=== PATIENT | male | born 1950 | race Caucasian/White ===

== ENCOUNTER 2017-03-01 07:56 | Inpatient (IN) | payer MEDICARE ==
[2017-03-01] VITALS (12 sets, daily range): BP systolic 128–194; BP diastolic 75–102; PULSE 96–116; RESP 16–20; TEMP 98.1–100.4; O2SAT 94–98
[~2017-03-01] VITALS: Ht 170.2 cm; Wt 80.1 kg
[~2017-03-01 07:56] MED LIST: CLON1TAB PO; FENT25DI TOP; MIRT30TA PO; PROP1TAB66 PO
[2017-03-01] MEDS ORDERED: CLON0.5T PO (08:22)
[2017-03-01] MEDS ORDERED: AMLO10TA2 PO (08:22)
[2017-03-01] MEDS ORDERED: MIRT30TA PO (08:22)
[2017-03-01] MEDS ORDERED: FENT25DI T-DERMAL (08:22)
[2017-03-01] MEDS ORDERED: VANCOMYCIN INJ 1,000 MG in SODIUM CHLOR 0.9% 250 ML INJ 250 ML IV STA (08:23)
[2017-03-01] MEDS ORDERED: PIPERACIL-TAZO 4.5 GM PREMIX 100 ML IV STA (08:23)
[2017-03-01] MEDS ORDERED: SODIUM CHLORID 0.9% 500 ML INJ 500 ML IV ONE (08:30)
--- NOTE | 2017-03-01 08:37 | PD ---
HPI Chief Complaint: Facial Pain or Swelling Time Seen by Provider: 08:06 Travel History International Travel<30 days: No Contact w/Intl Traveler<30days: No Traveled to known affect area: No History of Present Illness HPI This 66-year-old male is complaining of pain in his neck and redness of his neck and face. 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 He had initial surgery by Dr. Gonzalez. He was then in [place] and had several recurrences in 2003 and 2006. Recurrences involved the tongue and he had surgery as well as radiation. He also had radiation to his left maxillary sinus. There is apparently not been any sign of cancer since 2006. He has chronic pain on both sides of his neck. He is on fentanyl patches for this He has had extensive surgery as well as radiation to the neck. He was told that he could not have further radiation. He says that Tuesday night the pain in his neck started getting worse. He has had bilateral neck dissection He had trouble moving his neck. He felt like he had a fever Tuesday night. He noted the right side of his face was red this morning. The right side of his neck has been red. He is fed via feeding tube. He does not take anything by mouth. He stopped smoking in 1993. He drinks occasionally PFSH Past Medical History Cancer: Yes Diabetes: No Diminished Hearing: No Hypertension: Yes Tetanus Vaccination: Unknown Past Surgical History Appendectomy: Yes Social History Alcohol Use: Yes ([facility]) Tobacco Use: No Substance Use: No Allergies-Medications (Allergen,Severity, Reaction): Coded Allergies: morphine (Unverified Allergy, Intermediate, Hallucinations, Insomnia, ) Reported Meds & Prescriptions Reported Meds & Active Scripts Active Reported Fentanyl Patch 72 HR (Fentanyl) 25 Mcg/Hr Patch 25 Mcg T-DERMAL Q72H Clonazepam 0.5 Mg Tab 0.5 Mg PO TID Mirtazapine 30 Mg Tab 30 Mg PO HS Amlodipine (Amlodipine Besylate) 10 Mg Tab 10 Mg PO DAILY Review of Systems General / Constitutional: Positive: Fever, No: Chills Eyes: No: Diploplia HENT: Positive: Sore Throat, Neck Pain, No: Headaches, Vertigo Cardiovascular: No: Chest Pain or Discomfort, Palpitations Respiratory: No: Cough Genitourinary: No: Urgency, Frequency Musculoskeletal: No: Myalgias Skin: Positive Rash Neurologic: No: Focal Abnormalities Endocrine: No: Heat Intolerance, Cold Intolerance Hematologic/Lymphatic: No: Easy Bruising Physical Exam Narrative GENERAL: Well-developed male SKIN: Focused skin assessment warm/dry. There is erythema of the right cheek and the right side of the neck extending from the cheek to the supraclavicular area. There are a few erythematous blotches on the upper chest HEAD: Atraumatic. Normocephalic. EYES: Pupils equal and round. No scleral icterus. No injection or drainage. ENT: No nasal bleeding or discharge. Mucous membranes pink and moist. NECK: Trachea midline. No JVD. He has had bilateral neck dissection. There is erythema of the neck on the right side CARDIOVASCULAR: Regular rate and rhythm. No murmur appreciated. RESPIRATORY: No accessory muscle use. Clear to auscultation. Breath sounds equal bilaterally. GASTROINTESTINAL: Abdomen soft, non-tender, nondistended. Hepatic and splenic margins not palpable. Gastrostomy site is present MUSCULOSKELETAL: No obvious deformities. No clubbing. No cyanosis. No edema. NEUROLOGICAL: Awake and alert. No obvious cranial nerve deficits. Motor grossly within normal limits. Speech is somewhat difficult to understand because of the patient's extensive surgery but the content is appropriate PSYCHIATRIC: Appropriate mood and affect; insight and judgment normal. Data Data Last Documented VS Vital Signs Date Time Temp Pulse Resp B/P (MAP) Pulse Ox O2 Delivery O2 Flow Rate FiO2 03/01/17 08:53 104 16 154/82 (106) 97 Room Air 03/01/17 07:58 98.1 Orders Orders Complete Blood Count With Diff (03/01/17 08:23) Comprehensive Metabolic Panel (03/01/17 08:23) Lactic Acid Sepsis Protocol (03/01/17 08:23) Urinalysis - C+S If Indicated (03/01/17 08:23) Blood Culture (03/01/17 08:23) Chest, Single Ap (03/01/17 08:23) Blood Glucose (03/01/17 08:23) Ecg Monitoring (03/01/17 08:23) Iv Access Insert/Monitor (03/01/17 08:23) Oximetry (03/01/17 08:23) Piperacil-Tazo 4.5 Gm Premix (Zosyn 4.5 (03/01/17 08:23) Vancomycin Inj (Vancomycin Inj) (03/01/17 08:23) Sodium Chlorid 0.9% 500 Ml Inj (Ns 500 M (03/01/17 08:30) Ondansetron Inj (Zofran Inj) (03/01/17 08:45) Hydromorphone Pf Inj (Dilaudid Pf Inj) (03/01/17 08:45) Ct Soft Tiss Neck W Iv Cont (03/01/17 08:57) Potassium Chloride Eff (K-Lyte Cl Eff) (03/01/17 09:00) Iohexol 350 Inj (Omnipaque 350 Inj) (03/01/17 09:35) Hydromorphone Pf Inj (Dilaudid Pf Inj) (03/01/17 10:15) Admit Order (Ed Use Only) (03/01/17 10:05) Labs Laboratory Tests Test 03/01/17 08:30 White Blood Count 14.4 TH/MM3 Red Blood Count 4.41 MIL/MM3 Hemoglobin 14.2 GM/DL Hematocrit 42.1 % Mean Corpuscular Volume 95.4 FL Mean Corpuscular Hemoglobin 32.1 PG Mean Corpuscular Hemoglobin Concent 33.6 % Red Cell Distribution Width 13.3 % Platelet Count 179 TH/MM3 Mean Platelet Volume 9.4 FL Neutrophils (%) (Auto) 85.5 % Lymphocytes (%) (Auto) 8.5 % Monocytes (%) (Auto) 5.6 % Eosinophils (%) (Auto) 0.1 % Basophils (%) (Auto) 0.3 % Neutrophils # (Auto) 12.4 TH/MM3 Lymphocytes # (Auto) 1.2 TH/MM3 Monocytes # (Auto) 0.8 TH/MM3 Eosinophils # (Auto) 0.0 TH/MM3 Basophils # (Auto) 0.0 TH/MM3 CBC Comment DIFF FINAL Differential Comment Blood Urea Nitrogen 15 MG/DL Creatinine 0.80 MG/DL Random Glucose 124 MG/DL Total Protein 7.9 GM/DL Albumin 3.2 GM/DL Calcium Level 8.5 MG/DL Alkaline Phosphatase 94 U/L Aspartate Amino Transf (AST/SGOT) 19 U/L Alanine Aminotransferase (ALT/SGPT) 33 U/L Total Bilirubin 0.5 MG/DL Sodium Level 135 MEQ/L Potassium Level 3.1 MEQ/L Chloride Level 99 MEQ/L Carbon Dioxide Level 29.7 MEQ/L Anion Gap 6 MEQ/L Estimat Glomerular Filtration Rate 97 ML/MIN Lactic Acid Level 2.0 mmol/L MDM Medical Decision Making Medical Screen Exam Complete: Yes Emergency Medical Condition: Yes Medical Record Reviewed: Yes Differential Diagnosis Differential includes cellulitis of the face and neck, edema, recurrent tumor Narrative Course Patient's white count is elevated at 14,000. CT scan of the soft tissues of the neck shows postsurgical changes and no definite mass or adenopathy is noted. There are no prior studies to compare this to. Chest x-ray is negative Sepsis Criteria SIRS Criteria (2 or more): Heart rate over 90, WBC > 05927, < 4000 or > 10% bands Sepsis Criteria (SIRS+source): Infect source susp/known Diagnosis Primary Impression: Cellulitis of face Additional Impression: Cellulitis of neck Admitting Information Admitting Physician Requests: Admit Pascual Sosa MD Mar 01, 2017 08:37
[2017-03-01] MEDS ORDERED: ONDANSETRON HCL 4 MG/2 ML VIAL IV PUSH ONE (08:45)
[2017-03-01] MEDS ORDERED: HYDROmorphone HCL PF 2 MG/ML VIAL IV PUSH ONE ×2 (08:45→10:15)
[2017-03-01] MEDS ORDERED: HYDROmorphone HCL PF 1 MG/ML VIAL IV PUSH ONE ×2 (08:45→10:15)
[2017-03-01 08:47] LABS: AUTOMATED NEUTROPHIL # 12.4 TH/MM3 (1.8-7.7); BASOPHIL % 0.3 % (0.0-2.0); EOSINOPHIL % 0.1 % (0.0-4.0); HEMATOCRIT 42.1 % (39.0-51.0); LYMPH % 8.5 % (9.0-44.0); LYMPHOCYTE # 1.2 TH/MM3 (1.0-4.8); MEAN CELL VOLUME 95.4 FL (80.0-100.0); MEAN CORPUSCULAR HEMOGLOBIN 32.1 PG (27.0-34.0); MEAN CORPUSCULAR HGB CONC 33.6 % (32.0-36.0); MONO % 5.6 % (0.0-8.0); NEUT % 85.5 % (16.0-70.0); PLATELET COUNT 179 TH/MM3 (150-450); RED BLOOD COUNT 4.41 MIL/MM3 (4.50-5.90); RED CELL DISTRIBUTION WIDTH 13.3 % (11.6-17.2); WHITE BLOOD COUNT 14.4 TH/MM3 (4.0-11.0)
[2017-03-01 08:48] LABS: HEMO FLAGS DIFF FINAL
[2017-03-01 08:56] LABS: CHLORIDE 99 MEQ/L (98-107); POTASSIUM 3.1 MEQ/L (3.5-5.1); SODIUM (NA) 135 MEQ/L (136-145)
[2017-03-01 08:59] LABS: ANION GAP 6 MEQ/L (5-15); BICARBONATE 29.7 MEQ/L (21.0-32.0); BLOOD UREA NITROGEN 15 MG/DL (7-18)
[2017-03-01] MEDS ORDERED: POTASSIUM CHLORIDE 25 MEQ EFFERVESCENT TAB PO ONE (09:00)
[2017-03-01 09:02] LABS: ALT (GPT) 33 U/L (12-78); AST (GOT) 19 U/L (15-37); GLOMERULAR FILTRATION RATE 97 ML/MIN (>89)
[2017-03-01 09:04] LABS: TOTAL BILIRUBIN ADULT 0.5 MG/DL (0.2-1.0)
[2017-03-01 09:05] LABS: ALKALINE PHOSPHATASE 94 U/L (45-117)
--- NOTE | 2017-03-01 09:10 | RADRPT ---
EXAM DATE/TIME: 03/01/2017 08:42 [facility] COMPARISON: No previous studies available for comparison. INDICATIONS : Short of breath, facial swelling, neck pain. MEDICAL HISTORY : Head and neck cancer, radiation SURGICAL HISTORY : None. ENCOUNTER: Initial ACUITY: 2 days PAIN SCORE: 0/10 LOCATION: Bilateral chest FINDINGS: A single view of the chest demonstrates the lungs to be symmetrically aerated without evidence of mas s, infiltrate or effusion. The cardiomediastinal contours are unremarkable. Osseous structures are intact with a healed left clavicular fracture. CONCLUSION: Normal examination. Clips overlie the supraclavicular region. Denny Gumzan MD on March 01, 2017 at 9:07 Board Certified Radiologist. This report was verified electronically.
[2017-03-01] MEDS ORDERED: IOHEXOL 350 MG/ML 10 ML VIAL (for RAD DIAG) IVCONTRAST ONE (09:35)
--- NOTE | 2017-03-01 09:48 | RADRPT ---
EXAM DATE/TIME: 03/01/2017 09:22 [facility] COMPARISON: No previous studies available for comparison. INDICATIONS : Bilateral head and neck pain. Right facial redness and swelling. IV CONTRAST: 65 cc Omnipaque 350 (iohexol) IV RADIATION DOSE: 13.77 CTDIvol (mGy) MEDICAL HISTORY : Hypertension. Cancer of head and neck. Tongue cancer. SURGICAL HISTORY : Appendectomy. Bilateral neck dissection. ENCOUNTER: Initial ACUITY: 2 days PAIN SCALE: 10/10 LOCATION: Bilateral neck TECHNIQUE: Volumetric scanning of the neck was performed. Using automated exposure control and adjustment of th e mA and/or kV according to patient size, radiation dose was kept as low as reasonably achievable to obtain optimal diagnostic quality images. DICOM format image data is available electronically for r eview and comparison. FINDINGS: There are postsurgical changes involving the base of tongue to the right of midline. There is excisio n of the hyoid bone to the right of midline. Surgical clips and soft tissue fullness is seen involvin g the base of the tongue towards the left. No stranding of the adjacent fat. There is a heterogeneous appearance to the thyroid cartilage likely post therapy related. No appreciable mass or adenopathy. Bilateral carotid stents observed. Note is made of a replaced right subclavian artery. A degenerative cervical spine. CONCLUSION: 1. Post therapy changes involving the neck as detailed above. No recurrent mass or adenopathy appreci ated. In the setting of evaluating for subtle changes relating to recurrence prior examinations are e ssential. 2. Bilateral carotid stents. Tr Galan Jr., MD on March 01, 2017 at 9:39 Board Certified Radiologist. This report was verified electronically.
[2017-03-01 10:52] LABS: BLOOD, URINE NEG (NEG); GLUCOSE,URINE NEG (NEG); KETONE, URINE NEG (NEG); NITRITE,URINE NEG (NEG); PH, URINE 7.5 (5.0-8.5)
[2017-03-01 11:04] LABS: METHOD OF COLLECTION CATH; URINE COLOR YELLOW (YELLW/STRAW)
[2017-03-01 11:05] LABS: COMMENT (UR) CATH-CULT NOT IND; CULTURE IF INDICATED CATH CULTURE NOT IND; RBC, URINE 0-3 /hpf (0-3); RENAL EPITHELIAL CELLS 0-5 /hpf; SQUAMOUS EPITHELIAL CELL URINE 0-5 /hpf (0-5)
[2017-03-01] MEDS ORDERED: Vancomycin Consult Pharmacy 1 EA OTHER SCH (11:15)
[2017-03-01] MEDS ORDERED: fentaNYL 25 MCG/HR PATCH T-DERMAL SCH (12:45)
[2017-03-01] MEDS ORDERED: NALOXONE HCL 0.4 MG/ML AMP IV PUSH PRN (12:45)
[2017-03-01] MEDS ORDERED: clonazePAM 0.5 MG TAB PO SCH (13:00)
--- NOTE | 2017-03-01 13:24 | MH ---
cc: KERWIN LUA M.D. DATE OF ADMISSION: 03/01/2017 ADMISSION DIAGNOSES 1. Possible cellulitis in the right face and neck region. 2. 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 3. Hypertension. 4. Chronic major depression. 5. Anxiety. 6. History of carotid artery disease with bilateral stent placements. 7. Chronic gastrostomy tube feedings secondary to poor swallowing ability and prior aspiration. PERTINENT HISTORY This is a 66-year-old white male who came to the emergency room today because of pain in the right side of his face and right neck region primarily with increased swelling of the right cheek area over the last couple days. He has felt warm and hot at times. He has not checked his temperature but thought he may have had a fever. He was seen in the ED and had a mildly elevated white blood cell count. He was admitted for possible cellulitis. He was given a dose of vancomycin and Zosyn in the ED. He has a long history of previous treatment for her head and neck cancer. Originally he had a squamous cell carcinoma of the neck, had surgery and radiation therapy back in the for regional recurrence of cancer in the neck and had another neck dissection and 2004 and radiation therapy. He had also involvement of the base of tongue at that time and had part of his tongue removed on the right side. He has had part of his tonsillar soft palate region resected, part of his right epiglottis resected in the past with split thickness graft reconstitution. He has had radiation on three separate occasions and his last recurrence was and 2006. He had recurrence in the possible nasal sinus area and radiation and chemotherapy then and apparently had chemistry before that. Apparently he has been cancer-free for awhile now. He is on disability, has gastrostomy tube feedings because he has had severe aspiration in the past with pneumonia and sepsis. He is under treatment for hypertension as mentioned. He denies any heart disease, diabetes, thyroid disease, liver or kidney disease, colon disease or stroke other than he had a TIA. PAST SURGICAL HISTORY 1. He had an appendectomy in 2000. He had head and neck surgeries as mentioned with initial neck dissection in 1993. 1. He had a left neck dissection in 2003. 2. He had a right posterior hemiglossectomy in 2003. 3. He had part of his tonsillar region and lateral soft palate removed with right epiglottic resection and split thickness graft reconstruction. 4. He has had carotid artery stents on the left side in 2001 and on the right side in 2005. It sounds like this may have been more related to fibromuscular dysplasia from prior radiation therapy. 5. He had a gastrostomy tube placed in 2003. ALLERGIES He says that MORPHINE sometimes will cause him to hallucinate. MEDICATIONS 1. Clonazepam. He takes a 1 mg tablet, generally is just taking about half a tablet no more than three times a day. 2. Mirtazapine 30 mg at night for depression. 3. Fentanyl patch 25 mcg patch per hour every 72 hours. 4. Amlodipine 10 mg a day for blood pressure. FAMILY HISTORY His mother is living at 82. She has had possible thyroid cancer. She has had leukemia. Father in his mid-seventies of a stroke, had diabetes. SOCIAL HISTORY He is . He is on disability since 2003. 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 He smoked two packs per day for 25 years prior to quitting in 1993. He drinks liquor but only a couple times a month. REVIEW OF SYSTEMS GENERAL: He has felt warm and thinks maybe he had a low-grade fever even though none was recorded in the ED. HEENT: With the right facial pain. He does not swallow food because of aspiration problems in the past. CARDIOVASCULAR: No chest pain, orthopnea, PND. PULMONARY: No cough, hemoptysis, wheezing. GI: He has a gastrostomy tube. He has no vomiting, diarrhea, constipation, melena, rectal bleeding. : Without complaints. No hematuria. EXTREMITIES: Without swelling. MUSCULOSKELETAL: He does have chronic neck pain from his radiation. He has been on chronic pain treatment. He states his neck pain is worse in the last 2-3 days and it hurts for him to turn his neck. It hurts mainly in the anterior portion of his neck. NEURO: No confusion, focal weakness of the arms or legs. No sensory loss. PHYSICAL EXAMINATION GENERAL: Pleasant male in no distress. He is hard to understand because of part of his tongue being removed which affects his articulation. VITAL SIGNS: His pulse is around 102, BP 120/82, respirations 18, temperature 99.3, O2 sat 95%. HEENT: TMs clear. Pupils equal. Sclerae nonicteric. His right cheek area is puffy, a little tender and red. He has a orozco which makes it difficult to see the skin well underneath there but he has some slight redness extending down to the underside of his mandible. He has a lot of rigidity of his neck from prior radiation and surgeries and just scarring from that. In his mouth he has absence of part of the right side of the tongue. No teeth present. HEART: Regular rate and rhythm. No murmur. LUNGS: Clear. ABDOMEN: Soft, nontender, no masses. EXTREMITIES: Pulses 2+. NEURO: Oriented x3. Cranial nerves intact. Motor strength symmetrical. Sensation intact. LABORATORY His white count was 14.4, hemoglobin 14.2, platelets are good. Sodium 135, potassium was 3.1. He was given potassium in the ED; his BUN and creatinine were good. His AST, ALT, alkaline phosphatase, total protein were good. Albumin 3.2, lactic acid 2.0. Urinalysis was unremarkable. IMAGING STUDIES Chest x-ray showed no acute process. Neck CT scan showed no evidence of any recurrent disease. There were post-therapy changes involving the neck from prior radiation with postsurgical changes involving the base of tongue to the right of midline with prior excision of the hyoid bone to the right of midline. He had some surgical clips present and soft tissue fullness at the base of the tongue towards the left. There were bilateral carotid stents observed. There was some degeneration of the cervical spine as well. ASSESSMENT As noted. PLAN 1. He has been put on Zosyn and vancomycin. 2. I will obtain ID consult just to see if they agree with our diagnosis and treatment at this point. 3. He has been given potassium in the ED for his slight hypokalemia. 4. His BMP and CBC will be checked tomorrow. 5. We will give him Dilaudid for pain and maintain his home meds. 6. DVT prophylaxis will be with SCDs and BRIGIDA guzmane. We will allow him to ambulate as tolerated. 7. He will continue on his gastrostomy tube feedings with Jevity 1.5. He uses 4 cans a day. MD JODY Santiago/AMY /12:46 PM /1:10 PM
[2017-03-01] MEDS ORDERED: HYDROmorphone HCL PF 0.5 MG/0.5 ML SYRINGE IV PUSH PRN (13:30)
[2017-03-01] MEDS: fentaNYL 25 MCG/HR PATCH T-DERMAL SCH ×2 (13:46→16:01)
[2017-03-01] MEDS: HYDROmorphone HCL PF 2 MG/ML VIAL IV PUSH PRN ×2 (14:01→21:30)
--- NOTE | 2017-03-01 16:05 | ED.CB ---
ED Call Back Communication I was called to the floor at around 3:00. The patient was declared a code. He had apparently become cyanotic and unresponsive. On my arrival the patient was somewhat lethargic and short of breath. He was on supplemental oxygen. He was maintaining an airway. Over the course of a few minutes he became more alert and appeared to be breathing well. He was initially confused and did not completely resolve. It is difficult to assess his mental status due to his speech impediment. His color improved and his vital signs were stable. No interventions were performed as he appeared to be improving. Etiology of the episode is not clear, it may have been a seizure or medication reaction Pascual Sosa MD Mar 01, 2017 16:05
[2017-03-01] MEDS: VANCOMYCIN INJ 1,500 MG in SODIUM CHLORID 0.9% 500 ML INJ 500 ML IV SCH (16:17)
[2017-03-01] MEDS: PIPERACIL-TAZO 4.5 GM PREMIX 100 ML IV SCH ×2 (18:17→23:30)
--- NOTE | 2017-03-01 19:49 | PD.CONS ---
History of Present Illness Service Infectious disease Consult Requested By Dr Gokul Abarca Reason for Consult Possible rt facial cellulitis Primary Care Physician Ondina Boyer MD Diagnoses: (1) Cellulitis of face (2) Cellulitis of neck History of Present Illness This is a 66-year-old white male who came to the hospital for increased pain and swelling of the right side of his face and neck that started 3 days before admission. He is now in the ICU as earlier today a code was called when he was cyanotic and unresponsive. At this time patient is alert , oriented. He has been running low grade fevers today. He has a complicated history with squamous cell cancer involving head and neck- first diagnosed in the - treated with surgery and radiation. Recurred in 2003 - - had surgery and radiation again and then again in 2006. Part of tongue and palate had to be removed and patient does have a peg tube now. Past Family Social History Allergies: Coded Allergies: morphine (Unverified Allergy, Intermediate, Hallucinations, Insomnia, ) Past Medical History PAST MEDICAL HISTORY 1. Squamous cell cancer of head and neck - with multiple recurrences requiring extensive surgery and radiation 2. Hypertension PAST SURGICAL HISTORY 1. He had an appendectomy in 2000. He had head and neck surgeries as mentioned with initial neck dissection in 1993. 1. He had a left neck dissection in 2003. 2. He had a right posterior hemiglossectomy in 2003. 3. He had part of his tonsillar region and lateral soft palate removed with right epiglottic resection and split thickness graft reconstruction. 4. He has had carotid artery stents on the left side in 2001 and on the right side in 2005. It sounds like this may have been more related to fibromuscular dysplasia from prior radiation therapy. 5. He had a gastrostomy tube placed in 2003. Active Ordered Medications IV Vancomycin and Zosyn Family History Father - Stroke, DM Mother with ? Thyroid cancer and h/o leukemia Social History . Lives at home On Disability Past h/o smoking Physical Exam Vital Signs Vital Signs Date Time Temp Pulse Resp B/P (MAP) Pulse Ox O2 Delivery O2 Flow Rate FiO2 03/01/17 16:00 100.4 97 16 153/76 (101) 97 03/01/17 16:00 100.4 97 16 153/76 (101) 97 03/01/17 15:04 116 20 166/84 (111) 98 03/01/17 14:59 99.9 97 20 194/102 (132) 98 03/01/17 14:00 96 Nasal Cannula 2.00 03/01/17 11:12 99.3 102 18 128/82 (97) 95 03/01/17 10:55 03/01/17 10:20 103 16 135/78 (97) 98 Nasal Cannula 2.00 03/01/17 08:53 104 16 154/82 (106) 97 Room Air 03/01/17 08:41 16 94 Room Air 03/01/17 08:18 16 03/01/17 07:58 98.1 110 16 148/75 (99) 97 Physical Exam GENERAL: This is a chronically ill patient with swelling and erythema of right side of face/ cheek and neck SKIN: Facial cellulitis on right cheek/ face HEAD: Reconstruction on right side. EYES: Pupils equal round and reactive. Extraocular motions intact. No scleral icterus. No injection or drainage. ENT: Mucosa dry. Partial amputation of tongue NECK: Trachea midline. No JVD or lymphadenopathy. Supple, nontender, no meningeal signs. CARDIOVASCULAR: Regular rate and rhythm without murmurs, gallops, or rubs. RESPIRATORY: Clear to auscultation. Breath sounds equal bilaterally. Some rhonchi GASTROINTESTINAL: Abdomen soft, non-tender, nondistended. No hepato-splenomegaly , or palpable masses. No guarding.Peg tube MUSCULOSKELETAL: Extremities without clubbing, cyanosis, or edema. No joint tenderness, effusion, or edema noted. No calf tenderness. Negative Homans sign bilaterally. NEUROLOGICAL: Awake and alert. Cranial nerves II through XII intact. Motor and sensory grossly within normal limits. Five out of 5 muscle strength in all muscle groups. Normal speech. Laboratory Laboratory Tests Test 03/01/17 08:30 03/01/17 10:40 White Blood Count 14.4 Red Blood Count 4.41 Hemoglobin 14.2 Hematocrit 42.1 Mean Corpuscular Volume 95.4 Mean Corpuscular Hemoglobin 32.1 Mean Corpuscular Hemoglobin Concent 33.6 Red Cell Distribution Width 13.3 Platelet Count 179 Mean Platelet Volume 9.4 Neutrophils (%) (Auto) 85.5 Lymphocytes (%) (Auto) 8.5 Monocytes (%) (Auto) 5.6 Eosinophils (%) (Auto) 0.1 Basophils (%) (Auto) 0.3 Neutrophils # (Auto) 12.4 Lymphocytes # (Auto) 1.2 Monocytes # (Auto) 0.8 Eosinophils # (Auto) 0.0 Basophils # (Auto) 0.0 CBC Comment DIFF FINAL Differential Comment Blood Urea Nitrogen 15 Creatinine 0.80 Random Glucose 124 Total Protein 7.9 Albumin 3.2 Calcium Level 8.5 Alkaline Phosphatase 94 Aspartate Amino Transf (AST/SGOT) 19 Alanine Aminotransferase (ALT/SGPT) 33 Total Bilirubin 0.5 Sodium Level 135 Potassium Level 3.1 Chloride Level 99 Carbon Dioxide Level 29.7 Anion Gap 6 Estimat Glomerular Filtration Rate 97 Lactic Acid Level 2.0 Urine Collection Type CATH Urine Color YELLOW Urine Turbidity CLEAR Urine pH 7.5 Urine Specific [place] 1.033 Urine Protein 100 Urine Glucose (UA) NEG Urine Ketones NEG Urine Occult Blood NEG Urine Nitrite NEG Urine Bilirubin NEG Urine Leukocyte Esterase NEG Urine RBC 0-3 Urine Squamous Epithelial Cells 0-5 Urine Renal Epithelial Cells 0-5 Microscopic Urinalysis Comment CATH-CULT NOT IND Urine Collection Time 10:40 Date/Time Source Procedure Growth Status 03/01/17 08:35 Blood Peripheral Aerobic Blood Culture Pending Received 03/01/17 08:35 Blood Peripheral Anaerobic Blood Culture Pending Received Result Diagram: 03/01/17 0830 03/01/17 0830 Assessment and Plan Problem List: (1) Cellulitis of face ICD Codes: L03.211 - Cellulitis of face Status: Acute Plan: Follow Blood cultures Continue IV Vancomycin- pharmacy to dose Continue IV Zosyn- maximize dose Add Fluconazole 200 mg IV daily (2) Cellulitis of neck ICD Codes: L03.221 - Cellulitis of neck Status: Acute Veronica Stahl MD Mar 01, 2017 19:49
[2017-03-01] MEDS: FLUCONAZOLE 200 MG PREMIX BAG 100 ML IV SCH (21:29)
[2017-03-01] MEDS: MIRTAZAPINE 15 MG TAB PO SCH (21:30)
[2017-03-01] MEDS: clonazePAM 0.5 MG TAB PO SCH (21:32)
[2017-03-01] MEDS ORDERED: LISINOPRIL 10 MG TAB PO ONE (23:20)
[2017-03-02] VITALS (8 sets, daily range): BP systolic 108–156; BP diastolic 69–83; PULSE 92–108; RESP 14–21; TEMP 98.4–100.3; O2SAT 95–98
[2017-03-02] MEDS: VANCOMYCIN INJ 1,500 MG in SODIUM CHLORID 0.9% 500 ML INJ 500 ML IV SCH ×2 (02:30→17:06)
[2017-03-02] MEDS: HYDROmorphone HCL PF 2 MG/ML VIAL IV PUSH PRN ×5 (04:31→19:32)
[2017-03-02 05:16] LABS: BICARBONATE 29.1 MEQ/L (21.0-32.0)
[2017-03-02 05:17] LABS: AUTOMATED NEUTROPHIL # 10.4 TH/MM3 (1.8-7.7); BASOPHIL # 0.1 TH/MM3 (0-0.2); BASOPHIL % 0.6 % (0.0-2.0); EOSINOPHIL % 0.1 % (0.0-4.0); LYMPH % 13.1 % (9.0-44.0); LYMPHOCYTE # 1.7 TH/MM3 (1.0-4.8); MEAN CELL VOLUME 96.1 FL (80.0-100.0); MEAN CORPUSCULAR HEMOGLOBIN 32.4 PG (27.0-34.0); MEAN CORPUSCULAR HGB CONC 33.7 % (32.0-36.0); MONO % 4.8 % (0.0-8.0); NEUT % 81.4 % (16.0-70.0); PLATELET COUNT 184 TH/MM3 (150-450); RED BLOOD COUNT 4.16 MIL/MM3 (4.50-5.90); RED CELL DISTRIBUTION WIDTH 12.8 % (11.6-17.2); WHITE BLOOD COUNT 12.8 TH/MM3 (4.0-11.0)
[2017-03-02 05:20] LABS: HEMO FLAGS DIFF FINAL
[2017-03-02] MEDS: PIPERACIL-TAZO 4.5 GM PREMIX 100 ML IV SCH ×5 (05:21→23:34)
[2017-03-02] MEDS: POTASSIUM CHLORIDE 25 MEQ EFFERVESCENT TAB PO SCH ×2 (08:00→19:33)
[2017-03-02] MEDS: LISINOPRIL 10 MG TAB PO SCH (08:00)
--- NOTE | 2017-03-02 09:08 | HHI.PR ---
Subjective Remarks He still complains of pain with motion of his neck and head. He has slightly less facial pain. I also should note that he had an episode yesterday afternoon on the 3rd floor where he was briefly unresponsive. He was reported to me by the nurse as have some clenching of his hands and slight rigidity with unconsciousness. She call a code but by the time people arrived he has awakened and appeared to be alert. There was no abnormality of his vital signs or oxygen saturation noted. The episode lasted very briefly and he was not noted to have any postictal like lethargy or confusion. On questioning him today he states he has never had any epilepsy or seizures and he had not warning signs for the episode. He was transferred to the Intermediate care unit and has been stable overnight with no acute symptoms. Objective Vitals Vital Signs Date Time Temp Pulse Resp B/P (MAP) Pulse Ox O2 Delivery O2 Flow Rate FiO2 03/02/17 04:00 92 03/02/17 04:00 100.3 92 18 134/83 (100) 97 03/02/17 00:01 100 16 153/79 (103) 97 03/02/17 00:00 106 03/01/17 20:01 98 18 149/90 (109) 97 03/01/17 20:00 96 03/01/17 19:55 96 Nasal Cannula 3.00 03/01/17 16:00 100.4 97 16 153/76 (101) 97 03/01/17 16:00 100.4 97 16 153/76 (101) 97 03/01/17 15:04 116 20 166/84 (111) 98 03/01/17 14:59 99.9 97 20 194/102 (132) 98 03/01/17 14:00 96 Nasal Cannula 2.00 03/01/17 11:12 99.3 102 18 128/82 (97) 95 03/01/17 10:55 03/01/17 10:20 103 16 135/78 (97) 98 Nasal Cannula 2.00 03/01/17 08:53 104 16 154/82 (106) 97 Room Air Result Diagram: 03/02/17 0450 03/02/17 0450 Other Results Laboratory Tests Test 03/01/17 08:30 03/01/17 10:40 03/02/17 04:50 White Blood Count 14.4 TH/MM3 12.8 TH/MM3 Red Blood Count 4.41 MIL/MM3 4.16 MIL/MM3 Hemoglobin 14.2 GM/DL 13.5 GM/DL Hematocrit 42.1 % 40.0 % Mean Corpuscular Volume 95.4 FL 96.1 FL Mean Corpuscular Hemoglobin 32.1 PG 32.4 PG Mean Corpuscular Hemoglobin Concent 33.6 % 33.7 % Red Cell Distribution Width 13.3 % 12.8 % Platelet Count 179 TH/MM3 184 TH/MM3 Mean Platelet Volume 9.4 FL 9.0 FL Neutrophils (%) (Auto) 85.5 % 81.4 % Lymphocytes (%) (Auto) 8.5 % 13.1 % Monocytes (%) (Auto) 5.6 % 4.8 % Eosinophils (%) (Auto) 0.1 % 0.1 % Basophils (%) (Auto) 0.3 % 0.6 % Neutrophils # (Auto) 12.4 TH/MM3 10.4 TH/MM3 Lymphocytes # (Auto) 1.2 TH/MM3 1.7 TH/MM3 Monocytes # (Auto) 0.8 TH/MM3 0.6 TH/MM3 Eosinophils # (Auto) 0.0 TH/MM3 0.0 TH/MM3 Basophils # (Auto) 0.0 TH/MM3 0.1 TH/MM3 CBC Comment DIFF FINAL DIFF FINAL Differential Comment Blood Urea Nitrogen 15 MG/DL 9 MG/DL Creatinine 0.80 MG/DL 0.55 MG/DL Random Glucose 124 MG/DL 106 MG/DL Total Protein 7.9 GM/DL Albumin 3.2 GM/DL Calcium Level 8.5 MG/DL 8.2 MG/DL Alkaline Phosphatase 94 U/L Aspartate Amino Transf (AST/SGOT) 19 U/L Alanine Aminotransferase (ALT/SGPT) 33 U/L Total Bilirubin 0.5 MG/DL Sodium Level 135 MEQ/L 136 MEQ/L Potassium Level 3.1 MEQ/L 3.0 MEQ/L Chloride Level 99 MEQ/L 101 MEQ/L Carbon Dioxide Level 29.7 MEQ/L 29.1 MEQ/L Anion Gap 6 MEQ/L 6 MEQ/L Estimat Glomerular Filtration Rate 97 ML/MIN 149 ML/MIN Lactic Acid Level 2.0 mmol/L Urine Collection Type CATH Urine Color YELLOW Urine Turbidity CLEAR Urine pH 7.5 Urine Specific [place] 1.033 Urine Protein 100 mg/dL Urine Glucose (UA) NEG mg/dL Urine Ketones NEG mg/dL Urine Occult Blood NEG Urine Nitrite NEG Urine Bilirubin NEG Urine Leukocyte Esterase NEG Urine RBC 0-3 /hpf Urine Squamous Epithelial Cells 0-5 /hpf Urine Renal Epithelial Cells 0-5 /hpf Microscopic Urinalysis Comment CATH-CULT NOT IND Urine Collection Time 10:40 Imaging Last Impressions Neck CT 03/01/17 0857 Signed Impressions: Service Date/Time: Wednesday, March 01, 2017 09:22 - CONCLUSION: 1. Post therapy changes involving the neck as detailed above. No recurrent mass or adenopathy appreciated. In the setting of evaluating for subtle changes relating to recurrence prior examinations are essential. 2. Bilateral carotid stents. Tr Galan Jr., MD Chest X-Ray 03/01/17822 Signed Impressions: Service Date/Time: Wednesday, March 01, 2017 08:42 - CONCLUSION: Normal examination. Clips overlie the supraclavicular region. Denny Guzman MD Objective Remarks Exam: He is alert. Patient is difficult for me to understand because of his difficulty articulating due to part of his tongue having been excised. HEENT: Pupils equal, no scleral icterus, Mouth with part of the right side of the tongue missing; he still has some slight swelling and slight redness of the right cheek area Neck: prior neck surgery and radiation changes; he has discomfort of his neck when he tries to turn his head Heart: RRR without murmur Lungs: Clear Abdomen: Soft, nontender, gastrostomy tube present Extremities: No edema, pulses present Neuro: alert, no motor or sensory deficits A/P Assessment and Plan Assessment: --Right facial cellulitis --Hx of squamous cell carcinoma of the head and neck with several operative procedures in the past along with radiation therapy on three prior occasions and prior chemotherapy --Neck pain--may be musculoskeletal --Hypertension --Chronic major depression --Hx of bilateral carotid artery stents --Anxiety --Chronic gastrostomy tube feedings secondary to poor swallowing ability and prior aspiration episodes --Hypokalemia Plan: He was seen by Dr Stahl ([place]) who recommended continuing his Zosyn and Vancomycin. She also added Fluconazole. I ordered some additional potassium. I will order an EEG but it is not clear what caused his brief lapse of unconsciousness yesterday. I will order a CT cervical spine to look for significant cervical disc disease. He is receiving pain medication which helps. Gokul Abarca MD Mar 02, 2017 09:08
--- NOTE | 2017-03-02 10:10 | RADRPT ---
EXAM DATE/TIME: 03/02/2017 09:22 [place] COMPARISON: No previous studies available for comparison. INDICATIONS : Neck pain. RADIATION DOSE: ; Reconstructed from previous dataset, no dose MEDICAL HISTORY : Hypertension. Cardiovascular disease Neck and tongue cancer. SURGICAL HISTORY : Appendectomy. Carotid stent. ENCOUNTER: Initial ACUITY: 1 week PAIN SCALE: 7/10 LOCATION: Bilateral neck TECHNIQUE: Volumetric scanning of the cervical spine was performed. Multiplanar reconstructions in the sagittal, coronal and oblique axial planes were performed. Using automated exposure control and adjustment o f the mA and/or kV according to patient size, radiation dose was kept as low as reasonably achievable to obtain optimal diagnostic quality images. DICOM format image data is available electronically f or review and comparison. FINDINGS: VERTEBRAE: Normal vertebral body height. ALIGNMENT: No evidence of subluxation. C2-C3: The bony spinal canal is normal in size. No evidence of disc bulge or herniation. The neural forami na are bilaterally patent. C3-C4: The bony spinal canal is normal in size. No evidence of disc bulge or herniation. The neural forami na are bilaterally patent. C4-C5: The bony spinal canal is normal in size. No evidence of disc bulge or herniation. The neural forami na are bilaterally patent. C5-C6: The bony spinal canal is normal in size. No evidence of disc bulge or herniation. The neural forami na are bilaterally patent. C6-C7: The bony spinal canal is normal in size. No evidence of disc bulge or herniation. The neural forami na are bilaterally patent. C7-T1: The bony spinal canal is normal in size. No evidence of disc bulge or herniation. The neural forami na are bilaterally patent. CONCLUSION: Normal examination. Denny Guzman MD on March 02, 2017 at 10:08 Board Certified Radiologist. This report was verified electronically.
[2017-03-02] MEDS ORDERED: PHARMACY ORDERED LAB ONE (15:45)
[2017-03-02] MEDS ORDERED: POTASSIUM CHLORIDE 25 MEQ EFFERVESCENT TAB PO ONE (16:15)
[2017-03-02] MEDS: FLUCONAZOLE 200 MG PREMIX BAG 100 ML IV SCH (19:31)
[2017-03-02] MEDS: clonazePAM 0.5 MG TAB PO SCH (19:32)
[2017-03-02] MEDS: MIRTAZAPINE 15 MG TAB PO SCH (19:32)
[2017-03-03] VITALS (9 sets, daily range): BP systolic 119–145; BP diastolic 68–82; PULSE 96–114; RESP 13–22; TEMP 98.9–100.3; O2SAT 95–97
[2017-03-03] MEDS: VANCOMYCIN INJ 1,500 MG in SODIUM CHLORID 0.9% 500 ML INJ 500 ML IV SCH ×3 (00:44→16:45)
[2017-03-03] MEDS: HYDROmorphone HCL PF 2 MG/ML VIAL IV PUSH PRN ×5 (03:14→20:37)
[2017-03-03] MEDS: PIPERACIL-TAZO 4.5 GM PREMIX 100 ML IV SCH ×3 (05:48→18:34)
[2017-03-03 06:14] LABS: AUTOMATED NEUTROPHIL # 7.1 TH/MM3 (1.8-7.7); BASOPHIL # 0.1 TH/MM3 (0-0.2); EOSINOPHIL # 0.1 TH/MM3 (0-0.4); EOSINOPHIL % 0.5 % (0.0-4.0); HEMATOCRIT 37.1 % (39.0-51.0); LYMPH % 16.6 % (9.0-44.0); LYMPHOCYTE # 1.7 TH/MM3 (1.0-4.8); MEAN CORPUSCULAR HEMOGLOBIN 33.3 PG (27.0-34.0); MEAN CORPUSCULAR HGB CONC 34.7 % (32.0-36.0); MONO % 10.6 % (0.0-8.0); NEUT % 71.3 % (16.0-70.0); PLATELET COUNT 164 TH/MM3 (150-450); RED BLOOD COUNT 3.86 MIL/MM3 (4.50-5.90); RED CELL DISTRIBUTION WIDTH 13.1 % (11.6-17.2); WHITE BLOOD COUNT 10.1 TH/MM3 (4.0-11.0)
[2017-03-03 06:17] LABS: HEMO FLAGS DIFF FINAL
[2017-03-03 06:22] LABS: POTASSIUM 3.5 MEQ/L (3.5-5.1)
[2017-03-03 06:25] LABS: BICARBONATE 27.7 MEQ/L (21.0-32.0)
--- NOTE | 2017-03-03 07:02 | HHI.PR ---
Subjective Remarks Patient states his facial and neck pain is getting better. He is able to move his head better without as much pain. Objective Vitals Vital Signs Date Time Temp Pulse Resp B/P (MAP) Pulse Ox O2 Delivery O2 Flow Rate FiO2 03/03/17 00:00 100.3 100 20 138/68 (91) 95 03/03/17 00:00 98 03/02/17 20:00 100.3 104 21 109/71 (84) 95 03/02/17 20:00 104 03/02/17 16:00 99.6 108 14 123/70 (87) 98 03/02/17 16:00 108 03/02/17 12:00 98.4 96 15 156/80 (105) 97 03/02/17 12:00 96 03/02/17 11:36 98 Nasal Cannula 3.00 03/02/17 08:00 99.1 96 14 108/69 (82) 98 03/02/17 08:00 96 Result Diagram: 03/03/17 0558 03/03/17 0558 Other Results Laboratory Tests Test 03/01/17 08:30 03/01/17 10:40 03/02/17 04:50 03/02/17 13:50 White Blood Count 14.4 TH/MM3 12.8 TH/MM3 Red Blood Count 4.41 MIL/MM3 4.16 MIL/MM3 Hemoglobin 14.2 GM/DL 13.5 GM/DL Hematocrit 42.1 % 40.0 % Mean Corpuscular Volume 95.4 FL 96.1 FL Mean Corpuscular Hemoglobin 32.1 PG 32.4 PG Mean Corpuscular Hemoglobin Concent 33.6 % 33.7 % Red Cell Distribution Width 13.3 % 12.8 % Platelet Count 179 TH/MM3 184 TH/MM3 Mean Platelet Volume 9.4 FL 9.0 FL Neutrophils (%) (Auto) 85.5 % 81.4 % Lymphocytes (%) (Auto) 8.5 % 13.1 % Monocytes (%) (Auto) 5.6 % 4.8 % Eosinophils (%) (Auto) 0.1 % 0.1 % Basophils (%) (Auto) 0.3 % 0.6 % Neutrophils # (Auto) 12.4 TH/MM3 10.4 TH/MM3 Lymphocytes # (Auto) 1.2 TH/MM3 1.7 TH/MM3 Monocytes # (Auto) 0.8 TH/MM3 0.6 TH/MM3 Eosinophils # (Auto) 0.0 TH/MM3 0.0 TH/MM3 Basophils # (Auto) 0.0 TH/MM3 0.1 TH/MM3 CBC Comment DIFF FINAL DIFF FINAL Differential Comment Blood Urea Nitrogen 15 MG/DL 9 MG/DL Creatinine 0.80 MG/DL 0.55 MG/DL Random Glucose 124 MG/DL 106 MG/DL Total Protein 7.9 GM/DL Albumin 3.2 GM/DL Calcium Level 8.5 MG/DL 8.2 MG/DL Alkaline Phosphatase 94 U/L Aspartate Amino Transf (AST/SGOT) 19 U/L Alanine Aminotransferase (ALT/SGPT) 33 U/L Total Bilirubin 0.5 MG/DL Sodium Level 135 MEQ/L 136 MEQ/L Potassium Level 3.1 MEQ/L 3.0 MEQ/L 3.1 MEQ/L Chloride Level 99 MEQ/L 101 MEQ/L Carbon Dioxide Level 29.7 MEQ/L 29.1 MEQ/L Anion Gap 6 MEQ/L 6 MEQ/L Estimat Glomerular Filtration Rate 97 ML/MIN 149 ML/MIN Lactic Acid Level 2.0 mmol/L Urine Collection Type CATH Urine Color YELLOW Urine Turbidity CLEAR Urine pH 7.5 Urine Specific [place] 1.033 Urine Protein 100 mg/dL Urine Glucose (UA) NEG mg/dL Urine Ketones NEG mg/dL Urine Occult Blood NEG Urine Nitrite NEG Urine Bilirubin NEG Urine Leukocyte Esterase NEG Urine RBC 0-3 /hpf Urine Squamous Epithelial Cells 0-5 /hpf Urine Renal Epithelial Cells 0-5 /hpf Microscopic Urinalysis Comment CATH-CULT NOT IND Urine Collection Time 10:40 Test 03/02/17 16:50 03/03/17 05:58 Vancomycin Level Trough 9.5 MCG/ML White Blood Count 10.1 TH/MM3 Red Blood Count 3.86 MIL/MM3 Hemoglobin 12.9 GM/DL Hematocrit 37.1 % Mean Corpuscular Volume 96.0 FL Mean Corpuscular Hemoglobin 33.3 PG Mean Corpuscular Hemoglobin Concent 34.7 % Red Cell Distribution Width 13.1 % Platelet Count 164 TH/MM3 Mean Platelet Volume 8.5 FL Neutrophils (%) (Auto) 71.3 % Lymphocytes (%) (Auto) 16.6 % Monocytes (%) (Auto) 10.6 % Eosinophils (%) (Auto) 0.5 % Basophils (%) (Auto) 1.0 % Neutrophils # (Auto) 7.1 TH/MM3 Lymphocytes # (Auto) 1.7 TH/MM3 Monocytes # (Auto) 1.1 TH/MM3 Eosinophils # (Auto) 0.1 TH/MM3 Basophils # (Auto) 0.1 TH/MM3 CBC Comment DIFF FINAL Differential Comment Blood Urea Nitrogen 14 MG/DL Creatinine 0.79 MG/DL Random Glucose 132 MG/DL Calcium Level 7.8 MG/DL Sodium Level 137 MEQ/L Potassium Level 3.5 MEQ/L Chloride Level 102 MEQ/L Carbon Dioxide Level 27.7 MEQ/L Anion Gap 7 MEQ/L Estimat Glomerular Filtration Rate 98 ML/MIN Imaging Last Impressions Cervical Spine CT 03/02/17 0000 Signed Impressions: Service Date/Time: Thursday, March 02, 2017 09:22 - CONCLUSION: Normal examination. Denny Guzman MD Neck CT 03/01/17 0857 Signed Impressions: Service Date/Time: Wednesday, March 01, 2017 09:22 - CONCLUSION: 1. Post therapy changes involving the neck as detailed above. No recurrent mass or adenopathy appreciated. In the setting of evaluating for subtle changes relating to recurrence prior examinations are essential. 2. Bilateral carotid stents. Tr Galan Jr., MD Chest X-Ray 03/01/17822 Signed Impressions: Service Date/Time: Wednesday, March 01, 2017 08:42 - CONCLUSION: Normal examination. Clips overlie the supraclavicular region. Denny Guzman MD Last Impressions Neck CT 03/01/1757 Signed Impressions: Service Date/Time: Wednesday, March 01, 2017 09:22 - CONCLUSION: 1. Post therapy changes involving the neck as detailed above. No recurrent mass or adenopathy appreciated. In the setting of evaluating for subtle changes relating to recurrence prior examinations are essential. 2. Bilateral carotid stents. Tr Galan Jr., MD Chest X-Ray 03/01/17822 Signed Impressions: Service Date/Time: Wednesday, March 01, 2017 08:42 - CONCLUSION: Normal examination. Clips overlie the supraclavicular region. Denny Guzman MD Objective Remarks Exam: He is alert. Patient is difficult for me to understand because of his difficulty articulating due to part of his tongue having been excised. HEENT: Pupils equal, no scleral icterus, Mouth with part of the right side of the tongue missing; he still has some slight swelling and slight redness of the right cheek area but is improving Neck: prior neck surgery and radiation changes; he has less discomfort of his neck when he tries to turn his head today Heart: RRR without murmur Lungs: Clear Abdomen: Soft, nontender, gastrostomy tube present Extremities: No edema, pulses present Neuro: alert, no motor or sensory deficits A/P Assessment and Plan Assessment: --Right facial cellulitis --Hx of squamous cell carcinoma of the head and neck with several operative procedures in the past along with radiation therapy on three prior occasions and prior chemotherapy --Neck pain--may be musculoskeletal --Hypertension --Chronic major depression --Hx of bilateral carotid artery stents --Anxiety --Chronic gastrostomy tube feedings secondary to poor swallowing ability and prior aspiration episodes --Hypokalemia--improved Plan: He was seen by Dr Stahl ([place]) who recommended continuing his Zosyn and Vancomycin. She also added Fluconazole. Continue these medications. I ordered some additional potassium. Transfer to 3rd floor. Gokul Abarca MD Mar 03, 2017 07:02
[2017-03-03] MEDS ORDERED: POTASSIUM CHLORIDE 25 MEQ EFFERVESCENT TAB PO ONE (08:00)
[2017-03-03] MEDS: LISINOPRIL 10 MG TAB PO SCH (08:41)
[2017-03-03] MEDS: POTASSIUM CHLORIDE 25 MEQ EFFERVESCENT TAB PO SCH ×2 (08:42→20:37)
--- NOTE | 2017-03-03 11:34 | HHI.IDPN ---
Subjective Subjective Remarks Occasional low grade fever Pain is better No shortness of breath Antibiotics IV Vancomycin Zosyn and Fluconazole Lines Peripheral IV Past Medical History PAST MEDICAL HISTORY 1. Squamous cell cancer of head and neck - with multiple recurrences requiring extensive surgery and radiation 2. Hypertension PAST SURGICAL HISTORY 1. He had an appendectomy in 2000. He had head and neck surgeries as mentioned with initial neck dissection in 1993. 1. He had a left neck dissection in 2003. 2. He had a right posterior hemiglossectomy in 2003. 3. He had part of his tonsillar region and lateral soft palate removed with right epiglottic resection and split thickness graft reconstruction. 4. He has had carotid artery stents on the left side in 2001 and on the right side in 2005. It sounds like this may have been more related to fibromuscular dysplasia from prior radiation therapy. 5. He had a gastrostomy tube placed in 2003. Allergies: Coded Allergies: morphine (Unverified Allergy, Intermediate, Hallucinations, Insomnia, ) Review of Systems Constitutional Constitutional: Fever Objective . Vital Signs Date Time Temp Pulse Resp B/P (MAP) Pulse Ox O2 Delivery O2 Flow Rate FiO2 03/03/17 09:00 96 14 03/03/17 08:11 98.9 98 21 125/72 (89) 96 03/03/17 08:00 103 03/03/17 04:14 102 22 145/82 (103) 03/03/17 04:00 100 03/03/17 00:00 100.3 100 20 138/68 (91) 95 03/03/17 00:00 98 03/02/17 20:00 100.3 104 21 109/71 (84) 95 03/02/17 20:00 104 03/02/17 16:00 99.6 108 14 123/70 (87) 98 03/02/17 16:00 108 03/02/17 12:00 98.4 96 15 156/80 (105) 97 03/02/17 12:00 96 03/02/17 11:36 98 Nasal Cannula 3.00 . Laboratory Tests Test 03/02/17 04:50 03/03/17 05:58 White Blood Count 12.8 TH/MM3 10.1 TH/MM3 Red Blood Count 4.16 MIL/MM3 3.86 MIL/MM3 Hemoglobin 13.5 GM/DL 12.9 GM/DL Hematocrit 40.0 % 37.1 % Mean Corpuscular Volume 96.1 FL 96.0 FL Mean Corpuscular Hemoglobin 32.4 PG 33.3 PG Mean Corpuscular Hemoglobin Concent 33.7 % 34.7 % Red Cell Distribution Width 12.8 % 13.1 % Platelet Count 184 TH/MM3 164 TH/MM3 Mean Platelet Volume 9.0 FL 8.5 FL Neutrophils (%) (Auto) 81.4 % 71.3 % Lymphocytes (%) (Auto) 13.1 % 16.6 % Monocytes (%) (Auto) 4.8 % 10.6 % Eosinophils (%) (Auto) 0.1 % 0.5 % Basophils (%) (Auto) 0.6 % 1.0 % Neutrophils # (Auto) 10.4 TH/MM3 7.1 TH/MM3 Lymphocytes # (Auto) 1.7 TH/MM3 1.7 TH/MM3 Monocytes # (Auto) 0.6 TH/MM3 1.1 TH/MM3 Eosinophils # (Auto) 0.0 TH/MM3 0.1 TH/MM3 Basophils # (Auto) 0.1 TH/MM3 0.1 TH/MM3 CBC Comment DIFF FINAL DIFF FINAL Differential Comment Laboratory Tests Test 03/02/17 04:50 03/02/17 13:50 03/03/17 05:58 Blood Urea Nitrogen 9 MG/DL 14 MG/DL Creatinine 0.55 MG/DL 0.79 MG/DL Random Glucose 106 MG/DL 132 MG/DL Calcium Level 8.2 MG/DL 7.8 MG/DL Sodium Level 136 MEQ/L 137 MEQ/L Potassium Level 3.0 MEQ/L 3.1 MEQ/L 3.5 MEQ/L Chloride Level 101 MEQ/L 102 MEQ/L Carbon Dioxide Level 29.1 MEQ/L 27.7 MEQ/L Anion Gap 6 MEQ/L 7 MEQ/L Estimat Glomerular Filtration Rate 149 ML/MIN 98 ML/MIN Microbiology Date/Time Source Procedure Growth Status 03/01/17 08:35 Blood Peripheral Aerobic Blood Culture - Preliminary NO GROWTH IN 2 DAYS Resulted 03/01/17 08:35 Blood Peripheral Anaerobic Blood Culture - Preliminary NO GROWTH IN 2 DAYS Resulted 03/01/17 08:30 Blood Peripheral Aerobic Blood Culture - Preliminary NO GROWTH IN 2 DAYS Resulted 03/01/17 08:30 Blood Peripheral Anaerobic Blood Culture - Preliminary NO GROWTH IN 2 DAYS Resulted Physical Exam GENERAL: This is a chronically ill patient with swelling and erythema of right side of face/ cheek and neck which is improved SKIN: Facial cellulitis on right cheek/ face- improved HEAD: Reconstruction on right side. EYES: Pupils equal round and reactive. Extraocular motions intact. No scleral icterus. No injection or drainage. ENT: Mucosa dry. Partial amputation of tongue NECK: Trachea midline. No JVD or lymphadenopathy. Supple, nontender, no meningeal signs. CARDIOVASCULAR: Regular rate and rhythm without murmurs, gallops, or rubs. RESPIRATORY: Clear to auscultation. Breath sounds equal bilaterally. Some rhonchi GASTROINTESTINAL: Abdomen soft, non-tender, nondistended. No hepato-splenomegaly , or palpable masses. No guarding.Peg tube MUSCULOSKELETAL: Extremities without clubbing, cyanosis, or edema. No joint tenderness, effusion, or edema noted. No calf tenderness. Negative Homans sign bilaterally. NEUROLOGICAL: Awake and alert. Cranial nerves II through XII intact. Motor and sensory grossly within normal limits. Five out of 5 muscle strength in all muscle groups. Slurred speech Assessment & Plan Diagnosis: (1) Cellulitis of face ICD Codes: L03.211 - Cellulitis of face Status: Acute Plan: Blood cultures- negative so far Continue IV Vancomycin- pharmacy to dose Continue IV Zosyn- maximize dose Continue Fluconazole 200 mg IV daily Leucocytosis resolved and clinically improved. If remains afebrile for 24 hrs should be able to change to Augmentin (2) Cellulitis of neck ICD Codes: L03.221 - Cellulitis of neck Status: Acute Veronica Stahl MD Mar 03, 2017 11:34
[2017-03-03] MEDS ORDERED: PHARMACY ORDERED LAB ONE (17:00)
[2017-03-03] MEDS: clonazePAM 0.5 MG TAB PO SCH (20:38)
[2017-03-03] MEDS: MIRTAZAPINE 15 MG TAB PO SCH (20:39)
[2017-03-03] MEDS: FLUCONAZOLE 200 MG PREMIX BAG 100 ML IV SCH (20:40)
[2017-03-04] VITALS: BP 131/80; PULSE 112; PULSE 96; RESP 14; TEMP 99.6; O2SAT 95
[2017-03-04] MEDS: PIPERACIL-TAZO 4.5 GM PREMIX 100 ML IV SCH ×2 (00:15→06:20)
[2017-03-04] MEDS: HYDROmorphone HCL PF 2 MG/ML VIAL IV PUSH PRN ×2 (00:16→06:21)
[2017-03-04] MEDS: VANCOMYCIN INJ 1,500 MG in SODIUM CHLORID 0.9% 500 ML INJ 500 ML IV SCH (01:14)
[2017-03-04 04:00] VITALS: BP 141/76; PULSE 102; PULSE 106; RESP 20; TEMP 98.7; O2SAT 93
[2017-03-04 06:06] LABS: AUTOMATED NEUTROPHIL # 6.1 TH/MM3 (1.8-7.7); BASOPHIL # 0.1 TH/MM3 (0-0.2); BASOPHIL % 1.3 % (0.0-2.0); EOSINOPHIL # 0.1 TH/MM3 (0-0.4); HEMATOCRIT 37.5 % (39.0-51.0); HEMO FLAGS DIFF FINAL; LYMPH % 16.3 % (9.0-44.0); LYMPHOCYTE # 1.5 TH/MM3 (1.0-4.8); MEAN CELL VOLUME 95.7 FL (80.0-100.0); MEAN CORPUSCULAR HGB CONC 33.4 % (32.0-36.0); MONO % 13.4 % (0.0-8.0); PLATELET COUNT 181 TH/MM3 (150-450); RED BLOOD COUNT 3.91 MIL/MM3 (4.50-5.90)
[2017-03-04 06:12] LABS: POTASSIUM 3.3 MEQ/L (3.5-5.1)
[2017-03-04 06:15] LABS: BICARBONATE 28.8 MEQ/L (21.0-32.0)
[2017-03-04] MEDS ORDERED: POTASSIUM CHLORIDE 20 MEQ CONTROLLED RELEASE TAB PO ONE (07:30)
--- NOTE | 2017-03-04 07:43 | HHI.PR ---
Subjective Remarks He is doing better. Less pain. No fever. Objective Vitals Vital Signs Date Time Temp Pulse Resp B/P (MAP) Pulse Ox O2 Delivery O2 Flow Rate FiO2 03/04/17 04:00 98.7 102 20 141/76 (97) 93 03/04/17 04:00 106 03/04/17 00:00 99.6 96 14 131/80 (97) 95 03/04/17 00:00 112 03/03/17 20:00 114 03/03/17 20:00 99.6 100 17 143/80 (101) 96 03/03/17 16:00 100 03/03/17 16:00 99.0 102 13 119/71 (87) 97 03/03/17 12:00 96 03/03/17 12:00 99.2 96 13 136/73 (94) 95 03/03/17 09:00 96 14 03/03/17 08:11 98.9 98 21 125/72 (89) 96 03/03/17 08:00 103 Result Diagram: 03/04/17 0549 03/04/17 0549 Other Results Laboratory Tests Test 03/02/17 13:50 03/02/17 16:50 03/03/17 05:58 03/03/17 16:35 Potassium Level 3.1 MEQ/L 3.5 MEQ/L Vancomycin Level Trough 9.5 MCG/ML 20.5 MCG/ML White Blood Count 10.1 TH/MM3 Red Blood Count 3.86 MIL/MM3 Hemoglobin 12.9 GM/DL Hematocrit 37.1 % Mean Corpuscular Volume 96.0 FL Mean Corpuscular Hemoglobin 33.3 PG Mean Corpuscular Hemoglobin Concent 34.7 % Red Cell Distribution Width 13.1 % Platelet Count 164 TH/MM3 Mean Platelet Volume 8.5 FL Neutrophils (%) (Auto) 71.3 % Lymphocytes (%) (Auto) 16.6 % Monocytes (%) (Auto) 10.6 % Eosinophils (%) (Auto) 0.5 % Basophils (%) (Auto) 1.0 % Neutrophils # (Auto) 7.1 TH/MM3 Lymphocytes # (Auto) 1.7 TH/MM3 Monocytes # (Auto) 1.1 TH/MM3 Eosinophils # (Auto) 0.1 TH/MM3 Basophils # (Auto) 0.1 TH/MM3 CBC Comment DIFF FINAL Differential Comment Blood Urea Nitrogen 14 MG/DL Creatinine 0.79 MG/DL Random Glucose 132 MG/DL Calcium Level 7.8 MG/DL Sodium Level 137 MEQ/L Chloride Level 102 MEQ/L Carbon Dioxide Level 27.7 MEQ/L Anion Gap 7 MEQ/L Estimat Glomerular Filtration Rate 98 ML/MIN Test 03/04/17 05:49 White Blood Count 9.0 TH/MM3 Red Blood Count 3.91 MIL/MM3 Hemoglobin 12.5 GM/DL Hematocrit 37.5 % Mean Corpuscular Volume 95.7 FL Mean Corpuscular Hemoglobin 32.0 PG Mean Corpuscular Hemoglobin Concent 33.4 % Red Cell Distribution Width 13.0 % Platelet Count 181 TH/MM3 Mean Platelet Volume 8.6 FL Neutrophils (%) (Auto) 68.0 % Lymphocytes (%) (Auto) 16.3 % Monocytes (%) (Auto) 13.4 % Eosinophils (%) (Auto) 1.0 % Basophils (%) (Auto) 1.3 % Neutrophils # (Auto) 6.1 TH/MM3 Lymphocytes # (Auto) 1.5 TH/MM3 Monocytes # (Auto) 1.2 TH/MM3 Eosinophils # (Auto) 0.1 TH/MM3 Basophils # (Auto) 0.1 TH/MM3 CBC Comment DIFF FINAL Differential Comment Blood Urea Nitrogen 10 MG/DL Creatinine 0.65 MG/DL Random Glucose 103 MG/DL Calcium Level 8.4 MG/DL Sodium Level 139 MEQ/L Potassium Level 3.3 MEQ/L Chloride Level 103 MEQ/L Carbon Dioxide Level 28.8 MEQ/L Anion Gap 7 MEQ/L Estimat Glomerular Filtration Rate 123 ML/MIN Imaging Last Impressions Cervical Spine CT 03/02/17 0000 Signed Impressions: Service Date/Time: Thursday, March 02, 2017 09:22 - CONCLUSION: Normal examination. Denny Guzman MD Neck CT 03/01/17 0857 Signed Impressions: Service Date/Time: Wednesday, March 01, 2017 09:22 - CONCLUSION: 1. Post therapy changes involving the neck as detailed above. No recurrent mass or adenopathy appreciated. In the setting of evaluating for subtle changes relating to recurrence prior examinations are essential. 2. Bilateral carotid stents. Tr Galan Jr., MD Chest X-Ray 03/01/17 0823 Signed Impressions: Service Date/Time: Wednesday, March 01, 2017 08:42 - CONCLUSION: Normal examination. Clips overlie the supraclavicular region. Denny Guzman MD Last Impressions Neck CT 03/01/1757 Signed Impressions: Service Date/Time: Wednesday, March 01, 2017 09:22 - CONCLUSION: 1. Post therapy changes involving the neck as detailed above. No recurrent mass or adenopathy appreciated. In the setting of evaluating for subtle changes relating to recurrence prior examinations are essential. 2. Bilateral carotid stents. Tr Galan Jr., MD Chest X-Ray 03/01/17822 Signed Impressions: Service Date/Time: Wednesday, March 01, 2017 08:42 - CONCLUSION: Normal examination. Clips overlie the supraclavicular region. Denny Guzman MD Objective Remarks Exam: He is alert. Patient is difficult for me to understand because of his difficulty articulating due to part of his tongue having been excised. HEENT: Pupils equal, no scleral icterus, Mouth with part of the right side of the tongue missing; he still has some slight swelling and slight redness of the right cheek area but it is continuing to improve with minimal swelling now Neck: prior neck surgery and radiation changes; he has much less discomfort of his neck when he tries to turn his head today Heart: RRR without murmur Lungs: Clear Abdomen: Soft, nontender, gastrostomy tube present Extremities: No edema, pulses present Neuro: alert, no motor or sensory deficits A/P Assessment and Plan Assessment: --Right facial cellulitis--much improved and afebrile --Hx of squamous cell carcinoma of the head and neck with several operative procedures in the past along with radiation therapy on three prior occasions and prior chemotherapy --Neck pain--may be musculoskeletal --Hypertension --Chronic major depression --Hx of bilateral carotid artery stents --Anxiety --Chronic gastrostomy tube feedings secondary to poor swallowing secondary to prior head and neck surgery and radiation therapy --Minimal hypokalemia Plan: I talked with Dr Stahl this morning and she states his IV Zosyn and Vancomycin can be changed to Augmentin 875mg twice a day for 14 days and the IV Fluconazole can be changed to 200mg orally once a day for 7 days. I will give him some additional potassium today. I will have the nurses ambulate him also. Gokul Abarca MD Mar 04, 2017 07:43
[2017-03-04 08:00] VITALS: BP 159/71; PULSE 102; RESP 18; TEMP 98.1; O2SAT 97
[2017-03-04] MEDS: AMOXICILLIN/CLAVULANATE K 875 MG TAB PO SCH ×2 (09:39→20:14)
[2017-03-04] MEDS: FLUCONAZOLE 200 MG TAB PO SCH (09:39)
[2017-03-04] MEDS: LISINOPRIL 10 MG TAB PO SCH (09:40)
[2017-03-04] MEDS: POTASSIUM CHLORIDE 25 MEQ EFFERVESCENT TAB PO SCH ×2 (09:40→20:15)
[2017-03-04 12:00] VITALS: BP 149/99; PULSE 98; RESP 18; TEMP 98.3; O2SAT 97
[2017-03-04] MEDS ORDERED: REMOVE OLD DURAGESIC (FENTANYL) PATCH T-DERMAL SCH (14:00)
[2017-03-04] MEDS: fentaNYL 25 MCG/HR PATCH T-DERMAL SCH (14:06)
[2017-03-04] MEDS: ACETAMINOPHEN/HYDROcodone 325 MG/5 MG TAB PO PRN ×2 (15:34→20:15)
[2017-03-04 16:00] VITALS: BP 144/74; PULSE 104; RESP 22; TEMP 98.1; O2SAT 97
[2017-03-04 20:00] VITALS: BP 140/80; PULSE 97; PULSE 99; RESP 16; TEMP 98.6; O2SAT 98
[2017-03-04] MEDS: MIRTAZAPINE 15 MG TAB PO SCH (20:15)
[2017-03-04] MEDS: clonazePAM 0.5 MG TAB PO SCH (20:15)
[2017-03-05] VITALS: BP 162/82; PULSE 102; RESP 24; TEMP 99; O2SAT 95
[2017-03-05] MEDS: ACETAMINOPHEN/HYDROcodone 325 MG/5 MG TAB PO PRN ×2 (02:29→09:35)
[2017-03-05 04:00] VITALS: BP 137/76; PULSE 103; RESP 22; TEMP 97.6; O2SAT 94
[2017-03-05 07:02] LABS: BASOPHIL # 0.1 TH/MM3 (0-0.2); BASOPHIL % 1.1 % (0.0-2.0); EOSINOPHIL # 0.1 TH/MM3 (0-0.4); EOSINOPHIL % 1.4 % (0.0-4.0); HEMATOCRIT 43.5 % (39.0-51.0); HEMO FLAGS DIFF FINAL; LYMPH % 24.8 % (9.0-44.0); LYMPHOCYTE # 2.3 TH/MM3 (1.0-4.8); MEAN CELL VOLUME 96.7 FL (80.0-100.0); MEAN CORPUSCULAR HEMOGLOBIN 31.6 PG (27.0-34.0); MEAN CORPUSCULAR HGB CONC 32.7 % (32.0-36.0); MONO % 9.5 % (0.0-8.0); NEUT % 63.2 % (16.0-70.0); RED CELL DISTRIBUTION WIDTH 13.4 % (11.6-17.2); WHITE BLOOD COUNT 9.4 TH/MM3 (4.0-11.0)
[2017-03-05 07:10] LABS: POTASSIUM 3.3 MEQ/L (3.5-5.1)
[2017-03-05 07:15] LABS: BICARBONATE 29.6 MEQ/L (21.0-32.0)
[2017-03-05 07:19] LABS: PLATELET COUNT 248 TH/MM3 (150-450)
[2017-03-05] MEDS ORDERED: AMOX875T2 PO (07:52)
[2017-03-05] MEDS ORDERED: HYDR-3516 PO (07:52)
[2017-03-05] MEDS ORDERED: DIFL200T PO (07:52)
[2017-03-05] MEDS ORDERED: POTA-163 PO (07:52)
[2017-03-05] MEDS ORDERED: LISI10TA3 PO (07:52)
[2017-03-05] MEDS ORDERED: POTASSIUM CHLORIDE 10 MEQ CONTROLLED RELEASE TAB PO ONE (08:00)
--- NOTE | 2017-03-05 08:15 | HHI.DS ---
Discharge Summary Admission Date Mar 02, 2017 at 09:11 Discharge Date: Mar 05, 2017 Admitting Diagnosis CELLULITIS OF FACE AND NECK (1) Cellulitis of face Diagnosis: Principal ICD Codes: L03.211 - Cellulitis of face Status: Acute (2) Cellulitis of neck Diagnosis: Principal ICD Codes: L03.221 - Cellulitis of neck Status: Acute (3) History of head and neck cancer Diagnosis: Secondary ICD Codes: Z85.89 - Personal history of malignant neoplasm of other organs and systems (4) Hx of head and neck radiation Diagnosis: Secondary ICD Codes: Z92.3 - Personal history of irradiation (5) HTN (hypertension) Diagnosis: Secondary ICD Codes: I10 - HTN (hypertension) Status: Acute (6) Depression Diagnosis: Secondary ICD Codes: F32.9 - Depression Status: Acute (7) Hypokalemia Diagnosis: Secondary ICD Codes: E87.6 - Hypokalemia (8) PEG tube Diagnosis: Secondary Status: Acute (9) Chronic pain disorder Diagnosis: Secondary ICD Codes: G89.4 - Chronic pain syndrome Consultants Infectious disease (Dr Veronica Stahl) Brief History 66 year old white male with history of prior head and neck cancer (squamous cell carcinoma) treated in the past with surgery, chemotherapy, and radiation therapy (RT x 3) with recurrences who came to the ER on 03-01-17 with pain, redness and swelling of the right side of his face and neck. He has had chronic pain in his neck due to prior surgeries and radiation therapy but his pain was much greater. He had had possible fever at home but had not checked his temperature. His symptoms began about 2 days prior and had gotten worse. In the ER he was diagnosed with a cellulitis of the right face and neck and was admitted for IV antibiotic therapy. CBC/BMP: 03/05/17 0645 03/05/17 0645 Significant Findings Laboratory Tests Test 03/02/17 13:50 03/02/17 16:50 03/03/17 05:58 03/03/17 16:35 Potassium Level 3.1 MEQ/L (3.5-5.1) Red Blood Count 3.86 MIL/MM3 (4.50-5.90) Hemoglobin 12.9 GM/DL (13.0-17.0) Hematocrit 37.1 % (39.0-51.0) Neutrophils (%) (Auto) 71.3 % (16.0-70.0) Monocytes (%) (Auto) 10.6 % (0.0-8.0) Monocytes # (Auto) 1.1 TH/MM3 (0-0.9) Random Glucose 132 MG/DL (74-106) Calcium Level 7.8 MG/DL (8.5-10.1) Vancomycin Level Trough 20.5 MCG/ML (5.0-10.0) Test 03/04/17 05:49 03/05/17 06:45 Red Blood Count 3.91 MIL/MM3 (4.50-5.90) Hemoglobin 12.5 GM/DL (13.0-17.0) Hematocrit 37.5 % (39.0-51.0) Monocytes (%) (Auto) 13.4 % (0.0-8.0) 9.5 % (0.0-8.0) Monocytes # (Auto) 1.2 TH/MM3 (0-0.9) Calcium Level 8.4 MG/DL (8.5-10.1) Potassium Level 3.3 MEQ/L (3.5-5.1) 3.3 MEQ/L (3.5-5.1) Imaging Last Impressions Cervical Spine CT 03/02/17 0000 Signed Impressions: Service Date/Time: Thursday, March 02, 2017 09:22 - CONCLUSION: Normal examination. Denny Guzman MD Neck CT 03/01/17 0857 Signed Impressions: Service Date/Time: Wednesday, March 01, 2017 09:22 - CONCLUSION: 1. Post therapy changes involving the neck as detailed above. No recurrent mass or adenopathy appreciated. In the setting of evaluating for subtle changes relating to recurrence prior examinations are essential. 2. Bilateral carotid stents. Tr Galan Jr., MD Chest X-Ray 03/01/17 0823 Signed Impressions: Service Date/Time: Wednesday, March 01, 2017 08:42 - CONCLUSION: Normal examination. Clips overlie the supraclavicular region. Denny Guzman MD PE at Discharge Exam: He is alert. Patient is difficult for me to understand because of his difficulty articulating due to part of his tongue having been excised. HEENT: Pupils equal, no scleral icterus, Mouth with part of the right side of the tongue missing; he still has some slight swelling and slight redness of the right cheek area but it is continuing to improve with minimal swelling now Neck: prior neck surgery and radiation changes; he has much less discomfort of his neck when he tries to turn his head today Heart: RRR without murmur Lungs: Clear Abdomen: Soft, nontender, gastrostomy tube present Extremities: No edema, pulses present Neuro: alert, no motor or sensory deficits Hospital Course Patient was admitted and begun on IV Zosyn and Vancomycin. A consult was obtained with infectious disease (Dr Stahl). She saw him and continued the Zosyn and Vancomycin and added Fluconazole IV. He was maintained on his Fentanyl patch that he used at home for pain. He did have an episode wile in the hospital early on where he briefly went unconscious for a few seconds. He did not lose his pulse or quit breathing. He did get slightly rigid for a very brief period but was alert when he woke up. It was not certain whether this was a response to pain he was in and maybe had a vagal like episode. He was transferred to the intensive care unit and monitored and had no further episodes. He has improved with his white cell count improved to normal and he became afebrile within 24 hours. He was eventually changed to oral Augmentin and oral Fluconazole and he has been improving still. I did put him on Lisinopril because his BP was up. He was already on Amlodipine. He has some slight hypokalemia and will be continued on potassium at home. He will be discharged and I ordered labs (CBC, BMP) to be done on 03-07-17. He is instructed to followup with his PCP (Dr Abrams) in about 5 days. Pt Condition on Discharge: Stable Discharge Disposition: Discharge Home Discharge Instructions DIET: Follow Instructions for: On Tube Feeding Additional Diet Instructions: Continue his gastrostomy tube feedings with his Jevity 1.5 as usual Activities you can perform: Weight Bearing as James Follow up Referrals: PCP Follow-up - 3-[address] Abrams New Orders: BASIC METABOLIC PROF - 2-3 Days CBC WITH DIFF - 2-3 Days New Medications: Potassium Chloride ER (Potassium Chloride ER) 20 Meq Tab 20 MEQ PO TID for Electrolyte Replacement, #21 TAB 0 Refills Amoxicillin-Clavulanate (Amoxicillin-Clavulanate) 875-125 mg Tab 875 MG PO Q12HR for facial cellulitis for 14 Days, #28 TAB not for use in CrCl <30 mL/minute Fluconazole (Diflucan) 200 Mg Tab 200 MG PO DAILY for oral candidiasis for 7 Days, #7 TAB Hydrocodone/Acetaminophen (Hydrocodone-Acetamin 5-325 mg) 5 Mg-325 Mg Tablet 1 TAB PO Q6H PRN for PAIN SCALE 1 TO 10 for 7 Days, #28 TAB Lisinopril (Lisinopril) 10 Mg Tab 10 MG PO DAILY for hypertension for 30 Days, #30 TAB 1 Refill Continued Medications: Amlodipine (Amlodipine) 10 Mg Tab 10 MG PO DAILY for Blood Pressure Management, #30 TAB 0 Refills Clonazepam (Clonazepam) 0.5 Mg Tab 0.5 MG PO TID, #90 TAB 0 Refills Fentanyl Patch 72 HR (Fentanyl Patch 72 HR) 25 Mcg/Hr Patch 25 MCG T-DERMAL Q72H for Pain Management, #10 PATCH 0 Refills Mirtazapine (Mirtazapine) 30 Mg Tab 30 MG PO HS for Depression Control, #30 TAB 0 Refills Gokul Abarca MD Mar 05, 2017 08:15
[2017-03-05] MEDS: AMOXICILLIN/CLAVULANATE K 875 MG TAB PO SCH (09:34)
[2017-03-05] MEDS: FLUCONAZOLE 200 MG TAB PO SCH (09:35)
[2017-03-05] MEDS: LISINOPRIL 10 MG TAB PO SCH (09:35)
--- NOTE | 2017-03-07 14:30 | MG ---
cc: MANNY SONI MD Lab No: [id number] Date: 03/02/17 Age: Sex: M Race: DATE OF : 1950 HISTORY A 66-year-old female with history of and unresponsiveness. DESCRIPTION: Posterior rhythm demonstrates activity followed by generalized slowing, transition into drowsy state and stage I sleep and vertex waves appearing. Movement artifact, slightly reduced driving with photic stimulation. Single lead EKG showing sinus rhythm. INTERPRETATION Normal awake sleep EEG. Clinical correlation. Manny Soni MD MG/ALFREDO /9:49 PM /2:23 PM
== END 2017-03-05 09:58 | disposition home or self-care (01) | DRG 602 ==
LOC: PHED 07:56 → INTOOBSV 10:06 → PHEDA 10:06 → PH3A 11:08 → PHICU 15:26 → OBSVTOIN 03-02 09:11 → PH3B 03-05 02:40
PROVIDERS: ADMIT Family Medicine; ATTEND Family Medicine
DX: L03.211 Cellulitis of face (principal); R40.20 Unspecified coma; L03.221 Cellulitis of neck; I10 Essential (primary) hypertension; Z93.1 Gastrostomy status; F32.9 Major depressive disorder, single episode, unspecified; F41.9 Anxiety disorder, unspecified; E87.6 Hypokalemia; M54.2 Cervicalgia; G89.4 Chronic pain syndrome; R23.0 Cyanosis; Z85.89 Personal history of malignant neoplasm of other organs and systems; Z86.73 Personal history of transient ischemic attack (TIA), and cerebral infarction without residual deficits; Z87.891 Personal history of nicotine dependence; Z88.5 Allergy status to narcotic agent; Z85.810 Personal history of malignant neoplasm of tongue; Z92.21 Personal history of antineoplastic chemotherapy; Z92.3 Personal history of irradiation
CPT/HCPCS: 70491; 71010; 72125; 80048; 80053; 80202; 81001; 83605; 84132; 85025; 87040; 95819; 96365; 96366; 96375; 96376; G0378; J1170; J1450; J2310; J2405; J2543; J3370; J7040; J7050; Q9967

== ENCOUNTER 2017-12-11 22:15 | Inpatient (IN) ==
[2017-12-11] MEDS ORDERED: Piperacil/Tazo 4.5 GM Premix 4.5 GM/100 ML BAG IV.SIG ONE (22:21)
[2017-12-11] MEDS ORDERED: Vancomycin Inj 1,000 MG in Sodium Chlor 0.9% Inj 250 ML IV.SIG ONE (22:21)
[2017-12-11] MEDS ORDERED: Sod Chloride 0.9% Inj 1,000 ML IV.SIG SCH (22:45)
--- NOTE | 2017-12-11 22:48 | ED ---
HPI General Chief complaint: Respiratory Symptoms Stated complaint: Unresponsive Time Seen by Provider: 12/11/17 22:21 Source: EMS Mode of arrival: EMS Limitations: no limitations History of Present Illness HPI narrative: 67-year-old male presents to the emergency department by EMS transport from home after being found unresponsive. Patient was found by EMS to have spontaneous respirations palpable pulse and blood pressure but marked decreased level of consciousness hypotensive with large amount of tube feeding contents in the oral cavity. Patient has history of head neck cancer and takes no oral medications takes all medications and feedings through PEG tube. Patient was last seen normal approximately breakfast time on Tuesday and then family members found him unresponsive. Unknown downtime. Upon EMS arrival patient was assessed and suctioned and initial O2 saturations were 60% patient was placed on supplemental oxygen with improved ventilations and then subsequently intubated with a 7.5 endotracheal tube. Per EMS copious amounts of suctioning was performed and large amounts of tube feeding were suctioned. Patient presents now with endotracheal tube in place bilateral breath sounds to auscultation with bag valve ventilation and normotensive upon EMS presentation however initial blood pressure here mildly hypotensive with systolic pressure of 90 mmHg. Patient remains unresponsive. Family members not available. Patient with known allergies to narcotics. No other medical history is available. Related Data Home Medications Medication Instructions Recorded Confirmed amlodipine 10 mg PO DAILY 12/11/17 12/11/17 clonazepam 1 mg PO TID 12/11/17 12/11/17 fentanyl 50 mcg INTRADERMAL 2XWEEK 12/11/17 12/11/17 mirtazapine 30 mg PO DAILY 12/11/17 12/11/17 Allergies Allergy/AdvReac Type Severity Reaction Status Date / Time morphine Allergy Intermediate Confusion Verified 03/04/17 21:32 HALLICINATES hydromorphone AdvReac Intermediate Confusion Verified 12/11/17 22:23 Review of Systems ROS Unobtainable ROS Unobtainable: unobtainable due to endotracheal tube PMFSH History History Provided By: Medical Record Medical History Medical History Hypertension (Acute) Throat cancer (Acute) Tongue cancer (Acute) Family History Family History Other Diabetes Stroke Thyroid cancer Social History Social History Substance History: No History of Abuse Second Hand Smoke Exposure: Yes Smoking Status: Current every day smoker Tobacco Type: Cigarettes How Often Do You Have a Drink Containing Alcohol: Monthly or less Recent Travel in [facility] within the Last 8 Weeks: No Recent Out of Country Travel within the Last 8 Weeks: No Exam Narrative Exam Narrative: GENERAL: Well-nourished, well-developed patient. GCS 3. Airway protected with 7.5 endotracheal tube receiving and assisted ventilation and ventilatory ventilator assisted ventilation with good bilateral breath sounds to auscultation and no borborygmi SKIN: Focused skin assessment warm/dry. HEAD: Normocephalic. EYES: No scleral icterus. No injection or drainage. Pupils midline equal round minimally reactive to light NECK: Supple, trachea midline. No JVD or lymphadenopathy. CARDIOVASCULAR: Regular rate and rhythm without murmurs, gallops, or rubs. RESPIRATORY: Breath sounds equal bilaterally. No accessory muscle use. Bilateral breath sounds auscultated with ventilator assisted ventilations rhonchi noted GASTROINTESTINAL: Abdomen soft, non-tender, nondistended. MUSCULOSKELETAL: No cyanosis, or edema. BACK: Nontender without obvious deformity. No CVA tenderness. Course Consultations Consultation #1: Discussed with associate creative director, Dr. Ni will except patient to his service Initial Documented Vital Signs Respiratory Rate 17 12/11/17 22:15 Pulse Oximetry 100 12/11/17 22:15 Last Documented Vital Signs Temperature 97.8 F 12/11/17 22:23 Pulse Rate 78 12/12/17 00:26 Respiratory Rate 20 12/12/17 00:26 Blood Pressure 92/51 L 12/12/17 00:26 Pulse Oximetry 100 12/11/17 22:34 Critical Care Time Critical Care Time: Yes Total Critical Care Time: 30 Attestation: Aggregate critical care time was 30 minutes. Time to perform other separately billable procedures was not included in the critical care time. My time did not include minutes spent treating any other patients simultaneously or on activities that did not directly contribute to the patient's treatment. The services I provided to this patient were to treat and/or prevent clinically significant deterioration that could result in: Respiratory arrest, sepsis, cardiogenic shock, I provided critical care services requiring my management, as noted below: Chart data review, documentation time, medication orders and management, vital sign assessments/reviewing monitor data, ordering and reviewing lab tests, ordering and interpreting/reviewing x-rays and diagnostic studies, care of the patient and discussion of the patient with the admitting physicians. Medical Decision Making MDM Narrative Medical decision making narrative: 67-year-old male found by family with large amount of feeding tube contents in the mouth and oral airway and unresponsive; presents to the emergency department by EMS transport with EMS intervention including intubation and fluid resuscitation. Patient with known history of head and neck cancer. Family members present report patient diagnosed several years ago with head and neck cancer has been cancer free and not followed by oncology for approximately 5 years due to chronic scarring and changes associated with management of his head and neck cancer patient now has a PEG tube in uses Jevity tube feedings. Patient is independent was well all day saw him last normal around 1 and then awakened from a nap and found him unresponsive with a large amount of tube feeding in his mouth. reports patient has been treated in the past for aspiration pneumonia. /family reports patient has been well. informed the patient will be admitted to the ICU. Medical Screen Exam Complete: Yes Emergency Medical Condition: Yes Differential Diagnosis Differential Diagnosis: Aspiration pneumonia, respiratory failure, respiratory arrest, sepsis, PE, ACS, ID, arrhythmia Medical Records Medical records reviewed: Yes I reviewed the patient's medical records. Lab Data Lab results reviewed: Yes I reviewed the patient's lab results. Lab results narrative: CBC with automated differential within normal limits however lactic is quite elevated at 11; ABG pH 7.25 PCO2 45 PO2 99 bicarb 19 base excess -7 sats 95% on assist control with tidal volume of 558 of PEEP 80% FiO2 and rate 14 patient's tidal volume was increased to 600. Result diagrams: 12/11/17 23:00 12/11/17 23:00 Lab Results 12/11/17 12/11/17 12/11/17 Range/Units 23:00 23:00 23:00 WBC 9.8 (4.0-11.0) th/mm3 RBC 3.87 L (4.50-5.90) mil/mm3 Hgb 13.4 (13.0-17.0) gm/dL Hct 38.7 L (39.0-51.0) % MCV 100.1 H (80.0-100.0) fL MCH 34.7 H (27.0-34.0) pg MCHC 34.7 (32.0-36.0) % RDW 13.4 (11.6-17.2) % Plt Count 194 (150-450) th/mm3 MPV 9.3 (7.0-11.0) fL Neut % (Auto) 81.6 H (16.0-70.0) % Lymph % (Auto) 7.9 L (9.0-44.0) % [place] % (Auto) 10.2 H (0.0-8.0) % Eos % (Auto) 0.1 (0.0-4.0) % Baso % (Auto) 0.2 (0.0-2.0) % Neut # (Auto) 8.0 H (1.8-7.7) th/mm3 Lymph # (Auto) 0.8 L (1.0-4.8) th/mm3 [place] # (Auto) 1.0 H (0.0-0.9) th/mm3 Eos # (Auto) 0.0 (0.0-0.4) th/mm3 Baso # (Auto) 0.0 (0.0-0.2) th/mm3 WBC Differential . Differential Comment Auto diff final PT 10.7 (9.8-11.6) sec INR 1.1 Ratio APTT 26.8 (24.3-30.1) sec Puncture Site Patient Temperature O2 Saturation (90-100) % ABG pH (7.380-7.420) ABG pCO2 (38-42) mmHg ABG pO2 (61-120) mmHg ABG HCO3 (22-26) mmol/L ABG O2 Content (12.0-20.0) Vol % ABG Base Excess (-2-2) mmol/L ABG Methemoglobin (0-2) % Basilio Test Hemoglobin (12.0-16.0) G/DL Carboxyhemoglobin (0-4) % O2 Delivery Device Vent Setting Inspired O2 % Critical Value Sodium 141 (136-145) meq/L Potassium 3.2 L (3.5-5.1) meq/L Chloride 100 (98-107) meq/L Carbon Dioxide 22.8 (21.0-32.0) meq/L Anion Gap 18 H (5-15) meq/L BUN 23 H (7-18) mg/dL Creatinine 1.37 H (0.60-1.30) mg/dL Estimated GFR 52 L (>89) mL/min Random Glucose 92 (74-106) mg/dL Lactic Acid (0.4-2.0) mmol/L Calcium 7.4 L* (8.5-10.1) mg/dL Prot Corrected Calcium 7.6 L (8.5-10.1) mg/dL Magnesium 2.2 (1.5-2.5) mg/dL Total Bilirubin 0.2 (0.2-1.0) mg/dL AST 152 H (15-37) U/L ALT 136 H (12-78) U/L Alkaline Phosphatase 85 (45-117) U/L Total Creatine Kinase 99 (39-308) U/L Troponin I 0.04 (0.02-0.05) ng/mL Total Protein 6.8 (6.4-8.2) g/dL Albumin 3.2 L (3.4-5.0) g/dL Urine Color (Yellw/Straw) Urine Clarity (Clear) Urine pH (5.0-8.5) Ur Specific [place] (1.002-1.035) Urine Protein (Neg-Trace) mg/dL Urine Glucose (UA) (Negative) mg/dL Urine Ketones (Negative) mg/dL Urine Occult Blood (Negative) Urine Nitrate (Negative) Urine Bilirubin (Negative) Urine Urobilinogen (Less than 2) mg/dL Ur Leukocyte Esterase (Negative) Urine RBC (0-3) /hpf Urine WBC (0-5) /hpf Ur Squamous Epith Cells (0-5) /hpf Amorphous Sediment (None) /hpf Urine Bacteria (None) /hpf Hyaline Casts (0-3) /lpf Granular Casts (None) /lpf Urine Mucus (Occasional) /lpf Micro UA Comment Ur Microscopic Review Urine Culture Comments 12/11/17 12/11/17 12/11/17 Range/Units 23:00 23:00 23:25 WBC (4.0-11.0) th/mm3 RBC (4.50-5.90) mil/mm3 Hgb (13.0-17.0) gm/dL Hct (39.0-51.0) % MCV (80.0-100.0) fL MCH (27.0-34.0) pg MCHC (32.0-36.0) % RDW (11.6-17.2) % Plt Count (150-450) th/mm3 MPV (7.0-11.0) fL Neut % (Auto) (16.0-70.0) % Lymph % (Auto) (9.0-44.0) % [place] % (Auto) (0.0-8.0) % Eos % (Auto) (0.0-4.0) % Baso % (Auto) (0.0-2.0) % Neut # (Auto) (1.8-7.7) th/mm3 Lymph # (Auto) (1.0-4.8) th/mm3 [place] # (Auto) (0.0-0.9) th/mm3 Eos # (Auto) (0.0-0.4) th/mm3 Baso # (Auto) (0.0-0.2) th/mm3 WBC Differential Differential Comment PT (9.8-11.6) sec INR Ratio APTT (24.3-30.1) sec Puncture Site Right radial Patient Temperature 98.6 O2 Saturation 95 (90-100) % ABG pH 7.25 L* (7.380-7.420) ABG pCO2 46 H (38-42) mmHg ABG pO2 100 (61-120) mmHg ABG HCO3 19 L (22-26) mmol/L ABG O2 Content 17.8 (12.0-20.0) Vol % ABG Base Excess -6.8 L (-2-2) mmol/L ABG Methemoglobin 0.6 (0-2) % Basilio Test Present Hemoglobin 13.2 (12.0-16.0) G/DL Carboxyhemoglobin 1.2 (0-4) % O2 Delivery Device Ventilator Vent Setting Inspired O2 80 % Critical Value Yes Sodium (136-145) meq/L Potassium (3.5-5.1) meq/L Chloride (98-107) meq/L Carbon Dioxide (21.0-32.0) meq/L Anion Gap (5-15) meq/L BUN (7-18) mg/dL Creatinine (0.60-1.30) mg/dL Estimated GFR (>89) mL/min Random Glucose (74-106) mg/dL Lactic Acid 12.4 H* (0.4-2.0) mmol/L Calcium (8.5-10.1) mg/dL Prot Corrected Calcium (8.5-10.1) mg/dL Magnesium (1.5-2.5) mg/dL Total Bilirubin (0.2-1.0) mg/dL AST (15-37) U/L ALT (12-78) U/L Alkaline Phosphatase (45-117) U/L Total Creatine Kinase (39-308) U/L Troponin I (0.02-0.05) ng/mL Total Protein (6.4-8.2) g/dL Albumin (3.4-5.0) g/dL Urine Color Yellow (Yellw/Straw) Urine Clarity Hazy H (Clear) Urine pH 5.0 (5.0-8.5) Ur Specific [place] 1.014 (1.002-1.035) Urine Protein 100 H (Neg-Trace) mg/dL Urine Glucose (UA) Negative (Negative) mg/dL Urine Ketones Trace H (Negative) mg/dL Urine Occult Blood Negative (Negative) Urine Nitrate Negative (Negative) Urine Bilirubin Negative (Negative) Urine Urobilinogen Less than 2 (Less than 2) mg/dL Ur Leukocyte Esterase Negative (Negative) Urine RBC 2 (0-3) /hpf Urine WBC 4 (0-5) /hpf Ur Squamous Epith Cells 1 (0-5) /hpf Amorphous Sediment Rare H (None) /hpf Urine Bacteria Occasional H (None) /hpf Hyaline Casts 95 (0-3) /lpf Granular Casts 8 (None) /lpf Urine Mucus Few H (Occasional) /lpf Micro UA Comment Cath-culture ind Ur Microscopic Review Not Reportable Urine Culture Comments Cath-cult indicated Imaging Data Radiologist's impression: Chest X-Ray 12/11/17 22:21 CONCLUSION: 1. Underinflation with perihilar interstitial prominence which could be related to the underinflation or could represent pulmonary edema. No airspace consolidation is identified. 2. Endotracheal tube tip measures 2.7 cm from the rosette. ECG Data EKG Prior to Arrival: No Prior ECG tracings: not available for review Interpretation: EKG: Normal sinus rhythm rate [address] elevation injury pattern or ectopy noted Discharge Plan Discharge Disposition Patient Disposition: 30 Still Patient Discharge Condition Condition: Fair Discharge Details Diagnosis: Aspiration into airway, Aspiration pneumonia, Respiratory failure Physicians Team ED Provider: Eileen Scott Primary Care Provider: Ondina Boyer Attending Provider: Ming Ni Other Providers: Daniel Lopez Discharge Interventions Interventions: Vital Signs Last Done: 12/11/17 23:34 Status ED Status: Admitted Patient
--- NOTE | 2017-12-11 23:03 | XR ---
EXAM DATE: 12/11/2017 10:58 PM EDT AGE/SEX: 67 years / Male INDICATIONS: Infiltrate. CLINICAL DATA: This is the patient's initial encounter. Patient reports that signs and symptoms have been present for 1 day and indicates a pain score of Nonresponsive. MEDICAL/SURGICAL HISTORY: . Hypertension. Cardiovascular disease Neck and tongue cancer. . Ap pendectomy. Carotid stent. COMPARISON: No prior exams available for comparison. FINDINGS: Underinflated portable AP view of the chest demonstrates a normal-sized cardiac silhouette. Endotrach eal tube distal tip measures 2.7 cm from the rosette. Lungs are underinflated and there is perihilar i nterstitial prominence. No pleural effusion, airspace consolidation, or pneumothorax is identified. B ones and soft tissues demonstrate no acute finding. CONCLUSION: 1. Underinflation with perihilar interstitial prominence which could be related to the underinflatio n or could represent pulmonary edema. No airspace consolidation is identified. 2. Endotracheal tube tip measures 2.7 cm from the rosette. Electronically signed by: Fahad Cole MD 12/11/2017 11:02 PM EDT
[2017-12-11 23:11] LABS: Baso % (Auto) 0.2 % (0.0-2.0); Eos % (Auto) 0.1 % (0.0-4.0); Hematocrit 38.7 % (39.0-51.0); Hemoglobin 13.4 gm/dL (13.0-17.0); Lymph # (Auto) 0.8 th/mm3 (1.0-4.8); Lymph % (Auto) 7.9 % (9.0-44.0); Mean Corpuscular HGB Conc 34.7 % (32.0-36.0); Mean Corpuscular Hemoglobin 34.7 pg (27.0-34.0); Mean Corpuscular Volume 100.1 fL (80.0-100.0); Mean Platelet Volume 9.3 fL (7.0-11.0); Mono % (Auto) 10.2 % (0.0-8.0); Neut % (Auto) 81.6 % (16.0-70.0); Platelet Count 194 th/mm3 (150-450); Red Blood Count 3.87 mil/mm3 (4.50-5.90); Red Cell Distribution Width 13.4 % (11.6-17.2); White Blood Count 9.8 th/mm3 (4.0-11.0)
[2017-12-11 23:16] LABS: Amorphous Sediment,Urine Rare /hpf; Bacteria,Urine Occasional /hpf; Bilirubin,Urine Negative (Negative); Clarity,Urine Hazy (Clear); Color,Urine Yellow (Yellw/Straw); Glucose,Urine (UA) Negative (Negative); Hyaline Casts,Urine 95 /lpf (0-3); Leukocyte Esterase,Urine Negative (Negative); Mucus,Urine Few /lpf (Occasional); Nitrite,Urine Negative (Negative); Specific Gravity,Urine 1.014 (1.002-1.035); Squamous Epithelial Cell,Urine 1 /hpf (0-5)
[2017-12-11 23:22] LABS: Activated Partial Thrombo Time 26.8 sec (24.3-30.1); INR 1.1 Ratio; Prothrombin Time 10.7 sec (9.8-11.6)
[2017-12-11] MEDS ORDERED: Bisacodyl 10 MG Supp RECTAL PRN (23:31)
[2017-12-11] MEDS ORDERED: Acetaminophen 325 MG Tablet PO PRN (23:31)
[2017-12-11 23:38] LABS: ABG Base Excess -6.8 mmol/L (-2-2); ABG PCO2 46 mmHg (38-42); ABG PO2 100 mmHg (61-120)
--- NOTE | 2017-12-11 23:42 | P.HPCC ---
History of Present Illness Primary Care Physician: Ondina Boyer MD History of Present Illness: 67-year-old male with past medical history of head and neck cancer presents from home after being found unresponsive. Patient was found by EMS to have spontaneous respirations palpable pulse and blood pressure but markedly decreased level of consciousness, hypotensive with large amount of tube feeding contents in the oral cavity. Patient has history of head neck cancer and takes no oral medications takes all medications and feedings through PEG tube. Patient was last seen normal approximately at breakfast time on Tuesday and then family members found him unresponsive. Unknown downtime. Upon EMS arrival patient was assessed and suctioned and initial O2 saturations were 60% patient was placed on supplemental oxygen with improved ventilations and then subsequently intubated with a 7.5 endotracheal tube. Per EMS copious amounts of suctioning was performed and large amounts of tube feeding were suctioned. Patient presents now with endotracheal tube in place bilateral breath sounds to auscultation with bag valve ventilation and normotensive upon EMS presentation however initial blood pressure here mildly hypotensive with systolic pressure of 90 mmHg. Patient remains unresponsive. Family members not available. Patient with known allergies to narcotics. No other medical history is available. Inpatient Certification: I certify that the inpatient services were ordered in accordance with Medicare regulations governing the order. This includes certification that hospital inpatient services are reasonable and necessary and in the case of services not specified as inpatient-only under 42 CFR 419.22(n), that they are appropriately provided as inpatient services in accordance to with the 2-midnight benchmark under 43 CFR 412.3(e) Estimated Total Length of Stay (Days): 5 Plans for Post Hospital Care: Not yet determined Review of Systems unobtainable due to endotracheal tube PMFSH - History History Provided By: Medical Record - Medical History Medical History: Medical History (Last Reviewed 12/11/17 @ 22:50 by Eileen Scott MD) CAD (coronary artery disease) Depression Hypertension Throat cancer Tongue cancer - Surgical History Surgical History: Surgical History (Last Reviewed 12/11/17 @ 22:50 by Eileen Scott MD) H/O neck surgery History of appendectomy - Family History Family History: Family History (Last Reviewed 12/11/17 @ 22:50 by Eileen Scott MD) Other Diabetes Stroke Thyroid cancer - Tobacco History Second Hand Smoke Exposure: Yes Tobacco Use In Past 30 Days: Yes Smoking Status: Current every day smoker Tobacco Type: Cigarettes - Alcohol History How Often Do You Have a Drink Containing Alcohol: Monthly or less - Substance Use History Substance History: No History of Abuse - Travel History Recent Travel in the [place] Within the Last 8 Weeks: No Recent Travel Out of the Country Within the Last 8 Weeks: No - Immunization History Tetanus Immunization: >5 Years Hx Influenza Vaccine This Season: Yes Medications and Allergies Active Medications: Active Medications Acetaminophen (Tylenol) 650 mg PO Q6H PRN PRN Reason: PAIN 1-10 AND/OR FEVER >101F Al Hydroxide/Mg Hydroxide (Milk Of Magnesia Liq) 30 ml PO Q12H PRN PRN Reason: Mild Constipation Albuterol (Duoneb Neb (Prn)) 1 ampul NEB Q2HR NEB PRN PRN Reason: WHEEZING Amlodipine Besylate (Norvasc) 10 mg PO DAILY HEATHER Bisacodyl (Dulcolax Supp) 10 mg RECTAL DAILY PRN PRN Reason: SEVERE CONSITIPATION Chlorhexidine Gluconate (Peridex 0.12% Oral Kit) 15 ml OROPHARYNG BID@0800, 2000 HEATHER Chlorhexidine Gluconate (Chlorhexidine 2% Cloth) 3 pack TOPICAL DAILY@0400 HEATHER Stop: 12/17/17 03:59 Chlorhexidine Gluconate (Chlorhexidine 2% Cloth) 3 pack TOPICAL DAILY@0400 PRN PRN Reason: Extra cloth needed Stop: 12/17/17 03:59 Clonazepam (Klonopin) 1 mg PO TID HEATHER Enoxaparin Sodium (Lovenox Inj) 40 mg SQ Q24H HEATHER Famotidine (Pepcid Pf Inj) 20 mg IV.PUSH Q12HR HEATHER Sodium Chloride (Ns Inj) 1,000 mls @ 0 mls/hr IV.SIG BOLUS HEATHER Propofol (Diprivan 1000 Mg/100 Ml Inj) 1,000 mg in 100 mls @ 2.722 mls/hr IV.CONT TITRATE PRN; Protocol PRN Reason: Per Protocol Sodium Chloride (Ns Inj) 1,000 mls @ 84 mls/hr IV.CONT .[id number] HEATHER Lactulose (Lactulose Liq) 30 ml PO DAILY PRN PRN Reason: SEVERE CONSITIPATION Metoclopramide HCl (Reglan Inj) 5 mg IV.PUSH Q6HR HEATHER; Protocol Mirtazapine (Remeron) 30 mg PO DAILY [facility] Ondansetron HCl (Zofran Inj) 4 mg IV.PUSH Q6H PRN PRN Reason: NAUSEA OR VOMITING Senna/Docusate Sodium (Ami-Colace) 1 tab PO BID HEATHER Sennosides (Senokot) 17.2 mg PO Q12H PRN PRN Reason: Moderate Constipation Sodium Chloride (Ns Flush) 2 ml IV.FLUSH BID HEATHER Sodium Chloride (Ns Flush) 2 ml IV.FLUSH PRN PRN PRN Reason: FLUSH AFTER USING IV ACCESS Allergies Allergy/AdvReac Type Severity Reaction Status Date / Time morphine Allergy Intermediate Confusion Verified 03/04/17 21:32 HALLICINATES hydromorphone AdvReac Intermediate Confusion Verified 12/11/17 22:23 Home Medications Medication Instructions Recorded Confirmed Type amlodipine 10 mg PO DAILY 12/11/17 12/11/17 History clonazepam 1 mg PO TID 12/11/17 12/11/17 History fentanyl 50 mcg INTRADERMAL 2XWEEK 12/11/17 12/11/17 History mirtazapine 30 mg PO DAILY 12/11/17 12/11/17 History Results - Labs CBC & Chem 7: 12/11/17 23:00 12/11/17 23:00 Labs: Short CBC 12/11/17 Range/Units 23:00 WBC 9.8 (4.0-11.0) th/mm3 Hgb 13.4 (13.0-17.0) gm/dL Hct 38.7 L (39.0-51.0) % Plt Count 194 (150-450) th/mm3 Urine 12/11/17 Range/Units 23:00 Urine Color Yellow (Yellw/Straw) Urine Clarity Hazy H (Clear) Urine pH 5.0 (5.0-8.5) Ur Specific [place] 1.014 (1.002-1.035) Urine Protein 100 H (Neg-Trace) mg/dL Urine Glucose (UA) Negative (Negative) mg/dL - Imaging Impressions Chest X-Ray 12/11/17 22:21 CONCLUSION: 1. Underinflation with perihilar interstitial prominence which could be related to the underinflation or could represent pulmonary edema. No airspace consolidation is identified. 2. Endotracheal tube tip measures 2.7 cm from the rosette. Exam Vital signs: Vital Signs 12/11/17 22:15 12/11/17 22:23 12/11/17 22:34 Temperature 97.8 F Pulse Rate 85 79 Respiratory Rate 17 16 16 Blood Pressure 90/40 L 107/62 Pulse Oximetry 100 100 100 Intake & Output 12/11/17 12/11/17 12/12/17 06:59 18:59 06:59 Weight 90.718 kg - Constitutional moderate distress - Routine HEENT Exam Head: Present: atraumatic Eye: Present: PERRL ENT: Present: mucous membranes moist - Routine Neck Exam Absent: JVD, carotid bruit - Routine Respiratory Exam Present: patient mechanically ventilated, rhonchi. Absent: stridor, wheezes - Routine Cardiovascular Exam Present: RRR, S1, S2 - Routine Abdominal Exam Present: soft, normoactive bowel sounds Comments: PEG tube in place without signs of infection or inflammation - Routine Extremities Exam Present: normal capillary refill. Absent: cyanosis, clubbing, edema - Routine Skin Exam Present: intact. Absent: cyanosis, erythema - Routine Neurological Exam Present: moving all extremities Septic Shock Reassessment Septic shock perfusion: reassessment completed Caprini VTE Risk Assessment Caprini VTE Risk Assessment: Moderate/High Risk (score >= 2) Caprini Risk Assessment Model: Point Value = 1 Point Value = 2 Point Value = 3 Point Value = 5 Age 41-60 Minor surgery BMI > 25 kg/m2 Swollen legs Varicose veins or History of unexplained or recurrent spontaneous Oral contraceptives or hormone replacement Sepsis (< 1 month) Serious lung disease, including pneumonia (< 1 month) Abnormal pulmonary function Acute myocardial infarction Congestive heart failure (< 1 month) History of inflammatory bowel disease Medical patient at bed rest Age 61-74 Arthroscopic surgery Major open surgery (> 45 min) Laparoscopic surgery (> 45 min) Malignancy Confined to bed (> 72 hours) Immobilizing plaster cast Central venous access Age >= 75 History of VTE Family history of VTE Factor V Leiden Prothrombin [id number] Lupus anticoagulant Anticardiolipin antibodies Elevated serum homocysteine Heparin-induced thrombocytopenia Other congenital or acquired thrombophilia Stroke (< 1 month) Elective arthroplasty Hip, pelvis, or leg fracture Acute spinal cord injury (< 1 month) Prophylaxis Regimen: Total Risk Factor Score Risk Level Prophylaxis Regimen 0-1 Low Early ambulation 2 Moderate Order ONE of the following: *Sequential Compression Device (SCD) *Heparin 5000 units SQ BID 3-4 Higher Order ONE of the following medications: *Heparin 5000 units SQ TID *Enoxaparin/Lovenox 40 mg SQ daily (WT < 150 kg, CrCl > 30 mL/min) *Enoxaparin/Lovenox 30 mg SQ daily (WT < 150 kg, CrCl > 10-29 mL/min) *Enoxaparin/Lovenox 30 mg SQ BID (WT < 150 kg, CrCl > 30 mL/min) AND/OR *Sequential Compression Device (SCD) 5 or more Highest Order ONE of the following medications: *Heparin 5000 units SQ TID (Preferred with Epidurals) *Enoxaparin/Lovenox 40 mg SQ daily (WT < 150 kg, CrCl > 30 mL/min) *Enoxaparin/Lovenox 30 mg SQ daily (WT < 150 kg, CrCl > 10-29 mL/min) *Enoxaparin/Lovenox 30 mg SQ BID (WT < 150 kg, CrCl > 30 mL/min) AND *Sequential Compression Device (SCD) Assessment and Plan - Assessment and Plan Plan: Respiratory failure -Intubated for airway protection -Aspiration pneumonitis -Vent bundle -DuoNeb scheduled and as needed -No weaning until neurologically improve Altered mental status -CT head pending -Aspiration? -Neuro checks per unit protocol Hypertension -Amlodipine Anion gap metabolic acidosis -Renal failure -IV fluid hydration -Monitor urine output -Monitor electrolytes and creatinine DVT GI prophylaxis -Teds SCDs -Lovenox -Pepcid 35 minutes of critical care
[2017-12-11 23:48] LABS: Albumin 3.2 g/dL (3.4-5.0); Calcium 7.4 mg/dL (8.5-10.1); Carbon Dioxide 22.8 meq/L (21.0-32.0); Magnesium 2.2 mg/dL (1.5-2.5); Potassium 3.2 meq/L (3.5-5.1); Total Protein 6.8 g/dL (6.4-8.2); Troponin I 0.04 ng/mL (0.02-0.05)
[2017-12-12] MEDS: Sod Chloride 0.9% Inj 1,000 ML IV.CONT SCH ×2 (00:19→13:35)
[2017-12-12] MEDS: Enoxaparin Inj 40 MG/0.4 ML Syringe SQ SCH ×2 (00:19→23:05)
[2017-12-12] MEDS ORDERED: Midazolam 50 MG/50 ML Inj 50 MG/50 ML BAG IV.CONT PRN (01:18)
--- NOTE | 2017-12-12 01:50 | CT ---
EXAM DATE: 12/12/2017 1:45 AM EDT AGE/SEX: 67 years / Male INDICATIONS: Found unresponsive. CLINICAL DATA: This is the patient's initial encounter. Patient reports that signs and symptoms have been present for 1 day and indicates a pain score of Nonresponsive. MEDICAL/SURGICAL HISTORY: Cardiovascular disease. Hypertension. Carcinoma, tongue. Appendectomy. RADIATION DOSE: 43.89 CTDI (mGy) COMPARISON: No prior exams available for comparison. TECHNIQUE: CT of the head without contrast. Using automated exposure control and adjustment of the mA and/or kV according to patient size, radiation dose was kept as low as reasonably achievable to ob tain optimal diagnostic quality images. DICOM format image data is available electronically for revi ew and comparison. FINDINGS: Cerebrum: The ventricles are normal. No midline shift, mass lesion, hemorrhage or acute infarction. No extraaxial fluid collections are seen. Posterior Fossa: The cerebellum and brainstem demonstrate no acute abnormality. The 4th ventricle is midline. The cerebellopontine angle is within normal limits. Extracranial: There are secretions within the nasopharynx, likely related to the intubation. Skull: The calvaria is intact. No skull fracture. CONCLUSION: No acute intracranial abnormality is identified. . Electronically signed by: Fahad Cole MD 12/12/2017 1:49 AM EDT
--- NOTE | 2017-12-12 02:02 | CT ---
EXAM DATE: 12/12/2017 1:48 AM EDT AGE/SEX: 67 years / Male INDICATIONS: Found unresponsive. CLINICAL DATA: This is the patient's initial encounter. Patient reports that signs and symptoms have been present for 1 day and indicates a pain score of Nonresponsive. MEDICAL/SURGICAL HISTORY: Cardiovascular disease. Hypertension. Carcinoma, tongue. Appendecto my. RADIATION DOSE: 23.96 CTDI (mGy) COMPARISON: [facility], CT CERVICAL SPINE W/O CONTRAST, 03/02/2017. . TECHNIQUE: Contiguous axial images were obtained using helical multirow detector technique. The vol umetric data was post-processed with multiplanar reconstruction in oblique axial, sagittal, and coron al planes. Using automated exposure control and adjustment of the mA and/or kV according to patient s ize, radiation dose was kept as low as reasonably achievable to obtain optimal diagnostic quality drew ges. DICOM format image data is available electronically for review and comparison. FINDINGS: There is normal sagittal spinal alignment without fracture or dislocation. No anterolisthesis or retr olisthesis is present. The atlantoaxial relationship is within normal limits and no prevertebral soft tissue swelling is appreciated. No large disc herniation is visualized in the upper cervical spine. There are emphysematous changes at the lung apices with likely biapical scar. Patient is intubated an d fluid is present within the airway. CONCLUSION: No acute cervical spine abnormality is identified. Electronically signed by: Fahad oCle MD 12/12/2017 2:01 AM EDT
[2017-12-12] MEDS ORDERED: Magnesium Sulfate Inj 4 GM in Sodium Chlor 0.9% Inj 92 ML IV.SIG PRN (02:51)
[2017-12-12] MEDS ORDERED: Potassium Chlor 40 mEq Premix 40 MEQ/100 ML PIGGYBACK IV.SIG PRN ×2 (02:51)
[2017-12-12] MEDS ORDERED: Sodium Phosphate Inj 30 MMOL in Sodium Chlor 0.9% Inj 250 ML IV.SIG PRN (02:51)
[2017-12-12] MEDS ORDERED: Magnesium Oxide 400 MG Tablet PO PRN (02:51)
[2017-12-12] MEDS ORDERED: Potassium Phosphate Inj 30 MMOL in Sodium Chlor 0.9% Inj 250 ML IV.SIG PRN (02:51)
[2017-12-12] MEDS ORDERED: Potassium Phosphate 500 MG Soluble Tablet PO PRN ×2 (02:51)
[2017-12-12] MEDS ORDERED: Calcium Gluconate Inj 2 GM in Sodium Chlor 0.9% Inj 100 ML IV.SIG ONE (03:30)
[2017-12-12] MEDS: fentaNYL 10 mcg/mL Premix Drip 2,500 MCG/250 ML BAG IV.SIG PRN ×3 (03:38→23:07)
[2017-12-12] MEDS: Potassium Chlor 20 mEq Premix 20 MEQ/100 ML PIGGYBACK IV.SIG PRN ×4 (03:39→10:00)
[2017-12-12] MEDS: Sod Chloride 0.9% Inj 1,000 ML IV.SIG SCH ×3 (03:40→05:51)
[2017-12-12] MEDS ORDERED: CALCIUM CHLORIDE IV.SIG ONE (04:00)
[2017-12-12] MEDS ORDERED: SODIUM CHLOR 0.9% IV.SIG ONE (04:00)
[2017-12-12] MEDS ORDERED: Chlorhexidine Gluconate 2% 1 Pack (2 Cloths) TOPICAL PRN (04:00)
[2017-12-12] MEDS: Oral Hygiene Kit OROPHARYNG SCH ×5 (04:12→23:05)
[2017-12-12 04:46] LABS: Baso % (Auto) 0.5 % (0.0-2.0); Hemoglobin 12.8 gm/dL (13.0-17.0); Lymph # (Auto) 1.2 th/mm3 (1.0-4.8); Lymph % (Auto) 11.8 % (9.0-44.0); Mean Corpuscular HGB Conc 34.6 % (32.0-36.0); Mean Corpuscular Hemoglobin 33.8 pg (27.0-34.0); Mean Corpuscular Volume 97.9 fL (80.0-100.0); Mean Platelet Volume 10.1 fL (7.0-11.0); Mono # (Auto) 1.1 th/mm3 (0.0-0.9); Mono % (Auto) 10.6 % (0.0-8.0); Neut # (Auto) 8.1 th/mm3 (1.8-7.7); Neut % (Auto) 77.1 % (16.0-70.0); Platelet Count 208 th/mm3 (150-450); Red Blood Count 3.78 mil/mm3 (4.50-5.90); Red Cell Distribution Width 13.4 % (11.6-17.2); White Blood Count 10.5 th/mm3 (4.0-11.0)
[2017-12-12 04:55] LABS: Activated Partial Thrombo Time 25.1 sec (24.3-30.1); INR 1.1 Ratio; Prothrombin Time 10.7 sec (9.8-11.6)
[2017-12-12] MEDS: Chlorhexidine Gluconate 2% 1 Pack (2 Cloths) TOPICAL SCH (05:46)
[2017-12-12 06:55] LABS: Albumin 2.5 g/dL (3.4-5.0); Anion Gap 12 meq/L (5-15); Aspartate Aminotransferase 366 U/L (15-37); Blood Urea Nitrogen 19 mg/dL (7-18); Carbon Dioxide 22.3 meq/L (21.0-32.0); Chloride 108 meq/L (98-107); Glomerular Filtration Rate Greater Than 89 mL/min (>89); Glucose,Random 73 mg/dL (74-106); Magnesium 1.5 mg/dL (1.5-2.5); Sodium 142 meq/L (136-145)
[2017-12-12 06:57] LABS: Alanine Aminotransferase 291 U/L (12-78); Alkaline Phosphatase 62 U/L (45-117); Phosphorus 1.8 mg/dL (2.5-4.9); Total Protein 5.3 g/dL (6.4-8.2); Troponin I 0.29 ng/mL (0.02-0.05)
[2017-12-12 06:58] LABS: Potassium 4.5 meq/L (3.5-5.1)
[2017-12-12] MEDS: Mirtazapine 15 MG Tablet PO SCH (08:01)
[2017-12-12] MEDS: clonazePAM 1 MG Tablet PO SCH ×3 (08:02→17:30)
[2017-12-12] MEDS: Propofol 1000 mg/100 ml Inj 1,000 MG/100 ML BOTTLE IV.CONT PRN ×4 (08:02→23:06)
[2017-12-12] MEDS: Magnesium Sulfate Inj 2 GM in Sodium Chlor 0.9% Inj 96 ML IV.SIG PRN ×2 (08:03→16:30)
[2017-12-12] MEDS: Senna/Docusate Sodium 8.6/50 MG Tablet PO SCH ×2 (08:04→20:48)
[2017-12-12] MEDS: Chlorhexidine 0.12% Oral Kit 15 ML UDC OROPHARYNG SCH ×2 (08:04→20:49)
[2017-12-12] MEDS: Famotidine PF Inj 20 MG/2 ML Vial IV.PUSH SCH ×2 (08:04→20:48)
[2017-12-12] MEDS: amLODIPine 10 MG Tablet PO SCH (09:01)
--- NOTE | 2017-12-12 09:23 | P.CONPAL ---
Consult Service: Palliative Care Reason for Consult: a. To assist with evaluation and management of symptoms including:shortness of breath, altered mental status b. To assist medical decision maker(s) with: better understanding of current medical conditions; weighing benefits/burdens of medical treatment options; making medical treatment decisions. Primary Care Provider: Ondina Boyer MD History of Present Illness History of Present Illness: Mr. 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 Patient was brought to the emergency room by EMS on 12/11/17 after he was found unresponsive at home with copious oral secretions identified as tube feeding. When EMS arrived patient had spontaneous respirations, palpable pulse and was hypotensive with SBP in the 90s , and decreased level of consciousness. O2 saturation was 60% at scene, and he was intubated and copius secretions were suctioned. Patient is dysphagic, he only takes his medications and feedings through a PEG tube. Per ER report patient was last seen normal in the morning on 12/11 and it is not known how long he had been unresponsive. Patient was found with x3 25mcg Fentanyl patches on him. According to his he is supposed to be on Fentanyl 25mcg for 72 hrs. 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 He does not follow with an oncologist but he follows with ENT Dr. Gonzalez. ER Course: * Vital signs: Temperature 97.8F, pulse 78, respirations 20, BP 92/51, O2 saturation 100% * Chest x-ray revealed underinflation with perihilar interstitial prominence which could be related to the underinflation could represent pulmonary edema. No airspace consolidation is identified. * ABG results pH 7.25, PCO2 45, PO2 100, bicarb 19, base excess -7, O2 sats 95% on vent settings PRVC/AC14/550/IT 1.0/8/100% * Laboratory workup revealed WBC 9.8, hemoglobin 13.4, hematocrit 38.7, platelet count 194, sodium 141, potassium 3.2, BUN/creatinine 23/1.37, lactic acid 12.4, calcium 7.4, AST 152, ALT 136, alkaline phosphatase 85, total protein 6.8, albumin 3.2, troponin 0 0.04, T10 0.7, INR 1.1, APTT 26.8. * Urinalysis negative for leukocyte esterase, urine bacteria-culture pending * Blood cultures collected, results pending * Sputum culture pending * Critical care management Dr. Ni consulted. Patient admitted for further evaluation on intensive care unit. CT cervical spine on 12/12/17 revealed no acute cervical spine abnormality. Head CT on 12/12/17 revealed no acute intracranial abnormality. Laboratory workup today revealing WBC 10.5, hemoglobin 12.8, hematocrit 37.0, platelet count 208, sodium 142, potassium 4.5, BUN/creatinine 19/0.83, magnesium 1.5, AST 366, ALT of 291, troponin 0 0.29, total protein 5.3, albumin 2.5. Dietitian consulted, recommended adding Bentyl protein 1 packet 3 times daily and starting tube feeds Jevity 1.5 with goal rate of 55 mls per hour. Palliative care consulted to assist with symptom management and establishing goals of medical treatment. Patient seen and examined in his room on [facility]. Patient is intubated, sedated on mechanical ventilation. Patient currently spontaneously moving right side and left lower extremity, slightly withdraws to stimuli with LUE. Patient is currently on fentanyl infusion at 250 mcg/hr and propofol infusion at 40 mcg/kg/ min. FiO2 currently 40% with O2 saturation in the high 90s. Met with patients` spouse Reji Rivas who is patient`s Health Care Surrogate (HCS) and patient`s daughter Howard Leonardo who is patient`s alternate HCS. Patient`s mother later joined in. Patient has a living will with standard verbiage. Obtained psychosocial, past medical history and events leading to this hospitalization. Patient's states that patient went through a lot when he had squamous cell cancer of the head and neck which was initially diagnosed in 1993. She mentions that the patient is also stated that if he has a terminal illness, or ends up with a chronic illness that requires him to be on life support for an indefinite time, he would not want to live like that. She also mentioned that at this time she is hopeful that patient gets medically extubated otherwise she knows he would never want to have a tracheostomy. Patient has been independent despite having a history of squamous cell cancer of the head and neck and undergoing extensive surgery, chemotherapy and radiation. Addressed CODE STATUS, discussed CPR complications, limitations and benefits. Patient's at this point is undecided of what she would want. She states that they have never discussed this with patient. Explained to her that patient is currently a full code and explained in detail what it entails. Patient's verbalized understanding. Palliative care contact information provided. Case discussed with bedside RN Federica and Dr. Keyes. 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 He has been cancer free since 2005. Initial surgery was done in [place] but most of the surgeries and treatment were done in [place] where patient resided. Patient has not followed with oncology for the approximately 5 years. Due to chronic scarring secondary to head and neck cancer, patient had a gastrostomy tube placed in 2003 now has a PEG tube for his feedings. Patient is independent of all his ADLs. Patient's last hospitalization was in February, for cellulitis of neck and face. Patient is able to verbalize his needs. Review of Systems Constitutional: Denies excessive sweating, Denies lack of energy, Denies weakness Eyes: Denies double vision Ears, Nose, Mouth, and Throat: Reports difficulty swallowing, Reports other ( history on head and neck cancer. ), Denies abnormal hearing, Denies hearing loss , Denies sore throat Cardiovascular: Denies chest pain, Denies rapid, pounding, or irregular heartbeat, Denies shortness of breath, Denies shortness of breath with activity Respiratory: Reports other, Denies cough, Denies shortness of breath (copious thick oral secretions) Gastrointestinal: Reports difficulty swallowing, Denies abdominal pain, Denies constipation, Denies loose stools, Denies nausea Genitourinary: Denies painful urination, Denies urinary incontinence Musculoskeletal: Reports neck pain (hx of sx to neck), Denies back pain Skin/Breast: Denies unusual bruising Neurologic: Denies abnormal movements, Denies abnormal speech, Denies confusion , Denies frequent falls Psychiatric: Denies anxiety, Denies confusion, Denies memory loss Endocrine: Denies rapid, pounding, or irregular heartbeat Hematologic/Lymphatic: Reports easy bruising PMFSH - History History Provided By: Medical Record - Medical History Medical History: Medical History (Last Updated 12/12/17 @ 09:57 by Virgil Moreno) CAD (coronary artery disease) Depression History of common carotid artery stent placement History of gastrostomy tube placement Hypertension Throat cancer Tongue cancer - Surgical History Surgical History: Surgical History (Last Updated 12/12/17 @ 09:57 by Virgil Moreno) History of appendectomy History of radical neck dissection Hx of tonsillectomy S/P partial glossectomy Status post dissection of neck - Family History Family History: Family History (Last Updated 12/12/17 @ 10:01 by Virgil Moreno) Father Diabetes Stroke Mother Thyroid cancer Leukemia - Tobacco History Second Hand Smoke Exposure: Yes Tobacco Use In Past 30 Days: Yes Smoking Status: Current every day smoker Tobacco Type: Cigarettes - Alcohol History How Often Do You Have a Drink Containing Alcohol: Monthly or less - Substance Use History Substance History: No History of Abuse - Travel History Recent Travel in the [facility] Within the Last 8 Weeks: No Recent Travel Out of the Country Within the Last 8 Weeks: No - Immunization History Tetanus Immunization: >5 Years Hx Influenza Vaccine This Season: Yes Medications and Allergies Active Medications: Active Medications Acetaminophen (Tylenol) 650 mg PO Q6H PRN PRN Reason: PAIN 1-10 AND/OR FEVER >101F Al Hydroxide/Mg Hydroxide (Milk Of Magncas Liq) 30 ml PO Q12H PRN PRN Reason: Mild Constipation Albuterol (Duoneb Neb (Prn)) 1 ampul NEB Q2HR NEB PRN PRN Reason: WHEEZING Amlodipine Besylate (Norvasc) 10 mg PO DAILY [facility] Last Admin: 12/12/17 09:01 Dose: Not Given Bisacodyl (Dulcolax Supp) 10 mg RECTAL DAILY PRN PRN Reason: SEVERE CONSITIPATION Chlorhexidine Gluconate (Peridex 0.12% Oral Kit) 15 ml OROPHARYNG BID@0800, 2000 [facility] Last Admin: 12/12/17 08:04 Dose: 15 ml Chlorhexidine Gluconate (Chlorhexidine 2% Cloth) 3 pack TOPICAL DAILY@0400 [facility] Stop: 12/17/17 03:59 Last Admin: 12/12/17 05:46 Dose: 3 pack Chlorhexidine Gluconate (Chlorhexidine 2% Cloth) 3 pack TOPICAL DAILY@0400 PRN PRN Reason: Extra cloth needed Stop: 12/17/17 03:59 Clonazepam (Klonopin) 1 mg PO TID [facility] Last Admin: 12/12/17 08:02 Dose: 1 mg Enoxaparin Sodium (Lovenox Inj) 40 mg SQ Q24H [facility] Last Admin: 12/12/17 00:19 Dose: 40 mg Famotidine (Pepcid Pf Inj) 20 mg IV.PUSH Q12HR [facility] Last Admin: 12/12/17 08:04 Dose: 20 mg Sodium Chloride (Ns Inj) 1,000 mls @ 0 mls/hr IV.SIG BOLUS [facility] Propofol (Diprivan 1000 Mg/100 Ml Inj) 1,000 mg in 100 mls @ 2.722 mls/hr IV.CONT TITRATE PRN; Protocol PRN Reason: Per Protocol Last Admin: 12/12/17 08:02 Dose: 50 mcg/kg/min, 27.22 mls/hr Sodium Chloride (Ns Inj) 1,000 mls @ 84 mls/hr IV.CONT .[id number] [facility] Last Admin: 12/12/17 00:19 Dose: 84 mls/hr Fentanyl (Fentanyl 10 Mcg/Ml Premix Drip) 2,500 mcg in 250 mls @ 5 mls/hr IV.SIG TITRATE PRN; Protocol PRN Reason: Per Protocol Last Admin: 12/12/17 03:38 Dose: 150 mcg/hr, 15 mls/hr Midazolam HCl (Versed Inj) 50 mg in 50 mls @ 2 mls/hr IV.CONT TITRATE PRN; Protocol PRN Reason: Per Protocol Last Admin: 12/12/17 03:39 Dose: 5 mg/hr, 5 mls/hr Sodium Chloride (Ns Inj) 1,000 mls @ 0 mls/hr IV.SIG BOLUS [facility] Stop: 12/14/17 02:51 Last Infusion: 12/12/17 06:51 Dose: Infused Magnesium Sulfate Inj 4 gm/ (Sodium Chloride) 100 mls @ 50 mls/hr IV.SIG UNSCH PRN PRN Reason: For Magnesium 0.9 - 1.1 mg/dL Magnesium Sulfate Inj 2 gm/ (Sodium Chloride) 100 mls @ 50 mls/hr IV.SIG UNSCH PRN PRN Reason: For Magnesium 1.2 - 1.6 mg/dL Last Admin: 12/12/17 08:03 Dose: 50 mls/hr Potassium Chloride (Kcl 40 Meq Premix Inj) 40 meq in 100 mls @ 25 mls/hr IV.SIG Q2H PRN PRN Reason: For Potassium 2.8 - 3.2 mEq/L Potassium Chloride (Kcl 20 Meq Premix Inj) 20 meq in 100 mls @ 50 mls/hr IV.SIG Q2H PRN PRN Reason: For Potassium 3.3 - 3.5 mEq/L Potassium Chloride (Kcl 20 Meq Premix Inj) 20 meq in 100 mls @ 50 mls/hr IV.SIG Q2H PRN PRN Reason: For Potassium 2.8 - 3.2 mEq/L Last Admin: 12/12/17 08:00 Dose: 50 mls/hr Potassium Phosphate 30 mmol/ (Sodium Chloride) 260 mls @ 42 mls/hr IV.SIG UNSCH PRN PRN Reason: SEE LABEL COMMENTS Sodium Phosphate 30 mmol/ (Sodium Chloride) 260 mls @ 42 mls/hr IV.SIG UNSCH PRN PRN Reason: For Phosphorus < 2.5 mg/dL Last Admin: 12/12/17 08:03 Dose: 42 mls/hr Potassium Chloride (Kcl 40 Meq Premix Inj) 40 meq in 100 mls @ 25 mls/hr IV.SIG UNSCH PRN PRN Reason: For Potassium 3.3 - 3.5 mEq/L Lactulose (Lactulose Liq) 30 ml PO DAILY PRN PRN Reason: SEVERE CONSITIPATION Magnesium Oxide (Mag-Ox) 800 mg PO UNSCH PRN PRN Reason: For Magnesium 1.2 - 1.6 mg/dL Metoclopramide HCl (Reglan Inj) 5 mg IV.PUSH Q6HR [facility]; Protocol Last Admin: 12/12/17 05:45 Dose: 5 mg Mirtazapine (Remeron) 30 mg PO DAILY [facility] Last Admin: 12/12/17 08:01 Dose: 30 mg Ondansetron HCl (Zofran Inj) 4 mg IV.PUSH Q6H PRN PRN Reason: NAUSEA OR VOMITING Potassium Bicarb/Potassium Chloride (K-Lyte Cl Eff) 50 meq PO UNSCH PRN PRN Reason: For Potassium 3.3 - 3.5 mEq/L Potassium Phosphate (K-Phos Original) 2,000 mg PO Q4H PRN PRN Reason: Phosphorus Less Than 2.5 mg/dL Potassium Phosphate (K-Phos Original) 2,000 mg PO UNSCH PRN PRN Reason: SEE LABEL COMMENTS Senna/Docusate Sodium (Ami-Colace) 1 tab PO BID [facility] Last Admin: 12/12/17 08:04 Dose: Not Given Sennosides (Senokot) 17.2 mg PO Q12H PRN PRN Reason: Moderate Constipation Sodium Chloride (Ns Flush) 2 ml IV.FLUSH BID [facility] Last Admin: 12/12/17 09:02 Dose: 2 ml Sodium Chloride (Ns Flush) 2 ml IV.FLUSH PRN PRN PRN Reason: FLUSH AFTER USING IV ACCESS Allergies Allergy/AdvReac Type Severity Reaction Status Date / Time morphine Allergy Intermediate Confusion Verified 03/04/17 21:32 HALLICINATES hydromorphone AdvReac Intermediate Confusion Verified 12/11/17 22:23 Home Medications Medication Instructions Recorded Confirmed Type amlodipine 10 mg PO DAILY 12/11/17 12/11/17 History clonazepam 1 mg PO TID 12/11/17 12/11/17 History fentanyl 50 mcg INTRADERMAL 2XWEEK 12/11/17 12/11/17 History mirtazapine 30 mg PO DAILY 12/11/17 12/11/17 History Advance Directives Advance Directives Date on File: 06/18/13 Living Will: Yes Healthcare Surrogate: Yes (Reji Rivas (spouse)) Health Care Surrogate Name and Number: Reji Rivas [phone] Alt: Howard Leonardo [phone] Power of Kennel Helper: No Today's verbally stated goals: Patient in intubated and sedated Family/friends goals: Hopeful that patient gets better and gets medically extubated. Ethical and Legal Issues: None identified at this time Physical Exam Vital Signs: Vital Signs - 24 hr 12/11/17 22:15 12/11/17 22:23 12/11/17 22:34 Temperature 97.8 F Pulse Rate 85 79 Respiratory Rate 17 16 16 Blood Pressure 90/40 L 107/62 Pulse Oximetry 100 100 100 12/11/17 23:34 12/12/17 00:26 12/12/17 01:41 Temperature Pulse Rate 76 78 Respiratory Rate 20 20 18 Blood Pressure 96/55 L 92/51 L Pulse Oximetry 100 12/12/17 02:00 12/12/17 04:00 12/12/17 04:34 Temperature 98.8 F 98.9 F Pulse Rate 97 H 92 H Respiratory Rate 14 24 19 Blood Pressure 96/53 L 99/56 L Pulse Oximetry 100 100 100 12/12/17 07:45 12/12/17 08:00 Temperature 98 F Pulse Rate 104 H Respiratory Rate 18 18 Blood Pressure 137/70 Pulse Oximetry 100 100 I&O: Intake & Output 12/10/17 12/11/17 12/12/17 12/13/17 06:59 06:59 06:59 06:59 Intake Total 3206.82 / 3206.82 100 / 100 Output Total 1650 / 1650 Balance 1556.82 / 1556.82 100 / 100 Weight 82.9 kg Physical Exam: CONSTITUTIONAL/GENERAL: This is an adequately nourished patient, intubated and sedated TUBES/LINES/DRAINS:PIV, ETT, PEG tube, PIV. Salas catheter, SCDs, BUE soft restraints SKIN: No jaundice, rashes, or lesions. Ecchymoses on upper extremities. No wounds seen anteriorly. Skin temperature appropriate. Not diaphoretic. HEAD: Atraumatic. Normocephalic. EYES: Pupils equal and round and reactive. Extraocular motions intact. No scleral icterus. No injection or drainage. Fundi not examined. ENT: Hearing grossly normal. Nose without bleeding or purulent drainage. Moist oral mucosa NECK: Trachea midline. Supple, nontender. CARDIOVASCULAR: Regular rate and rhythm without murmurs, gallops, or rubs. No JVD. Peripheral pulses symmetric. RESPIRATORY/CHEST: Symmetric, unlabored respirations. Clear to auscultation. Breath sounds equal bilaterally. No wheezes, rales, or rhonchi. GASTROINTESTINAL: Abdomen soft, non-tender, nondistended. No guarding. Bowel sounds present. GENITOURINARY: Without palpable bladder distension. Salas catheter in place. MUSCULOSKELETAL: Extremities without clubbing, cyanosis, or edema. No joint tenderness or effusion noted. No calf tenderness. No mottling or clubbing. NEUROLOGICAL: Intubated, sedated on mechanical ventilation.Spontaneously moving RUE, RLE and LLE, Slight withdrawal with LUE PSYCHIATRIC: Unable to assess. Currently calm. Diagnostic Tests Laboratory: Laboratory Results - last 72 hr 12/11/17 12/11/17 12/11/17 23:00 23:00 23:00 WBC 9.8 RBC 3.87 L Hgb 13.4 Hct 38.7 L MCV 100.1 H MCH 34.7 H MCHC 34.7 RDW 13.4 Plt Count 194 MPV 9.3 Neut % (Auto) 81.6 H Lymph % (Auto) 7.9 L [place] % (Auto) 10.2 H Eos % (Auto) 0.1 Baso % (Auto) 0.2 Neut # (Auto) 8.0 H Lymph # (Auto) 0.8 L [place] # (Auto) 1.0 H Eos # (Auto) 0.0 Baso # (Auto) 0.0 WBC Differential . Differential Comment Auto diff final PT 10.7 INR 1.1 APTT 26.8 Puncture Site Patient Temperature O2 Saturation ABG pH ABG pCO2 ABG pO2 ABG HCO3 ABG O2 Content ABG Base Excess ABG Methemoglobin Basilio Test Hemoglobin Carboxyhemoglobin O2 Delivery Device Vent Setting Inspired O2 Critical Value Sodium 141 Potassium 3.2 L Chloride 100 Carbon Dioxide 22.8 Anion Gap 18 H BUN 23 H Creatinine 1.37 H Estimated GFR 52 L Random Glucose 92 Lactic Acid Calcium 7.4 L* Prot Corrected Calcium 7.6 L Phosphorus Magnesium 2.2 Total Bilirubin 0.2 AST 152 H ALT 136 H Alkaline Phosphatase 85 Total Creatine Kinase 99 Troponin I 0.04 Total Protein 6.8 Albumin 3.2 L Urine Color Urine Clarity Urine pH Ur Specific [place] Urine Protein Urine Glucose (UA) Urine Ketones Urine Occult Blood Urine Nitrate Urine Bilirubin Urine Urobilinogen Ur Leukocyte Esterase Urine RBC Urine WBC Ur Squamous Epith Cells Amorphous Sediment Urine Bacteria Hyaline Casts Granular Casts Urine Mucus Micro UA Comment Ur Microscopic Review Urine Culture Comments Nasal Screen MRSA (PCR) 12/11/17 12/11/17 12/11/17 23:00 23:00 23:25 WBC RBC Hgb Hct MCV MCH MCHC RDW Plt Count MPV Neut % (Auto) Lymph % (Auto) [place] % (Auto) Eos % (Auto) Baso % (Auto) Neut # (Auto) Lymph # (Auto) [place] # (Auto) Eos # (Auto) Baso # (Auto) WBC Differential Differential Comment PT INR APTT Puncture Site Right radial Patient Temperature 98.6 O2 Saturation 95 ABG pH 7.25 L* ABG pCO2 46 H ABG pO2 100 ABG HCO3 19 L ABG O2 Content 17.8 ABG Base Excess -6.8 L ABG Methemoglobin 0.6 Basilio Test Present Hemoglobin 13.2 Carboxyhemoglobin 1.2 O2 Delivery Device Ventilator Vent Setting Inspired O2 80 Critical Value Yes Sodium Potassium Chloride Carbon Dioxide Anion Gap BUN Creatinine Estimated GFR Random Glucose Lactic Acid 12.4 H* Calcium Prot Corrected Calcium Phosphorus Magnesium Total Bilirubin AST ALT Alkaline Phosphatase Total Creatine Kinase Troponin I Total Protein Albumin Urine Color Yellow Urine Clarity Hazy H Urine pH 5.0 Ur Specific [place] 1.014 Urine Protein 100 H Urine Glucose (UA) Negative Urine Ketones Trace H Urine Occult Blood Negative Urine Nitrate Negative Urine Bilirubin Negative Urine Urobilinogen Less than 2 Ur Leukocyte Esterase Negative Urine RBC 2 Urine WBC 4 Ur Squamous Epith Cells 1 Amorphous Sediment Rare H Urine Bacteria Occasional H Hyaline Casts 95 Granular Casts 8 Urine Mucus Few H Micro UA Comment Cath-culture ind Ur Microscopic Review Not Reportable Urine Culture Comments Cath-cult indicated Nasal Screen MRSA (PCR) 12/12/17 12/12/17 12/12/17 02:00 04:22 04:22 WBC 10.5 RBC 3.78 L Hgb 12.8 L Hct 37.0 L MCV 97.9 MCH 33.8 MCHC 34.6 RDW 13.4 Plt Count 208 MPV 10.1 Neut % (Auto) 77.1 H Lymph % (Auto) 11.8 [place] % (Auto) 10.6 H Eos % (Auto) 0.0 Baso % (Auto) 0.5 Neut # (Auto) 8.1 H Lymph # (Auto) 1.2 [place] # (Auto) 1.1 H Eos # (Auto) 0.0 Baso # (Auto) 0.0 WBC Differential . Differential Comment Auto diff final PT 10.7 INR 1.1 APTT 25.1 Puncture Site Patient Temperature O2 Saturation ABG pH ABG pCO2 ABG pO2 ABG HCO3 ABG O2 Content ABG Base Excess ABG Methemoglobin Basilio Test Hemoglobin Carboxyhemoglobin O2 Delivery Device Vent Setting Inspired O2 Critical Value Sodium Potassium Chloride Carbon Dioxide Anion Gap BUN Creatinine Estimated GFR Random Glucose Lactic Acid Calcium Prot Corrected Calcium Phosphorus Magnesium Total Bilirubin AST ALT Alkaline Phosphatase Total Creatine Kinase Troponin I Total Protein Albumin Urine Color Urine Clarity Urine pH Ur Specific [place] Urine Protein Urine Glucose (UA) Urine Ketones Urine Occult Blood Urine Nitrate Urine Bilirubin Urine Urobilinogen Ur Leukocyte Esterase Urine RBC Urine WBC Ur Squamous Epith Cells Amorphous Sediment Urine Bacteria Hyaline Casts Granular Casts Urine Mucus Micro UA Comment Ur Microscopic Review Urine Culture Comments Nasal Screen MRSA (PCR) Mrsa detected 12/12/17 12/12/17 04:22 06:00 WBC RBC Hgb Hct MCV MCH MCHC RDW Plt Count MPV Neut % (Auto) Lymph % (Auto) [place] % (Auto) Eos % (Auto) Baso % (Auto) Neut # (Auto) Lymph # (Auto) [place] # (Auto) Eos # (Auto) Baso # (Auto) WBC Differential Differential Comment PT INR APTT Puncture Site Patient Temperature O2 Saturation ABG pH ABG pCO2 ABG pO2 ABG HCO3 ABG O2 Content ABG Base Excess ABG Methemoglobin Basilio Test Hemoglobin Carboxyhemoglobin O2 Delivery Device Vent Setting Inspired O2 Critical Value Sodium 142 Potassium 4.5 D Chloride 108 H D Carbon Dioxide 22.3 Anion Gap 12 BUN 19 H Creatinine 0.83 Estimated GFR Greater than 89 Random Glucose 73 L Lactic Acid 6.5 H* Calcium 7.0 L* Prot Corrected Calcium 7.9 L Phosphorus 1.8 L Magnesium 1.5 D Total Bilirubin 0.4 AST 366 H ALT 291 H Alkaline Phosphatase 62 Total Creatine Kinase Troponin I 0.29 H Total Protein 5.3 L D Albumin 2.5 L D Urine Color Urine Clarity Urine pH Ur Specific [place] Urine Protein Urine Glucose (UA) Urine Ketones Urine Occult Blood Urine Nitrate Urine Bilirubin Urine Urobilinogen Ur Leukocyte Esterase Urine RBC Urine WBC Ur Squamous Epith Cells Amorphous Sediment Urine Bacteria Hyaline Casts Granular Casts Urine Mucus Micro UA Comment Ur Microscopic Review Urine Culture Comments Nasal Screen MRSA (PCR) Result Diagrams: 12/12/17 04:22 12/12/17 06:00 Microbiology: Microbiology 12/11/17 00:00 Gram Stain - Final Sputum - Endotracheal Imaging: Chest X-Ray 12/11/17 22:21 CONCLUSION: 1. Underinflation with perihilar interstitial prominence which could be related to the underinflation or could represent pulmonary edema. No airspace consolidation is identified. 2. Endotracheal tube tip measures 2.7 cm from the rosette. Cervical Spine CT 12/12/17 00:00 CONCLUSION: No acute cervical spine abnormality is identified. Head CT 12/12/17 00:00 CONCLUSION: No acute intracranial abnormality is identified. . Procedures: 12/11/2017-Intubation- in the field Patient/Family Conference Family Conference Location: Bedside (on [facility]) Issues Discussed: * Palliative care role, purpose, approach * Additional medical, psychosocial, and spiritual history * Patients general health, functional status, and cognitive changes in the months leading up to the current hospitalization * Patient/family understanding of the current medical problems * Patient/family understanding of prognosis * Patients goals of care as best understood from advance directives and/or conversations and/or values * Current medical treatment options and benefits/burdens of those options * Likely scenarios comparing ongoing aggressive care with a transition to comfort measures only * Questions answered to the best of my ability * Palliative care contact information provided Assessment and Plan - Disease Oriented Problem List (1) Acute respiratory failure (2) Hypertension (3) Depression (4) Coronary artery disease (5) History of head and neck cancer - Symptom Scale (1) Altered mental status 0-10 Scale: Unable to quantify (2) Shortness of breath 0-10 Scale: Unable to quantify (3) Pain 0-10 Scale: Unable to quantify (History of neck surgery from neck cancer.) Pertinent Non-Medical Issues: Psychosocial: Patient was born in [place], [place]. He moved to [place] where he lived for approximately 20 years and then moved to [place] with [facility] for another approximate 20 years. Patient recently moved to [place] 5 years ago. Patient is been to his current for 48 years. They have 2 adult daughters, 8 grandchildren and great-grandchildren. 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 Spiritual: No tenriism affiliation. Legal: Patient has completed healthcare surrogate and living will. (Spouse and daughter provided with copies from last hospital hospitalization) Ethical issues impacting care: None identified at this time. Important Contacts: Spouse- Evelyn Mendoza S- [phone] Daughter- Malissa Lockhart- [phone] Prognosis: Mr. 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 Patient was brought to the emergency room by EMS on was found unresponsive at home with copious oral secretions identified as tube feeding. When EMS arrived patient was found to have spontaneous respirations, palpable pulse and was hypotensive with SBP in the 90s, and decreased level of consciousness. Patient`s O2 saturation was 60% at scene, was intubated and suctioned. Clinical course complicated with acute respiratory failure. 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 Code Status: Full Code Plan: PLAN: Legal decision maker: Patient is currently intubated, sedated on mechanical ventilation. It is unknown at this time with the patient will be able to regain capacity. Patient's healthcare surrogate is his Reji Rivas and his alternate healthcare surrogate is his daughter Howard Leonardo. Goals: Aggressive. Family is hopeful at this time that patient will recover and be able to be medically extubated. Code status was addressed and family at this point wants patient to be a full code though patient`s stated that if patient would require tracheostomy placement, she most likely will not proceed with that. CODE STATUS: Full Code SYMPTOMS: * Shortness of breath: Patient most likely aspirated from tube feedings and required intubation. FIO2 currently 40% with O2 saturation in the high 90s. Patient is currently on antibiotics and duo nebs. * Pain: Patient has history of head and neck cancer and extensive surgery to his neck. Patient c/o neck and left shoulder pain at home and is on a fentanyl patch 25 mcg every 72 hours at home. Patient currently is on fentanyl infusion 250 mcg/h. no signs of pain. Continue monitoring for symptoms of pain. * Altered mental status: Patient was found with altered mentation at home and unresponsive. Head CT negative for any acute process. Currently spontaneously moving right side and LLE. Did not follow simple commands but is sedated at time of examination. Palliative care will continue to follow the patient during hospital course as condition evolves, to assist patient/decision-maker with understanding of their medical conditions, weighing benefits/burdens of treatment options, for clarification of goals of treatment. Additionally will assist with any symptoms of palliative concern Appreciation Thank you for the opportunity to participate in the care of Simeon Robert Mendoza JR. Attestation Attestation: To help prompt me to consider important information that might be impacting today's encounter and assessment, information from prior notes written by myself or my colleagues may have been "brought forward" into today's note. My signature on this note, however, is an attestation that I personally performed the exam, history, and/or decision-making noted today, and, unless otherwise indicated, the interactions with patient, family, and staff as well as the review of records all occurred today. I also attest that the listed assessment and stated plan reflect my best clinical judgment today based on the combination of historical information, prior notes, and today's exam/ interactions. When time spent is documented, it refers only to time spent today by the signer, or if indicated, combined time spent today by collaborating physician/nurse practitioner.
--- NOTE | 2017-12-12 09:31 | P.DIET ---
Nutritional Evaluation Type of nutrition evaluation: initial Nutrition consult regarding: Tube Feeding Objective - Diagnosis Respiratory Failure, Aspiration - Objective [place] body weight: 76 kg % IBW: 110 Body Weight Used for Calculations: Actual (82.9) Energy Needs - Lower Range (kCal/kg): 25 Energy Needs - Upper Range (kCal/kg): 30 Lower Limit kCal/kg (kCals): 2,073 Upper Limit kCal/kg (kCals): 2,487 Lower Limit Protein Factor (Grams per Kg): 1.2 Upper Limit Protein Factor (Grams per Kg): 1.5 Lower Protein Needs (Protein): 99 Upper Protein Needs (Protein): 124 Dietitian Reviewed in Medical Record: Curent medications, Intake & Output, Labs , Medical history, Tube feeding Diet Order: TF Objective Comments: PMH: CAD, HTN, Throat/Tongue Cancer, Depression, PEG Tube Meds include: Fentanyl, Versed, Propofol, Lactulose, Reglan Remeron Labs include: Lactic Acid 6.5, Ca 7.0, Cor Ca 7.9, Phosphorus 1.8, elevated LFT' s Assessment Assessment: Pt at nutritional risk r/t need for a TF for nutrition support. Pt intubated/ sedated. Currently, propofol is running at 27.22ml/hr which provides an additional 719kcals/24 hrs. Pt with PEG tube, hx throat/tongue cancer. Jevity 1.5 with goal rate 55 ml/hr per MD. To best meet pt's nutritional needs, recommend adding Beneprotein 1 pkt TID. Together this will provide 2055kcals, 102gms protein and 1003mls free water. Will monitor TF tolerance, clinical course. Recommendations: TF Jevity 1.5 with goal rate 55 ml/hr Beneprotein 1 pkt TID Dietitian to Monitor: Lab values, Intake & Output, Tube feeding tolerance, Weight change, Medical course
[2017-12-12] MEDS ORDERED: Magnesium Sulfate Inj 4 GM in Dextrose 5% in Water Inj 100 ML IV.SIG ONE ×2 (11:22)
[2017-12-12] MEDS ORDERED: Vancomycin Consult Pharmacy OTHER PRN (11:47)
[2017-12-12] MEDS ORDERED: Dextrose 50% in Water 50 ML Vial IV.PUSH PRN (11:48)
--- NOTE | 2017-12-12 11:49 | P.PNCC ---
Subjective Subjective Remarks/Hospital Course: 67-year-old male with past medical history of head and neck cancer presents from home after being found unresponsive. Patient was found by EMS to have spontaneous respirations palpable pulse and blood pressure but markedly decreased level of consciousness, hypotensive with large amount of tube feeding contents in the oral cavity. Patient has history of head neck cancer and takes no oral medications takes all medications and feedings through PEG tube. Patient was last seen normal approximately at breakfast time on Tuesday and then family members found him unresponsive. Unknown downtime. Upon EMS arrival patient was assessed and suctioned and initial O2 saturations were 60% patient was placed on supplemental oxygen with improved ventilations and then subsequently intubated with a 7.5 endotracheal tube. Per EMS copious amounts of suctioning was performed and large amounts of tube feeding were suctioned. Patient presents now with endotracheal tube in place bilateral breath sounds to auscultation with bag valve ventilation and normotensive upon EMS presentation however initial blood pressure here mildly hypotensive with systolic pressure of 90 mmHg. Patient remains unresponsive. Family members not available. Patient with known allergies to narcotics. No other medical history is available. Subjective 12/12: Afebrile. Currently on propofol and fentanyl drips. Not really moving his left upper lower extremity. CT brain with CT angiogram brain ordered. Cannot do MRI due to retained metal metal in eye according to . Objective Vital Signs / I&O: Vital Signs 12/11/17 22:15 12/11/17 22:23 12/11/17 22:34 Temperature 97.8 F Pulse Rate 85 79 Respiratory Rate 17 16 16 Blood Pressure 90/40 L 107/62 Pulse Oximetry 100 100 100 12/11/17 23:34 12/12/17 00:26 12/12/17 01:41 Temperature Pulse Rate 76 78 Respiratory Rate 20 20 18 Blood Pressure 96/55 L 92/51 L Pulse Oximetry 100 12/12/17 02:00 12/12/17 04:00 12/12/17 04:34 Temperature 98.8 F 98.9 F Pulse Rate 97 H 92 H Respiratory Rate 14 24 19 Blood Pressure 96/53 L 99/56 L Pulse Oximetry 100 100 100 12/12/17 07:45 12/12/17 08:00 12/12/17 10:00 Temperature 98 F Pulse Rate 104 H 82 Respiratory Rate 18 18 Blood Pressure 137/70 Pulse Oximetry 100 100 12/12/17 11:44 Temperature Pulse Rate Respiratory Rate 16 Blood Pressure Pulse Oximetry 98 Intake & Output 12/11/17 12/12/17 12/12/17 18:59 06:59 18:59 Intake Total 3206.82 / 3206.82 300 / 300 Output Total 1650 / 1650 Balance 1556.82 / 1556.82 300 / 300 Weight 82.9 kg Intake: IV 3206.82 / 3206.82 300 / 300 Calcium Chloride Inj 0.682 GM 106.82 / 106.82 In NS Inj 100 ML @ 120 mls/hr IV.SIG ONCE ONE Rx#:[id number] Magnesium Sulfate Inj 2 GM In 100 / 100 NS Inj 96 ML @ 50 mls/hr IV.SIG UNSCH PRN Rx#:[id number] KCl 20 mEq Premix Inj 20 meq In 100 / 100 200 / 200 100 ml @ 50 mls/hr IV.SIG Q2H PRN Rx#:[id number] NS Inj 1,000 ML @ Wide Open IV. 3000 / 3000 SIG BOLUS HEATHER Rx#:[id number] Output: Urine Amount (Catheter) 1350 / 1350 Indwelling Urethral Catheter 1350 / 1350 Gastric Drainage 300 / 300 Gastrostomy Tube (PEG) 300 / 300 Other: Weight On Admission 82.9 kg Result Diagrams: 12/12/17 04:22 12/12/17 06:00 Other Results: Microbiology 12/11/17 22:55 Blood - Peripheral Aerobic Blood Culture - Preliminary No growth in 1 day 12/11/17 22:55 Blood - Peripheral Anaerobic Blood Culture - Preliminary No growth in 1 day 12/11/17 23:00 Blood - Peripheral Aerobic Blood Culture - Preliminary No growth in 1 day 12/11/17 23:00 Blood - Peripheral Anaerobic Blood Culture - Preliminary No growth in 1 day 12/11/17 00:00 Sputum - Endotracheal Gram Stain - Final Imaging: Chest X-Ray 12/11/17 22:21 CONCLUSION: 1. Underinflation with perihilar interstitial prominence which could be related to the underinflation or could represent pulmonary edema. No airspace consolidation is identified. 2. Endotracheal tube tip measures 2.7 cm from the rosette. Cervical Spine CT 12/12/17 00:00 CONCLUSION: No acute cervical spine abnormality is identified. Head CT 12/12/17 00:00 CONCLUSION: No acute intracranial abnormality is identified. . Objective Remarks: GENERAL: 67-year-old male currently orotracheally intubated SKIN: Warm and dry. HEAD: Atraumatic. Normocephalic about 3 mm bilaterally and reactive. EYES: Pupils equal and round. No scleral icterus. No injection or drainage. ENT: No nasal bleeding or discharge. Mucous membranes pink and moist. NECK: Trachea midline. No JVD. Scarring from prior neck dissection noted CARDIOVASCULAR: Regular rate and rhythm. S1, S2 no S4. Without murmur RESPIRATORY: No accessory muscle use. Clear to auscultation. Breath sounds equal bilaterally. GASTROINTESTINAL: Abdomen soft, non-tender, nondistended. Hypoactive bowel sounds appreciated.. G-tube in the left upper quadrant is clean dry and intact MUSCULOSKELETAL: Extremities without significant peripheral edema. No obvious deformities. NEUROLOGICAL: Cranial nerves II through XII appear to be grossly intact. Positive gag and cough. Because of corneal reflex. Strength 5 out of 5 right upper and lower extremity. 1 out of 5 left upper extremity. 3-5 left lower extremity. Assessment and Plan - Assessment and Plan Plan: Neuro/Psych: Acute encephalopathy Chronic benzodiazepine use with clonazepam 1 mg 3 times daily Chronic opioid use with fentanyl patches 25 mcg every 72 hours/found with 3 fentanyl patches on him Depression disorder NOS Currently a propofol drip at 40 mcg/kg/min/fentanyl drip at 250 mcg an hour for sedation/analgesia while intubated Goal of RA SS -[address] brain on admission revealed no acute intracranial findings Unable to do MRI brain secondary to retained metal and I according to . Urgent CT brain with and without contrast/CT angiogram of the head and neck with history of carotid stenosis and left upper extremity weakness on examination CV: Elevated troponin Essential hypertension Coronary artery disease Bilateral carotid artery stents Troponin peaked at 0.39. EKG revealed no acute ST changes or bundle-branch blocks Continue amlodipine 10 mg daily/home medication for hypertension Limited 2D echocardiogram. Recheck troponin in a.m. Resp: Acute respiratory failure secondary to aspiration PRVC ventilation Albuterol/ipratropium aerosols every 6 hours with albuterol aerosols every 2 hours as needed for dyspnea Ventilator bundle CPAP trial/spontaneous breathing trials when clinically indicated A.m. chest x-ray ordered GI: Resume tube feedings with Jevity 1.5 goal 55 cc an hour with Indu protein 1 packet 3 times daily Famotidine for GI prophylaxis Docusate sodium/senna 1 tablet twice daily for bowel regimen : Maintain Salas catheter Endo: SSI with Accu-Cheks every 6 hours to maintain euglycemia Renal: Monitor urine output Accurate I's and O's Creatinine currently within normal limits Heme: ID: Received 1 dose of Pipracil/tazobactam and vancomycin ED. Continue Blood cultures 2, sputum and urine on admission no growth to date MSK: PT evaluate and treat FEN: Hypomagnesia Hypophosphatemia Hypocalcemia Replace electrolytes as clinically indicated per ICU electrolyte protocol Access -Utilize peripheral IV. Central and if indicated Prophylaxis -GI -famotidine -DVT -SCD/enoxaparin 35 minutes critical care time follow-up Code Status: Full code Discussed Condition With: With and mother at bedside. Care plan discussed and all questions answered.
--- NOTE | 2017-12-12 12:28 | ECG ---
Date Performed: 12/11/2017 Time Performed: 22:25:21 PTAGE: 67 years EKG: Sinus rhythm NORMAL ECG PREVIOUS TRACING : 08/04/1993 17.37 Since the previous tracing, no significant change noted DOCTOR: Sheri Eckert Interpretating Date/Time 12/12/2017 12:28:16
[2017-12-12] MEDS ORDERED: Sodium Phosphate Inj 15 MMOL in Sodium Chlor 0.9% Inj 150 ML IV.SIG ONE (13:00)
[2017-12-12] MEDS: Piperacil/Tazo 4.5 GM Premix 4.5 GM/100 ML BAG IV.SIG SCH ×3 (13:02→23:05)
[2017-12-12] MEDS: Insulin NovoLOG Aspart Correctional Sugar Inj SQ SCH ×2 (13:35→18:16)
--- NOTE | 2017-12-12 14:43 | CT ---
EXAM DATE: 12/12/2017 2:34 PM EDT AGE/SEX: 67 years / Male INDICATIONS: Left upper extremity weakness. CLINICAL DATA: This is the patient's initial encounter. Patient reports that signs and symptoms have been present for 1 day and indicates a pain score of Nonresponsive. MEDICAL/SURGICAL HISTORY: Cardiovascular disease. Hypertension. Cerebrovascular disease. throat cancer, tongue cancer Appendectomy. glossectomy, G-tube RADIATION DOSE: 28.22 CTDI (mGy) [place] [facility] [place]. . TECHNIQUE: CT of the head without contrast. Using automated exposure control and adjustment of the mA and/or kV according to patient size, radiation dose was kept as low as reasonably achievable to ob tain optimal diagnostic quality images. DICOM format image data is available electronically for revi ew and comparison. FINDINGS: There are no signs of intracranial hemorrhage. There is a new area of low attenuation in the right oc cipital region of concern for an area of evolving infarction. There is also a small focus of decrease d attenuation in the right frontal cortex on axial image 28. No masses are seen. There are no fractur es. Patchy ethmoid air cell mucosal disease. CONCLUSION: 1. Subtle areas of low attenuation are now seen in the right frontal and occipital regions of concer n for areas of evolving infarction. There is no hemorrhage or mass effect. . Electronically signed by: Delfin Melendez MD 12/12/2017 2:41 PM EDT
--- NOTE | 2017-12-12 16:17 | CT ---
EXAM DATE: 12/12/2017 4:03 PM EDT AGE/SEX: 67 years / Male INDICATIONS: Left upper extremity weakness. CLINICAL DATA: This is the patient's initial encounter. Patient reports that signs and symptoms have been present for 1 day and indicates a pain score of Nonresponsive. MEDICAL/SURGICAL HISTORY: Cardiovascular disease. Cerebrovascular disease. Hypertension. throat cancer, tongue cancer Appendectomy. glossectomy, G-tube, neck dissection. RADIATION DOSE: 28.52 CTDI (mGy) ; Combined studies COMPARISON: No prior exams available for comparison. TECHNIQUE: Volumetric scanning was performed using a multirow detector CT scanner during bolus infus ion of 75 ml Omnipaque 350 (iohexol) nonionic water-soluble contrast as a cumulative dose for multip le exams. The data was postprocessed with a variety of visualization algorithms including full-volu me maximum intensity projection, multiplanar sliding thin-slab reformation, curved-planar reformation , and surface-rendering techniques. Using automated exposure control and adjustment of the mA and/or kV according to patient size, radiation dose was kept as low as reasonably achievable to obtain opti mal diagnostic quality images. DICOM format image data is available electronically for review and co mparison. Percent stenosis is calculated using the diameter of the stenotic region over the diameter of the nor mal distal internal carotid artery. 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 There is mild mucoperiosteal thickening within multiple et hmoid air cells bilaterally. There is a stent within bilateral internal carotid arteries appear intac t. The takeoff of the major vessels from the arch appear intact and both common carotid arteries have separate origins from the arch. There is mild to moderate atherosclerotic disease at the origin of l eft internal carotid artery without any significant stenosis. There are areas of atherosclerotic plaq uing with ulceration at the origin of the right internal carotid artery with approximate 7-80% stenos is right at the takeoff of the right ICA prior to the origin of the patient's internal coronary stent . CONCLUSION: 1. Atelectatic calcifications and areas of ulceration involving the origin of the right internal car otid artery with approximate 70-80% stenosis right at the takeoff of the right ICA prior to the start of the patient's internal coronary stent. Electronically signed by: Panfilo Melendez MD 12/12/2017 4:16 PM EDT
--- NOTE | 2017-12-12 16:19 | CT ---
EXAM DATE: 12/12/2017 4:02 PM EDT AGE/SEX: 67 years / Male INDICATIONS: Left upper extremity weakness. CLINICAL DATA: This is the patient's initial encounter. Patient reports that signs and symptoms have been present for 1 day and indicates a pain score of Nonresponsive. MEDICAL/SURGICAL HISTORY: Cardiovascular disease. Cerebrovascular disease. Hypertension. throat cancer, tongue cancer Appendectomy. glossectomy, G-tube, neck dissection RADIATION DOSE: 28.52 CTDI (mGy) ; Combined studies COMPARISON: No prior exams available for comparison. TECHNIQUE: Volumetric scanning was performed using a multi-row detector CT scanner during bolus infu kristie of 75 ml Omnipaque 350 (iohexol) nonionic water-soluble contrast as a cumulative dose for multi ple exams. The data was post processed with a variety of visualization algorithms including full vo lume maximum intensity projection, multi-planar sliding thin slab reformation, curved planar reformat ion, and surface rendering techniques. Using automated exposure control and adjustment of the mA and /or kV according to patient size, radiation dose was kept as low as reasonably achievable to obtain o ptimal diagnostic quality images. DICOM format image data is available electronically for review and comparison. FINDINGS: There is excellent visualization of the major intracranial arteries out to the second-order branch ve ssels. There is no evidence for aneurysm, vessel truncation or stenosis, and no evidence for vascula r malformation. CONCLUSION: 1. Negative CTA Head. Electronically signed by: Panfilo Melendez MD 12/12/2017 4:17 PM EDT
[2017-12-12 16:32] LABS: Chol/HDL Ratio 1.99 Ratio; HDL Cholesterol 58.7 mg/dL (40.0-60.0)
--- NOTE | 2017-12-12 17:23 | MB ---
cc: Aris Link MD, PhD DATE: 12/12/2017 REASON FOR CONSULTATION: Stroke. HISTORY OF PRESENT ILLNESS: Mr. Mendoza is a 67-year-old man who has history of recurrent head and neck cancer treated surgically with radiation therapy. Also has bilateral carotid stents. He was found down unresponsive by his family for a period of time. Also, he had a PEG tube placed and seemed to be aspirating, currently intubated and nonresponsive. He was also hypotensive with a systolic pressure in the 90s. PAST MEDICAL HISTORY: History of recurrent head and neck cancer treated surgically with radiation therapy, coronary artery disease, depression, hypertension, appendectomy. CURRENT MEDICATIONS: Tylenol, albuterol, DuoNeb, Norvasc, chlorhexidine, Dulcolax, Peridex, Klonopin, Lovenox 40 mg subcutaneously daily, Pepcid, Fentanyl insulin p.r.n., lactulose, magnesium oxide, Reglan, Versed p.r.n., Remeron p.r.n. NEUROLOGIC EXAMINATION: VITAL SIGNS: Blood pressure is 140/68, pulse is 60, respiratory rate is 24, temperature 98 degrees. HIGHER CORTICAL FUNCTION: He is sedated and nonresponsive. Pupils are miotic, minimally reactive. Extraocular movements intact to doll's maneuver. MOTOR EXAM: No focal deficit. CT had surgery for low attenuation in the right frontal and occipital regions, consistent with stroke. He cannot have an MRI because of metal fragments in the eyes. Cervical spine CT: No acute injury. LABORATORY DATA: White count is 9800, hemoglobin 13.4, hematocrit 30%, platelet count 194,000. PT 10.7, INR 1.1, aPTT 26.8. Sodium is 142, potassium 4.5, chloride 108, CO2 22.3, BUN is 19, creatinine 0.83, GFR is 99, AST 366, ALT 291. 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 History of carotid artery stent. RECOMMENDATION: Aspirin 300 mg daily suppository. We will check a CT angiogram of the carotids with official carotid stent. Also, echocardiogram. Monitor cardiac telemetry. We will also check a lipid panel. Aris Link MD, PhD DELORIS/reyna , 04:00 PM , 04:07 PM
[2017-12-12] MEDS: Vancomycin Inj 1,250 MG in Sodium Chlor 0.9% Inj 250 ML IV.SIG SCH (17:30)
[2017-12-12] MEDS: Hypromellose 0.3% Opth Gel 10 GM Bottle EACH EYE SCH (20:49)
[2017-12-13] MEDS: Insulin NovoLOG Aspart Correctional Sugar Inj SQ SCH ×4 (00:25→19:42)
[2017-12-13] MEDS: Sod Chloride 0.9% Inj 1,000 ML IV.CONT SCH ×2 (02:29→12:39)
[2017-12-13 03:52] LABS: Baso # (Auto) 0.1 th/mm3 (0.0-0.2); Baso % (Auto) 0.7 % (0.0-2.0); Eos % (Auto) 0.4 % (0.0-4.0); Hematocrit 32.6 % (39.0-51.0); Hemoglobin 11.4 gm/dL (13.0-17.0); Lymph # (Auto) 1.6 th/mm3 (1.0-4.8); Lymph % (Auto) 20.2 % (9.0-44.0); Mean Corpuscular HGB Conc 34.9 % (32.0-36.0); Mean Corpuscular Hemoglobin 34.1 pg (27.0-34.0); Mean Corpuscular Volume 97.5 fL (80.0-100.0); Mean Platelet Volume 9.3 fL (7.0-11.0); Mono # (Auto) 0.4 th/mm3 (0.0-0.9); Mono % (Auto) 5.2 % (0.0-8.0); Neut # (Auto) 5.7 th/mm3 (1.8-7.7); Neut % (Auto) 73.5 % (16.0-70.0); Platelet Count 128 th/mm3 (150-450); Red Blood Count 3.35 mil/mm3 (4.50-5.90); Red Cell Distribution Width 13.3 % (11.6-17.2); White Blood Count 7.7 th/mm3 (4.0-11.0)
[2017-12-13] MEDS: Propofol 1000 mg/100 ml Inj 1,000 MG/100 ML BOTTLE IV.CONT PRN ×3 (04:04→22:23)
[2017-12-13] MEDS: Chlorhexidine Gluconate 2% 1 Pack (2 Cloths) TOPICAL SCH (04:04)
[2017-12-13] MEDS: Oral Hygiene Kit OROPHARYNG SCH ×3 (04:04→18:37)
[2017-12-13 04:21] LABS: Alanine Aminotransferase 246 U/L (12-78); Albumin 2.5 g/dL (3.4-5.0); Alkaline Phosphatase 79 U/L (45-117); Anion Gap 10 meq/L (5-15); Aspartate Aminotransferase 213 U/L (15-37); Blood Urea Nitrogen 15 mg/dL (7-18); Calcium 7.3 mg/dL (8.5-10.1); Carbon Dioxide 24.1 meq/L (21.0-32.0); Chloride 110 meq/L (98-107); Glomerular Filtration Rate Greater Than 89 mL/min (>89); Glucose,Random 80 mg/dL (74-106); Magnesium 2.3 mg/dL (1.5-2.5); Phosphorus 1.4 mg/dL (2.5-4.9); Sodium 144 meq/L (136-145); Total Protein 5.6 g/dL (6.4-8.2); Troponin I 0.24 ng/mL (0.02-0.05)
[2017-12-13 04:43] LABS: Platelet Morphology Normal (Normal)
[2017-12-13] MEDS: Piperacil/Tazo 4.5 GM Premix 4.5 GM/100 ML BAG IV.SIG SCH ×3 (05:29→18:38)
[2017-12-13] MEDS: Vancomycin Inj 1,250 MG in Sodium Chlor 0.9% Inj 250 ML IV.SIG SCH ×2 (05:29→18:38)
--- NOTE | 2017-12-13 05:30 | XR ---
EXAM DATE: 12/13/2017 5:10 AM EDT AGE/SEX: 67 years / Male INDICATIONS: Respiratory failure. CLINICAL DATA: This is the patient's subsequent encounter. Patient reports that signs and symptoms h ave been present for 2 days and indicates a pain score of Nonresponsive. MEDICAL/SURGICAL HISTORY: . Hypertension. Cardiovascular disease Neck and tongue cancer. . Renae endectomy. Carotid stent. COMPARISON: [facility] – [place], CHEST 1V SINGLE AP, 12/11/2017. . FINDINGS: Portable AP view of the chest demonstrates a normal-sized cardiac silhouette. Endotracheal tube remai ns present with tip at the aortic knob level. There is perihilar interstitial and airspace opacity mi ldly increased from yesterday's examination. No pleural effusion or pneumothorax is identified. The b ones and soft tissues demonstrate no acute finding. CONCLUSION: Mildly increased perihilar interstitial and airspace opacities. Although nonspecific the appearance c ould be related to pulmonary edema in the appropriate clinical setting. Electronically signed by: Fahad Cole MD 12/13/2017 5:28 AM EDT
[2017-12-13] MEDS: Potassium Chlor 20 mEq Premix 20 MEQ/100 ML PIGGYBACK IV.SIG PRN ×3 (07:50→22:25)
[2017-12-13] MEDS: fentaNYL 10 mcg/mL Premix Drip 2,500 MCG/250 ML BAG IV.SIG PRN (09:08)
[2017-12-13] MEDS: Famotidine PF Inj 20 MG/2 ML Vial IV.PUSH SCH ×2 (09:43→21:04)
[2017-12-13] MEDS: Senna/Docusate Sodium 8.6/50 MG Tablet PO SCH ×2 (09:43→21:04)
[2017-12-13] MEDS: amLODIPine 10 MG Tablet PO SCH (09:43)
[2017-12-13] MEDS: Aspirin 300 MG Supp RECTAL SCH ×2 (09:43→13:41)
[2017-12-13] MEDS: Mirtazapine 15 MG Tablet PO SCH (09:43)
[2017-12-13] MEDS: clonazePAM 1 MG Tablet PO SCH ×3 (09:43→18:37)
[2017-12-13] MEDS: Chlorhexidine 0.12% Oral Kit 15 ML UDC OROPHARYNG SCH ×2 (09:44→21:05)
[2017-12-13] MEDS: Hypromellose 0.3% Opth Gel 10 GM Bottle EACH EYE SCH ×2 (09:44→21:06)
--- NOTE | 2017-12-13 10:55 | P.PNCC ---
Subjective Subjective Remarks/Hospital Course: 67-year-old male with past medical history of head and neck cancer presents from home after being found unresponsive. Patient was found by EMS to have spontaneous respirations palpable pulse and blood pressure but markedly decreased level of consciousness, hypotensive with large amount of tube feeding contents in the oral cavity. Patient has history of head neck cancer and takes no oral medications takes all medications and feedings through PEG tube. Patient was last seen normal approximately at breakfast time on Tuesday and then family members found him unresponsive. Unknown downtime. Upon EMS arrival patient was assessed and suctioned and initial O2 saturations were 60% patient was placed on supplemental oxygen with improved ventilations and then subsequently intubated with a 7.5 endotracheal tube. Per EMS copious amounts of suctioning was performed and large amounts of tube feeding were suctioned. Patient presents now with endotracheal tube in place bilateral breath sounds to auscultation with bag valve ventilation and normotensive upon EMS presentation however initial blood pressure here mildly hypotensive with systolic pressure of 90 mmHg. Patient remains unresponsive. Family members not available. Patient with known allergies to narcotics. No other medical history is available. Subjective 12/12: Afebrile. Currently on propofol and fentanyl drips. Not really moving his left upper lower extremity. CT brain with CT angiogram brain ordered. Cannot do MRI due to retained metal metal in eye according to . 12/13: Sedated, arousable, orally intubated on mechanical ventilation Objective Vital Signs / I&O: Vital Signs 12/12/17 11:44 12/12/17 12:00 12/12/17 14:00 Temperature 99.5 F Pulse Rate 94 H 72 Respiratory Rate 16 16 Blood Pressure 112/64 Pulse Oximetry 98 98 12/12/17 14:52 12/12/17 15:45 12/12/17 16:00 Temperature 98.7 F Pulse Rate 68 69 Respiratory Rate 17 16 Blood Pressure 119/58 L Pulse Oximetry 100 100 98 12/12/17 18:00 12/12/17 19:31 12/12/17 20:00 Temperature Pulse Rate 65 64 66 Respiratory Rate 16 Blood Pressure Pulse Oximetry 100 12/12/17 21:00 12/12/17 22:00 12/13/17 00:00 Temperature 98.5 F 98.7 F Pulse Rate 78 64 64 Respiratory Rate 21 16 Blood Pressure 166/77 H 134/66 Pulse Oximetry 100 100 12/13/17 00:24 12/13/17 02:00 12/13/17 03:46 Temperature Pulse Rate 62 61 Respiratory Rate 16 16 Blood Pressure Pulse Oximetry 100 12/13/17 04:00 12/13/17 06:00 12/13/17 07:51 Temperature 98.1 F Pulse Rate 60 62 Respiratory Rate 16 22 Blood Pressure 147/66 H Pulse Oximetry 98 99 12/13/17 08:00 12/13/17 09:25 12/13/17 10:36 Temperature 98.1 F Pulse Rate 72 66 Respiratory Rate 14 16 17 Blood Pressure 149/73 H Pulse Oximetry 100 Intake & Output 12/12/17 12/13/17 12/13/17 18:59 06:59 18:59 Intake Total 1250 / 1250 350 / 350 Output Total 625 / 625 1800 / 1800 Balance 1367.5 / 1367.5 -550 / -550 350 / 350 Weight 88 kg Intake: IV 1250 / 1250 350 / 350 Versed Inj 50 mg In 50 ml @ 2 20 / 20 MG/HR 2 mls/hr IV.CONT TITRATE PRN Rx#:[id number] Diprivan 1000 mg/100 ml Inj 1, 200 / 200 200 / 200 000 mg In 100 ml @ 5 MCG/KG/MIN 2.722 mls/hr IV.CONT TITRATE PRN Rx#:[id number] NS Inj 1,000 ML @ 84 mls/hr IV. 300 / 300 700 / 700 CONT .[id number] [facility] Rx#:[id number] Magnesium Sulfate Inj 2 GM In 200 / 200 NS Inj 96 ML @ 50 mls/hr IV.SIG UNSCH PRN Rx#:[id number] Zosyn 4.5 GM Premix 4.5 gm In 200 / 200 100 / 100 100 ml @ 200 mls/hr IV.SIG Q6H [facility] Rx#:[id number] KCl 20 mEq Premix Inj 20 meq In 300 / 300 100 / 100 100 ml @ 50 mls/hr IV.SIG Q2H PRN Rx#:[id number] Sodium Phosphate Inj 30 MMOL In 260 / 260 NS Inj 250 ML @ 42 mls/hr IV. SIG UNSCH PRN Rx#:[id number] Vancomycin Inj 1,250 MG In NS 262.5 / 262.5 Inj 250 ML @ 250 mls/hr IV.SIG Q12H [facility] Rx#:[id number] fentaNYL 10 mcg/mL Premix Drip 250 / 250 250 / 250 250 / 250 2,500 mcg In 250 ml @ 50 MCG/HR 5 mls/hr IV.SIG TITRATE PRN Rx #:[id number] Output: Urine Amount (Catheter) 600 / 600 1750 / 1750 Indwelling Urethral Catheter 600 / 600 1750 / 1750 Gastric Drainage 25 / 25 50 / 50 Gastrostomy Tube (PEG) 25 / 25 50 / 50 Other: # Bowel Movements 0 Result Diagrams: 12/13/17 03:36 12/13/17 03:36 Imaging: Chest X-Ray 12/11/17 22:21 CONCLUSION: 1. Underinflation with perihilar interstitial prominence which could be related to the underinflation or could represent pulmonary edema. No airspace consolidation is identified. 2. Endotracheal tube tip measures 2.7 cm from the rosette. Cervical Spine CT 12/12/17 00:00 CONCLUSION: No acute cervical spine abnormality is identified. Head CT 12/12/17 00:00 CONCLUSION: No acute intracranial abnormality is identified. . Head CTA 12/12/17 00:00 CONCLUSION: 1. Negative CTA Head. Neck CTA 12/12/17 00:00 CONCLUSION: 1. Atelectatic calcifications and areas of ulceration involving the origin of the right internal carotid artery with approximate 70-80% stenosis right at the takeoff of the right ICA prior to the start of the patient's internal coronary stent. Head CT 12/12/17 12:29 CONCLUSION: 1. Subtle areas of low attenuation are now seen in the right frontal and occipital regions of concern for areas of evolving infarction. There is no hemorrhage or mass effect. . Chest X-Ray 12/13/17 06:00 CONCLUSION: Mildly increased perihilar interstitial and airspace opacities. Although nonspecific the appearance could be related to pulmonary edema in the appropriate clinical setting. Objective Remarks: GENERAL: 67-year-old male currently orotracheally intubated SKIN: Warm and dry. HEAD: Atraumatic. Normocephalic about 3 mm bilaterally and reactive. EYES: Pupils equal and round. No scleral icterus. No injection or drainage. ENT: No nasal bleeding or discharge. Mucous membranes pink and moist. NECK: Trachea midline. No JVD. Scarring from prior neck dissection noted CARDIOVASCULAR: Regular rate and rhythm. S1, S2 no S4. Without murmur RESPIRATORY: No accessory muscle use. Clear to auscultation. Breath sounds equal bilaterally. GASTROINTESTINAL: Abdomen soft, non-tender, nondistended. Hypoactive bowel sounds appreciated.. G-tube in the left upper quadrant is clean dry and intact MUSCULOSKELETAL: Extremities without significant peripheral edema. No obvious deformities. NEUROLOGICAL: Cranial nerves II through XII appear to be grossly intact. Positive gag and cough. Because of corneal reflex. Strength 5 out of 5 right upper and lower extremity. 1 out of 5 left upper extremity. 3-5 left lower extremity. Assessment and Plan - Assessment and Plan Plan: Neuro/Psych: Acute encephalopathy Chronic benzodiazepine use with clonazepam 1 mg 3 times daily Chronic opioid use with fentanyl patches 25 mcg every 72 hours/found with 3 fentanyl patches on him Depression disorder NOS Currently a propofol drip at 40 mcg/kg/min/fentanyl drip at 250 mcg an hour for sedation/analgesia while intubated Goal of RASS -[address] brain on admission revealed no acute intracranial findings Unable to do MRI brain secondary to retained metal and I according to . Urgent CT brain with and without contrast/CT angiogram of the head and neck with history of carotid stenosis and left upper extremity weakness on examination CV: Elevated troponin Essential hypertension Coronary artery disease Bilateral carotid artery stents Troponin peaked at 0.39. EKG revealed no acute ST changes or bundle-branch blocks Continue amlodipine 10 mg daily/home medication for hypertension Limited 2D echocardiogram. Recheck troponin in a.m. Resp: Acute respiratory failure secondary to aspiration PRVC ventilation Albuterol/ipratropium aerosols every 6 hours with albuterol aerosols every 2 hours as needed for dyspnea Ventilator bundle CPAP trial/spontaneous breathing trials to decide extubation GI: Continue tube feedings with Jevity 1.5 goal 55 cc an hour with Hamilton protein 1 packet 3 times daily Famotidine for GI prophylaxis Docusate sodium/senna 1 tablet twice daily for bowel regimen : Maintain Salas catheter Endo: SSI with Accu-Cheks every 6 hours to maintain euglycemia Renal: Monitor urine output Accurate I's and O's Creatinine currently within normal limits Heme: ID: Received 1 dose of Pipracil/tazobactam and vancomycin ED. Continue Blood cultures 2, sputum and urine on admission no growth to date MSK: PT evaluate and treat FEN: Hypomagnesia Hypophosphatemia Hypocalcemia Replace electrolytes as clinically indicated per ICU electrolyte protocol Access -Utilize peripheral IV. Central and if indicated Prophylaxis -GI -famotidine -DVT -SCD/enoxaparin 35 minutes critical care time follow-up
--- NOTE | 2017-12-13 11:33 | P.PNPAL ---
Reason for Visit Reason for visit: a. To assist with evaluation and management of symptoms including:shortness of breath, pain, altered mental status b. To assist medical decision maker(s) with: better understanding of current medical conditions; weighing benefits/burdens of medical treatment options; making medical treatment decisions. Subjective Subjective/Interval History: Follow up medically necessary for symptom management. Patient remains intubated , sedated on mechanical ventilation. FiO2 remains at 40% with O2 saturation in the high 90s. Patient being slowly weaned off sedation with plan for spontaneous breathing trials per bedside nurse report. Patient is currently on propofol infusion 35 mcg/kg/min and fentanyl infusion at 25 mcg/hr. Patient spontaneously moving bilateral lower extremities and right upper extremity. Left upper extremity remains flaccid. Follow-up head CT on 12/12/17 revealed right hemispheric stroke in the frontal occipital area. Neurology Dr. Link consulted on 12/12/17 for evaluation and stroke, recommended aspirin 300 mg daily suppository, CT angiogram of the carotids and echocardiogram. Chest x-ray today revealed mildly increased perihilar interstitial and airspace opacities. Laboratory workup today revealing potassium 3.0, BUN/creatinine 15/0.66, random glucose 80, phosphorus 1.4, magnesium 2.3, AST 213, ALT 246, troponin 0 0.24, total protein 5.6, albumin 2.5. peg tube remains connected to LIWS. Patient's spouse and daughter visiting at bedside. Updated on patient's medical condition. Goals remain aggressive. Case discussed with bedside RN. Family/Friend Interactions: See interval note. Advance Directives Living Will: Copy in medical record Health Care Surrogate: Copy in medical record Durable Power of Chip Loft Worker: Never completed Advance Directives Date on File: 06/18/13 Health Care Surrogate Name and Number: Reji Rivas [phone] Alt: Howard Leonardo [phone] Objective Vital Signs: Vital Signs 12/12/17 11:44 12/12/17 12:00 12/12/17 14:00 Temperature 99.5 F Pulse Rate 94 H 72 Respiratory Rate 16 16 Blood Pressure 112/64 Pulse Oximetry 98 98 12/12/17 14:52 12/12/17 15:45 12/12/17 16:00 Temperature 98.7 F Pulse Rate 68 69 Respiratory Rate 17 16 Blood Pressure 119/58 L Pulse Oximetry 100 100 98 12/12/17 18:00 12/12/17 19:31 12/12/17 20:00 Temperature Pulse Rate 65 64 66 Respiratory Rate 16 Blood Pressure Pulse Oximetry 100 12/12/17 21:00 12/12/17 22:00 12/13/17 00:00 Temperature 98.5 F 98.7 F Pulse Rate 78 64 64 Respiratory Rate 21 16 Blood Pressure 166/77 H 134/66 Pulse Oximetry 100 100 12/13/17 00:24 12/13/17 02:00 12/13/17 03:46 Temperature Pulse Rate 62 61 Respiratory Rate 16 16 Blood Pressure Pulse Oximetry 100 12/13/17 04:00 12/13/17 06:00 12/13/17 07:51 Temperature 98.1 F Pulse Rate 60 62 Respiratory Rate 16 22 Blood Pressure 147/66 H Pulse Oximetry 98 99 12/13/17 08:00 12/13/17 09:25 12/13/17 10:36 Temperature 98.1 F Pulse Rate 72 66 Respiratory Rate 14 16 17 Blood Pressure 149/73 H Pulse Oximetry 100 Intake & Output 12/12/17 12/13/17 12/13/17 18:59 06:59 18:59 Intake Total 1250 / 1250 350 / 350 Output Total 625 / 625 1800 / 1800 Balance 1367.5 / 1367.5 -550 / -550 350 / 350 Weight 88 kg Intake: IV 1250 / 1250 350 / 350 Versed Inj 50 mg In 50 ml @ 2 20 / 20 MG/HR 2 mls/hr IV.CONT TITRATE PRN Rx#:[id number] Diprivan 1000 mg/100 ml Inj 1, 200 / 200 200 / 200 000 mg In 100 ml @ 5 MCG/KG/MIN 2.722 mls/hr IV.CONT TITRATE PRN Rx#:[id number] NS Inj 1,000 ML @ 84 mls/hr IV. 300 / 300 700 / 700 CONT .[id number] [facility] Rx#:[id number] Magnesium Sulfate Inj 2 GM In 200 / 200 NS Inj 96 ML @ 50 mls/hr IV.SIG UNSCH PRN Rx#:[id number] Zosyn 4.5 GM Premix 4.5 gm In 200 / 200 100 / 100 100 ml @ 200 mls/hr IV.SIG Q6H [facility] Rx#:[id number] KCl 20 mEq Premix Inj 20 meq In 300 / 300 100 / 100 100 ml @ 50 mls/hr IV.SIG Q2H PRN Rx#:[id number] Sodium Phosphate Inj 30 MMOL In 260 / 260 NS Inj 250 ML @ 42 mls/hr IV. SIG UNSCH PRN Rx#:[id number] Vancomycin Inj 1,250 MG In NS 262.5 / 262.5 Inj 250 ML @ 250 mls/hr IV.SIG Q12H [facility] Rx#:[id number] fentaNYL 10 mcg/mL Premix Drip 250 / 250 250 / 250 250 / 250 2,500 mcg In 250 ml @ 50 MCG/HR 5 mls/hr IV.SIG TITRATE PRN Rx #:[id number] Output: Urine Amount (Catheter) 600 / 600 1750 / 1750 Indwelling Urethral Catheter 600 / 600 1750 / 1750 Gastric Drainage 25 / 25 50 / 50 Gastrostomy Tube (PEG) 25 / 25 50 / 50 Other: # Bowel Movements 0 Physical Exam: CONSTITUTIONAL/GENERAL: This is an adequately nourished patient, intubated and sedated TUBES/LINES/DRAINS:PIV, ETT, PEG tube, PIV. Salas catheter, SCDs, BUE soft restraints SKIN: No jaundice, rashes, or lesions. Ecchymoses on upper extremities. No wounds seen anteriorly. Skin temperature appropriate. Not diaphoretic. HEAD: Atraumatic. Normocephalic. EYES: Pupils equal and round and reactive. Extraocular motions intact. No scleral icterus. No injection or drainage. Fundi not examined. ENT: Hearing grossly normal. Nose without bleeding or purulent drainage. Moist oral mucosa NECK: Trachea midline. Supple, nontender. CARDIOVASCULAR: S1, S2 normal,no murmurs, gallops, or rubs. No JVD. Peripheral pulses symmetric. RESPIRATORY/CHEST: Symmetric, unlabored respirations. Clear to auscultation. Breath sounds equal bilaterally. No wheezes, rales, or rhonchi. GASTROINTESTINAL: Abdomen soft, non-tender, nondistended. No guarding.Hypoactive sounds present.PEG tube to LIWS GENITOURINARY: Without palpable bladder distension. Salas catheter in place. MUSCULOSKELETAL: Extremities without clubbing, cyanosis, or edema. No joint tenderness or effusion noted. No calf tenderness. No mottling or clubbing. NEUROLOGICAL: Intubated, sedated on mechanical ventilation.Spontaneously moving RUE, RLE and LLE. Slight withdrawal to noxious stimulation to LUE. PSYCHIATRIC: Unable to assess. Currently calm. Diagnostic Tests Laboratory: Laboratory Results - last 72 hr 12/11/17 12/11/17 12/11/17 23:00 23:00 23:00 WBC 9.8 RBC 3.87 L Hgb 13.4 Hct 38.7 L MCV 100.1 H MCH 34.7 H MCHC 34.7 RDW 13.4 Plt Count 194 MPV 9.3 Prelim Diff (Auto) Neut % (Auto) 81.6 H Lymph % (Auto) 7.9 L [place] % (Auto) 10.2 H Eos % (Auto) 0.1 Baso % (Auto) 0.2 Neut # (Auto) 8.0 H Lymph # (Auto) 0.8 L [place] # (Auto) 1.0 H Eos # (Auto) 0.0 Baso # (Auto) 0.0 WBC Differential . Diff Scan Differential Comment Auto diff final Platelet Estimate Platelet Morphology PT 10.7 INR 1.1 APTT 26.8 Puncture Site Patient Temperature O2 Saturation ABG pH ABG pCO2 ABG pO2 ABG HCO3 ABG O2 Content ABG Base Excess ABG Methemoglobin Basilio Test Hemoglobin Carboxyhemoglobin O2 Delivery Device Vent Setting Inspired O2 Critical Value Sodium 141 Potassium 3.2 L Chloride 100 Carbon Dioxide 22.8 Anion Gap 18 H BUN 23 H Creatinine 1.37 H Estimated GFR 52 L POC Glucose Random Glucose 92 Lactic Acid Calcium 7.4 L* Prot Corrected Calcium 7.6 L Phosphorus Magnesium 2.2 Total Bilirubin 0.2 AST 152 H ALT 136 H Alkaline Phosphatase 85 Total Creatine Kinase 99 Troponin I 0.04 Total Protein 6.8 Albumin 3.2 L Triglycerides Cholesterol LDL Cholesterol, Calc HDL Cholesterol Cholesterol/HDL Ratio Urine Color Urine Clarity Urine pH Ur Specific [place] Urine Protein Urine Glucose (UA) Urine Ketones Urine Occult Blood Urine Nitrate Urine Bilirubin Urine Urobilinogen Ur Leukocyte Esterase Urine RBC Urine WBC Ur Squamous Epith Cells Amorphous Sediment Urine Bacteria Hyaline Casts Granular Casts Urine Mucus Micro UA Comment Ur Microscopic Review Urine Culture Comments Nasal Screen MRSA (PCR) 12/11/17 12/11/17 12/11/17 23:00 23:00 23:25 WBC RBC Hgb Hct MCV MCH MCHC RDW Plt Count MPV Prelim Diff (Auto) Neut % (Auto) Lymph % (Auto) [place] % (Auto) Eos % (Auto) Baso % (Auto) Neut # (Auto) Lymph # (Auto) [place] # (Auto) Eos # (Auto) Baso # (Auto) WBC Differential Diff Scan Differential Comment Platelet Estimate Platelet Morphology PT INR APTT Puncture Site Right radial Patient Temperature 98.6 O2 Saturation 95 ABG pH 7.25 L* ABG pCO2 46 H ABG pO2 100 ABG HCO3 19 L ABG O2 Content 17.8 ABG Base Excess -6.8 L ABG Methemoglobin 0.6 Basilio Test Present Hemoglobin 13.2 Carboxyhemoglobin 1.2 O2 Delivery Device Ventilator Vent Setting Inspired O2 80 Critical Value Yes Sodium Potassium Chloride Carbon Dioxide Anion Gap BUN Creatinine Estimated GFR POC Glucose Random Glucose Lactic Acid 12.4 H* Calcium Prot Corrected Calcium Phosphorus Magnesium Total Bilirubin AST ALT Alkaline Phosphatase Total Creatine Kinase Troponin I Total Protein Albumin Triglycerides Cholesterol LDL Cholesterol, Calc HDL Cholesterol Cholesterol/HDL Ratio Urine Color Yellow Urine Clarity Hazy H Urine pH 5.0 Ur Specific [place] 1.014 Urine Protein 100 H Urine Glucose (UA) Negative Urine Ketones Trace H Urine Occult Blood Negative Urine Nitrate Negative Urine Bilirubin Negative Urine Urobilinogen Less than 2 Ur Leukocyte Esterase Negative Urine RBC 2 Urine WBC 4 Ur Squamous Epith Cells 1 Amorphous Sediment Rare H Urine Bacteria Occasional H Hyaline Casts 95 Granular Casts 8 Urine Mucus Few H Micro UA Comment Cath-culture ind Ur Microscopic Review Not Reportable Urine Culture Comments Cath-cult indicated Nasal Screen MRSA (PCR) 12/12/17 12/12/17 12/12/17 02:00 04:22 04:22 WBC 10.5 RBC 3.78 L Hgb 12.8 L Hct 37.0 L MCV 97.9 MCH 33.8 MCHC 34.6 RDW 13.4 Plt Count 208 MPV 10.1 Prelim Diff (Auto) Neut % (Auto) 77.1 H Lymph % (Auto) 11.8 [place] % (Auto) 10.6 H Eos % (Auto) 0.0 Baso % (Auto) 0.5 Neut # (Auto) 8.1 H Lymph # (Auto) 1.2 [place] # (Auto) 1.1 H Eos # (Auto) 0.0 Baso # (Auto) 0.0 WBC Differential . Diff Scan Differential Comment Auto diff final Platelet Estimate Platelet Morphology PT 10.7 INR 1.1 APTT 25.1 Puncture Site Patient Temperature O2 Saturation ABG pH ABG pCO2 ABG pO2 ABG HCO3 ABG O2 Content ABG Base Excess ABG Methemoglobin Basilio Test Hemoglobin Carboxyhemoglobin O2 Delivery Device Vent Setting Inspired O2 Critical Value Sodium Potassium Chloride Carbon Dioxide Anion Gap BUN Creatinine Estimated GFR POC Glucose Random Glucose Lactic Acid Calcium Prot Corrected Calcium Phosphorus Magnesium Total Bilirubin AST ALT Alkaline Phosphatase Total Creatine Kinase Troponin I Total Protein Albumin Triglycerides Cholesterol LDL Cholesterol, Calc HDL Cholesterol Cholesterol/HDL Ratio Urine Color Urine Clarity Urine pH Ur Specific [place] Urine Protein Urine Glucose (UA) Urine Ketones Urine Occult Blood Urine Nitrate Urine Bilirubin Urine Urobilinogen Ur Leukocyte Esterase Urine RBC Urine WBC Ur Squamous Epith Cells Amorphous Sediment Urine Bacteria Hyaline Casts Granular Casts Urine Mucus Micro UA Comment Ur Microscopic Review Urine Culture Comments Nasal Screen MRSA (PCR) Mrsa detected 12/12/17 12/12/17 12/12/17 04:22 06:00 09:16 WBC RBC Hgb Hct MCV MCH MCHC RDW Plt Count MPV Prelim Diff (Auto) Neut % (Auto) Lymph % (Auto) [place] % (Auto) Eos % (Auto) Baso % (Auto) Neut # (Auto) Lymph # (Auto) [place] # (Auto) Eos # (Auto) Baso # (Auto) WBC Differential Diff Scan Differential Comment Platelet Estimate Platelet Morphology PT INR APTT Puncture Site Patient Temperature O2 Saturation ABG pH ABG pCO2 ABG pO2 ABG HCO3 ABG O2 Content ABG Base Excess ABG Methemoglobin Basilio Test Hemoglobin Carboxyhemoglobin O2 Delivery Device Vent Setting Inspired O2 Critical Value Sodium 142 Potassium 4.5 D Chloride 108 H D Carbon Dioxide 22.3 Anion Gap 12 BUN 19 H Creatinine 0.83 Estimated GFR Greater than 89 POC Glucose Random Glucose 73 L Lactic Acid 6.5 H* Calcium 7.0 L* Prot Corrected Calcium 7.9 L Phosphorus 1.8 L Magnesium 1.5 D Total Bilirubin 0.4 AST 366 H ALT 291 H Alkaline Phosphatase 62 Total Creatine Kinase Troponin I 0.29 H 0.39 H Total Protein 5.3 L D Albumin 2.5 L D Triglycerides Cholesterol LDL Cholesterol, Calc HDL Cholesterol Cholesterol/HDL Ratio Urine Color Urine Clarity Urine pH Ur Specific [place] Urine Protein Urine Glucose (UA) Urine Ketones Urine Occult Blood Urine Nitrate Urine Bilirubin Urine Urobilinogen Ur Leukocyte Esterase Urine RBC Urine WBC Ur Squamous Epith Cells Amorphous Sediment Urine Bacteria Hyaline Casts Granular Casts Urine Mucus Micro UA Comment Ur Microscopic Review Urine Culture Comments Nasal Screen MRSA (PCR) 12/12/17 12/12/17 12/12/17 09:16 09:16 12:55 WBC RBC Hgb Hct MCV MCH MCHC RDW Plt Count MPV Prelim Diff (Auto) Neut % (Auto) Lymph % (Auto) [place] % (Auto) Eos % (Auto) Baso % (Auto) Neut # (Auto) Lymph # (Auto) [place] # (Auto) Eos # (Auto) Baso # (Auto) WBC Differential Diff Scan Differential Comment Platelet Estimate Platelet Morphology PT INR APTT Puncture Site Patient Temperature O2 Saturation ABG pH ABG pCO2 ABG pO2 ABG HCO3 ABG O2 Content ABG Base Excess ABG Methemoglobin Basilio Test Hemoglobin Carboxyhemoglobin O2 Delivery Device Vent Setting Inspired O2 Critical Value Sodium Potassium Chloride Carbon Dioxide Anion Gap BUN Creatinine Estimated GFR POC Glucose 90 107 Random Glucose Lactic Acid Calcium Prot Corrected Calcium Phosphorus Magnesium Total Bilirubin AST ALT Alkaline Phosphatase Total Creatine Kinase Troponin I Total Protein Albumin Triglycerides 116 Cholesterol 117 L LDL Cholesterol, Calc 35 HDL Cholesterol 58.7 Cholesterol/HDL Ratio 1.99 Urine Color Urine Clarity Urine pH Ur Specific [place] Urine Protein Urine Glucose (UA) Urine Ketones Urine Occult Blood Urine Nitrate Urine Bilirubin Urine Urobilinogen Ur Leukocyte Esterase Urine RBC Urine WBC Ur Squamous Epith Cells Amorphous Sediment Urine Bacteria Hyaline Casts Granular Casts Urine Mucus Micro UA Comment Ur Microscopic Review Urine Culture Comments Nasal Screen MRSA (PCR) 12/12/17 12/13/17 12/13/17 17:48 00:04 03:36 WBC 7.7 RBC 3.35 L Hgb 11.4 L Hct 32.6 L MCV 97.5 MCH 34.1 H MCHC 34.9 RDW 13.3 Plt Count 128 L D MPV 9.3 Prelim Diff (Auto) Slide review pending Neut % (Auto) 73.5 H Lymph % (Auto) 20.2 [place] % (Auto) 5.2 Eos % (Auto) 0.4 Baso % (Auto) 0.7 Neut # (Auto) 5.7 Lymph # (Auto) 1.6 [place] # (Auto) 0.4 Eos # (Auto) 0.0 Baso # (Auto) 0.1 WBC Differential . Diff Scan Auto diff confirmed Differential Comment . Platelet Estimate Low L Platelet Morphology Normal PT INR APTT Puncture Site Patient Temperature O2 Saturation ABG pH ABG pCO2 ABG pO2 ABG HCO3 ABG O2 Content ABG Base Excess ABG Methemoglobin Basilio Test Hemoglobin Carboxyhemoglobin O2 Delivery Device Vent Setting Inspired O2 Critical Value Sodium Potassium Chloride Carbon Dioxide Anion Gap BUN Creatinine Estimated GFR POC Glucose 116 H 99 Random Glucose Lactic Acid Calcium Prot Corrected Calcium Phosphorus Magnesium Total Bilirubin AST ALT Alkaline Phosphatase Total Creatine Kinase Troponin I Total Protein Albumin Triglycerides Cholesterol LDL Cholesterol, Calc HDL Cholesterol Cholesterol/HDL Ratio Urine Color Urine Clarity Urine pH Ur Specific [place] Urine Protein Urine Glucose (UA) Urine Ketones Urine Occult Blood Urine Nitrate Urine Bilirubin Urine Urobilinogen Ur Leukocyte Esterase Urine RBC Urine WBC Ur Squamous Epith Cells Amorphous Sediment Urine Bacteria Hyaline Casts Granular Casts Urine Mucus Micro UA Comment Ur Microscopic Review Urine Culture Comments Nasal Screen MRSA (PCR) 12/13/17 12/13/17 03:36 05:41 WBC RBC Hgb Hct MCV MCH MCHC RDW Plt Count MPV Prelim Diff (Auto) Neut % (Auto) Lymph % (Auto) [place] % (Auto) Eos % (Auto) Baso % (Auto) Neut # (Auto) Lymph # (Auto) [place] # (Auto) Eos # (Auto) Baso # (Auto) WBC Differential Diff Scan Differential Comment Platelet Estimate Platelet Morphology PT INR APTT Puncture Site Patient Temperature O2 Saturation ABG pH ABG pCO2 ABG pO2 ABG HCO3 ABG O2 Content ABG Base Excess ABG Methemoglobin Basilio Test Hemoglobin Carboxyhemoglobin O2 Delivery Device Vent Setting Inspired O2 Critical Value Sodium 144 Potassium 3.0 L D Chloride 110 H Carbon Dioxide 24.1 Anion Gap 10 BUN 15 Creatinine 0.66 Estimated GFR Greater than 89 POC Glucose 98 Random Glucose 80 Lactic Acid Calcium 7.3 L* Prot Corrected Calcium 8.1 L Phosphorus 1.4 L Magnesium 2.3 D Total Bilirubin 0.8 AST 213 H ALT 246 H Alkaline Phosphatase 79 Total Creatine Kinase Troponin I 0.24 H Total Protein 5.6 L Albumin 2.5 L Triglycerides Cholesterol LDL Cholesterol, Calc HDL Cholesterol Cholesterol/HDL Ratio Urine Color Urine Clarity Urine pH Ur Specific [place] Urine Protein Urine Glucose (UA) Urine Ketones Urine Occult Blood Urine Nitrate Urine Bilirubin Urine Urobilinogen Ur Leukocyte Esterase Urine RBC Urine WBC Ur Squamous Epith Cells Amorphous Sediment Urine Bacteria Hyaline Casts Granular Casts Urine Mucus Micro UA Comment Ur Microscopic Review Urine Culture Comments Nasal Screen MRSA (PCR) Result Diagrams: 12/13/17 03:36 12/13/17 03:36 Microbiology: Microbiology 12/11/17 22:55 Aerobic Blood Culture - Preliminary Blood - Peripheral No growth in 2 days Anaerobic Blood Culture - Preliminary No growth in 2 days 12/11/17 23:00 Aerobic Blood Culture - Preliminary Blood - Peripheral No growth in 2 days Anaerobic Blood Culture - Preliminary No growth in 2 days 12/11/17 00:00 Gram Stain - Final Sputum - Endotracheal Imaging: Cervical Spine CT 12/12/17 00:00 CONCLUSION: No acute cervical spine abnormality is identified. Head CTA 12/12/17 00:00 CONCLUSION: 1. Negative CTA Head. Neck CTA 12/12/17 00:00 CONCLUSION: 1. Atelectatic calcifications and areas of ulceration involving the origin of the right internal carotid artery with approximate 70-80% stenosis right at the takeoff of the right ICA prior to the start of the patient's internal coronary stent. Head CT 12/12/17 12:29 CONCLUSION: 1. Subtle areas of low attenuation are now seen in the right frontal and occipital regions of concern for areas of evolving infarction. There is no hemorrhage or mass effect. . Chest X-Ray 12/13/17 06:00 CONCLUSION: Mildly increased perihilar interstitial and airspace opacities. Although nonspecific the appearance could be related to pulmonary edema in the appropriate clinical setting. Procedures: 12/11/2017-Intubation- in the field Assessment and Plan - Disease Oriented Problem List (1) Acute respiratory failure (2) Hypertension (3) Depression (4) Coronary artery disease (5) History of head and neck cancer - Symptom Scale (1) Altered mental status 0-10 Scale: Unable to quantify (2) Shortness of breath 0-10 Scale: Unable to quantify (3) Pain 0-10 Scale: Unable to quantify Pertinent Non-Medical Issues: Psychosocial: Patient was born in [place], [place]. He moved to [place] where he lived for approximately 20 years and then moved to [place] with [facility] for another approximate 20 years. Patient recently moved to [place] 5 years ago. Patient is been to his current for 48 years. They have 2 adult daughters, 8 grandchildren and great-grandchildren. 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 Spiritual: No jainism affiliation. Legal: Patient has completed healthcare surrogate and living will. (Spouse and daughter provided with copies from last hospital hospitalization) Ethical issues impacting care: None identified at this time. Important Contacts: Spouse- Evelyn Mendoza S- [phone] Daughter- Malissa Lockhart- [phone] Prognosis: Mr. 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 Patient was brought to the emergency room by EMS on was found unresponsive at home with copious oral secretions identified as tube feeding. When EMS arrived patient was found to have spontaneous respirations, palpable pulse and was hypotensive with SBP in the 90s, and decreased level of consciousness. Patient`s O2 saturation was 60% at scene, was intubated and suctioned. Clinical course complicated with acute respiratory failure. 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 Code Status: Full Code Plan: PLAN: Legal decision maker: Patient is currently intubated, sedated on mechanical ventilation. It is unknown at this time with the patient will be able to regain capacity. Patient's healthcare surrogate is his Reji Rivas and his alternate healthcare surrogate is his daughter Howard Leonardo. Goals: Aggressive. Family is hopeful at this time that patient will recover and be able to be medically extubated. Code status was addressed and family at this point wants patient to be a full code though patient`s stated that if patient would require tracheostomy placement, she most likely will not proceed with that. CODE STATUS: Full Code SYMPTOMS: * Shortness of breath: Patient most likely aspirated from tube feedings and required intubation. FIO2 currently 40% with O2 saturation in the high 90s. Patient is currently on antibiotics and duo nebs. Plan for spontaneous breathing trials. No recommendations. * Pain: Patient has history of head and neck cancer and extensive surgery to his neck. Patient c/o neck and left shoulder pain at home and is on a fentanyl patch 25 mcg every 72 hours at home. Fentanyl infusion now at 25mcg/hr. No signs of pain. Continue monitoring for symptoms of pain. * Altered mental status: Patient was found with altered mentation at home and unresponsive. Repeat Head CT on 12/12 showed right hemispheric stroke in the frontal occipital area. Currently spontaneously moving right side and LLE, RUE flaccid. Patient is sedated at time of examination. Continue with neuro checks. Palliative care will continue to follow the patient during hospital course as condition evolves, to assist patient/decision-maker with understanding of their medical conditions, weighing benefits/burdens of treatment options, for clarification of goals of treatment. Additionally will assist with any symptoms of palliative concern Attestation Attestation: To help prompt me to consider important information that might be impacting today's encounter and assessment, information from prior notes written by myself or my colleagues may have been "brought forward" into today's note. My signature on this note, however, is an attestation that I personally performed the exam, history, and/or decision-making noted today, and, unless otherwise indicated, the interactions with patient, family, and staff as well as the review of records all occurred today. I also attest that the listed assessment and stated plan reflect my best clinical judgment today based on the combination of historical information, prior notes, and today's exam/ interactions. When time spent is documented, it refers only to time spent today by the signer, or if indicated, combined time spent today by collaborating physician/nurse practitioner.
[2017-12-13] MEDS ORDERED: Aspirin 325 MG Tablet PO ONE (14:15)
--- NOTE | 2017-12-13 17:07 | MG ---
cc: Cheryl Ro MD EEG NUMBER: [id number] REFERRING: . CLINICAL HISTORY: In room 1332; with photic only 250 mcg a fentanyl, 35 mcg of Diprivan. Awake, drowsy asleep study. No other history. DESCRIPTION OF RECORD: The patient has overall slowing of background predominantly of 2-3 Hz; variable. EKG looks sinus. Some muscle movement; artifact. Hyperventilation could not be done. Overall, there is some theta frequency at times as well. Photic stimulation without any significant driving response. IMPRESSION: Moderate to severely slow background may be due to medicine effect and to some part, encephalopathic process but no epileptiform features. Clinical correlation. MD JAVI Everett/dontrell/shannon , 03:54 PM , 03:59 PM
--- NOTE | 2017-12-13 18:00 | ECHRPT ---
Indication: CVA/TIA CONCLUSIONS Normal left ventricular size. Wall thickness is normal. No regional wall motion abnormalities are present. Trace mitral valve regurgitation. The left ventricular systolic function is normal with an estimated ejection fraction in the range of 60-65%. Aortic valve sclerosis is present. [id number] aortic valve regurgitation. There is trace tricuspid valve regurgitation. The estimated pulmonary arterial pressure is 32 mmHg. Trivial pulmonary valve regurgitation. BP: / HR: Rhythm: Sinus Technical Quality:Fair FINDINGS LEFT VENTRICLE Normal left ventricular size. Wall thickness is normal. The left ventricular systolic function is normal with an estimated ejection fraction in the range of 60-65%. No regional wall motion abnormalities are present. RIGHT VENTRICLE Normal right ventricular size and systolic function. LEFT ATRIUM The left atrial size is normal. RIGHT ATRIUM The right atrial size is normal. ATRIAL SEPTUM Normal atrial septal thickness without atrial level shunting by limited color doppler interrogation. AORTA The aortic root and proximal ascending aorta are normal in size on limited imaging. MITRAL VALVE Structurally normal mitral valve. Trace mitral valve regurgitation. AORTIC VALVE Trileaflet aortic valve. Aortic valve sclerosis is present. [id number] aortic valve regurgitation. TRICUSPID VALVE Structurally normal tricuspid valve. There is trace tricuspid valve regurgitation. The estimated pulmonary arterial pressure is 32 mmHg. PULMONARY VALVE Trivial pulmonary valve regurgitation. VESSELS The inferior vena cava is normal in size. PERICARDIUM No pericardial effusion. Denny Serra MD, FACC (Electronically Signed) Final Date:13 December 2017 17:59
--- NOTE | 2017-12-13 18:43 | P.PNNEU ---
Subjective Subjective Comments: no new neurologic sx Active Medications: Active Medications Acetaminophen (Tylenol) 650 mg PO Q6H PRN PRN Reason: PAIN 1-10 AND/OR FEVER >101F Al Hydroxide/Mg Hydroxide (Milk Of Magncas Liq) 30 ml PO Q12H PRN PRN Reason: Mild Constipation Albuterol (Duoneb Neb ([facility])) 1 ampul NEB Q6HR NEB [facility] Last Admin: 12/13/17 15:05 Dose: 1 ampul Albuterol (Albuterol Neb (Prn)) 2.5 mg NEB Q2HR NEB PRN PRN Reason: DYSPNEA Amlodipine Besylate (Norvasc) 10 mg PO DAILY [facility] Last Admin: 12/13/17 09:43 Dose: 10 mg Artificial Tears (Genteal Severe Dry Eye Relief 0.3% Opth Gel) 1 drops EACH EYE BID [facility] Last Admin: 12/13/17 09:44 Dose: 1 drops Aspirin (Aspirin) 325 mg PO DAILY [facility] Bisacodyl (Dulcolax Supp) 10 mg RECTAL DAILY PRN PRN Reason: SEVERE CONSITIPATION Chlorhexidine Gluconate (Peridex 0.12% Oral Kit) 15 ml OROPHARYNG BID@0800, 2000 [facility] Last Admin: 12/13/17 09:44 Dose: 15 ml Chlorhexidine Gluconate (Chlorhexidine 2% Cloth) 3 pack TOPICAL DAILY@0400 [facility] Stop: 12/17/17 03:59 Last Admin: 12/13/17 04:04 Dose: 3 pack Chlorhexidine Gluconate (Chlorhexidine 2% Cloth) 3 pack TOPICAL DAILY@0400 PRN PRN Reason: Extra cloth needed Stop: 12/17/17 03:59 Clonazepam (Klonopin) 1 mg PO TID [facility] Last Admin: 12/13/17 18:37 Dose: 1 mg Dextrose (D50w Vial) 50 ml IV.PUSH UNSCH PRN PRN Reason: PER HYPOGLYCEMIA PROTOCOL Enoxaparin Sodium (Lovenox Inj) 40 mg SQ Q24H [facility] Last Admin: 12/12/17 23:05 Dose: 40 mg Famotidine (Pepcid Pf Inj) 20 mg IV.PUSH Q12HR [facility] Last Admin: 12/13/17 09:43 Dose: 20 mg Glucagon (Glucagon Inj) 1 mg OTHER PRN PRN PRN Reason: for Hypoglycemia Protocol Sodium Chloride (Ns Inj) 1,000 mls @ 0 mls/hr IV.SIG BOLUS HEATHER Propofol (Diprivan 1000 Mg/100 Ml Inj) 1,000 mg in 100 mls @ 2.722 mls/hr IV.CONT TITRATE PRN; Protocol PRN Reason: Per Protocol Last Admin: 12/13/17 18:37 Dose: 40 mcg/kg/min, 21.77 mls/hr Sodium Chloride (Ns Inj) 1,000 mls @ 84 mls/hr IV.CONT .[id number] [facility]ATHER Last Admin: 12/13/17 12:39 Dose: Not Given Fentanyl (Fentanyl 10 Mcg/Ml Premix Drip) 2,500 mcg in 250 mls @ 5 mls/hr IV.SIG TITRATE PRN; Protocol PRN Reason: Per Protocol Last Titration: 12/13/17 10:25 Dose: 25 mcg/hr, 2.5 mls/hr Midazolam HCl (Versed Inj) 50 mg in 50 mls @ 2 mls/hr IV.CONT TITRATE PRN; Protocol PRN Reason: Per Protocol Last Titration: 12/12/17 13:45 Dose: 0 mg/hr, 0 mls/hr Sodium Chloride (Ns Inj) 1,000 mls @ 0 mls/hr IV.SIG BOLUS HEATHER Stop: 12/14/17 02:51 Last Infusion: 12/12/17 06:51 Dose: Infused Magnesium Sulfate Inj 4 gm/ (Sodium Chloride) 100 mls @ 50 mls/hr IV.SIG UNSCH PRN PRN Reason: For Magnesium 0.9 - 1.1 mg/dL Magnesium Sulfate Inj 2 gm/ (Sodium Chloride) 100 mls @ 50 mls/hr IV.SIG UNSCH PRN PRN Reason: For Magnesium 1.2 - 1.6 mg/dL Last Infusion: 12/12/17 18:30 Dose: Infused Potassium Chloride (Kcl 40 Meq Premix Inj) 40 meq in 100 mls @ 25 mls/hr IV.SIG Q2H PRN PRN Reason: For Potassium 2.8 - 3.2 mEq/L Potassium Chloride (Kcl 20 Meq Premix Inj) 20 meq in 100 mls @ 50 mls/hr IV.SIG Q2H PRN PRN Reason: For Potassium 3.3 - 3.5 mEq/L Last Admin: 12/13/17 09:56 Dose: 50 mls/hr Potassium Chloride (Kcl 20 Meq Premix Inj) 20 meq in 100 mls @ 50 mls/hr IV.SIG Q2H PRN PRN Reason: For Potassium 2.8 - 3.2 mEq/L Last Infusion: 12/12/17 12:00 Dose: Infused Potassium Phosphate 30 mmol/ (Sodium Chloride) 260 mls @ 42 mls/hr IV.SIG UNSCH PRN PRN Reason: SEE LABEL COMMENTS Sodium Phosphate 30 mmol/ (Sodium Chloride) 260 mls @ 42 mls/hr IV.SIG UNSCH PRN PRN Reason: For Phosphorus < 2.5 mg/dL Last Infusion: 12/12/17 14:15 Dose: Infused Potassium Chloride (Kcl 40 Meq Premix Inj) 40 meq in 100 mls @ 25 mls/hr IV.SIG UNSCH PRN PRN Reason: For Potassium 3.3 - 3.5 mEq/L Piperacillin/Tazobactam/Dextrose (Zosyn 4.5 Gm Premix) 4.5 gm in 100 mls @ 200 mls/hr IV.SIG Q6H [facility] Last Admin: 12/13/17 18:38 Dose: 200 mls/hr Vancomycin HCl 1,250 mg/ (Sodium Chloride) 262.5 mls @ 250 mls/hr IV.SIG Q12H [facility] Last Admin: 12/13/17 18:38 Dose: 250 mls/hr Insulin Aspart (Novolog Insulin Correctional Sugar Inj) 0 unit SQ Q6HR HEATHER; Protocol Last Admin: 12/13/17 13:38 Dose: Not Given Lactulose (Lactulose Liq) 30 ml PO DAILY PRN PRN Reason: SEVERE CONSITIPATION Magnesium Oxide (Mag-Ox) 800 mg PO UNSCH PRN PRN Reason: For Magnesium 1.2 - 1.6 mg/dL Metoclopramide HCl (Reglan Inj) 5 mg IV.PUSH Q6HR HEATHER; Protocol Last Admin: 12/13/17 18:38 Dose: 5 mg Mirtazapine (Remeron) 30 mg PO DAILY [facility] Last Admin: 12/13/17 09:43 Dose: 30 mg Miscellaneous Information ([facility] Ordered Lab Info) 0 each OTHER ONCE ONE Stop: 12/14/17 04:46 Ondansetron HCl (Zofran Inj) 4 mg IV.PUSH Q6H PRN PRN Reason: NAUSEA OR VOMITING Pharmacy Profile Note (Vancomycin Consult Pharmacy) 1 each OTHER UNSCH PRN PRN Reason: Pharmacy to dose Potassium Bicarb/Potassium Chloride (K-Lyte Cl Eff) 50 meq PO UNSCH PRN PRN Reason: For Potassium 3.3 - 3.5 mEq/L Potassium Phosphate (K-Phos Original) 2,000 mg PO Q4H PRN PRN Reason: Phosphorus Less Than 2.5 mg/dL Potassium Phosphate (K-Phos Original) 2,000 mg PO UNSCH PRN PRN Reason: SEE LABEL COMMENTS Senna/Docusate Sodium (Ami-Colace) 1 tab PO BID [facility] Last Admin: 12/13/17 09:43 Dose: 1 tab Sennosides (Senokot) 17.2 mg PO Q12H PRN PRN Reason: Moderate Constipation Sodium Chloride (Ns Flush) 2 ml IV.FLUSH BID [facility] Last Admin: 12/13/17 09:44 Dose: 2 ml Sodium Chloride (Ns Flush) 2 ml IV.FLUSH PRN PRN PRN Reason: FLUSH AFTER USING IV ACCESS Allergies/Adverse Reactions: Allergies Allergy/AdvReac Type Severity Reaction Status Date / Time morphine Allergy Intermediate Confusion Verified 03/04/17 21:32 HALLICINATES hydromorphone AdvReac Intermediate Confusion Verified 12/11/17 22:23 Physical Exam Vital signs: Vital Signs 12/12/17 19:31 12/12/17 20:00 12/12/17 21:00 Temperature 98.5 F Pulse Rate 64 66 78 Respiratory Rate 16 21 Blood Pressure 166/77 H Pulse Oximetry 100 100 12/12/17 22:00 12/13/17 00:00 12/13/17 00:24 Temperature 98.7 F Pulse Rate 64 64 Respiratory Rate 16 16 Blood Pressure 134/66 Pulse Oximetry 100 12/13/17 02:00 12/13/17 03:46 12/13/17 04:00 Temperature 98.1 F Pulse Rate 62 61 60 Respiratory Rate 16 16 Blood Pressure 147/66 H Pulse Oximetry 100 98 12/13/17 06:00 12/13/17 07:51 12/13/17 08:00 Temperature 98.1 F Pulse Rate 62 72 Respiratory Rate 22 14 Blood Pressure 149/73 H Pulse Oximetry 99 100 12/13/17 09:25 12/13/17 10:00 12/13/17 10:36 Temperature Pulse Rate 66 70 Respiratory Rate 16 17 Blood Pressure Pulse Oximetry 12/13/17 11:14 12/13/17 12:00 12/13/17 15:06 Temperature Pulse Rate 87 82 Respiratory Rate 18 17 Blood Pressure Pulse Oximetry 100 100 Intake & Output 12/12/17 12/13/17 12/13/17 18:59 06:59 18:59 Intake Total 1612.5 / 1612.5 550 / 550 Output Total 625 / 625 1800 / 1800 Balance 1367.5 / 1367.5 -187.5 / -187.5 550 / 550 Weight 88 kg Intake: IV 161.5 / 161.5 550 / 550 Versed Inj 50 mg In 50 ml @ 2 20 / 20 MG/HR 2 mls/hr IV.CONT TITRATE PRN Rx#:[id number] Diprivan 1000 mg/100 ml Inj 1, 200 / 200 200 / 200 100 / 100 000 mg In 100 ml @ 5 MCG/KG/MIN 2.722 mls/hr IV.CONT TITRATE PRN Rx#:[id number] NS Inj 1,000 ML @ 84 mls/hr IV. 300 / 300 700 / 700 CONT .[id number] HEATHER Rx#:[id number] Magnesium Sulfate Inj 2 GM In 200 / 200 NS Inj 96 ML @ 50 mls/hr IV.SIG UNSCH PRN Rx#:[id number] Zosyn 4.5 GM Premix 4.5 gm In 200 / 200 200 / 200 100 / 100 100 ml @ 200 mls/hr IV.SIG Q6H HEATHER Rx#:[id number] KCl 20 mEq Premix Inj 20 meq In 300 / 300 100 / 100 100 ml @ 50 mls/hr IV.SIG Q2H PRN Rx#:[id number] Sodium Phosphate Inj 30 MMOL In 260 / 260 NS Inj 250 ML @ 42 mls/hr IV. SIG UNSCH PRN Rx#:[id number] Vancomycin Inj 1,250 MG In NS 262.5 / 262.5 262.5 / 262.5 Inj 250 ML @ 250 mls/hr IV.SIG Q12H [facility]ATHER Rx#:[id number] fentaNYL 10 mcg/mL Premix Drip 250 / 250 250 / 250 250 / 250 2,500 mcg In 250 ml @ 50 MCG/HR 5 mls/hr IV.SIG TITRATE PRN Rx #:[id number] Output: Urine Amount (Catheter) 600 / 600 1750 / 1750 Indwelling Urethral Catheter 600 / 600 1750 / 1750 Gastric Drainage 25 / 25 50 / 50 Gastrostomy Tube (PEG) 25 / 25 50 / 50 Other: # Bowel Movements 0 - Routine Neurological Exam opens eyes and follow commands CN intact MOTOR 0/5 LUE and LLE. Moves RUE and RLE well - Urinary Catheter Management Indwelling Urethral Catheter Cath placed during this visit: yes Reason for continuing: Hourly intake/output Insertion date: 12/11/17 Insertion time: 00:20 Objective Radiology Results: CTA brain normal CTA neck 70-80 % stenosis with ulceration right carotid just before stent Laboratory Results - last 24 hr 12/13/17 12/13/17 12/13/17 00:04 03:36 03:36 WBC 7.7 RBC 3.35 L Hgb 11.4 L Hct 32.6 L MCV 97.5 MCH 34.1 H MCHC 34.9 RDW 13.3 Plt Count 128 L D MPV 9.3 Prelim Diff (Auto) Slide review pending Neut % (Auto) 73.5 H Lymph % (Auto) 20.2 Greer % (Auto) 5.2 Eos % (Auto) 0.4 Baso % (Auto) 0.7 Neut # (Auto) 5.7 Lymph # (Auto) 1.6 Greer # (Auto) 0.4 Eos # (Auto) 0.0 Baso # (Auto) 0.1 WBC Differential . Diff Scan Auto diff confirmed Differential Comment . Platelet Estimate Low L Platelet Morphology Normal Sodium 144 Potassium 3.0 L D Chloride 110 H Carbon Dioxide 24.1 Anion Gap 10 BUN 15 Creatinine 0.66 Estimated GFR Greater than 89 POC Glucose 99 Random Glucose 80 Calcium 7.3 L* Prot Corrected Calcium 8.1 L Phosphorus 1.4 L Magnesium 2.3 D Total Bilirubin 0.8 AST 213 H ALT 246 H Alkaline Phosphatase 79 Troponin I 0.24 H Total Protein 5.6 L Albumin 2.5 L 12/13/17 12/13/17 05:41 13:24 WBC RBC Hgb Hct MCV MCH MCHC RDW Plt Count MPV Prelim Diff (Auto) Neut % (Auto) Lymph % (Auto) Greer % (Auto) Eos % (Auto) Baso % (Auto) Neut # (Auto) Lymph # (Auto) Greer # (Auto) Eos # (Auto) Baso # (Auto) WBC Differential Diff Scan Differential Comment Platelet Estimate Platelet Morphology Sodium Potassium Chloride Carbon Dioxide Anion Gap BUN Creatinine Estimated GFR POC Glucose 98 90 Random Glucose Calcium Prot Corrected Calcium Phosphorus Magnesium Total Bilirubin AST ALT Alkaline Phosphatase Troponin I Total Protein Albumin Microbiology 12/11/17 Unknown Gram Stain - Final Sputum - Endotracheal Sputum Culture - Preliminary gram negative rods 12/11/17 23:00 Urine Culture - Preliminary Catheterized Urine No growth in 24 hours 12/11/17 22:55 Aerobic Blood Culture - Preliminary Blood - Peripheral No growth in 2 days Anaerobic Blood Culture - Preliminary No growth in 2 days 12/11/17 23:00 Aerobic Blood Culture - Preliminary Blood - Peripheral No growth in 2 days Anaerobic Blood Culture - Preliminary No growth in 2 days Review/Management - Diagnosis (1) CVA (cerebral vascular accident) Code(s): I63.9 - Cerebral infarction, unspecified Status: Acute Current Visit: Yes - Review/Management Plan: add plavix to asa vascular surgery consult regarding right carotid stenosis
--- NOTE | 2017-12-13 21:20 | MB ---
cc: Garth Reese MD DATE: 12/13/2017 CONSULTING PHYSICIAN: Garth Reese MD, Vascular Surgery. REASON FOR CONSULTATION: Right hemispheric stroke and bilateral carotid stents. HISTORY OF PRESENT ILLNESS: This 67-year-old male presents to the hospital unresponsive. Apparently, the patient lost consciousness at some level at home. He was found hypotensive with large amount of tube feedings around him. The patient has had a history of neck cancer and somewhere in the past received bilateral carotid stents. Now, he is found to have right hemispheric frontoparietal stroke with recurrent carotid stenosis. The question arises what to do with this as far as vascular implications are concerned. PAST MEDICAL HISTORY: Head and neck cancer for which the patient received radiation, bilateral carotid stenosis, hypertension, laryngeal and lung cancer. PAST SURGICAL HISTORY: Appendectomy, bilateral endovascular carotid stent placements and PEG tubes. SOCIAL HISTORY: The patient smokes every day, about 2 packs. Drinks rarely. PHYSICAL EXAMINATION: GENERAL: Reveals a 67-year-old male appearing much older than his actual age, on the ventilator, not answering any questions. Sedated, so all the information is gathered from the chart HEENT: Normocephalic. No trauma to the head. Pupils are equal and reactive. Extraocular muscles appear to be intact. The patient does not have a facial droop, but at this time, he is intubated and ventilated, it is hard to tell. NECK: Bilateral carotid pulses, bilateral carotid bruits. Patient with very thin neck, and carotid artery is actually palpable. CHEST: Bilateral breath sounds, decreased in both lung scott. The patient has severe chronic obstructive pulmonary disease. HEART: Regular rhythm. ABDOMEN: Soft. PEG tube in place. EXTREMITIES: Thin, atrophic, but within normal limits with good proximal and distal pulses. No vascular deficit. NEUROLOGIC: Cannot be performed at this time, but I am told that the patient has weakness in his left upper extremity. IMPRESSION AND RECOMMENDATIONS: I reviewed the laboratory and diagnostic procedures. This gentleman indeed has a right hemispheric stroke by the clinical findings. The initial head CT on 12/11/2017 does not show a stroke; however, repeat CT scan on 12/12/2017 reveals a right frontal occipital ischemic infarction, which is consistent with the patient's findings. The CTA of the neck, on the other hand, reveals bilateral carotid stents which were passed at some point in the past, and about 80% stenosis on the right. This is quite the problem at this time. There is an ulcerated plaque present in the area. Removing the stents is almost impossible, and doing the surgery on top of the stents with the radiated neck would be unwise. Once the patient has recovered sufficiently, we will do a carotid angiogram and see where we can put the next stent underneath this one to push the plaque to the side and thereby also treat the ulceration. This may or may not work, but certainly should be attempted. At this point, I will leave the patient alone until probably next week or so, and then attempt a stent on the right. I will continue to follow patient. Thank you very much for the referral. MD MICHELLE Harrington/mary , 08:31 PM , 08:42 PM
[2017-12-14] MEDS: Sod Chloride 0.9% Inj 1,000 ML IV.CONT SCH ×3 (00:08→19:31)
[2017-12-14] MEDS: Oral Hygiene Kit OROPHARYNG SCH ×5 (00:08→23:56)
[2017-12-14] MEDS: Insulin NovoLOG Aspart Correctional Sugar Inj SQ SCH ×5 (00:27→23:56)
[2017-12-14] MEDS: Enoxaparin Inj 40 MG/0.4 ML Syringe SQ SCH ×2 (00:35→23:55)
[2017-12-14] MEDS: Piperacil/Tazo 4.5 GM Premix 4.5 GM/100 ML BAG IV.SIG SCH ×5 (00:39→23:55)
[2017-12-14] MEDS: Potassium Chlor 20 mEq Premix 20 MEQ/100 ML PIGGYBACK IV.SIG PRN (01:34)
[2017-12-14] MEDS: Propofol 1000 mg/100 ml Inj 1,000 MG/100 ML BOTTLE IV.CONT PRN ×2 (03:07→06:43)
[2017-12-14] MEDS: Chlorhexidine Gluconate 2% 1 Pack (2 Cloths) TOPICAL SCH (04:10)
[2017-12-14] MEDS ORDERED: Pharmacy Ordered Lab Info OTHER ONE (04:45)
[2017-12-14] MEDS: Vancomycin Inj 1,250 MG in Sodium Chlor 0.9% Inj 250 ML IV.SIG SCH (06:51)
[2017-12-14] MEDS: Mirtazapine 15 MG Tablet PO SCH (08:47)
[2017-12-14] MEDS: Aspirin 325 MG Tablet PO SCH (08:47)
[2017-12-14] MEDS: Famotidine PF Inj 20 MG/2 ML Vial IV.PUSH SCH ×2 (08:48→20:03)
[2017-12-14] MEDS: clonazePAM 1 MG Tablet PO SCH ×3 (08:48→17:40)
[2017-12-14] MEDS: Senna/Docusate Sodium 8.6/50 MG Tablet PO SCH ×2 (08:48→20:03)
[2017-12-14] MEDS: amLODIPine 10 MG Tablet PO SCH (08:48)
[2017-12-14] MEDS: Chlorhexidine 0.12% Oral Kit 15 ML UDC OROPHARYNG SCH ×2 (08:48→20:02)
[2017-12-14] MEDS: Hypromellose 0.3% Opth Gel 10 GM Bottle EACH EYE SCH ×2 (09:00→20:03)
[2017-12-14] MEDS: Potassium Chloride 25 MEQ Effervescent Tablet PO PRN (10:01)
--- NOTE | 2017-12-14 10:07 | P.PNCC ---
Subjective Subjective Remarks/Hospital Course: 67-year-old male with past medical history of head and neck cancer presents from home after being found unresponsive. Patient was found by EMS to have spontaneous respirations palpable pulse and blood pressure but markedly decreased level of consciousness, hypotensive with large amount of tube feeding contents in the oral cavity. Patient has history of head neck cancer and takes no oral medications takes all medications and feedings through PEG tube. Patient was last seen normal approximately at breakfast time on Tuesday and then family members found him unresponsive. Unknown downtime. Upon EMS arrival patient was assessed and suctioned and initial O2 saturations were 60% patient was placed on supplemental oxygen with improved ventilations and then subsequently intubated with a 7.5 endotracheal tube. Per EMS copious amounts of suctioning was performed and large amounts of tube feeding were suctioned. Patient presents now with endotracheal tube in place bilateral breath sounds to auscultation with bag valve ventilation and normotensive upon EMS presentation however initial blood pressure here mildly hypotensive with systolic pressure of 90 mmHg. Patient remains unresponsive. Family members not available. Patient with known allergies to narcotics. No other medical history is available. Subjective 12/12: Afebrile. Currently on propofol and fentanyl drips. Not really moving his left upper lower extremity. CT brain with CT angiogram brain ordered. Cannot do MRI due to retained metal metal in eye according to . 12/13: Sedated, arousable, orally intubated on mechanical ventilation 12/14: Sedated, arousable, orally intubated on mechanical ventilation. Objective Vital Signs / I&O: Vital Signs 12/13/17 10:36 12/13/17 11:14 12/13/17 12:00 Temperature 99.0 F Pulse Rate 68 Respiratory Rate 17 18 16 Blood Pressure 140/69 Pulse Oximetry 100 100 12/13/17 14:00 12/13/17 15:06 12/13/17 16:00 Temperature 98.7 F Pulse Rate 87 82 82 Respiratory Rate 17 14 Blood Pressure 148/70 H Pulse Oximetry 100 100 12/13/17 18:00 12/13/17 20:00 12/13/17 22:00 Temperature 97.8 F Pulse Rate 72 62 65 Respiratory Rate 16 Blood Pressure 101/55 L Pulse Oximetry 98 12/14/17 00:00 12/14/17 01:18 12/14/17 02:00 Temperature 97.8 F Pulse Rate 58 L 55 L Respiratory Rate 16 16 Blood Pressure 129/63 Pulse Oximetry 100 98 12/14/17 03:41 12/14/17 04:00 12/14/17 04:12 Temperature 97.7 F Pulse Rate 50 L 56 L Respiratory Rate 16 16 16 Blood Pressure 122/65 Pulse Oximetry 100 98 12/14/17 06:00 18 08:00 12/14/17 08:21 Temperature 97.8 F Pulse Rate 66 67 58 L Respiratory Rate 19 16 Blood Pressure 150/75 H Pulse Oximetry 100 98 Intake & Output 12/13/17 12/14/17 12/14/17 18:59 06:59 18:59 Intake Total 1650 / 1650 1087.5 / 1087.5 762.5 / 762.5 Output Total 5100 / 5100 2250 / 2250 Balance -3450 / -3450 -1162.5 / -1162.5 762.5 / 762.5 Weight 82 kg Intake: IV 1650 / 1650 1062.5 / 1062.5 762.5 / 762.5 Diprivan 1000 mg/100 ml Inj 1, 100 / 100 300 / 300 000 mg In 100 ml @ 5 MCG/KG/MIN 2.722 mls/hr IV.CONT TITRATE PRN Rx#:[id number] NS Inj 1,000 ML @ 84 mls/hr IV. 1000 / 1000 500 / 500 CONT .[id number] HEATHER Rx#:[id number] Zosyn 4.5 GM Premix 4.5 gm In 100 / 100 300 / 300 100 ml @ 200 mls/hr IV.SIG Q6H HEATHER Rx#:[id number] KCl 20 mEq Premix Inj 20 meq In 200 / 200 200 / 200 100 ml @ 50 mls/hr IV.SIG Q2H PRN Rx#:[id number] Vancomycin Inj 1,250 MG In NS 262.5 / 262.5 262.5 / 262.5 Inj 250 ML @ 250 mls/hr IV.SIG Q12H [facility]ATHER Rx#:[id number] fentaNYL 10 mcg/mL Premix Drip 250 / 250 2,500 mcg In 250 ml @ 50 MCG/HR 5 mls/hr IV.SIG TITRATE PRN Rx #:[id number] Tube Feeding 25 / 25 Output: Urine Amount (Catheter) 5100 / 5100 2250 / 2250 Indwelling Urethral Catheter 5100 / 5100 2250 / 2250 Gastric Drainage 0 / 0 Gastrostomy Tube (PEG) 0 / 0 Other: # Bowel Movements 0 Result Diagrams: 12/13/17 03:36 12/14/17 08:02 Objective Remarks: GENERAL: 67-year-old male currently orotracheally intubated SKIN: Warm and dry. HEAD: Atraumatic. Normocephalic about 3 mm bilaterally and reactive. EYES: Pupils equal and round. No scleral icterus. No injection or drainage. ENT: No nasal bleeding or discharge. Mucous membranes pink and moist. NECK: Trachea midline. No JVD. Scarring from prior neck dissection noted CARDIOVASCULAR: Regular rate and rhythm. S1, S2 no S4. Without murmur RESPIRATORY: No accessory muscle use. Clear to auscultation. Breath sounds equal bilaterally. GASTROINTESTINAL: Abdomen soft, non-tender, nondistended. Hypoactive bowel sounds appreciated.. G-tube in the left upper quadrant is clean dry and intact MUSCULOSKELETAL: Extremities without significant peripheral edema. No obvious deformities. NEUROLOGICAL: Cranial nerves II through XII appear to be grossly intact. Positive gag and cough. Because of corneal reflex. Strength 5 out of 5 right upper and lower extremity. 1 out of 5 left upper extremity. 3-5 left lower extremity. Assessment and Plan - Assessment and Plan Plan: Neuro/Psych: Acute encephalopathy Chronic benzodiazepine use with clonazepam 1 mg 3 times daily Chronic opioid use with fentanyl patches 25 mcg every 72 hours/found with 3 fentanyl patches on him Depression disorder NOS Currently a propofol drip at 40 mcg/kg/min/fentanyl drip at 250 mcg an hour for sedation/analgesia while intubated Goal of RASS -[address] brain on admission revealed no acute intracranial findings Unable to do MRI brain secondary to retained metal and I according to . Urgent CT brain with and without contrast/CT angiogram of the head and neck with history of carotid stenosis and left upper extremity weakness on examination CTA revealed right carotid artery stenosis proximal to internal carotid artery stent. Vascular surgery consult requested by neurology. On aspirin, Plavix added per neurology. CV: Elevated troponin Essential hypertension Coronary artery disease Bilateral carotid artery stents Troponin peaked at 0.39. EKG revealed no acute ST changes or bundle-branch blocks Continue amlodipine 10 mg daily/home medication for hypertension Limited 2D echocardiogram. Resp: Acute respiratory failure secondary to aspiration PRVC ventilation Albuterol/ipratropium aerosols every 6 hours with albuterol aerosols every 2 hours as needed for dyspnea Ventilator bundle CPAP trial/spontaneous breathing trials to decide extubation GI: Continue tube feedings with Jevity 1.5 goal 55 cc an hour with [employer] protein 1 packet 3 times daily Famotidine for GI prophylaxis Docusate sodium/senna 1 tablet twice daily for bowel regimen : Maintain Salas catheter Endo: SSI with Accu-Cheks every 6 hours to maintain euglycemia Renal: Monitor urine output Accurate I's and O's Creatinine currently within normal limits Heme: ID: Received 1 dose of Pipracil/tazobactam and vancomycin ED. Continue Blood cultures 2, sputum and urine on admission no growth to date MSK: PT evaluate and treat FEN: Hypomagnesia Hypophosphatemia Hypocalcemia Replace electrolytes as clinically indicated per ICU electrolyte protocol Access -Utilize peripheral IV. Central and if indicated Prophylaxis -GI -famotidine -DVT -SCD/enoxaparin 35 minutes critical care time follow-up
[2017-12-14] MEDS: Dexmedetomidine Inj 200 MCG in Sodium Chlor 0.9% Inj 48 ML IV.CONT PRN ×3 (15:31→22:51)
[2017-12-14] MEDS ORDERED: QUEtiapine 100 MG Tablet G-TUBE ONE (16:32)
[2017-12-14] MEDS: Vancomycin Inj 1,500 MG in Sodium Chlor 0.9% Inj 500 ML IV.SIG SCH (18:17)
[2017-12-15] MEDS: Sod Chloride 0.9% Inj 1,000 ML IV.CONT SCH (00:21)
[2017-12-15] MEDS: Insulin NovoLOG Aspart Correctional Sugar Inj SQ SCH ×4 (01:37→17:57)
[2017-12-15] MEDS: Oral Hygiene Kit OROPHARYNG SCH ×3 (03:16→17:56)
[2017-12-15] MEDS: Chlorhexidine Gluconate 2% 1 Pack (2 Cloths) TOPICAL SCH (03:16)
[2017-12-15 05:28] LABS: Blood Urea Nitrogen 6 mg/dL (7-18); Glomerular Filtration Rate Greater Than 89 mL/min (>89)
[2017-12-15] MEDS: Piperacil/Tazo 4.5 GM Premix 4.5 GM/100 ML BAG IV.SIG SCH ×4 (05:43→23:57)
[2017-12-15] MEDS: Vancomycin Inj 1,500 MG in Sodium Chlor 0.9% Inj 500 ML IV.SIG SCH (05:44)
[2017-12-15] MEDS: Dexmedetomidine Inj 200 MCG in Sodium Chlor 0.9% Inj 48 ML IV.CONT PRN (05:48)
[2017-12-15] MEDS: clonazePAM 1 MG Tablet PO SCH ×3 (09:15→17:56)
[2017-12-15] MEDS: Mirtazapine 15 MG Tablet PO SCH (09:15)
[2017-12-15] MEDS: Famotidine PF Inj 20 MG/2 ML Vial IV.PUSH SCH ×2 (09:15→20:08)
[2017-12-15] MEDS: amLODIPine 10 MG Tablet PO SCH (09:16)
[2017-12-15] MEDS: Aspirin 325 MG Tablet PO SCH (09:16)
[2017-12-15] MEDS: Senna/Docusate Sodium 8.6/50 MG Tablet PO SCH ×2 (09:16→20:10)
[2017-12-15] MEDS: Hypromellose 0.3% Opth Gel 10 GM Bottle EACH EYE SCH ×2 (09:43→20:09)
[2017-12-15] MEDS: Chlorhexidine 0.12% Oral Kit 15 ML UDC OROPHARYNG SCH ×2 (10:34→20:09)
--- NOTE | 2017-12-15 10:58 | P.PNCC ---
Subjective Subjective Remarks/Hospital Course: 67-year-old male with past medical history of head and neck cancer presents from home after being found unresponsive. Patient was found by EMS to have spontaneous respirations palpable pulse and blood pressure but markedly decreased level of consciousness, hypotensive with large amount of tube feeding contents in the oral cavity. Patient has history of head neck cancer and takes no oral medications takes all medications and feedings through PEG tube. Patient was last seen normal approximately at breakfast time on Tuesday and then family members found him unresponsive. Unknown downtime. Upon EMS arrival patient was assessed and suctioned and initial O2 saturations were 60% patient was placed on supplemental oxygen with improved ventilations and then subsequently intubated with a 7.5 endotracheal tube. Per EMS copious amounts of suctioning was performed and large amounts of tube feeding were suctioned. Patient presents now with endotracheal tube in place bilateral breath sounds to auscultation with bag valve ventilation and normotensive upon EMS presentation however initial blood pressure here mildly hypotensive with systolic pressure of 90 mmHg. Patient remains unresponsive. Family members not available. Patient with known allergies to narcotics. No other medical history is available. Subjective 12/12: Afebrile. Currently on propofol and fentanyl drips. Not really moving his left upper lower extremity. CT brain with CT angiogram brain ordered. Cannot do MRI due to retained metal metal in eye according to . 12/13: Sedated, arousable, orally intubated on mechanical ventilation 12/14: Sedated, arousable, orally intubated on mechanical ventilation. 12/15: Extubated yesterday, on nasal cannula tolerating well. Precedex to be titrated off this morning. Fentanyl patch resumed yesterday. Patient is awake and alert, knows he is in the hospital. He recognizes his family members. Minimal weakness on the left side. Moving right side well. Tolerating PEG feeds. Objective Vital Signs / I&O: Vital Signs 12/14/17 11:41 12/14/17 12:00 12/14/17 16:00 Temperature 98.3 F 98.3 F Pulse Rate 79 104 H Respiratory Rate 10 L 15 15 Blood Pressure 147/75 H 157/71 H Pulse Oximetry 100 94 L 12/14/17 19:28 12/14/17 20:00 12/14/17 20:53 Temperature 98.7 F Pulse Rate 69 66 68 Respiratory Rate 17 21 Blood Pressure 125/65 Pulse Oximetry 95 12/14/17 22:00 12/15/17 00:00 12/15/17 02:00 Temperature 98.0 F Pulse Rate 80 75 65 Respiratory Rate 16 Blood Pressure 121/65 Pulse Oximetry 94 L 12/15/17 04:00 12/15/17 04:11 12/15/17 05:59 Temperature 98.4 F Pulse Rate 76 79 68 Respiratory Rate 17 19 Blood Pressure 142/74 H Pulse Oximetry 92 L 12/15/17 08:00 12/15/17 08:39 Temperature 97.8 F Pulse Rate 78 71 Respiratory Rate 23 19 Blood Pressure 141/73 H Pulse Oximetry Intake & Output 12/14/17 12/15/17 12/15/17 18:59 06:59 18:59 Intake Total 2016. / 2500 / 2500 1115 / 1115 Output Total 2350 / 2350 3000 / 3000 Balance -332.5 / -332.5 -500 / -500 111 / 1115 Weight 77.2 kg Intake: IV 1012.5 / 1012.5 1965 / 1965 1115 / 1115 Precedex Inj 200 MCG In NS Inj 50 / 50 100 / 100 48 ML @ 0.2 MCG/KG/HR 4.1 mls/ hr IV.CONT TITRATE PRN Rx#: [id number] NS Inj 1,000 ML @ 84 mls/hr IV. 500 / 500 1000 / 1000 600 / 600 CONT .[id number] [facility] Rx#:[id number] Zosyn 4.5 GM Premix 4.5 gm In 200 / 200 100 / 100 100 ml @ 200 mls/hr IV.SIG Q6H [facility] Rx#:[id number] Vancomycin Inj 1,250 MG In NS 262.5 / 262.5 Inj 250 ML @ 250 mls/hr IV.SIG Q12H [facility] Rx#:[id number] Vancomycin Inj 1,500 MG In NS 515 / 515 515 / 515 Inj 500 ML @ 250 mls/hr IV.SIG Q12H [facility] Rx#:[id number] fentaNYL 10 mcg/mL Premix Drip 250 / 250 2,500 mcg In 250 ml @ 25 MCG/HR 2.5 mls/hr IV.SIG TITRATE PRN Rx#:[id number] Tube Feeding 705 / 705 335 / 335 Tube Irrigant 200 / 200 Water Bolus Amount 300 / 300 Output: Urine Amount (Catheter) 2350 / 2350 3000 / 3000 Indwelling Urethral Catheter 2350 / 2350 3000 / 3000 Gastric Drainage 0 / 0 Gastrostomy Tube (PEG) 0 / 0 Other: Date of Last Bowel Movement 12/14/17 12/14/17 12/14/17 # Bowel Movements 1 Result Diagrams: 12/13/17 03:36 12/15/17 04:57 Objective Remarks: GENERAL: 67-year-old male currently laying in bed not in any acute distress on nasal cannula SKIN: Warm and dry. HEAD: Atraumatic. Normocephalic about 3 mm bilaterally and reactive. EYES: Pupils equal and round. No scleral icterus. No injection or drainage. ENT: No nasal bleeding or discharge. Mucous membranes pink and moist. NECK: Trachea midline. No JVD. Scarring from prior neck dissection noted CARDIOVASCULAR: Regular rate and rhythm. S1, S2 no S4. Without murmur RESPIRATORY: No accessory muscle use. Clear to auscultation. Breath sounds equal bilaterally. GASTROINTESTINAL: Abdomen soft, non-tender, nondistended. Hypoactive bowel sounds appreciated.. G-tube in the left upper quadrant is clean dry and intact MUSCULOSKELETAL: Extremities without significant peripheral edema. No obvious deformities. NEUROLOGICAL: Cranial nerves II through XII appear to be grossly intact. Strength 5 out of 5 right upper and lower extremity. 3 out of 5 left upper extremity. 4-5 left lower extremity. Assessment and Plan - Assessment and Plan Plan: Neuro/Psych: Acute encephalopathy Chronic benzodiazepine use with clonazepam 1 mg 3 times daily Chronic opioid use with fentanyl patches 25 mcg every 72 hours/found with 3 fentanyl patches on him Depression disorder NOS Precedex titrated off. Fentanyl patch 25 mcg/h home dose. Seroquel 50 mg every 12 hourly as needed for agitation. CT brain on admission revealed no acute intracranial findings Unable to do MRI brain secondary to retained metal and I according to . Has bilateral internal carotid artery stents. CTA revealed right carotid artery stenosis proximal to internal carotid artery stent. Vascular surgery consult requested by neurology. On aspirin, Plavix per neurology. CV: Elevated troponin Essential hypertension Coronary artery disease Bilateral carotid artery stents Troponin peaked at 0.39. EKG revealed no acute ST changes or bundle-branch blocks Continue amlodipine 10 mg daily/home medication for hypertension Limited 2D echocardiogram. Resp: Acute respiratory failure secondary to aspiration Extubated on 12/14, on nasal cannula. Albuterol/ipratropium aerosols every 6 hours with albuterol aerosols every 2 hours as needed for dyspnea Ventilator bundle GI: Continue tube feedings with Jevity 1.5 goal 55 cc an hour with [place] protein 1 packet 3 times daily Famotidine for GI prophylaxis Docusate sodium/senna 1 tablet twice daily for bowel regimen : Maintain Salas catheter Endo: SSI with Accu-Cheks every 6 hours to maintain euglycemia Renal: Monitor urine output Accurate I's and O's Creatinine currently within normal limits Heme: ID: Received 1 dose of Pipracil/tazobactam and vancomycin ED. Continue Zosyn, stop vancomycin on 12/15. Blood cultures 2 with gram-positive rods possibly contaminant Sputum cultures growing Pseudomonas/E. coli sensitive to Zosyn/Levaquin MSK: PT evaluate and treat FEN: Hypomagnesia Hypophosphatemia Hypocalcemia Replace electrolytes as clinically indicated per ICU electrolyte protocol Access -Utilize peripheral IV. Prophylaxis -GI -famotidine -DVT -SCD/enoxaparin Updated patient as well as his and daughter at bedside regarding current clinical status and plan of care and they voiced understanding and were agreeable. Patient will be transferred to hospitalist service for further medical management, critical care signing off at this time, please reconsult if needed. Further recommendations per neurology.
[2017-12-15 11:16] LABS: Albumin 2.7 g/dL (3.4-5.0); Anion Gap 11 meq/L (5-15); Calcium 8.5 mg/dL (8.5-10.1); Carbon Dioxide 22.7 meq/L (21.0-32.0); Chloride 111 meq/L (98-107); Glucose,Random 104 mg/dL (74-106); Potassium 3.1 meq/L (3.5-5.1); Sodium 145 meq/L (136-145)
[2017-12-15 11:19] LABS: Alanine Aminotransferase 184 U/L (12-78); Aspartate Aminotransferase 91 U/L (15-37)
[2017-12-15 11:25] LABS: Alkaline Phosphatase 178 U/L (45-117); Total Protein 6.5 g/dL (6.4-8.2)
[2017-12-15] MEDS: Potassium Chloride 25 MEQ Effervescent Tablet PO PRN (12:43)
[2017-12-15] MEDS: QUEtiapine 100 MG Tablet PO PRN (15:35)
[2017-12-15] MEDS: Enoxaparin Inj 40 MG/0.4 ML Syringe SQ SCH (23:57)
[2017-12-16] MEDS: Insulin NovoLOG Aspart Correctional Sugar Inj SQ SCH ×4 (03:10→18:21)
[2017-12-16] MEDS: QUEtiapine 100 MG Tablet PO PRN (03:17)
[2017-12-16] MEDS: Oral Hygiene Kit OROPHARYNG SCH ×3 (05:11→18:20)
[2017-12-16] MEDS: Chlorhexidine Gluconate 2% 1 Pack (2 Cloths) TOPICAL SCH (05:11)
[2017-12-16] MEDS: Piperacil/Tazo 4.5 GM Premix 4.5 GM/100 ML BAG IV.SIG SCH ×3 (05:13→18:20)
[2017-12-16 05:27] LABS: Baso % (Auto) 0.5 % (0.0-2.0); Eos # (Auto) 0.1 th/mm3 (0.0-0.4); Eos % (Auto) 1.1 % (0.0-4.0); Hematocrit 41.7 % (39.0-51.0); Hemoglobin 14.4 gm/dL (13.0-17.0); Lymph # (Auto) 1.1 th/mm3 (1.0-4.8); Lymph % (Auto) 13.7 % (9.0-44.0); Mean Corpuscular HGB Conc 34.6 % (32.0-36.0); Mean Corpuscular Hemoglobin 33.9 pg (27.0-34.0); Mean Corpuscular Volume 98.2 fL (80.0-100.0); Mean Platelet Volume 8.8 fL (7.0-11.0); Mono # (Auto) 0.8 th/mm3 (0.0-0.9); Mono % (Auto) 9.3 % (0.0-8.0); Neut # (Auto) 6.1 th/mm3 (1.8-7.7); Neut % (Auto) 75.4 % (16.0-70.0); Platelet Count 166 th/mm3 (150-450); Red Blood Count 4.25 mil/mm3 (4.50-5.90); Red Cell Distribution Width 13.7 % (11.6-17.2); White Blood Count 8.1 th/mm3 (4.0-11.0)
[2017-12-16] MEDS ORDERED: Pharmacy Ordered Lab Info OTHER SCH (05:45)
[2017-12-16 05:55] LABS: Albumin 3.1 g/dL (3.4-5.0); Anion Gap 10 meq/L (5-15); Aspartate Aminotransferase 146 U/L (15-37); Blood Urea Nitrogen 8 mg/dL (7-18); Calcium 9.3 mg/dL (8.5-10.1); Carbon Dioxide 24.9 meq/L (21.0-32.0); Chloride 109 meq/L (98-107); Glomerular Filtration Rate Greater Than 89 mL/min (>89); Glucose,Random 123 mg/dL (74-106); Potassium 3.2 meq/L (3.5-5.1); Sodium 144 meq/L (136-145)
[2017-12-16 06:01] LABS: Alanine Aminotransferase 230 U/L (12-78); Alkaline Phosphatase 214 U/L (45-117); Total Protein 7.7 g/dL (6.4-8.2)
[2017-12-16] MEDS: Chlorhexidine 0.12% Oral Kit 15 ML UDC OROPHARYNG SCH ×2 (07:27→21:05)
[2017-12-16] MEDS: Senna/Docusate Sodium 8.6/50 MG Tablet PO SCH ×2 (08:47→21:06)
[2017-12-16] MEDS: clonazePAM 1 MG Tablet PO SCH ×3 (08:47→18:19)
[2017-12-16] MEDS: amLODIPine 10 MG Tablet PO SCH (08:47)
[2017-12-16] MEDS: Potassium Chloride 25 MEQ Effervescent Tablet PO PRN (08:47)
[2017-12-16] MEDS: Mirtazapine 15 MG Tablet PO SCH (08:47)
[2017-12-16] MEDS: Famotidine PF Inj 20 MG/2 ML Vial IV.PUSH SCH ×2 (08:47→21:05)
[2017-12-16] MEDS: Aspirin 325 MG Tablet PO SCH (08:47)
[2017-12-16] MEDS: Potassium Chlor 20 mEq Premix 20 MEQ/100 ML PIGGYBACK IV.SIG PRN (08:48)
[2017-12-16] MEDS: Hypromellose 0.3% Opth Gel 10 GM Bottle EACH EYE SCH (08:48)
--- NOTE | 2017-12-16 09:20 | P.PNIM ---
Subjective Interval history: pt awake and alert. discussed with RN. pt was up to bedside commode yesterday. Physical Exam Vital signs: Vital Signs 12/15/17 12:00 12/15/17 16:00 12/15/17 16:57 Temperature 97.6 F 98.2 F Pulse Rate 81 95 H 95 H Respiratory Rate 18 Blood Pressure 158/75 H 144/75 H Pulse Oximetry 92 L 12/15/17 20:00 12/15/17 20:58 12/15/17 22:00 Temperature 98.6 F Pulse Rate 101 H 103 H 102 H Respiratory Rate 22 19 Blood Pressure 150/81 H Pulse Oximetry 98 99 12/16/17 00:00 12/16/17 02:00 12/16/17 04:00 Temperature 98.8 F 98.4 F Pulse Rate 97 H 102 H 102 H Respiratory Rate 22 22 Blood Pressure 168/77 H 162/80 H Pulse Oximetry 96 95 12/16/17 06:00 12/16/17 08:00 12/16/17 08:09 Temperature 97.8 F Pulse Rate 102 H 99 H 98 H Respiratory Rate 22 17 Blood Pressure 154/76 H Pulse Oximetry 97 92 L Intake & Output 12/15/17 12/16/17 12/16/17 18:59 06:59 18:59 Intake Total 1365 / 1365 1245 / 1245 400 / 400 Output Total 2675 / 2675 1400 / 1400 Balance -1310 / -1310 -155 / -155 400 / 400 Weight 75.2 kg Intake: IV 1365 / 1365 300 / 300 400 / 400 Precedex Inj 200 MCG In NS Inj 50 / 50 48 ML @ 0.2 MCG/KG/HR 4.1 mls/ hr IV.CONT TITRATE PRN Rx#: [id number] NS Inj 1,000 ML @ 84 mls/hr IV. 600 / 600 CONT .[id number] [facility] Rx#:[id number] Zosyn 4.5 GM Premix 4.5 gm In 100 / 100 300 / 300 100 ml @ 200 mls/hr IV.SIG Q6H [facility] Rx#:[id number] KCl 40 mEq Premix Inj 40 meq In 100 / 100 100 ml @ 25 mls/hr IV.SIG Q2H PRN Rx#:[id number] Vancomycin Inj 1,500 MG In NS 515 / 515 Inj 500 ML @ 250 mls/hr IV.SIG Q12H [facility] Rx#:[id number] Oral 0 / 0 0 / 0 Tube Feeding 625 / 625 Tube Irrigant 100 / 100 Other 220 / 220 Output: Urine 0 / 0 Urine Amount (Catheter) 2674 1400 / 1400 Indwelling Urethral Catheter 2674 267 1400 / 1400 Gastric Drainage 0 / 0 Gastrostomy Tube (PEG) 0 / 0 Other: Date of Last Bowel Movement 12/14/17 12/14/17 12/14/17 lying in bed following commands currently oriented lung course rhonci gary abd s/nt/peg ext no edema. lower ext restraints mccray. dark urine. - Urinary Catheter Management Indwelling Urethral Catheter Cath placed during this visit: yes Reason for continuing: Hourly intake/output Insertion date: 12/11/17 Insertion time: 00:20 Results - Labs CBC & Chem 7: 12/17/17 08:10 12/16/17 05:14 Laboratory Results - last 24 hr 12/15/17 12/15/17 12/15/17 04:57 04:57 11:45 WBC RBC Hgb Hct MCV MCH MCHC RDW Plt Count MPV Neut % (Auto) Lymph % (Auto) [place] % (Auto) Eos % (Auto) Baso % (Auto) Neut # (Auto) Lymph # (Auto) [place] # (Auto) Eos # (Auto) Baso # (Auto) WBC Differential Differential Comment Sodium 145 Cancelled Potassium 3.1 L Cancelled Chloride 111 H Cancelled Carbon Dioxide 22.7 Cancelled Anion Gap 11 Cancelled BUN 6 L Cancelled Creatinine 0.61 Cancelled Estimated GFR Greater than 89 Cancelled POC Glucose 122 H Random Glucose 104 Cancelled Calcium 8.5 Cancelled Prot Corrected Calcium Cancelled Total Bilirubin 1.3 H Cancelled AST 91 H Cancelled ALT 184 H Cancelled Alkaline Phosphatase 178 H Cancelled Total Protein 6.5 D Cancelled Albumin 2.7 L Cancelled 12/15/17 12/16/17 12/16/17 17:44 00:28 05:14 WBC RBC Hgb Hct MCV MCH MCHC RDW Plt Count MPV Neut % (Auto) Lymph % (Auto) [place] % (Auto) Eos % (Auto) Baso % (Auto) Neut # (Auto) Lymph # (Auto) [place] # (Auto) Eos # (Auto) Baso # (Auto) WBC Differential Differential Comment Sodium 144 Potassium 3.2 L Chloride 109 H Carbon Dioxide 24.9 Anion Gap 10 BUN 8 Creatinine 0.64 Estimated GFR Greater than 89 POC Glucose 117 H 107 Random Glucose 123 H Calcium 9.3 D Prot Corrected Calcium Total Bilirubin 1.4 H AST 146 H ALT 230 H Alkaline Phosphatase 214 H Total Protein 7.7 D Albumin 3.1 L 12/16/17 05:14 WBC 8.1 RBC 4.25 L Hgb 14.4 Hct 41.7 MCV 98.2 MCH 33.9 MCHC 34.6 RDW 13.7 Plt Count 166 MPV 8.8 Neut % (Auto) 75.4 H Lymph % (Auto) 13.7 [place] % (Auto) 9.3 H Eos % (Auto) 1.1 Baso % (Auto) 0.5 Neut # (Auto) 6.1 Lymph # (Auto) 1.1 [place] # (Auto) 0.8 Eos # (Auto) 0.1 Baso # (Auto) 0.0 WBC Differential . Differential Comment Auto diff final Sodium Potassium Chloride Carbon Dioxide Anion Gap BUN Creatinine Estimated GFR POC Glucose Random Glucose Calcium Prot Corrected Calcium Total Bilirubin AST ALT Alkaline Phosphatase Total Protein Albumin Microbiology 12/11/17 23:00 Blood - Peripheral Aerobic Blood Culture - Final Corynebacterium not JK 12/11/17 23:00 Blood - Peripheral Anaerobic Blood Culture - Preliminary No growth in 4 days 12/11/17 22:55 Blood - Peripheral Aerobic Blood Culture - Preliminary No growth in 4 days 12/11/17 22:55 Blood - Peripheral Anaerobic Blood Culture - Preliminary pleomorphic gram positive rods gram positive cocci Assessment and Plan - Assessment (1) Aspiration pneumonia Code(s): J69.0 - Pneumonitis due to inhalation of food and vomit Status: Acute Plan: 67-year-old male with past medical history of head and neck cancer presents from home after being found unresponsive. Patient was found by EMS to have spontaneous respirations palpable pulse and blood pressure but markedly decreased level of consciousness, hypotensive with large amount of tube feeding contents in the oral cavity. Patient has history of head neck cancer and takes no oral medications takes all medications and feedings through PEG tube. Patient was last seen normal approximately at breakfast time on Tuesday and then family members found him unresponsive. Unknown downtime. Upon EMS arrival patient was assessed and suctioned and initial O2 saturations were 60% patient was placed on supplemental oxygen with improved ventilations and then subsequently intubated with a 7.5 endotracheal tube. Per EMS copious amounts of suctioning was performed and large amounts of tube feeding were suctioned. Aspiration pneumonia Acute encephalopathy Chronic benzodiazepine use, Chronic opioid use Depression disorder Precedex titrated off. on klononpin scheduled Fentanyl patch 25 mcg/h home dose. Seroquel 50 mg every 12 hourly as needed for agitation. ct head no acute cva initially repeat CT brain shows concern for evolving cva in occipital/frontal areas. cta showed 80percent obstruction and areas of ulceration proximal to right carotid stent Unable to do MRI brain secondary to retained metal and I according to . Has bilateral internal carotid artery stents. CTA revealed right carotid artery stenosis proximal to internal carotid artery stent. Vascular surgery consult requested by neurology. On aspirin, Plavix per neurology. Vascular planning to reevaluate next week for intervention. Extubated on 12/14 cont nebs. cont zosyn for pneumonia.. continue tube feeding. jevity 1.5 55ml/hr. pt currently on reglan. ppi. mahendra PT consultation prn oral suction. dvt prophylaxis. Elevated troponin Essential hypertension Coronary artery disease Bilateral carotid artery stents Troponin peaked at 0.39. EKG revealed no acute ST changes or bundle-branch blocks Continue amlodipine 10 mg daily/home medication for hypertension Limited 2D echocardiogram. : (2) Respiratory failure Code(s): J96.90 - Respiratory failure, unspecified, unspecified whether with hypoxia or hypercapnia Status: Acute (3) Altered mental status Code(s): R41.82 - Altered mental status, unspecified Status: Acute
--- NOTE | 2017-12-16 14:38 | P.PNPAL ---
Reason for Visit Reason for visit: a. To assist with evaluation and management of symptoms including:shortness of breath, pain, altered mental status b. To assist medical decision maker(s) with: better understanding of current medical conditions; weighing benefits/burdens of medical treatment options; making medical treatment decisions. Subjective Subjective/Interval History: Follow up medically necessary for symptom management of pain, dyspnea, altered mental status. Patient has been extubated and transferred out of intensive care. He has difficulty making his needs known. Speech is slurred, mumbling and unclear. He is able to nod/shake his head if asked a yes/no question. Mental status appears to be improving per prior records. He is following commands and appears to be oriented. Previous EEG done 12/13 showed moderate to severely slow background possibly due to medicine effect without epileptiform features. He was noted to have a cerebrovascular accident on 12/12 in the right frontal occipital area. He remains with shortness of breath, but improved on 2 L nasal cannula, saturating 93%. He becomes dyspneic when getting up for use of bedside commode. Physical therapy has been requested to evaluate and treat. He remains with significant rhonchi throughout all lung scott after aspirating tube feeding prior to admission. He is unable to qualify or quantify his dyspnea. He does have a long smoking history and was a chronic smoker on admission. He also has a history of head and neck cancer status post multiple procedures with chronic dysphasia. Patient has chronic neck and left shoulder pain at home secondary to his extensive surgical history and head and neck cancer. He is chronically on a Duragesic patch at 25 mcg. Status post extubation this has been resumed and the patient at this time denies any significant discomfort. Case discussed with bedside RN. Family/Friend Interactions: No family is at bedside at this time. . Advance Directives Living Will: Copy in medical record Health Care Surrogate: Copy in medical record Durable Power of Television News Video Editor: Never completed Advance Directives Date on File: 06/18/13 Health Care Surrogate Name and Number: Reji Rivas [phone] Alt: Howard Leonardo [phone] Objective Vital Signs: Vital Signs 12/15/17 16:00 12/15/17 16:57 12/15/17 20:00 Temperature 98.2 F 98.6 F Pulse Rate 95 H 95 H 101 H Respiratory Rate 18 22 Blood Pressure 144/75 H 150/81 H Pulse Oximetry 92 L 98 12/15/17 20:58 12/15/17 22:00 12/16/17 00:00 Temperature 98.8 F Pulse Rate 103 H 102 H 97 H Respiratory Rate 19 22 Blood Pressure 168/77 H Pulse Oximetry 99 96 12/16/17 02:00 12/16/17 04:00 12/16/17 06:00 Temperature 98.4 F Pulse Rate 102 H 102 H 102 H Respiratory Rate 22 Blood Pressure 162/80 H Pulse Oximetry 95 12/16/17 08:00 12/16/17 08:09 12/16/17 11:15 Temperature 97.8 F 97.4 F L Pulse Rate 99 H 98 H 92 H Respiratory Rate 22 17 18 Blood Pressure 154/76 H 134/74 Pulse Oximetry 97 92 L 93 L Intake & Output 12/15/17 12/16/17 12/16/17 18:59 06:59 18:59 Intake Total 1365 / 1365 1245 / 1245 400 / 400 Output Total 2675 / 2675 1400 / 1400 Balance -1310 / -1310 -155 / -155 400 / 400 Weight 165 lb 12.602 oz Intake: IV 1365 / 1365 300 / 300 400 / 400 Precedex Inj 200 MCG In NS Inj 50 / 50 48 ML @ 0.2 MCG/KG/HR 4.1 mls/ hr IV.CONT TITRATE PRN Rx#: [id number] NS Inj 1,000 ML @ 84 mls/hr IV. 600 / 600 CONT .[id number] [facility] Rx#:[id number] Zosyn 4.5 GM Premix 4.5 gm In 100 / 100 300 / 300 100 ml @ 200 mls/hr IV.SIG Q6H [facility] Rx#:[id number] KCl 40 mEq Premix Inj 40 meq In 100 / 100 100 ml @ 25 mls/hr IV.SIG Q2H [facility] Rx#:[id number] Vancomycin Inj 1,500 MG In NS 515 / 515 Inj 500 ML @ 250 mls/hr IV.SIG Q12H [facility] Rx#:[id number] Oral 0 / 0 0 / 0 Tube Feeding 625 / 625 Tube Irrigant 100 / 100 Other 220 / 220 Output: Urine 0 / 0 Urine Amount (Catheter) 2675 / 2675 1400 / 1400 Indwelling Urethral Catheter 2675 / 2675 1400 / 1400 Gastric Drainage 0 / 0 Gastrostomy Tube (PEG) 0 / 0 Other: Date of Last Bowel Movement 12/14/17 12/14/17 12/14/17 Physical Exam: CONSTITUTIONAL/GENERAL: This is an adequately nourished patient, intubated and sedated TUBES/LINES/DRAINS:PIV, ETT, PEG tube, PIV. Salas catheter, SCDs, BUE soft restraints SKIN: No jaundice, rashes, or lesions. Ecchymoses on upper extremities. No wounds seen anteriorly. Skin temperature appropriate. Not diaphoretic. HEAD: Atraumatic. Normocephalic. EYES: Pupils equal and round and reactive. Extraocular motions intact. No scleral icterus. No injection or drainage. Fundi not examined. ENT: Hearing grossly normal. Nose without bleeding or purulent drainage. Moist oral mucosa NECK: Trachea midline. Supple, nontender. CARDIOVASCULAR: S1, S2 normal,no murmurs, gallops, or rubs. No JVD. Peripheral pulses symmetric. RESPIRATORY/CHEST: Symmetric, unlabored respirations. Breath sounds equal bilaterally. Scattered rhonchi across all anterior lung scott. Frequent wet cough. GASTROINTESTINAL: Abdomen soft, non-tender, nondistended. No guarding.Hypoactive sounds present.PEG tube to LIWS GENITOURINARY: Without palpable bladder distension. Salas catheter in place. MUSCULOSKELETAL: Extremities without clubbing or cyanosis, 1+ generalized edema. No joint tenderness or effusion noted. No calf tenderness. No mottling or clubbing. NEUROLOGICAL: Awake, non-/shakes head appropriately to yes/no questions. Speech mumbled, soft, difficult to hear. Follows commands. PSYCHIATRIC: Currently calm. . Diagnostic Tests Laboratory: Laboratory Results - last 72 hr 12/13/17 12/14/17 12/14/17 18:50 00:04 06:10 WBC RBC Hgb Hct MCV MCH MCHC RDW Plt Count MPV Neut % (Auto) Lymph % (Auto) [place] % (Auto) Eos % (Auto) Baso % (Auto) Neut # (Auto) Lymph # (Auto) [place] # (Auto) Eos # (Auto) Baso # (Auto) WBC Differential Differential Comment Sodium Potassium Cancelled Chloride Carbon Dioxide Anion Gap BUN Creatinine Estimated GFR POC Glucose 103 104 Random Glucose Calcium Prot Corrected Calcium Total Bilirubin AST ALT Alkaline Phosphatase Total Protein Albumin Vancomycin Trough 10.8 H 12/14/17 12/14/17 12/14/17 06:13 08:02 12:24 WBC RBC Hgb Hct MCV MCH MCHC RDW Plt Count MPV Neut % (Auto) Lymph % (Auto) [place] % (Auto) Eos % (Auto) Baso % (Auto) Neut # (Auto) Lymph # (Auto) [place] # (Auto) Eos # (Auto) Baso # (Auto) WBC Differential Differential Comment Sodium Potassium 3.3 L Chloride Carbon Dioxide Anion Gap BUN Creatinine Estimated GFR POC Glucose 112 H 107 Random Glucose Calcium Prot Corrected Calcium Total Bilirubin AST ALT Alkaline Phosphatase Total Protein Albumin Vancomycin Trough 12/14/17 12/15/17 12/15/17 18:44 04:57 04:57 WBC RBC Hgb Hct MCV MCH MCHC RDW Plt Count MPV Neut % (Auto) Lymph % (Auto) [place] % (Auto) Eos % (Auto) Baso % (Auto) Neut # (Auto) Lymph # (Auto) [place] # (Auto) Eos # (Auto) Baso # (Auto) WBC Differential Differential Comment Sodium 145 Cancelled Potassium 3.1 L Cancelled Chloride 111 H Cancelled Carbon Dioxide 22.7 Cancelled Anion Gap 11 Cancelled BUN 6 L Cancelled Creatinine 0.61 Cancelled Estimated GFR Greater than 89 Cancelled POC Glucose 116 H Random Glucose 104 Cancelled Calcium 8.5 Cancelled Prot Corrected Calcium Cancelled Total Bilirubin 1.3 H Cancelled AST 91 H Cancelled ALT 184 H Cancelled Alkaline Phosphatase 178 H Cancelled Total Protein 6.5 D Cancelled Albumin 2.7 L Cancelled Vancomycin Trough 12/15/17 12/15/17 12/16/17 11:45 17:44 00:28 WBC RBC Hgb Hct MCV MCH MCHC RDW Plt Count MPV Neut % (Auto) Lymph % (Auto) [place] % (Auto) Eos % (Auto) Baso % (Auto) Neut # (Auto) Lymph # (Auto) [place] # (Auto) Eos # (Auto) Baso # (Auto) WBC Differential Differential Comment Sodium Potassium Chloride Carbon Dioxide Anion Gap BUN Creatinine Estimated GFR POC Glucose 122 H 117 H 107 Random Glucose Calcium Prot Corrected Calcium Total Bilirubin AST ALT Alkaline Phosphatase Total Protein Albumin Vancomycin Trough 12/16/17 12/16/17 12/16/17 05:14 05:14 12:50 WBC 8.1 RBC 4.25 L Hgb 14.4 Hct 41.7 MCV 98.2 MCH 33.9 MCHC 34.6 RDW 13.7 Plt Count 166 MPV 8.8 Neut % (Auto) 75.4 H Lymph % (Auto) 13.7 [place] % (Auto) 9.3 H Eos % (Auto) 1.1 Baso % (Auto) 0.5 Neut # (Auto) 6.1 Lymph # (Auto) 1.1 [place] # (Auto) 0.8 Eos # (Auto) 0.1 Baso # (Auto) 0.0 WBC Differential . Differential Comment Auto diff final Sodium 144 Potassium 3.2 L Chloride 109 H Carbon Dioxide 24.9 Anion Gap 10 BUN 8 Creatinine 0.64 Estimated GFR Greater than 89 POC Glucose 123 H Random Glucose 123 H Calcium 9.3 D Prot Corrected Calcium Total Bilirubin 1.4 H AST 146 H ALT 230 H Alkaline Phosphatase 214 H Total Protein 7.7 D Albumin 3.1 L Vancomycin Trough Result Diagrams: 12/16/17 05:14 12/16/17 05:14 Microbiology: Microbiology 12/11/17 22:55 Aerobic Blood Culture - Final Blood - Peripheral No growth in 5 days Anaerobic Blood Culture - Final Corynebacterium not JK 12/11/17 23:00 Aerobic Blood Culture - Final Blood - Peripheral Corynebacterium not JK Anaerobic Blood Culture - Final No growth in 5 days 12/11/17 Unknown Gram Stain - Final Sputum - Endotracheal Sputum Culture - Final Pseudomonas aeruginosa Escherichia coli Beta Strep not group A 12/11/17 23:00 Urine Culture - Final Catheterized Urine No growth in 48 hours Imaging: Chest X-Ray 12/11/17 22:21 CONCLUSION: 1. Underinflation with perihilar interstitial prominence which could be related to the underinflation or could represent pulmonary edema. No airspace consolidation is identified. 2. Endotracheal tube tip measures 2.7 cm from the rosette. Cervical Spine CT 12/12/17 00:00 CONCLUSION: No acute cervical spine abnormality is identified. Head CT 12/12/17 00:00 CONCLUSION: No acute intracranial abnormality is identified. . Head CTA 12/12/17 00:00 CONCLUSION: 1. Negative CTA Head. Neck CTA 12/12/17 00:00 CONCLUSION: 1. Atelectatic calcifications and areas of ulceration involving the origin of the right internal carotid artery with approximate 70-80% stenosis right at the takeoff of the right ICA prior to the start of the patient's internal coronary stent. Head CT 12/12/17 12:29 CONCLUSION: 1. Subtle areas of low attenuation are now seen in the right frontal and occipital regions of concern for areas of evolving infarction. There is no hemorrhage or mass effect. . Chest X-Ray 12/13/17 06:00 CONCLUSION: Mildly increased perihilar interstitial and airspace opacities. Although nonspecific the appearance could be related to pulmonary edema in the appropriate clinical setting. Procedures: 12/11/2017-Intubation- in the field Assessment and Plan - Disease Oriented Problem List (1) Acute respiratory failure (2) Hypertension (3) Depression (4) Coronary artery disease (5) History of head and neck cancer Pertinent Non-Medical Issues: Psychosocial: Patient was born in [place], [place]. He moved to [place] where he lived for approximately 20 years and then moved to [place] with [facility] for another approximate 20 years. Patient recently moved to [place] 5 years ago. Patient is been to his current for 48 years. They have 2 adult daughters, 8 grandchildren and great-grandchildren. 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 Spiritual: No taoist affiliation. Legal: Patient has completed healthcare surrogate and living will. (Spouse and daughter provided with copies from last hospital hospitalization) Ethical issues impacting care: None identified at this time. Important Contacts: Spouse- Evelyn Mendoza S- [phone] Daughter- Malissa Lockhart- [phone] Prognosis: Mr. 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 Patient was brought to the emergency room by EMS on was found unresponsive at home with copious oral secretions identified as tube feeding. When EMS arrived patient was found to have spontaneous respirations, palpable pulse and was hypotensive with SBP in the 90s, and decreased level of consciousness. Patient`s O2 saturation was 60% at scene, was intubated and suctioned. Clinical course complicated with acute respiratory failure. 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 Code Status: Full Code Plan: PLAN: Legal decision maker: Patient is currently intubated, sedated on mechanical ventilation. It is unknown at this time with the patient will be able to regain capacity. Patient's healthcare surrogate is his Reji Rivas and his alternate healthcare surrogate is his daughter Howard Leonardo. Goals: Aggressive. Family is hopeful at this time that patient will recover and be able to be medically extubated. Code status was addressed and family at this point wants patient to be a full code though patient`s stated that if patient would require tracheostomy placement, she most likely will not proceed with that. CODE STATUS: Full Code SYMPTOMS: * Shortness of breath: Patient aspirated from tube feedings and required intubation. Now extubated to 2 L nasal cannula with frequent wet cough. Dyspnea worsened with activity. Remains on Zosyn for treatment of aspiration pneumonia. Aggressive pulmonary toilet. * Pain: Patient has history of head and neck cancer and extensive surgery to his neck. Patient c/o neck and left shoulder pain at home and is on a fentanyl patch 25 mcg every 72 hours at home. Fentanyl patch resumed status post extubation. Patient indicates pain is now controlled. No further recommendations. * Altered mental status: Patient was found with altered mentation at home and unresponsive. Repeat Head CT on 12/12 showed right hemispheric stroke in the frontal occipital area. Currently spontaneously moving right side and LLE, RUE weak. Mentation slowly improving. No further recommendations. Palliative care will continue to follow the patient during hospital course as condition evolves, to assist patient/decision-maker with understanding of their medical conditions, weighing benefits/burdens of treatment options, for clarification of goals of treatment. Additionally will assist with any symptoms of palliative concern Attestation Attestation: To help prompt me to consider important information that might be impacting today's encounter and assessment, information from prior notes written by myself or my colleagues may have been "brought forward" into today's note. My signature on this note, however, is an attestation that I personally performed the exam, history, and/or decision-making noted today, and, unless otherwise indicated, the interactions with patient, family, and staff as well as the review of records all occurred today. I also attest that the listed assessment and stated plan reflect my best clinical judgment today based on the combination of historical information, prior notes, and today's exam/ interactions. When time spent is documented, it refers only to time spent today by the signer, or if indicated, combined time spent today by collaborating physician/nurse practitioner. .
[2017-12-17] MEDS: Hypromellose 0.3% Opth Gel 10 GM Bottle EACH EYE SCH ×2 (00:23→08:18)
[2017-12-17] MEDS: Enoxaparin Inj 40 MG/0.4 ML Syringe SQ SCH ×2 (00:24→23:35)
[2017-12-17] MEDS: Oral Hygiene Kit OROPHARYNG SCH ×5 (00:24→23:35)
[2017-12-17] MEDS: Piperacil/Tazo 4.5 GM Premix 4.5 GM/100 ML BAG IV.SIG SCH ×5 (00:24→23:35)
[2017-12-17] MEDS: Insulin NovoLOG Aspart Correctional Sugar Inj SQ SCH ×5 (02:42→23:40)
[2017-12-17 03:54] LABS: ABG Base Excess 1.1 mmol/L (-2-2); ABG PCO2 37 mmHg (38-42); ABG PO2 71 mmHg (61-120)
[2017-12-17] MEDS: Chlorhexidine 0.12% Oral Kit 15 ML UDC OROPHARYNG SCH ×2 (08:17→20:12)
[2017-12-17] MEDS: Mirtazapine 15 MG Tablet PO SCH (08:17)
[2017-12-17] MEDS: clonazePAM 1 MG Tablet PO SCH ×3 (08:17→18:22)
[2017-12-17] MEDS: Aspirin 325 MG Tablet PO SCH (08:17)
[2017-12-17] MEDS: amLODIPine 10 MG Tablet PO SCH (08:18)
[2017-12-17] MEDS: Famotidine PF Inj 20 MG/2 ML Vial IV.PUSH SCH ×2 (08:18→20:11)
[2017-12-17] MEDS: Senna/Docusate Sodium 8.6/50 MG Tablet PO SCH ×2 (08:18→20:12)
[2017-12-17 09:03] LABS: Baso # (Auto) 0.1 th/mm3 (0.0-0.2); Baso % (Auto) 0.5 % (0.0-2.0); Eos # (Auto) 0.2 th/mm3 (0.0-0.4); Eos % (Auto) 1.3 % (0.0-4.0); Hematocrit 41.8 % (39.0-51.0); Hemoglobin 14.2 gm/dL (13.0-17.0); Lymph # (Auto) 1.5 th/mm3 (1.0-4.8); Lymph % (Auto) 12.8 % (9.0-44.0); Mean Corpuscular HGB Conc 33.9 % (32.0-36.0); Mean Corpuscular Hemoglobin 33.6 pg (27.0-34.0); Mean Corpuscular Volume 98.9 fL (80.0-100.0); Mean Platelet Volume 9.2 fL (7.0-11.0); Mono # (Auto) 1.1 th/mm3 (0.0-0.9); Mono % (Auto) 9.6 % (0.0-8.0); Neut # (Auto) 8.6 th/mm3 (1.8-7.7); Neut % (Auto) 75.8 % (16.0-70.0); Platelet Count 225 th/mm3 (150-450); Red Blood Count 4.22 mil/mm3 (4.50-5.90); Red Cell Distribution Width 13.9 % (11.6-17.2); White Blood Count 11.4 th/mm3 (4.0-11.0)
[2017-12-17 09:34] LABS: Anion Gap 11 meq/L (5-15); Blood Urea Nitrogen 19 mg/dL (7-18); Calcium 9.4 mg/dL (8.5-10.1); Carbon Dioxide 24.8 meq/L (21.0-32.0); Chloride 109 meq/L (98-107); Glomerular Filtration Rate Greater Than 89 mL/min (>89); Glucose,Random 145 mg/dL (74-106); Potassium 3.3 meq/L (3.5-5.1); Sodium 145 meq/L (136-145)
--- NOTE | 2017-12-17 10:37 | P.PNIM ---
Subjective Interval history: pt aspirating. sound congested. Physical Exam Vital signs: Vital Signs 12/16/17 11:15 12/16/17 16:00 12/16/17 17:59 Temperature 97.4 F L 98.4 F Pulse Rate 92 H 90 Respiratory Rate 18 20 Blood Pressure 134/74 153/74 H Pulse Oximetry 93 L 93 L 93 L 12/16/17 20:00 12/16/17 23:40 12/17/17 03:00 Temperature 98.3 F 97.7 F Pulse Rate 105 H 81 101 H Respiratory Rate 22 20 26 H Blood Pressure 160/86 H 144/81 H Pulse Oximetry 92 L 93 L 12/17/17 04:00 12/17/17 08:00 12/17/17 08:04 Temperature 99 F 98.5 F Pulse Rate 99 H 98 H Respiratory Rate 20 20 Blood Pressure 164/79 H 154/78 H Pulse Oximetry 93 L 96 Intake & Output 12/16/17 12/17/17 12/17/17 18:59 06:59 18:59 Intake Total 500 / 500 200 / 200 100 / 100 Output Total 600 / 600 600 / 600 Balance -100 / -100 -400 / -400 100 / 100 Weight 75.7 kg Intake: IV 500 / 500 200 / 200 100 / 100 Zosyn 4.5 GM Premix 4.5 gm In 100 / 100 200 / 200 100 / 100 100 ml @ 200 mls/hr IV.SIG Q6H [facility] Rx#:[id number] Output: Urine 600 / 600 300 / 300 Urine Amount (Catheter) 300 / 300 Indwelling Urethral Catheter 300 / 300 Other: Date of Last Bowel Movement 12/14/17 12/17/17 # Bowel Movements 1 3 lethargic heart reg lung course rhonci gary abd s/nt/peg ext no edema mccray. dark urine. - Urinary Catheter Management Indwelling Urethral Catheter Cath placed during this visit: yes Reason for continuing: Hourly intake/output Insertion date: 12/11/17 Insertion time: 00:20 Results - Labs CBC & Chem 7: 12/17/17 08:10 12/17/17 08:10 Laboratory Results - last 24 hr 12/16/17 12/16/17 12/16/17 12:50 17:15 21:04 WBC RBC Hgb Hct MCV MCH MCHC RDW Plt Count MPV Neut % (Auto) Lymph % (Auto) [place] % (Auto) Eos % (Auto) Baso % (Auto) Neut # (Auto) Lymph # (Auto) [place] # (Auto) Eos # (Auto) Baso # (Auto) WBC Differential Differential Comment Puncture Site Patient Temperature O2 Saturation ABG pH ABG pCO2 ABG pO2 ABG HCO3 ABG O2 Content ABG Base Excess ABG Methemoglobin Basilio Test Hemoglobin Carboxyhemoglobin O2 Delivery Device Liter Flow Inspired O2 Critical Value Sodium Potassium Chloride Carbon Dioxide Anion Gap BUN Creatinine Estimated GFR POC Glucose 123 H 122 H 102 Random Glucose Calcium 12/17/17 12/17/17 12/17/17 02:03 03:43 05:11 WBC RBC Hgb Hct MCV MCH MCHC RDW Plt Count MPV Neut % (Auto) Lymph % (Auto) [place] % (Auto) Eos % (Auto) Baso % (Auto) Neut # (Auto) Lymph # (Auto) [place] # (Auto) Eos # (Auto) Baso # (Auto) WBC Differential Differential Comment Puncture Site Left brachial Patient Temperature 98.6 O2 Saturation 92 ABG pH 7.45 H ABG pCO2 37 L ABG pO2 71 ABG HCO3 25 ABG O2 Content 19.8 ABG Base Excess 1.1 ABG Methemoglobin 1.0 Basilio Test Present Hemoglobin 15.3 Carboxyhemoglobin 1.3 O2 Delivery Device Mask Liter Flow 8.00 Inspired O2 50 Critical Value No Sodium Potassium Chloride Carbon Dioxide Anion Gap BUN Creatinine Estimated GFR POC Glucose 122 H 110 Random Glucose Calcium 12/17/17 12/17/17 08:10 08:10 WBC 11.4 H RBC 4.22 L Hgb 14.2 Hct 41.8 MCV 98.9 MCH 33.6 MCHC 33.9 RDW 13.9 Plt Count 225 D MPV 9.2 Neut % (Auto) 75.8 H Lymph % (Auto) 12.8 [place] % (Auto) 9.6 H Eos % (Auto) 1.3 Baso % (Auto) 0.5 Neut # (Auto) 8.6 H Lymph # (Auto) 1.5 [place] # (Auto) 1.1 H Eos # (Auto) 0.2 Baso # (Auto) 0.1 WBC Differential . Differential Comment Auto diff final Puncture Site Patient Temperature O2 Saturation ABG pH ABG pCO2 ABG pO2 ABG HCO3 ABG O2 Content ABG Base Excess ABG Methemoglobin Basilio Test Hemoglobin Carboxyhemoglobin O2 Delivery Device Liter Flow Inspired O2 Critical Value Sodium 145 Potassium 3.3 L Chloride 109 H Carbon Dioxide 24.8 Anion Gap 11 BUN 19 H Creatinine 0.76 Estimated GFR Greater than 89 POC Glucose Random Glucose 145 H Calcium 9.4 Microbiology 12/11/17 22:55 Blood - Peripheral Aerobic Blood Culture - Final No growth in 5 days 12/11/17 22:55 Blood - Peripheral Anaerobic Blood Culture - Final Corynebacterium not JK 12/11/17 23:00 Blood - Peripheral Aerobic Blood Culture - Final Corynebacterium not JK 12/11/17 23:00 Blood - Peripheral Anaerobic Blood Culture - Final No growth in 5 days Assessment and Plan - Assessment (1) Aspiration pneumonia Code(s): J69.0 - Pneumonitis due to inhalation of food and vomit Status: Acute Plan: 67-year-old male with past medical history of head and neck cancer presents from home after being found unresponsive. Patient was found by EMS to have spontaneous respirations palpable pulse and blood pressure but markedly decreased level of consciousness, hypotensive with large amount of tube feeding contents in the oral cavity. Patient has history of head neck cancer and takes no oral medications takes all medications and feedings through PEG tube. Patient was last seen normal approximately at breakfast time on Tuesday and then family members found him unresponsive. Unknown downtime. Upon EMS arrival patient was assessed and suctioned and initial O2 saturations were 60% patient was placed on supplemental oxygen with improved ventilations and then subsequently intubated with a 7.5 endotracheal tube. Per EMS copious amounts of suctioning was performed and large amounts of tube feeding were suctioned. Aspiration pneumonia Acute encephalopathy acute cva right frontal/occipital. 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 Chronic benzodiazepine use, Chronic opioid use Depression disorder Precedex titrated off. on klononpin scheduled Fentanyl patch 25 mcg/h home dose. Seroquel 50 mg every 12 hourly as needed for agitation. ct head no acute cva initially....repeat CT brain shows concern for evolving cva in occipital/frontal areas. cta showed 80percent obstruction and areas of ulceration proximal to right carotid stent Unable to do MRI brain secondary to retained metal and I according to . Has bilateral internal carotid artery stents. CTA revealed right carotid artery stenosis proximal to internal carotid artery stent. Vascular surgery consult requested by neurology. On aspirin, Plavix per neurology. Vascular planning to reevaluate next week for intervention. Extubated on 12/14 mccray PT consultation prn oral suction. dvt prophylaxis. cont nebs. cont zosyn for pneumonia.. pt moved to med/surg last night. he is doing poorly. lung very congested..high tube feed residual and concern for ongoing aspiration/hypoxia duonebs/suction/elevate head/stop jevity tube feeding for now/cont reglan. gentle ivf. I thinke we need to move him back to ICU setting for respiratory treatments and monitoring..high risk of reintubation. family at bedside now. Elevated troponin Essential hypertension Coronary artery disease Bilateral carotid artery stents Troponin peaked at 0.39. EKG revealed no acute ST changes or bundle-branch blocks Continue amlodipine 10 mg daily/home medication for hypertension Limited 2D echocardiogram. : (2) Respiratory failure Code(s): J96.90 - Respiratory failure, unspecified, unspecified whether with hypoxia or hypercapnia Status: Acute (3) Altered mental status Code(s): R41.82 - Altered mental status, unspecified Status: Acute
--- NOTE | 2017-12-17 12:10 | P.PNCC ---
Subjective Subjective Remarks/Hospital Course: 67-year-old male with past medical history of head and neck cancer presents from home after being found unresponsive. Patient was found by EMS to have spontaneous respirations palpable pulse and blood pressure but markedly decreased level of consciousness, hypotensive with large amount of tube feeding contents in the oral cavity. Patient has history of head neck cancer and takes no oral medications takes all medications and feedings through PEG tube. Patient was last seen normal approximately at breakfast time on Tuesday and then family members found him unresponsive. Unknown downtime. Upon EMS arrival patient was assessed and suctioned and initial O2 saturations were 60% patient was placed on supplemental oxygen with improved ventilations and then subsequently intubated with a 7.5 endotracheal tube. Per EMS copious amounts of suctioning was performed and large amounts of tube feeding were suctioned. Patient presents now with endotracheal tube in place bilateral breath sounds to auscultation with bag valve ventilation and normotensive upon EMS presentation however initial blood pressure here mildly hypotensive with systolic pressure of 90 mmHg. Patient remains unresponsive. Family members not available. Patient with known allergies to narcotics. No other medical history is available. Subjective 12/12: Afebrile. Currently on propofol and fentanyl drips. Not really moving his left upper lower extremity. CT brain with CT angiogram brain ordered. Cannot do MRI due to retained metal metal in eye according to . 12/13: Sedated, arousable, orally intubated on mechanical ventilation 12/14: Sedated, arousable, orally intubated on mechanical ventilation. 12/15: Extubated yesterday, on nasal cannula tolerating well. Precedex to be titrated off this morning. Fentanyl patch resumed yesterday. Patient is awake and alert, knows he is in the hospital. He recognizes his family members. Minimal weakness on the left side. Moving right side well. Tolerating PEG feeds. ___ 12/17: Patient transferred to hospitalist service yesterday, but this morning was again found to be in respiratory distress. Concern for recurrent aspiration as he had high tube feed residuals via PEG. Transferred to [facility] [place]. Objective Vital Signs / I&O: Vital Signs 12/16/17 16:00 12/16/17 17:59 12/16/17 20:00 Temperature 98.4 F 98.3 F Pulse Rate 90 105 H Respiratory Rate 20 22 Blood Pressure 153/74 H 160/86 H Pulse Oximetry 93 L 93 L 92 L 12/16/17 23:40 12/17/17 03:00 12/17/17 04:00 Temperature 97.7 F 99 F Pulse Rate 81 101 H 99 H Respiratory Rate 20 26 H Blood Pressure 144/81 H 164/79 H Pulse Oximetry 93 L 93 L 12/17/17 08:00 12/17/17 08:04 12/17/17 11:28 Temperature 98.5 F Pulse Rate 98 H 92 H Respiratory Rate 20 20 26 H Blood Pressure 154/78 H Pulse Oximetry 96 Intake & Output 12/16/17 12/17/17 12/17/17 18:59 06:59 18:59 Intake Total 500 / 500 200 / 200 100 / 100 Output Total 600 / 600 600 / 600 Balance -100 / -100 -400 / -400 100 / 100 Weight 75.7 kg Intake: IV 500 / 500 200 / 200 100 / 100 Zosyn 4.5 GM Premix 4.5 gm In 100 / 100 200 / 200 100 / 100 100 ml @ 200 mls/hr IV.SIG Q6H [facility] Rx#:[id number] Output: Urine 600 / 600 300 / 300 Urine Amount (Catheter) 300 / 300 Indwelling Urethral Catheter 300 / 300 Other: Date of Last Bowel Movement 12/14/17 12/17/17 # Bowel Movements 1 3 Result Diagrams: 12/17/17 08:10 12/17/17 08:10 Objective Remarks: GENERAL: Elderly male sitting in bed, moderate respiratory distress SKIN: Warm and dry. HEENT: NCAT, PERRL NECK: Trachea midline. Scarring from prior neck dissection noted CARDIOVASCULAR: Borderline tachy, regular RESPIRATORY: Increased work of breathing, weak cough, coarse breath sounds bilaterally GASTROINTESTINAL: Soft, non-tender in all quadrants, non-distended. PEG tube present. MUSCULOSKELETAL: No peripheral edema NEUROLOGICAL: Awake and alert, answers questions appropriately, moving all extremities Assessment and Plan - Assessment and Plan Plan: Neuro/Psych: Acute encephalopathy- resolved Cerebrovascular accident Chronic benzodiazepine use with clonazepam 1 mg 3 times daily Chronic opioid use with fentanyl patches 25 mcg every 72 hours/found with 3 fentanyl patches on him Depression disorder NOS Fentanyl patch 25 mcg/h home dose. Seroquel 50 mg every 12 hourly as needed for agitation. s/p right frontal and occipital CVA, unable to do MRI brain secondary to retained metal in eye according to . * Has bilateral internal carotid artery stents, right carotid stent has ulcerated plaque with 80% stenosis. Per vascular consult, may need additional stent inside of original one in order to cover the ulceration and relieve the stenosis. Will need a carotid angio first for pre-op planning. * ASA, plavix CV: Elevated troponin-- resolved Essential hypertension- chronic Coronary artery disease- chronic Bilateral carotid artery stents- chronic Troponin peaked at 0.39, no longer trending Continue amlodipine 10 mg daily/home medication for hypertension 2D echo showed EF 60-65%, moderate pulmonary HTN (PA pressure 32 mmHg), moderate AR, trace TR Resp: Acute respiratory failure-- recurrent Extubated on 12/14, now with worsening respiratory status requiring transfer back to [facility] [place] and bipap for respiratory support * ABG in 30 minutes; if hypercarbic, will intubate * Would like to avoid reintubation if at all possible * Stat CXR Albuterol/ipratropium aerosols every 6 hours with albuterol aerosols every 2 hours as needed for dyspnea Chest PT GI: Chronic dysphagia requring PEG tube nutrition Hold tube feeds for now, open PEG to gravity until respiratory status improves Famotidine for GI prophylaxis Docusate sodium/senna 1 tablet twice daily for bowel regimen : Maintain Salas catheter Endo: SSI with Accu-Cheks every 6 hours to maintain euglycemia Renal: Monitor urine output Accurate I's and O's Creatinine currently within normal limits ID: Day 6 of zosyn for pseudomonal/ E coli pneumonia, will continue for now as patient's respiratory status is now worse MSK: PT evaluate and treat FEN: Hypokalemia Replace electrolytes as clinically indicated per ICU electrolyte protocol Access -Peripheral IV. Prophylaxis -GI -famotidine -DVT -SCD/enoxaparin Counseling/ Coordination of Care: Total critical care time: 52 minutes. This includes examining the patient, gathering history from someone other than the patient (i.e., chart review), discussing the patient's care with other providers, managing the patient's respiratory status with non-invasive ventilation, ordering and interpreting radiology studies, ordering and interpreting laboratory studies, re-evaluation at frequent intervals, and documentation. All critical care time is separate and exclusive of procedures, teaching, and patient/ family updates. Code Status: Full
[2017-12-17] MEDS ORDERED: Magnesium Sulfate Inj 2 GM in Sodium Chlor 0.9% Inj 96 ML IV.SIG PRN (12:20)
[2017-12-17] MEDS ORDERED: Potassium Chloride 25 MEQ Effervescent Tablet PO PRN (12:20)
[2017-12-17] MEDS ORDERED: Sodium Phosphate Inj 30 MMOL in Sodium Chlor 0.9% Inj 250 ML IV.SIG PRN (12:20)
[2017-12-17] MEDS ORDERED: Magnesium Oxide 400 MG Tablet PO PRN (12:20)
[2017-12-17] MEDS ORDERED: Potassium Phosphate 500 MG Soluble Tablet PO PRN ×2 (12:20)
[2017-12-17] MEDS ORDERED: Magnesium Sulfate Inj 4 GM in Sodium Chlor 0.9% Inj 92 ML IV.SIG PRN (12:20)
[2017-12-17] MEDS ORDERED: Potassium Chlor 20 mEq Premix 20 MEQ/100 ML PIGGYBACK IV.SIG PRN (12:20)
[2017-12-17] MEDS ORDERED: Potassium Chlor 40 mEq Premix 40 MEQ/100 ML PIGGYBACK IV.SIG PRN ×2 (12:20)
[2017-12-17 12:28] LABS: ABG Base Excess 1.9 mmol/L (-2-2); ABG PCO2 36 mmHg (38-42); ABG PO2 73 mmHG (61-120)
--- NOTE | 2017-12-17 12:41 | XR ---
EXAM DATE: 12/17/2017 12:34 PM EDT AGE/SEX: 67 years / Male INDICATIONS: Respiratory status. Infiltrate. CLINICAL DATA: This is the patient's subsequent encounter. Patient reports that signs and symptoms h ave been present for 3 days and indicates a pain score of Nonresponsive. MEDICAL/SURGICAL HISTORY: Non-responsive. Non-responsive. COMPARISON: [facility], CHEST 1V SINGLE AP, 12/13/2017. [facility], CHEST 1V SINGLE AP, 12/11/2017. . FINDINGS: Single AP view of the chest demonstrate interval extubation with improved aeration of the lungs and s light resolution of the airspace opacities within the right and to a lesser extent left hemithorax. T here is persistent prominence within the region of the right hilum. Heart size is normal. Pulmonary v asculature is normal. CONCLUSION: Interval extubation with improved lung exam. Electronically signed by: Brittany Arce MD 12/17/2017 12:39 PM EDT
[2017-12-17] MEDS: QUEtiapine 100 MG Tablet PO PRN (22:35)
[2017-12-18] MEDS: Oral Hygiene Kit OROPHARYNG SCH ×4 (03:45→23:36)
[2017-12-18 04:31] LABS: Baso # (Auto) 0.1 th/mm3 (0.0-0.2); Baso % (Auto) 0.9 % (0.0-2.0); Eos # (Auto) 0.1 th/mm3 (0.0-0.4); Hematocrit 39.9 % (39.0-51.0); Hemoglobin 13.7 gm/dL (13.0-17.0); Lymph # (Auto) 1.5 th/mm3 (1.0-4.8); Lymph % (Auto) 11.7 % (9.0-44.0); Mean Corpuscular HGB Conc 34.3 % (32.0-36.0); Mean Corpuscular Hemoglobin 33.5 pg (27.0-34.0); Mean Corpuscular Volume 97.4 fL (80.0-100.0); Mean Platelet Volume 9.2 fL (7.0-11.0); Mono # (Auto) 1.7 th/mm3 (0.0-0.9); Mono % (Auto) 13.5 % (0.0-8.0); Neut # (Auto) 9.4 th/mm3 (1.8-7.7); Neut % (Auto) 72.9 % (16.0-70.0); Platelet Count 220 th/mm3 (150-450); Red Blood Count 4.09 mil/mm3 (4.50-5.90); Red Cell Distribution Width 13.9 % (11.6-17.2); White Blood Count 12.9 th/mm3 (4.0-11.0)
[2017-12-18 04:56] LABS: Anion Gap 10 meq/L (5-15); Blood Urea Nitrogen 21 mg/dL (7-18); Calcium 8.7 mg/dL (8.5-10.1); Carbon Dioxide 25.8 meq/L (21.0-32.0); Chloride 109 meq/L (98-107); Glomerular Filtration Rate Greater Than 89 mL/min (>89); Glucose,Random 91 mg/dL (74-106); Potassium 3.4 meq/L (3.5-5.1); Sodium 145 meq/L (136-145)
[2017-12-18] MEDS: Insulin NovoLOG Aspart Correctional Sugar Inj SQ SCH ×4 (05:46→23:36)
[2017-12-18] MEDS: Piperacil/Tazo 4.5 GM Premix 4.5 GM/100 ML BAG IV.SIG SCH ×4 (05:49→23:35)
[2017-12-18] MEDS: Chlorhexidine 0.12% Oral Kit 15 ML UDC OROPHARYNG SCH ×2 (07:14→20:19)
[2017-12-18] MEDS: Mirtazapine 15 MG Tablet PO SCH (09:37)
[2017-12-18] MEDS: Aspirin 325 MG Tablet PO SCH (09:37)
[2017-12-18] MEDS: amLODIPine 10 MG Tablet PO SCH (09:37)
[2017-12-18] MEDS: clonazePAM 1 MG Tablet PO SCH ×3 (09:41→17:05)
[2017-12-18] MEDS: Famotidine PF Inj 20 MG/2 ML Vial IV.PUSH SCH ×2 (09:42→20:19)
--- NOTE | 2017-12-18 11:12 | P.PNVS ---
Subjective Subjective/Hospital Course: 12/18/2017 Patient with multiple medical problems now in respiratory distress in the ICU. I reviewed the laboratory and diagnostic procedures. This gentleman indeed has a right hemispheric stroke by the clinical findings. The initial head CT on 12/11/2017 does not show a stroke; however, repeat CT scan on 12/12/2017 reveals a right frontal occipital ischemic infarction, which is consistent with the patient's findings. The CTA of the neck, on the other hand, reveals bilateral carotid stents which were passed at some point in the past, and about 80% stenosis on the right. This is quite the problem at this time. There is an ulcerated plaque present in the area. Removing the stents is almost impossible,and doing the surgery on top of the stents with the radiated neck would be unwise. Therefore at some point if patient improves we can always place another right carotid stent below the first one, which clearly did not encompass the area of stenosis in the first place. At this point however patient has multiple other medical issues and if and when he improves we will readdress the right carotid stenosis but at this time patient is not a candidate for any semielective procedure. Objective Vital Signs / I&O: Vital Signs 12/17/17 11:28 12/17/17 12:00 12/17/17 14:00 Temperature 98.1 F Pulse Rate 92 H 93 H 97 H Respiratory Rate 26 H 24 Blood Pressure 147/78 H Pulse Oximetry 95 12/17/17 15:16 12/17/17 15:35 12/17/17 16:00 Temperature 98.8 F Pulse Rate 100 H 98 H Respiratory Rate 16 24 Blood Pressure 147/78 H Pulse Oximetry 92 L 94 L 12/17/17 18:00 12/17/17 20:00 12/17/17 20:40 Temperature 98.8 F Pulse Rate 100 H 100 H 94 H Respiratory Rate 12 30 H Blood Pressure 152/114 H Pulse Oximetry 97 12/17/17 20:43 12/17/17 22:00 12/17/17 23:30 Temperature Pulse Rate 105 H 101 H Respiratory Rate 23 Blood Pressure Pulse Oximetry 100 12/17/17 23:56 12/18/17 00:00 12/18/17 02:00 Temperature 99.6 F Pulse Rate 102 H 102 H Respiratory Rate 35 H Blood Pressure 145/75 H Pulse Oximetry 96 100 12/18/17 03:51 12/18/17 04:00 12/18/17 04:17 Temperature 100 F H Pulse Rate 107 H 106 H Respiratory Rate 30 H 35 H Blood Pressure 164/91 H Pulse Oximetry 99 98 12/18/17 06:00 12/18/17 08:16 Temperature Pulse Rate 101 H 91 H Respiratory Rate 31 H Blood Pressure Pulse Oximetry 100 Intake & Output 12/17/17 12/18/17 12/18/17 18:59 06:59 18:59 Intake Total 400 / 400 1200 / 1200 Output Total 550 / 550 575 / 575 Balance -150 / -150 625 / 625 Weight 73.6 kg Intake: IV 200 / 200 1200 / 1200 NS + KCl 20 mEq Inj 1,000 ML @ 1000 / 1000 80 mls/hr IV.CONT .[id number] [facility] Rx#:[id number] Zosyn 4.5 GM Premix 4.5 gm In 200 / 200 200 / 200 100 ml @ 200 mls/hr IV.SIG Q6H [facility] Rx#:[id number] Oral 0 / 0 Water Bolus Amount 200 / 200 Output: Urine Amount (Catheter) 550 / 550 575 / 575 Indwelling Urethral Catheter 550 / 550 575 / 575 Other: Date of Last Bowel Movement 12/17/17 12/18/17 # Incontinent Bowel Movements 2 Laboratory Results - last 24 hr 12/17/17 12/17/17 12/17/17 12:10 12:45 18:39 WBC RBC Hgb Hct MCV MCH MCHC RDW Plt Count MPV Neut % (Auto) Lymph % (Auto) Hale % (Auto) Eos % (Auto) Baso % (Auto) Neut # (Auto) Lymph # (Auto) Hale # (Auto) Eos # (Auto) Baso # (Auto) WBC Differential Differential Comment Puncture Site Left brachial Patient Temperature 98.6 O2 Saturation 93 ABG pH 7.47 H ABG pCO2 36 L ABG pO2 73 ABG HCO3 25 ABG O2 Content 19.4 ABG Base Excess 1.9 ABG Methemoglobin 1.4 Basilio Test Y Hemoglobin 14.9 Carboxyhemoglobin 0.8 O2 Delivery Device Bipap Vent Setting Ipap 12 epap 6 Inspired O2 60 Critical Value No Sodium Potassium Chloride Carbon Dioxide Anion Gap BUN Creatinine Estimated GFR POC Glucose 113 H 98 Random Glucose Calcium 12/17/17 12/18/1718 23:40 03:35 03:55 WBC 12.9 H RBC 4.09 L Hgb 13.7 Hct 39.9 MCV 97.4 MCH 33.5 MCHC 34.3 RDW 13.9 Plt Count 220 MPV 9.2 Neut % (Auto) 72.9 H Lymph % (Auto) 11.7 Hale % (Auto) 13.5 H Eos % (Auto) 1.0 Baso % (Auto) 0.9 Neut # (Auto) 9.4 H Lymph # (Auto) 1.5 Hale # (Auto) 1.7 H Eos # (Auto) 0.1 Baso # (Auto) 0.1 WBC Differential . Differential Comment Auto diff final Puncture Site Patient Temperature O2 Saturation ABG pH ABG pCO2 ABG pO2 ABG HCO3 ABG O2 Content ABG Base Excess ABG Methemoglobin Basilio Test Hemoglobin Carboxyhemoglobin O2 Delivery Device Vent Setting Inspired O2 Critical Value Sodium 145 Potassium 3.4 L Chloride 109 H Carbon Dioxide 25.8 Anion Gap 10 BUN 21 H Creatinine 0.70 Estimated GFR Greater than 89 POC Glucose 101 Random Glucose 91 Calcium 8.7 12/18/17 05:33 WBC RBC Hgb Hct MCV MCH MCHC RDW Plt Count MPV Neut % (Auto) Lymph % (Auto) Hale % (Auto) Eos % (Auto) Baso % (Auto) Neut # (Auto) Lymph # (Auto) Hale # (Auto) Eos # (Auto) Baso # (Auto) WBC Differential Differential Comment Puncture Site Patient Temperature O2 Saturation ABG pH ABG pCO2 ABG pO2 ABG HCO3 ABG O2 Content ABG Base Excess ABG Methemoglobin Basilio Test Hemoglobin Carboxyhemoglobin O2 Delivery Device Vent Setting Inspired O2 Critical Value Sodium Potassium Chloride Carbon Dioxide Anion Gap BUN Creatinine Estimated GFR POC Glucose 92 Random Glucose Calcium Impressions Chest X-Ray 12/17/17 11:50 CONCLUSION: Interval extubation with improved lung exam.
[2017-12-18] MEDS: Senna/Docusate Sodium 8.6/50 MG Tablet PO SCH ×2 (13:46→20:19)
--- NOTE | 2017-12-18 14:31 | P.PNCC ---
Subjective Subjective Remarks/Hospital Course: 67-year-old male with past medical history of head and neck cancer presents from home after being found unresponsive. Patient was found by EMS to have spontaneous respirations palpable pulse and blood pressure but markedly decreased level of consciousness, hypotensive with large amount of tube feeding contents in the oral cavity. Patient has history of head neck cancer and takes no oral medications takes all medications and feedings through PEG tube. Patient was last seen normal approximately at breakfast time on Tuesday and then family members found him unresponsive. Unknown downtime. Upon EMS arrival patient was assessed and suctioned and initial O2 saturations were 60% patient was placed on supplemental oxygen with improved ventilations and then subsequently intubated with a 7.5 endotracheal tube. Per EMS copious amounts of suctioning was performed and large amounts of tube feeding were suctioned. Patient presents now with endotracheal tube in place bilateral breath sounds to auscultation with bag valve ventilation and normotensive upon EMS presentation however initial blood pressure here mildly hypotensive with systolic pressure of 90 mmHg. Patient remains unresponsive. Family members not available. Patient with known allergies to narcotics. No other medical history is available. Subjective 12/12: Afebrile. Currently on propofol and fentanyl drips. Not really moving his left upper lower extremity. CT brain with CT angiogram brain ordered. Cannot do MRI due to retained metal metal in eye according to . 12/13: Sedated, arousable, orally intubated on mechanical ventilation 12/14: Sedated, arousable, orally intubated on mechanical ventilation. 12/15: Extubated yesterday, on nasal cannula tolerating well. Precedex to be titrated off this morning. Fentanyl patch resumed yesterday. Patient is awake and alert, knows he is in the hospital. He recognizes his family members. Minimal weakness on the left side. Moving right side well. Tolerating PEG feeds. ___ 12/17: Patient transferred to hospitalist service yesterday, but this morning was again found to be in respiratory distress. Concern for recurrent aspiration as he had high tube feed residuals via PEG. Transferred to [facility] [place]. 12/18: Patient tolerated bipap well yesterday, had some agitation overnight which improved with seroquel. Objective Vital Signs / I&O: Vital Signs 12/17/17 15:16 12/17/17 15:35 12/17/17 16:00 Temperature 98.8 F Pulse Rate 100 H 98 H Respiratory Rate 16 24 Blood Pressure 147/78 H Pulse Oximetry 92 L 94 L 12/17/17 18:00 12/17/17 20:00 12/17/17 20:40 Temperature 98.8 F Pulse Rate 100 H 100 H 94 H Respiratory Rate 12 30 H Blood Pressure 152/114 H Pulse Oximetry 97 12/17/17 20:43 12/17/17 22:00 12/17/17 23:30 Temperature Pulse Rate 105 H 101 H Respiratory Rate 23 Blood Pressure Pulse Oximetry 100 12/17/17 23:56 12/18/17 00:00 12/18/17 02:00 Temperature 99.6 F Pulse Rate 102 H 102 H Respiratory Rate 35 H Blood Pressure 145/75 H Pulse Oximetry 96 100 12/18/17 03:51 12/18/17 04:00 12/18/17 04:17 Temperature 100 F H Pulse Rate 107 H 106 H Respiratory Rate 30 H 35 H Blood Pressure 164/91 H Pulse Oximetry 99 98 12/18/17 06:00 12/18/17 08:00 12/18/17 08:16 Temperature 97.6 F Pulse Rate 101 H 91 H 91 H Respiratory Rate 28 H 31 H Blood Pressure 158/72 H Pulse Oximetry 100 100 12/18/17 10:00 12/18/17 11:09 12/18/17 11:10 Temperature Pulse Rate 91 H 90 Respiratory Rate 21 Blood Pressure Pulse Oximetry 100 Intake & Output 12/17/17 12/18/17 12/18/17 18:59 06:59 18:59 Intake Total 400 / 400 1300 / 1300 Output Total 550 / 550 575 / 575 Balance -150 / -150 725 / 725 Weight 73.6 kg Intake: IV 200 / 200 1300 / 1300 NS + KCl 20 mEq Inj 1,000 ML @ 1000 / 1000 80 mls/hr IV.CONT .[id number] [facility] Rx#:[id number] Zosyn 4.5 GM Premix 4.5 gm In 200 / 200 300 / 300 100 ml @ 200 mls/hr IV.SIG Q6H [facility] Rx#:[id number] Oral 0 / 0 Water Bolus Amount 200 / 200 Output: Urine Amount (Catheter) 550 / 550 575 / 575 Indwelling Urethral Catheter 550 / 550 575 / 575 Other: Date of Last Bowel Movement 12/17/17 12/18/17 12/17/17 # Incontinent Bowel Movements 2 Result Diagrams: 12/18/17 03:55 12/18/17 03:35 Objective Remarks: GENERAL: Elderly male lying in bed, on bipap, appears comfortable, no acute distress SKIN: Warm and dry HEENT: NCAT, PERRL NECK: Trachea midline. Scarring from prior neck dissection CARDIOVASCULAR: Regular rate and rhythm RESPIRATORY: Comfortably breathing on bipap, diminished breath sounds bilaterally GASTROINTESTINAL: Soft, non-tender in all quadrants, non-distended. PEG tube present. MUSCULOSKELETAL: No peripheral edema NEUROLOGICAL: Awake and alert, answers questions appropriately, moving all extremities Assessment and Plan - Assessment and Plan Plan: Neuro/Psych: Acute encephalopathy- resolved Cerebrovascular accident Chronic benzodiazepine use with clonazepam 1 mg 3 times daily Chronic opioid use with fentanyl patches 25 mcg every 72 hours/found with 3 fentanyl patches on him Depression disorder NOS Fentanyl patch 25 mcg/h home dose. Seroquel 50 mg every 12 hourly as needed for agitation. s/p right frontal and occipital CVA, unable to do MRI brain secondary to retained metal in eye according to . * Has bilateral internal carotid artery stents, right carotid stent has ulcerated plaque with 80% stenosis. Per vascular consult, may need additional stent inside of original one in order to cover the ulceration and relieve the stenosis. Will need a carotid angio first for pre-op planning. * ASA, plavix CV: Elevated troponin-- resolved Essential hypertension- chronic Coronary artery disease- chronic Bilateral carotid artery stents- chronic Troponin peaked at 0.39, no longer trending Continue daily full-dose aspirin, plavix Continue amlodipine 10 mg daily/home medication for hypertension 2D echo showed EF 60-65%, moderate pulmonary HTN (PA pressure 32 mmHg), moderate AR, trace TR Resp: Acute respiratory failure-- recurrent Extubated on 12/14, transferred back to [facility] [place] yesterday for bipap * ABG in 30 minutes; if hypercarbic, will intubate * CXR yesterday stable to slightly improved as compared to previous * Continue bipap with short breaks on ventimask as tolerated, qhs bipap * Albuterol/ipratropium aerosols every 6 hours with albuterol aerosols every 2 hours as needed for dyspnea * Patient has a significant smoking history but is not on COPD meds at home, will give short course of steroids to see if this helps w his respiratory status * If still no improvement by tomorrow, consider pulmonology consult * Chest PT, aggressive pulmonary toilet GI: Chronic dysphagia requring PEG tube nutrition Start trickle tube feeds today, check residuals, hold for residual >300 cc Famotidine for GI prophylaxis Docusate sodium/senna 1 tablet twice daily for bowel regimen : Maintain Salas catheter Endo: SSI with Accu-Cheks every 6 hours to maintain euglycemia Renal: Monitor urine output ID: Day 7 of zosyn for pseudomonal/ E coli pneumonia, will continue for now as patient's respiratory status acutely worsened yesterday, likely for 10 day course MSK: PT evaluate and treat FEN: Hypokalemia Replace electrolytes as clinically indicated per ICU electrolyte protocol Access -Peripheral IV Prophylaxis -GI -famotidine -DVT -SCD/enoxaparin Counseling/ Coordination of Care: Total critical care time: 48 minutes. This includes examining the patient, gathering history from someone other than the patient (i.e., chart review), managing the patient's respiratory status with non-invasive ventilation, ordering and interpreting radiology studies, ordering and interpreting laboratory studies, re-evaluation at frequent intervals, and documentation. All critical care time is separate and exclusive of procedures, teaching, and patient/ family updates. Code Status: Full
[2017-12-18] MEDS: MethylPREDNISolone Sod Succinate Inj 125 MG/2 ML Vial IV.PUSH SCH (18:33)
[2017-12-18] MEDS: Enoxaparin Inj 40 MG/0.4 ML Syringe SQ SCH (23:35)
[2017-12-19] MEDS: Oral Hygiene Kit OROPHARYNG SCH ×4 (04:14→23:22)
[2017-12-19 04:55] LABS: Baso % (Auto) 0.2 % (0.0-2.0); Hematocrit 37.2 % (39.0-51.0); Hemoglobin 12.6 gm/dL (13.0-17.0); Lymph # (Auto) 0.8 th/mm3 (1.0-4.8); Lymph % (Auto) 5.7 % (9.0-44.0); Mean Corpuscular HGB Conc 33.8 % (32.0-36.0); Mean Corpuscular Hemoglobin 33.2 pg (27.0-34.0); Mean Corpuscular Volume 98.4 fL (80.0-100.0); Mean Platelet Volume 9.6 fL (7.0-11.0); Mono # (Auto) 0.6 th/mm3 (0.0-0.9); Mono % (Auto) 4.5 % (0.0-8.0); Neut # (Auto) 12.2 th/mm3 (1.8-7.7); Neut % (Auto) 89.6 % (16.0-70.0); Platelet Count 272 th/mm3 (150-450); Red Blood Count 3.78 mil/mm3 (4.50-5.90); Red Cell Distribution Width 14.1 % (11.6-17.2); White Blood Count 13.6 th/mm3 (4.0-11.0)
[2017-12-19] MEDS: Piperacil/Tazo 4.5 GM Premix 4.5 GM/100 ML BAG IV.SIG SCH ×4 (05:04→23:23)
[2017-12-19] MEDS: Insulin NovoLOG Aspart Correctional Sugar Inj SQ SCH ×4 (05:06→23:22)
[2017-12-19 05:41] LABS: Alanine Aminotransferase 484 U/L (12-78); Albumin 2.5 g/dL (3.4-5.0); Alkaline Phosphatase 135 U/L (45-117); Anion Gap 12 meq/L (5-15); Aspartate Aminotransferase 202 U/L (15-37); Blood Urea Nitrogen 22 mg/dL (7-18); Calcium 8.2 mg/dL (8.5-10.1); Carbon Dioxide 23.1 meq/L (21.0-32.0); Chloride 108 meq/L (98-107); Glomerular Filtration Rate Greater Than 89 mL/min (>89); Glucose,Random 135 mg/dL (74-106); Potassium 3.5 meq/L (3.5-5.1); Sodium 143 meq/L (136-145); Total Protein 7.3 g/dL (6.4-8.2)
--- NOTE | 2017-12-19 08:25 | P.PNCC ---
Subjective Subjective Remarks/Hospital Course: 67-year-old male with past medical history of head and neck cancer presents from home after being found unresponsive. Patient was found by EMS to have spontaneous respirations palpable pulse and blood pressure but markedly decreased level of consciousness, hypotensive with large amount of tube feeding contents in the oral cavity. Patient has history of head neck cancer and takes no oral medications takes all medications and feedings through PEG tube. Patient was last seen normal approximately at breakfast time on Tuesday and then family members found him unresponsive. Unknown downtime. Upon EMS arrival patient was assessed and suctioned and initial O2 saturations were 60% patient was placed on supplemental oxygen with improved ventilations and then subsequently intubated with a 7.5 endotracheal tube. Per EMS copious amounts of suctioning was performed and large amounts of tube feeding were suctioned. Patient presents now with endotracheal tube in place bilateral breath sounds to auscultation with bag valve ventilation and normotensive upon EMS presentation however initial blood pressure here mildly hypotensive with systolic pressure of 90 mmHg. Patient remains unresponsive. Family members not available. Patient with known allergies to narcotics. No other medical history is available. Subjective 12/12: Afebrile. Currently on propofol and fentanyl drips. Not really moving his left upper lower extremity. CT brain with CT angiogram brain ordered. Cannot do MRI due to retained metal metal in eye according to . 12/13: Sedated, arousable, orally intubated on mechanical ventilation 12/14: Sedated, arousable, orally intubated on mechanical ventilation. 12/15: Extubated yesterday, on nasal cannula tolerating well. Precedex to be titrated off this morning. Fentanyl patch resumed yesterday. Patient is awake and alert, knows he is in the hospital. He recognizes his family members. Minimal weakness on the left side. Moving right side well. Tolerating PEG feeds. ___ 12/17: Patient transferred to hospitalist service yesterday, but this morning was again found to be in respiratory distress. Concern for recurrent aspiration as he had high tube feed residuals via PEG. Transferred to [facility]. 12/18: Patient tolerated bipap well yesterday, had some agitation overnight which improved with seroquel. 12/19: back on [place] o2. clinically improving. denies complaints. SOB improving. Objective Vital Signs / I&O: Vital Signs 12/18/17 10:00 12/18/17 11:09 12/18/17 11:10 Temperature Pulse Rate 91 H 90 Respiratory Rate 21 Blood Pressure Pulse Oximetry 100 12/18/17 12:00 12/18/17 14:00 12/18/17 15:29 Temperature 37.3 C Pulse Rate 91 H 91 H 90 Respiratory Rate 29 H 27 H Blood Pressure 104/54 L Pulse Oximetry 97 12/18/17 16:00 12/18/17 18:00 12/18/17 19:45 Temperature 37.2 C Pulse Rate 93 H 89 86 Respiratory Rate 28 H 25 H Blood Pressure 159/73 H Pulse Oximetry 97 100 12/18/17 20:00 12/18/17 22:00 12/19/17 00:00 Temperature 37.7 C H 37.3 C Pulse Rate 91 H 101 H 92 H Respiratory Rate 33 H 29 H Blood Pressure 163/79 H 140/76 Pulse Oximetry 100 100 12/19/17 00:29 12/19/17 02:00 12/19/17 04:00 Temperature 37.3 C Pulse Rate 103 H 104 H 103 H Respiratory Rate 31 H 25 H Blood Pressure 136/80 Pulse Oximetry 99 12/19/17 04:08 12/19/17 06:00 12/19/17 07:40 Temperature Pulse Rate 100 H 104 H 104 H Respiratory Rate 27 H 20 Blood Pressure Pulse Oximetry 12/19/17 07:53 Temperature Pulse Rate Respiratory Rate Blood Pressure Pulse Oximetry 95 Intake & Output 12/18/17 12/19/17 12/19/17 18:59 06:59 18:59 Intake Total 400 / 400 1302 / 1302 Output Total 700 / 700 1250 / 1250 Balance -300 / -300 52 / 52 Weight 74 kg Intake: IV 100 / 100 1200 / 1200 NS + KCl 20 mEq Inj 1,000 ML @ 0 / 0 1000 / 1000 80 mls/hr IV.CONT .[id number] [facility] Rx#:[id number] Zosyn 4.5 GM Premix 4.5 gm In 100 / 100 200 / 200 100 ml @ 200 mls/hr IV.SIG Q6H [facility] Rx#:[id number] Tube Feeding 102 / 102 Water Bolus Amount 300 / 300 Output: Urine 700 / 700 Urine Amount (Catheter) 1250 / 1250 Indwelling Urethral Catheter 1250 / 1250 Other: Date of Last Bowel Movement 12/17/17 # Incontinent Bowel Movements 2 1 Result Diagrams: 12/19/17 03:47 12/19/17 03:47 Objective Remarks: GENERAL: Elderly male lying in bed, on nc o2, appears comfortable, no acute distress SKIN: Warm and dry HEENT: NCAT, PERRL NECK: Trachea midline. Scarring from prior neck dissection CARDIOVASCULAR: Regular rate and rhythm RESPIRATORY: Comfortably breathing on nc o2, equal chest rise. unlabored. speaks in full sentences. GASTROINTESTINAL: Soft, non-tender, non-distended. PEG tube present. MUSCULOSKELETAL: No peripheral edema NEUROLOGICAL: Awake and alert, answers questions appropriately, moving all extremities Assessment and Plan - Assessment and Plan Plan: Neuro/Psych: Acute encephalopathy- resolved Cerebrovascular accident Chronic benzodiazepine use with clonazepam 1 mg 3 times daily Chronic opioid use with fentanyl patches 25 mcg every 72 hours/found with 3 fentanyl patches on him Depression disorder NOS Fentanyl patch 25 mcg/h home dose. Seroquel 50 mg every 12 hourly as needed for agitation. s/p right frontal and occipital CVA, unable to do MRI brain secondary to retained metal in eye according to . * Has bilateral internal carotid artery stents, right carotid stent has ulcerated plaque with 80% stenosis. Per vascular consult, may need additional stent inside of original one in order to cover the ulceration and relieve the stenosis. Will need a carotid angio first for pre-op planning. * ASA, plavix CV: Elevated troponin-- resolved Essential hypertension- chronic Coronary artery disease- chronic Bilateral carotid artery stents- chronic Troponin peaked at 0.39, no longer trending Continue daily full-dose aspirin, plavix Continue amlodipine 10 mg daily/home medication for hypertension 2D echo showed EF 60-65%, moderate pulmonary HTN (PA pressure 32 mmHg), moderate AR, trace TR Resp: Acute respiratory failure-- recurrent- resolving. Acute COPD exacerbation Healthcare associated Aspiration pneumonia Extubated on 12/14, transferred back to [facility] 12/17 for bipap now back to [place] o2. continue 5 day course of steroids for presumed COPD exacerbation continue full 10 day course of zosyn for HCAP aspiration pneumonia. continue serial nebs PT consult OOB aggressive pulmonary toilet. GI: Chronic dysphagia requring PEG tube nutrition increase tube feeds back to goal. hold for residual >300 cc Famotidine for GI prophylaxis, change to PO Docusate sodium/senna 1 tablet twice daily for bowel regimen : d/c mccray catheter. Endo: SSI with Accu-Cheks every 6 hours to maintain euglycemia Renal: Monitor urine output ID: Day 8 of zosyn for pseudomonal/ E coli pneumonia, will continue for now as patient's respiratory status acutely worsened yesterday, likely for 10 day course MSK: PT evaluate and treat FEN: Hypokalemia Replace electrolytes as clinically indicated per ICU electrolyte protocol Access -Peripheral IV Prophylaxis -GI -famotidine -DVT -SCD/enoxaparin dispo: likely can transfer out of ICU later today. consult hospitalist service to assume care.
[2017-12-19] MEDS: Chlorhexidine 0.12% Oral Kit 15 ML UDC OROPHARYNG SCH ×2 (08:38→20:32)
[2017-12-19] MEDS: amLODIPine 10 MG Tablet PO SCH (08:39)
[2017-12-19] MEDS: clonazePAM 1 MG Tablet PO SCH ×2 (08:39→12:00)
[2017-12-19] MEDS: Aspirin 325 MG Tablet PO SCH (08:39)
[2017-12-19] MEDS: MethylPREDNISolone Sod Succinate Inj 125 MG/2 ML Vial IV.PUSH SCH (08:40)
[2017-12-19] MEDS: Senna/Docusate Sodium 8.6/50 MG Tablet PO SCH ×2 (08:40→20:41)
[2017-12-19] MEDS: Mirtazapine 15 MG Tablet PO SCH (08:40)
[2017-12-19] MEDS: Famotidine 20 MG Tablet PO SCH ×2 (08:40→20:41)
[2017-12-19 15:07] LABS: ABG Base Excess 0.7 mmol/L (-2-2); ABG PCO2 31 mmHg (38-42); ABG PO2 84 mmHG (61-120)
--- NOTE | 2017-12-19 16:39 | P.DIET ---
Nutritional Evaluation Type of nutrition evaluation: follow-up Nutrition consult regarding: Tube Feeding Screening comments: Transferred back to [facility] [place] on (12/17) Objective - Diagnosis Respiratory Failure, Aspiration - Objective % IBW: 110 (IBW - 166#) Body Weight Used for Calculations: Actual (82.9) Energy Needs - Lower Range (kCal/kg): 25 Energy Needs - Upper Range (kCal/kg): 30 Lower Limit kCal/kg (kCals): 2,073 Upper Limit kCal/kg (kCals): 2,487 Lower Limit Protein Factor (Grams per Kg): 1.2 Upper Limit Protein Factor (Grams per Kg): 1.5 Lower Protein Needs (Protein): 99 Upper Protein Needs (Protein): 124 Dietitian Reviewed in Medical Record: Curent medications, Intake & Output, Labs , Medical history, Tube feeding Diet Order: NPO Objective Comments: PMH: CAD, HTN, Throat/Tongue Cancer, Depression, PEG Tube Assessment Assessment: Pt remains at high nutrition risk with a TFing order for Jevity 1.5 @ 60 mls/hr goal. This will meet needs by providing 2160 kcals, 92 gms protein and 1094 mls of free water. TF is currently on hold and was running at only 30 mls/hr earlier today. Significant weight loss noted since admission. CBW = 74 kg. If pt is unable to tolerate goal TF, consider alternate nutrition support. Recommendations: Jevity 1.5 @ 60 mls/hr goal Dietitian to Monitor: Lab values, Intake & Output, Tube feeding tolerance, Weight change, Medical course
--- NOTE | 2017-12-19 17:08 | P.PNPAL ---
Reason for Visit Reason for visit: a. To assist with evaluation and management of symptoms including:shortness of breath, pain, altered mental status b. To assist medical decision maker(s) with: better understanding of current medical conditions; weighing benefits/burdens of medical treatment options; making medical treatment decisions. Subjective Subjective/Interval History: Follow up medically necessary for symptom management of dyspnea, altered mental status. Patient had been transferred out of ICU to the hospitalist service on 12/16, however on 12/17 he was found to be in respiratory distress again with concern for recurrent aspiration due to high tube feeding residuals. He was placed on BiPAP and tolerated it well however had some agitation overnight requiring administration of Seroquel. He was weaned from BiPAP down to nasal cannula O2 and was clinically improving in the morning. Plan was to transfer him back to the hospitalist service when this afternoon, he became acutely hypoxemic, somnolent and was placed back on BiPAP. Dr. Glaan discussed possibility of potentially requiring mechanical ventilation with the who stated that he would accept reintubation, however would not "want to be on a ventilator forever." The patient remains somewhat altered, unable to speak but able to write and was stating events that happened many years in the past as though they were current events. His states that he is confused intermittently and becoming more confused. The patient appears to be trying to express some of his medical history, however his says that much of it never happened. Sputum culture is positive for Pseudomonas aeruginosa, E. coli, beta strep, not group A. Blood culture was positive for Corynebacterium, not JK. Lab values today show WBC 13.6, hemoglobin 12.6, hematocrit 37.2, platelets 272, ABG pH 7.49, PCO2 31 , PaO2 84, saturation 95 on 50% BiPAP 18 IPAP/6 EPAP. Chemistry shows sodium 143, potassium 3.5, chloride 108, BUN 22, creatinine 0.73, calcium 8.2, AST 202 , ALT 484, alk phos 135, albumin 2.5, total protein 7.3. Case discussed with bedside RN. Family/Friend Interactions: I had a long conversation with the at bedside. Patient appeared to understand some of the conversation and became intermittently agitated, writing down his thoughts on paper, much of which were nonsensical. The states that he had had a tracheostomy before when he had the head and neck surgery but had been able to have that removed. She stated that he would not want to be on a vent however, but she would want to give him a chance. She expressed concern about how long to wait prior to making that decision I discussed the average intubation time 10-14 days prior to the insertion of the tracheostomy also noted that given the patient's prior history of surgery, chemotherapy, radiation and disturbances to oral mucosa and tracheal alterations, that the physician may want to proceed to tracheostomy sooner in his case. I recommended that she discuss this with her in his more lucid moments to try to gain a sense of his wishes would be. She states she does have a living will outlines his wishes, however but in light of that particular question, his wishes are not entirely clear. She is concerned that he will not be able to come back home due to his confusion. She is disabled due to chronic back pain and injury and would be unable to provide much physical support. Previously the patient had been independent ADLs occluding his tube feeding. His is concerned that with his confusion he will be unable to manage his own medications. In discussion with them both, they both agreed that he has become progressively weaker and in order to maximize his ability to remain home would likely need rehabilitation. This concern was addressed with counseling case manager, Elsa Lang who will address his discharge needs. Palliative care information was provided to the or any further concerns or questions. . Advance Directives Living Will: Copy in medical record Health Care Surrogate: Copy in medical record Durable Power of Cylinder Head Assembler: Never completed Advance Directives Date on File: 06/18/13 Health Care Surrogate Name and Number: Reji Rivas [phone] Alt: Howard Leonardo [phone] Objective Vital Signs: Vital Signs 12/18/17 18:00 12/18/17 19:45 12/18/17 20:00 Temperature 99.8 F H Pulse Rate 89 86 91 H Respiratory Rate 25 H 33 H Blood Pressure 163/79 H Pulse Oximetry 100 100 12/18/17 21:30 12/18/17 22:00 12/18/17 22:30 Temperature Pulse Rate 97 H 100 H 99 H Respiratory Rate 32 H 30 H 31 H Blood Pressure 155/79 H 169/84 H 163/83 H Pulse Oximetry 93 L 99 100 12/18/17 23:00 12/18/17 23:30 12/19/17 00:00 Temperature 99.2 F Pulse Rate 97 H 92 H 92 H Respiratory Rate 30 H 30 H 29 H Blood Pressure 155/78 H 136/72 140/76 Pulse Oximetry 98 99 100 12/19/17 00:29 12/19/17 00:30 12/19/17 01:00 Temperature Pulse Rate 103 H 99 H 105 H Respiratory Rate 31 H 29 H 30 H Blood Pressure 155/83 H 151/79 H Pulse Oximetry 100 99 12/19/17 01:30 12/19/17 02:00 12/19/17 02:30 Temperature Pulse Rate 104 H 106 H 108 H Respiratory Rate 27 H 31 H 16 Blood Pressure 134/67 143/77 H 157/80 H Pulse Oximetry 94 L 95 97 12/19/17 03:00 12/19/17 03:30 12/19/17 04:00 Temperature 99.2 F Pulse Rate 111 H 109 H 103 H Respiratory Rate 28 H 27 H 26 H Blood Pressure 156/80 H 134/70 136/80 Pulse Oximetry 99 99 98 12/19/17 04:08 12/19/17 04:30 12/19/17 05:00 Temperature Pulse Rate 100 H 92 H 89 Respiratory Rate 27 H 26 H 29 H Blood Pressure 113/59 L 112/61 Pulse Oximetry 96 97 12/19/17 05:30 12/19/17 06:00 12/19/17 06:30 Temperature Pulse Rate 95 H 99 H 96 H Respiratory Rate 23 23 22 Blood Pressure 133/75 174/80 H 132/72 Pulse Oximetry 98 92 L 100 12/19/17 07:00 12/19/17 07:30 12/19/17 07:40 Temperature Pulse Rate 90 97 H 104 H Respiratory Rate 25 H 24 20 Blood Pressure 134/69 147/83 H Pulse Oximetry 99 100 12/19/17 07:53 12/19/17 08:00 12/19/17 08:30 Temperature 97.0 F L Pulse Rate 101 H 99 H Respiratory Rate 23 27 H Blood Pressure 155/72 H 144/67 H Pulse Oximetry 95 97 95 12/19/17 09:00 12/19/17 09:30 12/19/17 10:00 Temperature Pulse Rate 102 H 94 H 97 H Respiratory Rate 31 H 26 H 18 Blood Pressure 137/67 146/67 H 148/78 H Pulse Oximetry 92 L 95 97 12/19/17 10:30 12/19/17 11:00 12/19/17 11:30 Temperature Pulse Rate 94 H 97 H 94 H Respiratory Rate 27 H 27 H 19 Blood Pressure 150/76 H 148/72 H 146/78 H Pulse Oximetry 95 87 L 93 L 12/19/17 12:00 12/19/17 12:30 12/19/17 13:00 Temperature 97.4 F L Pulse Rate 94 H 98 H 98 H Respiratory Rate 31 H 29 H 28 H Blood Pressure 148/76 H 138/82 135/71 Pulse Oximetry 93 L 92 L 79 L 12/19/17 13:30 12/19/17 14:00 12/19/17 14:30 Temperature Pulse Rate 101 H 87 97 H Respiratory Rate 33 H 25 H 28 H Blood Pressure 145/77 H 130/68 126/67 Pulse Oximetry 88 L 91 L 96 12/19/17 15:00 12/19/17 15:03 12/19/17 15:30 Temperature Pulse Rate 92 H 92 H 92 H Respiratory Rate 29 H 18 20 Blood Pressure 126/74 155/74 H Pulse Oximetry 96 98 12/19/17 16:00 Temperature 97.4 F L Pulse Rate 98 H Respiratory Rate 24 Blood Pressure 159/84 H Pulse Oximetry 96 Intake & Output 12/18/17 12/19/17 12/19/17 18:59 06:59 18:59 Intake Total 400 / 400 1302 / 1302 450 / 450 Output Total 700 / 700 1250 / 1250 Balance -300 / -300 52 / 52 450 / 450 Weight 163 lb 2.273 oz Intake: IV 100 / 100 1200 / 1200 450 / 450 NS + KCl 20 mEq Inj 1,000 ML @ 0 / 0 1000 / 1000 250 / 250 80 mls/hr IV.CONT .[id number] [facility] Rx#:[id number] Zosyn 4.5 GM Premix 4.5 gm In 100 / 100 200 / 200 200 / 200 100 ml @ 200 mls/hr IV.SIG Q6H HEATHER Rx#:[id number] Tube Feeding 102 / 102 Water Bolus Amount 300 / 300 Output: Urine 700 / 700 Urine Amount (Catheter) 1250 / 1250 Indwelling Urethral Catheter 1250 / 1250 Other: Date of Last Bowel Movement 12/17/17 # Incontinent Bowel Movements 2 1 Physical Exam: CONSTITUTIONAL/GENERAL: This is an adequately nourished patient, on BiPAP, mildly agitated TUBES/LINES/DRAINS:PIV, PEG tube, PIV. Salas catheter, SCDs NECK: Trachea midline. Supple, nontender. CARDIOVASCULAR: S1, S2 normal,no murmurs, gallops, or rubs. No JVD. Peripheral pulses symmetric. RESPIRATORY/CHEST: Symmetric, unlabored respirations. Breath sounds equal bilaterally. Coarse rhonchi throughout all anterior lung scott, diminished in the bases. On BiPAP. GASTROINTESTINAL: Abdomen soft, non-tender, nondistended. No guarding.Hypoactive sounds present. PEG tube intact GENITOURINARY: Without palpable bladder distension. Salas catheter in place. MUSCULOSKELETAL: Extremities without clubbing or cyanosis, trace generalized edema. No joint tenderness or effusion noted. No calf tenderness. No mottling or clubbing. LUE weakness. Able to or assistant fingers, push/pull, raise arm against gravity. NEUROLOGICAL: Awake, follows commands, intermittent regression of thoughts to the past. PSYCHIATRIC: Mildly agitated. . Diagnostic Tests Laboratory: Laboratory Results - last 72 hr 12/16/17 12/16/17 12/17/17 17:15 21:04 02:03 WBC RBC Hgb Hct MCV MCH MCHC RDW Plt Count MPV Neut % (Auto) Lymph % (Auto) Brown % (Auto) Eos % (Auto) Baso % (Auto) Neut # (Auto) Lymph # (Auto) Brown # (Auto) Eos # (Auto) Baso # (Auto) WBC Differential Differential Comment Puncture Site Patient Temperature O2 Saturation ABG pH ABG pCO2 ABG pO2 ABG HCO3 ABG O2 Content ABG Base Excess ABG Methemoglobin Basilio Test Hemoglobin Carboxyhemoglobin O2 Delivery Device Liter Flow Vent Setting Inspired O2 Critical Value Sodium Potassium Chloride Carbon Dioxide Anion Gap BUN Creatinine Estimated GFR POC Glucose 122 H 102 122 H Random Glucose Calcium Total Bilirubin AST ALT Alkaline Phosphatase Total Protein Albumin 12/17/17 12/17/17 12/17/17 03:43 05:11 08:10 WBC RBC Hgb Hct MCV MCH MCHC RDW Plt Count MPV Neut % (Auto) Lymph % (Auto) Brown % (Auto) Eos % (Auto) Baso % (Auto) Neut # (Auto) Lymph # (Auto) Brown # (Auto) Eos # (Auto) Baso # (Auto) WBC Differential Differential Comment Puncture Site Left brachial Patient Temperature 98.6 O2 Saturation 92 ABG pH 7.45 H ABG pCO2 37 L ABG pO2 71 ABG HCO3 25 ABG O2 Content 19.8 ABG Base Excess 1.1 ABG Methemoglobin 1.0 Basilio Test Present Hemoglobin 15.3 Carboxyhemoglobin 1.3 O2 Delivery Device Mask Liter Flow 8.00 Vent Setting Inspired O2 50 Critical Value No Sodium 145 Potassium 3.3 L Chloride 109 H Carbon Dioxide 24.8 Anion Gap 11 BUN 19 H Creatinine 0.76 Estimated GFR Greater than 89 POC Glucose 110 Random Glucose 145 H Calcium 9.4 Total Bilirubin AST ALT Alkaline Phosphatase Total Protein Albumin 12/17/17 12/17/17 12/17/17 08:10 12:10 12:45 WBC 11.4 H RBC 4.22 L Hgb 14.2 Hct 41.8 MCV 98.9 MCH 33.6 MCHC 33.9 RDW 13.9 Plt Count 225 D MPV 9.2 Neut % (Auto) 75.8 H Lymph % (Auto) 12.8 Brown % (Auto) 9.6 H Eos % (Auto) 1.3 Baso % (Auto) 0.5 Neut # (Auto) 8.6 H Lymph # (Auto) 1.5 Brown # (Auto) 1.1 H Eos # (Auto) 0.2 Baso # (Auto) 0.1 WBC Differential . Differential Comment Auto diff final Puncture Site Left brachial Patient Temperature 98.6 O2 Saturation 93 ABG pH 7.47 H ABG pCO2 36 L ABG pO2 73 ABG HCO3 25 ABG O2 Content 19.4 ABG Base Excess 1.9 ABG Methemoglobin 1.4 Basilio Test Y Hemoglobin 14.9 Carboxyhemoglobin 0.8 O2 Delivery Device Bipap Liter Flow Vent Setting Ipap 12 epap 6 Inspired O2 60 Critical Value No Sodium Potassium Chloride Carbon Dioxide Anion Gap BUN Creatinine Estimated GFR POC Glucose 113 H Random Glucose Calcium Total Bilirubin AST ALT Alkaline Phosphatase Total Protein Albumin 12/17/17 12/17/17 12/18/17 18:39 23:40 03:35 WBC RBC Hgb Hct MCV MCH MCHC RDW Plt Count MPV Neut % (Auto) Lymph % (Auto) Brown % (Auto) Eos % (Auto) Baso % (Auto) Neut # (Auto) Lymph # (Auto) Brown # (Auto) Eos # (Auto) Baso # (Auto) WBC Differential Differential Comment Puncture Site Patient Temperature O2 Saturation ABG pH ABG pCO2 ABG pO2 ABG HCO3 ABG O2 Content ABG Base Excess ABG Methemoglobin Basilio Test Hemoglobin Carboxyhemoglobin O2 Delivery Device Liter Flow Vent Setting Inspired O2 Critical Value Sodium 145 Potassium 3.4 L Chloride 109 H Carbon Dioxide 25.8 Anion Gap 10 BUN 21 H Creatinine 0.70 Estimated GFR Greater than 89 POC Glucose 98 101 Random Glucose 91 Calcium 8.7 Total Bilirubin AST ALT Alkaline Phosphatase Total Protein Albumin 12/18/17 12/18/17 12/18/17 03:55 05:33 13:55 WBC 12.9 H RBC 4.09 L Hgb 13.7 Hct 39.9 MCV 97.4 MCH 33.5 MCHC 34.3 RDW 13.9 Plt Count 220 MPV 9.2 Neut % (Auto) 72.9 H Lymph % (Auto) 11.7 Brown % (Auto) 13.5 H Eos % (Auto) 1.0 Baso % (Auto) 0.9 Neut # (Auto) 9.4 H Lymph # (Auto) 1.5 Brown # (Auto) 1.7 H Eos # (Auto) 0.1 Baso # (Auto) 0.1 WBC Differential . Differential Comment Auto diff final Puncture Site Patient Temperature O2 Saturation ABG pH ABG pCO2 ABG pO2 ABG HCO3 ABG O2 Content ABG Base Excess ABG Methemoglobin Basilio Test Hemoglobin Carboxyhemoglobin O2 Delivery Device Liter Flow Vent Setting Inspired O2 Critical Value Sodium Potassium Chloride Carbon Dioxide Anion Gap BUN Creatinine Estimated GFR POC Glucose 92 108 Random Glucose Calcium Total Bilirubin AST ALT Alkaline Phosphatase Total Protein Albumin 12/18/17 12/18/17 12/19/17 17:13 23:34 03:47 WBC 13.6 H RBC 3.78 L Hgb 12.6 L Hct 37.2 L MCV 98.4 MCH 33.2 MCHC 33.8 RDW 14.1 Plt Count 272 MPV 9.6 Neut % (Auto) 89.6 H Lymph % (Auto) 5.7 L Brown % (Auto) 4.5 Eos % (Auto) 0.0 Baso % (Auto) 0.2 Neut # (Auto) 12.2 H Lymph # (Auto) 0.8 L Brown # (Auto) 0.6 Eos # (Auto) 0.0 Baso # (Auto) 0.0 WBC Differential . Differential Comment Auto diff final Puncture Site Patient Temperature O2 Saturation ABG pH ABG pCO2 ABG pO2 ABG HCO3 ABG O2 Content ABG Base Excess ABG Methemoglobin Basilio Test Hemoglobin Carboxyhemoglobin O2 Delivery Device Liter Flow Vent Setting Inspired O2 Critical Value Sodium Potassium Chloride Carbon Dioxide Anion Gap BUN Creatinine Estimated GFR POC Glucose 104 137 H Random Glucose Calcium Total Bilirubin AST ALT Alkaline Phosphatase Total Protein Albumin 12/19/17 12/19/17 12/19/17 03:47 05:03 11:32 WBC RBC Hgb Hct MCV MCH MCHC RDW Plt Count MPV Neut % (Auto) Lymph % (Auto) Brown % (Auto) Eos % (Auto) Baso % (Auto) Neut # (Auto) Lymph # (Auto) Brown # (Auto) Eos # (Auto) Baso # (Auto) WBC Differential Differential Comment Puncture Site Patient Temperature O2 Saturation ABG pH ABG pCO2 ABG pO2 ABG HCO3 ABG O2 Content ABG Base Excess ABG Methemoglobin Basilio Test Hemoglobin Carboxyhemoglobin O2 Delivery Device Liter Flow Vent Setting Inspired O2 Critical Value Sodium 143 Potassium 3.5 Chloride 108 H Carbon Dioxide 23.1 Anion Gap 12 BUN 22 H Creatinine 0.73 Estimated GFR Greater than 89 POC Glucose 138 H 121 H Random Glucose 135 H Calcium 8.2 L Total Bilirubin 0.8 AST 202 H ALT 484 H Alkaline Phosphatase 135 H Total Protein 7.3 Albumin 2.5 L 12/19/17 15:00 WBC RBC Hgb Hct MCV MCH MCHC RDW Plt Count MPV Neut % (Auto) Lymph % (Auto) Brown % (Auto) Eos % (Auto) Baso % (Auto) Neut # (Auto) Lymph # (Auto) Brown # (Auto) Eos # (Auto) Baso # (Auto) WBC Differential Differential Comment Puncture Site Right radial Patient Temperature 98.6 O2 Saturation 95 ABG pH 7.49 H ABG pCO2 31 L ABG pO2 84 ABG HCO3 24 ABG O2 Content 17.9 ABG Base Excess 0.7 ABG Methemoglobin 1.4 Basilio Test Present Hemoglobin 13.4 Carboxyhemoglobin 0.7 O2 Delivery Device Bipap 18ipap/6epap Liter Flow Vent Setting Inspired O2 50 Critical Value No Sodium Potassium Chloride Carbon Dioxide Anion Gap BUN Creatinine Estimated GFR POC Glucose Random Glucose Calcium Total Bilirubin AST ALT Alkaline Phosphatase Total Protein Albumin Result Diagrams: 12/19/17 03:47 12/19/17 03:47 Microbiology: Microbiology 12/18/17 05:14 Aerobic Blood Culture - Preliminary Blood - Peripheral No growth in 1 day Anaerobic Blood Culture - Final QNS - See aerobic report. 12/18/17 05:05 Aerobic Blood Culture - Preliminary Blood - Peripheral No growth in 1 day Anaerobic Blood Culture - Preliminary No growth in 1 day Imaging: Chest X-Ray 12/11/17 22:21 CONCLUSION: 1. Underinflation with perihilar interstitial prominence which could be related to the underinflation or could represent pulmonary edema. No airspace consolidation is identified. 2. Endotracheal tube tip measures 2.7 cm from the rosette. Cervical Spine CT 12/12/17 00:00 CONCLUSION: No acute cervical spine abnormality is identified. Head CT 12/12/17 00:00 CONCLUSION: No acute intracranial abnormality is identified. . Head CTA 12/12/17 00:00 CONCLUSION: 1. Negative CTA Head. Neck CTA 12/12/17 00:00 CONCLUSION: 1. Atelectatic calcifications and areas of ulceration involving the origin of the right internal carotid artery with approximate 70-80% stenosis right at the takeoff of the right ICA prior to the start of the patient's internal coronary stent. Head CT 12/12/17 12:29 CONCLUSION: 1. Subtle areas of low attenuation are now seen in the right frontal and occipital regions of concern for areas of evolving infarction. There is no hemorrhage or mass effect. . Chest X-Ray 12/13/17 06:00 CONCLUSION: Mildly increased perihilar interstitial and airspace opacities. Although nonspecific the appearance could be related to pulmonary edema in the appropriate clinical setting. Chest X-Ray 12/17/17 11:50 CONCLUSION: Interval extubation with improved lung exam. Procedures: 12/11/2017-Intubation- in the field Assessment and Plan - Disease Oriented Problem List (1) Acute respiratory failure (2) Hypertension (3) Depression (4) Coronary artery disease (5) History of head and neck cancer Pertinent Non-Medical Issues: Psychosocial: Patient was born in [place], [place]. He moved to [place] where he lived for approximately 20 years and then moved to [place] with for another approximate 20 years. Patient recently moved to [place] 5 years ago. Patient is been to his current for 48 years. They have 2 adult daughters, 8 grandchildren and great-grandchildren. 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 Spiritual: No spiritism affiliation. Legal: Patient has completed healthcare surrogate and living will. (Spouse and daughter provided with copies from last hospital hospitalization) Ethical issues impacting care: None identified at this time. Important Contacts: Spouse- Evelyn Mendoza S- [phone] Daughter- Malissa Lockhart- [phone] Prognosis: Mr. 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 Patient was brought to the emergency room by EMS on was found unresponsive at home with copious oral secretions identified as tube feeding. When EMS arrived patient was found to have spontaneous respirations, palpable pulse and was hypotensive with SBP in the 90s, and decreased level of consciousness. Patient`s O2 saturation was 60% at scene, was intubated and suctioned. Clinical course complicated with acute respiratory failure. 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 . Code Status: Full Code Plan: PLAN: Legal decision maker: Patient is currently intubated, sedated on mechanical ventilation. It is unknown at this time with the patient will be able to regain capacity. Patient's healthcare surrogate is his Evelyn Mendoza and his alternate healthcare surrogate is his daughter Malissa Lawrence. Goals: Aggressive. Family is hopeful at this time that patient will recover and be able to be medically extubated. Code status was addressed and family at this point wants patient to be a full code though patient`s stated that if patient would require tracheostomy placement, she most likely will not proceed with that. CODE STATUS: Full Code SYMPTOMS: * Shortness of breath: Patient aspirated from tube feedings and required intubation. Extubated to 2 L nasal cannula, suffered respiratory decline and compromise, transferred to ICU, now on BiPAP with frequent wet cough. Dyspnea worsened with activity. Remains on Zosyn for treatment of aspiration pneumonia. Aggressive pulmonary toilet. * Altered mental status: Patient was found with altered mentation at home and unresponsive. Repeat Head CT on 12/12 showed right hemispheric stroke in the frontal occipital area. Currently spontaneously moving right side and LLE, LUE weak. Mentation confused today, not at his baseline per his . Transgressing back to earlier events as though they are current. Requires Seroquel 100 mg twice daily, PRN intermittently for agitation. He has received 3 doses in the last 4 days. Palliative care will continue to follow the patient during hospital course as condition evolves, to assist patient/decision-maker with understanding of their medical conditions, weighing benefits/burdens of treatment options, for clarification of goals of treatment. Additionally will assist with any symptoms of palliative concern Attestation Attestation: To help prompt me to consider important information that might be impacting today's encounter and assessment, information from prior notes written by myself or my colleagues may have been "brought forward" into today's note. My signature on this note, however, is an attestation that I personally performed the exam, history, and/or decision-making noted today, and, unless otherwise indicated, the interactions with patient, family, and staff as well as the review of records all occurred today. I also attest that the listed assessment and stated plan reflect my best clinical judgment today based on the combination of historical information, prior notes, and today's exam/ interactions. When time spent is documented, it refers only to time spent today by the signer, or if indicated, combined time spent today by collaborating physician/nurse practitioner. .
[2017-12-19] MEDS: clonazePAM 0.5 MG Tablet PO SCH (17:13)
[2017-12-19] MEDS: QUEtiapine 100 MG Tablet PO PRN (18:49)
[2017-12-19] MEDS: Enoxaparin Inj 40 MG/0.4 ML Syringe SQ SCH (23:22)
[2017-12-20] MEDS ORDERED: Labetalol HCl Inj 100 MG/20 ML Vial IV.PUSH PRN (04:00)
[2017-12-20] MEDS: Oral Hygiene Kit OROPHARYNG SCH ×3 (05:09→16:02)
[2017-12-20] MEDS: Piperacil/Tazo 4.5 GM Premix 4.5 GM/100 ML BAG IV.SIG SCH ×3 (05:20→17:34)
[2017-12-20] MEDS: Insulin NovoLOG Aspart Correctional Sugar Inj SQ SCH ×3 (06:05→17:34)
[2017-12-20] MEDS: Chlorhexidine 0.12% Oral Kit 15 ML UDC OROPHARYNG SCH ×2 (08:28→20:05)
[2017-12-20] MEDS: Aspirin 325 MG Tablet PO SCH (08:28)
[2017-12-20] MEDS: amLODIPine 10 MG Tablet PO SCH (08:29)
[2017-12-20] MEDS: clonazePAM 0.5 MG Tablet PO SCH ×3 (08:29→17:34)
[2017-12-20] MEDS: Famotidine 20 MG Tablet PO SCH ×2 (08:29→20:04)
[2017-12-20] MEDS: Senna/Docusate Sodium 8.6/50 MG Tablet PO SCH ×2 (08:29→20:04)
[2017-12-20] MEDS: Mirtazapine 15 MG Tablet PO SCH (08:30)
[2017-12-20] MEDS: MethylPREDNISolone Sod Succinate Inj 125 MG/2 ML Vial IV.PUSH SCH (08:30)
--- NOTE | 2017-12-20 08:31 | XR ---
EXAM DATE: 12/20/2017 8:26 AM EDT AGE/SEX: 67 years / Male INDICATIONS: Respiratory distress. CLINICAL DATA: This is the patient's subsequent encounter. Patient reports that signs and symptoms h ave been present for 4 - 6 days and indicates a pain score of Nonresponsive. MEDICAL/SURGICAL HISTORY: Non-responsive. Non-responsive. [place] [facility] [place]. . FINDINGS: Single AP view of the thorax demonstrates prominence of the right hilum with mild diffuse interstitia l prominence. These changes appear similar to the previous examination dated 12/17/2017. There is no si gnificant pleural effusion. The osseous structures demonstrate degenerative changes but are otherwise intact. CONCLUSION: Continued prominence of the right bethel with continued infiltrate predominantly within the right lung. Changes are stable compared to previous. At some point, CT imaging would be of benefit to exclude ri ght hilar mass if this has not already been performed. Electronically signed by: Iglesia Pat MD 12/20/2017 8:29 AM EDT
--- NOTE | 2017-12-20 10:27 | P.PNPAL ---
Reason for Visit Reason for visit: a. To assist with evaluation and management of symptoms including:shortness of breath, cough, altered mental status b. To assist medical decision maker(s) with: better understanding of current medical conditions; weighing benefits/burdens of medical treatment options; making medical treatment decisions. Subjective Subjective/Interval History: Follow up medically necessary for symptom management of dyspnea, cough, altered mental status and goals of medical treatment. He wa improving and had been weaned off of BiPAP today to 6 L nasal cannula, however abruptly desaturated to 56% requiring return to BiPAP. He was dyspneic overnight, tachypneic with respiratory rates up to 32, associated with some mild agitation and confusion. Due to his agitation, Klonopin 0.25 mg 3 times daily was initiated. He received his first 2 doses overnight. He required 1 dose of PRN Seroquel 100 mg overnight. He is now lethargic, arousable, weakly following commands. RN reports that he has been confused this morning, but less agitated. He is oriented to self and place but retreats in time, confusing past events with current events. He is oriented to and recognizes family, but does not have any understanding of why he is in the hospital or the extent of his disease. Symptoms are moderate, waxing and waning, improving with family interaction, worsening overnight. He continues to have a wet, rhonchorous cough. He has difficulty expectorating and moving the sputum. His states this is a chronic problem at home as well. He is currently receiving acetylcysteine 2 mL with DuoNeb 1 ampule every 4 hours and has albuterol/DuoNeb as needed. He describes the cough as intermittent, frequent, moderate to severe intensity, with no known exacerbating or relieving factors. Chest x-ray today shows continued prominence of the right bethel with continued infiltrate predominantly within the right lung. Changes are stable compared to previous. Radiology recommends at some point, CT imaging would be of benefit to exclude right hilar mass if this has not already been performed. Case discussed with bedside RN. . Family/Friend Interactions: Met with at bedside who states that her daughters and the patient's mother like a family meeting to get their questions answered. Family meeting has been arranged for 1 p.m. 12/21. Discussed patient's current progress with who again has multiple questions regarding his prognosis. Is concerned about his confusion and agitation, as that is quite different from his prior baseline and she is questioning whether this is related to his stroke or was it part of the anoxic injury suspected to have occurred at home. She provided the history that she had laid down in the afternoon as she was feeling poorly, and awoke at 4 PM to find her sleeping on the couch. She stated that was unusual because he usually sat in his recliner after his bolus feedings to maintain head elevation during digestion. She thought he was just tired and so let him rest undisturbed until about 8:00 when she attempted to wake him up so he could go to bed and get restful sleep. At that time she realized that he was unresponsive rather than sleeping and she was unable to arouse him verbal and tactile stimuli. 911 was summoned and reported oxygen saturations in the low 60s which improved with bag valve mask ventilations at 20 L/min to the mid to high 80s and then to the low 90s with intubation. It is unknown how long he was severely hypoxic. He had no intact gag reflex on initial intubation in the field, however did recover gag reflex by the second respiratory evaluation. Upon extubation days after admission, he was alert, knew he was in the hospital , recognized his family members and followed commands which is consistent with his current mental state, however he is now regressing back in time more frequently forgetting that he is in the hospital and needs reminding frequently. His is concerned that she will not be able to bring him home with the confusion and inability to follow directions. He had previously been completely independent with his care, and had spent the day of admission painting a door and doing mechanical work on a car. . Advance Directives Living Will: Copy in medical record Health Care Surrogate: Copy in medical record Durable Power of Clinical Informatics Specialist: Never completed Advance Directives Date on File: 06/18/13 Health Care Surrogate Name and Number: Reji Rivas [phone] Alt: Howard Leonardo [phone] Objective Vital Signs: Vital Signs 12/19/17 10:30 12/19/17 11:00 12/19/17 11:30 Temperature Pulse Rate 94 H 97 H 94 H Respiratory Rate 27 H 27 H 19 Blood Pressure 150/76 H 148/72 H 146/78 H Pulse Oximetry 95 87 L 93 L 12/19/17 12:00 12/19/17 12:30 12/19/17 13:00 Temperature 97.4 F L Pulse Rate 94 H 98 H 98 H Respiratory Rate 31 H 29 H 28 H Blood Pressure 148/76 H 138/82 135/71 Pulse Oximetry 93 L 92 L 79 L 12/19/17 13:30 12/19/17 14:00 12/19/17 14:30 Temperature Pulse Rate 101 H 87 97 H Respiratory Rate 33 H 25 H 28 H Blood Pressure 145/77 H 130/68 126/67 Pulse Oximetry 88 L 91 L 96 12/19/17 15:00 12/19/17 15:03 12/19/17 15:30 Temperature Pulse Rate 92 H 92 H 92 H Respiratory Rate 29 H 18 20 Blood Pressure 126/74 155/74 H Pulse Oximetry 96 98 12/19/17 16:00 12/19/17 18:00 12/19/17 19:36 Temperature 97.4 F L Pulse Rate 98 H 104 H 104 H Respiratory Rate 24 16 Blood Pressure 159/84 H Pulse Oximetry 96 99 12/19/17 20:00 12/19/17 22:00 12/19/17 22:30 Temperature 98.1 F Pulse Rate 109 H 122 H 125 H Respiratory Rate 20 27 H Blood Pressure 164/76 H 157/77 H Pulse Oximetry 99 92 L 12/19/17 23:00 12/19/17 23:30 12/19/17 23:37 Temperature Pulse Rate 119 H 114 H 110 H Respiratory Rate 21 15 20 Blood Pressure 136/63 147/84 H Pulse Oximetry 91 L 96 12/20/17 00:00 12/20/17 00:30 12/20/17 01:00 Temperature Pulse Rate 119 H 119 H 116 H Respiratory Rate 26 H 35 H 26 H Blood Pressure 139/75 137/82 159/87 H Pulse Oximetry 92 L 91 L 94 L 12/20/17 01:30 12/20/17 02:00 12/20/17 02:30 Temperature Pulse Rate 115 H 114 H 117 H Respiratory Rate 30 H 29 H 26 H Blood Pressure 172/84 H 182/82 H 183/86 H Pulse Oximetry 95 96 95 12/20/17 02:33 12/20/17 02:48 12/20/17 03:00 Temperature Pulse Rate 115 H 125 H 111 H Respiratory Rate 32 H 29 H 17 Blood Pressure 182/87 H 188/87 H 171/86 H Pulse Oximetry 95 96 94 L 12/20/17 03:12 12/20/17 03:30 12/20/17 03:35 Temperature Pulse Rate 113 H 114 H 110 H Respiratory Rate 26 H 23 20 Blood Pressure 170/85 H 193/92 H Pulse Oximetry 96 91 L 12/20/17 03:57 12/20/17 04:00 12/20/17 04:30 Temperature Pulse Rate 120 H 119 H 87 Respiratory Rate 28 H 29 H 25 H Blood Pressure 195/83 H 188/86 H 167/78 H Pulse Oximetry 95 93 L 91 L 12/20/17 05:00 12/20/17 05:30 12/20/17 06:00 Temperature Pulse Rate 96 H 88 93 H Respiratory Rate 35 H 25 H 26 H Blood Pressure 176/84 H 174/82 H 168/79 H Pulse Oximetry 93 L 94 L 92 L 12/20/17 06:30 12/20/17 07:00 12/20/17 07:30 Temperature Pulse Rate 98 H 105 H 102 H Respiratory Rate 26 H 26 H 23 Blood Pressure 164/89 H 163/90 H 161/75 H Pulse Oximetry 92 L 92 L 93 L 12/20/17 08:00 12/20/17 08:07 12/20/17 08:30 Temperature 100.5 F H Pulse Rate 100 H 96 H 101 H Respiratory Rate 32 H 20 29 H Blood Pressure 166/88 H 178/81 H Pulse Oximetry 92 L 93 L 96 Intake & Output 12/19/17 12/20/17 12/20/17 18:59 06:59 18:59 Intake Total 1052 / 1052 825 / 825 Output Total 1000 / 1000 700 / 700 Balance 52 / 52 125 / 125 Weight 163 lb 2.273 oz Intake: IV 550 / 550 200 / 200 NS + KCl 20 mEq Inj 1,000 ML @ 250 / 250 80 mls/hr IV.CONT .[id number] HEATHER Rx#:[id number] Zosyn 4.5 GM Premix 4.5 gm In 300 / 300 200 / 200 100 ml @ 200 mls/hr IV.SIG Q6H HEATHER Rx#:[id number] Tube Feeding 202 / 202 325 / 325 Water Bolus Amount 300 / 300 300 / 300 Output: Urine 700 / 700 Urine Amount (Catheter) 1000 / 1000 Indwelling Urethral Catheter 1000 / 1000 Other: # Voids 1 Date of Last Bowel Movement 12/19/17 # Incontinent Bowel Movements 1 Physical Exam: CONSTITUTIONAL/GENERAL: This is an adequately nourished patient, lethargic, arousable, in no acute distress. TUBES/LINES/DRAINS:PIV, PEG tube, PIV. Salas catheter, SCDs NECK: Trachea midline. Supple, nontender. CARDIOVASCULAR: S1, S2 normal,no murmurs, gallops, or rubs. No JVD. Peripheral pulses symmetric. RESPIRATORY/CHEST: Symmetric, unlabored respirations. Breath sounds equal bilaterally. Coarse rhonchi throughout all anterior lung scott, diminished in the bases. On nasal cannula O2. GASTROINTESTINAL: Abdomen soft, non-tender, nondistended. No guarding.Hypoactive sounds present. PEG tube intact GENITOURINARY: Without palpable bladder distension. Salas reinserted after removal yesterday, secondary to urinary retention. MUSCULOSKELETAL: Extremities without clubbing or cyanosis, trace generalized edema. No joint tenderness or effusion noted. No calf tenderness. No mottling or clubbing. LUE weakness. NEUROLOGICAL: Sleepy, lethargic, oriented to self and intermittently to place, with poor insight into purpose, not oriented to time. Recognizes family. PSYCHIATRIC: Lethargic. . Diagnostic Tests Laboratory: Laboratory Results - last 72 hr 12/17/17 12/17/17 12/17/17 12:10 12:45 18:39 WBC RBC Hgb Hct MCV MCH MCHC RDW Plt Count MPV Neut % (Auto) Lymph % (Auto) Dolores % (Auto) Eos % (Auto) Baso % (Auto) Neut # (Auto) Lymph # (Auto) Dolores # (Auto) Eos # (Auto) Baso # (Auto) WBC Differential Differential Comment Puncture Site Left brachial Patient Temperature 98.6 O2 Saturation 93 ABG pH 7.47 H ABG pCO2 36 L ABG pO2 73 ABG HCO3 25 ABG O2 Content 19.4 ABG Base Excess 1.9 ABG Methemoglobin 1.4 Basilio Test Y Hemoglobin 14.9 Carboxyhemoglobin 0.8 O2 Delivery Device Bipap Vent Setting Ipap 12 epap 6 Inspired O2 60 Critical Value No Sodium Potassium Chloride Carbon Dioxide Anion Gap BUN Creatinine Estimated GFR POC Glucose 113 H 98 Random Glucose Calcium Total Bilirubin AST ALT Alkaline Phosphatase Total Protein Albumin 12/17/17 12/18/17 12/18/17 23:40 03:35 03:55 WBC 12.9 H RBC 4.09 L Hgb 13.7 Hct 39.9 MCV 97.4 MCH 33.5 MCHC 34.3 RDW 13.9 Plt Count 220 MPV 9.2 Neut % (Auto) 72.9 H Lymph % (Auto) 11.7 Dolores % (Auto) 13.5 H Eos % (Auto) 1.0 Baso % (Auto) 0.9 Neut # (Auto) 9.4 H Lymph # (Auto) 1.5 Dolores # (Auto) 1.7 H Eos # (Auto) 0.1 Baso # (Auto) 0.1 WBC Differential . Differential Comment Auto diff final Puncture Site Patient Temperature O2 Saturation ABG pH ABG pCO2 ABG pO2 ABG HCO3 ABG O2 Content ABG Base Excess ABG Methemoglobin Basilio Test Hemoglobin Carboxyhemoglobin O2 Delivery Device Vent Setting Inspired O2 Critical Value Sodium 145 Potassium 3.4 L Chloride 109 H Carbon Dioxide 25.8 Anion Gap 10 BUN 21 H Creatinine 0.70 Estimated GFR Greater than 89 POC Glucose 101 Random Glucose 91 Calcium 8.7 Total Bilirubin AST ALT Alkaline Phosphatase Total Protein Albumin 12/18/17 12/18/17 12/18/17 05:33 13:55 17:13 WBC RBC Hgb Hct MCV MCH MCHC RDW Plt Count MPV Neut % (Auto) Lymph % (Auto) Dolores % (Auto) Eos % (Auto) Baso % (Auto) Neut # (Auto) Lymph # (Auto) Dolores # (Auto) Eos # (Auto) Baso # (Auto) WBC Differential Differential Comment Puncture Site Patient Temperature O2 Saturation ABG pH ABG pCO2 ABG pO2 ABG HCO3 ABG O2 Content ABG Base Excess ABG Methemoglobin Basilio Test Hemoglobin Carboxyhemoglobin O2 Delivery Device Vent Setting Inspired O2 Critical Value Sodium Potassium Chloride Carbon Dioxide Anion Gap BUN Creatinine Estimated GFR POC Glucose 92 108 104 Random Glucose Calcium Total Bilirubin AST ALT Alkaline Phosphatase Total Protein Albumin 12/18/17 12/19/17 12/19/17 23:34 03:47 03:47 WBC 13.6 H RBC 3.78 L Hgb 12.6 L Hct 37.2 L MCV 98.4 MCH 33.2 MCHC 33.8 RDW 14.1 Plt Count 272 MPV 9.6 Neut % (Auto) 89.6 H Lymph % (Auto) 5.7 L Dolores % (Auto) 4.5 Eos % (Auto) 0.0 Baso % (Auto) 0.2 Neut # (Auto) 12.2 H Lymph # (Auto) 0.8 L Dolores # (Auto) 0.6 Eos # (Auto) 0.0 Baso # (Auto) 0.0 WBC Differential . Differential Comment Auto diff final Puncture Site Patient Temperature O2 Saturation ABG pH ABG pCO2 ABG pO2 ABG HCO3 ABG O2 Content ABG Base Excess ABG Methemoglobin Basilio Test Hemoglobin Carboxyhemoglobin O2 Delivery Device Vent Setting Inspired O2 Critical Value Sodium 143 Potassium 3.5 Chloride 108 H Carbon Dioxide 23.1 Anion Gap 12 BUN 22 H Creatinine 0.73 Estimated GFR Greater than 89 POC Glucose 137 H Random Glucose 135 H Calcium 8.2 L Total Bilirubin 0.8 AST 202 H ALT 484 H Alkaline Phosphatase 135 H Total Protein 7.3 Albumin 2.5 L 12/19/17 12/19/17 12/19/17 05:03 11:32 15:00 WBC RBC Hgb Hct MCV MCH MCHC RDW Plt Count MPV Neut % (Auto) Lymph % (Auto) Dolores % (Auto) Eos % (Auto) Baso % (Auto) Neut # (Auto) Lymph # (Auto) Dolores # (Auto) Eos # (Auto) Baso # (Auto) WBC Differential Differential Comment Puncture Site Right radial Patient Temperature 98.6 O2 Saturation 95 ABG pH 7.49 H ABG pCO2 31 L ABG pO2 84 ABG HCO3 24 ABG O2 Content 17.9 ABG Base Excess 0.7 ABG Methemoglobin 1.4 Basilio Test Present Hemoglobin 13.4 Carboxyhemoglobin 0.7 O2 Delivery Device Bipap 18ipap/6epap Vent Setting Inspired O2 50 Critical Value No Sodium Potassium Chloride Carbon Dioxide Anion Gap BUN Creatinine Estimated GFR POC Glucose 138 H 121 H Random Glucose Calcium Total Bilirubin AST ALT Alkaline Phosphatase Total Protein Albumin 12/19/17 12/19/17 12/20/17 17:16 23:18 05:08 WBC RBC Hgb Hct MCV MCH MCHC RDW Plt Count MPV Neut % (Auto) Lymph % (Auto) Dolores % (Auto) Eos % (Auto) Baso % (Auto) Neut # (Auto) Lymph # (Auto) Dolores # (Auto) Eos # (Auto) Baso # (Auto) WBC Differential Differential Comment Puncture Site Patient Temperature O2 Saturation ABG pH ABG pCO2 ABG pO2 ABG HCO3 ABG O2 Content ABG Base Excess ABG Methemoglobin Basilio Test Hemoglobin Carboxyhemoglobin O2 Delivery Device Vent Setting Inspired O2 Critical Value Sodium Potassium Chloride Carbon Dioxide Anion Gap BUN Creatinine Estimated GFR POC Glucose 138 H 124 H 98 Random Glucose Calcium Total Bilirubin AST ALT Alkaline Phosphatase Total Protein Albumin Result Diagrams: 12/20/17 11:35 12/20/17 11:35 Microbiology: Microbiology 12/18/17 05:14 Aerobic Blood Culture - Preliminary Blood - Peripheral No growth in 1 day Anaerobic Blood Culture - Final QNS - See aerobic report. 12/18/17 05:05 Aerobic Blood Culture - Preliminary Blood - Peripheral No growth in 1 day Anaerobic Blood Culture - Preliminary No growth in 1 day Imaging: Chest X-Ray 12/11/17 22:21 CONCLUSION: 1. Underinflation with perihilar interstitial prominence which could be related to the underinflation or could represent pulmonary edema. No airspace consolidation is identified. 2. Endotracheal tube tip measures 2.7 cm from the rosette. Cervical Spine CT 12/12/17 00:00 CONCLUSION: No acute cervical spine abnormality is identified. Head CT 12/12/17 00:00 CONCLUSION: No acute intracranial abnormality is identified. . Head CTA 12/12/17 00:00 CONCLUSION: 1. Negative CTA Head. Neck CTA 12/12/17 00:00 CONCLUSION: 1. Atelectatic calcifications and areas of ulceration involving the origin of the right internal carotid artery with approximate 70-80% stenosis right at the takeoff of the right ICA prior to the start of the patient's internal coronary stent. Head CT 12/12/17 12:29 CONCLUSION: 1. Subtle areas of low attenuation are now seen in the right frontal and occipital regions of concern for areas of evolving infarction. There is no hemorrhage or mass effect. . Chest X-Ray 12/13/17 06:00 CONCLUSION: Mildly increased perihilar interstitial and airspace opacities. Although nonspecific the appearance could be related to pulmonary edema in the appropriate clinical setting. Chest X-Ray 12/17/17 11:50 CONCLUSION: Interval extubation with improved lung exam. Chest X-Ray 12/20/17 00:00 CONCLUSION: Continued prominence of the right bethel with continued infiltrate predominantly within the right lung. Changes are stable compared to previous. At some point, CT imaging would be of benefit to exclude right hilar mass if this has not already been performed. Procedures: 12/11/2017-Intubation- in the field Assessment and Plan - Disease Oriented Problem List (1) Acute respiratory failure (2) Hypertension (3) Depression (4) Coronary artery disease (5) History of head and neck cancer Pertinent Non-Medical Issues: Psychosocial: Patient was born in [place], [place]. He moved to [place] where he lived for approximately 20 years and then moved to [place] with for another approximate 20 years. Patient recently moved to [place] 5 years ago. Patient is been to his current for 48 years. They have 2 adult daughters, 8 grandchildren and great-grandchildren. 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 Spiritual: No mormon affiliation. Legal: Patient has completed healthcare surrogate and living will. (Spouse and daughter provided with copies from last hospital hospitalization) Ethical issues impacting care: None identified at this time. Important Contacts: Spouse- Evelyn Mendoza S- [phone] Daughter- Malissa Lockhart- [phone] Prognosis: Mr. 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 Patient was brought to the emergency room by EMS on was found unresponsive at home with copious oral secretions identified as tube feeding. When EMS arrived patient was found to have spontaneous respirations, palpable pulse and was hypotensive with SBP in the 90s, and decreased level of consciousness. Patient`s O2 saturation was 60% at scene, was intubated and suctioned. Clinical course complicated with acute respiratory failure. 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 . Code Status: Full Code Plan: PLAN: Legal decision maker: Patient is confused and lethargic. It is unknown at this time with the patient will be able to regain previous capacity. Patient's healthcare surrogate is his Evelyn Mendoza and his alternate healthcare surrogate is his daughter Malissa Lawrence. Goals: Aggressive. Family is hopeful at this time that patient will recover. Family at this point wants patient to be a full code though patient`s stated that if patient would require tracheostomy placement, she is unsure if she will proceed with that. CODE STATUS: Full Code SYMPTOMS: * Shortness of breath: Patient initially aspirated from tube feedings and required intubation. After extubation, he has required BiPAP intermittently to maintain saturations, although tolerates brief periods of nasal cannula oxygen before acute desaturations. Dyspnea worsens with activity. Remains on Zosyn for treatment of aspiration pneumonia. Recommend aggressive pulmonary toilet. Chest x-ray today shows continued prominence of the right bethel with continued infiltrate predominantly within the right lung, stable compared to previous, however CT chest recommended to rule out hilar mass by radiology. * Altered mental status: Patient was found sleeping on the couch at 4 PM by his and when he had not aroused by 8 PM, she tried to awaken him and found him unresponsive with O2 saturations in the 60s per EMS. Unknown how long he had severe hypoxia secondary to aspiration of large quantities of tube feeding. Repeat Head CT on 12/12 showed right hemispheric stroke in the frontal occipital area. Has been spontaneously moving right side and LLE, however LUE weak. Mentation confused today, agitated overnight. Transgressing back to earlier events as though they are current. Required Seroquel 100 mg and Klonopin 0.25 mg 2 doses overnight for agitation and confusion. Plan to readdress CODE STATUS and family meeting 12/21 at 1 PM. Palliative care will continue to follow the patient during hospital course as condition evolves, to assist patient/decision-maker with understanding of their medical conditions, weighing benefits/burdens of treatment options, for clarification of goals of treatment. Additionally will assist with any symptoms of palliative concern Attestation Attestation: To help prompt me to consider important information that might be impacting today's encounter and assessment, information from prior notes written by myself or my colleagues may have been "brought forward" into today's note. My signature on this note, however, is an attestation that I personally performed the exam, history, and/or decision-making noted today, and, unless otherwise indicated, the interactions with patient, family, and staff as well as the review of records all occurred today. I also attest that the listed assessment and stated plan reflect my best clinical judgment today based on the combination of historical information, prior notes, and today's exam/ interactions. When time spent is documented, it refers only to time spent today by the signer, or if indicated, combined time spent today by collaborating physician/nurse practitioner. .
[2017-12-20 12:28] LABS: Baso % (Auto) 0.2 % (0.0-2.0); Eos % (Auto) 0.1 % (0.0-4.0); Hematocrit 36.3 % (39.0-51.0); Hemoglobin 12.2 gm/dL (13.0-17.0); Lymph % (Auto) 5.9 % (9.0-44.0); Mean Corpuscular HGB Conc 33.6 % (32.0-36.0); Mean Corpuscular Hemoglobin 33.4 pg (27.0-34.0); Mean Corpuscular Volume 99.6 fL (80.0-100.0); Mean Platelet Volume 9.7 fL (7.0-11.0); Mono # (Auto) 0.5 th/mm3 (0.0-0.9); Mono % (Auto) 2.9 % (0.0-8.0); Neut # (Auto) 14.6 th/mm3 (1.8-7.7); Neut % (Auto) 90.9 % (16.0-70.0); Platelet Count 352 th/mm3 (150-450); Red Blood Count 3.64 mil/mm3 (4.50-5.90); Red Cell Distribution Width 13.8 % (11.6-17.2); White Blood Count 16.1 th/mm3 (4.0-11.0)
[2017-12-20 12:58] LABS: Albumin 2.5 g/dL (3.4-5.0); Anion Gap 10 meq/L (5-15); Calcium 8.8 mg/dL (8.5-10.1); Carbon Dioxide 24.5 meq/L (21.0-32.0); Chloride 111 meq/L (98-107); Glomerular Filtration Rate Greater Than 89 mL/min (>89); Glucose,Random 119 mg/dL (74-106); Magnesium 2.4 mg/dL (1.5-2.5); Potassium 3.4 meq/L (3.5-5.1); Sodium 145 meq/L (136-145)
[2017-12-20 13:19] LABS: Alanine Aminotransferase 367 U/L (12-78); Alkaline Phosphatase 165 U/L (45-117); Aspartate Aminotransferase 141 U/L (15-37); Blood Urea Nitrogen 29 mg/dL (7-18); Phosphorus 1.9 mg/dL (2.5-4.9); Total Protein 7.6 g/dL (6.4-8.2)
[2017-12-20] MEDS: Potassium Phosphate Inj 30 MMOL in Sodium Chlor 0.9% Inj 250 ML IV.SIG PRN (13:37)
--- NOTE | 2017-12-20 17:24 | P.PNCC ---
Subjective Subjective Remarks/Hospital Course: 67-year-old male with past medical history of head and neck cancer presents from home after being found unresponsive. Patient was found by EMS to have spontaneous respirations palpable pulse and blood pressure but markedly decreased level of consciousness, hypotensive with large amount of tube feeding contents in the oral cavity. Patient has history of head neck cancer and takes no oral medications takes all medications and feedings through PEG tube. Patient was last seen normal approximately at breakfast time on Tuesday and then family members found him unresponsive. Unknown downtime. Upon EMS arrival patient was assessed and suctioned and initial O2 saturations were 60% patient was placed on supplemental oxygen with improved ventilations and then subsequently intubated with a 7.5 endotracheal tube. Per EMS copious amounts of suctioning was performed and large amounts of tube feeding were suctioned. Patient presents now with endotracheal tube in place bilateral breath sounds to auscultation with bag valve ventilation and normotensive upon EMS presentation however initial blood pressure here mildly hypotensive with systolic pressure of 90 mmHg. Patient remains unresponsive. Family members not available. Patient with known allergies to narcotics. No other medical history is available. Subjective 12/12: Afebrile. Currently on propofol and fentanyl drips. Not really moving his left upper lower extremity. CT brain with CT angiogram brain ordered. Cannot do MRI due to retained metal metal in eye according to . 12/13: Sedated, arousable, orally intubated on mechanical ventilation 12/14: Sedated, arousable, orally intubated on mechanical ventilation. 12/15: Extubated yesterday, on nasal cannula tolerating well. Precedex to be titrated off this morning. Fentanyl patch resumed yesterday. Patient is awake and alert, knows he is in the hospital. He recognizes his family members. Minimal weakness on the left side. Moving right side well. Tolerating PEG feeds. ___ 12/17: Patient transferred to hospitalist service yesterday, but this morning was again found to be in respiratory distress. Concern for recurrent aspiration as he had high tube feed residuals via PEG. Transfer[place] [facility] 12/18: Patient tolerated bipap well yesterday, had some agitation overnight which improved with seroquel. 12/19: back on [place] o2. clinically improving. denies complaints. SOB improving. 12/20: Fluctuating mental status. Fentanyl patch discontinued today. Patient placed on BiPAP intermittently. Started Precedex for agitation. Objective Vital Signs / I&O: Vital Signs 12/19/17 18:00 12/19/17 19:36 12/19/17 20:00 Temperature 98.1 F Pulse Rate 104 H 104 H 109 H Respiratory Rate 16 20 Blood Pressure 164/76 H Pulse Oximetry 99 99 12/19/17 22:00 12/19/17 22:30 12/19/17 23:00 Temperature Pulse Rate 122 H 125 H 119 H Respiratory Rate 27 H 21 Blood Pressure 157/77 H 136/63 Pulse Oximetry 92 L 91 L 12/19/17 23:30 12/19/17 23:37 12/20/17 00:00 Temperature Pulse Rate 114 H 110 H 119 H Respiratory Rate 15 20 26 H Blood Pressure 147/84 H 139/75 Pulse Oximetry 96 92 L 12/20/17 00:30 12/20/17 01:00 12/20/17 01:30 Temperature Pulse Rate 119 H 116 H 115 H Respiratory Rate 35 H 26 H 30 H Blood Pressure 137/82 159/87 H 172/84 H Pulse Oximetry 91 L 94 L 95 12/20/17 02:00 12/20/17 02:30 12/20/17 02:33 Temperature Pulse Rate 114 H 117 H 115 H Respiratory Rate 29 H 26 H 32 H Blood Pressure 182/82 H 183/86 H 182/87 H Pulse Oximetry 96 95 95 12/20/17 02:48 12/20/17 03:00 12/20/17 03:12 Temperature Pulse Rate 125 H 111 H 113 H Respiratory Rate 29 H 17 26 H Blood Pressure 188/87 H 171/86 H 170/85 H Pulse Oximetry 96 94 L 96 12/20/17 03:30 12/20/17 03:35 12/20/17 03:57 Temperature Pulse Rate 114 H 110 H 120 H Respiratory Rate 23 20 28 H Blood Pressure 193/92 H 195/83 H Pulse Oximetry 91 L 95 12/20/17 04:00 12/20/17 04:30 12/20/17 05:00 Temperature Pulse Rate 119 H 87 96 H Respiratory Rate 29 H 25 H 35 H Blood Pressure 188/86 H 167/78 H 176/84 H Pulse Oximetry 93 L 91 L 93 L 12/20/17 05:30 12/20/17 06:00 12/20/17 06:30 Temperature Pulse Rate 88 93 H 98 H Respiratory Rate 25 H 26 H 26 H Blood Pressure 174/82 H 168/79 H 164/89 H Pulse Oximetry 94 L 92 L 92 L 12/20/17 07:00 12/20/17 07:30 12/20/17 08:00 Temperature 100.5 F H Pulse Rate 105 H 102 H 100 H Respiratory Rate 26 H 23 32 H Blood Pressure 163/90 H 161/75 H 166/88 H Pulse Oximetry 92 L 93 L 92 L 12/20/17 08:07 12/20/17 08:30 12/20/17 09:00 Temperature Pulse Rate 96 H 101 H 100 H Respiratory Rate 20 29 H 39 H Blood Pressure 178/81 H 157/86 H Pulse Oximetry 93 L 96 95 12/20/17 09:30 12/20/17 10:00 12/20/17 10:30 Temperature Pulse Rate 88 92 H 94 H Respiratory Rate 24 25 H 23 Blood Pressure 150/72 H 160/79 H 168/80 H Pulse Oximetry 90 L 90 L 90 L 12/20/17 11:00 12/20/17 11:30 12/20/17 12:00 Temperature 98.2 F Pulse Rate 92 H 100 H 91 H Respiratory Rate 23 24 24 Blood Pressure 155/75 H 154/74 H 132/70 Pulse Oximetry 90 L 92 L 92 L 12/20/17 12:30 12/20/17 12:52 12/20/17 13:00 Temperature Pulse Rate 96 H 81 102 H Respiratory Rate 24 18 25 H Blood Pressure 136/65 132/64 Pulse Oximetry 91 L 97 12/20/17 13:30 12/20/17 14:00 12/20/17 14:30 Temperature Pulse Rate 97 H 95 H 91 H Respiratory Rate 28 H 23 19 Blood Pressure 119/70 124/69 126/74 Pulse Oximetry 95 95 97 12/20/17 15:00 12/20/17 15:30 12/20/17 16:00 Temperature 98.7 F Pulse Rate 91 H 89 87 Respiratory Rate 16 19 18 Blood Pressure 132/74 136/74 145/72 H Pulse Oximetry 98 98 96 12/20/17 16:06 Temperature Pulse Rate 86 Respiratory Rate 20 Blood Pressure Pulse Oximetry 96 Intake & Output 12/19/17 12/20/17 12/20/17 18:59 06:59 18:59 Intake Total 1052 / 1052 825 / 825 100 / 100 Output Total 1000 / 1000 700 / 700 Balance 52 / 52 125 / 125 100 / 100 Weight 74 kg Intake: IV 550 / 550 200 / 200 100 / 100 NS + KCl 20 mEq Inj 1,000 ML @ 250 / 250 80 mls/hr IV.CONT .[id number] HEATHER Rx#:[id number] Zosyn 4.5 GM Premix 4.5 gm In 300 / 300 200 / 200 100 / 100 100 ml @ 200 mls/hr IV.SIG Q6H HEATHER Rx#:[id number] Tube Feeding 202 / 202 325 / 325 Water Bolus Amount 300 / 300 300 / 300 Output: Urine 700 / 700 Urine Amount (Catheter) 1000 / 1000 Indwelling Urethral Catheter 1000 / 1000 Other: # Voids 1 Date of Last Bowel Movement 12/19/17 # Incontinent Bowel Movements 1 Result Diagrams: 12/20/17 11:35 12/20/17 11:35 Objective Remarks: GENERAL: Elderly male lying in bed, on BiPAP with full facemask SKIN: Warm and dry HEENT: NCAT, PERRL NECK: Trachea midline. Scarring from prior neck dissection CARDIOVASCULAR: Regular rate and rhythm RESPIRATORY: On BiPAP with full facemask, good air entry bilaterally, scattered rhonchi more on the right, no wheezing. GASTROINTESTINAL: Soft, non-tender, non-distended. PEG tube present. MUSCULOSKELETAL: No peripheral edema NEUROLOGICAL: Drowsy, arousable, disoriented, on BiPAP with full facemask. moving all extremities Assessment and Plan - Assessment and Plan Plan: Neuro/Psych: Acute encephalopathy- resolved Cerebrovascular accident Chronic benzodiazepine use with clonazepam 1 mg 3 times daily Chronic opioid use with fentanyl patches 25 mcg every 72 hours/found with 3 fentanyl patches on him Depression disorder NOS Fentanyl patch 25 mcg/h home dose. Seroquel 50 mg every 12 hourly as needed for agitation. s/p right frontal and occipital CVA, unable to do MRI brain secondary to retained metal in eye according to . * Has bilateral internal carotid artery stents, right carotid stent has ulcerated plaque with 80% stenosis. Per vascular consult, may need additional stent inside of original one in order to cover the ulceration and relieve the stenosis. Will need a carotid angio first for pre-op planning. * ASA, plavix CV: Elevated troponin-- resolved Essential hypertension- chronic Coronary artery disease- chronic Bilateral carotid artery stents- chronic Troponin peaked at 0.39, no longer trending Continue daily full-dose aspirin, plavix Continue amlodipine 10 mg daily/home medication for hypertension 2D echo showed EF 60-65%, moderate pulmonary HTN (PA pressure 32 mmHg), moderate AR, trace TR Resp: Acute respiratory failure-- recurrent- resolving. Acute COPD exacerbation Healthcare associated Aspiration pneumonia Extubated on 12/14, transferred back [place] [facility] [place]17 for bipap now back to BiPAP on 12/20 continue 5 day course of steroids for presumed COPD exacerbation continue full 10 day course of zosyn for HCAP aspiration pneumonia. continue serial nebs PT consult OOB aggressive pulmonary toilet. GI: Chronic dysphagia requring PEG tube nutrition increase tube feeds back to goal. hold for residual >300 cc Famotidine for GI prophylaxis, change to PO Docusate sodium/senna 1 tablet twice daily for bowel regimen : d/c mccray catheter. Endo: SSI with Accu-Cheks every 6 hours to maintain euglycemia Renal: Monitor urine output ID: Day 9 of zosyn for pseudomonal/ E coli pneumonia, will continue for now as patient's respiratory status acutely worsened yesterday. Consult ID for worsening pneumonia. MSK: PT evaluate and treat FEN: Hypokalemia Replace electrolytes as clinically indicated per ICU electrolyte protocol Access -Peripheral IV Prophylaxis -GI -famotidine -DVT -SCD/enoxaparin
--- NOTE | 2017-12-20 20:25 | MB ---
cc: Chintan Wei MD DATE: 12/20/2017 REQUESTING PHYSICIAN: Dewey Ridley MD REASON FOR CONSULTATION: Respiratory failure and possible hilar mass. HISTORY OF PRESENT ILLNESS: Simeon Mendoza is a 67-year-old white male with a history of head and neck cancer, which was treated with surgery, radiation treatment and chemo treatment. The patient has PEG tube and he feeds himself. The patient was brought to the hospital with decrease in his mentation, he was on ventilator, extubated and sent to the floor. His shortness of breath became worse and he was transferred to the intensive care unit. Currently, he is on BiPAP. He is lethargic, opens his eyes, barely nods yes and no. Current chest x-ray showed possible hilar mass. His CBC shows WBC count 16.1, hemoglobin 12.2, hematocrit 36.3, MCV 99, platelet count 352. His blood gas pH 7.49, pCO2 of 31, pO2 of 84, bicarbonate 24, saturation 95%. His sodium 145, potassium 3.4, chloride 101, CO2 24, BUN 29, creatinine 0.65. PAST MEDICAL HISTORY: Significant for history of head and neck cancer, dysphagia, PEG tube placement. MEDICATIONS: 1. Hydrocodone. 2. Milk of magnesia. 3. Nebulizer treatment. 4. Aspirin 325 mg a day. 5. Klonopin 0.25 mg 3 times a day. 6. Plavix 75 mg a day. 7. Lovenox 40 mg a day. 8. Fentanyl patch. 9. Famotidine 20 mg a day. 10. Insulin coverage. 11. Melatonin 5 mg at nighttime. 12. Zosyn. ALLERGIES: MORPHINE, HYDROMORPHONE SOCIAL HISTORY: History of smoking, alcohol use in the past. FAMILY HISTORY: He is . REVIEW OF SYSTEMS: Cannot assess. PHYSICAL EXAMINATION: GENERAL: Elderly female, lethargic on BiPAP. VITAL SIGNS: Blood pressure is 145/72, heart rate 87, respirations 18, temperature 98. HEENT: Pupils reactive to light. NECK: Supple. JVD not raised. CHEST: He has decreased breath sounds at bases. CHEST: Has some rhonchi. HEART: S1, S2 normal. ABDOMEN: He has PEG tube in place. EXTREMITIES: No edema. CENTRAL NERVOUS SYSTEM: Lethargic. IMPRESSION: 1. Respiratory failure. He is on BiPAP. 2. Possible hilar mass. 3. History of head and neck cancer. 4. Possible aspiration. PLAN: We will continue his antibiotics. Continue his BiPAP. Titrate his oxygen. Continue his subcutaneous Lovenox. Palliative care is consulted. We will establish the goal. If family wants everything to be done, then would consider getting a CAT scan with contrast to assess the hilar mass. We will follow his course in the hospital. Thank you, Dr. Dewey Ridley, for this consult. MD LENA Bronson/mary , 07:23 PM , 07:32 PM
[2017-12-20] MEDS: Dexmedetomidine Inj 200 MCG in Sodium Chlor 0.9% Inj 48 ML IV.CONT PRN (22:59)
[2017-12-21] MEDS: Insulin NovoLOG Aspart Correctional Sugar Inj SQ SCH ×4 (00:05→17:23)
[2017-12-21] MEDS: Enoxaparin Inj 40 MG/0.4 ML Syringe SQ SCH ×2 (00:05→23:58)
[2017-12-21] MEDS: Piperacil/Tazo 4.5 GM Premix 4.5 GM/100 ML BAG IV.SIG SCH ×5 (00:06→23:58)
[2017-12-21] MEDS: Oral Hygiene Kit OROPHARYNG SCH ×5 (00:06→23:57)
[2017-12-21] MEDS: Dexmedetomidine Inj 200 MCG in Sodium Chlor 0.9% Inj 48 ML IV.CONT PRN (01:01)
[2017-12-21] MEDS ORDERED: Dexmedetomidine Inj 1,000 MCG in Sodium Chlor 0.9% Inj 240 ML IV.CONT PRN (01:15)
[2017-12-21 03:28] LABS: Baso # (Auto) 0.1 th/mm3 (0.0-0.2); Baso % (Auto) 0.7 % (0.0-2.0); Hemoglobin 10.8 gm/dL (13.0-17.0); Lymph # (Auto) 2.3 th/mm3 (1.0-4.8); Lymph % (Auto) 19.7 % (9.0-44.0); Mean Corpuscular HGB Conc 33.7 % (32.0-36.0); Mean Corpuscular Hemoglobin 33.1 pg (27.0-34.0); Mean Corpuscular Volume 98.5 fL (80.0-100.0); Mean Platelet Volume 9.6 fL (7.0-11.0); Mono % (Auto) 8.8 % (0.0-8.0); Neut # (Auto) 8.3 th/mm3 (1.8-7.7); Neut % (Auto) 70.8 % (16.0-70.0); Platelet Count 366 th/mm3 (150-450); Red Blood Count 3.25 mil/mm3 (4.50-5.90); Red Cell Distribution Width 14.1 % (11.6-17.2); White Blood Count 11.7 th/mm3 (4.0-11.0)
[2017-12-21 03:56] LABS: Alanine Aminotransferase 335 U/L (12-78); Alkaline Phosphatase 143 U/L (45-117); Total Protein 7.3 g/dL (6.4-8.2)
[2017-12-21 04:00] LABS: Albumin 2.3 g/dL (3.4-5.0); Anion Gap 7 meq/L (5-15); Aspartate Aminotransferase 142 U/L (15-37); Blood Urea Nitrogen 30 mg/dL (7-18); Calcium 8.6 mg/dL (8.5-10.1); Carbon Dioxide 27.5 meq/L (21.0-32.0); Chloride 111 meq/L (98-107); Glomerular Filtration Rate Greater Than 89 mL/min (>89); Glucose,Random 105 mg/dL (74-106); Potassium 4.1 meq/L (3.5-5.1); Sodium 145 meq/L (136-145)
--- NOTE | 2017-12-21 10:25 | P.CONID ---
History of Present Illness Service: Infectious Disease Consult date: 12/21/17 Requesting Physician: Erika Ridley Reason for Consult: Evaluation and Mment of Pneumonia in an IC patient Primary Care Provider: Ondina Boyer MD Family Provider: Ondina Boyer MD History of Present Illness: Mr. 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 Patient was brought to the emergency room by EMS on 12/11/17 after he was found unresponsive at home with copious oral secretions identified as tube feeding. When EMS arrived patient had spontaneous respirations, palpable pulse and was hypotensive with SBP in the 90s , and decreased level of consciousness. O2 saturation was 60% at scene, and he was intubated and copius secretions were suctioned. Patient is dysphagic, he only takes his medications and feedings through a PEG tube. Per ER report patient was last seen normal in the morning on 12/11 and it is not known how long he had been unresponsive. Patient was found with x3 patches of 25mcg Fentanyl patches on him. According to his he is supposed to be on Fentanyl 25mcg for 72 hrs. 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 He does not follow with an oncologist but he follows with ENT Dr. Gonzalez. ER Course: * Vital signs: Temperature 97.8F, pulse 78, respirations 20, BP 92/51, O2 saturation 100% * Chest x-ray revealed underinflation with perihilar interstitial prominence which could be related to the underinflation could represent pulmonary edema. No airspace consolidation is identified. * ABG results pH 7.25, PCO2 45, PO2 100, bicarb 19, base excess -7, O2 sats 95% on vent settings PRVC/AC14/550/IT 1.0/8/100% * Laboratory workup revealed WBC 9.8, hemoglobin 13.4, hematocrit 38.7, platelet count 194, sodium 141, potassium 3.2, BUN/creatinine 23/1.37, lactic acid 12.4, calcium 7.4, AST 152, ALT 136, alkaline phosphatase 85, total protein 6.8, albumin 3.2, troponin 0 0.04, T10 0.7, INR 1.1, APTT 26.8. CT cervical spine on 12/12/17 revealed no acute cervical spine abnormality. Head CT on 12/12/17 revealed no acute intracranial abnormality. Laboratory workup today revealing WBC 10.5, hemoglobin 12.8, hematocrit 37.0, platelet count 208, Cr 0.83. Infectious disease is consulted for evaluation and Mment of recurrent aspiration or HCAP in an Immune compromised patient. [facility] - History History Provided By: Medical Record - Medical History Medical History: Medical History (Last Reviewed 12/19/17 @ 14:42 by Olga Zhu) CAD (coronary artery disease) Depression History of common carotid artery stent placement History of gastrostomy tube placement Hypertension Throat cancer Tongue cancer - Surgical History Surgical History: Surgical History (Last Reviewed 12/19/17 @ 14:42 by Olga Zhu) History of appendectomy History of radical neck dissection Hx of tonsillectomy S/P partial glossectomy Status post dissection of neck - Family History Family History: Family History (Last Updated 12/12/17 @ 10:01 by Virgil Moreno) Father Diabetes Stroke Mother Thyroid cancer Leukemia - Tobacco History Second Hand Smoke Exposure: Yes Tobacco Use In Past 30 Days: Yes Smoking Status: Current every day smoker Tobacco Type: Cigarettes - Alcohol History How Often Do You Have a Drink Containing Alcohol: Monthly or less - Substance Use History Substance History: No History of Abuse - Travel History Recent Travel in the [place] Within the Last 8 Weeks: No Recent Travel Out of the Country Within the Last 8 Weeks: No - Immunization History Tetanus Immunization: >5 Years Hx Influenza Vaccine This Season: Yes Medications and Allergies Active Medications: Active Medications Acetaminophen (Tylenol) 650 mg PO Q6H PRN PRN Reason: FEVER >101F Last Admin: 12/18/17 04:15 Dose: 650 mg Hydrocodone Bitart/Acetaminophen (Dawson 5/325) 1 tab G-TUBE Q4H PRN PRN Reason: pain 3-10 Last Admin: 12/17/17 18:22 Dose: 1 tab Acetylcysteine (Mucomyst 20% Neb) 2 ml NEB Q4HR NEB HEATHER Last Admin: 12/21/17 07:59 Dose: 2 ml Al Hydroxide/Mg Hydroxide (Milk Of Magnesia Liq) 30 ml PO Q12H PRN PRN Reason: Mild Constipation Last Admin: 12/15/17 15:35 Dose: 30 ml Albuterol (Albuterol Neb (Prn)) 2.5 mg NEB Q2HR NEB PRN PRN Reason: DYSPNEA Last Admin: 12/17/17 03:04 Dose: 2.5 mg Albuterol (Duoneb Neb ([facility])) 1 ampul NEB Q4HR NEB [facility] Last Admin: 12/21/17 07:59 Dose: 1 ampul Amlodipine Besylate (Norvasc) 10 mg PO DAILY [facility] Last Admin: 12/20/17 08:29 Dose: 10 mg Aspirin (Aspirin) 325 mg PO DAILY [facility] Last Admin: 12/20/17 08:28 Dose: 325 mg Bisacodyl (Dulcolax Supp) 10 mg RECTAL DAILY PRN PRN Reason: SEVERE CONSITIPATION Chlorhexidine Gluconate (Peridex 0.12% Oral Kit) 15 ml OROPHARYNG BID@0800, 2000 [facility] Last Admin: 12/20/17 20:05 Dose: Not Given Clonazepam (Klonopin) 0.25 mg PO TID [facility] Last Admin: 12/20/17 17:34 Dose: Not Given Clonidine HCl (Catapres) 0.1 mg PO Q6H PRN PRN Reason: Sbp>165, Dbp>90, Hr>65 Last Admin: 12/20/17 22:28 Dose: 0.1 mg Clopidogrel Bisulfate (Plavix) 75 mg PO DAILY [facility] Last Admin: 12/20/17 08:30 Dose: 75 mg Dextrose (D50w Vial) 50 ml IV.PUSH UNSCH PRN PRN Reason: PER HYPOGLYCEMIA PROTOCOL Enoxaparin Sodium (Lovenox Inj) 40 mg SQ Q24H [facility] Last Admin: 12/21/17 00:05 Dose: 40 mg Famotidine (Pepcid) 20 mg PO BID [facility] Last Admin: 12/20/17 20:04 Dose: 20 mg Fentanyl (Duragesic 25 Mcg Patch.72hr) 1 patch T-DERMAL Q3D [facility] Last Admin: 12/20/17 13:02 Dose: Not Given Glucagon (Glucagon Inj) 1 mg OTHER PRN PRN PRN Reason: for Hypoglycemia Protocol Piperacillin/Tazobactam/Dextrose (Zosyn 4.5 Gm Premix) 4.5 gm in 100 mls @ 200 mls/hr IV.SIG Q6H HEATHER Last Infusion: 12/21/17 06:23 Dose: Infused Magnesium Sulfate Inj 4 gm/ (Sodium Chloride) 100 mls @ 50 mls/hr IV.SIG UNSCH PRN PRN Reason: For Magnesium 0.9 - 1.1 mg/dL Magnesium Sulfate Inj 2 gm/ (Sodium Chloride) 100 mls @ 50 mls/hr IV.SIG UNSCH PRN PRN Reason: For Magnesium 1.2 - 1.6 mg/dL Potassium Chloride (Kcl 40 Meq Premix Inj) 40 meq in 100 mls @ 25 mls/hr IV.SIG Q2H PRN PRN Reason: For Potassium 2.8 - 3.2 mEq/L Potassium Chloride (Kcl 20 Meq Premix Inj) 20 meq in 100 mls @ 50 mls/hr IV.SIG Q2H PRN PRN Reason: For Potassium 3.3 - 3.5 mEq/L Potassium Chloride (Kcl 40 Meq Premix Inj) 40 meq in 100 mls @ 25 mls/hr IV.SIG UNSCH PRN PRN Reason: For Potassium 3.3 - 3.5 mEq/L Potassium Chloride (Kcl 20 Meq Premix Inj) 20 meq in 100 mls @ 50 mls/hr IV.SIG Q2H PRN PRN Reason: For Potassium 2.8 - 3.2 mEq/L Potassium Phosphate 30 mmol/ (Sodium Chloride) 260 mls @ 42 mls/hr IV.SIG UNSCH PRN PRN Reason: SEE LABEL COMMENTS Last Infusion: 12/20/17 19:10 Dose: Infused Sodium Phosphate 30 mmol/ (Sodium Chloride) 260 mls @ 42 mls/hr IV.SIG UNSCH PRN PRN Reason: For Phosphorus < 2.5 mg/dL Dexmedetomidine HCl 1,000 mcg/ (Sodium Chloride) 250 mls @ 3.7 mls/hr IV.CONT TITRATE PRN; Protocol PRN Reason: Per Protocol Last Titration: 12/21/17 06:00 Dose: 0 mcg/kg/hr, 0 mls/hr Insulin Aspart (Novolog Insulin Correctional Sugar Inj) 0 unit SQ Q6HR HEATHER; Protocol Last Admin: 12/21/17 06:05 Dose: Not Given Labetalol HCl (Trandate Inj) 10 mg IV.PUSH Q1H PRN PRN Reason: Sbp>165, Dbp>90, Hr>65 Last Admin: 12/20/17 04:26 Dose: 10 mg Lactulose (Lactulose Liq) 30 ml PO DAILY PRN PRN Reason: SEVERE CONSITIPATION Magnesium Oxide (Mag-Ox) 800 mg PO UNSCH PRN PRN Reason: For Magnesium 1.2 - 1.6 mg/dL Melatonin (Melatonin) 5 mg PO HS PRN PRN Reason: INSOMNIA Methylprednisolone Sodium Succinate (Solumedrol Inj) 125 mg IV.PUSH DAILY [facility] Stop: 12/22/17 09:01 Last Admin: 12/20/17 08:30 Dose: 125 mg Metoclopramide HCl (Reglan Inj) 5 mg IV.PUSH Q6HR [facility]; Protocol Last Admin: 12/21/17 05:13 Dose: 5 mg Mirtazapine (Remeron) 30 mg PO DAILY [facility] Last Admin: 12/20/17 08:30 Dose: 30 mg Ondansetron HCl (Zofran Inj) 4 mg IV.PUSH Q6H PRN PRN Reason: NAUSEA OR VOMITING Patch Removal (Remove Old Patch) 1 each T-DERMAL Q3D [facility] Last Admin: 12/20/17 13:03 Dose: 1 each Potassium Bicarb/Potassium Chloride (K-Lyte Cl Eff) 50 meq PO UNSCH PRN PRN Reason: For Potassium 3.3 - 3.5 mEq/L Last Admin: 12/19/17 12:00 Dose: 50 meq Potassium Phosphate (K-Phos Original) 2,000 mg PO Q4H PRN PRN Reason: Phosphorus Less Than 2.5 mg/dL Potassium Phosphate (K-Phos Original) 2,000 mg PO UNSCH PRN PRN Reason: SEE LABEL COMMENTS Quetiapine Fumarate (Seroquel) 100 mg PO BID PRN PRN Reason: AGITATION Last Admin: 12/19/17 18:49 Dose: 100 mg Senna/Docusate Sodium (Ami-Colace) 1 tab PO BID [facility] Last Admin: 12/20/17 20:04 Dose: 1 tab Sennosides (Senokot) 17.2 mg PO Q12H PRN PRN Reason: Moderate Constipation Sodium Chloride (Ns Flush) 2 ml IV.FLUSH BID [facility] Last Admin: 12/20/17 20:04 Dose: 2 ml Sodium Chloride (Ns Flush) 2 ml IV.FLUSH PRN PRN PRN Reason: FLUSH AFTER USING IV ACCESS Last Admin: 12/20/17 08:29 Dose: 2 ml Allergies Allergy/AdvReac Type Severity Reaction Status Date / Time morphine Allergy Intermediate Confusion Verified 03/04/17 21:32 HALLICINATES hydromorphone AdvReac Intermediate Confusion Verified 12/11/17 22:23 Home Medications Medication Instructions Recorded Confirmed Type amlodipine 10 mg PO DAILY 12/11/17 12/11/17 History clonazepam 1 mg PO TID 12/11/17 12/11/17 History fentanyl 50 mcg INTRADERMAL 2XWEEK 12/11/17 12/11/17 History mirtazapine 30 mg PO DAILY 12/11/17 12/11/17 History Exam Vital signs: Vital Signs 12/20/17 10:30 12/20/17 11:00 12/20/17 11:30 Temperature Pulse Rate 94 H 92 H 100 H Respiratory Rate 23 23 24 Blood Pressure 168/80 H 155/75 H 154/74 H Pulse Oximetry 90 L 90 L 92 L 12/20/17 12:00 12/20/17 12:30 12/20/17 12:52 Temperature 98.2 F Pulse Rate 91 H 96 H 81 Respiratory Rate 24 24 18 Blood Pressure 132/70 136/65 Pulse Oximetry 92 L 91 L 12/20/17 13:00 12/20/17 13:30 12/20/17 14:00 Temperature Pulse Rate 102 H 97 H 95 H Respiratory Rate 25 H 28 H 23 Blood Pressure 132/64 119/70 124/69 Pulse Oximetry 97 95 95 12/20/17 14:30 12/20/17 15:00 12/20/17 15:30 Temperature Pulse Rate 91 H 91 H 89 Respiratory Rate 19 16 19 Blood Pressure 126/74 132/74 136/74 Pulse Oximetry 97 98 98 12/20/17 16:00 12/20/17 16:06 12/20/17 18:00 Temperature 98.7 F Pulse Rate 87 86 97 H Respiratory Rate 18 20 Blood Pressure 145/72 H Pulse Oximetry 96 96 12/20/17 19:49 12/20/17 19:51 12/20/17 20:00 Temperature 99.5 F Pulse Rate 92 H 93 H Respiratory Rate 17 18 Blood Pressure 129/73 Pulse Oximetry 100 96 12/20/17 22:00 12/20/17 23:35 12/20/17 23:36 Temperature Pulse Rate 103 H 92 H Respiratory Rate 13 Blood Pressure Pulse Oximetry 97 12/21/17 00:00 12/21/17 02:00 12/21/17 03:23 Temperature Pulse Rate 90 81 Respiratory Rate 21 Blood Pressure 180/79 H Pulse Oximetry 99 96 12/21/17 03:25 12/21/17 04:00 12/21/17 06:00 Temperature 99.1 F Pulse Rate 63 59 L 54 L Respiratory Rate 12 15 Blood Pressure 133/71 Pulse Oximetry 96 12/21/17 07:59 Temperature Pulse Rate 64 Respiratory Rate 18 Blood Pressure Pulse Oximetry 95 Intake & Output 12/20/17 12/21/17 12/21/17 18:59 06:59 18:59 Intake Total 392 / 392 1053 / 1053 Output Total 650 / 650 400 / 400 Balance -258 / -258 653 / 653 Weight 73.5 kg Intake: IV 100 / 100 660 / 660 Precedex Inj 200 MCG In NS Inj 100 / 100 48 ML @ 0.2 MCG/KG/HR 3.7 mls/ hr IV.CONT TITRATE PRN Rx#: [id number] Zosyn 4.5 GM Premix 4.5 gm In 100 / 100 300 / 300 100 ml @ 200 mls/hr IV.SIG Q6H HEATHER Rx#:[id number] Potassium Phosphate Inj 30 MMOL 260 / 260 In NS Inj 250 ML @ 42 mls/hr IV.SIG UNSCH PRN Rx#:[id number] Tube Feeding 232 / 232 273 / 273 Water Bolus Amount 60 / 60 120 / 120 Output: Urine Amount (Catheter) 650 / 650 400 / 400 Indwelling Urethral Catheter 650 / 650 400 / 400 Other: Date of Last Bowel Movement 12/20/17 12/20/17 # Bowel Movements 1 Narrative: GENERAL: Well-nourished well-developed, not in acute distress SKIN: Cool and dry, no generalized rash HEAD: Atraumatic. Normocephalic. No temporal or scalp tenderness. EYES: Pupils equal round and reactive. Scleral icterus. No injection or drainage. No petechia ENT: Right side hemiglossectomy, voice garbled and not clear. NECK: Surgical scar intact with no e.o infection CARDIOVASCULAR: HS audible. RESPIRATORY: Clear to auscultation bilaterally. GASTROINTESTINAL: Abdomen soft nontender. MUSCULOSKELETAL: Extremities without clubbing, cyanosis. NEUROLOGICAL: Alert oriented 3. Nonfocal. Psych cooperative PEG tube site ok. IV line sites ok. Results - Labs CBC & Chem 7: 12/21/17 02:47 12/21/17 02:47 Labs: Laboratory Results - last 24 hr 12/20/17 12/20/17 12/20/17 11:21 11:35 11:35 WBC 16.1 H RBC 3.64 L Hgb 12.2 L Hct 36.3 L MCV 99.6 MCH 33.4 MCHC 33.6 RDW 13.8 Plt Count 352 MPV 9.7 Neut % (Auto) 90.9 H Lymph % (Auto) 5.9 L Osborne % (Auto) 2.9 Eos % (Auto) 0.1 Baso % (Auto) 0.2 Neut # (Auto) 14.6 H Lymph # (Auto) 1.0 Osborne # (Auto) 0.5 Eos # (Auto) 0.0 Baso # (Auto) 0.0 WBC Differential . Differential Comment Auto diff final Sodium 145 Potassium 3.4 L Chloride 111 H Carbon Dioxide 24.5 Anion Gap 10 BUN 29 H Creatinine 0.65 Estimated GFR Greater than 89 POC Glucose 207 H Random Glucose 119 H Calcium 8.8 Phosphorus 1.9 L Magnesium 2.4 Total Bilirubin 0.8 AST 141 H ALT 367 H Alkaline Phosphatase 165 H Total Protein 7.6 Albumin 2.5 L 12/20/17 12/20/17 12/21/17 17:18 23:52 02:47 WBC 11.7 H RBC 3.25 L Hgb 10.8 L Hct 32.0 L MCV 98.5 MCH 33.1 MCHC 33.7 RDW 14.1 Plt Count 366 MPV 9.6 Neut % (Auto) 70.8 H Lymph % (Auto) 19.7 Osborne % (Auto) 8.8 H Eos % (Auto) 0.0 Baso % (Auto) 0.7 Neut # (Auto) 8.3 H Lymph # (Auto) 2.3 Osborne # (Auto) 1.0 H Eos # (Auto) 0.0 Baso # (Auto) 0.1 WBC Differential . Differential Comment Auto diff final Sodium Potassium Chloride Carbon Dioxide Anion Gap BUN Creatinine Estimated GFR POC Glucose 131 H 109 Random Glucose Calcium Phosphorus Magnesium Total Bilirubin AST ALT Alkaline Phosphatase Total Protein Albumin 12/21/17 02:47 WBC RBC Hgb Hct MCV MCH MCHC RDW Plt Count MPV Neut % (Auto) Lymph % (Auto) Osborne % (Auto) Eos % (Auto) Baso % (Auto) Neut # (Auto) Lymph # (Auto) Osborne # (Auto) Eos # (Auto) Baso # (Auto) WBC Differential Differential Comment Sodium 145 Potassium 4.1 Chloride 111 H Carbon Dioxide 27.5 Anion Gap 7 BUN 30 H Creatinine 0.61 Estimated GFR Greater than 89 POC Glucose Random Glucose 105 Calcium 8.6 Phosphorus Magnesium Total Bilirubin 0.6 AST 142 H ALT 335 H Alkaline Phosphatase 143 H Total Protein 7.3 Albumin 2.3 L - Imaging Chest X-Ray 12/11/17 22:21 CONCLUSION: 1. Underinflation with perihilar interstitial prominence which could be related to the underinflation or could represent pulmonary edema. No airspace consolidation is identified. 2. Endotracheal tube tip measures 2.7 cm from the rosette. Cervical Spine CT 12/12/17 00:00 CONCLUSION: No acute cervical spine abnormality is identified. Head CT 12/12/17 00:00 CONCLUSION: No acute intracranial abnormality is identified. . Head CTA 12/12/17 00:00 CONCLUSION: 1. Negative CTA Head. Neck CTA 12/12/17 00:00 CONCLUSION: 1. Atelectatic calcifications and areas of ulceration involving the origin of the right internal carotid artery with approximate 70-80% stenosis right at the takeoff of the right ICA prior to the start of the patient's internal coronary stent. Head CT 12/12/17 12:29 CONCLUSION: 1. Subtle areas of low attenuation are now seen in the right frontal and occipital regions of concern for areas of evolving infarction. There is no hemorrhage or mass effect. . Chest X-Ray 12/13/17 06:00 CONCLUSION: Mildly increased perihilar interstitial and airspace opacities. Although nonspecific the appearance could be related to pulmonary edema in the appropriate clinical setting. Chest X-Ray 12/17/17 11:50 CONCLUSION: Interval extubation with improved lung exam. Chest X-Ray 12/20/17 00:00 CONCLUSION: Continued prominence of the right [place] with continued infiltrate predominantly within the right lung. Changes are stable compared to previous. At some point, CT imaging would be of benefit to exclude right hilar mass if this has not already been performed. Chest CTA 12/21/17 00:00 CONCLUSION: 1. Apparent right subclavian artery. 2. Mildly enlarged subcarinal and right hilar lymph nodes. adenopathy. 3. Scattered pulmonary infiltrates including right lower lobe consolidation with air bronchogram formation. 4. Atherosclerosis. 5. No evidence for pulmonary embolism. Assessment and Plan - Plan Aspiration Pneumonia on admission HCAP E.coli, PSAE and Strep lung infection Acute resp failure on admission ? due to excessive fentanyl patch dose. Head neck cancer ? in remission Recs Continue Zosyn IV Follow cultures Follow clinical course. dw CCM
[2017-12-21] MEDS: clonazePAM 0.5 MG Tablet PO SCH ×3 (10:28→17:00)
[2017-12-21] MEDS: Senna/Docusate Sodium 8.6/50 MG Tablet PO SCH ×2 (10:28→20:00)
[2017-12-21] MEDS: amLODIPine 10 MG Tablet PO SCH (10:29)
[2017-12-21] MEDS: Famotidine 20 MG Tablet PO SCH ×2 (10:30→20:00)
[2017-12-21] MEDS: Mirtazapine 15 MG Tablet PO SCH (10:30)
[2017-12-21] MEDS: Aspirin 325 MG Tablet PO SCH (10:31)
[2017-12-21] MEDS: Chlorhexidine 0.12% Oral Kit 15 ML UDC OROPHARYNG SCH ×2 (10:31→20:10)
[2017-12-21] MEDS: MethylPREDNISolone Sod Succinate Inj 125 MG/2 ML Vial IV.PUSH SCH (10:31)
--- NOTE | 2017-12-21 14:03 | P.PNCC ---
Subjective Subjective Remarks/Hospital Course: 67-year-old male with past medical history of head and neck cancer presents from home after being found unresponsive. Patient was found by EMS to have spontaneous respirations palpable pulse and blood pressure but markedly decreased level of consciousness, hypotensive with large amount of tube feeding contents in the oral cavity. Patient has history of head neck cancer and takes no oral medications takes all medications and feedings through PEG tube. Patient was last seen normal approximately at breakfast time on Tuesday and then family members found him unresponsive. Unknown downtime. Upon EMS arrival patient was assessed and suctioned and initial O2 saturations were 60% patient was placed on supplemental oxygen with improved ventilations and then subsequently intubated with a 7.5 endotracheal tube. Per EMS copious amounts of suctioning was performed and large amounts of tube feeding were suctioned. Patient presents now with endotracheal tube in place bilateral breath sounds to auscultation with bag valve ventilation and normotensive upon EMS presentation however initial blood pressure here mildly hypotensive with systolic pressure of 90 mmHg. Patient remains unresponsive. Family members not available. Patient with known allergies to narcotics. No other medical history is available. Subjective 12/12: Afebrile. Currently on propofol and fentanyl drips. Not really moving his left upper lower extremity. CT brain with CT angiogram brain ordered. Cannot do MRI due to retained metal metal in eye according to . 12/13: Sedated, arousable, orally intubated on mechanical ventilation 12/14: Sedated, arousable, orally intubated on mechanical ventilation. 12/15: Extubated yesterday, on nasal cannula tolerating well. Precedex to be titrated off this morning. Fentanyl patch resumed yesterday. Patient is awake and alert, knows he is in the hospital. He recognizes his family members. Minimal weakness on the left side. Moving right side well. Tolerating PEG feeds. ___ 12/17: Patient transferred to hospitalist service yesterday, but this morning was again found to be in respiratory distress. Concern for recurrent aspiration as he had high tube feed residuals via PEG. Transferred to [facility]. 12/18: Patient tolerated bipap well yesterday, had some agitation overnight which improved with seroquel. 12/19: back on [place] o2. clinically improving. denies complaints. SOB improving. 12/20: Fluctuating mental status. Fentanyl patch discontinued today. Patient placed on BiPAP intermittently. Started Precedex for agitation. 12/21: Resting comfortably in bed on nasal cannula. Currently on BiPAP. Objective Vital Signs / I&O: Vital Signs 12/20/17 14:30 12/20/17 15:00 12/20/17 15:30 Temperature Pulse Rate 91 H 91 H 89 Respiratory Rate 19 16 19 Blood Pressure 126/74 132/74 136/74 Pulse Oximetry 97 98 98 12/20/17 16:00 12/20/17 16:06 12/20/17 18:00 Temperature 98.7 F Pulse Rate 87 86 97 H Respiratory Rate 18 20 Blood Pressure 145/72 H Pulse Oximetry 96 96 12/20/17 19:49 12/20/17 19:51 12/20/17 20:00 Temperature 99.5 F Pulse Rate 92 H 93 H Respiratory Rate 17 18 Blood Pressure 129/73 Pulse Oximetry 100 96 12/20/17 22:00 12/20/17 23:35 12/20/17 23:36 Temperature Pulse Rate 103 H 92 H Respiratory Rate 13 Blood Pressure Pulse Oximetry 97 12/21/17 00:00 12/21/17 02:00 12/21/17 03:23 Temperature Pulse Rate 90 81 Respiratory Rate 21 Blood Pressure 180/79 H Pulse Oximetry 99 96 12/21/17 03:25 12/21/17 04:00 12/21/17 06:00 Temperature 99.1 F Pulse Rate 63 59 L 54 L Respiratory Rate 12 15 Blood Pressure 133/71 Pulse Oximetry 96 12/21/17 07:00 12/21/17 07:30 12/21/17 07:59 Temperature Pulse Rate 59 L 58 L 64 Respiratory Rate 6 L 9 L 18 Blood Pressure 141/63 H 126/61 Pulse Oximetry 95 95 95 12/21/17 08:00 12/21/17 08:01 12/21/17 08:30 Temperature 97.8 F Pulse Rate 64 65 73 Respiratory Rate 16 18 27 H Blood Pressure 142/67 H 114/56 L Pulse Oximetry 100 91 L 12/21/17 09:00 12/21/17 09:30 12/21/17 10:00 Temperature Pulse Rate 72 74 70 Respiratory Rate 19 18 26 H Blood Pressure 130/62 132/63 120/65 Pulse Oximetry 92 L 92 L 93 L 12/21/17 10:30 12/21/17 11:00 12/21/17 11:24 Temperature Pulse Rate 71 72 69 Respiratory Rate 19 9 L 18 Blood Pressure 144/67 H 138/67 Pulse Oximetry 96 97 12/21/17 11:30 12/21/17 11:46 12/21/17 12:00 Temperature 99.1 F Pulse Rate 69 88 Respiratory Rate 22 15 Blood Pressure 152/67 H 126/65 Pulse Oximetry 100 93 L 94 L 12/21/17 12:30 12/21/17 13:00 Temperature Pulse Rate 82 85 Respiratory Rate 19 18 Blood Pressure 122/58 L 141/71 H Pulse Oximetry 93 L 92 L Intake & Output 12/20/17 12/21/17 12/21/17 18:59 06:59 18:59 Intake Total 392 / 392 1053 / 1053 Output Total 650 / 650 400 / 400 Balance -258 / -258 653 / 653 Weight 73.5 kg Intake: IV 100 / 100 660 / 660 Precedex Inj 200 MCG In NS Inj 100 / 100 48 ML @ 0.2 MCG/KG/HR 3.7 mls/ hr IV.CONT TITRATE PRN Rx#: [id number] Zosyn 4.5 GM Premix 4.5 gm In 100 / 100 300 / 300 100 ml @ 200 mls/hr IV.SIG Q6H HEATHER Rx#:[id number] Potassium Phosphate Inj 30 MMOL 260 / 260 In NS Inj 250 ML @ 42 mls/hr IV.SIG UNSCH PRN Rx#:[id number] Tube Feeding 232 / 232 273 / 273 Water Bolus Amount 60 / 60 120 / 120 Output: Urine Amount (Catheter) 650 / 650 400 / 400 Indwelling Urethral Catheter 650 / 650 400 / 400 Other: Date of Last Bowel Movement 12/20/17 12/20/17 12/20/17 # Bowel Movements 1 Result Diagrams: 12/21/17 02:47 12/21/17 02:47 Objective Remarks: GENERAL: Elderly male lying in bed, on nasal cannula SKIN: Warm and dry HEENT: NCAT, PERRL NECK: Trachea midline. Scarring from prior neck dissection CARDIOVASCULAR: Regular rate and rhythm RESPIRATORY: On nasal cannula, good air entry bilaterally, scattered rhonchi more on the right, no wheezing. GASTROINTESTINAL: Soft, non-tender, non-distended. PEG tube present. MUSCULOSKELETAL: No peripheral edema NEUROLOGICAL: Drowsy, arousable, disoriented, on nasal cannula moving all extremities Assessment and Plan - Assessment and Plan Plan: Neuro/Psych: Acute encephalopathy- resolved Cerebrovascular accident Chronic benzodiazepine use with clonazepam 1 mg 3 times daily Chronic opioid use with fentanyl patches 25 mcg every 72 hours/found with 3 fentanyl patches on him Depression disorder NOS Fentanyl patch 25 mcg/h home dose. Seroquel 50 mg every 12 hourly as needed for agitation. s/p right frontal and occipital CVA, unable to do MRI brain secondary to retained metal in eye according to . * Has bilateral internal carotid artery stents, right carotid stent has ulcerated plaque with 80% stenosis. Per vascular consult, may need additional stent inside of original one in order to cover the ulceration and relieve the stenosis. Will need a carotid angio first for pre-op planning. * ASA, plavix CV: Elevated troponin-- resolved Essential hypertension- chronic Coronary artery disease- chronic Bilateral carotid artery stents- chronic Troponin peaked at 0.39, no longer trending Continue daily full-dose aspirin, plavix Continue amlodipine 10 mg daily/home medication for hypertension 2D echo showed EF 60-65%, moderate pulmonary HTN (PA pressure 32 mmHg), moderate AR, trace TR Resp: Acute respiratory failure-- recurrent- resolving. Acute COPD exacerbation Healthcare associated Aspiration pneumonia Extubated on 12/14, transferred back to [facility] 12/17 for bipap now back to BiPAP prn on 12/20 continue 5 day course of steroids for presumed COPD exacerbation continue full 10 day course of zosyn for HCAP aspiration pneumonia. continue serial nebs PT consult OOB aggressive pulmonary toilet. GI: Chronic dysphagia requring PEG tube nutrition increase tube feeds back to goal. hold for residual >300 cc Famotidine for GI prophylaxis, change to PO Docusate sodium/senna 1 tablet twice daily for bowel regimen : d/c mccray catheter. Endo: SSI with Accu-Cheks every 6 hours to maintain euglycemia Renal: Monitor urine output ID: Day 9 of zosyn for pseudomonal/ E coli pneumonia, will continue for now as patient's respiratory status acutely worsened yesterday. Consult ID for worsening pneumonia/recurrent aspiration. MSK: PT evaluate and treat FEN: Hypokalemia Replace electrolytes as clinically indicated per ICU electrolyte protocol Access -Peripheral IV Prophylaxis -GI -famotidine -DVT -SCD/enoxaparin
--- NOTE | 2017-12-21 14:42 | P.PNPAL ---
Reason for Visit Reason for visit: a. To assist with evaluation and management of symptoms including:shortness of breath, cough, altered mental status b. To assist medical decision maker(s) with: better understanding of current medical conditions; weighing benefits/burdens of medical treatment options; making medical treatment decisions. Subjective Subjective/Interval History: Follow up medically necessary for symptom management of dyspnea, altered mental status and goals of medical treatment. He has transitioned from BiPAP to nasal cannula and is saturating adequately on 3 L nasal cannula he does not appear dyspneic at this evaluation. He has had intermittent episodes of acute desaturation requiring BiPAP support. He does become dyspneic with activity but is eupneic at rest. His dyspnea is mild, intermittent, occurs with activity, resolves with rest there is suspicion that his dyspnea stems from frequent aspiration from decreased mental alertness secondary to fentanyl patch. He has chronically been on a 25 mcg fentanyl patch. When found by EMS he was found to have 3 patches on them at once likely contributory to his aspiration event. Fentanyl patch was removed yesterday. At this evaluation he is alert, eyes open, answering appropriately, focusing, tracking and following commands. His speech is somewhat slurred chronically since his head and neck surgeries, chemotherapies, radiations, but voice is stronger today and he is spontaneously communicating. He currently denies any cough, sputum production, pain, confusion. He states his feeling of air hunger is mild. Case discussed with bedside RN and Dr. Ridley. . Family/Friend Interactions: Spoke with his family at length to include his , both daughters, one granddaughter, mother and stepfather. Reviewed clinical findings, expert opinions, hospital course and potential treatment options. Reviewed palliative care purpose and focus, possible scenarios relating to his clinical course and answered multiple questions. It is the family's wish to proceed with the CT scan of the chest to further evaluate the possibility of a hilar mass. There are goals are aggressive to include intubation and cardiopulmonary resuscitation if necessary, however they state that if recurrent cancer is found on the CT scan, that may change their goals. They are aware that infectious disease has been consulted for further evaluation as his white count had remained elevated as of yesterday's labs. That evaluation is in progress. Plan to reconvene Tuesday to discuss available results. . Advance Directives Living Will: Copy in medical record Health Care Surrogate: Copy in medical record Durable Power of Freezer Assistant: Never completed Advance Directives Date on File: 06/18/13 Health Care Surrogate Name and Number: Reji Rivas [phone] Alt: Howard Leonardo [phone] Objective Vital Signs: Vital Signs 12/20/17 14:30 12/20/17 15:00 12/20/17 15:30 Temperature Pulse Rate 91 H 91 H 89 Respiratory Rate 19 16 19 Blood Pressure 126/74 132/74 136/74 Pulse Oximetry 97 98 98 12/20/17 16:00 12/20/17 16:06 12/20/17 18:00 Temperature 98.7 F Pulse Rate 87 86 97 H Respiratory Rate 18 20 Blood Pressure 145/72 H Pulse Oximetry 96 96 12/20/17 19:49 12/20/17 19:51 12/20/17 20:00 Temperature 99.5 F Pulse Rate 92 H 93 H Respiratory Rate 17 18 Blood Pressure 129/73 Pulse Oximetry 100 96 12/20/17 22:00 12/20/17 23:35 12/20/17 23:36 Temperature Pulse Rate 103 H 92 H Respiratory Rate 13 Blood Pressure Pulse Oximetry 97 12/21/17 00:00 12/21/17 02:00 12/21/17 03:23 Temperature Pulse Rate 90 81 Respiratory Rate 21 Blood Pressure 180/79 H Pulse Oximetry 99 96 12/21/17 03:25 12/21/17 04:00 12/21/17 06:00 Temperature 99.1 F Pulse Rate 63 59 L 54 L Respiratory Rate 12 15 Blood Pressure 133/71 Pulse Oximetry 96 12/21/17 07:00 12/21/17 07:30 12/21/17 07:59 Temperature Pulse Rate 59 L 58 L 64 Respiratory Rate 6 L 9 L 18 Blood Pressure 141/63 H 126/61 Pulse Oximetry 95 95 95 12/21/17 08:00 12/21/17 08:01 12/21/17 08:30 Temperature 97.8 F Pulse Rate 64 65 73 Respiratory Rate 16 18 27 H Blood Pressure 142/67 H 114/56 L Pulse Oximetry 100 91 L 12/21/17 09:00 12/21/17 09:30 12/21/17 10:00 Temperature Pulse Rate 72 74 70 Respiratory Rate 19 18 26 H Blood Pressure 130/62 132/63 120/65 Pulse Oximetry 92 L 92 L 93 L 12/21/17 10:30 12/21/17 11:00 12/21/17 11:24 Temperature Pulse Rate 71 72 69 Respiratory Rate 19 9 L 18 Blood Pressure 144/67 H 138/67 Pulse Oximetry 96 97 12/21/17 11:30 12/21/17 11:46 12/21/17 12:00 Temperature 99.1 F Pulse Rate 69 88 Respiratory Rate 22 15 Blood Pressure 152/67 H 126/65 Pulse Oximetry 100 93 L 94 L 12/21/17 12:30 12/21/17 13:00 Temperature Pulse Rate 82 85 Respiratory Rate 19 18 Blood Pressure 122/58 L 141/71 H Pulse Oximetry 93 L 92 L Intake & Output 12/20/17 12/21/17 12/21/17 18:59 06:59 18:59 Intake Total 392 / 392 1053 / 1053 Output Total 650 / 650 400 / 400 Balance -258 / -258 653 / 653 Weight 162 lb 0.636 oz Intake: IV 100 / 100 660 / 660 Precedex Inj 200 MCG In NS Inj 100 / 100 48 ML @ 0.2 MCG/KG/HR 3.7 mls/ hr IV.CONT TITRATE PRN Rx#: [id number] Zosyn 4.5 GM Premix 4.5 gm In 100 / 100 300 / 300 100 ml @ 200 mls/hr IV.SIG Q6H HEATHER Rx#:[id number] Potassium Phosphate Inj 30 MMOL 260 / 260 In NS Inj 250 ML @ 42 mls/hr IV.SIG UNSCH PRN Rx#:[id number] Tube Feeding 232 / 232 273 / 273 Water Bolus Amount 60 / 60 120 / 120 Output: Urine Amount (Catheter) 650 / 650 400 / 400 Indwelling Urethral Catheter 650 / 650 400 / 400 Other: Date of Last Bowel Movement 12/20/17 12/20/17 12/20/17 # Bowel Movements 1 Physical Exam: CONSTITUTIONAL/GENERAL: This is an adequately nourished patient, alert, conversant, in no acute distress. TUBES/LINES/DRAINS:PIV, PEG tube, PIV. Salas catheter, SCDs NECK: Trachea midline. Supple, nontender. CARDIOVASCULAR: S1, S2 normal,no murmurs, gallops, or rubs. No JVD. Peripheral pulses symmetric. RESPIRATORY/CHEST: Symmetric, unlabored respirations. Breath sounds equal bilaterally. Coarse rhonchi throughout all anterior lung scott, diminished in the bases. On nasal cannula O2. GASTROINTESTINAL: Abdomen soft, non-tender, nondistended. No guarding.Hypoactive sounds present. PEG tube intact GENITOURINARY: Without palpable bladder distension. Salas reinserted after removal yesterday, secondary to urinary retention. MUSCULOSKELETAL: Extremities without clubbing or cyanosis, trace generalized edema. No joint tenderness or effusion noted. No calf tenderness. No mottling or clubbing. LUE weakness. NEUROLOGICAL: Awake, alert, answers appropriately, smiling, conversant, interactive, moving all extremities to command. PSYCHIATRIC: Calm, appropriate. . Diagnostic Tests Laboratory: Laboratory Results - last 72 hr 12/18/17 12/18/17 12/19/17 17:13 23:34 03:47 WBC 13.6 H RBC 3.78 L Hgb 12.6 L Hct 37.2 L MCV 98.4 MCH 33.2 MCHC 33.8 RDW 14.1 Plt Count 272 MPV 9.6 Neut % (Auto) 89.6 H Lymph % (Auto) 5.7 L [place] % (Auto) 4.5 Eos % (Auto) 0.0 Baso % (Auto) 0.2 Neut # (Auto) 12.2 H Lymph # (Auto) 0.8 L [place] # (Auto) 0.6 Eos # (Auto) 0.0 Baso # (Auto) 0.0 WBC Differential . Differential Comment Auto diff final Puncture Site Patient Temperature O2 Saturation ABG pH ABG pCO2 ABG pO2 ABG HCO3 ABG O2 Content ABG Base Excess ABG Methemoglobin Basilio Test Hemoglobin Carboxyhemoglobin O2 Delivery Device Inspired O2 Critical Value Sodium Potassium Chloride Carbon Dioxide Anion Gap BUN Creatinine Estimated GFR POC Glucose 104 137 H Random Glucose Calcium Phosphorus Magnesium Total Bilirubin AST ALT Alkaline Phosphatase Total Protein Albumin 12/19/17 12/19/17 12/19/17 03:47 05:03 11:32 WBC RBC Hgb Hct MCV MCH MCHC RDW Plt Count MPV Neut % (Auto) Lymph % (Auto) [place] % (Auto) Eos % (Auto) Baso % (Auto) Neut # (Auto) Lymph # (Auto) [place] # (Auto) Eos # (Auto) Baso # (Auto) WBC Differential Differential Comment Puncture Site Patient Temperature O2 Saturation ABG pH ABG pCO2 ABG pO2 ABG HCO3 ABG O2 Content ABG Base Excess ABG Methemoglobin Basilio Test Hemoglobin Carboxyhemoglobin O2 Delivery Device Inspired O2 Critical Value Sodium 143 Potassium 3.5 Chloride 108 H Carbon Dioxide 23.1 Anion Gap 12 BUN 22 H Creatinine 0.73 Estimated GFR Greater than 89 POC Glucose 138 H 121 H Random Glucose 135 H Calcium 8.2 L Phosphorus Magnesium Total Bilirubin 0.8 AST 202 H ALT 484 H Alkaline Phosphatase 135 H Total Protein 7.3 Albumin 2.5 L 12/19/17 12/19/17 12/19/17 15:00 17:16 23:18 WBC RBC Hgb Hct MCV MCH MCHC RDW Plt Count MPV Neut % (Auto) Lymph % (Auto) [place] % (Auto) Eos % (Auto) Baso % (Auto) Neut # (Auto) Lymph # (Auto) [place] # (Auto) Eos # (Auto) Baso # (Auto) WBC Differential Differential Comment Puncture Site Right radial Patient Temperature 98.6 O2 Saturation 95 ABG pH 7.49 H ABG pCO2 31 L ABG pO2 84 ABG HCO3 24 ABG O2 Content 17.9 ABG Base Excess 0.7 ABG Methemoglobin 1.4 Basilio Test Present Hemoglobin 13.4 Carboxyhemoglobin 0.7 O2 Delivery Device Bipap 18ipap/6epap Inspired O2 50 Critical Value No Sodium Potassium Chloride Carbon Dioxide Anion Gap BUN Creatinine Estimated GFR POC Glucose 138 H 124 H Random Glucose Calcium Phosphorus Magnesium Total Bilirubin AST ALT Alkaline Phosphatase Total Protein Albumin 12/20/17 12/20/17 12/20/17 05:08 11:21 11:35 WBC 16.1 H RBC 3.64 L Hgb 12.2 L Hct 36.3 L MCV 99.6 MCH 33.4 MCHC 33.6 RDW 13.8 Plt Count 352 MPV 9.7 Neut % (Auto) 90.9 H Lymph % (Auto) 5.9 L [place] % (Auto) 2.9 Eos % (Auto) 0.1 Baso % (Auto) 0.2 Neut # (Auto) 14.6 H Lymph # (Auto) 1.0 [place] # (Auto) 0.5 Eos # (Auto) 0.0 Baso # (Auto) 0.0 WBC Differential . Differential Comment Auto diff final Puncture Site Patient Temperature O2 Saturation ABG pH ABG pCO2 ABG pO2 ABG HCO3 ABG O2 Content ABG Base Excess ABG Methemoglobin Absilio Test Hemoglobin Carboxyhemoglobin O2 Delivery Device Inspired O2 Critical Value Sodium Potassium Chloride Carbon Dioxide Anion Gap BUN Creatinine Estimated GFR POC Glucose 98 207 H Random Glucose Calcium Phosphorus Magnesium Total Bilirubin AST ALT Alkaline Phosphatase Total Protein Albumin 12/20/17 12/20/17 12/20/17 11:35 17:18 23:52 WBC RBC Hgb Hct MCV MCH MCHC RDW Plt Count MPV Neut % (Auto) Lymph % (Auto) [place] % (Auto) Eos % (Auto) Baso % (Auto) Neut # (Auto) Lymph # (Auto) [place] # (Auto) Eos # (Auto) Baso # (Auto) WBC Differential Differential Comment Puncture Site Patient Temperature O2 Saturation ABG pH ABG pCO2 ABG pO2 ABG HCO3 ABG O2 Content ABG Base Excess ABG Methemoglobin Basilio Test Hemoglobin Carboxyhemoglobin O2 Delivery Device Inspired O2 Critical Value Sodium 145 Potassium 3.4 L Chloride 111 H Carbon Dioxide 24.5 Anion Gap 10 BUN 29 H Creatinine 0.65 Estimated GFR Greater than 89 POC Glucose 131 H 109 Random Glucose 119 H Calcium 8.8 Phosphorus 1.9 L Magnesium 2.4 Total Bilirubin 0.8 AST 141 H ALT 367 H Alkaline Phosphatase 165 H Total Protein 7.6 Albumin 2.5 L 12/21/17 12/21/17 12/21/17 02:47 02:47 11:03 WBC 11.7 H RBC 3.25 L Hgb 10.8 L Hct 32.0 L MCV 98.5 MCH 33.1 MCHC 33.7 RDW 14.1 Plt Count 366 MPV 9.6 Neut % (Auto) 70.8 H Lymph % (Auto) 19.7 [place] % (Auto) 8.8 H Eos % (Auto) 0.0 Baso % (Auto) 0.7 Neut # (Auto) 8.3 H Lymph # (Auto) 2.3 [place] # (Auto) 1.0 H Eos # (Auto) 0.0 Baso # (Auto) 0.1 WBC Differential . Differential Comment Auto diff final Puncture Site Patient Temperature O2 Saturation ABG pH ABG pCO2 ABG pO2 ABG HCO3 ABG O2 Content ABG Base Excess ABG Methemoglobin Basilio Test Hemoglobin Carboxyhemoglobin O2 Delivery Device Inspired O2 Critical Value Sodium 145 Potassium 4.1 Chloride 111 H Carbon Dioxide 27.5 Anion Gap 7 BUN 30 H Creatinine 0.61 Estimated GFR Greater than 89 POC Glucose 103 Random Glucose 105 Calcium 8.6 Phosphorus Magnesium Total Bilirubin 0.6 AST 142 H ALT 335 H Alkaline Phosphatase 143 H Total Protein 7.3 Albumin 2.3 L Result Diagrams: 12/21/17 02:47 12/21/17 02:47 Microbiology: Microbiology 12/18/17 05:14 Aerobic Blood Culture - Preliminary Blood - Peripheral No growth in 3 days Anaerobic Blood Culture - Final QNS - See aerobic report. 12/18/17 05:05 Aerobic Blood Culture - Preliminary Blood - Peripheral No growth in 3 days Anaerobic Blood Culture - Preliminary No growth in 3 days Imaging: Chest X-Ray 12/11/17 22:21 CONCLUSION: 1. Underinflation with perihilar interstitial prominence which could be related to the underinflation or could represent pulmonary edema. No airspace consolidation is identified. 2. Endotracheal tube tip measures 2.7 cm from the rosette. Cervical Spine CT 12/12/17 00:00 CONCLUSION: No acute cervical spine abnormality is identified. Head CT 12/12/17 00:00 CONCLUSION: No acute intracranial abnormality is identified. . Head CTA 12/12/17 00:00 CONCLUSION: 1. Negative CTA Head. Neck CTA 12/12/17 00:00 CONCLUSION: 1. Atelectatic calcifications and areas of ulceration involving the origin of the right internal carotid artery with approximate 70-80% stenosis right at the takeoff of the right ICA prior to the start of the patient's internal coronary stent. Head CT 12/12/17 12:29 CONCLUSION: 1. Subtle areas of low attenuation are now seen in the right frontal and occipital regions of concern for areas of evolving infarction. There is no hemorrhage or mass effect. . Chest X-Ray 12/13/17 06:00 CONCLUSION: Mildly increased perihilar interstitial and airspace opacities. Although nonspecific the appearance could be related to pulmonary edema in the appropriate clinical setting. Chest X-Ray 12/17/17 11:50 CONCLUSION: Interval extubation with improved lung exam. Chest X-Ray 12/20/17 00:00 CONCLUSION: Continued prominence of the right bet[place] with continued infiltrate predominantly within the right lung. Changes are stable compared to previous. At some point, CT imaging would be of benefit to exclude right hilar mass if this has not already been performed. Procedures: 12/11/2017-Intubation- in the field Assessment and Plan - Disease Oriented Problem List (1) Acute respiratory failure (2) Hypertension (3) Depression (4) Coronary artery disease (5) History of head and neck cancer Pertinent Non-Medical Issues: Psychosocial: Patient was born in [place], [place]. He moved to [place] where he lived for approximately 20 years and then moved to [place] with for another approximate 20 years. Patient recently moved to [place] 5 years ago. Patient is been to his current for 48 years. They have 2 adult daughters, 8 grandchildren and great-grandchildren. 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 Spiritual: No anglican affiliation. Legal: Patient has completed healthcare surrogate and living will. (Spouse and daughter provided with copies from last hospital hospitalization) Ethical issues impacting care: None identified at this time. Important Contacts: Spouse- Evelyn Mendoza- [phone] Daughter- Malissa Lockhart- [phone] Prognosis: Mr. 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 Patient was brought to the emergency room by EMS on was found unresponsive at home with copious oral secretions identified as tube feeding. When EMS arrived patient was found to have spontaneous respirations, palpable pulse and was hypotensive with SBP in the 90s, and decreased level of consciousness. Patient`s O2 saturation was 60% at scene, was intubated and suctioned. Clinical course complicated with acute respiratory failure. 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 . Code Status: Full Code Plan: PLAN: Legal decision maker: Patient is currently awake and interactive. Due to intermittent confusion previously seen, he may benefit from shared decision making with his . It is unknown at this time whether the patient will be able to fully regain previous capacity. Patient's healthcare surrogate is his Evelyn Mendoza and his alternate healthcare surrogate is his daughter Malissa Lawrence. Goals: Aggressive. Family is hopeful at this time that patient will recover. Family at this point wants patient to be a full code though patient`s stated that if patient would require tracheostomy placement, she is unsure if she will proceed with that. CODE STATUS: Full Code SYMPTOMS: * Shortness of breath: Patient initially aspirated from tube feedings and required intubation. After extubation, he has required BiPAP intermittently to maintain saturations, although tolerates brief periods of nasal cannula oxygen before acute desaturations. Dyspnea worsens with activity. Remains on Zosyn for treatment of aspiration pneumonia. Recommend aggressive pulmonary toilet. Chest x-ray today shows continued prominence of the right bethel with continued infiltrate predominantly within the right lung, stable compared to previous, however CT chest recommended to rule out hilar mass by radiology. This has been requested by the family and has been ordered by Dr. Ridley * Altered mental status: Patient was found sleeping on the couch at 4 PM by his and when he had not aroused by 8 PM, she tried to awaken him and found him unresponsive with O2 saturations in the 60s per EMS. He was found to have 325 mcg fentanyl patches on him. It is unknown how long he had severe hypoxia secondary to aspiration of large quantities of tube feeding. Repeat Head CT on 12/12 showed right hemispheric stroke in the frontal occipital area. Has been spontaneously moving right side and LLE, however LUE weak. Mentation improved today after discontinuation of the fentanyl patch yesterday. Plan to continue to hold fentanyl patch. No further recommendations at this time. Palliative care will continue to follow the patient during hospital course as condition evolves, to assist patient/decision-maker with understanding of their medical conditions, weighing benefits/burdens of treatment options, for clarification of goals of treatment. Additionally will assist with any symptoms of palliative concern Attestation Attestation: To help prompt me to consider important information that might be impacting today's encounter and assessment, information from prior notes written by myself or my colleagues may have been "brought forward" into today's note. My signature on this note, however, is an attestation that I personally performed the exam, history, and/or decision-making noted today, and, unless otherwise indicated, the interactions with patient, family, and staff as well as the review of records all occurred today. I also attest that the listed assessment and stated plan reflect my best clinical judgment today based on the combination of historical information, prior notes, and today's exam/ interactions. When time spent is documented, it refers only to time spent today by the signer, or if indicated, combined time spent today by collaborating physician/nurse practitioner. .
--- NOTE | 2017-12-21 15:08 | P.PNPL ---
Subjective Interval history: 67 YOWM with H&N ca, s/p surgery radiation Breathing better Weaned to NC Mild sob Physical Exam Vital signs: Vital Signs 12/20/17 15:30 12/20/17 16:00 12/20/17 16:06 Temperature 98.7 F Pulse Rate 89 87 86 Respiratory Rate 19 18 20 Blood Pressure 136/74 145/72 H Pulse Oximetry 98 96 96 12/20/17 18:00 12/20/17 19:49 12/20/17 19:51 Temperature Pulse Rate 97 H 92 H Respiratory Rate 17 Blood Pressure Pulse Oximetry 100 12/20/17 20:00 12/20/17 22:00 12/20/17 23:35 Temperature 99.5 F Pulse Rate 93 H 103 H Respiratory Rate 18 Blood Pressure 129/73 Pulse Oximetry 96 97 12/20/17 23:36 12/21/17 00:00 12/21/17 02:00 Temperature Pulse Rate 92 H 90 81 Respiratory Rate 13 21 Blood Pressure 180/79 H Pulse Oximetry 99 12/21/17 03:23 12/21/17 03:25 12/21/17 04:00 Temperature 99.1 F Pulse Rate 63 59 L Respiratory Rate 12 15 Blood Pressure 133/71 Pulse Oximetry 96 96 12/21/17 06:00 12/21/17 07:00 12/21/17 07:30 Temperature Pulse Rate 54 L 59 L 58 L Respiratory Rate 6 L 9 L Blood Pressure 141/63 H 126/61 Pulse Oximetry 95 95 12/21/17 07:59 12/21/17 08:00 12/21/17 08:01 Temperature Pulse Rate 64 64 65 Respiratory Rate 18 16 18 Blood Pressure 142/67 H Pulse Oximetry 95 100 12/21/17 08:30 12/21/17 09:00 12/21/17 09:30 Temperature 97.8 F Pulse Rate 73 72 74 Respiratory Rate 27 H 19 18 Blood Pressure 114/56 L 130/62 132/63 Pulse Oximetry 91 L 92 L 92 L 12/21/17 10:00 12/21/17 10:30 12/21/17 11:00 Temperature Pulse Rate 70 71 72 Respiratory Rate 26 H 19 9 L Blood Pressure 120/65 144/67 H 138/67 Pulse Oximetry 93 L 96 97 12/21/17 11:24 12/21/17 11:30 12/21/17 11:46 Temperature Pulse Rate 69 69 Respiratory Rate 18 22 Blood Pressure 152/67 H Pulse Oximetry 100 93 L 12/21/17 12:00 12/21/17 12:30 12/21/17 13:00 Temperature 99.1 F Pulse Rate 88 82 85 Respiratory Rate 15 19 18 Blood Pressure 126/65 122/58 L 141/71 H Pulse Oximetry 94 L 93 L 92 L Intake & Output 12/20/17 12/21/17 12/21/17 18:59 06:59 18:59 Intake Total 392 / 392 1053 / 1053 Output Total 650 / 650 400 / 400 Balance -258 / -258 653 / 653 Weight 73.5 kg Intake: IV 100 / 100 660 / 660 Precedex Inj 200 MCG In NS Inj 100 / 100 48 ML @ 0.2 MCG/KG/HR 3.7 mls/ hr IV.CONT TITRATE PRN Rx#: [id number] Zosyn 4.5 GM Premix 4.5 gm In 100 / 100 300 / 300 100 ml @ 200 mls/hr IV.SIG Q6H HEATHER Rx#:[id number] Potassium Phosphate Inj 30 MMOL 260 / 260 In NS Inj 250 ML @ 42 mls/hr IV.SIG UNSCH PRN Rx#:[id number] Tube Feeding 232 / 232 273 / 273 Water Bolus Amount 60 / 60 120 / 120 Output: Urine Amount (Catheter) 650 / 650 400 / 400 Indwelling Urethral Catheter 650 / 650 400 / 400 Other: Date of Last Bowel Movement 12/20/17 12/20/17 12/20/17 # Bowel Movements 1 GENERAL: Thin built wm, mild SOB SKIN: Warm and dry. HEAD: Normocephalic. EYES: No scleral icterus. No injection or drainage. NECK: Supple, trachea midline. No JVD or lymphadenopathy. CARDIOVASCULAR: Regular rate and rhythm without murmurs, gallops, or rubs. RESPIRATORY: Breath sounds equal bilaterally. No accessory muscle use. GASTROINTESTINAL: Abdomen soft, non-tender, nondistended. MUSCULOSKELETAL: No cyanosis, or edema. BACK: Nontender without obvious deformity. No CVA tenderness. - Urinary Catheter Management Indwelling Urethral Catheter Cath placed during this visit: yes Reason for continuing: Acute urinary retention Insertion date: 12/20/17 Insertion time: 14:52 Assessment and Plan - Plan IMPRESSION: 1. Respiratory failure. He is on BiPAP. 2. Possible hilar mass. 3. History of head and neck cancer. 4. Possible aspiration. PLAN: Aerosol nebs Supplement 02 CPAP prn Palliative care consulted If pt wants to cont brown, will need CT chest with contrast to evaluate hilar mass covering for me.
--- NOTE | 2017-12-21 16:43 | CT ---
EXAM DATE: 12/21/2017 4:37 PM EDT AGE/SEX: 67 years / Male INDICATIONS: Chest pain. CLINICAL DATA: This is the patient's initial encounter. Patient reports that signs and symptoms have been present for 1 day and indicates a pain score of 3/10. MEDICAL/SURGICAL HISTORY: Hypertension. Cardiovascular disease. Throat and tongue cancer. Coronar y artery stent. Appendectomy. RADIATION DOSE: 18.01 CTDI (mGy) COMPARISON: C, CHEST 1V SINGLE AP, 12/20/2017. . TECHNIQUE: Volumetric scanning was performed using a multi-row detector CT scanner during bolus infu kristie of 50 ml Omnipaque 350 (iohexol) nonionic water-soluble contrast as a single exam dose. The elda a was post processed with a variety of visualization algorithms including full volume maximum intensi ty projection and sliding thin slab reformation. Using automated exposure control and adjustment of the mA and/or kV according to patient size, radiation dose was kept as low as reasonably achievable t o obtain optimal diagnostic quality images. DICOM format image data is available electronically for review and comparison. FINDINGS: There is dense consolidation seen in the right lower lobe as well as patchy parenchymal infiltrates i n the right middle lobe and right lower lobe. There is mild focal infiltrate in the left lower lobe s uperior segment and left upper lobe. Apparent right subclavian artery is identified. Mildly prominent subcarinal lymph node is noted measuring up to 1.4 cm in short axis dimension, right hilar 1.1 cm sh ort axis dimension lymph node. There is no evidence for pulmonary embolism. Coronary artery calcifica tion is seen and atherosclerotic calcification of the aorta is noted. Degenerative changes of the spi ne are noted. CONCLUSION: 1. Apparent right subclavian artery. 2. Mildly enlarged subcarinal and right hilar lymph nodes. adenopathy. 3. Scattered pulmonary infiltrates including right lower lobe consolidation with air bronchogram for mation. 4. Atherosclerosis. 5. No evidence for pulmonary embolism. Electronically signed by: Delfin Melendez MD 12/21/2017 4:42 PM EDT
[2017-12-21] MEDS: Melatonin 5 MG Tablet PO PRN (20:10)
[2017-12-21] MEDS: fentaNYL Citrate Inj 100 MCG/2 ML Ampul IV.PUSH PRN (23:54)
[2017-12-22] MEDS: Insulin NovoLOG Aspart Correctional Sugar Inj SQ SCH ×4 (00:22→17:11)
[2017-12-22] MEDS: QUEtiapine 100 MG Tablet PO PRN (01:03)
[2017-12-22 04:12] LABS: Baso % (Auto) 0.1 % (0.0-2.0); Hematocrit 28.7 % (39.0-51.0); Hemoglobin 9.6 gm/dL (13.0-17.0); Lymph # (Auto) 1.9 th/mm3 (1.0-4.8); Lymph % (Auto) 16.5 % (9.0-44.0); Mean Corpuscular HGB Conc 33.3 % (32.0-36.0); Mean Corpuscular Hemoglobin 33.2 pg (27.0-34.0); Mean Corpuscular Volume 99.8 fL (80.0-100.0); Mean Platelet Volume 9.6 fL (7.0-11.0); Mono # (Auto) 0.8 th/mm3 (0.0-0.9); Mono % (Auto) 7.3 % (0.0-8.0); Neut # (Auto) 8.6 th/mm3 (1.8-7.7); Neut % (Auto) 76.1 % (16.0-70.0); Platelet Count 400 th/mm3 (150-450); Red Blood Count 2.88 mil/mm3 (4.50-5.90); Red Cell Distribution Width 13.8 % (11.6-17.2); White Blood Count 11.3 th/mm3 (4.0-11.0)
[2017-12-22 04:47] LABS: Albumin 2.1 g/dL (3.4-5.0); Anion Gap 11 meq/L (5-15); Aspartate Aminotransferase 165 U/L (15-37); Blood Urea Nitrogen 36 mg/dL (7-18); Calcium 8.1 mg/dL (8.5-10.1); Carbon Dioxide 24.4 meq/L (21.0-32.0); Chloride 111 meq/L (98-107); Glomerular Filtration Rate Greater Than 89 mL/min (>89); Glucose,Random 111 mg/dL (74-106); Sodium 146 meq/L (136-145)
[2017-12-22 04:52] LABS: Alanine Aminotransferase 386 U/L (12-78); Alkaline Phosphatase 126 U/L (45-117); Total Protein 6.7 g/dL (6.4-8.2)
[2017-12-22] MEDS: Oral Hygiene Kit OROPHARYNG SCH ×3 (05:34→15:55)
[2017-12-22] MEDS: Piperacil/Tazo 4.5 GM Premix 4.5 GM/100 ML BAG IV.SIG SCH ×3 (05:51→17:01)
[2017-12-22] MEDS: Aspirin 325 MG Tablet PO SCH (08:03)
[2017-12-22] MEDS: Senna/Docusate Sodium 8.6/50 MG Tablet PO SCH ×2 (08:03→20:30)
[2017-12-22] MEDS: clonazePAM 0.5 MG Tablet PO SCH ×3 (08:03→22:48)
[2017-12-22] MEDS: amLODIPine 10 MG Tablet PO SCH (08:03)
[2017-12-22] MEDS: Chlorhexidine 0.12% Oral Kit 15 ML UDC OROPHARYNG SCH ×2 (08:04→20:30)
[2017-12-22] MEDS: Famotidine 20 MG Tablet PO SCH (08:04)
[2017-12-22] MEDS: MethylPREDNISolone Sod Succinate Inj 125 MG/2 ML Vial IV.PUSH SCH (08:04)
[2017-12-22] MEDS: Potassium Chlor 20 mEq Premix 20 MEQ/100 ML PIGGYBACK IV.SIG PRN ×2 (08:09→11:12)
--- NOTE | 2017-12-22 11:55 | P.PNID ---
Subjective Remarks: Mr. 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 Patient was brought to the emergency room by EMS on 12/11/17 after he was found unresponsive at home with copious oral secretions identified as tube feeding. When EMS arrived patient had spontaneous respirations, palpable pulse and was hypotensive with SBP in the 90s , and decreased level of consciousness. O2 saturation was 60% at scene, and he was intubated and copius secretions were suctioned. Patient is dysphagic, he only takes his medications and feedings through a PEG tube. Per ER report patient was last seen normal in the morning on 12/11 and it is not known how long he had been unresponsive. Patient was found with x3 patches of 25mcg Fentanyl patches on him. According to his he is supposed to be on Fentanyl 25mcg for 72 hrs. 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 He does not follow with an oncologist but he follows with ENT Dr. Gonzalez. ER Course: * Vital signs: Temperature 97.8F, pulse 78, respirations 20, BP 92/51, O2 saturation 100% * Chest x-ray revealed underinflation with perihilar interstitial prominence which could be related to the underinflation could represent pulmonary edema. No airspace consolidation is identified. * ABG results pH 7.25, PCO2 45, PO2 100, bicarb 19, base excess -7, O2 sats 95% on vent settings PRVC/AC14/550/IT 1.0/8/100% * Laboratory workup revealed WBC 9.8, hemoglobin 13.4, hematocrit 38.7, platelet count 194, sodium 141, potassium 3.2, BUN/creatinine 23/1.37, lactic acid 12.4, calcium 7.4, AST 152, ALT 136, alkaline phosphatase 85, total protein 6.8, albumin 3.2, troponin 0 0.04, T10 0.7, INR 1.1, APTT 26.8. CT cervical spine on 12/12/17 revealed no acute cervical spine abnormality. Head CT on 12/12/17 revealed no acute intracranial abnormality. Laboratory workup today revealing WBC 10.5, hemoglobin 12.8, hematocrit 37.0, platelet count 208, Cr 0.83. Infectious disease is consulted for evaluation and Mment of recurrent aspiration or HCAP in an Immune compromised patient. Overnight events reviewed No fevers No rash No diarrhea On Room air Speech not clear. Antibiotics: Zosyn IV Lines: Lines ok Past Medical History: reviewed Allergies/Adverse Reactions: Allergies morphine Allergy (Intermediate, Verified 03/04/17 21:32) Confusion HALLICINATES hydromorphone Adverse Reaction (Intermediate, Verified 12/11/17 22:23) Confusion HALLUCIATES CONFUSION Objective Vital Signs 12/21/17 12:00 12/21/17 12:30 12/21/17 13:00 Temperature 99.1 F Pulse Rate 88 82 85 Respiratory Rate 18 19 18 Blood Pressure 126/65 122/58 L 141/71 H Pulse Oximetry 94 L 93 L 92 L 12/21/17 13:30 12/21/17 14:00 12/21/17 14:30 Temperature Pulse Rate 91 H 86 81 Respiratory Rate 25 H 17 12 Blood Pressure 122/66 124/68 138/69 Pulse Oximetry 90 L 94 L 12/21/17 15:00 12/21/17 15:26 12/21/17 15:30 Temperature Pulse Rate 93 H 85 82 Respiratory Rate 33 H 16 17 Blood Pressure 147/78 H 136/74 Pulse Oximetry 95 98 12/21/17 15:57 12/21/17 16:00 12/21/17 16:30 Temperature 97.9 F Pulse Rate 95 H 94 H 96 H Respiratory Rate 15 20 16 Blood Pressure 127/67 123/62 138/68 Pulse Oximetry 12/21/17 16:53 12/21/17 17:00 12/21/17 17:30 Temperature Pulse Rate 91 H 98 H 93 H Respiratory Rate 0 L 21 10 L Blood Pressure 144/70 H 149/73 H 142/70 H Pulse Oximetry 94 L 96 92 L 12/21/17 18:00 12/21/17 18:30 12/21/17 19:00 Temperature Pulse Rate 95 H 98 H 98 H Respiratory Rate 17 16 19 Blood Pressure 137/65 139/67 130/63 Pulse Oximetry 95 89 L 100 12/21/17 19:30 12/21/17 20:00 12/21/17 20:05 Temperature 97.6 F Pulse Rate 94 H 95 H Respiratory Rate 15 18 Blood Pressure 139/72 142/79 H Pulse Oximetry 94 L 100 99 12/21/17 20:07 12/21/17 20:30 12/21/17 20:55 Temperature Pulse Rate 96 H 93 H Respiratory Rate 18 17 Blood Pressure 127/72 Pulse Oximetry 98 99 12/21/17 21:00 12/21/17 21:30 12/21/17 22:00 Temperature Pulse Rate 96 H 92 H 93 H Respiratory Rate 13 6 L 13 Blood Pressure 136/69 132/75 133/72 Pulse Oximetry 96 99 98 12/21/17 22:30 12/21/17 23:00 12/21/17 23:30 Temperature Pulse Rate 91 H 88 89 Respiratory Rate 14 13 12 Blood Pressure 133/73 140/76 136/64 Pulse Oximetry 98 99 98 12/21/17 23:50 12/22/17 00:00 12/22/17 00:30 Temperature Pulse Rate 90 97 H Respiratory Rate 18 12 Blood Pressure 122/68 124/65 Pulse Oximetry 96 92 L 91 L 12/22/17 00:44 12/22/17 01:00 12/22/17 01:30 Temperature Pulse Rate 96 H 93 H Respiratory Rate 18 20 14 Blood Pressure 144/68 H 123/62 Pulse Oximetry 94 L 95 12/22/17 02:00 12/22/17 02:30 12/22/17 03:00 Temperature Pulse Rate 85 88 97 H Respiratory Rate 0 L 0 L 18 Blood Pressure 106/60 118/72 124/71 Pulse Oximetry 94 L 94 L 93 L 12/22/17 03:30 12/22/17 04:00 12/22/17 04:01 Temperature Pulse Rate 104 H 92 H Respiratory Rate 22 20 Blood Pressure 157/78 H 140/66 Pulse Oximetry 91 L 93 L 93 L 12/22/17 04:30 12/22/17 05:00 12/22/17 05:30 Temperature Pulse Rate 93 H 89 93 H Respiratory Rate 17 17 25 H Blood Pressure 142/72 H 128/71 134/72 Pulse Oximetry 93 L 94 L 93 L 12/22/17 05:34 12/22/17 06:00 12/22/17 06:30 Temperature Pulse Rate 86 84 Respiratory Rate 18 22 19 Blood Pressure 128/68 125/63 Pulse Oximetry 93 L 12/22/17 07:49 Temperature Pulse Rate Respiratory Rate Blood Pressure Pulse Oximetry 95 Intake & Output 12/21/17 12/22/17 12/22/17 18:59 06:59 18:59 Intake Total 100 / 100 1023 / 1023 100 / 100 Output Total 800 / 800 550 / 550 Balance -700 / -700 473 / 473 100 / 100 Weight 81 kg Intake: IV 100 / 100 300 / 300 100 / 100 Zosyn 4.5 GM Premix 4.5 gm In 100 / 100 300 / 300 100 ml @ 200 mls/hr IV.SIG Q6H HEATHER Rx#:[id number] KCl 20 mEq Premix Inj 20 meq In 100 / 100 100 ml @ 50 mls/hr IV.SIG Q2H PRN Rx#:[id number] Tube Feeding 323 / 323 Water Bolus Amount 400 / 400 Output: Urine Amount (Catheter) 800 / 800 550 / 550 Indwelling Urethral Catheter 800 / 800 550 / 550 Other: Date of Last Bowel Movement 12/20/17 12/20/17 12/20/17 12/18/17 05:14 Blood - Peripheral Aerobic Blood Culture - Preliminary No growth in 4 days 12/18/17 05:14 Blood - Peripheral Anaerobic Blood Culture - Final QNS - See aerobic report. 12/18/17 05:05 Blood - Peripheral Aerobic Blood Culture - Preliminary No growth in 4 days 12/18/17 05:05 Blood - Peripheral Anaerobic Blood Culture - Preliminary No growth in 4 days Lab - Hematology Results 12/20/17 12/21/17 12/22/17 11:35 02:47 02:40 WBC 16.1 H 11.7 H 11.3 H RBC 3.64 L 3.25 L 2.88 L Hgb 12.2 L 10.8 L 9.6 L Hct 36.3 L 32.0 L 28.7 L MCV 99.6 98.5 99.8 MCH 33.4 33.1 33.2 MCHC 33.6 33.7 33.3 RDW 13.8 14.1 13.8 Plt Count 352 366 400 MPV 9.7 9.6 9.6 Neut % (Auto) 90.9 H 70.8 H 76.1 H Lymph % (Auto) 5.9 L 19.7 16.5 [place] % (Auto) 2.9 8.8 H 7.3 Eos % (Auto) 0.1 0.0 0.0 Baso % (Auto) 0.2 0.7 0.1 Neut # (Auto) 14.6 H 8.3 H 8.6 H Lymph # (Auto) 1.0 2.3 1.9 [place] # (Auto) 0.5 1.0 H 0.8 Eos # (Auto) 0.0 0.0 0.0 Baso # (Auto) 0.0 0.1 0.0 WBC Differential . . . Differential Comment Auto diff final Auto diff final Auto diff final Lab - Chemistry Results 12/20/17 12/20/17 12/20/17 11:35 17:18 23:52 Sodium 145 Potassium 3.4 L Chloride 111 H Carbon Dioxide 24.5 Anion Gap 10 BUN 29 H Creatinine 0.65 Estimated GFR Greater than 89 POC Glucose 131 H 109 Random Glucose 119 H Calcium 8.8 Phosphorus 1.9 L Magnesium 2.4 Total Bilirubin 0.8 AST 141 H ALT 367 H Alkaline Phosphatase 165 H Total Protein 7.6 Albumin 2.5 L 12/21/17 12/21/17 12/21/17 02:47 11:03 17:20 Sodium 145 Potassium 4.1 Chloride 111 H Carbon Dioxide 27.5 Anion Gap 7 BUN 30 H Creatinine 0.61 Estimated GFR Greater than 89 POC Glucose 103 146 H Random Glucose 105 Calcium 8.6 Phosphorus Magnesium Total Bilirubin 0.6 AST 142 H ALT 335 H Alkaline Phosphatase 143 H Total Protein 7.3 Albumin 2.3 L 12/22/17 12/22/17 12/22/17 00:08 02:40 05:45 Sodium 146 H Potassium 3.0 L D Chloride 111 H Carbon Dioxide 24.4 Anion Gap 11 BUN 36 H Creatinine 0.63 Estimated GFR Greater than 89 POC Glucose 184 H 136 H Random Glucose 111 H Calcium 8.1 L Phosphorus Magnesium Total Bilirubin 0.5 AST 165 H ALT 386 H Alkaline Phosphatase 126 H Total Protein 6.7 D Albumin 2.1 L 12/22/17 11:07 Sodium Potassium Chloride Carbon Dioxide Anion Gap BUN Creatinine Estimated GFR POC Glucose 156 H Random Glucose Calcium Phosphorus Magnesium Total Bilirubin AST ALT Alkaline Phosphatase Total Protein Albumin Imaging: ITS Impressions Cervical Spine CT 12/12/17 00:00 CONCLUSION: No acute cervical spine abnormality is identified. Head CTA 12/12/17 00:00 CONCLUSION: 1. Negative CTA Head. Neck CTA 12/12/17 00:00 CONCLUSION: 1. Atelectatic calcifications and areas of ulceration involving the origin of the right internal carotid artery with approximate 70-80% stenosis right at the takeoff of the right ICA prior to the start of the patient's internal coronary stent. Head CT 12/12/17 12:29 CONCLUSION: 1. Subtle areas of low attenuation are now seen in the right frontal and occipital regions of concern for areas of evolving infarction. There is no hemorrhage or mass effect. . Chest X-Ray 12/20/17 00:00 CONCLUSION: Continued prominence of the right [place] with continued infiltrate predominantly within the right lung. Changes are stable compared to previous. At some point, CT imaging would be of benefit to exclude right hilar mass if this has not already been performed. Chest CTA 12/21/17 00:00 CONCLUSION: 1. Apparent right subclavian artery. 2. Mildly enlarged subcarinal and right hilar lymph nodes. adenopathy. 3. Scattered pulmonary infiltrates including right lower lobe consolidation with air bronchogram formation. 4. Atherosclerosis. 5. No evidence for pulmonary embolism. Physical Exam: GENERAL: Well-nourished well-developed, not in acute distress SKIN: Cool and dry, no generalized rash HEAD: Atraumatic. Normocephalic. No temporal or scalp tenderness. EYES: Pupils equal round and reactive. Scleral icterus. No injection or drainage. No petechia ENT: Right side hemiglossectomy, voice garbled and not clear. NECK: Surgical scar intact with no e.o infection CARDIOVASCULAR: HS audible. RESPIRATORY: Clear to auscultation bilaterally. GASTROINTESTINAL: Abdomen soft nontender. MUSCULOSKELETAL: Extremities without clubbing, cyanosis. NEUROLOGICAL: Alert oriented 3. Nonfocal. Psych cooperative PEG tube site ok. IV line sites ok. Assessment and Plan - Plan Aspiration Pneumonia on admission HCAP E.coli, PSAE and Strep lung infection Acute resp failure on admission ? due to excessive fentanyl patch dose. Head neck cancer ? in remission Recs Continue Zosyn IV Follow cultures Follow clinical course. rachel CCM
--- NOTE | 2017-12-22 13:59 | P.PNCC ---
Subjective Subjective Remarks/Hospital Course: 67-year-old male with past medical history of head and neck cancer presents from home after being found unresponsive. Patient was found by EMS to have spontaneous respirations palpable pulse and blood pressure but markedly decreased level of consciousness, hypotensive with large amount of tube feeding contents in the oral cavity. Patient has history of head neck cancer and takes no oral medications takes all medications and feedings through PEG tube. Patient was last seen normal approximately at breakfast time on Tuesday and then family members found him unresponsive. Unknown downtime. Upon EMS arrival patient was assessed and suctioned and initial O2 saturations were 60% patient was placed on supplemental oxygen with improved ventilations and then subsequently intubated with a 7.5 endotracheal tube. Per EMS copious amounts of suctioning was performed and large amounts of tube feeding were suctioned. Patient presents now with endotracheal tube in place bilateral breath sounds to auscultation with bag valve ventilation and normotensive upon EMS presentation however initial blood pressure here mildly hypotensive with systolic pressure of 90 mmHg. Patient remains unresponsive. Family members not available. Patient with known allergies to narcotics. No other medical history is available. 12/12: Afebrile. Currently on propofol and fentanyl drips. Not really moving his left upper lower extremity. CT brain with CT angiogram brain ordered. Cannot do MRI due to retained metal metal in eye according to . 12/13: Sedated, arousable, orally intubated on mechanical ventilation 12/14: Sedated, arousable, orally intubated on mechanical ventilation. 12/15: Extubated yesterday, on nasal cannula tolerating well. Precedex to be titrated off this morning. Fentanyl patch resumed yesterday. Patient is awake and alert, knows he is in the hospital. He recognizes his family members. Minimal weakness on the left side. Moving right side well. Tolerating PEG feeds. ___ 12/17: Patient transferred to hospitalist service yesterday, but this morning was again found to be in respiratory distress. Concern for recurrent aspiration as he had high tube feed residuals via PEG. Transferred to [facility]. 12/18: Patient tolerated bipap well yesterday, had some agitation overnight which improved with seroquel. 12/19: back on [place] o2. clinically improving. denies complaints. SOB improving. 12/20: Fluctuating mental status. Fentanyl patch discontinued today. Patient placed on BiPAP intermittently. Started Precedex for agitation. 12/21: Resting comfortably in bed on nasal cannula. Currently on BiPAP. Subjective 12/22: Afebrile. Tolerated BiPAP overnight. Large black BM today. Holding aspirin and clopidogrel. Holding enoxaparin. Stat CBC and Hemoccult ordered. And coags. Appears clinically stable. Objective Vital Signs / I&O: Vital Signs 12/21/17 14:00 12/21/17 14:30 12/21/17 15:00 Temperature Pulse Rate 86 81 93 H Respiratory Rate 17 12 33 H Blood Pressure 124/68 138/69 147/78 H Pulse Oximetry 90 L 94 L 95 12/21/17 15:26 12/21/17 15:30 12/21/17 15:57 Temperature Pulse Rate 85 82 95 H Respiratory Rate 16 17 15 Blood Pressure 136/74 127/67 Pulse Oximetry 98 12/21/17 16:00 12/21/17 16:30 12/21/17 16:53 Temperature 97.9 F Pulse Rate 94 H 96 H 91 H Respiratory Rate 20 16 0 L Blood Pressure 123/62 138/68 144/70 H Pulse Oximetry 94 L 12/21/17 17:00 12/21/17 17:30 12/21/17 18:00 Temperature Pulse Rate 98 H 93 H 95 H Respiratory Rate 21 10 L 17 Blood Pressure 149/73 H 142/70 H 137/65 Pulse Oximetry 96 92 L 95 12/21/17 18:30 12/21/17 19:00 12/21/17 19:30 Temperature Pulse Rate 98 H 98 H 94 H Respiratory Rate 16 19 15 Blood Pressure 139/67 130/63 139/72 Pulse Oximetry 89 L 100 94 L 12/21/17 20:00 12/21/17 20:05 12/21/17 20:07 Temperature 97.6 F Pulse Rate 95 H 96 H Respiratory Rate 18 18 Blood Pressure 142/79 H Pulse Oximetry 100 99 12/21/17 20:30 12/21/17 20:55 12/21/17 21:00 Temperature Pulse Rate 93 H 96 H Respiratory Rate 17 13 Blood Pressure 127/72 136/69 Pulse Oximetry 98 99 96 12/21/17 21:30 12/21/17 22:00 12/21/17 22:30 Temperature Pulse Rate 92 H 93 H 91 H Respiratory Rate 6 L 13 14 Blood Pressure 132/75 133/72 133/73 Pulse Oximetry 99 98 98 12/21/17 23:00 12/21/17 23:30 12/21/17 23:50 Temperature Pulse Rate 88 89 Respiratory Rate 13 12 Blood Pressure 140/76 136/64 Pulse Oximetry 99 98 96 12/22/17 00:00 12/22/17 00:30 12/22/17 00:44 Temperature Pulse Rate 90 97 H Respiratory Rate 18 12 18 Blood Pressure 122/68 124/65 Pulse Oximetry 92 L 91 L 12/22/17 01:00 12/22/17 01:30 12/22/17 02:00 Temperature Pulse Rate 96 H 93 H 85 Respiratory Rate 20 14 0 L Blood Pressure 144/68 H 123/62 106/60 Pulse Oximetry 94 L 95 94 L 12/22/17 02:30 12/22/17 03:00 12/22/17 03:30 Temperature Pulse Rate 88 97 H 104 H Respiratory Rate 0 L 18 22 Blood Pressure 118/72 124/71 157/78 H Pulse Oximetry 94 L 93 L 91 L 12/22/17 04:00 12/22/17 04:01 12/22/17 04:30 Temperature Pulse Rate 92 H 93 H Respiratory Rate 20 17 Blood Pressure 140/66 142/72 H Pulse Oximetry 93 L 93 L 93 L 12/22/17 05:00 12/22/17 05:30 12/22/17 05:34 Temperature Pulse Rate 89 93 H Respiratory Rate 17 25 H 18 Blood Pressure 128/71 134/72 Pulse Oximetry 94 L 93 L 12/22/17 06:00 12/22/17 06:30 12/22/17 07:49 Temperature Pulse Rate 86 84 Respiratory Rate 22 19 Blood Pressure 128/68 125/63 Pulse Oximetry 93 L 95 12/22/17 08:00 12/22/17 10:00 12/22/17 12:00 Temperature Pulse Rate 90 105 H 106 H Respiratory Rate 14 Blood Pressure Pulse Oximetry Intake & Output 12/21/17 12/22/17 12/22/17 18:59 06:59 18:59 Intake Total 100 / 100 1023 / 1023 100 / 100 Output Total 800 / 800 550 / 550 Balance -700 / -700 473 / 473 100 / 100 Weight 81 kg Intake: IV 100 / 100 300 / 300 100 / 100 Zosyn 4.5 GM Premix 4.5 gm In 100 / 100 300 / 300 100 ml @ 200 mls/hr IV.SIG Q6H HEATHER Rx#:[id number] KCl 20 mEq Premix Inj 20 meq In 100 / 100 100 ml @ 50 mls/hr IV.SIG Q2H PRN Rx#:[id number] Tube Feeding 323 / 323 Water Bolus Amount 400 / 400 Output: Urine Amount (Catheter) 800 / 800 550 / 550 Indwelling Urethral Catheter 800 / 800 550 / 550 Other: Date of Last Bowel Movement 12/20/17 12/20/17 12/20/17 Result Diagrams: 12/22/17 02:40 12/22/17 02:40 Other Results: Microbiology 12/18/17 05:14 Blood - Peripheral Aerobic Blood Culture - Preliminary No growth in 4 days 12/18/17 05:14 Blood - Peripheral Anaerobic Blood Culture - Final QNS - See aerobic report. 12/18/17 05:05 Blood - Peripheral Aerobic Blood Culture - Preliminary No growth in 4 days 12/18/17 05:05 Blood - Peripheral Anaerobic Blood Culture - Preliminary No growth in 4 days 12/11/17 22:55 Blood - Peripheral Aerobic Blood Culture - Final No growth in 5 days 12/11/17 22:55 Blood - Peripheral Anaerobic Blood Culture - Final Corynebacterium not JK 12/11/17 23:00 Blood - Peripheral Aerobic Blood Culture - Final Corynebacterium not JK 12/11/17 23:00 Blood - Peripheral Anaerobic Blood Culture - Final No growth in 5 days 12/11/17 Unknown Sputum - Endotracheal Gram Stain - Final 12/11/17 Unknown Sputum - Endotracheal Sputum Culture - Final Pseudomonas aeruginosa Escherichia coli Beta Strep not group A 12/11/17 23:00 Catheterized Urine Urine Culture - Final No growth in 48 hours Imaging: Chest X-Ray 12/11/17 22:21 CONCLUSION: 1. Underinflation with perihilar interstitial prominence which could be related to the underinflation or could represent pulmonary edema. No airspace consolidation is identified. 2. Endotracheal tube tip measures 2.7 cm from the rosette. Cervical Spine CT 12/12/17 00:00 CONCLUSION: No acute cervical spine abnormality is identified. Head CT 12/12/17 00:00 CONCLUSION: No acute intracranial abnormality is identified. . Head CTA 12/12/17 00:00 CONCLUSION: 1. Negative CTA Head. Neck CTA 12/12/17 00:00 CONCLUSION: 1. Atelectatic calcifications and areas of ulceration involving the origin of the right internal carotid artery with approximate 70-80% stenosis right at the takeoff of the right ICA prior to the start of the patient's internal coronary stent. Head CT 12/12/17 12:29 CONCLUSION: 1. Subtle areas of low attenuation are now seen in the right frontal and occipital regions of concern for areas of evolving infarction. There is no hemorrhage or mass effect. . Chest X-Ray 12/13/17 06:00 CONCLUSION: Mildly increased perihilar interstitial and airspace opacities. Although nonspecific the appearance could be related to pulmonary edema in the appropriate clinical setting. Chest X-Ray 12/17/17 11:50 CONCLUSION: Interval extubation with improved lung exam. Chest X-Ray 12/20/17 00:00 CONCLUSION: Continued prominence of the right [place] with continued infiltrate predominantly within the right lung. Changes are stable compared to previous. At some point, CT imaging would be of benefit to exclude right hilar mass if this has not already been performed. Chest CTA 12/21/17 00:00 CONCLUSION: 1. Apparent right subclavian artery. 2. Mildly enlarged subcarinal and right hilar lymph nodes. adenopathy. 3. Scattered pulmonary infiltrates including right lower lobe consolidation with air bronchogram formation. 4. Atherosclerosis. 5. No evidence for pulmonary embolism. Objective Remarks: GENERAL: Elderly male lying in bed, on nasal cannula SKIN: Warm and dry HEENT: NCAT, PERRL NECK: Trachea midline. Scarring from prior neck dissection CARDIOVASCULAR: Regular rate and rhythm. S1, S2 no S4. RESPIRATORY: On nasal cannula, good air entry bilaterally, scattered rhonchi more on the right, no wheezing. GASTROINTESTINAL: Soft, non-tender, non-distended. PEG tube present with some surrounding erythema but no bleeding. MUSCULOSKELETAL: No peripheral edema NEUROLOGICAL: Drowsy, arousable, disoriented, on nasal cannula moving all extremities Assessment and Plan - Assessment and Plan Plan: Neuro/Psych: Acute encephalopathy- resolved Cerebrovascular accident Chronic benzodiazepine use with clonazepam 1 mg 3 times daily Chronic opioid use with fentanyl patches 25 mcg every 72 hours/found with 3 fentanyl patches on him Depression disorder NOS Fentanyl patch 25 mcg every 3 days home dose. Fentanyl 50 adam grams IV every 4 hours as needed breakthrough pain Dexmedetomidine drip ordered overnight s/p right frontal and occipital CVA, unable to do MRI brain secondary to retained metal in eye according to . * Has bilateral internal carotid artery stents, right carotid stent has ulcerated plaque with 80% stenosis. Per vascular consult, may need additional stent inside of original one in order to cover the ulceration and relieve the stenosis. Will need a carotid angio first for pre-op planning. * ASA, 325 mg daily and clopidogrel 75 75 mg daily on hold due to possible GI bleed CV: Elevated troponin-- resolved Essential hypertension- chronic Coronary artery disease- chronic Bilateral carotid artery stents- chronic Troponin peaked at 0.39, no longer trending Due to possible GI bleed holding y full-dose aspirin 325 mg daily and clopidogrel 75 mg daily Continue amlodipine 10 mg daily/home medication for hypertension 2D echo showed EF 60-65%, moderate pulmonary HTN (PA pressure 32 mmHg), moderate AR, trace TR Resp: Acute respiratory failure-- recurrent- resolving. Acute COPD exacerbation Healthcare associated Aspiration pneumonia Extubated on 12/14, transferred back to [facility] 12/17 for bipap now back to BiPAP prn on 12/20 continue 5 day course of steroids for presumed COPD exacerbation continue full 10 day course of piperacillin/tazobactam for HCAP aspiration pneumonia. continue serial nebs PT consult OOB aggressive pulmonary toilet. GI: Chronic dysphagia requring PEG tube nutrition Hypoalbuminemia We will hold tube feeds secondary to possible GI bleed hold for residual >300 cc Pantoprazole 40 mg IV twice daily for GI prophylaxis Docusate sodium/senna 1 tablet twice daily for bowel regimen : d/c mccray catheter. Endo: SSI with Accu-Cheks every 6 hours to maintain euglycemia Renal: Monitor urine output HEME: Leukocytosis Normocytic anemia Monitor CBC daily. Follow trends No indication for transfusion of blood products at this time ID: Day 10 of piperacillin/tazobactam for pseudomonal/ E coli pneumonia, will continue for now as patient's respiratory status acutely worsened yesterday. Consult ID for worsening pneumonia/recurrent aspiration. Pertinent cultures 12/11 -sputum-Pseudomonas, E. coli, beta strep not a 12/11 blood cultures 2 Corynebacterium not J/K-repeat blood cultures 12/18 no growth MSK: PT evaluate and treat FEN: Hypernatremia Hypokalemia Replace electrolytes as clinically indicated per ICU electrolyte protocol We will start D5 one half normal saline at 100 cc an hour while n.p.o. Access -Peripheral IV Prophylaxis -GI -pantoprazole -DVT -SCD/enoxaparin on hold due to possible GI bleed Level 2 follow-up. Discussed with at bedside.
[2017-12-22] MEDS: KCL 20 mEq/D5W/NaCl 0.45% Inj 1,000 ML IV.CONT SCH (15:47)
[2017-12-22] MEDS: Pantoprazole Inj 40 MG Vial IV.PUSH SCH ×2 (15:53→20:30)
[2017-12-22 15:55] LABS: Hematocrit 27.4 % (39.0-51.0); Hemoglobin 9.1 gm/dL (13.0-17.0)
[2017-12-22 16:06] LABS: Activated Partial Thrombo Time 22.9 sec (24.3-30.1); INR 1.1 Ratio; Prothrombin Time 10.8 sec (9.8-11.6)
--- NOTE | 2017-12-22 16:49 | P.CONGI ---
History of Present Illness Consult date: 12/22/17 Consult reason: Anemia/melena Chief complaint: respitory failure, aspiration, h/o head/-neck History of Present Illness: This is a 67 yo M with PMH significant for head and neck cancer who was found unresponsive and brought to the ER on Dec 11. He was intubated due to respiratory dress and possible aspiration and has since been extubated but remains on 6 L o2 via [place]. Our service has been consulted to evaluate pt for reports of one episode of melena earlier today and anemia. Pt reportedly had been taking about 6 tablets of ASA daily prior to arrival because he states that and his Fentanyl patches are the only thing that helps with his pain. According to RN pt had one loose, black tarry BM earlier today, it was tested and came back Hemoccult positive. At present, pt is resting in bed, denies any nausea, vomiting, abdominal pain. 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 He currently receives everything through his PEG, according to RN he has been tolerating his tube feeding. Pt does thing that he has had previous EGD but believe it was in the 80s. Of note , he is on Plavix and ASA, states carotid stents. <Lindsey Santa - Last Filed: 12/22/17 16:43> Review of Systems Gastrointestinal: Reports black, tarry stools, Reports loose stools, Denies abdominal pain, Denies nausea, Denies vomiting <Lindsey Santa - Last Filed: 12/22/17 16:43> [facility] - History History Provided By: Medical Record - Medical History Medical History: Medical History (Last Reviewed 12/19/17 @ 14:42 by Olga Zhu) CAD (coronary artery disease) Depression History of common carotid artery stent placement History of gastrostomy tube placement Hypertension Throat cancer Tongue cancer - Surgical History Surgical History: Surgical History (Last Reviewed 12/19/17 @ 14:42 by Olga Zhu) History of appendectomy History of radical neck dissection Hx of tonsillectomy S/P partial glossectomy Status post dissection of neck - Family History Family History: Family History (Last Updated 12/12/17 @ 10:01 by Virgil Moreno) Father Diabetes Stroke Mother Thyroid cancer Leukemia - Tobacco History Second Hand Smoke Exposure: Yes Tobacco Use In Past 30 Days: Yes Smoking Status: Current every day smoker Tobacco Type: Cigarettes - Alcohol History How Often Do You Have a Drink Containing Alcohol: Monthly or less - Substance Use History Substance History: No History of Abuse - Travel History Recent Travel in the [place] Within the Last 8 Weeks: No Recent Travel Out of the Country Within the Last 8 Weeks: No - Immunization History Tetanus Immunization: >5 Years Hx Influenza Vaccine This Season: Yes <Lindsey Santa - Last Filed: 12/22/17 16:43> - Medical History Medical History: Medical History (Last Reviewed 12/19/17 @ 14:42 by Olga Zhu) CAD (coronary artery disease) Depression History of common carotid artery stent placement History of gastrostomy tube placement Hypertension Throat cancer Tongue cancer - Surgical History Surgical History: Surgical History (Last Reviewed 12/19/17 @ 14:42 by Olga Zhu) History of appendectomy History of radical neck dissection Hx of tonsillectomy S/P partial glossectomy Status post dissection of neck - Family History Family History: Family History (Last Updated 12/12/17 @ 10:01 by Virgil Moreno) Father Diabetes Stroke Mother Thyroid cancer Leukemia <Jaja Wong - Last Filed: 12/23/17 10:44> Medications and Allergies Active Medications: Active Medications Acetaminophen (Tylenol) 650 mg PO Q6H PRN PRN Reason: FEVER >101F Last Admin: 12/18/17 04:15 Dose: 650 mg Hydrocodone Bitart/Acetaminophen (Cutler 5/325) 1 tab G-TUBE Q4H PRN PRN Reason: pain 3-10 Last Admin: 12/22/17 08:04 Dose: 1 tab Al Hydroxide/Mg Hydroxide (Milk Of Magncas Liq) 30 ml PO Q12H PRN PRN Reason: Mild Constipation Last Admin: 12/15/17 15:35 Dose: 30 ml Albuterol (Albuterol Neb (Prn)) 2.5 mg NEB Q2HR NEB PRN PRN Reason: DYSPNEA Last Admin: 12/21/17 20:07 Dose: 2.5 mg Amlodipine Besylate (Norvasc) 10 mg PO DAILY BRAIN Last Admin: 12/22/17 08:03 Dose: 10 mg Aspirin (Aspirin) 325 mg PO DAILY BRAIN Last Admin: 12/22/17 08:03 Dose: 325 mg Bisacodyl (Dulcolax Supp) 10 mg RECTAL DAILY PRN PRN Reason: SEVERE CONSITIPATION Chlorhexidine Gluconate (Peridex 0.12% Oral Kit) 15 ml OROPHARYNG BID@0800, 2000 [facility] Last Admin: 12/22/17 08:04 Dose: 15 ml Clonazepam (Klonopin) 0.25 mg PO TID [facility] Last Admin: 12/22/17 15:48 Dose: 0.25 mg Clonidine HCl (Catapres) 0.1 mg PO Q6H PRN PRN Reason: Sbp>165, Dbp>90, Hr>65 Last Admin: 12/20/17 22:28 Dose: 0.1 mg Clopidogrel Bisulfate (Plavix) 75 mg PO DAILY [facility] Last Admin: 12/22/17 08:03 Dose: 75 mg Dextrose (D50w Vial) 50 ml IV.PUSH UNSCH PRN PRN Reason: PER HYPOGLYCEMIA PROTOCOL Enoxaparin Sodium (Lovenox Inj) 40 mg SQ Q24H [facility] Last Admin: 12/21/17 23:58 Dose: 40 mg Fentanyl (Duragesic 25 Mcg Patch.72hr) 1 patch T-DERMAL Q3D [facility] Last Admin: 12/20/17 13:02 Dose: Not Given Fentanyl Citrate (Fentanyl Inj) 50 mcg IV.PUSH Q4H PRN PRN Reason: BREAKTHROUGH PAIN Last Admin: 12/21/17 23:54 Dose: 50 mcg Glucagon (Glucagon Inj) 1 mg OTHER PRN PRN PRN Reason: for Hypoglycemia Protocol Piperacillin/Tazobactam/Dextrose (Zosyn 4.5 Gm Premix) 4.5 gm in 100 mls @ 200 mls/hr IV.SIG Q6H [facility] Last Admin: 12/22/17 11:09 Dose: 100 mls/hr Magnesium Sulfate Inj 4 gm/ (Sodium Chloride) 100 mls @ 50 mls/hr IV.SIG UNSCH PRN PRN Reason: For Magnesium 0.9 - 1.1 mg/dL Magnesium Sulfate Inj 2 gm/ (Sodium Chloride) 100 mls @ 50 mls/hr IV.SIG UNSCH PRN PRN Reason: For Magnesium 1.2 - 1.6 mg/dL Potassium Chloride (Kcl 40 Meq Premix Inj) 40 meq in 100 mls @ 25 mls/hr IV.SIG Q2H PRN PRN Reason: For Potassium 2.8 - 3.2 mEq/L Potassium Chloride (Kcl 20 Meq Premix Inj) 20 meq in 100 mls @ 50 mls/hr IV.SIG Q2H PRN PRN Reason: For Potassium 3.3 - 3.5 mEq/L Potassium Chloride (Kcl 40 Meq Premix Inj) 40 meq in 100 mls @ 25 mls/hr IV.SIG UNSCH PRN PRN Reason: For Potassium 3.3 - 3.5 mEq/L Potassium Chloride (Kcl 20 Meq Premix Inj) 20 meq in 100 mls @ 50 mls/hr IV.SIG Q2H PRN PRN Reason: For Potassium 2.8 - 3.2 mEq/L Last Admin: 12/22/17 11:12 Dose: 50 mls/hr Potassium Phosphate 30 mmol/ (Sodium Chloride) 260 mls @ 42 mls/hr IV.SIG UNSCH PRN PRN Reason: SEE LABEL COMMENTS Last Infusion: 12/20/17 19:10 Dose: Infused Sodium Phosphate 30 mmol/ (Sodium Chloride) 260 mls @ 42 mls/hr IV.SIG UNSCH PRN PRN Reason: For Phosphorus < 2.5 mg/dL Dexmedetomidine HCl 1,000 mcg/ (Sodium Chloride) 250 mls @ 3.7 mls/hr IV.CONT TITRATE PRN; Protocol PRN Reason: Per Protocol Last Titration: 12/21/17 06:00 Dose: 0 mcg/kg/hr, 0 mls/hr Potassium Chloride/Dextrose/Sod Cl (D5w/1/2ns + Kcl 20 Meq Inj) 1,000 mls @ 100 mls/hr IV.CONT .Q10H BRAIN Last Admin: 12/22/17 15:47 Dose: 100 mls/hr Insulin Aspart (Novolog Insulin Correctional Sugar Inj) 0 unit SQ Q6HR BRAIN; Protocol Last Admin: 12/22/17 11:08 Dose: Not Given Labetalol HCl (Trandate Inj) 10 mg IV.PUSH Q1H PRN PRN Reason: Sbp>165, Dbp>90, Hr>65 Last Admin: 12/20/17 04:26 Dose: 10 mg Lactulose (Lactulose Liq) 30 ml PO DAILY PRN PRN Reason: SEVERE CONSITIPATION Magnesium Oxide (Mag-Ox) 800 mg PO UNSCH PRN PRN Reason: For Magnesium 1.2 - 1.6 mg/dL Melatonin (Melatonin) 5 mg PO HS PRN PRN Reason: INSOMNIA Last Admin: 12/21/17 20:10 Dose: 5 mg Metoclopramide HCl (Reglan Inj) 5 mg IV.PUSH Q6HR [facility]; Protocol Last Admin: 12/22/17 11:08 Dose: 5 mg Mirtazapine (Remeron) 30 mg PO DAILY [facility] Last Admin: 12/21/17 10:30 Dose: 30 mg Mupirocin (Bactroban 2% Nasal Oint) 1 applicatio EACH NARE BID [facility] Ondansetron HCl (Zofran Inj) 4 mg IV.PUSH Q6H PRN PRN Reason: NAUSEA OR VOMITING Pantoprazole Sodium (Protonix Inj) 40 mg IV.PUSH Q12HR [facility] Last Admin: 12/22/17 15:53 Dose: 40 mg Patch Removal (Remove Old Patch) 1 each T-DERMAL Q3D [facility] Last Admin: 12/20/17 13:03 Dose: 1 each Potassium Bicarb/Potassium Chloride (K-Lyte Cl Eff) 50 meq PO UNSCH PRN PRN Reason: For Potassium 3.3 - 3.5 mEq/L Last Admin: 12/19/17 12:00 Dose: 50 meq Potassium Phosphate (K-Phos Original) 2,000 mg PO Q4H PRN PRN Reason: Phosphorus Less Than 2.5 mg/dL Potassium Phosphate (K-Phos Original) 2,000 mg PO UNSCH PRN PRN Reason: SEE LABEL COMMENTS Quetiapine Fumarate (Seroquel) 100 mg PO BID PRN PRN Reason: AGITATION Last Admin: 12/22/17 01:03 Dose: 100 mg Senna/Docusate Sodium (Ami-Colace) 1 tab PO BID [facility] Last Admin: 12/22/17 08:03 Dose: 1 tab Sennosides (Senokot) 17.2 mg PO Q12H PRN PRN Reason: Moderate Constipation Sodium Chloride (Ns Flush) 2 ml IV.FLUSH BID [facility] Last Admin: 12/22/17 08:04 Dose: 2 ml Sodium Chloride (Ns Flush) 2 ml IV.FLUSH PRN PRN PRN Reason: FLUSH AFTER USING IV ACCESS Last Admin: 12/20/17 08:29 Dose: 2 ml <Lindsey Santa - Last Filed: 12/22/17 16:43> Active Medications: Active Medications Acetaminophen (Tylenol) 650 mg PO Q6H PRN PRN Reason: FEVER >101F Last Admin: 12/18/17 04:15 Dose: 650 mg Hydrocodone Bitart/Acetaminophen (Cutler 5/325) 1 tab G-TUBE Q4H PRN PRN Reason: pain 3-10 Last Admin: 12/23/17 09:10 Dose: 1 tab Al Hydroxide/Mg Hydroxide (Milk Of Zia Dai) 30 ml PO Q12H PRN PRN Reason: Mild Constipation Last Admin: 12/15/17 15:35 Dose: 30 ml Albuterol (Albuterol Neb (Prn)) 2.5 mg NEB Q2HR NEB PRN PRN Reason: DYSPNEA Last Admin: 12/22/17 21:08 Dose: 2.5 mg Albuterol (Duoneb Neb (Brain)) 1 ampul NEB Q6HR NEB BRAIN Amlodipine Besylate (Norvasc) 10 mg PO DAILY [facility] Last Admin: 12/23/17 09:11 Dose: 10 mg Aspirin (Aspirin) 325 mg PO DAILY [facility] Last Admin: 12/22/17 08:03 Dose: 325 mg Bisacodyl (Dulcolax Supp) 10 mg RECTAL DAILY PRN PRN Reason: SEVERE CONSITIPATION Chlorhexidine Gluconate (Peridex 0.12% Oral Kit) 15 ml OROPHARYNG BID@0800, 2000 [facility] Last Admin: 12/23/17 09:10 Dose: 15 ml Clonazepam (Klonopin) 0.25 mg PO TID [facility] Last Admin: 12/23/17 09:11 Dose: 0.25 mg Clonidine HCl (Catapres) 0.1 mg PO Q6H PRN PRN Reason: Sbp>165, Dbp>90, Hr>65 Last Admin: 12/20/17 22:28 Dose: 0.1 mg Clopidogrel Bisulfate (Plavix) 75 mg PO DAILY [facility] Last Admin: 12/22/17 08:03 Dose: 75 mg Dextrose (D50w Vial) 50 ml IV.PUSH UNSCH PRN PRN Reason: PER HYPOGLYCEMIA PROTOCOL Enoxaparin Sodium (Lovenox Inj) 40 mg SQ Q24H [facility] Last Admin: 12/21/17 23:58 Dose: 40 mg Fentanyl (Duragesic 25 Mcg Patch.72hr) 1 patch T-DERMAL Q3D [facility] Last Admin: 12/20/17 13:02 Dose: Not Given Fentanyl Citrate (Fentanyl Inj) 50 mcg IV.PUSH Q4H PRN PRN Reason: BREAKTHROUGH PAIN Last Admin: 12/23/17 03:37 Dose: 50 mcg Glucagon (Glucagon Inj) 1 mg OTHER PRN PRN PRN Reason: for Hypoglycemia Protocol Piperacillin/Tazobactam/Dextrose (Zosyn 4.5 Gm Premix) 4.5 gm in 100 mls @ 200 mls/hr IV.SIG Q6H [facility] Last Infusion: 12/23/17 09:58 Dose: Infused Magnesium Sulfate Inj 4 gm/ (Sodium Chloride) 100 mls @ 50 mls/hr IV.SIG UNSCH PRN PRN Reason: For Magnesium 0.9 - 1.1 mg/dL Magnesium Sulfate Inj 2 gm/ (Sodium Chloride) 100 mls @ 50 mls/hr IV.SIG UNSCH PRN PRN Reason: For Magnesium 1.2 - 1.6 mg/dL Potassium Chloride (Kcl 40 Meq Premix Inj) 40 meq in 100 mls @ 25 mls/hr IV.SIG Q2H PRN PRN Reason: For Potassium 2.8 - 3.2 mEq/L Potassium Chloride (Kcl 20 Meq Premix Inj) 20 meq in 100 mls @ 50 mls/hr IV.SIG Q2H PRN PRN Reason: For Potassium 3.3 - 3.5 mEq/L Potassium Chloride (Kcl 40 Meq Premix Inj) 40 meq in 100 mls @ 25 mls/hr IV.SIG UNSCH PRN PRN Reason: For Potassium 3.3 - 3.5 mEq/L Potassium Chloride (Kcl 20 Meq Premix Inj) 20 meq in 100 mls @ 50 mls/hr IV.SIG Q2H PRN PRN Reason: For Potassium 2.8 - 3.2 mEq/L Last Infusion: 12/22/17 19:36 Dose: Infused Potassium Phosphate 30 mmol/ (Sodium Chloride) 260 mls @ 42 mls/hr IV.SIG UNSCH PRN PRN Reason: SEE LABEL COMMENTS Last Infusion: 12/20/17 19:10 Dose: Infused Sodium Phosphate 30 mmol/ (Sodium Chloride) 260 mls @ 42 mls/hr IV.SIG UNSCH PRN PRN Reason: For Phosphorus < 2.5 mg/dL Dexmedetomidine HCl 1,000 mcg/ (Sodium Chloride) 250 mls @ 3.7 mls/hr IV.CONT TITRATE PRN; Protocol PRN Reason: Per Protocol Last Titration: 12/21/17 06:00 Dose: 0 mcg/kg/hr, 0 mls/hr Potassium Chloride/Dextrose/Sod Cl (D5w/1/2ns + Kcl 20 Meq Inj) 1,000 mls @ 100 mls/hr IV.CONT .Q10H BRAIN Last Admin: 12/23/17 00:09 Dose: 100 mls/hr Potassium Chloride (Kcl 10 Meq Premix Inj) 10 meq in 100 mls @ 100 mls/hr IV.SIG Q1H BRAIN Stop: 12/23/17 12:59 Last Admin: 12/23/17 09:59 Dose: Not Given Potassium Phosphate 30 mmol/ (Sodium Chloride) 260 mls @ 43.333 mls/hr IV.SIG ONCE ONE Stop: 12/23/17 15:44 Insulin Aspart (Novolog Insulin Correctional Sugar Inj) 0 unit SQ Q6HR [facility]; Protocol Last Admin: 12/23/17 06:51 Dose: Not Given Labetalol HCl (Trandate Inj) 10 mg IV.PUSH Q1H PRN PRN Reason: Sbp>165, Dbp>90, Hr>65 Last Admin: 12/20/17 04:26 Dose: 10 mg Lactulose (Lactulose Liq) 30 ml PO DAILY PRN PRN Reason: SEVERE CONSITIPATION Magnesium Oxide (Mag-Ox) 800 mg PO UNSCH PRN PRN Reason: For Magnesium 1.2 - 1.6 mg/dL Melatonin (Melatonin) 5 mg PO HS PRN PRN Reason: INSOMNIA Last Admin: 12/21/17 20:10 Dose: 5 mg Metoclopramide HCl (Reglan Inj) 5 mg IV.PUSH Q6HR [facility]; Protocol Last Admin: 12/23/17 06:34 Dose: 5 mg Mirtazapine (Remeron) 30 mg PO HS [facility] Last Admin: 12/22/17 20:30 Dose: 30 mg Mupirocin (Bactroban 2% Nasal Oint) 1 applicatio EACH NARE BID [facility] Last Admin: 12/23/17 09:10 Dose: 1 applicatio Ondansetron HCl (Zofran Inj) 4 mg IV.PUSH Q6H PRN PRN Reason: NAUSEA OR VOMITING Pantoprazole Sodium (Protonix Inj) 40 mg IV.PUSH Q12HR [facility] Last Admin: 12/23/17 09:09 Dose: 40 mg Patch Removal (Remove Old Patch) 1 each T-DERMAL Q3D [facility] Last Admin: 12/20/17 13:03 Dose: 1 each Potassium Bicarb/Potassium Chloride (K-Lyte Cl Eff) 50 meq PO UNSCH PRN PRN Reason: For Potassium 3.3 - 3.5 mEq/L Last Admin: 12/19/17 12:00 Dose: 50 meq Potassium Phosphate (K-Phos Original) 2,000 mg PO Q4H PRN PRN Reason: Phosphorus Less Than 2.5 mg/dL Last Admin: 12/23/17 06:35 Dose: 2,000 mg Potassium Phosphate (K-Phos Original) 2,000 mg PO UNSCH PRN PRN Reason: SEE LABEL COMMENTS Quetiapine Fumarate (Seroquel) 100 mg PO BID PRN PRN Reason: AGITATION Last Admin: 12/22/17 01:03 Dose: 100 mg Senna/Docusate Sodium (Ami-Colace) 1 tab PO BID [facility] Last Admin: 12/23/17 08:31 Dose: Not Given Sennosides (Senokot) 17.2 mg PO Q12H PRN PRN Reason: Moderate Constipation Sodium Chloride (Ns Flush) 2 ml IV.FLUSH BID [facility] Last Admin: 12/23/17 09:11 Dose: 2 ml Sodium Chloride (Ns Flush) 2 ml IV.FLUSH PRN PRN PRN Reason: FLUSH AFTER USING IV ACCESS Last Admin: 12/20/17 08:29 Dose: 2 ml <Jaja Wong - Last Filed: 12/23/17 10:44> Allergies Allergy/AdvReac Type Severity Reaction Status Date / Time morphine Allergy Intermediate Confusion Verified 03/04/17 21:32 HALLICINATES hydromorphone AdvReac Intermediate Confusion Verified 12/11/17 22:23 Home Medications Medication Instructions Recorded Confirmed Type amlodipine 10 mg PO DAILY 12/11/17 12/11/17 History clonazepam 1 mg PO TID 12/11/17 12/11/17 History fentanyl 50 mcg INTRADERMAL 2XWEEK 12/11/17 12/11/17 History mirtazapine 30 mg PO DAILY 12/11/17 12/11/17 History Exam Vital signs: Vital Signs 12/21/17 16:53 12/21/17 17:00 12/21/17 17:30 Temperature Pulse Rate 91 H 98 H 93 H Respiratory Rate 0 L 21 10 L Blood Pressure 144/70 H 149/73 H 142/70 H Pulse Oximetry 94 L 96 92 L 12/21/17 18:00 12/21/17 18:30 12/21/17 19:00 Temperature Pulse Rate 95 H 98 H 98 H Respiratory Rate 17 16 19 Blood Pressure 137/65 139/67 130/63 Pulse Oximetry 95 89 L 100 12/21/17 19:30 12/21/17 20:00 12/21/17 20:05 Temperature 97.6 F Pulse Rate 94 H 95 H Respiratory Rate 15 18 Blood Pressure 139/72 142/79 H Pulse Oximetry 94 L 100 99 12/21/17 20:07 12/21/17 20:30 12/21/17 20:55 Temperature Pulse Rate 96 H 93 H Respiratory Rate 18 17 Blood Pressure 127/72 Pulse Oximetry 98 99 12/21/17 21:00 12/21/17 21:30 12/21/17 22:00 Temperature Pulse Rate 96 H 92 H 93 H Respiratory Rate 13 6 L 13 Blood Pressure 136/69 132/75 133/72 Pulse Oximetry 96 99 98 12/21/17 22:30 12/21/17 23:00 12/21/17 23:30 Temperature Pulse Rate 91 H 88 89 Respiratory Rate 14 13 12 Blood Pressure 133/73 140/76 136/64 Pulse Oximetry 98 99 98 12/21/17 23:50 12/22/17 00:00 12/22/17 00:30 Temperature Pulse Rate 90 97 H Respiratory Rate 18 12 Blood Pressure 122/68 124/65 Pulse Oximetry 96 92 L 91 L 12/22/17 00:44 12/22/17 01:00 12/22/17 01:30 Temperature Pulse Rate 96 H 93 H Respiratory Rate 18 20 14 Blood Pressure 144/68 H 123/62 Pulse Oximetry 94 L 95 12/22/17 02:00 12/22/17 02:30 12/22/17 03:00 Temperature Pulse Rate 85 88 97 H Respiratory Rate 0 L 0 L 18 Blood Pressure 106/60 118/72 124/71 Pulse Oximetry 94 L 94 L 93 L 12/22/17 03:30 12/22/17 04:00 12/22/17 04:01 Temperature Pulse Rate 104 H 92 H Respiratory Rate 22 20 Blood Pressure 157/78 H 140/66 Pulse Oximetry 91 L 93 L 93 L 12/22/17 04:30 12/22/17 05:00 12/22/17 05:30 Temperature Pulse Rate 93 H 89 93 H Respiratory Rate 17 17 25 H Blood Pressure 142/72 H 128/71 134/72 Pulse Oximetry 93 L 94 L 93 L 12/22/17 05:34 12/22/17 06:00 12/22/17 06:30 Temperature Pulse Rate 86 84 Respiratory Rate 18 22 19 Blood Pressure 128/68 125/63 Pulse Oximetry 93 L 12/22/17 07:49 12/22/17 08:00 12/22/17 10:00 Temperature 99.8 F H Pulse Rate 90 105 H Respiratory Rate 25 H Blood Pressure 137/74 Pulse Oximetry 95 95 12/22/17 12:00 12/22/17 13:51 12/22/17 14:00 Temperature 97.5 F L Pulse Rate 106 H 106 H Respiratory Rate 26 H Blood Pressure 125/71 Pulse Oximetry 90 L 90 L 12/22/17 16:00 Temperature 98.1 F Pulse Rate 113 H Respiratory Rate 26 H Blood Pressure 135/80 Pulse Oximetry 89 L Intake & Output 12/21/17 12/22/17 12/22/17 18:59 06:59 18:59 Intake Total 100 / 100 1023 / 1023 100 / 100 Output Total 800 / 800 550 / 550 Balance -700 / -700 473 / 473 100 / 100 Weight 81 kg Intake: IV 100 / 100 300 / 300 100 / 100 Zosyn 4.5 GM Premix 4.5 gm In 100 / 100 300 / 300 100 ml @ 200 mls/hr IV.SIG Q6H BRAIN Rx#:[id number] KCl 20 mEq Premix Inj 20 meq In 100 / 100 100 ml @ 50 mls/hr IV.SIG Q2H PRN Rx#:[id number] Tube Feeding 323 / 323 Water Bolus Amount 400 / 400 Output: Urine Amount (Catheter) 800 / 800 550 / 550 Indwelling Urethral Catheter 800 / 800 550 / 550 Other: Date of Last Bowel Movement 12/20/17 12/20/17 12/22/17 - Constitutional no acute distress - Routine HEENT Exam Head: Present: normocephalic, atraumatic - Routine Respiratory Exam Absent: accessory muscle use - Routine Abdominal Exam Present: soft, normoactive bowel sounds. Absent: tenderness, distended Comments: PEG clamped with minimal amount of drainage around PEG site - Routine Skin Exam Present: dry, warm - Routine Neurological Exam Present: alert, oriented X3 <Lindsey Santa - Last Filed: 12/22/17 16:43> Vital signs: Vital Signs 12/22/17 12:00 12/22/17 12:30 12/22/17 13:00 Temperature 97.5 F L Pulse Rate 106 H 109 H 107 H Respiratory Rate 26 H 28 H 29 H Blood Pressure 125/71 132/75 126/70 Pulse Oximetry 90 L 87 L 87 L 12/22/17 13:30 12/22/17 13:51 12/22/17 14:00 Temperature Pulse Rate 106 H 106 H Respiratory Rate 25 H 26 H Blood Pressure 141/67 H 152/73 H Pulse Oximetry 90 L 90 L 92 L 12/22/17 14:30 12/22/17 15:00 12/22/17 15:30 Temperature Pulse Rate 106 H 110 H 107 H Respiratory Rate 25 H 32 H 40 H Blood Pressure 135/71 133/75 145/70 H Pulse Oximetry 90 L 87 L 87 L 12/22/17 16:00 12/22/17 16:30 12/22/17 17:00 Temperature 98.1 F Pulse Rate 113 H 109 H 115 H Respiratory Rate 36 H 31 H 22 Blood Pressure 135/80 130/70 154/82 H Pulse Oximetry 89 L 91 L 89 L 12/22/17 17:30 12/22/17 18:00 12/22/17 18:30 Temperature Pulse Rate 115 H 115 H 109 H Respiratory Rate 36 H 26 H 31 H Blood Pressure 119/67 151/76 H 142/71 H Pulse Oximetry 89 L 90 L 87 L 12/22/17 19:00 12/22/17 19:30 12/22/17 19:45 Temperature Pulse Rate 110 H 108 H Respiratory Rate 32 H 33 H Blood Pressure 145/73 H 133/77 Pulse Oximetry 87 L 92 L 90 L 12/22/17 20:00 12/22/17 20:30 12/22/17 21:00 Temperature 98.2 F Pulse Rate 113 H 115 H 109 H Respiratory Rate 38 H 42 H 32 H Blood Pressure 159/85 H 171/97 H 160/76 H Pulse Oximetry 91 L 90 L 82 L 12/22/17 21:08 12/22/17 21:11 12/22/17 21:30 Temperature Pulse Rate 104 H 100 H Respiratory Rate 28 H 27 H Blood Pressure 140/73 Pulse Oximetry 90 L 94 L 12/22/17 22:00 12/22/17 22:30 12/22/17 23:00 Temperature Pulse Rate 63 100 H 101 H Respiratory Rate 41 H 30 H 27 H Blood Pressure 167/81 H 160/75 H 153/71 H Pulse Oximetry 94 L 99 92 L 12/22/17 23:30 12/23/17 00:00 12/23/17 00:30 Temperature 97.8 F Pulse Rate 97 H 96 H 90 Respiratory Rate 17 25 H 25 H Blood Pressure 154/74 H 154/72 H 148/70 H Pulse Oximetry 94 L 92 L 93 L 12/23/17 01:10 12/23/17 02:00 12/23/17 04:00 Temperature 98.8 F Pulse Rate 93 H 99 H Respiratory Rate 11 L Blood Pressure 139/72 Pulse Oximetry 92 L 92 L 12/23/17 04:20 12/23/17 06:00 12/23/17 08:00 Temperature 97.7 F Pulse Rate 99 H 90 Respiratory Rate 24 Blood Pressure 158/72 H Pulse Oximetry 95 92 L 12/23/17 08:12 12/23/17 10:00 Temperature Pulse Rate 90 Respiratory Rate Blood Pressure Pulse Oximetry 92 L Intake & Output 12/22/17 12/23/17 12/23/17 18:59 06:59 18:59 Intake Total 433 / 433 1400 / 1400 100 / 100 Output Total 1350 / 1350 Balance -917 / -917 1400 / 1400 100 / 100 Weight 81 kg Intake: IV 200 / 200 1400 / 1400 100 / 100 D5W/1/2NS + KCL 20 mEq Inj 1, 1000 / 1000 000 ML @ 100 mls/hr IV.CONT . Q10H BRAIN Rx#:[id number] Zosyn 4.5 GM Premix 4.5 gm In 100 / 100 200 / 200 100 / 100 100 ml @ 200 mls/hr IV.SIG Q6H BRAIN Rx#:[id number] KCl 20 mEq Premix Inj 20 meq In 100 / 100 100 / 100 100 ml @ 50 mls/hr IV.SIG Q2H PRN Rx#:[id number] Oral 0 / 0 Tube Feeding 153 / 153 0 / 0 Water Bolus Amount 80 / 80 Output: Urine Amount (Catheter) 1350 / 1350 Indwelling Urethral Catheter 1350 / 1350 Other: # Voids 5 Date of Last Bowel Movement 12/22/17 12/22/17 12/22/17 # Bowel Movements 1 <Jaja Wong A - Last Filed: 12/23/17 10:44> Results - Labs CBC & Chem 7: 12/22/17 15:10 12/22/17 02:40 Labs: Laboratory Results - last 24 hr 12/21/17 12/22/17 12/22/17 17:20 00:08 02:40 WBC 11.3 H RBC 2.88 L Hgb 9.6 L Hct 28.7 L MCV 99.8 MCH 33.2 MCHC 33.3 RDW 13.8 Plt Count 400 MPV 9.6 Neut % (Auto) 76.1 H Lymph % (Auto) 16.5 [place] % (Auto) 7.3 Eos % (Auto) 0.0 Baso % (Auto) 0.1 Neut # (Auto) 8.6 H Lymph # (Auto) 1.9 [place] # (Auto) 0.8 Eos # (Auto) 0.0 Baso # (Auto) 0.0 WBC Differential . Differential Comment Auto diff final PT INR APTT Sodium Potassium Chloride Carbon Dioxide Anion Gap BUN Creatinine Estimated GFR POC Glucose 146 H 184 H Random Glucose Calcium Total Bilirubin AST ALT Alkaline Phosphatase Total Protein Albumin Blood Type Blood Type Recheck Antibody Screen 12/22/17 12/22/17 12/22/17 02:40 05:45 11:07 WBC RBC Hgb Hct MCV MCH MCHC RDW Plt Count MPV Neut % (Auto) Lymph % (Auto) [place] % (Auto) Eos % (Auto) Baso % (Auto) Neut # (Auto) Lymph # (Auto) [place] # (Auto) Eos # (Auto) Baso # (Auto) WBC Differential Differential Comment PT INR APTT Sodium 146 H Potassium 3.0 L D Chloride 111 H Carbon Dioxide 24.4 Anion Gap 11 BUN 36 H Creatinine 0.63 Estimated GFR Greater than 89 POC Glucose 136 H 156 H Random Glucose 111 H Calcium 8.1 L Total Bilirubin 0.5 AST 165 H ALT 386 H Alkaline Phosphatase 126 H Total Protein 6.7 D Albumin 2.1 L Blood Type Blood Type Recheck Antibody Screen 12/22/17 12/22/17 12/22/17 15:10 15:10 15:10 WBC RBC Hgb 9.1 L Hct 27.4 L MCV MCH MCHC RDW Plt Count MPV Neut % (Auto) Lymph % (Auto) [place] % (Auto) Eos % (Auto) Baso % (Auto) Neut # (Auto) Lymph # (Auto) [place] # (Auto) Eos # (Auto) Baso # (Auto) WBC Differential Differential Comment PT 10.8 INR 1.1 APTT 22.9 L Sodium Potassium Chloride Carbon Dioxide Anion Gap BUN Creatinine Estimated GFR POC Glucose Random Glucose Calcium Total Bilirubin AST ALT Alkaline Phosphatase Total Protein Albumin Blood Type A Positive Blood Type Recheck Required Antibody Screen Negative - Imaging Impressions Chest CTA 12/21/17 00:00 CONCLUSION: 1. Apparent right subclavian artery. 2. Mildly enlarged subcarinal and right hilar lymph nodes. adenopathy. 3. Scattered pulmonary infiltrates including right lower lobe consolidation with air bronchogram formation. 4. Atherosclerosis. 5. No evidence for pulmonary embolism. <Lindsey Santa - Last Filed: 12/22/17 16:43> - Labs CBC & Chem 7: 12/23/17 03:50 12/23/17 03:50 Labs: Laboratory Results - last 24 hr 12/22/17 12/22/17 12/22/17 11:07 15:10 15:10 WBC RBC Hgb 9.1 L Hct 27.4 L MCV MCH MCHC RDW Plt Count MPV Neut % (Auto) Lymph % (Auto) [place] % (Auto) Eos % (Auto) Baso % (Auto) Neut # (Auto) Lymph # (Auto) [place] # (Auto) Eos # (Auto) Baso # (Auto) WBC Differential Differential Comment PT 10.8 INR 1.1 APTT 22.9 L Sodium Potassium Chloride Carbon Dioxide Anion Gap BUN Creatinine Estimated GFR POC Glucose 156 H Random Glucose Lactic Acid Calcium Phosphorus Magnesium Total Bilirubin AST ALT Alkaline Phosphatase Ammonia Total Protein Albumin TSH Blood Type Blood Type Recheck Antibody Screen 12/22/17 12/22/17 12/22/17 15:10 16:26 16:59 WBC RBC Hgb Hct MCV MCH MCHC RDW Plt Count MPV Neut % (Auto) Lymph % (Auto) [place] % (Auto) Eos % (Auto) Baso % (Auto) Neut # (Auto) Lymph # (Auto) [place] # (Auto) Eos # (Auto) Baso # (Auto) WBC Differential Differential Comment PT INR APTT Sodium Potassium 3.9 D Chloride Carbon Dioxide Anion Gap BUN Creatinine Estimated GFR POC Glucose 132 H Random Glucose Lactic Acid Calcium Phosphorus Magnesium Total Bilirubin AST ALT Alkaline Phosphatase Ammonia Total Protein Albumin TSH Blood Type A Positive Blood Type Recheck Required Antibody Screen Negative 12/22/17 12/23/17 12/23/17 20:41 00:21 03:50 WBC 19.9 H RBC 2.54 L Hgb 8.8 L 8.3 L Hct 25.6 L MCV 101.0 H MCH 32.8 MCHC 32.5 RDW 13.7 Plt Count 543 H D MPV 9.4 Neut % (Auto) 72.2 H Lymph % (Auto) 20.9 [place] % (Auto) 6.3 Eos % (Auto) 0.2 Baso % (Auto) 0.4 Neut # (Auto) 14.4 H Lymph # (Auto) 4.2 [place] # (Auto) 1.3 H Eos # (Auto) 0.0 Baso # (Auto) 0.1 WBC Differential . Differential Comment Auto diff final PT INR APTT Sodium Potassium Chloride Carbon Dioxide Anion Gap BUN Creatinine Estimated GFR POC Glucose 109 Random Glucose Lactic Acid Calcium Phosphorus Magnesium Total Bilirubin AST ALT Alkaline Phosphatase Ammonia Total Protein Albumin TSH Blood Type Blood Type Recheck Antibody Screen 12/23/17 12/23/17 12/23/17 03:50 03:50 03:50 WBC RBC Hgb Hct MCV MCH MCHC RDW Plt Count MPV Neut % (Auto) Lymph % (Auto) [place] % (Auto) Eos % (Auto) Baso % (Auto) Neut # (Auto) Lymph # (Auto) [place] # (Auto) Eos # (Auto) Baso # (Auto) WBC Differential Differential Comment PT 10.7 INR 1.1 APTT 21.9 L Sodium 147 H Potassium 3.3 L Chloride 113 H Carbon Dioxide 24.6 Anion Gap 9 BUN 35 H Creatinine 0.67 Estimated GFR Greater than 89 POC Glucose Random Glucose 105 Lactic Acid 1.9 Calcium 7.8 L Phosphorus 2.0 L Magnesium 2.1 Total Bilirubin 0.4 AST 161 H ALT 413 H Alkaline Phosphatase 124 H Ammonia Total Protein 6.7 Albumin 2.3 L TSH 2.110 Blood Type Blood Type Recheck Antibody Screen 12/23/17 12/23/17 03:50 06:45 WBC RBC Hgb Hct MCV MCH MCHC RDW Plt Count MPV Neut % (Auto) Lymph % (Auto) [place] % (Auto) Eos % (Auto) Baso % (Auto) Neut # (Auto) Lymph # (Auto) [place] # (Auto) Eos # (Auto) Baso # (Auto) WBC Differential Differential Comment PT INR APTT Sodium Potassium Chloride Carbon Dioxide Anion Gap BUN Creatinine Estimated GFR POC Glucose 109 Random Glucose Lactic Acid Calcium Phosphorus Magnesium Total Bilirubin AST ALT Alkaline Phosphatase Ammonia 42 H Total Protein Albumin TSH Blood Type Blood Type Recheck Antibody Screen <Jaja Wong - Last Filed: 12/23/17 10:44> Assessment and Plan - Plan Assessment: - Anemia with reports of one episode of melena H/H currently .05/07.4 Pt reportedly had been taking about 6 tablets of ASA daily prior to arrival because he states that and his Fentanyl patches are the only thing that helps with his pain. According to RN pt had one loose, black tarry BM earlier today, it was tested and came back Hemoccult positive. At present, pt is resting in bed, denies any nausea, vomiting, abdominal pain. 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 He currently receives everything through his PEG, according to RN he has been tolerating his tube feeding. Pt does thing that he has had previous EGD but believe it was in the 80s. Of note, he is on Plavix and ASA, states carotid stents, currently on hold. At time of my exam pt is on 6L o2 via [place] Plan: EGD when more stable, still on a high amount of oxygen via [place] Continue to monitor H/H Transfuse as indicated Protonix Hold TF PEG to gravity Further recommendations to follow Pt has been seen and examined by myself and Dr. Wong and this note is written on his behalf <Lindsey Santa - Last Filed: 12/22/17 16:43> - Attending Attestation Seen and examined, plan as above. Will follow up HH and clinically. Unstable for EGD at this time. Will follow up with you. Thank you for the consult. <Jaja Wong - Last Filed: 12/23/17 10:44>
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
[2017-12-22] MEDS: fentaNYL Citrate Inj 100 MCG/2 ML Ampul IV.PUSH PRN (17:58)
[2017-12-22] MEDS: Mirtazapine 15 MG Tablet PO SCH ×2 (19:36→20:30)
[2017-12-22] MEDS: Mupirocin 2% Nasal Oint Topical Syringe EACH NARE SCH (20:30)
[2017-12-23] MEDS: KCL 20 mEq/D5W/NaCl 0.45% Inj 1,000 ML IV.CONT SCH ×3 (00:09→20:25)
[2017-12-23] MEDS: Oral Hygiene Kit OROPHARYNG SCH ×4 (00:10→16:55)
[2017-12-23] MEDS: Piperacil/Tazo 4.5 GM Premix 4.5 GM/100 ML BAG IV.SIG SCH ×4 (00:10→18:18)
[2017-12-23] MEDS: Insulin NovoLOG Aspart Correctional Sugar Inj SQ SCH ×4 (00:58→18:17)
[2017-12-23] MEDS: fentaNYL Citrate Inj 100 MCG/2 ML Ampul IV.PUSH PRN ×3 (03:37→20:06)
[2017-12-23 04:28] LABS: Baso # (Auto) 0.1 th/mm3 (0.0-0.2); Baso % (Auto) 0.4 % (0.0-2.0); Eos % (Auto) 0.2 % (0.0-4.0); Hematocrit 25.6 % (39.0-51.0); Hemoglobin 8.3 gm/dL (13.0-17.0); Lymph # (Auto) 4.2 th/mm3 (1.0-4.8); Lymph % (Auto) 20.9 % (9.0-44.0); Mean Corpuscular HGB Conc 32.5 % (32.0-36.0); Mean Corpuscular Hemoglobin 32.8 pg (27.0-34.0); Mean Platelet Volume 9.4 fL (7.0-11.0); Mono # (Auto) 1.3 th/mm3 (0.0-0.9); Mono % (Auto) 6.3 % (0.0-8.0); Neut # (Auto) 14.4 th/mm3 (1.8-7.7); Neut % (Auto) 72.2 % (16.0-70.0); Platelet Count 543 th/mm3 (150-450); Red Blood Count 2.54 mil/mm3 (4.50-5.90); Red Cell Distribution Width 13.7 % (11.6-17.2); White Blood Count 19.9 th/mm3 (4.0-11.0)
[2017-12-23 04:32] LABS: Activated Partial Thrombo Time 21.9 sec (24.3-30.1); INR 1.1 Ratio; Prothrombin Time 10.7 sec (9.8-11.6)
[2017-12-23 04:36] LABS: Alanine Aminotransferase 413 U/L (12-78); Albumin 2.3 g/dL (3.4-5.0); Anion Gap 9 meq/L (5-15); Aspartate Aminotransferase 161 U/L (15-37); Blood Urea Nitrogen 35 mg/dL (7-18); Calcium 7.8 mg/dL (8.5-10.1); Carbon Dioxide 24.6 meq/L (21.0-32.0); Chloride 113 meq/L (98-107); Glomerular Filtration Rate Greater Than 89 mL/min (>89); Glucose,Random 105 mg/dL (74-106); Magnesium 2.1 mg/dL (1.5-2.5); Potassium 3.3 meq/L (3.5-5.1); Sodium 147 meq/L (136-145)
[2017-12-23 04:45] LABS: Alkaline Phosphatase 124 U/L (45-117); Total Protein 6.7 g/dL (6.4-8.2)
[2017-12-23] MEDS: Senna/Docusate Sodium 8.6/50 MG Tablet PO SCH ×2 (08:31→20:06)
[2017-12-23] MEDS: Pantoprazole Inj 40 MG Vial IV.PUSH SCH ×2 (09:09→20:06)
[2017-12-23] MEDS: Mupirocin 2% Nasal Oint Topical Syringe EACH NARE SCH ×2 (09:10→20:05)
[2017-12-23] MEDS: Chlorhexidine 0.12% Oral Kit 15 ML UDC OROPHARYNG SCH ×2 (09:10→20:05)
[2017-12-23] MEDS: clonazePAM 0.5 MG Tablet PO SCH ×3 (09:11→18:18)
[2017-12-23] MEDS: amLODIPine 10 MG Tablet PO SCH (09:11)
[2017-12-23] MEDS ORDERED: Potassium Phosphate Inj 30 MMOL in Sodium Chlor 0.9% Inj 250 ML IV.SIG ONE (09:45)
--- NOTE | 2017-12-23 09:45 | P.PNCC ---
Subjective Subjective Remarks/Hospital Course: 67-year-old male with past medical history of head and neck cancer presents from home after being found unresponsive. Patient was found by EMS to have spontaneous respirations palpable pulse and blood pressure but markedly decreased level of consciousness, hypotensive with large amount of tube feeding contents in the oral cavity. Patient has history of head neck cancer and takes no oral medications takes all medications and feedings through PEG tube. Patient was last seen normal approximately at breakfast time on Tuesday and then family members found him unresponsive. Unknown downtime. Upon EMS arrival patient was assessed and suctioned and initial O2 saturations were 60% patient was placed on supplemental oxygen with improved ventilations and then subsequently intubated with a 7.5 endotracheal tube. Per EMS copious amounts of suctioning was performed and large amounts of tube feeding were suctioned. Patient presents now with endotracheal tube in place bilateral breath sounds to auscultation with bag valve ventilation and normotensive upon EMS presentation however initial blood pressure here mildly hypotensive with systolic pressure of 90 mmHg. Patient remains unresponsive. Family members not available. Patient with known allergies to narcotics. No other medical history is available. 12/12: Afebrile. Currently on propofol and fentanyl drips. Not really moving his left upper lower extremity. CT brain with CT angiogram brain ordered. Cannot do MRI due to retained metal metal in eye according to . 12/13: Sedated, arousable, orally intubated on mechanical ventilation 12/14: Sedated, arousable, orally intubated on mechanical ventilation. 12/15: Extubated yesterday, on nasal cannula tolerating well. Precedex to be titrated off this morning. Fentanyl patch resumed yesterday. Patient is awake and alert, knows he is in the hospital. He recognizes his family members. Minimal weakness on the left side. Moving right side well. Tolerating PEG feeds. ___ 12/17: Patient transferred to hospitalist service yesterday, but this morning was again found to be in respiratory distress. Concern for recurrent aspiration as he had high tube feed residuals via PEG. Transferred to [facility]. 12/18: Patient tolerated bipap well yesterday, had some agitation overnight which improved with seroquel. 12/19: back on [place] o2. clinically improving. denies complaints. SOB improving. 12/20: Fluctuating mental status. Fentanyl patch discontinued today. Patient placed on BiPAP intermittently. Started Precedex for agitation. 12/21: Resting comfortably in bed on nasal cannula. Currently on BiPAP. 12/22: Afebrile. Tolerated BiPAP overnight. Large black BM today. Holding aspirin and clopidogrel. Holding enoxaparin. Stat CBC and Hemoccult ordered. And coags. Appears clinically stable. Subjective 12/23: Remains on 6 L nasal cannula. Hemoglobin currently 8.3. PEG tube currently to gravity.. Replacing potassium phosphorus. Objective Vital Signs / I&O: Vital Signs 12/22/17 10:00 12/22/17 12:00 12/22/17 12:30 Temperature 97.5 F L Pulse Rate 105 H 106 H 109 H Respiratory Rate 26 H 28 H Blood Pressure 125/71 132/75 Pulse Oximetry 90 L 87 L 12/22/17 13:00 12/22/17 13:30 12/22/17 13:51 Temperature Pulse Rate 107 H 106 H Respiratory Rate 29 H 25 H Blood Pressure 126/70 141/67 H Pulse Oximetry 87 L 90 L 90 L 12/22/17 14:00 12/22/17 14:30 12/22/17 15:00 Temperature Pulse Rate 106 H 106 H 110 H Respiratory Rate 26 H 25 H 32 H Blood Pressure 152/73 H 135/71 133/75 Pulse Oximetry 92 L 90 L 87 L 12/22/17 15:30 12/22/17 16:00 12/22/17 16:30 Temperature 98.1 F Pulse Rate 107 H 113 H 109 H Respiratory Rate 40 H 36 H 31 H Blood Pressure 145/70 H 135/80 130/70 Pulse Oximetry 87 L 89 L 91 L 12/22/17 17:00 12/22/17 17:30 12/22/17 18:00 Temperature Pulse Rate 115 H 115 H 115 H Respiratory Rate 22 36 H 26 H Blood Pressure 154/82 H 119/67 151/76 H Pulse Oximetry 89 L 89 L 90 L 12/22/17 18:30 12/22/17 19:00 12/22/17 19:30 Temperature Pulse Rate 109 H 110 H 108 H Respiratory Rate 31 H 32 H 33 H Blood Pressure 142/71 H 145/73 H 133/77 Pulse Oximetry 87 L 87 L 92 L 12/22/17 19:45 12/22/17 20:00 12/22/17 20:30 Temperature 98.2 F Pulse Rate 113 H 115 H Respiratory Rate 38 H 42 H Blood Pressure 159/85 H 171/97 H Pulse Oximetry 90 L 91 L 90 L 12/22/17 21:00 12/22/17 21:08 12/22/17 21:11 Temperature Pulse Rate 109 H 104 H Respiratory Rate 32 H 28 H Blood Pressure 160/76 H Pulse Oximetry 82 L 90 L 12/22/17 21:30 12/22/17 22:00 12/22/17 22:30 Temperature Pulse Rate 100 H 63 100 H Respiratory Rate 27 H 41 H 30 H Blood Pressure 140/73 167/81 H 160/75 H Pulse Oximetry 94 L 94 L 99 12/22/17 23:00 12/22/17 23:30 12/23/17 00:00 Temperature 97.8 F Pulse Rate 101 H 97 H 96 H Respiratory Rate 27 H 17 25 H Blood Pressure 153/71 H 154/74 H 154/72 H Pulse Oximetry 92 L 94 L 92 L 12/23/17 00:30 12/23/17 01:10 12/23/17 02:00 Temperature Pulse Rate 90 93 H Respiratory Rate 25 H Blood Pressure 148/70 H Pulse Oximetry 93 L 92 L 12/23/17 04:00 12/23/17 04:20 12/23/17 06:00 Temperature 98.8 F Pulse Rate 99 H 99 H Respiratory Rate 11 L Blood Pressure 139/72 Pulse Oximetry 92 L 95 12/23/17 08:00 12/23/17 08:12 Temperature 97.7 F Pulse Rate 90 Respiratory Rate 24 Blood Pressure 158/72 H Pulse Oximetry 92 L 92 L Intake & Output 12/22/17 12/23/17 12/23/17 18:59 06:59 18:59 Intake Total 433 / 433 1400 / 1400 Output Total 1350 / 1350 Balance -917 / -917 1400 / 1400 Weight 81 kg Intake: IV 200 / 200 1400 / 1400 D5W/1/2NS + KCL 20 mEq Inj 1, 1000 / 1000 000 ML @ 100 mls/hr IV.CONT . Q10H HEATHER Rx#:[id number] Zosyn 4.5 GM Premix 4.5 gm In 100 / 100 200 / 200 100 ml @ 200 mls/hr IV.SIG Q6H HEATHER Rx#:[id number] KCl 20 mEq Premix Inj 20 meq In 100 / 100 100 / 100 100 ml @ 50 mls/hr IV.SIG Q2H PRN Rx#:[id number] Oral 0 / 0 Tube Feeding 153 / 153 0 / 0 Water Bolus Amount 80 / 80 Output: Urine Amount (Catheter) 1350 / 1350 Indwelling Urethral Catheter 1350 / 1350 Other: # Voids 5 Date of Last Bowel Movement 12/22/17 12/22/17 12/22/17 # Bowel Movements 1 Result Diagrams: 12/23/17 03:50 12/23/17 03:50 Other Results: Microbiology 12/22/17 12:55 Stool Stool Occult Blood (ADAM) - Final Hemoccult positive 12/18/17 05:14 Blood - Peripheral Aerobic Blood Culture - Preliminary No growth in 4 days 12/18/17 05:14 Blood - Peripheral Anaerobic Blood Culture - Final QNS - See aerobic report. 12/18/17 05:05 Blood - Peripheral Aerobic Blood Culture - Preliminary No growth in 4 days 12/18/17 05:05 Blood - Peripheral Anaerobic Blood Culture - Preliminary No growth in 4 days 12/11/17 22:55 Blood - Peripheral Aerobic Blood Culture - Final No growth in 5 days 12/11/17 22:55 Blood - Peripheral Anaerobic Blood Culture - Final Corynebacterium not JK 12/11/17 23:00 Blood - Peripheral Aerobic Blood Culture - Final Corynebacterium not JK 12/11/17 23:00 Blood - Peripheral Anaerobic Blood Culture - Final No growth in 5 days 12/11/17 Unknown Sputum - Endotracheal Gram Stain - Final 12/11/17 Unknown Sputum - Endotracheal Sputum Culture - Final Pseudomonas aeruginosa Escherichia coli Beta Strep not group A 12/11/17 23:00 Catheterized Urine Urine Culture - Final No growth in 48 hours Imaging: Chest X-Ray 12/11/17 22:21 CONCLUSION: 1. Underinflation with perihilar interstitial prominence which could be related to the underinflation or could represent pulmonary edema. No airspace consolidation is identified. 2. Endotracheal tube tip measures 2.7 cm from the rosette. Cervical Spine CT 12/12/17 00:00 CONCLUSION: No acute cervical spine abnormality is identified. Head CT 12/12/17 00:00 CONCLUSION: No acute intracranial abnormality is identified. . Head CTA 12/12/17 00:00 CONCLUSION: 1. Negative CTA Head. Neck CTA 12/12/17 00:00 CONCLUSION: 1. Atelectatic calcifications and areas of ulceration involving the origin of the right internal carotid artery with approximate 70-80% stenosis right at the takeoff of the right ICA prior to the start of the patient's internal coronary stent. Head CT 12/12/17 12:29 CONCLUSION: 1. Subtle areas of low attenuation are now seen in the right frontal and occipital regions of concern for areas of evolving infarction. There is no hemorrhage or mass effect. . Chest X-Ray 12/13/17 06:00 CONCLUSION: Mildly increased perihilar interstitial and airspace opacities. Although nonspecific the appearance could be related to pulmonary edema in the appropriate clinical setting. Chest X-Ray 12/17/17 11:50 CONCLUSION: Interval extubation with improved lung exam. Chest X-Ray 12/20/17 00:00 CONCLUSION: Continued prominence of the right [place] with continued infiltrate predominantly within the right lung. Changes are stable compared to previous. At some point, CT imaging would be of benefit to exclude right hilar mass if this has not already been performed. Chest CTA 12/21/17 00:00 CONCLUSION: 1. Apparent right subclavian artery. 2. Mildly enlarged subcarinal and right hilar lymph nodes. adenopathy. 3. Scattered pulmonary infiltrates including right lower lobe consolidation with air bronchogram formation. 4. Atherosclerosis. 5. No evidence for pulmonary embolism. Objective Remarks: GENERAL: Elderly male lying in bed, on nasal cannula SKIN: Warm and dry HEENT: NCAT, PERRL NECK: Trachea midline. Scarring from prior neck dissection CARDIOVASCULAR: Regular rate and rhythm. S1, S2 no S4. RESPIRATORY: On nasal cannula, good air entry bilaterally, scattered rhonchi more on the right, no wheezing. GASTROINTESTINAL: Soft, non-tender, non-distended. PEG tube present with some surrounding erythema but no bleeding. Currently to gravity MUSCULOSKELETAL: No peripheral edema NEUROLOGICAL: Drowsy, arousable, disoriented, on nasal cannula moving all extremities Assessment and Plan - Assessment and Plan Plan: Neuro/Psych: Acute encephalopathy- resolved Cerebrovascular accident Chronic benzodiazepine use with clonazepam 1 mg 3 times daily Chronic opioid use with fentanyl patches 25 mcg every 72 hours/found with 3 fentanyl patches on him Depression disorder NOS Fentanyl patch 25 mcg every 3 days home dose. Fentanyl 50 adam grams IV every 4 hours as needed breakthrough pain Dexmedetomidine drip ordered overnight s/p right frontal and occipital CVA, unable to do MRI brain secondary to retained metal in eye according to . * Has bilateral internal carotid artery stents, right carotid stent has ulcerated plaque with 80% stenosis. Per vascular consult, may need additional stent inside of original one in order to cover the ulceration and relieve the stenosis. Will need a carotid angio first for pre-op planning. * ASA, 325 mg daily and clopidogrel 75 75 mg daily on hold due to possible GI bleed CV: Elevated troponin-- resolved Essential hypertension- chronic Coronary artery disease- chronic Bilateral carotid artery stents- chronic Troponin peaked at 0.39, no longer trending Due to possible GI bleed holding y full-dose aspirin 325 mg daily and clopidogrel 75 mg daily Continue amlodipine 10 mg daily/home medication for hypertension 2D echo showed EF 60-65%, moderate pulmonary HTN (PA pressure 32 mmHg), moderate AR, trace TR Resp: Acute respiratory failure-- recurrent- resolving. Acute COPD exacerbation Healthcare associated Aspiration pneumonia Extubated on 12/14, transferred back to [facility] 12/17 for bipap now back to BiPAP prn on 12/20 Completed 5 day course of steroids for presumed COPD exacerbation Completed full 10 day course of piperacillin/tazobactam for HCAP aspiration pneumonia. Albuterol/ipratropium aerosols every 6 hours with albuterol aerosols every 2 hours as needed. Dyspnea GI: Chronic dysphagia requring PEG tube nutrition Hypoalbuminemia Possible GI bleed with aspirin [id number] We will hold tube feeds secondary to possible GI bleed hold for residual >300 cc Pantoprazole 40 mg IV twice daily for GI prophylaxis Docusate sodium/senna 1 tablet twice daily for bowel regimen Hemoglobins every 6 hours. Transfuse hemoglobin greater than equal 7.0 : d/c mccray catheter. Endo: SSI with Accu-Cheks every 6 hours to maintain euglycemia Renal: Monitor urine output HEME: Leukocytosis Normocytic anemia Thrombocytosis Monitor CBC daily. Follow trends No indication for transfusion of blood products at this time ID: Day 10 of piperacillin/tazobactam for pseudomonal/ E coli pneumonia, will continue for now as patient's respiratory status acutely worsened yesterday. Consult ID for worsening pneumonia/recurrent aspiration. Pertinent cultures 12/11 -sputum-Pseudomonas, E. coli, beta strep not a 12/11 blood cultures 2 Corynebacterium not J/K-repeat blood cultures 12/18 no growth MSK: PT evaluate and treat FEN: Hypophosphatemia Hypokalemia Replace electrolytes as clinically indicated per ICU electrolyte protocol Continue D5 one half normal saline at 100 cc an hour while n.p.o. Access -Peripheral IV Prophylaxis -GI -pantoprazole -DVT -SCD/enoxaparin on hold due to possible GI bleed Level 3 follow-up. Discussed with at bedside.
--- NOTE | 2017-12-23 09:54 | P.PN ---
Subjective Interval history: aert NAD Physical Exam Vital signs: Vital Signs 12/22/17 10:00 12/22/17 12:00 12/22/17 12:30 Temperature 97.5 F L Pulse Rate 105 H 106 H 109 H Respiratory Rate 26 H 28 H Blood Pressure 125/71 132/75 Pulse Oximetry 90 L 87 L 12/22/17 13:00 12/22/17 13:30 12/22/17 13:51 Temperature Pulse Rate 107 H 106 H Respiratory Rate 29 H 25 H Blood Pressure 126/70 141/67 H Pulse Oximetry 87 L 90 L 90 L 12/22/17 14:00 12/22/17 14:30 12/22/17 15:00 Temperature Pulse Rate 106 H 106 H 110 H Respiratory Rate 26 H 25 H 32 H Blood Pressure 152/73 H 135/71 133/75 Pulse Oximetry 92 L 90 L 87 L 12/22/17 15:30 12/22/17 16:00 12/22/17 16:30 Temperature 98.1 F Pulse Rate 107 H 113 H 109 H Respiratory Rate 40 H 36 H 31 H Blood Pressure 145/70 H 135/80 130/70 Pulse Oximetry 87 L 89 L 91 L 12/22/17 17:00 12/22/17 17:30 12/22/17 18:00 Temperature Pulse Rate 115 H 115 H 115 H Respiratory Rate 22 36 H 26 H Blood Pressure 154/82 H 119/67 151/76 H Pulse Oximetry 89 L 89 L 90 L 12/22/17 18:30 12/22/17 19:00 12/22/17 19:30 Temperature Pulse Rate 109 H 110 H 108 H Respiratory Rate 31 H 32 H 33 H Blood Pressure 142/71 H 145/73 H 133/77 Pulse Oximetry 87 L 87 L 92 L 12/22/17 19:45 12/22/17 20:00 12/22/17 20:30 Temperature 98.2 F Pulse Rate 113 H 115 H Respiratory Rate 38 H 42 H Blood Pressure 159/85 H 171/97 H Pulse Oximetry 90 L 91 L 90 L 12/22/17 21:00 12/22/17 21:08 12/22/17 21:11 Temperature Pulse Rate 109 H 104 H Respiratory Rate 32 H 28 H Blood Pressure 160/76 H Pulse Oximetry 82 L 90 L 12/22/17 21:30 12/22/17 22:00 12/22/17 22:30 Temperature Pulse Rate 100 H 63 100 H Respiratory Rate 27 H 41 H 30 H Blood Pressure 140/73 167/81 H 160/75 H Pulse Oximetry 94 L 94 L 99 12/22/17 23:00 12/22/17 23:30 12/23/17 00:00 Temperature 97.8 F Pulse Rate 101 H 97 H 96 H Respiratory Rate 27 H 17 25 H Blood Pressure 153/71 H 154/74 H 154/72 H Pulse Oximetry 92 L 94 L 92 L 12/23/17 00:30 12/23/17 01:10 12/23/17 02:00 Temperature Pulse Rate 90 93 H Respiratory Rate 25 H Blood Pressure 148/70 H Pulse Oximetry 93 L 92 L 12/23/17 04:00 12/23/17 04:20 12/23/17 06:00 Temperature 98.8 F Pulse Rate 99 H 99 H Respiratory Rate 11 L Blood Pressure 139/72 Pulse Oximetry 92 L 95 12/23/17 08:00 12/23/17 08:12 Temperature 97.7 F Pulse Rate 90 Respiratory Rate 24 Blood Pressure 158/72 H Pulse Oximetry 92 L 92 L Intake & Output 12/22/17 12/23/17 12/23/17 18:59 06:59 18:59 Intake Total 433 / 433 1400 / 1400 Output Total 1350 / 1350 Balance -917 / -917 1400 / 1400 Weight 81 kg Intake: IV 200 / 200 1400 / 1400 D5W/1/2NS + KCL 20 mEq Inj 1, 1000 / 1000 000 ML @ 100 mls/hr IV.CONT . Q10H HEATHER Rx#:[id number] Zosyn 4.5 GM Premix 4.5 gm In 100 / 100 200 / 200 100 ml @ 200 mls/hr IV.SIG Q6H HEATHER Rx#:[id number] KCl 20 mEq Premix Inj 20 meq In 100 / 100 100 / 100 100 ml @ 50 mls/hr IV.SIG Q2H PRN Rx#:[id number] Oral 0 / 0 Tube Feeding 153 / 153 0 / 0 Water Bolus Amount 80 / 80 Output: Urine Amount (Catheter) 1350 / 1350 Indwelling Urethral Catheter 1350 / 1350 Other: # Voids 5 Date of Last Bowel Movement 12/22/17 12/22/17 12/22/17 # Bowel Movements 1 - Constitutional no acute distress - Routine HEENT Exam Head: Present: normocephalic Eye: Present: EOMI, PERRL ENT: Present: mucous membranes moist - Routine Neck Exam Present: supple - Routine Cardiovascular Exam Present: RRR, S1, S2 - Routine Abdominal Exam Present: soft, normoactive bowel sounds - Routine Skin Exam Present: intact - Routine Neurological Exam Present: alert, oriented X3 - Urinary Catheter Management Indwelling Urethral Catheter Cath placed during this visit: yes, but has since been removed by the nurse Reason for continuing: Acute urinary retention Insertion date: 12/20/17 Insertion time: 14:52 Removal date: 12/22/17 Removal time: 17:30 Results - Labs CBC & Chem 7: 12/23/17 03:50 12/23/17 03:50 Laboratory Results - last 24 hr 12/22/17 12/22/17 12/22/17 11:07 15:10 15:10 WBC RBC Hgb 9.1 L Hct 27.4 L MCV MCH MCHC RDW Plt Count MPV Neut % (Auto) Lymph % (Auto) [place] % (Auto) Eos % (Auto) Baso % (Auto) Neut # (Auto) Lymph # (Auto) [place] # (Auto) Eos # (Auto) Baso # (Auto) WBC Differential Differential Comment PT 10.8 INR 1.1 APTT 22.9 L Sodium Potassium Chloride Carbon Dioxide Anion Gap BUN Creatinine Estimated GFR POC Glucose 156 H Random Glucose Lactic Acid Calcium Phosphorus Magnesium Total Bilirubin AST ALT Alkaline Phosphatase Ammonia Total Protein Albumin TSH Blood Type Blood Type Recheck Antibody Screen 12/22/17 12/22/17 12/22/17 15:10 16:26 16:59 WBC RBC Hgb Hct MCV MCH MCHC RDW Plt Count MPV Neut % (Auto) Lymph % (Auto) [place] % (Auto) Eos % (Auto) Baso % (Auto) Neut # (Auto) Lymph # (Auto) [place] # (Auto) Eos # (Auto) Baso # (Auto) WBC Differential Differential Comment PT INR APTT Sodium Potassium 3.9 D Chloride Carbon Dioxide Anion Gap BUN Creatinine Estimated GFR POC Glucose 132 H Random Glucose Lactic Acid Calcium Phosphorus Magnesium Total Bilirubin AST ALT Alkaline Phosphatase Ammonia Total Protein Albumin TSH Blood Type A Positive Blood Type Recheck Required Antibody Screen Negative 12/22/17 12/23/17 12/23/17 20:41 00:21 03:50 WBC 19.9 H RBC 2.54 L Hgb 8.8 L 8.3 L Hct 25.6 L MCV 101.0 H MCH 32.8 MCHC 32.5 RDW 13.7 Plt Count 543 H D MPV 9.4 Neut % (Auto) 72.2 H Lymph % (Auto) 20.9 [place] % (Auto) 6.3 Eos % (Auto) 0.2 Baso % (Auto) 0.4 Neut # (Auto) 14.4 H Lymph # (Auto) 4.2 [place] # (Auto) 1.3 H Eos # (Auto) 0.0 Baso # (Auto) 0.1 WBC Differential . Differential Comment Auto diff final PT INR APTT Sodium Potassium Chloride Carbon Dioxide Anion Gap BUN Creatinine Estimated GFR POC Glucose 109 Random Glucose Lactic Acid Calcium Phosphorus Magnesium Total Bilirubin AST ALT Alkaline Phosphatase Ammonia Total Protein Albumin TSH Blood Type Blood Type Recheck Antibody Screen 12/23/17 12/23/17 12/23/17 03:50 03:50 03:50 WBC RBC Hgb Hct MCV MCH MCHC RDW Plt Count MPV Neut % (Auto) Lymph % (Auto) [place] % (Auto) Eos % (Auto) Baso % (Auto) Neut # (Auto) Lymph # (Auto) [place] # (Auto) Eos # (Auto) Baso # (Auto) WBC Differential Differential Comment PT 10.7 INR 1.1 APTT 21.9 L Sodium 147 H Potassium 3.3 L Chloride 113 H Carbon Dioxide 24.6 Anion Gap 9 BUN 35 H Creatinine 0.67 Estimated GFR Greater than 89 POC Glucose Random Glucose 105 Lactic Acid 1.9 Calcium 7.8 L Phosphorus 2.0 L Magnesium 2.1 Total Bilirubin 0.4 AST 161 H ALT 413 H Alkaline Phosphatase 124 H Ammonia Total Protein 6.7 Albumin 2.3 L TSH 2.110 Blood Type Blood Type Recheck Antibody Screen 12/23/17 12/23/17 03:50 06:45 WBC RBC Hgb Hct MCV MCH MCHC RDW Plt Count MPV Neut % (Auto) Lymph % (Auto) [place] % (Auto) Eos % (Auto) Baso % (Auto) Neut # (Auto) Lymph # (Auto) [place] # (Auto) Eos # (Auto) Baso # (Auto) WBC Differential Differential Comment PT INR APTT Sodium Potassium Chloride Carbon Dioxide Anion Gap BUN Creatinine Estimated GFR POC Glucose 109 Random Glucose Lactic Acid Calcium Phosphorus Magnesium Total Bilirubin AST ALT Alkaline Phosphatase Ammonia 42 H Total Protein Albumin TSH Blood Type Blood Type Recheck Antibody Screen Microbiology 12/22/17 12:55 Stool Stool Occult Blood (GEREMIAS) - Final Hemoccult positive 12/18/17 05:14 Blood - Peripheral Aerobic Blood Culture - Preliminary No growth in 4 days 12/18/17 05:14 Blood - Peripheral Anaerobic Blood Culture - Final QNS - See aerobic report. 12/18/17 05:05 Blood - Peripheral Aerobic Blood Culture - Preliminary No growth in 4 days 12/18/17 05:05 Blood - Peripheral Anaerobic Blood Culture - Preliminary No growth in 4 days Assessment and Plan - Plan IMPRESSION RESPIRATORY FAILURE PNA HILAR ADENOPATHY HEAD AND NECK CA PLAN O2 ANTIBX PULM TOILET BRONCHOSCPY WHEN ON FLOOR
[2017-12-23] MEDS: Potassium Chlor 10 mEq Premix 10 MEQ/100 ML PIGGYBACK IV.SIG SCH ×3 (09:59→11:27)
--- NOTE | 2017-12-23 12:12 | P.PNGI ---
Subjective Interval history: Patient continues to be in the ICU setting on 6 L oxygen O2 sat labile between 91 and 95 patient was also using BiPAP at night. Patient is requiring some suctioning and does have some mild coffee-ground emesis noted. Appears weakened and mildly lethargic. Hemoglobin remains 8.3 today <Suha Sotelo - Last Filed: 12/23/17 12:06> Physical Exam Vital signs: Vital Signs 12/22/17 12:30 12/22/17 13:00 12/22/17 13:30 Temperature Pulse Rate 109 H 107 H 106 H Respiratory Rate 28 H 29 H 25 H Blood Pressure 132/75 126/70 141/67 H Pulse Oximetry 87 L 87 L 90 L 12/22/17 13:51 12/22/17 14:00 12/22/17 14:30 Temperature Pulse Rate 106 H 106 H Respiratory Rate 26 H 25 H Blood Pressure 152/73 H 135/71 Pulse Oximetry 90 L 92 L 90 L 12/22/17 15:00 12/22/17 15:30 12/22/17 16:00 Temperature 98.1 F Pulse Rate 110 H 107 H 113 H Respiratory Rate 32 H 40 H 36 H Blood Pressure 133/75 145/70 H 135/80 Pulse Oximetry 87 L 87 L 89 L 12/22/17 16:30 12/22/17 17:00 12/22/17 17:30 Temperature Pulse Rate 109 H 115 H 115 H Respiratory Rate 31 H 22 36 H Blood Pressure 130/70 154/82 H 119/67 Pulse Oximetry 91 L 89 L 89 L 12/22/17 18:00 12/22/17 18:30 12/22/17 19:00 Temperature Pulse Rate 115 H 109 H 110 H Respiratory Rate 26 H 31 H 32 H Blood Pressure 151/76 H 142/71 H 145/73 H Pulse Oximetry 90 L 87 L 87 L 12/22/17 19:30 12/22/17 19:45 12/22/17 20:00 Temperature 98.2 F Pulse Rate 108 H 113 H Respiratory Rate 33 H 38 H Blood Pressure 133/77 159/85 H Pulse Oximetry 92 L 90 L 91 L 12/22/17 20:30 12/22/17 21:00 12/22/17 21:08 Temperature Pulse Rate 115 H 109 H 104 H Respiratory Rate 42 H 32 H 28 H Blood Pressure 171/97 H 160/76 H Pulse Oximetry 90 L 82 L 12/22/17 21:11 12/22/17 21:30 12/22/17 22:00 Temperature Pulse Rate 100 H 63 Respiratory Rate 27 H 41 H Blood Pressure 140/73 167/81 H Pulse Oximetry 90 L 94 L 94 L 12/22/17 22:30 12/22/17 23:00 12/22/17 23:30 Temperature Pulse Rate 100 H 101 H 97 H Respiratory Rate 30 H 27 H 17 Blood Pressure 160/75 H 153/71 H 154/74 H Pulse Oximetry 99 92 L 94 L 12/23/17 00:00 12/23/17 00:30 12/23/17 01:10 Temperature 97.8 F Pulse Rate 96 H 90 Respiratory Rate 25 H 25 H Blood Pressure 154/72 H 148/70 H Pulse Oximetry 92 L 93 L 92 L 12/23/17 02:00 12/23/17 04:00 12/23/17 04:20 Temperature 98.8 F Pulse Rate 93 H 99 H Respiratory Rate 11 L Blood Pressure 139/72 Pulse Oximetry 92 L 95 12/23/17 06:00 12/23/17 08:00 12/23/17 08:12 Temperature 97.7 F Pulse Rate 99 H 90 Respiratory Rate 24 Blood Pressure 158/72 H Pulse Oximetry 92 L 92 L 12/23/17 10:00 12/23/17 10:49 Temperature Pulse Rate 90 101 H Respiratory Rate 20 Blood Pressure Pulse Oximetry Intake & Output 12/22/17 12/23/17 12/23/17 18:59 06:59 18:59 Intake Total 433 / 433 1400 / 1400 1100 / 1100 Output Total 1350 / 1350 Balance -917 / -917 1400 / 1400 1100 / 1100 Weight 81 kg Intake: IV 200 / 200 1400 / 1400 1100 / 1100 D5W/1/2NS + KCL 20 mEq Inj 1, 1000 / 1000 1000 / 1000 000 ML @ 100 mls/hr IV.CONT . Q10H HEATHER Rx#:[id number] Zosyn 4.5 GM Premix 4.5 gm In 100 / 100 200 / 200 100 / 100 100 ml @ 200 mls/hr IV.SIG Q6H HEATHER Rx#:[id number] KCl 20 mEq Premix Inj 20 meq In 100 / 100 100 / 100 100 ml @ 50 mls/hr IV.SIG Q2H PRN Rx#:[id number] Oral 0 / 0 Tube Feeding 153 / 153 0 / 0 Water Bolus Amount 80 / 80 Output: Urine Amount (Catheter) 1350 / 1350 Indwelling Urethral Catheter 1350 / 1350 Other: # Voids 5 Date of Last Bowel Movement 12/22/17 12/22/17 12/22/17 # Bowel Movements 1 - Constitutional moderate distress, disheveled - Routine HEENT Exam Head: Present: normocephalic ENT: Present: mucous membranes dry - Routine Neck Exam Present: supple - Routine Respiratory Exam Present: accessory muscle use (Low volumes diminished breath sounds requiring oxygen at 6 L nasal cannula as well as BiPAP at night) - Routine Cardiovascular Exam Present: S1, S2 - Routine Abdominal Exam Present: soft (Round,), normoactive bowel sounds - Routine Skin Exam Present: pallor - Urinary Catheter Management Indwelling Urethral Catheter Cath placed during this visit: yes, but has since been removed by the nurse Reason for continuing: Acute urinary retention Insertion date: 12/20/17 Insertion time: 14:52 Removal date: 12/22/17 Removal time: 17:30 <Suha Sotelo - Last Filed: 12/23/17 12:06> Vital signs: Vital Signs 12/22/17 13:51 12/22/17 14:00 12/22/17 14:30 Temperature Pulse Rate 106 H 106 H Respiratory Rate 26 H 25 H Blood Pressure 152/73 H 135/71 Pulse Oximetry 90 L 92 L 90 L 12/22/17 15:00 12/22/17 15:30 12/22/17 16:00 Temperature 98.1 F Pulse Rate 110 H 107 H 113 H Respiratory Rate 32 H 40 H 36 H Blood Pressure 133/75 145/70 H 135/80 Pulse Oximetry 87 L 87 L 89 L 12/22/17 16:30 12/22/17 17:00 12/22/17 17:30 Temperature Pulse Rate 109 H 115 H 115 H Respiratory Rate 31 H 22 36 H Blood Pressure 130/70 154/82 H 119/67 Pulse Oximetry 91 L 89 L 89 L 12/22/17 18:00 12/22/17 18:30 12/22/17 19:00 Temperature Pulse Rate 115 H 109 H 110 H Respiratory Rate 26 H 31 H 32 H Blood Pressure 151/76 H 142/71 H 145/73 H Pulse Oximetry 90 L 87 L 87 L 12/22/17 19:30 12/22/17 19:45 12/22/17 20:00 Temperature 98.2 F Pulse Rate 108 H 113 H Respiratory Rate 33 H 38 H Blood Pressure 133/77 159/85 H Pulse Oximetry 92 L 90 L 91 L 12/22/17 20:30 12/22/17 21:00 12/22/17 21:08 Temperature Pulse Rate 115 H 109 H 104 H Respiratory Rate 42 H 32 H 28 H Blood Pressure 171/97 H 160/76 H Pulse Oximetry 90 L 82 L 12/22/17 21:11 12/22/17 21:30 12/22/17 22:00 Temperature Pulse Rate 100 H 63 Respiratory Rate 27 H 41 H Blood Pressure 140/73 167/81 H Pulse Oximetry 90 L 94 L 94 L 12/22/17 22:30 12/22/17 23:00 12/22/17 23:30 Temperature Pulse Rate 100 H 101 H 97 H Respiratory Rate 30 H 27 H 17 Blood Pressure 160/75 H 153/71 H 154/74 H Pulse Oximetry 99 92 L 94 L 12/23/17 00:00 12/23/17 00:30 12/23/17 01:10 Temperature 97.8 F Pulse Rate 96 H 90 Respiratory Rate 25 H 25 H Blood Pressure 154/72 H 148/70 H Pulse Oximetry 92 L 93 L 92 L 12/23/17 02:00 12/23/17 04:00 12/23/17 04:20 Temperature 98.8 F Pulse Rate 93 H 99 H Respiratory Rate 11 L Blood Pressure 139/72 Pulse Oximetry 92 L 95 12/23/17 06:00 12/23/17 08:00 12/23/17 08:12 Temperature 97.7 F Pulse Rate 99 H 90 Respiratory Rate 24 Blood Pressure 158/72 H Pulse Oximetry 92 L 92 L 12/23/17 10:00 12/23/17 10:49 12/23/17 12:00 Temperature 98.5 F Pulse Rate 90 101 H 94 H Respiratory Rate 20 23 Blood Pressure 113/58 L Pulse Oximetry 91 L Intake & Output 12/22/17 12/23/17 12/23/17 18:59 06:59 18:59 Intake Total 433 / 433 1400 / 1400 1100 / 1100 Output Total 1350 / 1350 Balance -917 / -917 1400 / 1400 1100 / 1100 Weight 81 kg Intake: IV 200 / 200 1400 / 1400 1100 / 1100 D5W/1/2NS + KCL 20 mEq Inj 1, 1000 / 1000 1000 / 1000 000 ML @ 100 mls/hr IV.CONT . Q10H HEATHER Rx#:[id number] Zosyn 4.5 GM Premix 4.5 gm In 100 / 100 200 / 200 100 / 100 100 ml @ 200 mls/hr IV.SIG Q6H HEATHER Rx#:[id number] KCl 20 mEq Premix Inj 20 meq In 100 / 100 100 / 100 100 ml @ 50 mls/hr IV.SIG Q2H PRN Rx#:[id number] Oral 0 / 0 Tube Feeding 153 / 153 0 / 0 Water Bolus Amount 80 / 80 Output: Urine Amount (Catheter) 1350 / 1350 Indwelling Urethral Catheter 1350 / 1350 Other: # Voids 5 Date of Last Bowel Movement 12/22/17 12/22/17 12/22/17 # Bowel Movements 1 - Urinary Catheter Management Indwelling Urethral Catheter Cath placed during this visit: no <Jaja Wong A - Last Filed: 12/23/17 13:39> Results - Labs CBC & Chem 7: 12/23/17 03:50 12/23/17 03:50 Laboratory Results - last 24 hr 12/22/17 12/22/17 12/22/17 15:10 15:10 15:10 WBC RBC Hgb 9.1 L Hct 27.4 L MCV MCH MCHC RDW Plt Count MPV Neut % (Auto) Lymph % (Auto) Glades % (Auto) Eos % (Auto) Baso % (Auto) Neut # (Auto) Lymph # (Auto) [place] # (Auto) Eos # (Auto) Baso # (Auto) WBC Differential Differential Comment PT 10.8 INR 1.1 APTT 22.9 L Sodium Potassium Chloride Carbon Dioxide Anion Gap BUN Creatinine Estimated GFR POC Glucose Random Glucose Lactic Acid Calcium Phosphorus Magnesium Total Bilirubin AST ALT Alkaline Phosphatase Ammonia Total Protein Albumin TSH Blood Type A Positive Blood Type Recheck Required Antibody Screen Negative 12/22/17 12/22/17 12/22/17 16:26 16:59 20:41 WBC RBC Hgb 8.8 L Hct MCV MCH MCHC RDW Plt Count MPV Neut % (Auto) Lymph % (Auto) [place] % (Auto) Eos % (Auto) Baso % (Auto) Neut # (Auto) Lymph # (Auto) [place] # (Auto) Eos # (Auto) Baso # (Auto) WBC Differential Differential Comment PT INR APTT Sodium Potassium 3.9 D Chloride Carbon Dioxide Anion Gap BUN Creatinine Estimated GFR POC Glucose 132 H Random Glucose Lactic Acid Calcium Phosphorus Magnesium Total Bilirubin AST ALT Alkaline Phosphatase Ammonia Total Protein Albumin TSH Blood Type Blood Type Recheck Antibody Screen 12/23/17 12/23/17 12/23/17 00:21 03:50 03:50 WBC 19.9 H RBC 2.54 L Hgb 8.3 L Hct 25.6 L MCV 101.0 H MCH 32.8 MCHC 32.5 RDW 13.7 Plt Count 543 H D MPV 9.4 Neut % (Auto) 72.2 H Lymph % (Auto) 20.9 Glades % (Auto) 6.3 Eos % (Auto) 0.2 Baso % (Auto) 0.4 Neut # (Auto) 14.4 H Lymph # (Auto) 4.2 Glades # (Auto) 1.3 H Eos # (Auto) 0.0 Baso # (Auto) 0.1 WBC Differential . Differential Comment Auto diff final PT INR APTT Sodium 147 H Potassium 3.3 L Chloride 113 H Carbon Dioxide 24.6 Anion Gap 9 BUN 35 H Creatinine 0.67 Estimated GFR Greater than 89 POC Glucose 109 Random Glucose 105 Lactic Acid Calcium 7.8 L Phosphorus 2.0 L Magnesium 2.1 Total Bilirubin 0.4 AST 161 H ALT 413 H Alkaline Phosphatase 124 H Ammonia Total Protein 6.7 Albumin 2.3 L TSH 2.110 Blood Type Blood Type Recheck Antibody Screen 12/23/17 12/23/17 12/23/17 03:50 03:50 03:50 WBC RBC Hgb Hct MCV MCH MCHC RDW Plt Count MPV Neut % (Auto) Lymph % (Auto) Glades % (Auto) Eos % (Auto) Baso % (Auto) Neut # (Auto) Lymph # (Auto) [place] # (Auto) Eos # (Auto) Baso # (Auto) WBC Differential Differential Comment PT 10.7 INR 1.1 APTT 21.9 L Sodium Potassium Chloride Carbon Dioxide Anion Gap BUN Creatinine Estimated GFR POC Glucose Random Glucose Lactic Acid 1.9 Calcium Phosphorus Magnesium Total Bilirubin AST ALT Alkaline Phosphatase Ammonia 42 H Total Protein Albumin TSH Blood Type Blood Type Recheck Antibody Screen 12/23/17 12/23/17 06:45 11:35 WBC RBC Hgb Hct MCV MCH MCHC RDW Plt Count MPV Neut % (Auto) Lymph % (Auto) Glades % (Auto) Eos % (Auto) Baso % (Auto) Neut # (Auto) Lymph # (Auto) [place] # (Auto) Eos # (Auto) Baso # (Auto) WBC Differential Differential Comment PT INR APTT Sodium Potassium Chloride Carbon Dioxide Anion Gap BUN Creatinine Estimated GFR POC Glucose 109 128 H Random Glucose Lactic Acid Calcium Phosphorus Magnesium Total Bilirubin AST ALT Alkaline Phosphatase Ammonia Total Protein Albumin TSH Blood Type Blood Type Recheck Antibody Screen Microbiology 12/18/17 05:14 Blood - Peripheral Aerobic Blood Culture - Final No growth in 5 days 12/18/17 05:14 Blood - Peripheral Anaerobic Blood Culture - Final QNS - See aerobic report. 12/18/17 05:05 Blood - Peripheral Aerobic Blood Culture - Final No growth in 5 days 12/18/17 05:05 Blood - Peripheral Anaerobic Blood Culture - Final No growth in 5 days 12/22/17 12:55 Stool Stool Occult Blood (GEREMIAS) - Final Hemoccult positive <Suha Sotelo - Last Filed: 12/23/17 12:06> - Labs CBC & Chem 7: 12/23/17 03:50 12/23/17 03:50 Laboratory Results - last 24 hr 12/22/17 12/22/17 12/22/17 15:10 15:10 15:10 WBC RBC Hgb 9.1 L Hct 27.4 L MCV MCH MCHC RDW Plt Count MPV Neut % (Auto) Lymph % (Auto) Glades % (Auto) Eos % (Auto) Baso % (Auto) Neut # (Auto) Lymph # (Auto) [place] # (Auto) Eos # (Auto) Baso # (Auto) WBC Differential Differential Comment PT 10.8 INR 1.1 APTT 22.9 L Sodium Potassium Chloride Carbon Dioxide Anion Gap BUN Creatinine Estimated GFR POC Glucose Random Glucose Lactic Acid Calcium Phosphorus Magnesium Total Bilirubin AST ALT Alkaline Phosphatase Ammonia Total Protein Albumin TSH Blood Type A Positive Blood Type Recheck Required Antibody Screen Negative 12/22/17 12/22/17 12/22/17 16:26 16:59 20:41 WBC RBC Hgb 8.8 L Hct MCV MCH MCHC RDW Plt Count MPV Neut % (Auto) Lymph % (Auto) [place]ades % (Auto) Eos % (Auto) Baso % (Auto) Neut # (Auto) Lymph # (Auto) [place] # (Auto) Eos # (Auto) Baso # (Auto) WBC Differential Differential Comment PT INR APTT Sodium Potassium 3.9 D Chloride Carbon Dioxide Anion Gap BUN Creatinine Estimated GFR POC Glucose 132 H Random Glucose Lactic Acid Calcium Phosphorus Magnesium Total Bilirubin AST ALT Alkaline Phosphatase Ammonia Total Protein Albumin TSH Blood Type Blood Type Recheck Antibody Screen 12/23/17 12/23/17 12/23/17 00:21 03:50 03:50 WBC 19.9 H RBC 2.54 L Hgb 8.3 L Hct 25.6 L MCV 101.0 H MCH 32.8 MCHC 32.5 RDW 13.7 Plt Count 543 H D MPV 9.4 Neut % (Auto) 72.2 H Lymph % (Auto) 20.9 Glades % (Auto) 6.3 Eos % (Auto) 0.2 Baso % (Auto) 0.4 Neut # (Auto) 14.4 H Lymph # (Auto) 4.2 Glades # (Auto) 1.3 H Eos # (Auto) 0.0 Baso # (Auto) 0.1 WBC Differential . Differential Comment Auto diff final PT INR APTT Sodium 147 H Potassium 3.3 L Chloride 113 H Carbon Dioxide 24.6 Anion Gap 9 BUN 35 H Creatinine 0.67 Estimated GFR Greater than 89 POC Glucose 109 Random Glucose 105 Lactic Acid Calcium 7.8 L Phosphorus 2.0 L Magnesium 2.1 Total Bilirubin 0.4 AST 161 H ALT 413 H Alkaline Phosphatase 124 H Ammonia Total Protein 6.7 Albumin 2.3 L TSH 2.110 Blood Type Blood Type Recheck Antibody Screen 12/23/17 12/23/17 12/23/17 03:50 03:50 03:50 WBC RBC Hgb Hct MCV MCH MCHC RDW Plt Count MPV Neut % (Auto) Lymph % (Auto) [place]ades % (Auto) Eos % (Auto) Baso % (Auto) Neut # (Auto) Lymph # (Auto) [place] # (Auto) Eos # (Auto) Baso # (Auto) WBC Differential Differential Comment PT 10.7 INR 1.1 APTT 21.9 L Sodium Potassium Chloride Carbon Dioxide Anion Gap BUN Creatinine Estimated GFR POC Glucose Random Glucose Lactic Acid 1.9 Calcium Phosphorus Magnesium Total Bilirubin AST ALT Alkaline Phosphatase Ammonia 42 H Total Protein Albumin TSH Blood Type Blood Type Recheck Antibody Screen 12/23/17 12/23/17 06:45 11:35 WBC RBC Hgb Hct MCV MCH MCHC RDW Plt Count MPV Neut % (Auto) Lymph % (Auto) [place]ades % (Auto) Eos % (Auto) Baso % (Auto) Neut # (Auto) Lymph # (Auto) [place] # (Auto) Eos # (Auto) Baso # (Auto) WBC Differential Differential Comment PT INR APTT Sodium Potassium Chloride Carbon Dioxide Anion Gap BUN Creatinine Estimated GFR POC Glucose 109 128 H Random Glucose Lactic Acid Calcium Phosphorus Magnesium Total Bilirubin AST ALT Alkaline Phosphatase Ammonia Total Protein Albumin TSH Blood Type Blood Type Recheck Antibody Screen Microbiology 12/18/17 05:14 Blood - Peripheral Aerobic Blood Culture - Final No growth in 5 days 12/18/17 05:14 Blood - Peripheral Anaerobic Blood Culture - Final QNS - See aerobic report. 12/18/17 05:05 Blood - Peripheral Aerobic Blood Culture - Final No growth in 5 days 12/18/17 05:05 Blood - Peripheral Anaerobic Blood Culture - Final No growth in 5 days 12/22/17 12:55 Stool Stool Occult Blood (GEREMIAS) - Final Hemoccult positive <Jaja Wong - Last Filed: 12/23/17 13:39> Assessment and Plan - Plan Assessment: - Anemia with reports of one episode of melena H/H currently 9.05/07.4 Pt reportedly had been taking about 6 tablets of ASA daily prior to arrival because he states that and his Fentanyl patches are the only thing that helps with his pain. According to RN pt had one loose, black tarry BM earlier today, it was tested and came back Hemoccult positive. At present, pt is resting in bed, denies any nausea, vomiting, abdominal pain. 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 He currently receives everything through his PEG, according to RN he has been tolerating his tube feeding. Pt does thing that he has had previous EGD but believe it was in the 80s. Of note, he is on Plavix and ASA, states carotid stents, currently on hold. At time of my exam pt is on 6L o2 via [place] 12/23/2017, patient continues in the intensive care setting on oxygen at 6 L per nasal cannula O2 sats are labile between 91 and 95 and patient was placed on BiPAP this past a.m. for rest. Leukocytosis unspecified currently 19.6, requiring some suctioning for maintenance of his airway. Monitoring labs with special attention to his hemoglobin and coffee-ground emesis noted. PEG tube no feedings for now. Plan: Diet, PEG tube currently tube feeds being inhaled Continue to hold Plavix and aspirin EGD when more stable, still on a high amount of oxygen via [place] Monitor labs and transfuse as needed Protonix Consider EGD when patient is more stable Further recommendations to follow Patient was seen per myself and Dr. Wong, note was written on his behalf <Suha Sotelo - Last Filed: 12/23/17 12:06> - Attending Attestation As above, still unstable for EGD. Will follow up with you. <Jaja Wong - Last Filed: 12/23/17 13:39>
[2017-12-23 15:16] LABS: Hematocrit 23.5 % (39.0-51.0); Hemoglobin 7.8 gm/dL (13.0-17.0)
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
[2017-12-23 17:49] LABS: Hematocrit 23.6 % (39.0-51.0)
[2017-12-23] MEDS: Melatonin 5 MG Tablet PO PRN (20:06)
[2017-12-23] MEDS: Mirtazapine 15 MG Tablet PO SCH (20:06)
[2017-12-24] MEDS: Oral Hygiene Kit OROPHARYNG SCH ×4 (00:29→17:59)
[2017-12-24] MEDS: Piperacil/Tazo 4.5 GM Premix 4.5 GM/100 ML BAG IV.SIG SCH ×4 (00:29→20:03)
[2017-12-24] MEDS: Insulin NovoLOG Aspart Correctional Sugar Inj SQ SCH ×4 (01:11→18:49)
[2017-12-24 04:58] LABS: Baso # (Auto) 0.2 th/mm3 (0.0-0.2); Eos # (Auto) 0.3 th/mm3 (0.0-0.4); Eos % (Auto) 1.7 % (0.0-4.0); Hematocrit 22.9 % (39.0-51.0); Hemoglobin 7.8 gm/dL (13.0-17.0); Lymph # (Auto) 3.9 th/mm3 (1.0-4.8); Mean Corpuscular HGB Conc 34.2 % (32.0-36.0); Mean Corpuscular Hemoglobin 32.3 pg (27.0-34.0); Mean Corpuscular Volume 94.3 fL (80.0-100.0); Mean Platelet Volume 9.6 fL (7.0-11.0); Mono # (Auto) 0.8 th/mm3 (0.0-0.9); Mono % (Auto) 4.6 % (0.0-8.0); Neut # (Auto) 13.2 th/mm3 (1.8-7.7); Neut % (Auto) 71.7 % (16.0-70.0); Platelet Count 503 th/mm3 (150-450); Red Blood Count 2.43 mil/mm3 (4.50-5.90); Red Cell Distribution Width 16.7 % (11.6-17.2); White Blood Count 18.3 th/mm3 (4.0-11.0)
[2017-12-24 05:28] LABS: Alanine Aminotransferase 474 U/L (12-78); Albumin 2.1 g/dL (3.4-5.0); Anion Gap 9 meq/L (5-15); Aspartate Aminotransferase 199 U/L (15-37); Blood Urea Nitrogen 27 mg/dL (7-18); Calcium 7.6 mg/dL (8.5-10.1); Carbon Dioxide 23.9 meq/L (21.0-32.0); Chloride 110 meq/L (98-107); Glomerular Filtration Rate Greater Than 89 mL/min (>89); Glucose,Random 94 mg/dL (74-106); Phosphorus 2.2 mg/dL (2.5-4.9); Potassium 3.3 meq/L (3.5-5.1); Sodium 143 meq/L (136-145)
[2017-12-24 05:30] LABS: Alkaline Phosphatase 123 U/L (45-117)
[2017-12-24 05:39] LABS: Eosinophils 1 % (0-4); Lymphocytes 21 % (9-44); Metamyelocytes 1 % (0-1); Monocytes 6 % (0-8); Platelet Morphology Normal (Normal)
[2017-12-24] MEDS: KCL 20 mEq/D5W/NaCl 0.45% Inj 1,000 ML IV.CONT SCH ×2 (05:42→15:58)
[2017-12-24] MEDS: Mupirocin 2% Nasal Oint Topical Syringe EACH NARE SCH ×2 (09:00→20:02)
[2017-12-24] MEDS: clonazePAM 0.5 MG Tablet PO SCH ×3 (09:25→20:02)
[2017-12-24] MEDS: amLODIPine 10 MG Tablet PO SCH (09:25)
[2017-12-24] MEDS: Chlorhexidine 0.12% Oral Kit 15 ML UDC OROPHARYNG SCH ×2 (09:25→20:02)
[2017-12-24] MEDS: Senna/Docusate Sodium 8.6/50 MG Tablet PO SCH ×2 (09:25→20:02)
[2017-12-24] MEDS: Pantoprazole Inj 40 MG Vial IV.PUSH SCH ×2 (09:27→20:02)
--- NOTE | 2017-12-24 10:39 | P.PNID ---
Subjective Remarks: Mr. 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 Patient was brought to the emergency room by EMS on 12/11/17 after he was found unresponsive at home with copious oral secretions identified as tube feeding. When EMS arrived patient had spontaneous respirations, palpable pulse and was hypotensive with SBP in the 90s , and decreased level of consciousness. O2 saturation was 60% at scene, and he was intubated and copius secretions were suctioned. Patient is dysphagic, he only takes his medications and feedings through a PEG tube. Per ER report patient was last seen normal in the morning on 12/11 and it is not known how long he had been unresponsive. Patient was found with x3 patches of 25mcg Fentanyl patches on him. According to his he is supposed to be on Fentanyl 25mcg for 72 hrs. 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 He does not follow with an oncologist but he follows with ENT Dr. Gonzalez. ER Course: * Vital signs: Temperature 97.8F, pulse 78, respirations 20, BP 92/51, O2 saturation 100% * Chest x-ray revealed underinflation with perihilar interstitial prominence which could be related to the underinflation could represent pulmonary edema. No airspace consolidation is identified. * ABG results pH 7.25, PCO2 45, PO2 100, bicarb 19, base excess -7, O2 sats 95% on vent settings PRVC/AC14/550/IT 1.0/8/100% * Laboratory workup revealed WBC 9.8, hemoglobin 13.4, hematocrit 38.7, platelet count 194, sodium 141, potassium 3.2, BUN/creatinine 23/1.37, lactic acid 12.4, calcium 7.4, AST 152, ALT 136, alkaline phosphatase 85, total protein 6.8, albumin 3.2, troponin 0 0.04, T10 0.7, INR 1.1, APTT 26.8. CT cervical spine on 12/12/17 revealed no acute cervical spine abnormality. Head CT on 12/12/17 revealed no acute intracranial abnormality. Laboratory workup today revealing WBC 10.5, hemoglobin 12.8, hematocrit 37.0, platelet count 208, Cr 0.83. Infectious disease is consulted for evaluation and Mment of recurrent aspiration or HCAP in an Immune compromised patient. Overnight events reviewed No fevers No rash No diarrhea On Room air Speech not clear. Antibiotics: Zosyn IV Lines: Lines ok Past Medical History: reviewed Allergies/Adverse Reactions: Allergies morphine Allergy (Intermediate, Verified 03/04/17 21:32) Confusion HALLICINATES hydromorphone Adverse Reaction (Intermediate, Verified 12/11/17 22:23) Confusion HALLUCIATES CONFUSION Objective Vital Signs 12/23/17 10:49 12/23/17 12:00 12/23/17 14:00 Temperature 98.5 F Pulse Rate 101 H 94 H 97 H Respiratory Rate 20 23 Blood Pressure 113/58 L Pulse Oximetry 91 L 12/23/17 16:00 12/23/17 17:46 12/23/17 18:00 Temperature 98.1 F Pulse Rate 93 H 112 H 122 H Respiratory Rate 24 18 Blood Pressure 127/60 Pulse Oximetry 95 12/23/17 18:47 12/23/17 19:02 12/23/17 20:00 Temperature Pulse Rate 106 H 119 H Respiratory Rate 25 H 45 H Blood Pressure 120/57 L 164/75 H Pulse Oximetry 90 L 92 L 88 L 12/23/17 22:00 12/23/17 23:50 12/24/17 00:00 Temperature 99.2 F Pulse Rate 103 H 100 H Respiratory Rate 29 H Blood Pressure 140/68 Pulse Oximetry 95 91 L 12/24/17 00:01 12/24/17 01:11 12/24/17 02:00 Temperature Pulse Rate 99 H 97 H Respiratory Rate 24 17 Blood Pressure Pulse Oximetry 12/24/17 04:00 12/24/17 04:49 12/24/17 06:00 Temperature 99.4 F Pulse Rate 103 H 100 H 104 H Respiratory Rate 20 22 Blood Pressure 140/84 Pulse Oximetry 92 L 12/24/17 09:11 Temperature Pulse Rate Respiratory Rate Blood Pressure Pulse Oximetry 95 Intake & Output 12/23/17 12/24/17 12/24/17 18:59 06:59 18:59 Intake Total 1200 / 1200 2860 / 2860 100 / 100 Output Total 1610 / 1610 1000 / 1000 Balance -410 / -410 1860 / 1860 100 / 100 Weight 81 kg Intake: IV 1200 / 1200 2460 / 2460 100 / 100 D5W/1/2NS + KCL 20 mEq Inj 1, 1000 / 1000 2000 / 2000 000 ML @ 100 mls/hr IV.CONT . Q10H [facility] Rx#:[id number] Zosyn 4.5 GM Premix 4.5 gm In 200 / 200 200 / 200 100 / 100 100 ml @ 200 mls/hr IV.SIG Q6H [facility] Rx#:[id number] Potassium Phosphate Inj 30 MMOL 260 / 260 In NS Inj 250 ML @ 43.333 mls/ hr IV.SIG ONCE ONE Rx#:[id number] Oral 0 / 0 Intake (Blood Product) Amt 0 / 0 400 / 400 Rbc As-3 Leukoreduced Unit 0 / 0 400 / 400 [id number] Output: Urine 200 / 200 Urine Amount (Catheter) 1610 / 1610 800 / 800 Indwelling Urethral Catheter 1610 / 1610 Straight 800 / 800 Other: Date of Last Bowel Movement 12/23/17 12/23/17 # Bowel Movements 3 12/18/17 05:14 Blood - Peripheral Aerobic Blood Culture - Final No growth in 5 days 12/18/17 05:14 Blood - Peripheral Anaerobic Blood Culture - Final QNS - See aerobic report. 12/18/17 05:05 Blood - Peripheral Aerobic Blood Culture - Final No growth in 5 days 12/18/17 05:05 Blood - Peripheral Anaerobic Blood Culture - Final No growth in 5 days 12/22/17 12:55 Stool Stool Occult Blood (GEREMIAS) - Final Hemoccult positive Lab - Hematology Results 12/22/17 12/22/17 12/23/17 15:10 20:41 03:50 WBC 19.9 H RBC 2.54 L Hgb 9.1 L 8.8 L 8.3 L Hct 27.4 L 25.6 L MCV 101.0 H MCH 32.8 MCHC 32.5 RDW 13.7 Plt Count 543 H D MPV 9.4 Prelim Diff (Auto) Neut % (Auto) 72.2 H Lymph % (Auto) 20.9 [place] % (Auto) 6.3 Eos % (Auto) 0.2 Baso % (Auto) 0.4 Neut # (Auto) 14.4 H Lymph # (Auto) 4.2 [place] # (Auto) 1.3 H Eos # (Auto) 0.0 Baso # (Auto) 0.1 WBC Differential . Seg Neuts % (Manual) Band Neuts % (Manual) Lymphocytes % (Manual) Monocytes % (Manual) Eosinophils % (Manual) Basophils % (Manual) Metamyelocytes % (Man) Abs Neuts (Manual) Differential Comment Auto diff final Platelet Estimate Platelet Morphology 12/23/17 12/23/17 12/24/17 14:44 17:39 03:41 WBC 18.3 H RBC 2.43 L Hgb 7.8 L 8.0 L 7.8 L Hct 23.5 L 23.6 L 22.9 L MCV 94.3 D MCH 32.3 MCHC 34.2 RDW 16.7 D Plt Count 503 H MPV 9.6 Prelim Diff (Auto) Slide review pending Neut % (Auto) 71.7 H Lymph % (Auto) 21.0 [place] % (Auto) 4.6 Eos % (Auto) 1.7 Baso % (Auto) 1.0 Neut # (Auto) 13.2 H Lymph # (Auto) 3.9 [place] # (Auto) 0.8 Eos # (Auto) 0.3 Baso # (Auto) 0.2 WBC Differential Manual diff final Seg Neuts % (Manual) 68 Band Neuts % (Manual) 2 Lymphocytes % (Manual) 21 Monocytes % (Manual) 6 Eosinophils % (Manual) 1 Basophils % (Manual) 1 Metamyelocytes % (Man) 1 Abs Neuts (Manual) 13.0 H Differential Comment . Platelet Estimate High H Platelet Morphology Normal Lab - Chemistry Results 12/22/17 12/22/17 12/22/17 11:07 16:26 16:59 Sodium Potassium 3.9 D Chloride Carbon Dioxide Anion Gap BUN Creatinine Estimated GFR POC Glucose 156 H 132 H Random Glucose Lactic Acid Calcium Phosphorus Magnesium Total Bilirubin AST ALT Alkaline Phosphatase Ammonia Total Protein Albumin TSH 12/23/17 12/23/17 12/23/17 00:21 03:50 03:50 Sodium 147 H Potassium 3.3 L Chloride 113 H Carbon Dioxide 24.6 Anion Gap 9 BUN 35 H Creatinine 0.67 Estimated GFR Greater than 89 POC Glucose 109 Random Glucose 105 Lactic Acid 1.9 Calcium 7.8 L Phosphorus 2.0 L Magnesium 2.1 Total Bilirubin 0.4 AST 161 H ALT 413 H Alkaline Phosphatase 124 H Ammonia Total Protein 6.7 Albumin 2.3 L TSH 2.110 12/23/17 12/23/17 12/23/17 03:50 06:45 11:35 Sodium Potassium Chloride Carbon Dioxide Anion Gap BUN Creatinine Estimated GFR POC Glucose 109 128 H Random Glucose Lactic Acid Calcium Phosphorus Magnesium Total Bilirubin AST ALT Alkaline Phosphatase Ammonia 42 H Total Protein Albumin TSH 12/23/17 12/24/17 12/24/17 18:08 00:39 03:41 Sodium 143 Potassium 3.3 L Chloride 110 H Carbon Dioxide 23.9 Anion Gap 9 BUN 27 H Creatinine 0.61 Estimated GFR Greater than 89 POC Glucose 138 H 116 H Random Glucose 94 Lactic Acid Calcium 7.6 L Phosphorus 2.2 L Magnesium 2.0 Total Bilirubin 0.4 AST 199 H ALT 474 H Alkaline Phosphatase 123 H Ammonia Total Protein 6.0 L D Albumin 2.1 L TSH 12/24/17 05:52 Sodium Potassium Chloride Carbon Dioxide Anion Gap BUN Creatinine Estimated GFR POC Glucose 167 H Random Glucose Lactic Acid Calcium Phosphorus Magnesium Total Bilirubin AST ALT Alkaline Phosphatase Ammonia Total Protein Albumin TSH Imaging: ITS Impressions Cervical Spine CT 12/12/17 00:00 CONCLUSION: No acute cervical spine abnormality is identified. Head CTA 12/12/17 00:00 CONCLUSION: 1. Negative CTA Head. Neck CTA 12/12/17 00:00 CONCLUSION: 1. Atelectatic calcifications and areas of ulceration involving the origin of the right internal carotid artery with approximate 70-80% stenosis right at the takeoff of the right ICA prior to the start of the patient's internal coronary stent. Head CT 12/12/17 12:29 CONCLUSION: 1. Subtle areas of low attenuation are now seen in the right frontal and occipital regions of concern for areas of evolving infarction. There is no hemorrhage or mass effect. . Chest X-Ray 12/20/17 00:00 CONCLUSION: Continued prominence of the right [place] with continued infiltrate predominantly within the right lung. Changes are stable compared to previous. At some point, CT imaging would be of benefit to exclude right hilar mass if this has not already been performed. Chest CTA 12/21/17 00:00 CONCLUSION: 1. Apparent right subclavian artery. 2. Mildly enlarged subcarinal and right hilar lymph nodes. adenopathy. 3. Scattered pulmonary infiltrates including right lower lobe consolidation with air bronchogram formation. 4. Atherosclerosis. 5. No evidence for pulmonary embolism. Physical Exam: GENERAL: Well-nourished well-developed, not in acute distress SKIN: Cool and dry, no generalized rash HEAD: Atraumatic. Normocephalic. No temporal or scalp tenderness. EYES: Pupils equal round and reactive. Scleral icterus. No injection or drainage. No petechia ENT: Right side hemiglossectomy, voice garbled and not clear. NECK: Surgical scar intact with no e.o infection CARDIOVASCULAR: HS audible. RESPIRATORY: Clear to auscultation bilaterally. GASTROINTESTINAL: Abdomen soft nontender. MUSCULOSKELETAL: Extremities without clubbing, cyanosis. NEUROLOGICAL: Alert oriented 3. Nonfocal. Psych cooperative PEG tube site ok. IV line sites ok. Assessment and Plan - Plan Aspiration Pneumonia on admission HCAP E.coli, PSAE and Strep lung infection Acute resp failure on admission ? due to excessive fentanyl patch dose. Head neck cancer ? in remission Recs Continue Zosyn IV Follow cultures Follow clinical course. Will check Procalcitonin on Tuesday. Patient had an episode of Upper GI bleed.
--- NOTE | 2017-12-24 10:51 | P.PNGI ---
Subjective Interval history: Pt is resting in bed, no melena today, no bm, PEG tube with coffee ground like substance in the tube, however, according to nurse, no coffee ground residuals, was able to flush and give meds with persistent of the coffee ground like substance in the tube, could be just discolorations in tubing. Still on 6 L of o2 <Kindra Zhang - Last Filed: 12/24/17 10:44> Physical Exam Vital signs: Vital Signs 12/23/17 10:49 12/23/17 12:00 12/23/17 14:00 Temperature 98.5 F Pulse Rate 101 H 94 H 97 H Respiratory Rate 20 23 Blood Pressure 113/58 L Pulse Oximetry 91 L 12/23/17 16:00 12/23/17 17:46 12/23/17 18:00 Temperature 98.1 F Pulse Rate 93 H 112 H 122 H Respiratory Rate 24 18 Blood Pressure 127/60 Pulse Oximetry 95 12/23/17 18:47 12/23/17 19:02 12/23/17 20:00 Temperature Pulse Rate 106 H 119 H Respiratory Rate 25 H 45 H Blood Pressure 120/57 L 164/75 H Pulse Oximetry 90 L 92 L 88 L 12/23/17 22:00 12/23/17 23:50 12/24/17 00:00 Temperature 99.2 F Pulse Rate 103 H 100 H Respiratory Rate 29 H Blood Pressure 140/68 Pulse Oximetry 95 91 L 12/24/17 00:01 12/24/17 01:11 12/24/17 02:00 Temperature Pulse Rate 99 H 97 H Respiratory Rate 24 17 Blood Pressure Pulse Oximetry 12/24/17 04:00 12/24/17 04:49 12/24/17 06:00 Temperature 99.4 F Pulse Rate 103 H 100 H 104 H Respiratory Rate 20 22 Blood Pressure 140/84 Pulse Oximetry 92 L 12/24/17 09:11 Temperature Pulse Rate Respiratory Rate Blood Pressure Pulse Oximetry 95 Intake & Output 12/23/17 12/24/17 12/24/17 18:59 06:59 18:59 Intake Total 1200 / 1200 2860 / 2860 100 / 100 Output Total 1610 / 1610 1000 / 1000 Balance -410 / -410 1860 / 1860 100 / 100 Weight 81 kg Intake: IV 1200 / 1200 2460 / 2460 100 / 100 D5W/1/2NS + KCL 20 mEq Inj 1, 1000 / 1000 2000 / 2000 000 ML @ 100 mls/hr IV.CONT . Q10H [facility] Rx#:[id number] Zosyn 4.5 GM Premix 4.5 gm In 200 / 200 200 / 200 100 / 100 100 ml @ 200 mls/hr IV.SIG Q6H [facility] Rx#:[id number] Potassium Phosphate Inj 30 MMOL 260 / 260 In NS Inj 250 ML @ 43.333 mls/ hr IV.SIG ONCE ONE Rx#:[id number] Oral 0 / 0 Intake (Blood Product) Amt 0 / 0 400 / 400 Rbc As-3 Leukoreduced Unit 0 / 0 400 / 400 [id number] Output: Urine 200 / 200 Urine Amount (Catheter) 1610 / 1610 800 / 800 Indwelling Urethral Catheter 1610 / 1610 Straight 800 / 800 Other: Date of Last Bowel Movement 12/23/17 12/23/17 # Bowel Movements 3 - Constitutional no acute distress - Routine HEENT Exam Head: Present: normocephalic - Routine Respiratory Exam Present: CTA bilaterally - Routine Cardiovascular Exam Present: RRR - Routine Abdominal Exam Present: soft, normoactive bowel sounds. Absent: tenderness, distended Comments: PEG tube - Routine Extremities Exam Absent: edema - Routine Skin Exam Present: intact, dry. Absent: jaundice - Routine Neurological Exam Present: alert, oriented X3 - Urinary Catheter Management Indwelling Urethral Catheter Cath placed during this visit: yes, but has since been removed by the nurse Reason for continuing: Acute urinary retention Insertion date: 12/20/17 Insertion time: 14:52 Removal date: 12/22/17 Removal time: 17:30 Straight Cath placed during this visit: no <Kindra Zhang - Last Filed: 12/24/17 10:44> Vital signs: Vital Signs 12/23/17 18:00 12/23/17 18:47 12/23/17 19:02 Temperature Pulse Rate 122 H 106 H Respiratory Rate 25 H Blood Pressure 120/57 L Pulse Oximetry 90 L 92 L 12/23/17 20:00 12/23/17 22:00 12/23/17 23:50 Temperature Pulse Rate 119 H 103 H Respiratory Rate 45 H Blood Pressure 164/75 H Pulse Oximetry 88 L 95 12/24/17 00:00 12/24/17 00:01 12/24/17 01:11 Temperature 99.2 F Pulse Rate 100 H 99 H Respiratory Rate 29 H 24 17 Blood Pressure 140/68 Pulse Oximetry 91 L 12/24/17 02:00 12/24/17 04:00 12/24/17 04:49 Temperature 99.4 F Pulse Rate 97 H 103 H 100 H Respiratory Rate 20 22 Blood Pressure 140/84 Pulse Oximetry 92 L 12/24/17 06:00 12/24/17 08:00 12/24/17 09:11 Temperature 97.3 F L Pulse Rate 104 H 97 H Respiratory Rate 25 H Blood Pressure 124/58 L Pulse Oximetry 98 95 12/24/17 10:00 12/24/17 11:07 12/24/17 12:00 Temperature 98.2 F Pulse Rate 105 H 97 H Respiratory Rate 18 15 Blood Pressure 148/70 H Pulse Oximetry 97 12/24/17 14:00 12/24/17 15:52 12/24/17 16:00 Temperature Pulse Rate 100 H 97 H Respiratory Rate 30 H Blood Pressure Pulse Oximetry 12/24/17 16:58 Temperature Pulse Rate 94 H Respiratory Rate 20 Blood Pressure Pulse Oximetry Intake & Output 12/23/17 12/24/17 12/24/17 18:59 06:59 18:59 Intake Total 1200 / 1200 2860 / 2860 1200 / 1200 Output Total 1610 / 1610 1000 / 1000 Balance -410 / -410 1860 / 1860 1200 / 1200 Weight 81 kg Intake: IV 1200 / 1200 2460 / 2460 1200 / 1200 D5W/1/2NS + KCL 20 mEq Inj 1, 1000 / 1000 2000 / 2000 1000 / 1000 000 ML @ 100 mls/hr IV.CONT . Q10H [facility] Rx#:[id number] Zosyn 4.5 GM Premix 4.5 gm In 200 / 200 200 / 200 200 / 200 100 ml @ 200 mls/hr IV.SIG Q6H [facility] Rx#:[id number] Potassium Phosphate Inj 30 MMOL 260 / 260 In NS Inj 250 ML @ 43.333 mls/ hr IV.SIG ONCE ONE Rx#:[id number] Oral 0 / 0 Intake (Blood Product) Amt 0 / 0 400 / 400 Rbc As-3 Leukoreduced Unit 0 / 0 400 / 400 [id number] Output: Urine 200 / 200 Urine Amount (Catheter) 1610 / 1610 800 / 800 Indwelling Urethral Catheter 1610 / 1610 Straight 800 / 800 Other: Date of Last Bowel Movement 12/23/17 12/23/17 12/23/17 # Bowel Movements 3 - Urinary Catheter Management Indwelling Urethral Catheter Cath placed during this visit: no Straight Cath placed during this visit: no <Kathe Teixeira - Last Filed: 12/24/17 17:52> Results - Labs CBC & Chem 7: 12/24/17 03:41 12/24/17 03:41 Laboratory Results - last 24 hr 12/23/17 12/23/17 12/23/17 11:35 14:44 16:50 WBC RBC Hgb 7.8 L Hct 23.5 L MCV MCH MCHC RDW Plt Count MPV Prelim Diff (Auto) Neut % (Auto) Lymph % (Auto) [place] % (Auto) Eos % (Auto) Baso % (Auto) Neut # (Auto) Lymph # (Auto) [place] # (Auto) Eos # (Auto) Baso # (Auto) WBC Differential Seg Neuts % (Manual) Band Neuts % (Manual) Lymphocytes % (Manual) Monocytes % (Manual) Eosinophils % (Manual) Basophils % (Manual) Metamyelocytes % (Man) Abs Neuts (Manual) Differential Comment Platelet Estimate Platelet Morphology Sodium Potassium Chloride Carbon Dioxide Anion Gap BUN Creatinine Estimated GFR POC Glucose 128 H Random Glucose Calcium Phosphorus Magnesium Total Bilirubin AST ALT Alkaline Phosphatase Total Protein Albumin MTS Gel Crossmatch See Detail Bld Prod Order Comment 12/23/17 12/23/17 12/24/17 17:39 18:08 00:39 WBC RBC Hgb 8.0 L Hct 23.6 L MCV MCH MCHC RDW Plt Count MPV Prelim Diff (Auto) Neut % (Auto) Lymph % (Auto) [place] % (Auto) Eos % (Auto) Baso % (Auto) Neut # (Auto) Lymph # (Auto) [place] # (Auto) Eos # (Auto) Baso # (Auto) WBC Differential Seg Neuts % (Manual) Band Neuts % (Manual) Lymphocytes % (Manual) Monocytes % (Manual) Eosinophils % (Manual) Basophils % (Manual) Metamyelocytes % (Man) Abs Neuts (Manual) Differential Comment Platelet Estimate Platelet Morphology Sodium Potassium Chloride Carbon Dioxide Anion Gap BUN Creatinine Estimated GFR POC Glucose 138 H 116 H Random Glucose Calcium Phosphorus Magnesium Total Bilirubin AST ALT Alkaline Phosphatase Total Protein Albumin MTS Gel Crossmatch Bld Prod Order Comment 12/24/17 12/24/17 12/24/17 03:41 03:41 05:52 WBC 18.3 H RBC 2.43 L Hgb 7.8 L Hct 22.9 L MCV 94.3 D MCH 32.3 MCHC 34.2 RDW 16.7 D Plt Count 503 H MPV 9.6 Prelim Diff (Auto) Slide review pending Neut % (Auto) 71.7 H Lymph % (Auto) 21.0 [place] % (Auto) 4.6 Eos % (Auto) 1.7 Baso % (Auto) 1.0 Neut # (Auto) 13.2 H Lymph # (Auto) 3.9 [place] # (Auto) 0.8 Eos # (Auto) 0.3 Baso # (Auto) 0.2 WBC Differential Manual diff final Seg Neuts % (Manual) 68 Band Neuts % (Manual) 2 Lymphocytes % (Manual) 21 Monocytes % (Manual) 6 Eosinophils % (Manual) 1 Basophils % (Manual) 1 Metamyelocytes % (Man) 1 Abs Neuts (Manual) 13.0 H Differential Comment . Platelet Estimate High H Platelet Morphology Normal Sodium 143 Potassium 3.3 L Chloride 110 H Carbon Dioxide 23.9 Anion Gap 9 BUN 27 H Creatinine 0.61 Estimated GFR Greater than 89 POC Glucose 167 H Random Glucose 94 Calcium 7.6 L Phosphorus 2.2 L Magnesium 2.0 Total Bilirubin 0.4 AST 199 H ALT 474 H Alkaline Phosphatase 123 H Total Protein 6.0 L D Albumin 2.1 L MTS Gel Crossmatch Bld Prod Order Comment Microbiology 12/18/17 05:14 Blood - Peripheral Aerobic Blood Culture - Final No growth in 5 days 12/18/17 05:14 Blood - Peripheral Anaerobic Blood Culture - Final QNS - See aerobic report. 12/18/17 05:05 Blood - Peripheral Aerobic Blood Culture - Final No growth in 5 days 12/18/17 05:05 Blood - Peripheral Anaerobic Blood Culture - Final No growth in 5 days <Kindra Zhang - Last Filed: 12/24/17 10:44> - Labs CBC & Chem 7: 12/24/17 11:30 12/24/17 03:41 Laboratory Results - last 24 hr 12/23/17 12/23/17 12/24/17 16:50 18:08 00:39 WBC RBC Hgb Hct MCV MCH MCHC RDW Plt Count MPV Prelim Diff (Auto) Neut % (Auto) Lymph % (Auto) [place] % (Auto) Eos % (Auto) Baso % (Auto) Neut # (Auto) Lymph # (Auto) [place] # (Auto) Eos # (Auto) Baso # (Auto) WBC Differential Seg Neuts % (Manual) Band Neuts % (Manual) Lymphocytes % (Manual) Monocytes % (Manual) Eosinophils % (Manual) Basophils % (Manual) Metamyelocytes % (Man) Abs Neuts (Manual) Differential Comment Platelet Estimate Platelet Morphology Sodium Potassium Chloride Carbon Dioxide Anion Gap BUN Creatinine Estimated GFR POC Glucose 138 H 116 H Random Glucose Calcium Phosphorus Magnesium Total Bilirubin AST ALT Alkaline Phosphatase Total Creatine Kinase Total Protein Albumin Hepatitis A IgM Ab Hep Bs Antigen Hep B Core IgM Ab Hep C IgG Ab MTS Gel Crossmatch See Detail Bld Prod Order Comment 12/24/17 12/24/17 12/24/17 03:41 03:41 05:52 WBC 18.3 H RBC 2.43 L Hgb 7.8 L Hct 22.9 L MCV 94.3 D MCH 32.3 MCHC 34.2 RDW 16.7 D Plt Count 503 H MPV 9.6 Prelim Diff (Auto) Slide review pending Neut % (Auto) 71.7 H Lymph % (Auto) 21.0 [place] % (Auto) 4.6 Eos % (Auto) 1.7 Baso % (Auto) 1.0 Neut # (Auto) 13.2 H Lymph # (Auto) 3.9 [place] # (Auto) 0.8 Eos # (Auto) 0.3 Baso # (Auto) 0.2 WBC Differential Manual diff final Seg Neuts % (Manual) 68 Band Neuts % (Manual) 2 Lymphocytes % (Manual) 21 Monocytes % (Manual) 6 Eosinophils % (Manual) 1 Basophils % (Manual) 1 Metamyelocytes % (Man) 1 Abs Neuts (Manual) 13.0 H Differential Comment . Platelet Estimate High H Platelet Morphology Normal Sodium 143 Potassium 3.3 L Chloride 110 H Carbon Dioxide 23.9 Anion Gap 9 BUN 27 H Creatinine 0.61 Estimated GFR Greater than 89 POC Glucose 167 H Random Glucose 94 Calcium 7.6 L Phosphorus 2.2 L Magnesium 2.0 Total Bilirubin 0.4 AST 199 H ALT 474 H Alkaline Phosphatase 123 H Total Creatine Kinase Total Protein 6.0 L D Albumin 2.1 L Hepatitis A IgM Ab Hep Bs Antigen Hep B Core IgM Ab Hep C IgG Ab MTS Gel Crossmatch Bld Prod Order Comment 12/24/17 12/24/17 12/24/17 11:30 12:37 12:47 WBC RBC Hgb 7.3 L Hct 21.8 L MCV MCH MCHC RDW Plt Count MPV Prelim Diff (Auto) Neut % (Auto) Lymph % (Auto) [place] % (Auto) Eos % (Auto) Baso % (Auto) Neut # (Auto) Lymph # (Auto) [place] # (Auto) Eos # (Auto) Baso # (Auto) WBC Differential Seg Neuts % (Manual) Band Neuts % (Manual) Lymphocytes % (Manual) Monocytes % (Manual) Eosinophils % (Manual) Basophils % (Manual) Metamyelocytes % (Man) Abs Neuts (Manual) Differential Comment Platelet Estimate Platelet Morphology Sodium Potassium Chloride Carbon Dioxide Anion Gap BUN Creatinine Estimated GFR POC Glucose 138 H Random Glucose Calcium Phosphorus Magnesium Total Bilirubin AST ALT Alkaline Phosphatase Total Creatine Kinase Total Protein Albumin Hepatitis A IgM Ab Hep Bs Antigen Hep B Core IgM Ab Hep C IgG Ab MTS Gel Crossmatch See Detail Bld Prod Order Comment 12/24/17 12/24/17 14:28 14:28 WBC RBC Hgb Hct MCV MCH MCHC RDW Plt Count MPV Prelim Diff (Auto) Neut % (Auto) Lymph % (Auto) [place] % (Auto) Eos % (Auto) Baso % (Auto) Neut # (Auto) Lymph # (Auto) [place] # (Auto) Eos # (Auto) Baso # (Auto) WBC Differential Seg Neuts % (Manual) Band Neuts % (Manual) Lymphocytes % (Manual) Monocytes % (Manual) Eosinophils % (Manual) Basophils % (Manual) Metamyelocytes % (Man) Abs Neuts (Manual) Differential Comment Platelet Estimate Platelet Morphology Sodium Potassium Chloride Carbon Dioxide Anion Gap BUN Creatinine Estimated GFR POC Glucose Random Glucose Calcium Phosphorus Magnesium Total Bilirubin AST ALT Alkaline Phosphatase Total Creatine Kinase 35 L Total Protein Albumin Hepatitis A IgM Ab Nonreactive Hep Bs Antigen Nonreactive Hep B Core IgM Ab Nonreactive Hep C IgG Ab Reactive H MTS Gel Crossmatch Bld Prod Order Comment - Imaging Impressions Liver Ultrasound 12/24/17 00:00 CONCLUSION: 1. Negative ultrasound liver. <Kathe Teixeira - Last Filed: 12/24/17 17:52> Assessment and Plan - Plan Assessment: - Anemia with reports of one episode of melena H/H currently 9.05/07.4 Pt reportedly had been taking about 6 tablets of ASA daily prior to arrival because he states that and his Fentanyl patches are the only thing that helps with his pain. According to RN pt had one loose, black tarry BM earlier today, it was tested and came back Hemoccult positive. At present, pt is resting in bed, denies any nausea, vomiting, abdominal pain. 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 He currently receives everything through his PEG, according to RN he has been tolerating his tube feeding. Pt does thing that he has had previous EGD but believe it was in the 80s. Of note, he is on Plavix and ASA, states carotid stents, currently on hold. At time of my exam pt is on 6L o2 via [place] 12/23/2017, patient continues in the intensive care setting on oxygen at 6 L per nasal cannula O2 sats are labile between 91 and 95 and patient was placed on BiPAP this past a.m. for rest. Leukocytosis unspecified currently 19.6, requiring some suctioning for maintenance of his airway. Monitoring labs with special attention to his hemoglobin and coffee-ground emesis noted. PEG tube no feedings for now. 12/24/17 no melena today, no bm, PEG tube with coffee ground like substance in the tube, however, according to nurse, no coffee ground residuals, was able to flush and give meds with persistent of the coffee ground like substance in the tube, could be just discolorations in tubing. Still on 6 L of o2 hgb today is 7.8 Plan: Resume TF Continue to hold Plavix and aspirin EGD when more stable, still on a high amount of oxygen via [place] Monitor labs and transfuse as needed Protonix Further recommendations to follow Patient was seen by myself and Dr. Teixeira <Kindra Zhang - Last Filed: 12/24/17 10:44> - Attending Attestation seen, examined agree with above <Kathe Teixeira - Last Filed: 12/24/17 17:52>
--- NOTE | 2017-12-24 11:39 | P.PNCC ---
Subjective Subjective Remarks/Hospital Course: 67-year-old male with past medical history of head and neck cancer presents from home after being found unresponsive. Patient was found by EMS to have spontaneous respirations palpable pulse and blood pressure but markedly decreased level of consciousness, hypotensive with large amount of tube feeding contents in the oral cavity. Patient has history of head neck cancer and takes no oral medications takes all medications and feedings through PEG tube. Patient was last seen normal approximately at breakfast time on Tuesday and then family members found him unresponsive. Unknown downtime. Upon EMS arrival patient was assessed and suctioned and initial O2 saturations were 60% patient was placed on supplemental oxygen with improved ventilations and then subsequently intubated with a 7.5 endotracheal tube. Per EMS copious amounts of suctioning was performed and large amounts of tube feeding were suctioned. Patient presents now with endotracheal tube in place bilateral breath sounds to auscultation with bag valve ventilation and normotensive upon EMS presentation however initial blood pressure here mildly hypotensive with systolic pressure of 90 mmHg. Patient remains unresponsive. Family members not available. Patient with known allergies to narcotics. No other medical history is available. 12/12: Afebrile. Currently on propofol and fentanyl drips. Not really moving his left upper lower extremity. CT brain with CT angiogram brain ordered. Cannot do MRI due to retained metal metal in eye according to . 12/13: Sedated, arousable, orally intubated on mechanical ventilation 12/14: Sedated, arousable, orally intubated on mechanical ventilation. 12/15: Extubated yesterday, on nasal cannula tolerating well. Precedex to be titrated off this morning. Fentanyl patch resumed yesterday. Patient is awake and alert, knows he is in the hospital. He recognizes his family members. Minimal weakness on the left side. Moving right side well. Tolerating PEG feeds. ___ 12/17: Patient transferred to hospitalist service yesterday, but this morning was again found to be in respiratory distress. Concern for recurrent aspiration as he had high tube feed residuals via PEG. [place] [facility] [place] 12/18: Patient tolerated bipap well yesterday, had some agitation overnight which improved with seroquel. 12/19: back on NC o2. clinically improving. denies complaints. SOB improving. 12/20: Fluctuating mental status. Fentanyl patch discontinued today. Patient placed on BiPAP intermittently. Started Precedex for agitation. 12/21: Resting comfortably in bed on nasal cannula. Currently on BiPAP. 12/22: Afebrile. Tolerated BiPAP overnight. Large black BM today. Holding aspirin and clopidogrel. Holding enoxaparin. Stat CBC and Hemoccult ordered. And coags. Appears clinically stable. 12/23: Remains on 6 L nasal cannula. Hemoglobin currently 8.3. PEG tube currently to gravity.. Replacing potassium phosphorus. Subjective 12/24: Remains on 6 L nasal cannula. Transfuse 1 unit PRBCs overnight. Hemoglobin currently 7.8. GI okayed restarting tube feeds today. Recommend holding clopidogrel and aspirin. More pleasant and mentation much improved over the past 72 hours. Objective Vital Signs / I&O: Vital Signs 12/23/17 12:00 12/23/17 14:00 12/23/17 16:00 Temperature 98.5 F 98.1 F Pulse Rate 94 H 97 H 93 H Respiratory Rate 23 24 Blood Pressure 113/58 L 127/60 Pulse Oximetry 91 L 95 12/23/17 17:46 12/23/17 18:00 12/23/17 18:47 Temperature Pulse Rate 112 H 122 H 106 H Respiratory Rate 18 25 H Blood Pressure 120/57 L Pulse Oximetry 90 L 12/23/17 19:02 12/23/17 20:00 12/23/17 22:00 Temperature Pulse Rate 119 H 103 H Respiratory Rate 45 H Blood Pressure 164/75 H Pulse Oximetry 92 L 88 L 12/23/17 23:50 12/24/17 00:00 12/24/17 00:01 Temperature 99.2 F Pulse Rate 100 H 99 H Respiratory Rate 29 H 24 Blood Pressure 140/68 Pulse Oximetry 95 91 L 12/24/17 01:11 12/24/17 02:00 12/24/17 04:00 Temperature 99.4 F Pulse Rate 97 H 103 H Respiratory Rate 17 20 Blood Pressure 140/84 Pulse Oximetry 92 L 12/24/17 04:49 12/24/17 06:00 12/24/17 09:11 Temperature Pulse Rate 100 H 104 H Respiratory Rate 22 Blood Pressure Pulse Oximetry 95 12/24/17 11:07 Temperature Pulse Rate Respiratory Rate 18 Blood Pressure Pulse Oximetry Intake & Output 12/23/17 12/24/17 12/24/17 18:59 06:59 18:59 Intake Total 1200 / 1200 2860 / 2860 100 / 100 Output Total 1610 / 1610 1000 / 1000 Balance -410 / -410 1860 / 1860 100 / 100 Weight 81 kg Intake: IV 1200 / 1200 2460 / 2460 100 / 100 D5W/1/2NS + KCL 20 mEq Inj 1, 1000 / 1000 2000 / 2000 000 ML @ 100 mls/hr IV.CONT . Q10H [facility] Rx#:[id number] Zosyn 4.5 GM Premix 4.5 gm In 200 / 200 200 / 200 100 / 100 100 ml @ 200 mls/hr IV.SIG Q6H [facility] Rx#:[id number] Potassium Phosphate Inj 30 MMOL 260 / 260 In NS Inj 250 ML @ 43.333 mls/ hr IV.SIG ONCE ONE Rx#:[id number] Oral 0 / 0 Intake (Blood Product) Amt 0 / 0 400 / 400 Rbc As-3 Leukoreduced Unit 0 / 0 400 / 400 [id number] Output: Urine 200 / 200 Urine Amount (Catheter) 1610 / 1610 800 / 800 Indwelling Urethral Catheter 1610 / 1610 Straight 800 / 800 Other: Date of Last Bowel Movement 12/23/17 12/23/17 # Bowel Movements 3 Result Diagrams: 12/24/17 11:30 12/24/17 03:41 Other Results: Microbiology 12/18/17 05:14 Blood - Peripheral Aerobic Blood Culture - Final No growth in 5 days 12/18/17 05:14 Blood - Peripheral Anaerobic Blood Culture - Final QNS - See aerobic report. 12/18/17 05:05 Blood - Peripheral Aerobic Blood Culture - Final No growth in 5 days 12/18/17 05:05 Blood - Peripheral Anaerobic Blood Culture - Final No growth in 5 days 12/22/17 12:55 Stool Stool Occult Blood (ADAM) - Final Hemoccult positive 12/11/17 22:55 Blood - Peripheral Aerobic Blood Culture - Final No growth in 5 days 12/11/17 22:55 Blood - Peripheral Anaerobic Blood Culture - Final Corynebacterium not JK 12/11/17 23:00 Blood - Peripheral Aerobic Blood Culture - Final Corynebacterium not JK 12/11/17 23:00 Blood - Peripheral Anaerobic Blood Culture - Final No growth in 5 days 12/11/17 Unknown Sputum - Endotracheal Gram Stain - Final 12/11/17 Unknown Sputum - Endotracheal Sputum Culture - Final Pseudomonas aeruginosa Escherichia coli Beta Strep not group A 12/11/17 23:00 Catheterized Urine Urine Culture - Final No growth in 48 hours Imaging: Chest X-Ray 12/11/17 22:21 CONCLUSION: 1. Underinflation with perihilar interstitial prominence which could be related to the underinflation or could represent pulmonary edema. No airspace consolidation is identified. 2. Endotracheal tube tip measures 2.7 cm from the rosette. Cervical Spine CT 12/12/17 00:00 CONCLUSION: No acute cervical spine abnormality is identified. Head CT 12/12/17 00:00 CONCLUSION: No acute intracranial abnormality is identified. . Head CTA 12/12/17 00:00 CONCLUSION: 1. Negative CTA Head. Neck CTA 12/12/17 00:00 CONCLUSION: 1. Atelectatic calcifications and areas of ulceration involving the origin of the right internal carotid artery with approximate 70-80% stenosis right at the takeoff of the right ICA prior to the start of the patient's internal coronary stent. Head CT 12/12/17 12:29 CONCLUSION: 1. Subtle areas of low attenuation are now seen in the right frontal and occipital regions of concern for areas of evolving infarction. There is no hemorrhage or mass effect. . Chest X-Ray 12/13/17 06:00 CONCLUSION: Mildly increased perihilar interstitial and airspace opacities. Although nonspecific the appearance could be related to pulmonary edema in the appropriate clinical setting. Chest X-Ray 12/17/17 11:50 CONCLUSION: Interval extubation with improved lung exam. Chest X-Ray 12/20/17 00:00 CONCLUSION: Continued prominence of the right bethel with continued infiltrate predominantly within the right lung. Changes are stable compared to previous. At some point, CT imaging would be of benefit to exclude right hilar mass if this has not already been performed. Chest CTA 12/21/17 00:00 CONCLUSION: 1. Apparent right subclavian artery. 2. Mildly enlarged subcarinal and right hilar lymph nodes. adenopathy. 3. Scattered pulmonary infiltrates including right lower lobe consolidation with air bronchogram formation. 4. Atherosclerosis. 5. No evidence for pulmonary embolism. Objective Remarks: GENERAL: Elderly male lying in bed, on nasal cannula SKIN: Warm and dry HEENT: NCAT, PERRL NECK: Trachea midline. Scarring from prior neck dissection CARDIOVASCULAR: Regular rate and rhythm. S1, S2 no S4. RESPIRATORY: On nasal cannula, good air entry bilaterally, scattered rhonchi more on the right, no wheezing. GASTROINTESTINAL: Soft, non-tender, non-distended. PEG tube present with some surrounding erythema but no bleeding. Currently to gravity MUSCULOSKELETAL: No peripheral edema NEUROLOGICAL: Drowsy, arousable, disoriented, on nasal cannula moving all extremities Assessment and Plan - Assessment and Plan Plan: Neuro/Psych: Acute encephalopathy- resolved Cerebrovascular accident Chronic benzodiazepine use with clonazepam 1 mg 3 times daily Chronic opioid use with fentanyl patches 25 mcg every 72 hours/found with 3 fentanyl patches on him Depression disorder NOS Fentanyl patch 25 mcg every 3 days home dose. Fentanyl 50 adam grams IV every 4 hours as needed breakthrough pain s/p right frontal and occipital CVA, unable to do MRI brain secondary to retained metal in eye according to . * Has bilateral internal carotid artery stents, right carotid stent has ulcerated plaque with 80% stenosis. Per vascular consult, may need additional stent inside of original one in order to cover the ulceration and relieve the stenosis. Will need a carotid angio first for pre-op planning. * ASA, 325 mg daily and clopidogrel 75 75 mg daily on hold due to possible GI bleed CV: Elevated troponin-- resolved Essential hypertension- chronic Coronary artery disease- chronic Bilateral carotid artery stents- chronic Troponin peaked at 0.39, no longer trending Due to possible GI bleed holding full-dose aspirin 325 mg daily and clopidogrel 75 mg daily Continue amlodipine 10 mg daily/home medication for hypertension 2D echo showed EF 60-65%, moderate pulmonary HTN (PA pressure 32 mmHg), moderate AR, trace TR Resp: Acute respiratory failure-- recurrent- resolving. Acute COPD exacerbation Healthcare associated Aspiration pneumonia Extubated on 12/14, transferred back to C 12/17 for bipap now back to BiPAP prn on 12/20 Completed 5 day course of steroids for presumed COPD exacerbation Albuterol/ipratropium aerosols every 6 hours with albuterol aerosols every 2 hours as needed. Dyspnea GI: Chronic dysphagia requring PEG tube nutrition Hypoalbuminemia Possible GI bleed with aspirin [id number] Restart tube feeding per GI recommendations today. See orders for Jevity 1.5 goal 60 cc an hour hold for residual >300 cc Pantoprazole 40 mg IV twice daily for GI prophylaxis Docusate sodium/senna 1 tablet twice daily for bowel regimen Hemoglobins every 6 hours. Transfuse hemoglobin greater than equal 7.0 : d/c mccray catheter. Endo: SSI with Accu-Cheks every 6 hours to maintain euglycemia Renal: Monitor urine output HEME: Leukocytosis Normocytic anemia Thrombocytosis Monitor CBC daily. Follow trends Transfuse one PRBC 12/23. Transfuse one PRBC 12/24. ID: Day 11 of piperacillin/tazobactam for pseudomonal/ E coli pneumonia, will continue for now as patient's respiratory status acutely worsened yesterday. Consult ID for worsening pneumonia/recurrent aspiration. Pertinent cultures 12/11 -sputum-Pseudomonas, E. coli, beta strep not a 12/11 blood cultures 2 Corynebacterium not J/K-repeat blood cultures 12/18 no growth MSK: PT evaluate and treat FEN: Hypophosphatemia Hypokalemia Replace electrolytes as clinically indicated per ICU electrolyte protocol Continue D5 one half normal saline with 20 mEq potassium chloride at 100 cc an hour while n.p.o. Access -Peripheral IV Prophylaxis -GI -pantoprazole -DVT -SCD/enoxaparin on hold due to possible GI bleed Level 3 follow-up. Discussed with at bedside.
[2017-12-24 11:57] LABS: Hematocrit 21.8 % (39.0-51.0); Hemoglobin 7.3 gm/dL (13.0-17.0)
[2017-12-24] MEDS ORDERED: Potassium Chloride 25 MEQ Effervescent Tablet PO ONE (12:00)
[2017-12-24] MEDS ORDERED: Potassium Phosphate Inj 30 MMOL in Sodium Chlor 0.9% Inj 250 ML IV.SIG ONE (12:30)
--- NOTE | 2017-12-24 13:57 | US ---
EXAM DATE: 12/24/2017 1:52 PM EDT AGE/SEX: 67 years / Male INDICATIONS: Abdominal pain. CLINICAL DATA: This is the patient's initial encounter. Patient reports that signs and symptoms have been present for 1 day and indicates a pain score of 3/10. MEDICAL/SURGICAL HISTORY: . Cardiovascular disease. Hypertension. Cerebrovascular disease. G -tube. Hypertension. Cardiovascular disease. Throat and tongue cancer. . Coronary artery stent. A ppendectomy. Glossectomy. COMPARISON: No prior exams available for comparison. MEASUREMENTS: Liver:__ 15.7 cm. Common Bile Duct:__ 5mm. Right Kidney:__ 10.2 x 4.7 x 5.0 cm. FINDINGS: Liver: Normal echotexture without focal lesion or ductal dilatation. Portal Vein: Hepatopedal flow seen in portal vein. Common Duct: No intraluminal mass or stone visualized. Gallbladder: Demonstrates no wall thickening or pericholecystic fluid. No stones visualized. Pancreas: The visualized portions are within normal limits Right Kidney: Normal echotexture and cortical thickness. No mass or hydronephrosis. Other: None. CONCLUSION: 1. Negative ultrasound liver. Electronically signed by: Tr Galan MD 12/24/2017 1:56 PM EDT
[2017-12-24 16:52] LABS: Hepatitis A IgM Antibody Nonreactive (Nonreactive); Hepatitits B Surface Antigen Nonreactive (Nonreactive)
[2017-12-24 18:53] LABS: Hematocrit 22.3 % (39.0-51.0); Hemoglobin 7.3 gm/dL (13.0-17.0)
[2017-12-24] MEDS: Mirtazapine 15 MG Tablet PO SCH (20:03)
[2017-12-24] MEDS: fentaNYL Citrate Inj 100 MCG/2 ML Ampul IV.PUSH PRN (21:16)
[2017-12-24 23:16] LABS: Hematocrit 25.4 % (39.0-51.0); Hemoglobin 8.5 gm/dL (13.0-17.0)
[2017-12-25] MEDS: Insulin NovoLOG Aspart Correctional Sugar Inj SQ SCH ×5 (00:06→23:36)
[2017-12-25] MEDS: Oral Hygiene Kit OROPHARYNG SCH ×4 (00:06→17:46)
[2017-12-25] MEDS: KCL 20 mEq/D5W/NaCl 0.45% Inj 1,000 ML IV.CONT SCH ×3 (02:01→23:01)
[2017-12-25] MEDS: Piperacil/Tazo 4.5 GM Premix 4.5 GM/100 ML BAG IV.SIG SCH ×4 (02:05→20:02)
[2017-12-25] MEDS: fentaNYL Citrate Inj 100 MCG/2 ML Ampul IV.PUSH PRN ×3 (02:05→23:28)
--- NOTE | 2017-12-25 05:48 | XR ---
EXAM DATE: 12/25/2017 5:21 AM EDT AGE/SEX: 67 years / Male INDICATIONS: Shortness of breath, possible pulmonary disease. CLINICAL DATA: This is the patient's subsequent encounter. Patient reports that signs and symptoms h ave been present for 2 weeks and indicates a pain score of Nonresponsive. MEDICAL/SURGICAL HISTORY: Cardiovascular disease. Cerebrovascular disease. Hypertension. Th roat and tongue cancer. Coronary artery stent. Appendectomy. Gastric tube. [place] [facility] [place] 1[place] SINGLE AP, 12/20/2017. . FINDINGS: Improved airspace disease in the right lower lobe with improved prominence of the right bethel. Cardiac silhouette is within normal limits. Remainder of the exam is unchanged. CONCLUSION: 1. Improved right lower lobe airspace disease. 2. Improved prominence of the right bethel which may reflect improving adenopathy. Electronically signed by: Alex Hall MD 12/25/2017 5:47 AM EDT
[2017-12-25 07:07] LABS: Baso % (Auto) 0.3 % (0.0-2.0); Eos # (Auto) 0.5 th/mm3 (0.0-0.4); Eos % (Auto) 3.4 % (0.0-4.0); Hematocrit 23.8 % (39.0-51.0); Hemoglobin 8.4 gm/dL (13.0-17.0); Lymph # (Auto) 2.5 th/mm3 (1.0-4.8); Lymph % (Auto) 17.2 % (9.0-44.0); Mean Corpuscular HGB Conc 35.1 % (32.0-36.0); Mean Corpuscular Hemoglobin 32.2 pg (27.0-34.0); Mean Corpuscular Volume 91.6 fL (80.0-100.0); Mean Platelet Volume 8.5 fL (7.0-11.0); Mono # (Auto) 0.9 th/mm3 (0.0-0.9); Mono % (Auto) 5.9 % (0.0-8.0); Neut # (Auto) 10.7 th/mm3 (1.8-7.7); Neut % (Auto) 73.2 % (16.0-70.0); Platelet Count 545 th/mm3 (150-450); Red Cell Distribution Width 17.3 % (11.6-17.2); White Blood Count 14.6 th/mm3 (4.0-11.0)
[2017-12-25 07:13] LABS: Activated Partial Thrombo Time 23.1 sec (24.3-30.1); INR 1.3 Ratio
[2017-12-25 07:30] LABS: Alanine Aminotransferase 506 U/L (12-78); Albumin 2.1 g/dL (3.4-5.0); Alkaline Phosphatase 124 U/L (45-117); Anion Gap 8 meq/L (5-15); Aspartate Aminotransferase 195 U/L (15-37); Blood Urea Nitrogen 10 mg/dL (7-18); Calcium 7.8 mg/dL (8.5-10.1); Carbon Dioxide 25.9 meq/L (21.0-32.0); Chloride 109 meq/L (98-107); Glomerular Filtration Rate Greater Than 89 mL/min (>89); Glucose,Random 125 mg/dL (74-106); Phosphorus 2.3 mg/dL (2.5-4.9); Potassium 3.4 meq/L (3.5-5.1); Sodium 143 meq/L (136-145); Total Protein 6.1 g/dL (6.4-8.2)
[2017-12-25 08:35] LABS: Eosinophils 2 % (0-4); Lymphocytes 15 % (9-44); Metamyelocytes 1 % (0-1); Monocytes 4 % (0-8); Myelocytes 6 % (0-0); Platelet Morphology Normal (Normal); Tallied Nucleated RBC 1 (0-0)
[2017-12-25 08:36] LABS: Polychromasia 2.2 % (0.0-1.9)
[2017-12-25] MEDS: Pantoprazole Inj 40 MG Vial IV.PUSH SCH ×2 (08:46→20:03)
[2017-12-25] MEDS: Mupirocin 2% Nasal Oint Topical Syringe EACH NARE SCH ×2 (08:47→20:02)
[2017-12-25] MEDS: amLODIPine 10 MG Tablet PO SCH (08:48)
[2017-12-25] MEDS: Senna/Docusate Sodium 8.6/50 MG Tablet PO SCH ×2 (08:48→20:02)
[2017-12-25] MEDS: Chlorhexidine 0.12% Oral Kit 15 ML UDC OROPHARYNG SCH ×2 (08:49→20:02)
[2017-12-25] MEDS: clonazePAM 0.5 MG Tablet PO SCH ×3 (08:49→17:45)
--- NOTE | 2017-12-25 09:04 | P.DIET ---
Nutritional Evaluation Type of nutrition evaluation: follow-up Nutrition consult regarding: Tube Feeding Screening comments: [place] [facility] [place] Objective - Diagnosis Respiratory Failure, Aspiration - Objective Calion body weight: 76 kg % IBW: 110 (IBW - 166#) Body Weight Used for Calculations: Actual (82.9) Energy Needs - Lower Range (kCal/kg): 25 Energy Needs - Upper Range (kCal/kg): 30 Lower Limit kCal/kg (kCals): 2,073 Upper Limit kCal/kg (kCals): 2,487 Lower Limit Protein Factor (Grams per Kg): 1.2 Upper Limit Protein Factor (Grams per Kg): 1.5 Lower Protein Needs (Protein): 99 Upper Protein Needs (Protein): 124 Dietitian Reviewed in Medical Record: Curent medications, Intake & Output, Labs , Medical history, Tube feeding Diet Order: NPO Objective Comments: PMH: CAD, HTN, Throat/Tongue Cancer, Depression, PEG Tube Assessment Assessment: Pt remains at high nutrition risk r/t current clinical status. TF had been on hold for possible GI bleed, now has been restarted per GI. Jevity 1.5 is currently running at 40ml/hr and pt is tolerating it at this time, goal rate is 60ml/hr. Significant weight loss noted since admission. CBW = 74.5 kg. Will continue to monitor TF tolerance, clinical course. Recommendations: Jevity 1.5 with goal rate 60 mls/hr Dietitian to Monitor: Lab values, Intake & Output, Tube feeding tolerance, Weight change, Medical course
[2017-12-25] MEDS: Potassium Phosphate Inj 30 MMOL in Sodium Chlor 0.9% Inj 250 ML IV.SIG PRN (09:19)
--- NOTE | 2017-12-25 10:04 | P.PNCC ---
Subjective Subjective Remarks/Hospital Course: 67-year-old male with past medical history of head and neck cancer presents from home after being found unresponsive. Patient was found by EMS to have spontaneous respirations palpable pulse and blood pressure but markedly decreased level of consciousness, hypotensive with large amount of tube feeding contents in the oral cavity. Patient has history of head neck cancer and takes no oral medications takes all medications and feedings through PEG tube. Patient was last seen normal approximately at breakfast time on Tuesday and then family members found him unresponsive. Unknown downtime. Upon EMS arrival patient was assessed and suctioned and initial O2 saturations were 60% patient was placed on supplemental oxygen with improved ventilations and then subsequently intubated with a 7.5 endotracheal tube. Per EMS copious amounts of suctioning was performed and large amounts of tube feeding were suctioned. Patient presents now with endotracheal tube in place bilateral breath sounds to auscultation with bag valve ventilation and normotensive upon EMS presentation however initial blood pressure here mildly hypotensive with systolic pressure of 90 mmHg. Patient remains unresponsive. Family members not available. Patient with known allergies to narcotics. No other medical history is available. 12/12: Afebrile. Currently on propofol and fentanyl drips. Not really moving his left upper lower extremity. CT brain with CT angiogram brain ordered. Cannot do MRI due to retained metal metal in eye according to . 12/13: Sedated, arousable, orally intubated on mechanical ventilation 12/14: Sedated, arousable, orally intubated on mechanical ventilation. 12/15: Extubated yesterday, on nasal cannula tolerating well. Precedex to be titrated off this morning. Fentanyl patch resumed yesterday. Patient is awake and alert, knows he is in the hospital. He recognizes his family members. Minimal weakness on the left side. Moving right side well. Tolerating PEG feeds. ___ 12/17: Patient transferred to hospitalist service yesterday, but this morning was again found to be in respiratory distress. Concern for recurrent aspiration as he had high tube feed residuals via PEG. Transferred to [facility] [place]. 12/18: Patient tolerated bipap well yesterday, had some agitation overnight which improved with seroquel. 12/19: back on NC o2. clinically improving. denies complaints. SOB improving. 12/20: Fluctuating mental status. Fentanyl patch discontinued today. Patient placed on BiPAP intermittently. Started Precedex for agitation. 12/21: Resting comfortably in bed on nasal cannula. Currently on BiPAP. 12/22: Afebrile. Tolerated BiPAP overnight. Large black BM today. Holding aspirin and clopidogrel. Holding enoxaparin. Stat CBC and Hemoccult ordered. And coags. Appears clinically stable. 12/23: Remains on 6 L nasal cannula. Hemoglobin currently 8.3. PEG tube currently to gravity.. Replacing potassium phosphorus. Subjective 12/24: Remains on 6 L nasal cannula. Transfuse 1 unit PRBCs overnight. Hemoglobin currently 7.8. GI okayed restarting tube feeds today. Recommend holding clopidogrel and aspirin. More pleasant and mentation much improved over the past 72 hours. 12/25: Currently on nasal cannula 6 L, hemoglobin 8.4. No active GI bleed seen at this time. Per GI note endoscopy when more stable. Did not appear to be in respiratory distress Objective Vital Signs / I&O: Vital Signs 12/24/17 10:00 12/24/17 11:00 12/24/17 11:07 Temperature Pulse Rate 105 H 96 H Respiratory Rate 13 23 18 Blood Pressure 122/57 L 91/54 L Pulse Oximetry 86 L 92 L 12/24/17 12:00 12/24/17 13:00 12/24/17 14:00 Temperature 98.2 F Pulse Rate 97 H 108 H 100 H Respiratory Rate 15 23 15 Blood Pressure 148/70 H 164/78 H 132/63 Pulse Oximetry 88 L 90 L 12/24/17 15:00 12/24/17 15:52 12/24/17 16:00 Temperature 99.2 F Pulse Rate 101 H 97 H Respiratory Rate 21 30 H 0 L Blood Pressure 115/58 L 115/59 L Pulse Oximetry 94 L 12/24/17 16:58 12/24/17 17:00 12/24/17 18:00 Temperature Pulse Rate 94 H 94 H 99 H Respiratory Rate 20 36 H 26 H Blood Pressure 123/66 124/60 Pulse Oximetry 98 90 L 12/24/17 18:37 12/24/17 19:00 12/24/17 19:02 Temperature 99.8 F H Pulse Rate 100 H 100 H 101 H Respiratory Rate 26 H 25 H 26 H Blood Pressure 124/60 128/61 115/59 L Pulse Oximetry 92 L 73 L 92 L 12/24/17 19:03 12/24/17 20:00 12/24/17 21:00 Temperature 99.6 F 97.7 F Pulse Rate 100 H 99 H 111 H Respiratory Rate 21 24 35 H Blood Pressure 115/59 L 120/72 153/74 H Pulse Oximetry 97 94 L 82 L 12/24/17 21:46 12/24/17 21:55 12/24/17 22:00 Temperature Pulse Rate 104 H 104 H 100 H Respiratory Rate 24 28 H 27 H Blood Pressure 153/74 H 104/55 L Pulse Oximetry 86 L 92 L 93 L 12/24/17 23:00 12/25/17 00:00 12/25/17 01:00 Temperature 99.7 F H Pulse Rate 102 H 102 H 94 H Respiratory Rate 26 H 24 25 H Blood Pressure 147/73 H 132/62 142/67 H Pulse Oximetry 95 93 L 95 12/25/17 02:00 12/25/17 03:00 12/25/17 04:00 Temperature 99.2 F Pulse Rate 100 H 97 H 99 H Respiratory Rate 29 H 27 H 26 H Blood Pressure 133/71 133/67 159/75 H Pulse Oximetry 88 L 89 L 91 L 12/25/17 04:25 12/25/17 06:00 12/25/17 09:44 Temperature Pulse Rate 97 H 91 H 94 H Respiratory Rate 24 23 Blood Pressure Pulse Oximetry 94 L 94 L Intake & Output 12/24/17 12/25/17 12/25/17 18:59 06:59 18:59 Intake Total 1280 / 1280 2230 / 2230 Output Total 2750 / 2750 1475 / 1475 Balance -1470 / -1470 755 / 755 Weight 74.5 kg Intake: IV 1200 / 1200 1475 / 1475 D5W/1/2NS + KCL 20 mEq Inj 1, 1000 / 1000 1000 / 1000 000 ML @ 100 mls/hr IV.CONT . Q10H HEATHER Rx#:[id number] Zosyn 4.5 GM Premix 4.5 gm In 200 / 200 200 / 200 100 ml @ 200 mls/hr IV.SIG Q6H HEATHER Rx#:[id number] Tube Feeding 30 / 30 355 / 355 Tube Irrigant 50 / 50 Intake (Blood Product) Amt 0 / 0 400 / 400 Rbc As-3 Leukoreduced Unit 0 / 0 400 / 400 [id number] Output: Urine 250 / 250 Urine Amount (Catheter) 2500 / 2500 1475 / 1475 Indwelling Urethral Catheter 1150 / 1150 1475 / 1475 Straight 1350 / 1350 Other: # Voids 2 # Incontinent Voids 1 Date of Last Bowel Movement 12/23/17 12/23/17 Result Diagrams: 12/25/17 06:43 12/25/17 06:43 Objective Remarks: GENERAL: Elderly male lying in bed, on nasal cannula SKIN: Warm and dry HEENT: NCAT, PERRL NECK: Trachea midline. Scarring from prior neck dissection CARDIOVASCULAR: Regular rate and rhythm. S1, S2 no S4. RESPIRATORY: On nasal cannula, good air entry bilaterally, scattered rhonchi, no wheezing. GASTROINTESTINAL: Soft, non-tender, non-distended. PEG tube present with some surrounding erythema but no bleeding. Currently to gravity MUSCULOSKELETAL: No peripheral edema NEUROLOGICAL: Arousable, communicative, disoriented, on nasal cannula moving all extremities. No obvious focal deficits Assessment and Plan - Assessment and Plan Plan: Neuro/Psych: Acute encephalopathy- resolved Cerebrovascular accident Chronic benzodiazepine use with clonazepam 1 mg 3 times daily Chronic opioid use with fentanyl patches 25 mcg every 72 hours/found with 3 fentanyl patches on him Depression disorder NOS Fentanyl patch 25 mcg every 3 days home dose. Fentanyl 50 adam grams IV every 4 hours as needed breakthrough pain s/p right frontal and occipital CVA, unable to do MRI brain secondary to retained metal in eye according to . * Has bilateral internal carotid artery stents, right carotid stent has ulcerated plaque with 80% stenosis. Per vascular consult, may need additional stent inside of original one in order to cover the ulceration and relieve the stenosis. Need a carotid angio first for pre-op planning. * ASA, 325 mg daily and clopidogrel 75 mg daily on hold due to possible GI bleed CV: Elevated troponin-- resolved Essential hypertension- chronic Coronary artery disease- chronic Bilateral carotid artery stents- chronic Troponin peaked at 0.39, no longer trending Due to possible GI bleed holding full-dose aspirin 325 mg daily and clopidogrel 75 mg daily Continue amlodipine 10 mg daily/home medication for hypertension 2D echo showed EF 60-65%, moderate pulmonary HTN (PA pressure 32 mmHg), moderate AR, trace TR Resp: Acute respiratory failure-- recurrent- resolving. Acute COPD exacerbation Healthcare associated Aspiration pneumonia Extubated on 12/14, transferred back to [facility] 12/17 for bipap now back to BiPAP prn on 12/20, On bipap for 4 hours 12/24 night Completed 5 day course of steroids for presumed COPD exacerbation Albuterol/ipratropium aerosols every 6 hours with albuterol aerosols every 2 hours as needed. Dyspnea GI: Chronic dysphagia requiring PEG tube nutrition Hypoalbuminemia Possible GI bleed with aspirin [id number] Restarted tube feeding per GI recommendations today. Orders for Jevity 1.5 goal 60 cc an hour Hold for residual >300 cc Pantoprazole 40 mg IV twice daily for GI prophylaxis Docusate sodium/senna 1 tablet twice daily for bowel regimen Hemoglobins every 6 hours. Transfuse hemoglobin greater than equal 7.0 Endoscopy per GI : d/cd Salas catheter. Endo: SSI with Accu-Cheks every 6 hours to maintain euglycemia Renal: Monitor urine output HEME: Leukocytosis Normocytic anemia Thrombocytosis Monitor CBC daily. Follow trends Transfuse one PRBC 12/23. Transfused one PRBC 12/24. ID: Day 12 of piperacillin/tazobactam for pseudomonal/ E coli pneumonia, will continue for now as patient's respiratory status acutely worsened yesterday. Consult ID for worsening pneumonia/recurrent aspiration. Pertinent cultures 12/11 -sputum-Pseudomonas, E. coli, beta strep not a 12/11 blood cultures 2 Corynebacterium not J/K-repeat blood cultures 12/18 no growth MSK: PT evaluate and treat FEN: Hypophosphatemia Hypokalemia Replace electrolytes as clinically indicated per ICU electrolyte protocol DC D5 one half normal saline with 20 mEq potassium chloride as patient is tolerating PEG tube Access -Peripheral IV Prophylaxis -GI -pantoprazole -DVT -SCD/enoxaparin on hold due to possible GI bleed Level 2 follow-up Consult hospitalist to assume care in a.m.. Continue ICU care for another 24
--- NOTE | 2017-12-25 13:04 | P.PNGI ---
Subjective Interval history: Pt is sitting up in chair, tolerating TF okay, had BM X 2 today, they were dark according to nurse. hgb today is stable, received one unit of blood yesterday <Kindra Zhang - Last Filed: 12/25/17 12:57> Physical Exam Vital signs: Vital Signs 12/24/17 13:00 12/24/17 14:00 12/24/17 15:00 Temperature Pulse Rate 108 H 100 H 101 H Respiratory Rate 23 15 21 Blood Pressure 164/78 H 132/63 115/58 L Pulse Oximetry 90 L 12/24/17 15:52 12/24/17 16:00 12/24/17 16:58 Temperature 99.2 F Pulse Rate 97 H 94 H Respiratory Rate 30 H 0 L 20 Blood Pressure 115/59 L Pulse Oximetry 94 L 12/24/17 17:00 12/24/17 18:00 12/24/17 18:37 Temperature 99.8 F H Pulse Rate 94 H 99 H 100 H Respiratory Rate 36 H 26 H 26 H Blood Pressure 123/66 124/60 124/60 Pulse Oximetry 98 90 L 92 L 12/24/17 19:00 12/24/17 19:02 12/24/17 19:03 Temperature 99.6 F Pulse Rate 100 H 101 H 100 H Respiratory Rate 25 H 26 H 21 Blood Pressure 128/61 115/59 L 115/59 L Pulse Oximetry 73 L 92 L 97 12/24/17 20:00 12/24/17 21:00 12/24/17 21:46 Temperature 97.7 F Pulse Rate 99 H 111 H 104 H Respiratory Rate 24 35 H 24 Blood Pressure 120/72 153/74 H Pulse Oximetry 94 L 82 L 86 L 12/24/17 21:55 12/24/17 22:00 12/24/17 23:00 Temperature Pulse Rate 104 H 100 H 102 H Respiratory Rate 28 H 27 H 26 H Blood Pressure 153/74 H 104/55 L 147/73 H Pulse Oximetry 92 L 93 L 95 12/25/17 00:00 12/25/17 01:00 12/25/17 02:00 Temperature 99.7 F H Pulse Rate 102 H 94 H 100 H Respiratory Rate 24 25 H 29 H Blood Pressure 132/62 142/67 H 133/71 Pulse Oximetry 93 L 95 88 L 12/25/17 03:00 12/25/17 04:00 12/25/17 04:25 Temperature 99.2 F Pulse Rate 97 H 99 H 97 H Respiratory Rate 27 H 26 H 24 Blood Pressure 133/67 159/75 H Pulse Oximetry 89 L 91 L 94 L 12/25/17 05:00 12/25/17 06:00 12/25/17 07:00 Temperature Pulse Rate 93 H 91 H 93 H Respiratory Rate 25 H 25 H 29 H Blood Pressure 87/51 L 110/55 L 126/65 Pulse Oximetry 93 L 92 L 12/25/17 08:00 12/25/17 09:00 12/25/17 09:44 Temperature Pulse Rate 100 H 96 H 94 H Respiratory Rate 27 H 26 H 23 Blood Pressure 149/72 H 113/61 Pulse Oximetry 94 L 12/25/17 10:00 12/25/17 11:00 12/25/17 12:00 Temperature Pulse Rate 99 H 101 H 104 H Respiratory Rate 31 H 27 H 26 H Blood Pressure 127/60 123/65 113/76 Pulse Oximetry 91 L 94 L 97 Intake & Output 12/24/17 12/25/17 12/25/17 18:59 06:59 18:59 Intake Total 1280 / 1280 2230 / 2230 1000 / 1000 Output Total 2750 / 2750 1475 / 1475 Balance -1470 / -1470 755 / 755 1000 / 1000 Weight 74.5 kg Intake: IV 1200 / 1200 1475 / 1475 1000 / 1000 D5W/1/2NS + KCL 20 mEq Inj 1, 1000 / 1000 1000 / 1000 1000 / 1000 000 ML @ 100 mls/hr IV.CONT . Q10H HEATHER Rx#:[id number] Zosyn 4.5 GM Premix 4.5 gm In 200 / 200 200 / 200 100 ml @ 200 mls/hr IV.SIG Q6H HEATHER Rx#:[id number] Tube Feeding 30 / 30 355 / 355 Tube Irrigant 50 / 50 Intake (Blood Product) Amt 0 / 0 400 / 400 Rbc As-3 Leukoreduced Unit 0 / 0 400 / 400 [id number] Output: Urine 250 / 250 Urine Amount (Catheter) 2500 / 2500 1475 / 1475 Indwelling Urethral Catheter 1150 / 1150 1475 / 1475 Straight 1350 / 1350 Other: # Voids 2 # Incontinent Voids 1 Date of Last Bowel Movement 12/23/17 12/23/17 12/25/17 - Constitutional no acute distress - Routine HEENT Exam Head: Present: normocephalic - Routine Respiratory Exam Present: CTA bilaterally - Routine Cardiovascular Exam Present: RRR - Routine Abdominal Exam Present: soft, normoactive bowel sounds. Absent: tenderness, distended Comments: PEG tube - Routine Skin Exam Present: intact, dry. Absent: jaundice - Routine Neurological Exam Present: alert, oriented X3 - Urinary Catheter Management Indwelling Urethral Catheter Cath placed during this visit: yes, but has since been removed by the nurse Reason for continuing: Acute urinary retention Insertion date: 12/24/17 Insertion time: 15:45 Removal date: 12/22/17 Removal time: 17:30 Straight Cath placed during this visit: yes Reason for continuing: Acute urinary retention Insertion date: 12/24/17 Insertion time: 13:00 <Kindra Zhang - Last Filed: 12/25/17 12:57> Vital signs: Vital Signs 12/24/17 18:00 12/24/17 18:37 12/24/17 19:00 Temperature 99.8 F H Pulse Rate 99 H 100 H 100 H Respiratory Rate 26 H 26 H 25 H Blood Pressure 124/60 124/60 128/61 Pulse Oximetry 90 L 92 L 73 L 12/24/17 19:02 12/24/17 19:03 12/24/17 20:00 Temperature 99.6 F 97.7 F Pulse Rate 101 H 100 H 99 H Respiratory Rate 26 H 21 24 Blood Pressure 115/59 L 115/59 L 120/72 Pulse Oximetry 92 L 97 94 L 12/24/17 21:00 12/24/17 21:46 12/24/17 21:55 Temperature Pulse Rate 111 H 104 H 104 H Respiratory Rate 35 H 24 28 H Blood Pressure 153/74 H 153/74 H Pulse Oximetry 82 L 86 L 92 L 12/24/17 22:00 12/24/17 23:00 12/25/17 00:00 Temperature 99.7 F H Pulse Rate 100 H 102 H 102 H Respiratory Rate 27 H 26 H 24 Blood Pressure 104/55 L 147/73 H 132/62 Pulse Oximetry 93 L 95 93 L 12/25/17 01:00 12/25/17 02:00 12/25/17 03:00 Temperature Pulse Rate 94 H 100 H 97 H Respiratory Rate 25 H 29 H 27 H Blood Pressure 142/67 H 133/71 133/67 Pulse Oximetry 95 88 L 89 L 12/25/17 04:00 12/25/17 04:25 12/25/17 05:00 Temperature 99.2 F Pulse Rate 99 H 97 H 93 H Respiratory Rate 26 H 24 25 H Blood Pressure 159/75 H 87/51 L Pulse Oximetry 91 L 94 L 93 L 12/25/17 06:00 12/25/17 07:00 12/25/17 08:00 Temperature Pulse Rate 91 H 93 H 100 H Respiratory Rate 25 H 29 H 27 H Blood Pressure 110/55 L 126/65 149/72 H Pulse Oximetry 92 L 12/25/17 09:00 12/25/17 09:44 12/25/17 10:00 Temperature Pulse Rate 96 H 94 H 99 H Respiratory Rate 26 H 23 31 H Blood Pressure 113/61 127/60 Pulse Oximetry 94 L 91 L 12/25/17 11:00 12/25/17 12:00 12/25/17 14:00 Temperature Pulse Rate 101 H 104 H 91 H Respiratory Rate 27 H 23 Blood Pressure 123/65 113/76 Pulse Oximetry 94 L 97 12/25/17 16:00 12/25/17 16:06 Temperature 98.1 F Pulse Rate 92 H 92 H Respiratory Rate 28 H 22 Blood Pressure 114/62 Pulse Oximetry 92 L Intake & Output 12/24/17 12/25/17 12/25/17 18:59 06:59 18:59 Intake Total 1280 / 1280 2230 / 2230 1100 / 1100 Output Total 2750 / 2750 1475 / 1475 Balance -1470 / -1470 755 / 755 1100 / 1100 Weight 74.5 kg Intake: IV 1200 / 1200 1475 / 1475 1100 / 1100 D5W/1/2NS + KCL 20 mEq Inj 1, 1000 / 1000 1000 / 1000 1000 / 1000 000 ML @ 100 mls/hr IV.CONT . Q10H HEATHER Rx#:[id number] Zosyn 4.5 GM Premix 4.5 gm In 200 / 200 200 / 200 100 / 100 100 ml @ 200 mls/hr IV.SIG Q6H HEATHER Rx#:[id number] Tube Feeding 30 / 30 355 / 355 Tube Irrigant 50 / 50 Intake (Blood Product) Amt 0 / 0 400 / 400 Rbc As-3 Leukoreduced Unit 0 / 0 400 / 400 [id number] Output: Urine 250 / 250 Urine Amount (Catheter) 2500 / 2500 1475 / 1475 Indwelling Urethral Catheter 1150 / 1150 1475 / 1475 Straight 1350 / 1350 Other: # Voids 2 # Incontinent Voids 1 Date of Last Bowel Movement 12/23/17 12/23/17 12/25/17 - Urinary Catheter Management Indwelling Urethral Catheter Cath placed during this visit: no Straight Cath placed during this visit: no <LluviaKathe - Last Filed: 12/25/17 17:39> Results - Labs CBC & Chem 7: 12/25/17 06:43 12/25/17 06:43 Laboratory Results - last 24 hr 12/23/17 12/24/17 12/24/17 16:50 12:37 14:28 WBC RBC Hgb Hct MCV MCH MCHC RDW Plt Count MPV Prelim Diff (Auto) Neut % (Auto) Lymph % (Auto) Jay % (Auto) Eos % (Auto) Baso % (Auto) Neut # (Auto) Lymph # (Auto) Jay # (Auto) Eos # (Auto) Baso # (Auto) WBC Differential Seg Neuts % (Manual) Band Neuts % (Manual) Lymphocytes % (Manual) Monocytes % (Manual) Eosinophils % (Manual) Basophils % (Manual) Metamyelocytes % (Man) Myelocytes % (Man) Abs Neuts (Manual) Nucleated RBCs/100 WBC Differential Comment Platelet Estimate Platelet Morphology Polychromasia PT INR APTT Sodium Potassium Chloride Carbon Dioxide Anion Gap BUN Creatinine Estimated GFR POC Glucose Random Glucose Calcium Phosphorus Magnesium Total Bilirubin AST ALT Alkaline Phosphatase Ammonia Total Creatine Kinase 35 L Total Protein Albumin Hepatitis A IgM Ab Hep Bs Antigen Hep B Core IgM Ab Hep C IgG Ab MTS Gel Crossmatch See Detail See Detail 12/24/17 12/24/17 12/24/17 14:28 18:21 18:24 WBC RBC Hgb 7.3 L Hct 22.3 L MCV MCH MCHC RDW Plt Count MPV Prelim Diff (Auto) Neut % (Auto) Lymph % (Auto) Jay % (Auto) Eos % (Auto) Baso % (Auto) Neut # (Auto) Lymph # (Auto) Jay # (Auto) Eos # (Auto) Baso # (Auto) WBC Differential Seg Neuts % (Manual) Band Neuts % (Manual) Lymphocytes % (Manual) Monocytes % (Manual) Eosinophils % (Manual) Basophils % (Manual) Metamyelocytes % (Man) Myelocytes % (Man) Abs Neuts (Manual) Nucleated RBCs/100 WBC Differential Comment Platelet Estimate Platelet Morphology Polychromasia PT INR APTT Sodium Potassium Chloride Carbon Dioxide Anion Gap BUN Creatinine Estimated GFR POC Glucose 126 H Random Glucose Calcium Phosphorus Magnesium Total Bilirubin AST ALT Alkaline Phosphatase Ammonia Total Creatine Kinase Total Protein Albumin Hepatitis A IgM Ab Nonreactive Hep Bs Antigen Nonreactive Hep B Core IgM Ab Nonreactive Hep C IgG Ab Reactive H MTS Gel Crossmatch 12/24/17 12/24/17 12/25/17 22:51 23:32 05:29 WBC RBC Hgb 8.5 L Hct 25.4 L MCV MCH MCHC RDW Plt Count MPV Prelim Diff (Auto) Neut % (Auto) Lymph % (Auto) Jay % (Auto) Eos % (Auto) Baso % (Auto) Neut # (Auto) Lymph # (Auto) Jay # (Auto) Eos # (Auto) Baso # (Auto) WBC Differential Seg Neuts % (Manual) Band Neuts % (Manual) Lymphocytes % (Manual) Monocytes % (Manual) Eosinophils % (Manual) Basophils % (Manual) Metamyelocytes % (Man) Myelocytes % (Man) Abs Neuts (Manual) Nucleated RBCs/100 WBC Differential Comment Platelet Estimate Platelet Morphology Polychromasia PT INR APTT Sodium Potassium Chloride Carbon Dioxide Anion Gap BUN Creatinine Estimated GFR POC Glucose 139 H 138 H Random Glucose Calcium Phosphorus Magnesium Total Bilirubin AST ALT Alkaline Phosphatase Ammonia Total Creatine Kinase Total Protein Albumin Hepatitis A IgM Ab Hep Bs Antigen Hep B Core IgM Ab Hep C IgG Ab MTS Gel Crossmatch 12/25/17 12/25/17 12/25/17 06:43 06:43 06:43 WBC 14.6 H RBC 2.60 L Hgb 8.4 L Hct 23.8 L MCV 91.6 MCH 32.2 MCHC 35.1 RDW 17.3 H Plt Count 545 H MPV 8.5 Prelim Diff (Auto) Slide review pending Neut % (Auto) 73.2 H Lymph % (Auto) 17.2 Jay % (Auto) 5.9 Eos % (Auto) 3.4 Baso % (Auto) 0.3 Neut # (Auto) 10.7 H Lymph # (Auto) 2.5 Jay # (Auto) 0.9 Eos # (Auto) 0.5 H Baso # (Auto) 0.0 WBC Differential Manual diff final Seg Neuts % (Manual) 69 Band Neuts % (Manual) 2 Lymphocytes % (Manual) 15 Monocytes % (Manual) 4 Eosinophils % (Manual) 2 Basophils % (Manual) 1 Metamyelocytes % (Man) 1 Myelocytes % (Man) 6 H Abs Neuts (Manual) 11.4 H Nucleated RBCs/100 WBC 1 H Differential Comment . Platelet Estimate High H Platelet Morphology Normal Polychromasia 2.2 H PT 13.0 H INR 1.3 APTT 23.1 L Sodium 143 Potassium 3.4 L Chloride 109 H Carbon Dioxide 25.9 Anion Gap 8 BUN 10 Creatinine 0.67 Estimated GFR Greater than 89 POC Glucose Random Glucose 125 H Calcium 7.8 L Phosphorus 2.3 L Magnesium 2.0 Total Bilirubin 0.5 AST 195 H ALT 506 H Alkaline Phosphatase 124 H Ammonia Total Creatine Kinase Total Protein 6.1 L Albumin 2.1 L Hepatitis A IgM Ab Hep Bs Antigen Hep B Core IgM Ab Hep C IgG Ab MTS Gel Crossmatch 12/25/17 12/25/17 06:43 12:44 WBC RBC Hgb Hct MCV MCH MCHC RDW Plt Count MPV Prelim Diff (Auto) Neut % (Auto) Lymph % (Auto) Jay % (Auto) Eos % (Auto) Baso % (Auto) Neut # (Auto) Lymph # (Auto) Jay # (Auto) Eos # (Auto) Baso # (Auto) WBC Differential Seg Neuts % (Manual) Band Neuts % (Manual) Lymphocytes % (Manual) Monocytes % (Manual) Eosinophils % (Manual) Basophils % (Manual) Metamyelocytes % (Man) Myelocytes % (Man) Abs Neuts (Manual) Nucleated RBCs/100 WBC Differential Comment Platelet Estimate Platelet Morphology Polychromasia PT INR APTT Sodium Potassium Chloride Carbon Dioxide Anion Gap BUN Creatinine Estimated GFR POC Glucose 158 H Random Glucose Calcium Phosphorus Magnesium Total Bilirubin AST ALT Alkaline Phosphatase Ammonia 38 H Total Creatine Kinase Total Protein Albumin Hepatitis A IgM Ab Hep Bs Antigen Hep B Core IgM Ab Hep C IgG Ab MTS Gel Crossmatch - Imaging Impressions Liver Ultrasound 12/24/17 00:00 CONCLUSION: 1. Negative ultrasound liver. Chest X-Ray 12/25/17 06:00 CONCLUSION: 1. Improved right lower lobe airspace disease. 2. Improved prominence of the right [place] which may reflect improving adenopathy. <Kindra Zhang - Last Filed: 12/25/17 12:57> - Labs CBC & Chem 7: 12/25/17 06:43 12/25/17 06:43 Laboratory Results - last 24 hr 12/23/17 12/24/17 12/24/17 16:50 12:37 18:21 WBC RBC Hgb 7.3 L Hct 22.3 L MCV MCH MCHC RDW Plt Count MPV Prelim Diff (Auto) Neut % (Auto) Lymph % (Auto) Jay % (Auto) Eos % (Auto) Baso % (Auto) Neut # (Auto) Lymph # (Auto) Jay # (Auto) Eos # (Auto) Baso # (Auto) WBC Differential Seg Neuts % (Manual) Band Neuts % (Manual) Lymphocytes % (Manual) Monocytes % (Manual) Eosinophils % (Manual) Basophils % (Manual) Metamyelocytes % (Man) Myelocytes % (Man) Abs Neuts (Manual) Nucleated RBCs/100 WBC Differential Comment Platelet Estimate Platelet Morphology Polychromasia PT INR APTT Sodium Potassium Chloride Carbon Dioxide Anion Gap BUN Creatinine Estimated GFR POC Glucose Random Glucose Calcium Phosphorus Magnesium Total Bilirubin AST ALT Alkaline Phosphatase Ammonia Total Protein Albumin MTS Gel Crossmatch See Detail See Detail 12/24/17 12/24/17 12/24/17 18:24 22:51 23:32 WBC RBC Hgb 8.5 L Hct 25.4 L MCV MCH MCHC RDW Plt Count MPV Prelim Diff (Auto) Neut % (Auto) Lymph % (Auto) Jay % (Auto) Eos % (Auto) Baso % (Auto) Neut # (Auto) Lymph # (Auto) Jay # (Auto) Eos # (Auto) Baso # (Auto) WBC Differential Seg Neuts % (Manual) Band Neuts % (Manual) Lymphocytes % (Manual) Monocytes % (Manual) Eosinophils % (Manual) Basophils % (Manual) Metamyelocytes % (Man) Myelocytes % (Man) Abs Neuts (Manual) Nucleated RBCs/100 WBC Differential Comment Platelet Estimate Platelet Morphology Polychromasia PT INR APTT Sodium Potassium Chloride Carbon Dioxide Anion Gap BUN Creatinine Estimated GFR POC Glucose 126 H 139 H Random Glucose Calcium Phosphorus Magnesium Total Bilirubin AST ALT Alkaline Phosphatase Ammonia Total Protein Albumin MTS Gel Crossmatch 12/25/17 12/25/17 12/25/17 05:29 06:43 06:43 WBC 14.6 H RBC 2.60 L Hgb 8.4 L Hct 23.8 L MCV 91.6 MCH 32.2 MCHC 35.1 RDW 17.3 H Plt Count 545 H MPV 8.5 Prelim Diff (Auto) Slide review pending Neut % (Auto) 73.2 H Lymph % (Auto) 17.2 Jay % (Auto) 5.9 Eos % (Auto) 3.4 Baso % (Auto) 0.3 Neut # (Auto) 10.7 H Lymph # (Auto) 2.5 Jay # (Auto) 0.9 Eos # (Auto) 0.5 H Baso # (Auto) 0.0 WBC Differential Manual diff final Seg Neuts % (Manual) 69 Band Neuts % (Manual) 2 Lymphocytes % (Manual) 15 Monocytes % (Manual) 4 Eosinophils % (Manual) 2 Basophils % (Manual) 1 Metamyelocytes % (Man) 1 Myelocytes % (Man) 6 H Abs Neuts (Manual) 11.4 H Nucleated RBCs/100 WBC 1 H Differential Comment . Platelet Estimate High H Platelet Morphology Normal Polychromasia 2.2 H PT 13.0 H INR 1.3 APTT 23.1 L Sodium Potassium Chloride Carbon Dioxide Anion Gap BUN Creatinine Estimated GFR POC Glucose 138 H Random Glucose Calcium Phosphorus Magnesium Total Bilirubin AST ALT Alkaline Phosphatase Ammonia Total Protein Albumin MTS Gel Crossmatch 12/25/17 12/25/17 12/25/17 06:43 06:43 12:44 WBC RBC Hgb Hct MCV MCH MCHC RDW Plt Count MPV Prelim Diff (Auto) Neut % (Auto) Lymph % (Auto) Jay % (Auto) Eos % (Auto) Baso % (Auto) Neut # (Auto) Lymph # (Auto) Jay # (Auto) Eos # (Auto) Baso # (Auto) WBC Differential Seg Neuts % (Manual) Band Neuts % (Manual) Lymphocytes % (Manual) Monocytes % (Manual) Eosinophils % (Manual) Basophils % (Manual) Metamyelocytes % (Man) Myelocytes % (Man) Abs Neuts (Manual) Nucleated RBCs/100 WBC Differential Comment Platelet Estimate Platelet Morphology Polychromasia PT INR APTT Sodium 143 Potassium 3.4 L Chloride 109 H Carbon Dioxide 25.9 Anion Gap 8 BUN 10 Creatinine 0.67 Estimated GFR Greater than 89 POC Glucose 158 H Random Glucose 125 H Calcium 7.8 L Phosphorus 2.3 L Magnesium 2.0 Total Bilirubin 0.5 AST 195 H ALT 506 H Alkaline Phosphatase 124 H Ammonia 38 H Total Protein 6.1 L Albumin 2.1 L MTS Gel Crossmatch 12/25/17 17:19 WBC RBC Hgb Hct MCV MCH MCHC RDW Plt Count MPV Prelim Diff (Auto) Neut % (Auto) Lymph % (Auto) Jay % (Auto) Eos % (Auto) Baso % (Auto) Neut # (Auto) Lymph # (Auto) Jay # (Auto) Eos # (Auto) Baso # (Auto) WBC Differential Seg Neuts % (Manual) Band Neuts % (Manual) Lymphocytes % (Manual) Monocytes % (Manual) Eosinophils % (Manual) Basophils % (Manual) Metamyelocytes % (Man) Myelocytes % (Man) Abs Neuts (Manual) Nucleated RBCs/100 WBC Differential Comment Platelet Estimate Platelet Morphology Polychromasia PT INR APTT Sodium Potassium Chloride Carbon Dioxide Anion Gap BUN Creatinine Estimated GFR POC Glucose 110 Random Glucose Calcium Phosphorus Magnesium Total Bilirubin AST ALT Alkaline Phosphatase Ammonia Total Protein Albumin MTS Gel Crossmatch - Imaging Impressions Chest X-Ray 12/25/17 06:00 CONCLUSION: 1. Improved right lower lobe airspace disease. 2. Improved prominence of the right [place] which may reflect improving adenopathy. <Kathe Teixeira - Last Filed: 12/25/17 17:39> Assessment and Plan - Plan Assessment: - Anemia with reports of one episode of melena H/H currently 9.05/07.4 Pt reportedly had been taking about 6 tablets of ASA daily prior to arrival because he states that and his Fentanyl patches are the only thing that helps with his pain. According to RN pt had one loose, black tarry BM earlier today, it was tested and came back Hemoccult positive. At present, pt is resting in bed, denies any nausea, vomiting, abdominal pain. 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 He currently receives everything through his PEG, according to RN he has been tolerating his tube feeding. Pt does thing that he has had previous EGD but believe it was in the 80s. Of note, he is on Plavix and ASA, states carotid stents, currently on hold. At time of my exam pt is on 6L o2 via [place] 12/23/2017, patient continues in the intensive care setting on oxygen at 6 L per nasal cannula O2 sats are labile between 91 and 95 and patient was placed on BiPAP this past a.m. for rest. Leukocytosis unspecified currently 19.6, requiring some suctioning for maintenance of his airway. Monitoring labs with special attention to his hemoglobin and coffee-ground emesis noted. PEG tube no feedings for now. 12/24/17 no melena today, no bm, PEG tube with coffee ground like substance in the tube, however, according to nurse, no coffee ground residuals, was able to flush and give meds with persistent of the coffee ground like substance in the tube, could be just discolorations in tubing. Still on 6 L of o2 hgb today is 7.8 12/25/17 Dark stools reported by nurse, no nausea, no vomiting, tolerating TF okay, hgb stable 8.4, received one unit of blood yesterday 12/24 Plan: TF ok to resume blood thinner risk of cardiac events outweighs risk of gi bleeding , preferably Lovenox EGD when more stable, still on a high amount of oxygen via NC Monitor labs and transfuse as needed for now Protonix Notify GI for active bleed Further recommendations to follow Patient was seen by myself and Dr. Teixeira <Kindra Zhang - Last Filed: 12/25/17 12:57> - Attending Attestation seen, examined agree with above <Kathe Teixeira - Last Filed: 12/25/17 17:39>
--- NOTE | 2017-12-25 13:41 | P.PN ---
Subjective Interval history: alert no sob at rest Physical Exam Vital signs: Vital Signs 12/24/17 14:00 12/24/17 15:00 12/24/17 15:52 Temperature Pulse Rate 100 H 101 H Respiratory Rate 15 21 30 H Blood Pressure 132/63 115/58 L Pulse Oximetry 12/24/17 16:00 12/24/17 16:58 12/24/17 17:00 Temperature 99.2 F Pulse Rate 97 H 94 H 94 H Respiratory Rate 0 L 20 36 H Blood Pressure 115/59 L 123/66 Pulse Oximetry 94 L 98 12/24/17 18:00 12/24/17 18:37 12/24/17 19:00 Temperature 99.8 F H Pulse Rate 99 H 100 H 100 H Respiratory Rate 26 H 26 H 25 H Blood Pressure 124/60 124/60 128/61 Pulse Oximetry 90 L 92 L 73 L 12/24/17 19:02 12/24/17 19:03 12/24/17 20:00 Temperature 99.6 F 97.7 F Pulse Rate 101 H 100 H 99 H Respiratory Rate 26 H 21 24 Blood Pressure 115/59 L 115/59 L 120/72 Pulse Oximetry 92 L 97 94 L 12/24/17 21:00 12/24/17 21:46 12/24/17 21:55 Temperature Pulse Rate 111 H 104 H 104 H Respiratory Rate 35 H 24 28 H Blood Pressure 153/74 H 153/74 H Pulse Oximetry 82 L 86 L 92 L 12/24/17 22:00 12/24/17 23:00 12/25/17 00:00 Temperature 99.7 F H Pulse Rate 100 H 102 H 102 H Respiratory Rate 27 H 26 H 24 Blood Pressure 104/55 L 147/73 H 132/62 Pulse Oximetry 93 L 95 93 L 12/25/17 01:00 12/25/17 02:00 12/25/17 03:00 Temperature Pulse Rate 94 H 100 H 97 H Respiratory Rate 25 H 29 H 27 H Blood Pressure 142/67 H 133/71 133/67 Pulse Oximetry 95 88 L 89 L 12/25/17 04:00 12/25/17 04:25 12/25/17 05:00 Temperature 99.2 F Pulse Rate 99 H 97 H 93 H Respiratory Rate 26 H 24 25 H Blood Pressure 159/75 H 87/51 L Pulse Oximetry 91 L 94 L 93 L 12/25/17 06:00 12/25/17 07:00 12/25/17 08:00 Temperature Pulse Rate 91 H 93 H 100 H Respiratory Rate 25 H 29 H 27 H Blood Pressure 110/55 L 126/65 149/72 H Pulse Oximetry 92 L 12/25/17 09:00 12/25/17 09:44 12/25/17 10:00 Temperature Pulse Rate 96 H 94 H 99 H Respiratory Rate 26 H 23 31 H Blood Pressure 113/61 127/60 Pulse Oximetry 94 L 91 L 12/25/17 11:00 12/25/17 12:00 Temperature Pulse Rate 101 H 104 H Respiratory Rate 27 H 23 Blood Pressure 123/65 113/76 Pulse Oximetry 94 L 97 Intake & Output 12/24/17 12/25/17 12/25/17 18:59 06:59 18:59 Intake Total 1280 / 1280 2230 / 2230 1100 / 1100 Output Total 2750 / 2750 1475 / 1475 Balance -1470 / -1470 755 / 755 1100 / 1100 Weight 74.5 kg Intake: IV 1200 / 1200 1475 / 1475 1100 / 1100 D5W/1/2NS + KCL 20 mEq Inj 1, 1000 / 1000 1000 / 1000 1000 / 1000 000 ML @ 100 mls/hr IV.CONT . Q10H [facility] Rx#:[id number] Zosyn 4.5 GM Premix 4.5 gm In 200 / 200 200 / 200 100 / 100 100 ml @ 200 mls/hr IV.SIG Q6H [facility] Rx#:[id number] Tube Feeding 30 / 30 355 / 355 Tube Irrigant 50 / 50 Intake (Blood Product) Amt 0 / 0 400 / 400 Rbc As-3 Leukoreduced Unit 0 / 0 400 / 400 [id number] Output: Urine 250 / 250 Urine Amount (Catheter) 2500 / 2500 1475 / 1475 Indwelling Urethral Catheter 1150 / 1150 1475 / 1475 Straight 1350 / 1350 Other: # Voids 2 # Incontinent Voids 1 Date of Last Bowel Movement 12/23/17 12/23/17 12/25/17 - Constitutional no acute distress - Routine HEENT Exam Head: Present: normocephalic - Routine Neck Exam Present: supple - Routine Cardiovascular Exam Present: RRR, S1, S2 - Routine Abdominal Exam Present: soft, normoactive bowel sounds - Urinary Catheter Management Indwelling Urethral Catheter Cath placed during this visit: yes, but has since been removed by the nurse Reason for continuing: Acute urinary retention Insertion date: 12/24/17 Insertion time: 15:45 Removal date: 12/22/17 Removal time: 17:30 Straight Cath placed during this visit: yes Reason for continuing: Acute urinary retention Insertion date: 12/24/17 Insertion time: 13:00 Results - Labs CBC & Chem 7: 12/25/17 06:43 12/25/17 06:43 Laboratory Results - last 24 hr 12/23/17 12/24/17 12/24/17 16:50 12:37 14:28 WBC RBC Hgb Hct MCV MCH MCHC RDW Plt Count MPV Prelim Diff (Auto) Neut % (Auto) Lymph % (Auto) [place] % (Auto) Eos % (Auto) Baso % (Auto) Neut # (Auto) Lymph # (Auto) [place] # (Auto) Eos # (Auto) Baso # (Auto) WBC Differential Seg Neuts % (Manual) Band Neuts % (Manual) Lymphocytes % (Manual) Monocytes % (Manual) Eosinophils % (Manual) Basophils % (Manual) Metamyelocytes % (Man) Myelocytes % (Man) Abs Neuts (Manual) Nucleated RBCs/100 WBC Differential Comment Platelet Estimate Platelet Morphology Polychromasia PT INR APTT Sodium Potassium Chloride Carbon Dioxide Anion Gap BUN Creatinine Estimated GFR POC Glucose Random Glucose Calcium Phosphorus Magnesium Total Bilirubin AST ALT Alkaline Phosphatase Ammonia Total Creatine Kinase 35 L Total Protein Albumin Hepatitis A IgM Ab Hep Bs Antigen Hep B Core IgM Ab Hep C IgG Ab MTS Gel Crossmatch See Detail See Detail 12/24/17 12/24/17 12/24/17 14:28 18:21 18:24 WBC RBC Hgb 7.3 L Hct 22.3 L MCV MCH MCHC RDW Plt Count MPV Prelim Diff (Auto) Neut % (Auto) Lymph % (Auto) [place] % (Auto) Eos % (Auto) Baso % (Auto) Neut # (Auto) Lymph # (Auto) [place] # (Auto) Eos # (Auto) Baso # (Auto) WBC Differential Seg Neuts % (Manual) Band Neuts % (Manual) Lymphocytes % (Manual) Monocytes % (Manual) Eosinophils % (Manual) Basophils % (Manual) Metamyelocytes % (Man) Myelocytes % (Man) Abs Neuts (Manual) Nucleated RBCs/100 WBC Differential Comment Platelet Estimate Platelet Morphology Polychromasia PT INR APTT Sodium Potassium Chloride Carbon Dioxide Anion Gap BUN Creatinine Estimated GFR POC Glucose 126 H Random Glucose Calcium Phosphorus Magnesium Total Bilirubin AST ALT Alkaline Phosphatase Ammonia Total Creatine Kinase Total Protein Albumin Hepatitis A IgM Ab Nonreactive Hep Bs Antigen Nonreactive Hep B Core IgM Ab Nonreactive Hep C IgG Ab Reactive H MTS Gel Crossmatch 12/24/17 12/24/17 12/25/17 22:51 23:32 05:29 WBC RBC Hgb 8.5 L Hct 25.4 L MCV MCH MCHC RDW Plt Count MPV Prelim Diff (Auto) Neut % (Auto) Lymph % (Auto) [place] % (Auto) Eos % (Auto) Baso % (Auto) Neut # (Auto) Lymph # (Auto) [place] # (Auto) Eos # (Auto) Baso # (Auto) WBC Differential Seg Neuts % (Manual) Band Neuts % (Manual) Lymphocytes % (Manual) Monocytes % (Manual) Eosinophils % (Manual) Basophils % (Manual) Metamyelocytes % (Man) Myelocytes % (Man) Abs Neuts (Manual) Nucleated RBCs/100 WBC Differential Comment Platelet Estimate Platelet Morphology Polychromasia PT INR APTT Sodium Potassium Chloride Carbon Dioxide Anion Gap BUN Creatinine Estimated GFR POC Glucose 139 H 138 H Random Glucose Calcium Phosphorus Magnesium Total Bilirubin AST ALT Alkaline Phosphatase Ammonia Total Creatine Kinase Total Protein Albumin Hepatitis A IgM Ab Hep Bs Antigen Hep B Core IgM Ab Hep C IgG Ab MTS Gel Crossmatch 12/25/17 12/25/17 12/25/17 06:43 06:43 06:43 WBC 14.6 H RBC 2.60 L Hgb 8.4 L Hct 23.8 L MCV 91.6 MCH 32.2 MCHC 35.1 RDW 17.3 H Plt Count 545 H MPV 8.5 Prelim Diff (Auto) Slide review pending Neut % (Auto) 73.2 H Lymph % (Auto) 17.2 [place] % (Auto) 5.9 Eos % (Auto) 3.4 Baso % (Auto) 0.3 Neut # (Auto) 10.7 H Lymph # (Auto) 2.5 [place] # (Auto) 0.9 Eos # (Auto) 0.5 H Baso # (Auto) 0.0 WBC Differential Manual diff final Seg Neuts % (Manual) 69 Band Neuts % (Manual) 2 Lymphocytes % (Manual) 15 Monocytes % (Manual) 4 Eosinophils % (Manual) 2 Basophils % (Manual) 1 Metamyelocytes % (Man) 1 Myelocytes % (Man) 6 H Abs Neuts (Manual) 11.4 H Nucleated RBCs/100 WBC 1 H Differential Comment . Platelet Estimate High H Platelet Morphology Normal Polychromasia 2.2 H PT 13.0 H INR 1.3 APTT 23.1 L Sodium 143 Potassium 3.4 L Chloride 109 H Carbon Dioxide 25.9 Anion Gap 8 BUN 10 Creatinine 0.67 Estimated GFR Greater than 89 POC Glucose Random Glucose 125 H Calcium 7.8 L Phosphorus 2.3 L Magnesium 2.0 Total Bilirubin 0.5 AST 195 H ALT 506 H Alkaline Phosphatase 124 H Ammonia Total Creatine Kinase Total Protein 6.1 L Albumin 2.1 L Hepatitis A IgM Ab Hep Bs Antigen Hep B Core IgM Ab Hep C IgG Ab MTS Gel Crossmatch 12/25/17 12/25/17 06:43 12:44 WBC RBC Hgb Hct MCV MCH MCHC RDW Plt Count MPV Prelim Diff (Auto) Neut % (Auto) Lymph % (Auto) [place] % (Auto) Eos % (Auto) Baso % (Auto) Neut # (Auto) Lymph # (Auto) [place] # (Auto) Eos # (Auto) Baso # (Auto) WBC Differential Seg Neuts % (Manual) Band Neuts % (Manual) Lymphocytes % (Manual) Monocytes % (Manual) Eosinophils % (Manual) Basophils % (Manual) Metamyelocytes % (Man) Myelocytes % (Man) Abs Neuts (Manual) Nucleated RBCs/100 WBC Differential Comment Platelet Estimate Platelet Morphology Polychromasia PT INR APTT Sodium Potassium Chloride Carbon Dioxide Anion Gap BUN Creatinine Estimated GFR POC Glucose 158 H Random Glucose Calcium Phosphorus Magnesium Total Bilirubin AST ALT Alkaline Phosphatase Ammonia 38 H Total Creatine Kinase Total Protein Albumin Hepatitis A IgM Ab Hep Bs Antigen Hep B Core IgM Ab Hep C IgG Ab MTS Gel Crossmatch - Imaging Impressions Liver Ultrasound 12/24/17 00:00 CONCLUSION: 1. Negative ultrasound liver. Chest X-Ray 12/25/17 06:00 CONCLUSION: 1. Improved right lower lobe airspace disease. 2. Improved prominence of the right [place] which may reflect improving adenopathy. Assessment and Plan - Plan IMPRESSION RESPIRATORY FAILURE PNA HILAR ADENOPATHY HEAD AND NECK CA PLAN O2 ANTIBX PULM TOILET BRONCHOSCPY WHEN ON FLOOR
[2017-12-25] MEDS: Mirtazapine 15 MG Tablet PO SCH (20:02)
[2017-12-25 20:53] LABS: Hematocrit 25.3 % (39.0-51.0); Hemoglobin 8.8 gm/dL (13.0-17.0)
[2017-12-26] MEDS: Oral Hygiene Kit OROPHARYNG SCH ×4 (00:13→15:45)
[2017-12-26] MEDS: Piperacil/Tazo 4.5 GM Premix 4.5 GM/100 ML BAG IV.SIG SCH ×4 (03:25→22:17)
[2017-12-26] MEDS: fentaNYL Citrate Inj 100 MCG/2 ML Ampul IV.PUSH PRN (03:25)
[2017-12-26] MEDS: Insulin NovoLOG Aspart Correctional Sugar Inj SQ SCH ×3 (05:46→18:07)
--- NOTE | 2017-12-26 08:59 | P.PNID ---
Subjective Remarks: Mr. 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 Patient was brought to the emergency room by EMS on 12/11/17 after he was found unresponsive at home with copious oral secretions identified as tube feeding. When EMS arrived patient had spontaneous respirations, palpable pulse and was hypotensive with SBP in the 90s , and decreased level of consciousness. O2 saturation was 60% at scene, and he was intubated and copius secretions were suctioned. Patient is dysphagic, he only takes his medications and feedings through a PEG tube. Per ER report patient was last seen normal in the morning on 12/11 and it is not known how long he had been unresponsive. Patient was found with x3 patches of 25mcg Fentanyl patches on him. According to his he is supposed to be on Fentanyl 25mcg for 72 hrs. 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 He does not follow with an oncologist but he follows with ENT Dr. Gonzalez. ER Course: * Vital signs: Temperature 97.8F, pulse 78, respirations 20, BP 92/51, O2 saturation 100% * Chest x-ray revealed underinflation with perihilar interstitial prominence which could be related to the underinflation could represent pulmonary edema. No airspace consolidation is identified. * ABG results pH 7.25, PCO2 45, PO2 100, bicarb 19, base excess -7, O2 sats 95% on vent settings PRVC/AC14/550/IT 1.0/8/100% * Laboratory workup revealed WBC 9.8, hemoglobin 13.4, hematocrit 38.7, platelet count 194, sodium 141, potassium 3.2, BUN/creatinine 23/1.37, lactic acid 12.4, calcium 7.4, AST 152, ALT 136, alkaline phosphatase 85, total protein 6.8, albumin 3.2, troponin 0 0.04, T10 0.7, INR 1.1, APTT 26.8. CT cervical spine on 12/12/17 revealed no acute cervical spine abnormality. Head CT on 12/12/17 revealed no acute intracranial abnormality. Laboratory workup today revealing WBC 10.5, hemoglobin 12.8, hematocrit 37.0, platelet count 208, Cr 0.83. Infectious disease is consulted for evaluation and Mment of recurrent aspiration or HCAP in an Immune compromised patient. Overnight events reviewed No fevers No rash No diarrhea On Room air Speech not clear. Antibiotics: Zosyn IV Lines: Lines ok Past Medical History: reviewed Allergies/Adverse Reactions: Allergies morphine Allergy (Intermediate, Verified 03/04/17 21:32) Confusion HALLICINATES hydromorphone Adverse Reaction (Intermediate, Verified 12/11/17 22:23) Confusion HALLUCIATES CONFUSION Objective Vital Signs 12/25/17 09:00 12/25/17 09:44 12/25/17 10:00 Temperature Pulse Rate 96 H 94 H 99 H Respiratory Rate 26 H 23 31 H Blood Pressure 113/61 127/60 Pulse Oximetry 94 L 91 L 12/25/17 11:00 12/25/17 12:00 12/25/17 12:05 Temperature 97.6 F Pulse Rate 101 H 104 H Respiratory Rate 27 H 23 Blood Pressure 123/65 113/76 Pulse Oximetry 94 L 97 12/25/17 13:00 12/25/17 14:00 12/25/17 15:00 Temperature Pulse Rate 97 H 91 H 88 Respiratory Rate 21 26 H 25 H Blood Pressure 89/58 L 120/58 L 111/58 L Pulse Oximetry 97 94 L 95 12/25/17 16:00 12/25/17 16:06 12/25/17 17:00 Temperature 98.1 F Pulse Rate 93 H 92 H 97 H Respiratory Rate 25 H 22 22 Blood Pressure 115/57 L 114/62 Pulse Oximetry 96 96 12/25/17 18:00 12/25/17 19:00 12/25/17 20:00 Temperature 97.9 F Pulse Rate 97 H 97 H 115 H Respiratory Rate 27 H 31 H 28 H Blood Pressure 138/64 143/68 H 161/73 H Pulse Oximetry 90 L 95 92 L 12/25/17 20:13 12/25/17 21:00 12/25/17 21:15 Temperature Pulse Rate 103 H 107 H Respiratory Rate 32 H 21 Blood Pressure 151/70 H 131/63 Pulse Oximetry 84 L 95 94 L 12/25/17 22:00 12/25/17 23:00 12/25/17 23:45 Temperature Pulse Rate 98 H 96 H Respiratory Rate 28 H 27 H Blood Pressure 117/57 L 130/63 Pulse Oximetry 93 L 95 94 L 12/26/17 00:00 12/26/17 00:13 12/26/17 01:00 Temperature 98.5 F Pulse Rate 92 H 94 H Respiratory Rate 24 24 21 Blood Pressure 110/62 144/73 H Pulse Oximetry 96 97 12/26/17 02:00 12/26/17 03:00 12/26/17 03:45 Temperature Pulse Rate 93 H 93 H 97 H Respiratory Rate 25 H 26 H 24 Blood Pressure 138/68 154/77 H Pulse Oximetry 98 97 94 L 12/26/17 04:00 12/26/17 06:00 Temperature 97.7 F Pulse Rate 101 H 100 H Respiratory Rate 26 H Blood Pressure 130/60 Pulse Oximetry 95 Intake & Output 12/25/17 12/26/17 12/26/17 18:59 06:59 18:59 Intake Total 1873 / 1873 1993 / 1993 Output Total 2250 / 2250 1575 / 1575 Balance -377 / -377 419 / 419 Weight 73 kg Intake: IV 1200 / 1200 1200 / 1200 D5W/1/2NS + KCL 20 mEq Inj 1, 1000 / 1000 1000 / 1000 000 ML @ 100 mls/hr IV.CONT . Q10H [facility] Rx#:[id number] Zosyn 4.5 GM Premix 4.5 gm In 200 / 200 200 / 200 100 ml @ 200 mls/hr IV.SIG Q6H [facility] Rx#:[id number] Oral 0 / 0 Tube Feeding 553 / 553 794 / 794 Tube Irrigant 120 / 120 Output: Stool 250 / 250 Urine Amount (Catheter) 1999 1575 / 1575 Indwelling Urethral Catheter 1999 1575 / 1575 Other: Date of Last Bowel Movement 12/25/17 12/25/17 # Bowel Movements 2 12/18/17 05:14 Blood - Peripheral Aerobic Blood Culture - Final No growth in 5 days 12/18/17 05:14 Blood - Peripheral Anaerobic Blood Culture - Final QNS - See aerobic report. 12/18/17 05:05 Blood - Peripheral Aerobic Blood Culture - Final No growth in 5 days 12/18/17 05:05 Blood - Peripheral Anaerobic Blood Culture - Final No growth in 5 days Lab - Hematology Results 12/24/17 12/24/17 12/24/17 11:30 18:21 22:51 WBC RBC Hgb 7.3 L 7.3 L 8.5 L Hct 21.8 L 22.3 L 25.4 L MCV MCH MCHC RDW Plt Count MPV Prelim Diff (Auto) Neut % (Auto) Lymph % (Auto) [place] % (Auto) Eos % (Auto) Baso % (Auto) Neut # (Auto) Lymph # (Auto) [place] # (Auto) Eos # (Auto) Baso # (Auto) WBC Differential Seg Neuts % (Manual) Band Neuts % (Manual) Lymphocytes % (Manual) Monocytes % (Manual) Eosinophils % (Manual) Basophils % (Manual) Metamyelocytes % (Man) Myelocytes % (Man) Abs Neuts (Manual) Nucleated RBCs/100 WBC Differential Comment Platelet Estimate Platelet Morphology Polychromasia 12/25/17 12/25/17 06:43 20:25 WBC 14.6 H RBC 2.60 L Hgb 8.4 L 8.8 L Hct 23.8 L 25.3 L MCV 91.6 MCH 32.2 MCHC 35.1 RDW 17.3 H Plt Count 545 H MPV 8.5 Prelim Diff (Auto) Slide review pending Neut % (Auto) 73.2 H Lymph % (Auto) 17.2 [place] % (Auto) 5.9 Eos % (Auto) 3.4 Baso % (Auto) 0.3 Neut # (Auto) 10.7 H Lymph # (Auto) 2.5 [place] # (Auto) 0.9 Eos # (Auto) 0.5 H Baso # (Auto) 0.0 WBC Differential Manual diff final Seg Neuts % (Manual) 69 Band Neuts % (Manual) 2 Lymphocytes % (Manual) 15 Monocytes % (Manual) 4 Eosinophils % (Manual) 2 Basophils % (Manual) 1 Metamyelocytes % (Man) 1 Myelocytes % (Man) 6 H Abs Neuts (Manual) 11.4 H Nucleated RBCs/100 WBC 1 H Differential Comment . Platelet Estimate High H Platelet Morphology Normal Polychromasia 2.2 H Lab - Chemistry Results 12/24/17 12/24/17 12/24/17 12:47 14:28 18:24 Sodium Potassium Chloride Carbon Dioxide Anion Gap BUN Creatinine Estimated GFR POC Glucose 138 H 126 H Random Glucose Calcium Phosphorus Magnesium Total Bilirubin AST ALT Alkaline Phosphatase Ammonia Total Creatine Kinase 35 L Total Protein Albumin 12/24/17 12/25/17 12/25/17 23:32 05:29 06:43 Sodium 143 Potassium 3.4 L Chloride 109 H Carbon Dioxide 25.9 Anion Gap 8 BUN 10 Creatinine 0.67 Estimated GFR Greater than 89 POC Glucose 139 H 138 H Random Glucose 125 H Calcium 7.8 L Phosphorus 2.3 L Magnesium 2.0 Total Bilirubin 0.5 AST 195 H ALT 506 H Alkaline Phosphatase 124 H Ammonia Total Creatine Kinase Total Protein 6.1 L Albumin 2.1 L 12/25/17 12/25/17 12/25/17 06:43 12:44 17:19 Sodium Potassium Chloride Carbon Dioxide Anion Gap BUN Creatinine Estimated GFR POC Glucose 158 H 110 Random Glucose Calcium Phosphorus Magnesium Total Bilirubin AST ALT Alkaline Phosphatase Ammonia 38 H Total Creatine Kinase Total Protein Albumin 12/25/17 12/26/17 23:31 05:39 Sodium Potassium Chloride Carbon Dioxide Anion Gap BUN Creatinine Estimated GFR POC Glucose 153 H 145 H Random Glucose Calcium Phosphorus Magnesium Total Bilirubin AST ALT Alkaline Phosphatase Ammonia Total Creatine Kinase Total Protein Albumin Imaging: ITS Impressions Cervical Spine CT 12/12/17 00:00 CONCLUSION: No acute cervical spine abnormality is identified. Head CTA 12/12/17 00:00 CONCLUSION: 1. Negative CTA Head. Neck CTA 12/12/17 00:00 CONCLUSION: 1. Atelectatic calcifications and areas of ulceration involving the origin of the right internal carotid artery with approximate 70-80% stenosis right at the takeoff of the right ICA prior to the start of the patient's internal coronary stent. Head CT 12/12/17 12:29 CONCLUSION: 1. Subtle areas of low attenuation are now seen in the right frontal and occipital regions of concern for areas of evolving infarction. There is no hemorrhage or mass effect. . Chest CTA 12/21/17 00:00 CONCLUSION: 1. Apparent right subclavian artery. 2. Mildly enlarged subcarinal and right hilar lymph nodes. adenopathy. 3. Scattered pulmonary infiltrates including right lower lobe consolidation with air bronchogram formation. 4. Atherosclerosis. 5. No evidence for pulmonary embolism. Liver Ultrasound 12/24/17 00:00 CONCLUSION: 1. Negative ultrasound liver. Chest X-Ray 12/25/17 06:00 CONCLUSION: 1. Improved right lower lobe airspace disease. 2. Improved prominence of the right [place] which may reflect improving adenopathy. Physical Exam: GENERAL: Well-nourished well-developed, not in acute distress SKIN: Cool and dry, no generalized rash HEAD: Atraumatic. Normocephalic. No temporal or scalp tenderness. EYES: Pupils equal round and reactive. Scleral icterus. No injection or drainage. No petechia ENT: Right side hemiglossectomy, voice garbled and not clear. NECK: Surgical scar intact with no e.o infection CARDIOVASCULAR: HS audible. RESPIRATORY: Clear to auscultation bilaterally. GASTROINTESTINAL: Abdomen soft nontender. MUSCULOSKELETAL: Extremities without clubbing, cyanosis. NEUROLOGICAL: Alert oriented 3. Nonfocal. Psych cooperative PEG tube site ok. IV line sites ok. Assessment and Plan - Plan Aspiration Pneumonia on admission HCAP E.coli, PSAE and Strep lung infection Acute resp failure on admission ? due to excessive fentanyl patch dose. Head neck cancer ? in remission Recs Continue Zosyn IV Follow cultures Follow clinical course. Will check Procalcitonin on Tuesday. Check CXR in am. rachel Ramos if Procalcitonin normal ok to stop antibiotics.
[2017-12-26] MEDS: clonazePAM 0.5 MG Tablet PO SCH ×3 (09:08→18:06)
[2017-12-26] MEDS: Senna/Docusate Sodium 8.6/50 MG Tablet PO SCH ×2 (09:08→22:18)
[2017-12-26] MEDS: amLODIPine 10 MG Tablet PO SCH (09:08)
[2017-12-26] MEDS: Pantoprazole Inj 40 MG Vial IV.PUSH SCH ×2 (09:09→22:18)
[2017-12-26] MEDS: KCL 20 mEq/D5W/NaCl 0.45% Inj 1,000 ML IV.CONT SCH ×2 (09:10→18:07)
[2017-12-26] MEDS: Chlorhexidine 0.12% Oral Kit 15 ML UDC OROPHARYNG SCH ×2 (09:10→22:19)
[2017-12-26] MEDS: Mupirocin 2% Nasal Oint Topical Syringe EACH NARE SCH ×2 (09:11→22:18)
--- NOTE | 2017-12-26 10:07 | P.PNGI ---
Subjective Interval history: Pt is resting in bed, not voicing any concerns, no nausea, no vomiting, no abd pain. No bm since yesterday. Tolerating TF okay <Kindra Zhang - Last Filed: 12/26/17 09:58> Physical Exam Vital signs: Vital Signs 12/25/17 10:00 12/25/17 11:00 12/25/17 12:00 Temperature Pulse Rate 99 H 101 H 104 H Respiratory Rate 31 H 27 H 23 Blood Pressure 127/60 123/65 113/76 Pulse Oximetry 91 L 94 L 97 12/25/17 12:05 12/25/17 13:00 12/25/17 14:00 Temperature 97.6 F Pulse Rate 97 H 91 H Respiratory Rate 21 26 H Blood Pressure 89/58 L 120/58 L Pulse Oximetry 97 94 L 12/25/17 15:00 12/25/17 16:00 12/25/17 16:06 Temperature 98.1 F Pulse Rate 88 93 H 92 H Respiratory Rate 25 H 25 H 22 Blood Pressure 111/58 L 115/57 L Pulse Oximetry 95 96 12/25/17 17:00 12/25/17 18:00 12/25/17 19:00 Temperature Pulse Rate 97 H 97 H 97 H Respiratory Rate 22 27 H 31 H Blood Pressure 114/62 138/64 143/68 H Pulse Oximetry 96 90 L 95 12/25/17 20:00 12/25/17 20:13 12/25/17 21:00 Temperature 97.9 F Pulse Rate 115 H 103 H 107 H Respiratory Rate 28 H 32 H 21 Blood Pressure 161/73 H 151/70 H 131/63 Pulse Oximetry 92 L 84 L 95 12/25/17 21:15 12/25/17 22:00 12/25/17 23:00 Temperature Pulse Rate 98 H 96 H Respiratory Rate 28 H 27 H Blood Pressure 117/57 L 130/63 Pulse Oximetry 94 L 93 L 95 12/25/17 23:45 12/26/17 00:00 12/26/17 00:13 Temperature 98.5 F Pulse Rate 92 H Respiratory Rate 24 24 Blood Pressure 110/62 Pulse Oximetry 94 L 96 12/26/17 01:00 12/26/17 02:00 12/26/17 03:00 Temperature Pulse Rate 94 H 93 H 93 H Respiratory Rate 21 25 H 26 H Blood Pressure 144/73 H 138/68 154/77 H Pulse Oximetry 97 98 97 12/26/17 03:45 12/26/17 04:00 12/26/17 06:00 Temperature 97.7 F Pulse Rate 97 H 101 H 100 H Respiratory Rate 24 26 H Blood Pressure 130/60 Pulse Oximetry 94 L 95 12/26/17 09:24 Temperature Pulse Rate 96 H Respiratory Rate 18 Blood Pressure Pulse Oximetry 95 Intake & Output 12/25/17 12/26/17 12/26/17 18:59 06:59 18:59 Intake Total 1873 / 1873 1993 / 1993 1000 / 1000 Output Total 2250 / 2250 1575 / 1575 Balance -377 / -377 419 / 419 1000 / 1000 Weight 73 kg Intake: IV 1200 / 1200 1200 / 1200 1000 / 1000 D5W/1/2NS + KCL 20 mEq Inj 1, 1000 / 1000 1000 / 1000 1000 / 1000 000 ML @ 100 mls/hr IV.CONT . Q10H [facility]ATH[facility] Rx#:[id number] Zosyn 4.5 GM Premix 4.5 gm In 200 / 200 200 / 200 100 ml @ 200 mls/hr IV.SIG Q6H HEATHER Rx#:[id number] Oral 0 / 0 Tube Feeding 553 / 553 794 / 794 Tube Irrigant 120 / 120 Output: Stool 250 / 250 Urine Amount (Catheter) 1999 1575 / 1575 Indwelling Urethral Catheter 1999 1575 / 1575 Other: Date of Last Bowel Movement 12/25/17 12/25/17 # Bowel Movements 2 - Constitutional no acute distress - Routine HEENT Exam Head: Present: normocephalic - Routine Respiratory Exam Present: rhonchi, wheezes, distant breath sounds - Routine Cardiovascular Exam Present: RRR - Routine Abdominal Exam Present: soft, normoactive bowel sounds. Absent: tenderness, distended Comments: PEG tube - Routine Skin Exam Present: intact, dry. Absent: jaundice - Routine Neurological Exam Present: alert, oriented X3 - Urinary Catheter Management Indwelling Urethral Catheter Cath placed during this visit: yes, but has since been removed by the nurse Reason for continuing: Acute urinary retention Insertion date: 12/24/17 Insertion time: 15:45 Removal date: 12/22/17 Removal time: 17:30 Straight Cath placed during this visit: yes Reason for continuing: Acute urinary retention Insertion date: 12/24/17 Insertion time: 13:00 <Kindra Zhang - Last Filed: 12/26/17 09:58> Vital signs: Vital Signs 12/25/17 15:00 12/25/17 16:00 12/25/17 16:06 Temperature 98.1 F Pulse Rate 88 93 H 92 H Respiratory Rate 25 H 25 H 22 Blood Pressure 111/58 L 115/57 L Pulse Oximetry 95 96 12/25/17 17:00 12/25/17 18:00 12/25/17 19:00 Temperature Pulse Rate 97 H 97 H 97 H Respiratory Rate 22 27 H 31 H Blood Pressure 114/62 138/64 143/68 H Pulse Oximetry 96 90 L 95 12/25/17 20:00 12/25/17 20:13 12/25/17 21:00 Temperature 97.9 F Pulse Rate 115 H 103 H 107 H Respiratory Rate 28 H 32 H 21 Blood Pressure 161/73 H 151/70 H 131/63 Pulse Oximetry 92 L 84 L 95 12/25/17 21:15 12/25/17 22:00 12/25/17 23:00 Temperature Pulse Rate 98 H 96 H Respiratory Rate 28 H 27 H Blood Pressure 117/57 L 130/63 Pulse Oximetry 94 L 93 L 95 12/25/17 23:45 12/26/17 00:00 12/26/17 00:13 Temperature 98.5 F Pulse Rate 92 H Respiratory Rate 24 24 Blood Pressure 110/62 Pulse Oximetry 94 L 96 12/26/17 01:00 12/26/17 02:00 12/26/17 03:00 Temperature Pulse Rate 94 H 93 H 93 H Respiratory Rate 21 25 H 26 H Blood Pressure 144/73 H 138/68 154/77 H Pulse Oximetry 97 98 97 12/26/17 03:45 12/26/17 04:00 12/26/17 05:00 Temperature 97.7 F Pulse Rate 97 H 101 H 102 H Respiratory Rate 24 26 H 28 H Blood Pressure 130/60 116/61 Pulse Oximetry 94 L 95 93 L 12/26/17 06:00 12/26/17 07:00 12/26/17 08:00 Temperature 98.4 F Pulse Rate 100 H 100 H 98 H Respiratory Rate 26 H 24 28 H Blood Pressure 164/77 H 134/67 138/65 Pulse Oximetry 95 95 95 12/26/17 09:00 12/26/17 09:24 12/26/17 10:00 Temperature Pulse Rate 98 H 96 H 99 H Respiratory Rate 26 H 18 20 Blood Pressure 151/74 H 132/62 Pulse Oximetry 95 95 97 Intake & Output 12/25/17 12/26/17 12/26/17 18:59 06:59 18:59 Intake Total 1873 / 1873 1993 / 1993 1000 / 1000 Output Total 2250 / 2250 1575 / 1575 Balance -377 / -377 419 / 419 1000 / 1000 Weight 73 kg Intake: IV 1200 / 1200 1200 / 1200 1000 / 1000 D5W/1/2NS + KCL 20 mEq Inj 1, 1000 / 1000 1000 / 1000 1000 / 1000 000 ML @ 100 mls/hr IV.CONT . Q10H [facility]ATH[facility] Rx#:[id number] Zosyn 4.5 GM Premix 4.5 gm In 200 / 200 200 / 200 100 ml @ 200 mls/hr IV.SIG Q6H [facility]ATH[facility] Rx#:[id number] Oral 0 / 0 Tube Feeding 553 / 553 794 / 794 Tube Irrigant 120 / 120 Output: Stool 250 / 250 Urine Amount (Catheter) 1999 1575 / 1575 Indwelling Urethral Catheter 1999 1575 / 1575 Other: Date of Last Bowel Movement 12/25/17 12/25/17 12/25/17 # Bowel Movements 2 - Urinary Catheter Management Indwelling Urethral Catheter Cath placed during this visit: no Straight Cath placed during this visit: no <Joe Sanders - Last Filed: 12/26/17 14:52> Results - Labs CBC & Chem 7: 12/25/17 20:25 12/25/17 06:43 Laboratory Results - last 24 hr 12/25/17 12/25/17 12/25/17 12:44 17:19 20:25 Hgb 8.8 L Hct 25.3 L POC Glucose 158 H 110 12/25/17 12/26/17 23:31 05:39 Hgb Hct POC Glucose 153 H 145 H <Kindra Zhang - Last Filed: 12/26/17 09:58> - Labs CBC & Chem 7: 12/25/17 20:25 12/25/17 06:43 Laboratory Results - last 24 hr 12/25/17 12/25/17 12/25/17 17:19 20:25 23:31 Hgb 8.8 L Hct 25.3 L POC Glucose 110 153 H Procalcitonin 12/26/17 12/26/17 12/26/17 05:39 10:38 13:09 Hgb Hct POC Glucose 145 H 148 H Procalcitonin 0.13 H <Joe Sanders - Last Filed: 12/26/17 14:52> Assessment and Plan - Plan Assessment: - Anemia with reports of one episode of melena H/H currently .05/07.4 Pt reportedly had been taking about 6 tablets of ASA daily prior to arrival because he states that and his Fentanyl patches are the only thing that helps with his pain. According to RN pt had one loose, black tarry BM earlier today, it was tested and came back Hemoccult positive. At present, pt is resting in bed, denies any nausea, vomiting, abdominal pain. 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 He currently receives everything through his PEG, according to RN he has been tolerating his tube feeding. Pt does thing that he has had previous EGD but believe it was in the 80s. Of note, he is on Plavix and ASA, states carotid stents, currently on hold. At time of my exam pt is on 6L o2 via NC 12/26/17 - Anemia with episodes of melena. No BM since yesterday, no signs of active bleed no nausea, no vomiting, tolerating TF okay, hgb stable yesterday 8.8, received total of 2 units, last one on 12/24 - Leukocytosis/ pneumonia/ recurrent aspiration- ID on the case, PEG tube - Chronic dysphagia requiring PEG tube nutrition - Acute COPD exacerbation- Pulmonology on the case - Healthcare associated Aspiration pneumonia- abx, ID Plan: TF ok to resume blood thinner risk of cardiac events outweighs risk of gi bleeding , preferably Lovenox EGD when more stable, still on a high amount of oxygen via NC Monitor labs and transfuse as needed for now Protonix Notify GI for active bleed Further recommendations to follow Patient was seen by myself and Dr. Sanders <Kindra Zhang - Last Filed: 12/26/17 09:58> - Attending Attestation Patient seen and examined Agree with above Continue with current supportive care Monitor labs No evidence of active bleeding at this point EGD when more stable <Joe Sanders E - Last Filed: 12/26/17 14:52>
--- NOTE | 2017-12-26 10:09 | P.PNIM ---
Subjective Interval history: more alert. cooperative at bedside Physical Exam Vital signs: Vital Signs 12/25/17 11:00 12/25/17 12:00 12/25/17 12:05 Temperature 97.6 F Pulse Rate 101 H 104 H Respiratory Rate 27 H 23 Blood Pressure 123/65 113/76 Pulse Oximetry 94 L 97 12/25/17 13:00 12/25/17 14:00 12/25/17 15:00 Temperature Pulse Rate 97 H 91 H 88 Respiratory Rate 21 26 H 25 H Blood Pressure 89/58 L 120/58 L 111/58 L Pulse Oximetry 97 94 L 95 12/25/17 16:00 12/25/17 16:06 12/25/17 17:00 Temperature 98.1 F Pulse Rate 93 H 92 H 97 H Respiratory Rate 25 H 22 22 Blood Pressure 115/57 L 114/62 Pulse Oximetry 96 96 12/25/17 18:00 12/25/17 19:00 12/25/17 20:00 Temperature 97.9 F Pulse Rate 97 H 97 H 115 H Respiratory Rate 27 H 31 H 28 H Blood Pressure 138/64 143/68 H 161/73 H Pulse Oximetry 90 L 95 92 L 12/25/17 20:13 12/25/17 21:00 12/25/17 21:15 Temperature Pulse Rate 103 H 107 H Respiratory Rate 32 H 21 Blood Pressure 151/70 H 131/63 Pulse Oximetry 84 L 95 94 L 12/25/17 22:00 12/25/17 23:00 12/25/17 23:45 Temperature Pulse Rate 98 H 96 H Respiratory Rate 28 H 27 H Blood Pressure 117/57 L 130/63 Pulse Oximetry 93 L 95 94 L 12/26/17 00:00 12/26/17 00:13 12/26/17 01:00 Temperature 98.5 F Pulse Rate 92 H 94 H Respiratory Rate 24 24 21 Blood Pressure 110/62 144/73 H Pulse Oximetry 96 97 12/26/17 02:00 12/26/17 03:00 12/26/17 03:45 Temperature Pulse Rate 93 H 93 H 97 H Respiratory Rate 25 H 26 H 24 Blood Pressure 138/68 154/77 H Pulse Oximetry 98 97 94 L 12/26/17 04:00 12/26/17 06:00 12/26/17 09:24 Temperature 97.7 F Pulse Rate 101 H 100 H 96 H Respiratory Rate 26 H 18 Blood Pressure 130/60 Pulse Oximetry 95 95 Intake & Output 12/25/17 12/26/17 12/26/17 18:59 06:59 18:59 Intake Total 1873 / 1873 1993 / 1993 1000 / 1000 Output Total 2250 / 2250 1575 / 1575 Balance -377 / -377 419 / 419 1000 / 1000 Weight 73 kg Intake: IV 1200 / 1200 1200 / 1200 1000 / 1000 D5W/1/2NS + KCL 20 mEq Inj 1, 1000 / 1000 1000 / 1000 1000 / 1000 000 ML @ 100 mls/hr IV.CONT . Q10H [facility]ATH[facility] Rx#:[id number] Zosyn 4.5 GM Premix 4.5 gm In 200 / 200 200 / 200 100 ml @ 200 mls/hr IV.SIG Q6H HEATH[facility] Rx#:[id number] Oral 0 / 0 Tube Feeding 553 / 553 794 / 794 Tube Irrigant 120 / 120 Output: Stool 250 / 250 Urine Amount (Catheter) 1999 1575 / 1575 Indwelling Urethral Catheter 1999 1575 / 1575 Other: Date of Last Bowel Movement 12/25/17 12/25/17 # Bowel Movements 2 nad heart reg lung good air entry gary abd peg tube clean/no redness or drainage ext no edema mccray. yellow urine. - Urinary Catheter Management Indwelling Urethral Catheter Cath placed during this visit: yes, but has since been removed by the nurse Reason for continuing: Acute urinary retention Insertion date: 12/24/17 Insertion time: 15:45 Removal date: 12/22/17 Removal time: 17:30 Straight Cath placed during this visit: yes Reason for continuing: Acute urinary retention Insertion date: 12/24/17 Insertion time: 13:00 Results - Labs CBC & Chem 7: 12/25/17 20:25 12/25/17 06:43 Laboratory Results - last 24 hr 12/25/17 12/25/17 12/25/17 12:44 17:19 20:25 Hgb 8.8 L Hct 25.3 L POC Glucose 158 H 110 12/25/17 12/26/17 23:31 05:39 Hgb Hct POC Glucose 153 H 145 H Assessment and Plan - Assessment (1) Aspiration pneumonia Code(s): J69.0 - Pneumonitis due to inhalation of food and vomit Status: Acute Plan: 67-year-old male with past medical history of head and neck cancer presents from home after being found unresponsive. Patient was found by EMS to have spontaneous respirations palpable pulse and blood pressure but markedly decreased level of consciousness, hypotensive with large amount of tube feeding contents in the oral cavity. Patient has history of head neck cancer and takes no oral medications takes all medications and feedings through PEG tube. Patient was last seen normal approximately at breakfast time on Tuesday and then family members found him unresponsive. Unknown downtime. Upon EMS arrival patient was assessed and suctioned and initial O2 saturations were 60% patient was placed on supplemental oxygen with improved ventilations and then subsequently intubated with a 7.5 endotracheal tube. Per EMS copious amounts of suctioning was performed and large amounts of tube feeding were suctioned. Aspiration pneumonia Acute encephalopathy acute cva right frontal/occipital. 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 Chronic benzodiazepine use, Chronic opioid use Depression disorder urine retention melanotic stool. Precedex titrated off. on klononpin scheduled Fentanyl patch 25 mcg/h home dose. Seroquel 50 mg every 12 hourly as needed for agitation. ct head no acute cva initially....repeat CT brain shows concern for evolving cva in occipital/frontal areas. cta showed 80percent obstruction and areas of ulceration proximal to right carotid stent Unable to do MRI brain secondary to retained metal and I according to . Has bilateral internal carotid artery stents. CTA revealed right carotid artery stenosis proximal to internal carotid artery stent. Vascular surgery consult requested by neurology. On aspirin, Plavix per neurology. Vascular planning to reevaluate intervention when stable Extubated on 12/14. moved back to ICU for ongoing aspiration. mccray for urine retention. attempt removal when more active PT consultation prn oral suction. dvt prophylaxis. cont nebs. cont zosyn for pneumonia..discussed with ID. probably stop in next 24hrs. cont tube feeding support. cont reglan resume lovenox egd when more stable planned. move out icu soon. Elevated troponin Essential hypertension Coronary artery disease Bilateral carotid artery stents Troponin peaked at 0.39. EKG revealed no acute ST changes or bundle-branch blocks Continue amlodipine 10 mg daily/home medication for hypertension Limited 2D echocardiogram. : (2) Respiratory failure Code(s): J96.90 - Respiratory failure, unspecified, unspecified whether with hypoxia or hypercapnia Status: Acute (3) Altered mental status Code(s): R41.82 - Altered mental status, unspecified Status: Acute
--- NOTE | 2017-12-26 16:20 | P.PN ---
Subjective Interval history: alert nad o2 via mask Physical Exam Vital signs: Vital Signs 12/25/17 17:00 12/25/17 18:00 12/25/17 19:00 Temperature Pulse Rate 97 H 97 H 97 H Respiratory Rate 22 27 H 31 H Blood Pressure 114/62 138/64 143/68 H Pulse Oximetry 96 90 L 95 12/25/17 20:00 12/25/17 20:13 12/25/17 21:00 Temperature 97.9 F Pulse Rate 115 H 103 H 107 H Respiratory Rate 28 H 32 H 21 Blood Pressure 161/73 H 151/70 H 131/63 Pulse Oximetry 92 L 84 L 95 12/25/17 21:15 12/25/17 22:00 12/25/17 23:00 Temperature Pulse Rate 98 H 96 H Respiratory Rate 28 H 27 H Blood Pressure 117/57 L 130/63 Pulse Oximetry 94 L 93 L 95 12/25/17 23:45 12/26/17 00:00 12/26/17 00:13 Temperature 98.5 F Pulse Rate 92 H Respiratory Rate 24 24 Blood Pressure 110/62 Pulse Oximetry 94 L 96 12/26/17 01:00 12/26/17 02:00 12/26/17 03:00 Temperature Pulse Rate 94 H 93 H 93 H Respiratory Rate 21 25 H 26 H Blood Pressure 144/73 H 138/68 154/77 H Pulse Oximetry 97 98 97 12/26/17 03:45 12/26/17 04:00 12/26/17 05:00 Temperature 97.7 F Pulse Rate 97 H 101 H 102 H Respiratory Rate 24 26 H 28 H Blood Pressure 130/60 116/61 Pulse Oximetry 94 L 95 93 L 12/26/17 06:00 12/26/17 07:00 12/26/17 08:00 Temperature 98.4 F Pulse Rate 100 H 100 H 98 H Respiratory Rate 26 H 24 28 H Blood Pressure 164/77 H 134/67 138/65 Pulse Oximetry 95 95 95 12/26/17 09:00 12/26/17 09:24 12/26/17 10:00 Temperature Pulse Rate 98 H 96 H 99 H Respiratory Rate 26 H 18 20 Blood Pressure 151/74 H 132/62 Pulse Oximetry 95 95 97 12/26/17 15:36 Temperature Pulse Rate 96 H Respiratory Rate 16 Blood Pressure Pulse Oximetry Intake & Output 12/25/17 12/26/17 12/26/17 18:59 06:59 18:59 Intake Total 1873 / 1873 1993 / 1993 1100 / 1100 Output Total 2250 / 2250 1575 / 1575 Balance -377 / -377 419 / 419 1100 / 1100 Weight 73 kg Intake: IV 1200 / 1200 1200 / 1200 1100 / 1100 D5W/1/2NS + KCL 20 mEq Inj 1, 1000 / 1000 1000 / 1000 1000 / 1000 000 ML @ 100 mls/hr IV.CONT . Q10H [facility]ATH[facility] Rx#:[id number] Zosyn 4.5 GM Premix 4.5 gm In 200 / 200 200 / 200 100 / 100 100 ml @ 200 mls/hr IV.SIG Q6H [facility]ATHER Rx#:[id number] Oral 0 / 0 Tube Feeding 553 / 553 794 / 794 Tube Irrigant 120 / 120 Output: Stool 250 / 250 Urine Amount (Catheter) 1999 1575 / 1575 Indwelling Urethral Catheter 1999 1575 / 1575 Other: Date of Last Bowel Movement 12/25/17 12/25/17 12/25/17 # Bowel Movements 2 - Constitutional no acute distress - Routine HEENT Exam Head: Present: normocephalic ENT: Present: mucous membranes moist - Routine Neck Exam Present: supple - Routine Cardiovascular Exam Present: RRR, S1, S2 - Routine Abdominal Exam Present: soft, normoactive bowel sounds - Routine Skin Exam Present: intact - Routine Neurological Exam Present: alert, oriented X3 - Urinary Catheter Management Indwelling Urethral Catheter Cath placed during this visit: yes, but has since been removed by the nurse Reason for continuing: Acute urinary retention Insertion date: 12/24/17 Insertion time: 15:45 Removal date: 12/22/17 Removal time: 17:30 Straight Cath placed during this visit: yes Reason for continuing: Acute urinary retention Insertion date: 12/24/17 Insertion time: 13:00 Results - Labs CBC & Chem 7: 12/25/17 20:25 12/25/17 06:43 Laboratory Results - last 24 hr 12/25/17 12/25/17 12/25/17 17:19 20:25 23:31 Hgb 8.8 L Hct 25.3 L POC Glucose 110 153 H Procalcitonin 12/26/17 12/26/17 12/26/17 05:39 10:38 13:09 Hgb Hct POC Glucose 145 H 148 H Procalcitonin 0.13 H Assessment and Plan - Plan IMPRESSION RESPIRATORY FAILURE PNA HILAR ADENOPATHY HEAD AND NECK CA PLAN O2 ANTIBX PULM TOILET BRONCHOSCPY WHEN ON FLOOR
[2017-12-26] MEDS: Mirtazapine 15 MG Tablet PO SCH (22:18)
[2017-12-27] MEDS: Piperacil/Tazo 4.5 GM Premix 4.5 GM/100 ML BAG IV.SIG SCH ×4 (03:54→20:05)
[2017-12-27] MEDS: Oral Hygiene Kit OROPHARYNG SCH ×4 (03:56→15:46)
[2017-12-27] MEDS: KCL 20 mEq/D5W/NaCl 0.45% Inj 1,000 ML IV.CONT SCH ×2 (04:10→20:27)
--- NOTE | 2017-12-27 05:50 | XR ---
EXAM DATE: 12/27/2017 5:02 AM EDT AGE/SEX: 67 years / Male INDICATIONS: Short of breath. CLINICAL DATA: This is the patient's subsequent encounter. Patient reports that signs and symptoms h ave been present for 2 weeks and indicates a pain score of 0/10. MEDICAL/SURGICAL HISTORY: Cardiovascular disease. Cerebrovascular disease. Hypertension. Thr oat and tongue cancer. Coronary artery stent. Appendectomy. Gastric tube. COMPARISON: [facility] [place], CHEST 1V SINGLE AP, 12/25/2017. . FINDINGS: Patchy coarse interstitial parenchymal opacity is grossly unchanged. No significant alveolar consolid ation or pleural effusion. Cardiac contours are unchanged. Surgical clips and left carotid stent note d in the left neck. CONCLUSION: No significant change. Electronically signed by: Fahad Diane MD 12/27/2017 5:48 AM EDT
[2017-12-27 05:51] LABS: Baso # (Auto) 0.1 th/mm3 (0.0-0.2); Baso % (Auto) 0.8 % (0.0-2.0); Eos # (Auto) 0.4 th/mm3 (0.0-0.4); Hematocrit 28.4 % (39.0-51.0); Hemoglobin 9.1 gm/dL (13.0-17.0); Lymph # (Auto) 2.7 th/mm3 (1.0-4.8); Mean Corpuscular HGB Conc 32.2 % (32.0-36.0); Mean Corpuscular Hemoglobin 31.4 pg (27.0-34.0); Mean Corpuscular Volume 97.5 fL (80.0-100.0); Mean Platelet Volume 8.8 fL (7.0-11.0); Mono # (Auto) 0.7 th/mm3 (0.0-0.9); Mono % (Auto) 4.5 % (0.0-8.0); Neut # (Auto) 10.9 th/mm3 (1.8-7.7); Neut % (Auto) 73.7 % (16.0-70.0); Platelet Count 758 th/mm3 (150-450); Red Blood Count 2.91 mil/mm3 (4.50-5.90); Red Cell Distribution Width 17.9 % (11.6-17.2); White Blood Count 14.8 th/mm3 (4.0-11.0)
[2017-12-27] MEDS: Insulin NovoLOG Aspart Correctional Sugar Inj SQ SCH ×4 (05:54→17:51)
[2017-12-27 08:33] LABS: Eosinophils 2 % (0-4); Lymphocytes 14 % (9-44); Metamyelocytes 1 % (0-1); Monocytes 4 % (0-8); Myelocytes 1 % (0-0); Promyelocyte 2 % (0-0)
[2017-12-27 08:34] LABS: Platelet Morphology Normal (Normal)
[2017-12-27] MEDS: clonazePAM 0.5 MG Tablet PO SCH ×2 (09:33→20:04)
[2017-12-27] MEDS: Chlorhexidine 0.12% Oral Kit 15 ML UDC OROPHARYNG SCH ×2 (09:33→19:47)
[2017-12-27] MEDS: Pantoprazole Inj 40 MG Vial IV.PUSH SCH ×2 (09:33→20:03)
[2017-12-27] MEDS: amLODIPine 10 MG Tablet PO SCH (09:33)
[2017-12-27] MEDS: Mupirocin 2% Nasal Oint Topical Syringe EACH NARE SCH ×2 (09:33→20:04)
[2017-12-27] MEDS: Senna/Docusate Sodium 8.6/50 MG Tablet PO SCH ×2 (09:33→20:04)
--- NOTE | 2017-12-27 10:27 | P.PNIM ---
Subjective Interval history: pt awakens. follows commands not able to get oob yesterday. was sleepy. Physical Exam Vital signs: Vital Signs 12/26/17 11:00 12/26/17 12:00 12/26/17 13:00 Temperature 98.6 F Pulse Rate 91 H 97 H 99 H Respiratory Rate 28 H 28 H 31 H Blood Pressure 122/59 L 127/64 130/67 Pulse Oximetry 95 94 L 94 L 12/26/17 14:00 12/26/17 15:00 12/26/17 15:36 Temperature Pulse Rate 98 H 97 H 96 H Respiratory Rate 30 H 30 H 16 Blood Pressure 134/65 140/67 Pulse Oximetry 94 L 94 L 12/26/17 15:44 12/26/17 16:00 12/26/17 17:00 Temperature 99.2 F Pulse Rate 99 H 101 H 101 H Respiratory Rate 24 25 H 25 H Blood Pressure 136/68 134/62 130/56 L Pulse Oximetry 96 96 96 12/26/17 18:00 12/26/17 18:07 12/26/17 19:00 Temperature Pulse Rate 103 H 99 H Respiratory Rate 28 H 18 24 Blood Pressure 124/69 136/72 Pulse Oximetry 96 94 L 12/26/17 20:00 12/26/17 21:47 12/26/17 22:00 Temperature 97.8 F Pulse Rate 96 H 100 H 104 H Respiratory Rate 24 18 Blood Pressure 159/76 H Pulse Oximetry 94 L 99 12/26/17 23:32 12/27/17 00:00 12/27/17 02:00 Temperature 98.0 F Pulse Rate 100 H 98 H Respiratory Rate 30 H Blood Pressure 132/65 Pulse Oximetry 92 L 93 L 12/27/17 04:00 12/27/17 04:16 12/27/17 06:00 Temperature 97.7 F Pulse Rate 97 H 97 H 101 H Respiratory Rate 23 22 Blood Pressure 113/59 L Pulse Oximetry 92 L 12/27/17 08:00 12/27/17 09:09 Temperature Pulse Rate 103 H Respiratory Rate 21 Blood Pressure Pulse Oximetry 96 Intake & Output 12/26/17 12/27/17 12/27/17 18:59 06:59 18:59 Intake Total 3076 / 3076 1200 / 1200 Output Total 2850 / 2850 1350 / 1350 Balance 226 / 226 -150 / -150 Weight 73 kg Intake: IV 2200 / 2200 1200 / 1200 D5W/1/2NS + KCL 20 mEq Inj 1, 2000 / 2000 1000 / 1000 000 ML @ 100 mls/hr IV.CONT . Q10H HEATHER Rx#:[id number] Zosyn 4.5 GM Premix 4.5 gm In 200 / 200 200 / 200 100 ml @ 200 mls/hr IV.SIG Q6H HEATHER Rx#:[id number] Tube Feeding 756 / 756 Tube Irrigant 120 / 120 Output: Urine Amount (Catheter) 2850 / 2850 1350 / 1350 Indwelling Urethral Catheter 2850 / 2850 1350 / 1350 Other: Date of Last Bowel Movement 12/25/17 12/25/17 lying in bed. no labored breathing lung course bs gary heart reg abd peg tube ext no pitting. mccray. yellow urine. - Urinary Catheter Management Indwelling Urethral Catheter Cath placed during this visit: yes, but has since been removed by the nurse Reason for continuing: Acute urinary retention Insertion date: 12/24/17 Insertion time: 15:45 Removal date: 12/22/17 Removal time: 17:30 Straight Cath placed during this visit: yes Reason for continuing: Acute urinary retention Insertion date: 12/24/17 Insertion time: 13:00 Results - Labs CBC & Chem 7: 12/27/17 04:02 12/25/17 06:43 Laboratory Results - last 24 hr 12/26/17 12/26/17 12/26/17 10:38 13:09 17:33 WBC RBC Hgb Hct MCV MCH MCHC RDW Plt Count MPV Prelim Diff (Auto) Neut % (Auto) Lymph % (Auto) [place] % (Auto) Eos % (Auto) Baso % (Auto) Neut # (Auto) Lymph # (Auto) [place] # (Auto) Eos # (Auto) Baso # (Auto) WBC Differential Seg Neuts % (Manual) Lymphocytes % (Manual) Monocytes % (Manual) Eosinophils % (Manual) Metamyelocytes % (Man) Myelocytes % (Man) Promyelocytes % (Man) Abs Neuts (Manual) Differential Comment Platelet Estimate Platelet Morphology POC Glucose 148 H 130 H Procalcitonin 0.13 H 12/27/17 12/27/17 12/27/17 00:27 04:02 05:54 WBC 14.8 H RBC 2.91 L Hgb 9.1 L Hct 28.4 L MCV 97.5 D MCH 31.4 MCHC 32.2 RDW 17.9 H Plt Count 758 H D MPV 8.8 Prelim Diff (Auto) Slide review pending Neut % (Auto) 73.7 H Lymph % (Auto) 18.0 [place] % (Auto) 4.5 Eos % (Auto) 3.0 Baso % (Auto) 0.8 Neut # (Auto) 10.9 H Lymph # (Auto) 2.7 [place] # (Auto) 0.7 Eos # (Auto) 0.4 Baso # (Auto) 0.1 WBC Differential Manual diff final Seg Neuts % (Manual) 76 H Lymphocytes % (Manual) 14 Monocytes % (Manual) 4 Eosinophils % (Manual) 2 Metamyelocytes % (Man) 1 Myelocytes % (Man) 1 H Promyelocytes % (Man) 2 H Abs Neuts (Manual) 11.8 H Differential Comment . Platelet Estimate High H Platelet Morphology Normal POC Glucose 150 H 179 H Procalcitonin - Imaging Impressions Chest X-Ray 12/27/17 00:00 CONCLUSION: No significant change. Assessment and Plan - Assessment (1) Aspiration pneumonia Code(s): J69.0 - Pneumonitis due to inhalation of food and vomit Status: Acute Plan: 67-year-old male with past medical history of head and neck cancer presents from home after being found unresponsive. Patient was found by EMS to have spontaneous respirations palpable pulse and blood pressure but markedly decreased level of consciousness, hypotensive with large amount of tube feeding contents in the oral cavity. Patient has history of head neck cancer and takes no oral medications takes all medications and feedings through PEG tube. Patient was last seen normal approximately at breakfast time on Tuesday and then family members found him unresponsive. Unknown downtime. Upon EMS arrival patient was assessed and suctioned and initial O2 saturations were 60% patient was placed on supplemental oxygen with improved ventilations and then subsequently intubated with a 7.5 endotracheal tube. Per EMS copious amounts of suctioning was performed and large amounts of tube feeding were suctioned. Aspiration pneumonia Acute encephalopathy acute cva right frontal/occipital. 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 Chronic benzodiazepine use, Chronic opioid use Depression disorder urine retention melanotic stool. Precedex titrated off. on klononpin scheduled Fentanyl patch 25 mcg/h home dose. Seroquel 50 mg every 12 hourly as needed for agitation. stop fentanyl due to sedation. ct head no acute cva initially....repeat CT brain shows concern for evolving cva in occipital/frontal areas. cta showed 80percent obstruction and areas of ulceration proximal to right carotid stent Unable to do MRI brain secondary to retained metal and I according to . Has bilateral internal carotid artery stents. CTA revealed right carotid artery stenosis proximal to internal carotid artery stent. Vascular surgery consult requested by neurology. On aspirin, Plavix per neurology. Vascular planning to reevaluate intervention when stable Extubated on 12/14. moved back to ICU for ongoing aspiration. mccray for urine retention. attempt removal when more active PT consultation prn oral suction. dvt prophylaxis. cont nebs. cont zosyn for pneumonia..discussed with ID. probably stop in next 24hrs. cont tube feeding support. cont reglan resume lovenox egd when more stable planned. continue in ICU setting. He is high risk for decompensation from resp standpt. on 5-6lnc now. bipap at night. attempt oob today. discussed with RN Elevated troponin Essential hypertension Coronary artery disease Bilateral carotid artery stents Troponin peaked at 0.39. EKG revealed no acute ST changes or bundle-branch blocks Continue amlodipine 10 mg daily/home medication for hypertension Limited 2D echocardiogram. : (2) Respiratory failure Code(s): J96.90 - Respiratory failure, unspecified, unspecified whether with hypoxia or hypercapnia Status: Acute (3) Altered mental status Code(s): R41.82 - Altered mental status, unspecified Status: Acute
--- NOTE | 2017-12-27 11:15 | P.PNGI ---
Subjective Interval history: Currently patient is sitting up in the chair family member present, continues with moderate generalized weakness and O2 per 6 L nasal cannula Denies any obvious bleeding no nausea no vomiting <Suha Sotelo - Last Filed: 12/27/17 11:16> Physical Exam Vital signs: Vital Signs 12/26/17 12:00 12/26/17 13:00 12/26/17 14:00 Temperature 98.6 F Pulse Rate 97 H 99 H 98 H Respiratory Rate 28 H 31 H 30 H Blood Pressure 127/64 130/67 134/65 Pulse Oximetry 94 L 94 L 94 L 12/26/17 15:00 12/26/17 15:36 12/26/17 15:44 Temperature Pulse Rate 97 H 96 H 99 H Respiratory Rate 30 H 16 24 Blood Pressure 140/67 136/68 Pulse Oximetry 94 L 96 12/26/17 16:00 12/26/17 17:00 12/26/17 18:00 Temperature 99.2 F Pulse Rate 101 H 101 H 103 H Respiratory Rate 25 H 25 H 28 H Blood Pressure 134/62 130/56 L 124/69 Pulse Oximetry 96 96 96 12/26/17 18:07 12/26/17 19:00 12/26/17 20:00 Temperature 97.8 F Pulse Rate 99 H 96 H Respiratory Rate 18 24 24 Blood Pressure 136/72 159/76 H Pulse Oximetry 94 L 94 L 12/26/17 21:47 12/26/17 22:00 12/26/17 23:32 Temperature Pulse Rate 100 H 104 H Respiratory Rate 18 Blood Pressure Pulse Oximetry 99 92 L 12/27/17 00:00 12/27/17 02:00 12/27/17 04:00 Temperature 98.0 F 97.7 F Pulse Rate 100 H 98 H 97 H Respiratory Rate 30 H 23 Blood Pressure 132/65 113/59 L Pulse Oximetry 93 L 92 L 12/27/17 04:16 12/27/17 06:00 12/27/17 08:00 Temperature Pulse Rate 97 H 101 H Respiratory Rate 22 Blood Pressure Pulse Oximetry 96 12/27/17 09:09 Temperature Pulse Rate 103 H Respiratory Rate 21 Blood Pressure Pulse Oximetry Intake & Output 12/26/17 12/27/17 12/27/17 18:59 06:59 18:59 Intake Total 3076 / 3076 1200 / 1200 Output Total 2850 / 2850 1350 / 1350 Balance 226 / 226 -150 / -150 Weight 73 kg Intake: IV 2200 / 2200 1200 / 1200 D5W/1/2NS + KCL 20 mEq Inj 1, 1999 / 1999 1000 / 1000 000 ML @ 100 mls/hr IV.CONT . Q10H HEATHER Rx#:[id number] Zosyn 4.5 GM Premix 4.5 gm In 200 / 200 200 / 200 100 ml @ 200 mls/hr IV.SIG Q6H HEATHER Rx#:[id number] Tube Feeding 756 / 756 Tube Irrigant 120 / 120 Output: Urine Amount (Catheter) 2850 / 2850 1350 / 1350 Indwelling Urethral Catheter 2850 / 2850 1350 / 1350 Other: Date of Last Bowel Movement 12/25/17 12/25/17 - Constitutional mild distress, cachectic, chronically ill appearing - Routine HEENT Exam Head: Present: normocephalic, atraumatic ENT: Present: mucous membranes moist - Routine Neck Exam Present: supple - Routine Respiratory Exam Present: accessory muscle use (Mild exertional dyspnea even at rest) - Routine Cardiovascular Exam Present: S1, S2, tachycardia (Heart rate between 100 and 110 regular rhythm) - Routine Abdominal Exam Present: soft (Round, no obvious abdominal pain to light palpation), normoactive bowel sounds - Routine Skin Exam Present: pallor - Urinary Catheter Management Indwelling Urethral Catheter Cath placed during this visit: yes, but has since been removed by the nurse Reason for continuing: Acute urinary retention Insertion date: 12/24/17 Insertion time: 15:45 Removal date: 12/22/17 Removal time: 17:30 Straight Cath placed during this visit: yes Reason for continuing: Acute urinary retention Insertion date: 12/24/17 Insertion time: 13:00 <Suha Sotelo - Last Filed: 12/27/17 11:16> Vital signs: Vital Signs 12/26/17 20:00 12/26/17 21:00 12/26/17 21:47 Temperature 97.8 F Pulse Rate 96 H 98 H 100 H Respiratory Rate 24 19 18 Blood Pressure 159/76 H 149/69 H Pulse Oximetry 94 L 97 99 12/26/17 22:00 12/26/17 23:00 12/26/17 23:32 Temperature Pulse Rate 104 H 105 H Respiratory Rate 18 26 H Blood Pressure 139/66 110/56 L Pulse Oximetry 95 87 L 92 L 12/27/17 00:00 12/27/17 01:00 12/27/17 02:00 Temperature 98.0 F Pulse Rate 100 H 103 H 98 H Respiratory Rate 30 H 25 H 26 H Blood Pressure 132/65 141/70 H 140/71 Pulse Oximetry 93 L 96 98 12/27/17 03:00 12/27/17 04:00 12/27/17 04:16 Temperature 97.7 F Pulse Rate 97 H 97 H 97 H Respiratory Rate 26 H 23 22 Blood Pressure 138/69 113/59 L Pulse Oximetry 98 92 L 12/27/17 05:00 12/27/17 06:00 12/27/17 07:00 Temperature Pulse Rate 104 H 101 H 93 H Respiratory Rate 26 H 28 H 28 H Blood Pressure 113/64 136/72 125/63 Pulse Oximetry 92 L 94 L 94 L 12/27/17 08:00 12/27/17 09:00 12/27/17 09:09 Temperature 98.6 F Pulse Rate 95 H 102 H 103 H Respiratory Rate 27 H 15 21 Blood Pressure 117/66 115/69 Pulse Oximetry 95 97 12/27/17 10:00 12/27/17 11:00 12/27/17 12:00 Temperature 98.4 F Pulse Rate 106 H 92 H 95 H Respiratory Rate 21 24 26 H Blood Pressure 109/65 113/58 L 105/63 Pulse Oximetry 99 95 96 12/27/17 13:00 12/27/17 14:00 12/27/17 15:00 Temperature Pulse Rate 94 H 100 H 95 H Respiratory Rate 25 H 19 14 Blood Pressure 124/64 131/70 134/75 Pulse Oximetry 100 100 100 12/27/17 15:37 12/27/17 16:00 12/27/17 17:00 Temperature 98.1 F Pulse Rate 96 H 101 H 95 H Respiratory Rate 22 25 H 26 H Blood Pressure 135/71 116/79 Pulse Oximetry 99 100 12/27/17 18:00 12/27/17 19:00 Temperature Pulse Rate 100 H 99 H Respiratory Rate 23 23 Blood Pressure 156/74 H 125/57 L Pulse Oximetry 96 96 Intake & Output 12/27/17 12/27/17 12/28/17 06:59 18:59 06:59 Intake Total 1200 / 1200 1966 / 1966 Output Total 1350 / 1350 1300 / 1300 Balance -150 / -150 667 / 667 Weight 73 kg Intake: IV 1200 / 1200 1200 / 1200 D5W/1/2NS + KCL 20 mEq Inj 1, 1000 / 1000 1000 / 1000 000 ML @ 100 mls/hr IV.CONT . Q10H HEATHER Rx#:[id number] Zosyn 4.5 GM Premix 4.5 gm In 200 / 200 200 / 200 100 ml @ 200 mls/hr IV.SIG Q6H HEATHER Rx#:[id number] Tube Feeding 707 / 707 Tube Irrigant 60 / 60 Output: Urine Amount (Catheter) 1350 / 1350 1300 / 1300 Indwelling Urethral Catheter 1350 / 1350 1300 / 1300 Other: Date of Last Bowel Movement 12/25/17 12/25/17 - Urinary Catheter Management Indwelling Urethral Catheter Cath placed during this visit: no Straight Cath placed during this visit: no <Joe Sanders E - Last Filed: 12/27/17 19:51> Results - Labs CBC & Chem 7: 12/27/17 04:02 12/25/17 06:43 Laboratory Results - last 24 hr 12/26/17 12/26/17 12/26/17 10:38 13:09 17:33 WBC RBC Hgb Hct MCV MCH MCHC RDW Plt Count MPV Prelim Diff (Auto) Neut % (Auto) Lymph % (Auto) [place] % (Auto) Eos % (Auto) Baso % (Auto) Neut # (Auto) Lymph # (Auto) [place] # (Auto) Eos # (Auto) Baso # (Auto) WBC Differential Seg Neuts % (Manual) Lymphocytes % (Manual) Monocytes % (Manual) Eosinophils % (Manual) Metamyelocytes % (Man) Myelocytes % (Man) Promyelocytes % (Man) Abs Neuts (Manual) Differential Comment Platelet Estimate Platelet Morphology POC Glucose 148 H 130 H Procalcitonin 0.13 H 12/27/17 12/27/17 12/27/17 00:27 04:02 05:54 WBC 14.8 H RBC 2.91 L Hgb 9.1 L Hct 28.4 L MCV 97.5 D MCH 31.4 MCHC 32.2 RDW 17.9 H Plt Count 758 H D MPV 8.8 Prelim Diff (Auto) Slide review pending Neut % (Auto) 73.7 H Lymph % (Auto) 18.0 [place] % (Auto) 4.5 Eos % (Auto) 3.0 Baso % (Auto) 0.8 Neut # (Auto) 10.9 H Lymph # (Auto) 2.7 [place] # (Auto) 0.7 Eos # (Auto) 0.4 Baso # (Auto) 0.1 WBC Differential Manual diff final Seg Neuts % (Manual) 76 H Lymphocytes % (Manual) 14 Monocytes % (Manual) 4 Eosinophils % (Manual) 2 Metamyelocytes % (Man) 1 Myelocytes % (Man) 1 H Promyelocytes % (Man) 2 H Abs Neuts (Manual) 11.8 H Differential Comment . Platelet Estimate High H Platelet Morphology Normal POC Glucose 150 H 179 H Procalcitonin - Imaging Impressions Chest X-Ray 12/27/17 00:00 CONCLUSION: No significant change. <Suha Sotelo - Last Filed: 12/27/17 11:16> - Labs CBC & Chem 7: 12/27/17 04:02 12/25/17 06:43 Laboratory Results - last 24 hr 12/27/17 12/27/17 12/27/17 00:27 04:02 05:54 WBC 14.8 H RBC 2.91 L Hgb 9.1 L Hct 28.4 L MCV 97.5 D MCH 31.4 MCHC 32.2 RDW 17.9 H Plt Count 758 H D MPV 8.8 Prelim Diff (Auto) Slide review pending Neut % (Auto) 73.7 H Lymph % (Auto) 18.0 [place] % (Auto) 4.5 Eos % (Auto) 3.0 Baso % (Auto) 0.8 Neut # (Auto) 10.9 H Lymph # (Auto) 2.7 [place] # (Auto) 0.7 Eos # (Auto) 0.4 Baso # (Auto) 0.1 WBC Differential Manual diff final Seg Neuts % (Manual) 76 H Lymphocytes % (Manual) 14 Monocytes % (Manual) 4 Eosinophils % (Manual) 2 Metamyelocytes % (Man) 1 Myelocytes % (Man) 1 H Promyelocytes % (Man) 2 H Abs Neuts (Manual) 11.8 H Differential Comment . Platelet Estimate High H Platelet Morphology Normal POC Glucose 150 H 179 H 12/27/17 12/27/17 12:53 17:46 WBC RBC Hgb Hct MCV MCH MCHC RDW Plt Count MPV Prelim Diff (Auto) Neut % (Auto) Lymph % (Auto) [place] % (Auto) Eos % (Auto) Baso % (Auto) Neut # (Auto) Lymph # (Auto) [place] # (Auto) Eos # (Auto) Baso # (Auto) WBC Differential Seg Neuts % (Manual) Lymphocytes % (Manual) Monocytes % (Manual) Eosinophils % (Manual) Metamyelocytes % (Man) Myelocytes % (Man) Promyelocytes % (Man) Abs Neuts (Manual) Differential Comment Platelet Estimate Platelet Morphology POC Glucose 119 H 122 H - Imaging Impressions Chest X-Ray 12/27/17 00:00 CONCLUSION: No significant change. <Joe Sanders E - Last Filed: 12/27/17 19:51> Assessment and Plan - Plan Assessment: - Anemia with reports of one episode of melena H/H currently .05/07.4 Pt reportedly had been taking about 6 tablets of ASA daily prior to arrival because he states that and his Fentanyl patches are the only thing that helps with his pain. According to RN pt had one loose, black tarry BM earlier today, it was tested and came back Hemoccult positive. At present, pt is resting in bed, denies any nausea, vomiting, abdominal pain. 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 He currently receives everything through his PEG, according to RN he has been tolerating his tube feeding. Pt does thing that he has had previous EGD but believe it was in the 80s. Of note, he is on Plavix and ASA, states carotid stents, currently on hold. At time of my exam pt is on 6L o2 via NC 12/26/17 - Anemia with episodes of melena. No BM since yesterday, no signs of active bleed no nausea, no vomiting, tolerating TF okay, hgb stable yesterday 8.8, received total of 2 units, last one on 12/24 - Leukocytosis/ pneumonia/ recurrent aspiration- ID on the case, PEG tube - Chronic dysphagia requiring PEG tube nutrition - Acute COPD exacerbation- Pulmonology on the case - Healthcare associated Aspiration pneumonia- abx, ID 12/27/2017 patient continues in the intensive care setting with some mild shortness of breath even at rest. Oxygen continues at 6 L nasal cannula Anemia, current hemoglobin 9.1 Leukocytosis 14.8 WBC count Coagulopathy PT/INR 1.3, okay to continue Lovenox for now No obvious bleeding, no abdominal pain, continues with tube feedings with PEG tube related to chronic dysphasia Plan: Diet tube feedings, monitor for any high residuals Monitor labs, monitor for any obvious bleeding PPI Bowel regimen Reglan, Zosyn per attending Notify GI for active bleed , okay for Lovenox from a GI perspective Patient continues to be in the intensive care setting and requiring 6 L of oxygen per nasal cannula Recommend EGD when patient is stable, Patient was seen by myself and Dr. Sanders , note was written on his behalf <Suha Sotelo M - Last Filed: 12/27/17 11:16> - Attending Attestation Patient seen and examined Agree with above Patient not stable for endoscopy at this point Not much to add otherwise from a GI perspective except to continue with current supportive measures Monitor labs and transfuse as needed We will sign off at this point but please reconsult when patient is stable for endoscopy or he may even follow-up as an outpatient with GI following discharge <Joe Sanders - Last Filed: 12/27/17 19:51>
[2017-12-27] MEDS ORDERED: clonazePAM 0.5 MG Tablet PO PRN (12:47)
[2017-12-27] MEDS: Mirtazapine 15 MG Tablet PO SCH (20:05)
[2017-12-28] MEDS: Oral Hygiene Kit OROPHARYNG SCH ×3 (01:17→18:04)
[2017-12-28] MEDS: Piperacil/Tazo 4.5 GM Premix 4.5 GM/100 ML BAG IV.SIG SCH ×4 (03:21→20:39)
[2017-12-28] MEDS: Chlorhexidine 0.12% Oral Kit 15 ML UDC OROPHARYNG SCH ×2 (09:11→20:38)
[2017-12-28] MEDS: Mupirocin 2% Nasal Oint Topical Syringe EACH NARE SCH ×2 (09:11→20:38)
[2017-12-28] MEDS: Pantoprazole Inj 40 MG Vial IV.PUSH SCH ×2 (09:12→20:38)
[2017-12-28] MEDS: Senna/Docusate Sodium 8.6/50 MG Tablet PO SCH ×2 (09:12→20:38)
[2017-12-28] MEDS: amLODIPine 10 MG Tablet PO SCH (10:01)
[2017-12-28] MEDS: KCL 20 mEq/D5W/NaCl 0.45% Inj 1,000 ML IV.CONT SCH ×2 (10:14)
[2017-12-28] MEDS: Insulin NovoLOG Aspart Correctional Sugar Inj SQ SCH ×4 (10:15→18:10)
--- NOTE | 2017-12-28 12:04 | P.PNIM ---
Subjective Interval history: more alert. says he gets intermittently confused. Physical Exam Vital signs: Vital Signs 12/27/17 13:00 12/27/17 14:00 12/27/17 15:00 Temperature Pulse Rate 94 H 100 H 95 H Respiratory Rate 25 H 19 14 Blood Pressure 124/64 131/70 134/75 Pulse Oximetry 100 100 100 12/27/17 15:37 12/27/17 16:00 12/27/17 17:00 Temperature 98.1 F Pulse Rate 96 H 101 H 95 H Respiratory Rate 22 25 H 26 H Blood Pressure 135/71 116/79 Pulse Oximetry 99 100 12/27/17 18:00 12/27/17 19:00 12/27/17 20:00 Temperature 97.9 F Pulse Rate 100 H 99 H 101 H Respiratory Rate 23 23 26 H Blood Pressure 156/74 H 125/57 L 133/69 Pulse Oximetry 96 96 99 12/27/17 20:34 12/27/17 22:00 12/28/17 00:00 Temperature 98.9 F Pulse Rate 100 H 114 H 95 H Respiratory Rate 20 27 H Blood Pressure 126/60 Pulse Oximetry 96 96 12/28/17 02:00 12/28/17 03:38 12/28/17 04:00 Temperature 98.8 F Pulse Rate 99 H 96 H 99 H Respiratory Rate 20 24 Blood Pressure 132/65 Pulse Oximetry 96 12/28/17 06:00 12/28/17 08:47 Temperature Pulse Rate 100 H 97 H Respiratory Rate 17 Blood Pressure Pulse Oximetry Intake & Output 12/27/17 12/28/17 12/28/17 18:59 06:59 18:59 Intake Total 1966 / 1966 946 / 946 Output Total 1300 / 1300 1700 / 1700 Balance 667 / 667 -754 / -754 Weight 75 kg Intake: IV 1200 / 1200 200 / 200 D5W/1/2NS + KCL 20 mEq Inj 1, 1000 / 1000 000 ML @ 100 mls/hr IV.CONT . Q10H HEATHER Rx#:[id number] Zosyn 4.5 GM Premix 4.5 gm In 200 / 200 200 / 200 100 ml @ 200 mls/hr IV.SIG Q6H HEATHER Rx#:[id number] Tube Feeding 707 / 707 646 / 646 Tube Irrigant 60 / 60 100 / 100 Output: Urine Amount (Catheter) 1300 / 1300 1700 / 1700 Indwelling Urethral Catheter 1300 / 1300 1700 / 1700 Other: Date of Last Bowel Movement 12/25/17 12/25/17 # Bowel Movements 0 on facemask. heart reg lung course bs abd s/nt. peg ext no edema mccray - Urinary Catheter Management Indwelling Urethral Catheter Cath placed during this visit: yes, but has since been removed by the nurse Reason for continuing: Acute urinary retention Insertion date: 12/24/17 Insertion time: 15:45 Removal date: 12/22/17 Removal time: 17:30 Straight Cath placed during this visit: yes Reason for continuing: Acute urinary retention Insertion date: 12/24/17 Insertion time: 13:00 Results - Labs CBC & Chem 7: 12/27/17 04:02 12/25/17 06:43 Laboratory Results - last 24 hr 12/27/17 12/27/17 12/27/17 12:53 17:46 23:45 POC Glucose 119 H 122 H 142 H 12/28/17 05:13 POC Glucose 143 H Assessment and Plan - Assessment (1) Aspiration pneumonia Code(s): J69.0 - Pneumonitis due to inhalation of food and vomit Status: Acute Plan: 67-year-old male with past medical history of head and neck cancer presents from home after being found unresponsive. Patient was found by EMS to have spontaneous respirations palpable pulse and blood pressure but markedly decreased level of consciousness, hypotensive with large amount of tube feeding contents in the oral cavity. Patient has history of head neck cancer and takes no oral medications takes all medications and feedings through PEG tube. Patient was last seen normal approximately at breakfast time on Tuesday and then family members found him unresponsive. Unknown downtime. Upon EMS arrival patient was assessed and suctioned and initial O2 saturations were 60% patient was placed on supplemental oxygen with improved ventilations and then subsequently intubated with a 7.5 endotracheal tube. Per EMS copious amounts of suctioning was performed and large amounts of tube feeding were suctioned. Aspiration pneumonia Acute encephalopathy acute cva right frontal/occipital. 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 Chronic benzodiazepine use, Chronic opioid use Depression disorder urine retention melanotic stool. Precedex titrated off. on klononpin scheduled Fentanyl patch 25 mcg/h home dose. Seroquel 50 mg every 12 hourly as needed for agitation. stop fentanyl due to sedation. ct head no acute cva initially....repeat CT brain shows concern for evolving cva in occipital/frontal areas. cta showed 80percent obstruction and areas of ulceration proximal to right carotid stent Unable to do MRI brain secondary to retained metal and I according to . Has bilateral internal carotid artery stents. CTA revealed right carotid artery stenosis proximal to internal carotid artery stent. Vascular surgery consult requested by neurology. On aspirin, Plavix per neurology. Vascular planning to reevaluate intervention when stable Extubated on 12/14. moved back to ICU for ongoing aspiration. mccray for urine retention. attempt removal when more active PT consultation prn oral suction. dvt prophylaxis. cont nebs. cont zosyn for pneumonia..discussed with ID. probably stop in next 24hrs. cont tube feeding support. cont reglan resume lovenox egd when more stable planned. continue in ICU setting. He is high risk for decompensation from resp standpt. on 5-6lnc now. bipap on/off and at night. attempt oob today. discussed with RN Elevated troponin Essential hypertension Coronary artery disease Bilateral carotid artery stents Troponin peaked at 0.39. EKG revealed no acute ST changes or bundle-branch blocks Continue amlodipine 10 mg daily/home medication for hypertension Limited 2D echocardiogram. : (2) Respiratory failure Code(s): J96.90 - Respiratory failure, unspecified, unspecified whether with hypoxia or hypercapnia Status: Acute (3) Altered mental status Code(s): R41.82 - Altered mental status, unspecified Status: Acute
--- NOTE | 2017-12-28 16:51 | P.PN ---
Subjective Interval history: alert no sob Physical Exam Vital signs: Vital Signs 12/27/17 17:00 12/27/17 18:00 12/27/17 19:00 Temperature Pulse Rate 95 H 100 H 99 H Respiratory Rate 26 H 23 23 Blood Pressure 116/79 156/74 H 125/57 L Pulse Oximetry 100 96 96 12/27/17 20:00 12/27/17 20:34 12/27/17 21:00 Temperature 97.9 F Pulse Rate 101 H 100 H 109 H Respiratory Rate 28 H 20 23 Blood Pressure 133/69 Pulse Oximetry 99 96 99 12/27/17 21:01 12/27/17 22:00 12/27/17 23:00 Temperature Pulse Rate 108 H 114 H 99 H Respiratory Rate 24 31 H 24 Blood Pressure 132/68 129/91 H 118/76 Pulse Oximetry 99 90 L 97 12/28/17 00:00 12/28/17 01:00 12/28/17 02:00 Temperature 98.9 F Pulse Rate 95 H 98 H 99 H Respiratory Rate 27 H 25 H 25 H Blood Pressure 126/60 122/57 L 118/56 L Pulse Oximetry 88 L 88 L 87 L 12/28/17 03:00 12/28/17 03:38 12/28/17 04:00 Temperature 98.8 F Pulse Rate 96 H 96 H 99 H Respiratory Rate 25 H 20 24 Blood Pressure 144/69 H 132/65 Pulse Oximetry 95 96 12/28/17 05:00 12/28/17 06:00 12/28/17 07:00 Temperature Pulse Rate 98 H 100 H 97 H Respiratory Rate 27 H 21 25 H Blood Pressure 148/70 H 126/59 L 145/69 H Pulse Oximetry 97 88 L 96 12/28/17 08:00 12/28/17 08:47 12/28/17 09:00 Temperature Pulse Rate 97 H 97 H 100 H Respiratory Rate 27 H 17 28 H Blood Pressure 144/72 H 140/70 Pulse Oximetry 97 95 12/28/17 10:00 12/28/17 11:00 12/28/17 11:06 Temperature Pulse Rate 100 H 106 H 107 H Respiratory Rate 23 27 H 25 H Blood Pressure 142/67 H 130/72 Pulse Oximetry 97 98 97 12/28/17 12:00 12/28/17 12:53 12/28/17 13:00 Temperature Pulse Rate 96 H Respiratory Rate 16 24 Blood Pressure Pulse Oximetry 98 95 12/28/17 14:00 12/28/17 15:00 12/28/17 16:00 Temperature Pulse Rate 92 H 98 H 100 H Respiratory Rate 24 28 H 15 Blood Pressure Pulse Oximetry 95 98 97 12/28/17 16:25 Temperature Pulse Rate 97 H Respiratory Rate 17 Blood Pressure Pulse Oximetry Intake & Output 12/27/17 12/28/17 12/28/17 18:59 06:59 18:59 Intake Total 1966 / 1966 946 / 946 Output Total 1300 / 1300 1700 / 1700 Balance 667 / 667 -754 / -754 Weight 75 kg Intake: IV 1200 / 1200 200 / 200 D5W/1/2NS + KCL 20 mEq Inj 1, 1000 / 1000 000 ML @ 100 mls/hr IV.CONT . Q10H HEATHER Rx#:[id number] Zosyn 4.5 GM Premix 4.5 gm In 200 / 200 200 / 200 100 ml @ 200 mls/hr IV.SIG Q6H HEATHER Rx#:[id number] Tube Feeding 707 / 707 646 / 646 Tube Irrigant 60 / 60 100 / 100 Output: Urine Amount (Catheter) 1300 / 1300 1700 / 1700 Indwelling Urethral Catheter 1300 / 1300 1700 / 1700 Other: Date of Last Bowel Movement 12/25/17 12/25/17 12/25/17 # Bowel Movements 0 - Constitutional no acute distress - Routine HEENT Exam Head: Present: normocephalic Eye: Present: EOMI ENT: Present: mucous membranes moist - Routine Neck Exam Present: supple, full ROM - Routine Cardiovascular Exam Present: RRR, S1, S2 - Routine Abdominal Exam Present: soft, normoactive bowel sounds - Urinary Catheter Management Indwelling Urethral Catheter Cath placed during this visit: yes, but has since been removed by the nurse Reason for continuing: Acute urinary retention Insertion date: 12/24/17 Insertion time: 15:45 Removal date: 12/22/17 Removal time: 17:30 Straight Cath placed during this visit: yes Reason for continuing: Acute urinary retention Insertion date: 12/24/17 Insertion time: 13:00 Results - Labs CBC & Chem 7: 12/27/17 04:02 12/25/17 06:43 Laboratory Results - last 24 hr 12/27/17 12/27/17 12/28/17 17:46 23:45 05:13 POC Glucose 122 H 142 H 143 H Assessment and Plan - Plan IMPRESSION RESPIRATORY FAILURE PNA HILAR ADENOPATHY HEAD AND NECK CA PLAN O2 ANTIBX PULM TOILET BRONCHOSCPY WHEN ON FLOOR
[2017-12-28] MEDS: clonazePAM 0.5 MG Tablet PO SCH (20:38)
[2017-12-28] MEDS: Mirtazapine 15 MG Tablet PO SCH (20:39)
[2017-12-29] MEDS: Oral Hygiene Kit OROPHARYNG SCH ×5 (00:20→23:56)
[2017-12-29] MEDS: Insulin NovoLOG Aspart Correctional Sugar Inj SQ SCH ×5 (00:20→23:55)
[2017-12-29] MEDS: Enoxaparin Inj 40 MG/0.4 ML Syringe SQ SCH ×2 (00:23→23:57)
[2017-12-29] MEDS: Piperacil/Tazo 4.5 GM Premix 4.5 GM/100 ML BAG IV.SIG SCH ×2 (02:26→08:23)
[2017-12-29] MEDS: KCL 20 mEq/D5W/NaCl 0.45% Inj 1,000 ML IV.CONT SCH ×2 (03:30→14:00)
[2017-12-29] MEDS: Senna/Docusate Sodium 8.6/50 MG Tablet PO SCH ×2 (08:22→20:21)
[2017-12-29] MEDS: Aspirin 325 MG Tablet PO SCH (08:22)
[2017-12-29] MEDS: Pantoprazole Inj 40 MG Vial IV.PUSH SCH ×2 (08:23→20:20)
[2017-12-29] MEDS: Mupirocin 2% Nasal Oint Topical Syringe EACH NARE SCH ×2 (08:24→20:21)
--- NOTE | 2017-12-29 09:07 | P.PNIM ---
Subjective Interval history: pt was oob with PT yesterday. more alert. constipated Physical Exam Vital signs: Vital Signs 12/28/17 10:00 12/28/17 11:00 12/28/17 11:06 Temperature Pulse Rate 100 H 106 H 107 H Respiratory Rate 23 27 H 25 H Blood Pressure 142/67 H 130/72 Pulse Oximetry 97 98 97 12/28/17 12:00 12/28/17 12:53 12/28/17 13:00 Temperature Pulse Rate 96 H Respiratory Rate 16 24 Blood Pressure Pulse Oximetry 98 95 12/28/17 14:00 12/28/17 15:00 12/28/17 16:00 Temperature Pulse Rate 92 H 98 H 100 H Respiratory Rate 24 28 H 15 Blood Pressure Pulse Oximetry 95 98 97 12/28/17 16:25 12/28/17 17:00 12/28/17 17:35 Temperature Pulse Rate 97 H 104 H 102 H Respiratory Rate 17 23 24 Blood Pressure 106/55 L Pulse Oximetry 93 L 95 12/28/17 18:00 12/28/17 19:00 12/28/17 20:00 Temperature 98.5 F Pulse Rate 104 H 102 H 105 H Respiratory Rate 17 24 27 H Blood Pressure 106/55 L Pulse Oximetry 97 97 95 12/28/17 21:00 12/28/17 21:15 12/28/17 21:25 Temperature Pulse Rate 97 H 101 H Respiratory Rate 24 22 Blood Pressure Pulse Oximetry 94 L 97 12/28/17 22:00 12/28/17 22:33 12/28/17 23:00 Temperature Pulse Rate 104 H 101 H 98 H Respiratory Rate 31 H 27 H 22 Blood Pressure 121/60 132/67 Pulse Oximetry 92 L 93 L 94 L 12/29/17 00:00 12/29/17 00:02 12/29/17 01:00 Temperature 97.8 F Pulse Rate 105 H 100 H 97 H Respiratory Rate 26 H 27 H 25 H Blood Pressure 135/63 135/63 124/64 Pulse Oximetry 86 L 93 L 94 L 12/29/17 02:00 12/29/17 03:00 12/29/17 03:24 Temperature Pulse Rate 93 H 95 H 93 H Respiratory Rate 24 26 H 22 Blood Pressure 123/59 L 129/56 L Pulse Oximetry 96 93 L 12/29/17 04:00 12/29/17 05:00 12/29/17 06:00 Temperature 98.0 F Pulse Rate 101 H 93 H 100 H Respiratory Rate 24 24 20 Blood Pressure 133/64 135/57 L 124/68 Pulse Oximetry 92 L 96 95 12/29/17 07:00 12/29/17 08:00 12/29/17 09:00 Temperature Pulse Rate 99 H 99 H 96 H Respiratory Rate 16 25 H 25 H Blood Pressure 90/50 L 113/55 L 114/56 L Pulse Oximetry 93 L 97 95 Intake & Output 12/28/17 12/29/17 12/29/17 18:59 06:59 18:59 Intake Total 460 / 460 1966 / 1966 Output Total 1300 / 1300 1475 / 1475 Balance -840 / -840 492 / 492 Weight 74.5 kg Intake: IV 460 / 460 1200 / 1200 D5W/1/2NS + KCL 20 mEq Inj 1, 1000 / 1000 000 ML @ 100 mls/hr IV.CONT . Q10H HEATHER Rx#:[id number] Zosyn 4.5 GM Premix 4.5 gm In 200 / 200 200 / 200 100 ml @ 200 mls/hr IV.SIG Q6H HEATHER Rx#:[id number] Potassium Phosphate Inj 30 MMOL 260 / 260 In NS Inj 250 ML @ 42 mls/hr IV.SIG UNSCH PRN Rx#:[id number] Tube Feeding 667 / 667 Tube Irrigant 100 / 100 Output: Urine Amount (Catheter) 1300 / 1300 1475 / 1475 Indwelling Urethral Catheter 1300 / 1300 1475 / 1475 Other: Date of Last Bowel Movement 12/25/17 12/25/17 # Bowel Movements 0 heart reg lung course bs abd s/nt/peg ext no edema mccray - Urinary Catheter Management Indwelling Urethral Catheter Cath placed during this visit: yes, but has since been removed by the nurse Reason for continuing: Acute urinary retention Insertion date: 12/24/17 Insertion time: 15:45 Removal date: 12/22/17 Removal time: 17:30 Straight Cath placed during this visit: yes Reason for continuing: Acute urinary retention Insertion date: 12/24/17 Insertion time: 13:00 Results - Labs CBC & Chem 7: 12/27/17 04:02 12/25/17 06:43 Laboratory Results - last 24 hr 12/28/17 12/29/1712/29/18 18:10 00:19 05:28 POC Glucose 171 H 110 168 H Assessment and Plan - Assessment (1) Aspiration pneumonia Code(s): J69.0 - Pneumonitis due to inhalation of food and vomit Status: Acute Plan: 67-year-old male with past medical history of head and neck cancer presents from home after being found unresponsive. Patient was found by EMS to have spontaneous respirations palpable pulse and blood pressure but markedly decreased level of consciousness, hypotensive with large amount of tube feeding contents in the oral cavity. Patient has history of head neck cancer and takes no oral medications takes all medications and feedings through PEG tube. Patient was last seen normal approximately at breakfast time on Tuesday and then family members found him unresponsive. Unknown downtime. Upon EMS arrival patient was assessed and suctioned and initial O2 saturations were 60% patient was placed on supplemental oxygen with improved ventilations and then subsequently intubated with a 7.5 endotracheal tube. Per EMS copious amounts of suctioning was performed and large amounts of tube feeding were suctioned. Aspiration pneumonia Acute encephalopathy acute cva right frontal/occipital. 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 Chronic benzodiazepine use, Chronic opioid use Depression disorder urine retention melanotic stool. Precedex titrated off. on klononpin scheduled Fentanyl patch 25 mcg/h home dose. Seroquel 50 mg every 12 hourly as needed for agitation. stopped fentanyl due to sedation. ct head no acute cva initially....repeat CT brain shows concern for evolving cva in occipital/frontal areas. cta showed 80percent obstruction and areas of ulceration proximal to right carotid stent Unable to do MRI brain secondary to retained metal and I according to . Has bilateral internal carotid artery stents. CTA revealed right carotid artery stenosis proximal to internal carotid artery stent. Vascular surgery consult requested by neurology. On aspirin, Plavix per neurology. Vascular planning to reevaluate intervention when stable Extubated on 12/14. moved back to ICU for ongoing aspiration. mccray for urine retention. attempt removal when more active PT consultation prn oral suction. dvt prophylaxis. cont nebs. discussed abx with ID. stop zosyn for pneumonia now(12/29) cont tube feeding support. cont reglan resumed lovenox egd when more stable planned. transfer to intermed care/stepdown. at risk for resp decompensation. Elevated troponin Essential hypertension Coronary artery disease Bilateral carotid artery stents Troponin peaked at 0.39. EKG revealed no acute ST changes or bundle-branch blocks Continue amlodipine 10 mg daily/home medication for hypertension Limited 2D echocardiogram. : (2) Respiratory failure Code(s): J96.90 - Respiratory failure, unspecified, unspecified whether with hypoxia or hypercapnia Status: Acute (3) Altered mental status Code(s): R41.82 - Altered mental status, unspecified Status: Acute
[2017-12-29] MEDS: amLODIPine 10 MG Tablet PO SCH (12:53)
[2017-12-29] MEDS: Chlorhexidine 0.12% Oral Kit 15 ML UDC OROPHARYNG SCH ×2 (12:54→20:42)
[2017-12-29] MEDS: clonazePAM 0.5 MG Tablet PO SCH (20:19)
[2017-12-29] MEDS: Mirtazapine 15 MG Tablet PO SCH (20:20)
[2017-12-30] MEDS: Insulin NovoLOG Aspart Correctional Sugar Inj SQ SCH ×4 (05:45→23:58)
[2017-12-30] MEDS: Oral Hygiene Kit OROPHARYNG SCH ×4 (05:45→23:58)
[2017-12-30 07:59] LABS: Baso # (Auto) 0.1 th/mm3 (0.0-0.2); Baso % (Auto) 0.8 % (0.0-2.0); Eos # (Auto) 0.2 th/mm3 (0.0-0.4); Eos % (Auto) 2.6 % (0.0-4.0); Lymph % (Auto) 24.3 % (9.0-44.0); Mean Corpuscular HGB Conc 32.2 % (32.0-36.0); Mean Corpuscular Hemoglobin 31.2 pg (27.0-34.0); Mean Corpuscular Volume 96.7 fL (80.0-100.0); Mono # (Auto) 0.7 th/mm3 (0.0-0.9); Neut # (Auto) 5.3 th/mm3 (1.8-7.7); Neut % (Auto) 64.3 % (16.0-70.0); Platelet Count 757 th/mm3 (150-450); Red Cell Distribution Width 16.7 % (11.6-17.2); White Blood Count 8.2 th/mm3 (4.0-11.0)
[2017-12-30 08:26] LABS: Albumin 2.2 g/dL (3.4-5.0); Anion Gap 8 meq/L (5-15); Aspartate Aminotransferase 40 U/L (15-37); Blood Urea Nitrogen 12 mg/dL (7-18); Calcium 8.4 mg/dL (8.5-10.1); Carbon Dioxide 27.9 meq/L (21.0-32.0); Chloride 106 meq/L (98-107); Glomerular Filtration Rate Greater Than 89 mL/min (>89); Glucose,Random 111 mg/dL (74-106); Potassium 3.7 meq/L (3.5-5.1); Sodium 142 meq/L (136-145)
[2017-12-30 08:30] LABS: Alanine Aminotransferase 164 U/L (12-78); Alkaline Phosphatase 124 U/L (45-117); Total Protein 7.2 g/dL (6.4-8.2)
--- NOTE | 2017-12-30 08:40 | P.PNIM ---
Subjective Interval history: no distress comfortable transferred out of icu yesterday. Physical Exam Vital signs: Vital Signs 12/29/17 09:00 12/29/17 09:28 12/29/17 10:00 Temperature Pulse Rate 96 H 101 H 107 H Respiratory Rate 25 H 20 19 Blood Pressure 114/56 L 110/64 Pulse Oximetry 95 98 96 12/29/17 11:00 12/29/17 12:00 12/29/17 13:00 Temperature 98.2 F Pulse Rate 104 H 96 H 93 H Respiratory Rate 21 17 22 Blood Pressure 117/64 126/70 151/81 H Pulse Oximetry 98 98 95 12/29/17 15:00 12/29/17 16:00 12/29/17 16:15 Temperature Pulse Rate 101 H 100 H Respiratory Rate Blood Pressure Pulse Oximetry 97 12/29/17 16:16 12/29/17 17:00 12/29/17 17:05 Temperature Pulse Rate 93 H 102 H Respiratory Rate 18 18 Blood Pressure Pulse Oximetry 12/29/17 17:06 12/29/17 18:00 12/29/17 19:00 Temperature 97.9 F 97.0 F L Pulse Rate 93 H 100 H 98 H Respiratory Rate 18 16 Blood Pressure 155/79 H 152/72 H Pulse Oximetry 96 95 12/29/17 20:00 12/29/17 21:00 12/29/17 22:00 Temperature Pulse Rate 88 96 H 90 Respiratory Rate Blood Pressure Pulse Oximetry 12/29/17 22:05 12/29/17 23:00 12/30/17 00:00 Temperature 97.9 F Pulse Rate 101 H 99 H 110 H Respiratory Rate 20 16 16 Blood Pressure 127/64 Pulse Oximetry 96 93 L 12/30/17 01:00 12/30/17 02:00 12/30/17 03:00 Temperature 97.1 F L Pulse Rate 98 H 94 H 95 H Respiratory Rate 16 Blood Pressure 119/62 Pulse Oximetry 94 L 12/30/17 03:46 12/30/17 04:00 12/30/17 05:00 Temperature Pulse Rate 94 H 99 H 97 H Respiratory Rate 22 Blood Pressure Pulse Oximetry 12/30/17 06:00 12/30/17 07:00 Temperature Pulse Rate 89 88 Respiratory Rate Blood Pressure Pulse Oximetry Intake & Output 12/29/17 12/30/17 12/30/17 18:59 06:59 18:59 Intake Total 1209 / 1209 Output Total 300 / 300 250 / 250 Balance -300 / -300 959 / 959 Weight 73 kg Intake: Tube Feeding 1209 / 1209 Output: Urine 300 / 300 250 / 250 Other: Date of Last Bowel Movement 12/25/17 12/25/17 heart reg lung cta abd s/nt. peg ext no edema mccray. - Urinary Catheter Management Indwelling Urethral Catheter Cath placed during this visit: yes, but has since been removed by the nurse Reason for continuing: Acute urinary retention Insertion date: 12/24/17 Insertion time: 15:45 Removal date: 12/22/17 Removal time: 17:30 Straight Cath placed during this visit: yes Reason for continuing: Acute urinary retention Insertion date: 12/24/17 Insertion time: 13:00 Results - Labs CBC & Chem 7: 12/30/17 07:37 12/30/17 07:37 Laboratory Results - last 24 hr 12/29/17 12/29/17 12/29/17 12:31 18:10 23:54 WBC RBC Hgb Hct MCV MCH MCHC RDW Plt Count MPV Neut % (Auto) Lymph % (Auto) [place] % (Auto) Eos % (Auto) Baso % (Auto) Neut # (Auto) Lymph # (Auto) [place] # (Auto) Eos # (Auto) Baso # (Auto) WBC Differential Differential Comment Sodium Potassium Chloride Carbon Dioxide Anion Gap BUN Creatinine Estimated GFR POC Glucose 111 H 115 H 137 H Random Glucose Calcium Total Bilirubin Direct Bilirubin Indirect Bilirubin AST ALT Alkaline Phosphatase Total Protein Albumin 12/30/17 12/30/17 12/30/17 05:44 07:37 07:37 WBC 8.2 RBC 2.90 L Hgb 9.0 L Hct 28.0 L MCV 96.7 MCH 31.2 MCHC 32.2 RDW 16.7 Plt Count 757 H MPV 8.0 Neut % (Auto) 64.3 Lymph % (Auto) 24.3 [place] % (Auto) 8.0 Eos % (Auto) 2.6 Baso % (Auto) 0.8 Neut # (Auto) 5.3 Lymph # (Auto) 2.0 [place] # (Auto) 0.7 Eos # (Auto) 0.2 Baso # (Auto) 0.1 WBC Differential . Differential Comment Auto diff final Sodium 142 Potassium 3.7 Chloride 106 Carbon Dioxide 27.9 Anion Gap 8 BUN 12 Creatinine 0.63 Estimated GFR Greater than 89 POC Glucose 128 H Random Glucose 111 H Calcium 8.4 L Total Bilirubin 0.2 Direct Bilirubin 0.1 Indirect Bilirubin 0.1 AST 40 H ALT 164 H Alkaline Phosphatase 124 H Total Protein 7.2 D Albumin 2.2 L Assessment and Plan - Assessment (1) Aspiration pneumonia Code(s): J69.0 - Pneumonitis due to inhalation of food and vomit Status: Acute Plan: 67-year-old male with past medical history of head and neck cancer presents from home after being found unresponsive. Patient was found by EMS to have spontaneous respirations palpable pulse and blood pressure but markedly decreased level of consciousness, hypotensive with large amount of tube feeding contents in the oral cavity. Patient has history of head neck cancer and takes no oral medications takes all medications and feedings through PEG tube. Patient was last seen normal approximately at breakfast time on Tuesday and then family members found him unresponsive. Unknown downtime. Upon EMS arrival patient was assessed and suctioned and initial O2 saturations were 60% patient was placed on supplemental oxygen with improved ventilations and then subsequently intubated with a 7.5 endotracheal tube. Per EMS copious amounts of suctioning was performed and large amounts of tube feeding were suctioned. Aspiration pneumonia Acute encephalopathy acute cva right frontal/occipital. 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 Chronic benzodiazepine use, Chronic opioid use Depression disorder urine retention melanotic stool. Precedex titrated off. on klononpin scheduled Fentanyl patch 25 mcg/h home dose. Seroquel 50 mg every 12 hourly as needed for agitation. stopped fentanyl due to sedation. ct head no acute cva initially....repeat CT brain shows concern for evolving cva in occipital/frontal areas. cta showed 80percent obstruction and areas of ulceration proximal to right carotid stent Unable to do MRI brain secondary to retained metal and I according to . Has bilateral internal carotid artery stents. CTA revealed right carotid artery stenosis proximal to internal carotid artery stent. Vascular surgery consult requested by neurology. On aspirin, Plavix on hold for possible gi procedures. . Vascular planning to reevaluate intervention when stable Extubated on 12/14. moved back to ICU for ongoing aspiration. mccray for urine retention. attempt removal when more active PT consultation prn oral suction. dvt prophylaxis. cont nebs. discussed abx with ID. stopped zosyn for pneumonia on 12/29 cont tube feeding support. cont reglan resumed lovenox egd when more stable planned. [facility] on 12/29. at risk for resp decompensation. Elevated troponin Essential hypertension Coronary artery disease Bilateral carotid artery stents Troponin peaked at 0.39. EKG revealed no acute ST changes or bundle-branch blocks Continue amlodipine 10 mg daily/home medication for hypertension Limited 2D echocardiogram. : (2) Respiratory failure Code(s): J96.90 - Respiratory failure, unspecified, unspecified whether with hypoxia or hypercapnia Status: Acute (3) Altered mental status Code(s): R41.82 - Altered mental status, unspecified Status: Acute
[2017-12-30] MEDS: Senna/Docusate Sodium 8.6/50 MG Tablet PO SCH ×2 (08:48→22:53)
[2017-12-30] MEDS: Pantoprazole Inj 40 MG Vial IV.PUSH SCH ×2 (08:48→22:08)
[2017-12-30] MEDS: amLODIPine 10 MG Tablet PO SCH (08:48)
[2017-12-30] MEDS: Mupirocin 2% Nasal Oint Topical Syringe EACH NARE SCH ×2 (08:48→22:06)
[2017-12-30] MEDS: Aspirin 325 MG Tablet PO SCH (08:49)
[2017-12-30] MEDS: Chlorhexidine 0.12% Oral Kit 15 ML UDC OROPHARYNG SCH ×2 (08:49→22:05)
--- NOTE | 2017-12-30 10:30 | P.PNPL ---
Subjective Interval history: Patient is on 3L oxygen with good sats, afebrile. Physical Exam Vital signs: Vital Signs 12/29/17 11:00 12/29/17 12:00 12/29/17 13:00 Temperature 98.2 F Pulse Rate 104 H 96 H 93 H Respiratory Rate 21 17 22 Blood Pressure 117/64 126/70 151/81 H Pulse Oximetry 98 98 95 12/29/17 15:00 12/29/17 16:00 12/29/17 16:15 Temperature Pulse Rate 101 H 100 H Respiratory Rate Blood Pressure Pulse Oximetry 97 12/29/17 16:16 12/29/17 17:00 12/29/17 17:05 Temperature Pulse Rate 93 H 102 H Respiratory Rate 18 18 Blood Pressure Pulse Oximetry 12/29/17 17:06 12/29/17 18:00 12/29/17 19:00 Temperature 97.9 F 97.0 F L Pulse Rate 93 H 100 H 98 H Respiratory Rate 18 16 Blood Pressure 155/79 H 152/72 H Pulse Oximetry 96 95 12/29/17 20:00 12/29/17 21:00 12/29/17 22:00 Temperature Pulse Rate 88 96 H 90 Respiratory Rate Blood Pressure Pulse Oximetry 12/29/17 22:05 12/29/17 23:00 12/30/17 00:00 Temperature 97.9 F Pulse Rate 101 H 99 H 110 H Respiratory Rate 20 16 16 Blood Pressure 127/64 Pulse Oximetry 96 93 L 12/30/17 01:00 12/30/17 02:00 12/30/17 03:00 Temperature 97.1 F L Pulse Rate 98 H 94 H 95 H Respiratory Rate 16 Blood Pressure 119/62 Pulse Oximetry 94 L 12/30/17 03:46 12/30/17 04:00 12/30/17 05:00 Temperature Pulse Rate 94 H 99 H 97 H Respiratory Rate 22 Blood Pressure Pulse Oximetry 12/30/17 06:00 12/30/17 07:00 12/30/17 08:45 Temperature Pulse Rate 89 88 90 Respiratory Rate 18 Blood Pressure Pulse Oximetry 94 L Intake & Output 12/29/17 12/30/17 12/30/17 18:59 06:59 18:59 Intake Total 1209 / 1209 Output Total 300 / 300 250 / 250 Balance -300 / -300 959 / 959 Weight 73 kg Intake: Tube Feeding 1209 / 1209 Output: Urine 300 / 300 250 / 250 Other: Date of Last Bowel Movement 12/25/17 12/25/17 - Constitutional no acute distress - Routine HEENT Exam Head: Present: normocephalic, atraumatic Eye: Present: EOMI, PERRL, normal accommodation, conjunctivae pink ENT: Present: mucous membranes moist - Routine Neck Exam Present: supple, full ROM, trachea midline - Routine Respiratory Exam Present: CTA bilaterally - Routine Cardiovascular Exam Present: RRR, S1, S2 - Routine Abdominal Exam Present: soft, normoactive bowel sounds - Routine Extremities Exam Present: full ROM, pulses intact - Routine Skin Exam Present: intact, dry - Routine Neurological Exam Present: alert, oriented X3, CN II-XII intact - Routine Psychiatric Exam Present: normal affect - Urinary Catheter Management Indwelling Urethral Catheter Cath placed during this visit: yes, but has since been removed by the nurse Reason for continuing: Acute urinary retention Insertion date: 12/24/17 Insertion time: 15:45 Removal date: 12/22/17 Removal time: 17:30 Straight Cath placed during this visit: yes Reason for continuing: Acute urinary retention Insertion date: 12/24/17 Insertion time: 13:00 Assessment and Plan - Plan 1)Resp Insuff 2)RLL pneumonia 3)Enlarged subcarinal and right hilar lymph nodes. adenopathy 4)CVA 5)Leukocytosis...trending down 6)Chronic dysphagia s/p PEG tube placement 7)Head and Neck ca Plan Continue with oxygen keep sats >92% Bronchodilators Aspiration precautions off abx monitor for signs of infections ( Fever, WBC) 12/11 Sputum: Pseudomonas, E.coli, Beta strep GI/DVT prophylaxis- On Lovenox 40mg daily Continue treatment plan
--- NOTE | 2017-12-30 13:55 | P.PNID ---
Infectious Disease Brief Note DW who agreed and stopped antibiotics. Patient at risk for recurrent aspiration. Follow clinically. Will sign off please call back if any change in clinical condition or questions. Vital Signs - 24 hr 12/29/17 15:00 12/29/17 16:00 12/29/17 16:15 Temperature Pulse Rate 101 H 100 H Respiratory Rate Blood Pressure Pulse Oximetry 97 12/29/17 16:16 12/29/17 17:00 12/29/17 17:05 Temperature Pulse Rate 93 H 102 H Respiratory Rate 18 18 Blood Pressure Pulse Oximetry 12/29/17 17:06 12/29/17 18:00 12/29/17 19:00 Temperature 97.9 F 97.0 F L Pulse Rate 93 H 100 H 98 H Respiratory Rate 18 16 Blood Pressure 155/79 H 152/72 H Pulse Oximetry 96 95 12/29/17 20:00 12/29/17 21:00 12/29/17 22:00 Temperature Pulse Rate 88 96 H 90 Respiratory Rate Blood Pressure Pulse Oximetry 12/29/17 22:05 12/29/17 23:00 12/30/17 00:00 Temperature 97.9 F Pulse Rate 101 H 99 H 110 H Respiratory Rate 20 16 16 Blood Pressure 127/64 Pulse Oximetry 96 93 L 12/30/17 01:00 12/30/17 02:00 12/30/17 03:00 Temperature 97.1 F L Pulse Rate 98 H 94 H 95 H Respiratory Rate 16 Blood Pressure 119/62 Pulse Oximetry 94 L 12/30/17 03:46 12/30/17 04:00 12/30/17 05:00 Temperature Pulse Rate 94 H 99 H 97 H Respiratory Rate 22 Blood Pressure Pulse Oximetry 12/30/17 06:00 12/30/17 07:00 12/30/17 08:00 Temperature 98.1 F Pulse Rate 89 88 110 H Respiratory Rate 17 Blood Pressure 122/71 Pulse Oximetry 94 L 12/30/17 08:45 12/30/17 09:00 12/30/17 10:00 Temperature Pulse Rate 90 108 H 108 H Respiratory Rate 18 Blood Pressure Pulse Oximetry 94 L 12/30/17 11:00 12/30/17 12:00 12/30/17 13:00 Temperature 97.8 F Pulse Rate 91 H 111 H 107 H Respiratory Rate 19 Blood Pressure 118/73 Pulse Oximetry 93 L Laboratory Results - last 24 hr 12/29/17 12/29/17 12/30/17 18:10 23:54 05:44 WBC RBC Hgb Hct MCV MCH MCHC RDW Plt Count MPV Neut % (Auto) Lymph % (Auto) [place] % (Auto) Eos % (Auto) Baso % (Auto) Neut # (Auto) Lymph # (Auto) [place] # (Auto) Eos # (Auto) Baso # (Auto) WBC Differential Differential Comment Sodium Potassium Chloride Carbon Dioxide Anion Gap BUN Creatinine Estimated GFR POC Glucose 115 H 137 H 128 H Random Glucose Calcium Total Bilirubin Direct Bilirubin Indirect Bilirubin AST ALT Alkaline Phosphatase Total Protein Albumin 12/30/17 12/30/17 12/30/17 07:37 07:37 11:15 WBC 8.2 RBC 2.90 L Hgb 9.0 L Hct 28.0 L MCV 96.7 MCH 31.2 MCHC 32.2 RDW 16.7 Plt Count 757 H MPV 8.0 Neut % (Auto) 64.3 Lymph % (Auto) 24.3 [place] % (Auto) 8.0 Eos % (Auto) 2.6 Baso % (Auto) 0.8 Neut # (Auto) 5.3 Lymph # (Auto) 2.0 [place] # (Auto) 0.7 Eos # (Auto) 0.2 Baso # (Auto) 0.1 WBC Differential . Differential Comment Auto diff final Sodium 142 Potassium 3.7 Chloride 106 Carbon Dioxide 27.9 Anion Gap 8 BUN 12 Creatinine 0.63 Estimated GFR Greater than 89 POC Glucose 101 Random Glucose 111 H Calcium 8.4 L Total Bilirubin 0.2 Direct Bilirubin 0.1 Indirect Bilirubin 0.1 AST 40 H ALT 164 H Alkaline Phosphatase 124 H Total Protein 7.2 D Albumin 2.2 L
[2017-12-30] MEDS: Mirtazapine 15 MG Tablet PO SCH (22:15)
[2017-12-30] MEDS: clonazePAM 0.5 MG Tablet PO SCH (22:16)
[2017-12-30] MEDS: Enoxaparin Inj 40 MG/0.4 ML Syringe SQ SCH (23:53)
[2017-12-31] MEDS: Oral Hygiene Kit OROPHARYNG SCH ×3 (03:55→18:36)
[2017-12-31 05:32] LABS: Anion Gap 9 meq/L (5-15); Blood Urea Nitrogen 14 mg/dL (7-18); Calcium 8.5 mg/dL (8.5-10.1); Chloride 106 meq/L (98-107); Glomerular Filtration Rate Greater Than 89 mL/min (>89); Glucose,Random 134 mg/dL (74-106); Potassium 3.5 meq/L (3.5-5.1); Sodium 144 meq/L (136-145)
[2017-12-31] MEDS: Insulin NovoLOG Aspart Correctional Sugar Inj SQ SCH ×3 (06:02→18:36)
[2017-12-31] MEDS: Aspirin 325 MG Tablet PO SCH (09:09)
[2017-12-31] MEDS: Pantoprazole Inj 40 MG Vial IV.PUSH SCH ×2 (09:09→21:36)
[2017-12-31] MEDS: Chlorhexidine 0.12% Oral Kit 15 ML UDC OROPHARYNG SCH ×2 (09:10→21:41)
[2017-12-31] MEDS: amLODIPine 10 MG Tablet PO SCH (09:10)
[2017-12-31] MEDS: Mupirocin 2% Nasal Oint Topical Syringe EACH NARE SCH ×2 (09:10→21:43)
[2017-12-31] MEDS: Senna/Docusate Sodium 8.6/50 MG Tablet PO SCH ×2 (09:10→21:41)
--- NOTE | 2017-12-31 09:29 | P.PNPL ---
Subjective Interval history: Patient is lying in bed in NAD. Afebrile. Awake and alert. Physical Exam Vital signs: Vital Signs 12/30/17 10:00 12/30/17 11:00 12/30/17 12:00 Temperature 97.8 F Pulse Rate 108 H 91 H 111 H Respiratory Rate 19 18 Blood Pressure 118/73 Pulse Oximetry 93 L 12/30/17 13:00 12/30/17 14:00 12/30/17 15:00 Temperature 98 F Pulse Rate 107 H 101 H 98 H Respiratory Rate 18 Blood Pressure 149/82 H Pulse Oximetry 94 L 12/30/17 16:00 12/30/17 16:53 12/30/17 17:00 Temperature Pulse Rate 101 H 101 H 108 H Respiratory Rate 18 18 Blood Pressure Pulse Oximetry 12/30/17 18:00 12/30/17 19:00 12/30/17 20:00 Temperature 97 F L Pulse Rate 100 H 99 H 98 H Respiratory Rate 18 Blood Pressure 143/71 H Pulse Oximetry 94 L 12/30/17 20:03 12/30/17 21:00 12/30/17 22:00 Temperature Pulse Rate 102 H 96 H Respiratory Rate Blood Pressure Pulse Oximetry 93 L 12/30/17 23:00 12/31/17 00:00 12/31/17 01:00 Temperature Pulse Rate 94 H 100 H 96 H Respiratory Rate 16 Blood Pressure 131/69 Pulse Oximetry 98 12/31/17 02:00 12/31/17 03:00 12/31/17 03:18 Temperature Pulse Rate 98 H 97 H 99 H Respiratory Rate 16 18 Blood Pressure 118/60 Pulse Oximetry 96 12/31/17 04:00 12/31/17 05:00 12/31/17 06:00 Temperature Pulse Rate 94 H 96 H 100 H Respiratory Rate Blood Pressure Pulse Oximetry 12/31/17 07:42 Temperature Pulse Rate 95 H Respiratory Rate 18 Blood Pressure Pulse Oximetry 96 Intake & Output 12/30/17 12/31/17 12/31/17 18:59 06:59 18:59 Intake Total 720 / 720 720 / 720 Output Total 150 / 150 500 / 500 Balance 570 / 570 220 / 220 Weight 72 kg Intake: Oral 720 / 720 Tube Feeding 720 / 720 Output: Urine 150 / 150 500 / 500 Other: Date of Last Bowel Movement 12/30/17 12/30/17 # Bowel Movements 0 - Constitutional no acute distress - Routine HEENT Exam Head: Present: normocephalic, atraumatic Eye: Present: EOMI, PERRL, normal accommodation, conjunctivae pink - Routine Neck Exam Present: supple, full ROM, trachea midline - Routine Respiratory Exam Present: CTA bilaterally - Routine Cardiovascular Exam Present: RRR, S1, S2 - Routine Abdominal Exam Present: soft, normoactive bowel sounds - Routine Extremities Exam Present: full ROM - Routine Skin Exam Present: intact, dry - Routine Neurological Exam Present: alert, CN II-XII intact - Urinary Catheter Management Indwelling Urethral Catheter Cath placed during this visit: yes, but has since been removed by the nurse Reason for continuing: Acute urinary retention Insertion date: 12/24/17 Insertion time: 15:45 Removal date: 12/22/17 Removal time: 17:30 Straight Cath placed during this visit: yes Reason for continuing: Acute urinary retention Insertion date: 12/24/17 Insertion time: 13:00 Assessment and Plan - Plan 1)Resp Insuff 2)RLL pneumonia 3)Enlarged subcarinal and right hilar lymph nodes. adenopathy 4)CVA 5)Leukocytosis...trending down 6)Chronic dysphagia s/p PEG tube placement 7)Head and Neck ca Plan Continue with oxygen keep sats >92% Bronchodilators Aspiration precautions CXR 12/27: Patchy coarse interstitial parenchymal opacity is grossly unchanged. No significant alveolar consolidation or pleural effusion off abx monitor for signs of infections ( Fever, WBC) 12/11 Sputum: Pseudomonas, E.coli, Beta strep GI/DVT prophylaxis- On Lovenox 40mg daily Continue treatment plan
--- NOTE | 2017-12-31 10:19 | P.PNIM ---
Subjective Interval history: doing better. was oob yesterday Physical Exam Vital signs: Vital Signs 12/30/17 11:00 12/30/17 12:00 12/30/17 13:00 Temperature 97.8 F Pulse Rate 91 H 111 H 107 H Respiratory Rate 19 18 Blood Pressure 118/73 Pulse Oximetry 93 L 12/30/17 14:00 12/30/17 15:00 12/30/17 16:00 Temperature 98 F Pulse Rate 101 H 98 H 101 H Respiratory Rate 18 18 Blood Pressure 149/82 H Pulse Oximetry 94 L 12/30/17 16:53 12/30/17 17:00 12/30/17 18:00 Temperature Pulse Rate 101 H 108 H 100 H Respiratory Rate 18 Blood Pressure Pulse Oximetry 12/30/17 19:00 12/30/17 20:00 12/30/17 20:03 Temperature 97 F L Pulse Rate 99 H 98 H Respiratory Rate 18 Blood Pressure 143/71 H Pulse Oximetry 94 L 93 L 12/30/17 21:00 12/30/17 22:00 12/30/17 23:00 Temperature Pulse Rate 102 H 96 H 94 H Respiratory Rate 16 Blood Pressure 131/69 Pulse Oximetry 98 12/31/17 00:00 12/31/17 01:00 12/31/17 02:00 Temperature Pulse Rate 100 H 96 H 98 H Respiratory Rate Blood Pressure Pulse Oximetry 12/31/17 03:00 12/31/17 03:18 12/31/17 04:00 Temperature Pulse Rate 97 H 99 H 94 H Respiratory Rate 16 18 Blood Pressure 118/60 Pulse Oximetry 96 12/31/17 05:00 12/31/17 06:00 12/31/17 07:42 Temperature Pulse Rate 96 H 100 H 95 H Respiratory Rate 18 Blood Pressure Pulse Oximetry 96 Intake & Output 12/30/17 12/31/17 12/31/17 18:59 06:59 18:59 Intake Total 720 / 720 720 / 720 Output Total 150 / 150 500 / 500 Balance 570 / 570 220 / 220 Weight 72 kg Intake: Oral 720 / 720 Tube Feeding 720 / 720 Output: Urine 150 / 150 500 / 500 Other: Date of Last Bowel Movement 12/30/17 12/30/17 # Bowel Movements 0 heart reg lung course bs abd s/nt. peg ext no edema mccray. - Urinary Catheter Management Indwelling Urethral Catheter Cath placed during this visit: yes, but has since been removed by the nurse Reason for continuing: Acute urinary retention Insertion date: 12/24/17 Insertion time: 15:45 Removal date: 12/22/17 Removal time: 17:30 Straight Cath placed during this visit: yes Reason for continuing: Acute urinary retention Insertion date: 12/24/17 Insertion time: 13:00 Results - Labs CBC & Chem 7: 12/30/17 07:37 12/31/17 04:35 Laboratory Results - last 24 hr 12/30/17 12/30/17 12/30/17 11:15 17:27 23:52 Sodium Potassium Chloride Carbon Dioxide Anion Gap BUN Creatinine Estimated GFR POC Glucose 101 125 H 124 H Random Glucose Calcium 12/31/17 12/31/17 04:35 05:57 Sodium 144 Potassium 3.5 Chloride 106 Carbon Dioxide 29.0 Anion Gap 9 BUN 14 Creatinine 0.76 Estimated GFR Greater than 89 POC Glucose 121 H Random Glucose 134 H Calcium 8.5 Assessment and Plan - Assessment (1) Aspiration pneumonia Code(s): J69.0 - Pneumonitis due to inhalation of food and vomit Status: Acute Plan: 67-year-old male with past medical history of head and neck cancer presents from home after being found unresponsive. Patient was found by EMS to have spontaneous respirations palpable pulse and blood pressure but markedly decreased level of consciousness, hypotensive with large amount of tube feeding contents in the oral cavity. Patient has history of head neck cancer and takes no oral medications takes all medications and feedings through PEG tube. Patient was last seen normal approximately at breakfast time on Tuesday and then family members found him unresponsive. Unknown downtime. Upon EMS arrival patient was assessed and suctioned and initial O2 saturations were 60% patient was placed on supplemental oxygen with improved ventilations and then subsequently intubated with a 7.5 endotracheal tube. Per EMS copious amounts of suctioning was performed and large amounts of tube feeding were suctioned. Aspiration pneumonia Acute encephalopathy acute cva right frontal/occipital. 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 Chronic benzodiazepine use, Chronic opioid use Depression disorder urine retention melanotic stool. Precedex titrated off. on klononpin scheduled Fentanyl patch 25 mcg/h home dose. Seroquel 50 mg every 12 hourly as needed for agitation. stopped fentanyl due to sedation. ct head no acute cva initially....repeat CT brain shows concern for evolving cva in occipital/frontal areas. cta showed 80percent obstruction and areas of ulceration proximal to right carotid stent Unable to do MRI brain secondary to retained metal and I according to . Has bilateral internal carotid artery stents. CTA revealed right carotid artery stenosis proximal to internal carotid artery stent. Vascular surgery consult requested by neurology. On aspirin, Plavix on hold for possible gi procedures. . Vascular planning to reevaluate intervention when stable Extubated on 12/14. moved back to ICU for ongoing aspiration. mccray for urine retention. attempt removal when more active PT consultation prn oral suction. dvt prophylaxis. cont nebs. discussed abx with ID. stopped zosyn for pneumonia on 12/29 cont tube feeding support. cont reglan resumed lovenox egd when more stable planned. transferred to [facility] on 12/29. at risk for resp decompensation. pt has been getting oob with PT. down to 3lnc. cont weaning. check with consultants on Tuesday for any remaining procedures prior to dc to snf. Elevated troponin Essential hypertension Coronary artery disease Bilateral carotid artery stents Troponin peaked at 0.39. EKG revealed no acute ST changes or bundle-branch blocks Continue amlodipine 10 mg daily/home medication for hypertension Limited 2D echocardiogram. : (2) Respiratory failure Code(s): J96.90 - Respiratory failure, unspecified, unspecified whether with hypoxia or hypercapnia Status: Acute (3) Altered mental status Code(s): R41.82 - Altered mental status, unspecified Status: Acute
[2017-12-31] MEDS: clonazePAM 0.5 MG Tablet PO SCH (21:33)
[2017-12-31] MEDS: Mirtazapine 15 MG Tablet PO SCH (21:33)
[2018-01-01] MEDS: Enoxaparin Inj 40 MG/0.4 ML Syringe SQ SCH ×2 (00:24→23:39)
[2018-01-01] MEDS: Oral Hygiene Kit OROPHARYNG SCH ×5 (03:52→23:40)
[2018-01-01] MEDS: Insulin NovoLOG Aspart Correctional Sugar Inj SQ SCH ×5 (03:52→23:40)
[2018-01-01] MEDS: Chlorhexidine 0.12% Oral Kit 15 ML UDC OROPHARYNG SCH ×2 (07:28→20:56)
[2018-01-01] MEDS: Pantoprazole Inj 40 MG Vial IV.PUSH SCH ×2 (09:40→21:41)
[2018-01-01] MEDS: amLODIPine 10 MG Tablet PO SCH (09:40)
[2018-01-01] MEDS: Senna/Docusate Sodium 8.6/50 MG Tablet PO SCH ×2 (09:40→21:44)
[2018-01-01] MEDS: Mupirocin 2% Nasal Oint Topical Syringe EACH NARE SCH ×2 (09:41→21:46)
[2018-01-01] MEDS: Aspirin 325 MG Tablet PO SCH (09:41)
--- NOTE | 2018-01-01 09:47 | P.PNPL ---
Subjective Interval history: No events overnight. On 3L oxygen, denies any worsening of dyspnea from baseline. Physical Exam Vital signs: Vital Signs 12/31/17 10:00 12/31/17 11:00 12/31/17 12:00 Temperature 97.6 F Pulse Rate 100 H 97 H 96 H Respiratory Rate 16 Blood Pressure 125/71 Pulse Oximetry 96 12/31/17 13:00 12/31/17 14:00 12/31/17 15:00 Temperature 98.2 F Pulse Rate 104 H 98 H 98 H Respiratory Rate 16 Blood Pressure 143/80 H Pulse Oximetry 100 12/31/17 15:50 12/31/17 16:00 12/31/17 17:00 Temperature Pulse Rate 93 H 90 100 H Respiratory Rate 16 Blood Pressure Pulse Oximetry 12/31/17 18:00 12/31/17 19:00 12/31/17 20:00 Temperature 97.4 F L Pulse Rate 102 H 99 H 96 H Respiratory Rate 16 Blood Pressure 135/72 Pulse Oximetry 95 12/31/17 21:00 12/31/17 21:04 12/31/17 22:00 Temperature Pulse Rate 94 H 96 H 106 H Respiratory Rate 16 Blood Pressure Pulse Oximetry 97 12/31/17 23:00 01/01/18 00:00 01/01/18 01:00 Temperature Pulse Rate 97 H 98 H 98 H Respiratory Rate 16 Blood Pressure 125/73 Pulse Oximetry 95 01/01/18 02:00 01/01/18 03:00 01/01/18 04:00 Temperature Pulse Rate 90 96 H 94 H Respiratory Rate 16 Blood Pressure 146/81 H Pulse Oximetry 95 01/01/18 04:02 01/01/18 05:00 01/01/18 06:00 Temperature Pulse Rate 94 H 98 H 100 H Respiratory Rate 16 Blood Pressure Pulse Oximetry 01/01/18 07:00 Temperature Pulse Rate 96 H Respiratory Rate Blood Pressure Pulse Oximetry Intake & Output 12/31/17 01/01/18 01/01/18 18:59 06:59 18:59 Intake Total 480 / 480 Output Total 200 / 200 600 / 600 Balance -200 / -200 -120 / -120 Weight 71 kg Intake: Oral 480 / 480 Output: Urine 200 / 200 600 / 600 Other: Date of Last Bowel Movement 12/30/17 12/30/17 # Bowel Movements 0 - Constitutional no acute distress - Routine HEENT Exam Head: Present: normocephalic, atraumatic Eye: Present: EOMI, PERRL, normal accommodation, conjunctivae pink ENT: Present: mucous membranes moist - Routine Neck Exam Present: supple, full ROM, trachea midline - Routine Respiratory Exam Present: CTA bilaterally - Routine Cardiovascular Exam Present: RRR, S1, S2 - Routine Abdominal Exam Present: soft, normoactive bowel sounds - Routine Extremities Exam Present: full ROM - Routine Skin Exam Present: intact, dry - Routine Neurological Exam Present: alert, oriented X3, CN II-XII intact - Urinary Catheter Management Indwelling Urethral Catheter Cath placed during this visit: yes, but has since been removed by the nurse Reason for continuing: Acute urinary retention Insertion date: 12/24/17 Insertion time: 15:45 Removal date: 12/22/17 Removal time: 17:30 Straight Cath placed during this visit: yes Reason for continuing: Acute urinary retention Insertion date: 12/24/17 Insertion time: 13:00 Assessment and Plan - Plan 1)Resp Insuff 2)RLL pneumonia 3)Enlarged subcarinal and right hilar lymph nodes. adenopathy 4)CVA 5)Leukocytosis...trending down 6)Chronic dysphagia s/p PEG tube placement 7)Head and Neck ca Plan Continue with oxygen keep sats >92% Bronchodilators Aspiration precautions CXR 12/27: Patchy coarse interstitial parenchymal opacity is grossly unchanged. No significant alveolar consolidation or pleural effusion Check CXR in am off abx monitor for signs of infections ( Fever, WBC) 12/11 Sputum: Pseudomonas, E.coli, Beta strep GI/DVT prophylaxis- On Lovenox 40mg daily Continue treatment plan
--- NOTE | 2018-01-01 10:17 | P.PNIM ---
Subjective Interval history: no new complaints ambulated with PT yesterday Physical Exam Vital signs: Vital Signs 12/31/17 11:00 12/31/17 12:00 12/31/17 13:00 Temperature 97.6 F Pulse Rate 97 H 96 H 104 H Respiratory Rate 16 Blood Pressure 125/71 Pulse Oximetry 96 12/31/17 14:00 12/31/17 15:00 12/31/17 15:50 Temperature 98.2 F Pulse Rate 98 H 98 H 93 H Respiratory Rate 16 16 Blood Pressure 143/80 H Pulse Oximetry 100 12/31/17 16:00 12/31/17 17:00 12/31/17 18:00 Temperature Pulse Rate 90 100 H 102 H Respiratory Rate Blood Pressure Pulse Oximetry 12/31/17 19:00 12/31/17 20:00 12/31/17 21:00 Temperature 97.4 F L Pulse Rate 99 H 96 H 94 H Respiratory Rate 16 Blood Pressure 135/72 Pulse Oximetry 95 12/31/17 21:04 12/31/17 22:00 12/31/17 23:00 Temperature Pulse Rate 96 H 106 H 97 H Respiratory Rate 16 16 Blood Pressure 125/73 Pulse Oximetry 97 95 01/01/18 00:00 01/01/18 01:00 01/01/18 02:00 Temperature Pulse Rate 98 H 98 H 90 Respiratory Rate Blood Pressure Pulse Oximetry 01/01/18 03:00 01/01/18 04:00 01/01/18 04:02 Temperature Pulse Rate 96 H 94 H 94 H Respiratory Rate 16 16 Blood Pressure 146/81 H Pulse Oximetry 95 01/01/18 05:00 01/01/18 06:00 01/01/18 07:00 Temperature Pulse Rate 98 H 100 H 96 H Respiratory Rate Blood Pressure Pulse Oximetry 01/01/18 08:00 01/01/18 10:00 Temperature Pulse Rate 95 H 96 H Respiratory Rate 17 18 Blood Pressure 158/73 H Pulse Oximetry 94 L 97 Intake & Output 12/31/17 01/01/18 01/01/18 18:59 06:59 18:59 Intake Total 480 / 480 Output Total 200 / 200 600 / 600 Balance -200 / -200 -120 / -120 Weight 71 kg Intake: Oral 480 / 480 Output: Urine 200 / 200 600 / 600 Other: Date of Last Bowel Movement 12/30/17 12/30/17 # Bowel Movements 0 3lnc heart reg lung good air entry abd s/nt/peg ext no pitting mccray - Urinary Catheter Management Indwelling Urethral Catheter Cath placed during this visit: yes, but has since been removed by the nurse Reason for continuing: Acute urinary retention Insertion date: 12/24/17 Insertion time: 15:45 Removal date: 12/22/17 Removal time: 17:30 Straight Cath placed during this visit: yes Reason for continuing: Acute urinary retention Insertion date: 12/24/17 Insertion time: 13:00 Results - Labs CBC & Chem 7: 12/30/17 07:37 12/31/17 04:35 Laboratory Results - last 24 hr 12/31/17 12/31/17 01/01/18 13:21 18:34 00:23 POC Glucose 126 H 115 H 116 H 01/01/18 06:13 POC Glucose 150 H Assessment and Plan - Assessment (1) Aspiration pneumonia Code(s): J69.0 - Pneumonitis due to inhalation of food and vomit Status: Acute Plan: 67-year-old male with past medical history of head and neck cancer presents from home after being found unresponsive. Patient was found by EMS to have spontaneous respirations palpable pulse and blood pressure but markedly decreased level of consciousness, hypotensive with large amount of tube feeding contents in the oral cavity. Patient has history of head neck cancer and takes no oral medications takes all medications and feedings through PEG tube. Patient was last seen normal approximately at breakfast time on Tuesday and then family members found him unresponsive. Unknown downtime. Upon EMS arrival patient was assessed and suctioned and initial O2 saturations were 60% patient was placed on supplemental oxygen with improved ventilations and then subsequently intubated with a 7.5 endotracheal tube. Per EMS copious amounts of suctioning was performed and large amounts of tube feeding were suctioned. Aspiration pneumonia Acute encephalopathy acute cva right frontal/occipital. 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 Chronic benzodiazepine use, Chronic opioid use Depression disorder urine retention melanotic stool. Precedex titrated off. on klononpin scheduled Fentanyl patch 25 mcg/h home dose. Seroquel 50 mg every 12 hourly as needed for agitation. stopped fentanyl due to sedation. ct head no acute cva initially....repeat CT brain shows concern for evolving cva in occipital/frontal areas. cta showed 80percent obstruction and areas of ulceration proximal to right carotid stent Unable to do MRI brain secondary to retained metal and I according to . Has bilateral internal carotid artery stents. CTA revealed right carotid artery stenosis proximal to internal carotid artery stent. Vascular surgery consult requested by neurology. On aspirin, Plavix on hold for possible gi procedures. . Vascular planning to reevaluate intervention when stable Extubated on 12/14. moved back to ICU for ongoing aspiration. mccray for urine retention. attempt removal when more active PT consultation prn oral suction. dvt prophylaxis. cont nebs. discussed abx with ID. stopped zosyn for pneumonia on 12/29 cont tube feeding support. cont reglan resumed lovenox egd when more stable planned. transferred to [facility] on 12/29. at risk for resp decompensation. pt has been getting oob with PT. down to 3lnc. cont weaning. check with consultants on Tuesday (vascular/GI/pulmonary)for any remaining procedures prior to dc to snf. consider attempt removal of mccray prior to dc Elevated troponin Essential hypertension Coronary artery disease Bilateral carotid artery stents Troponin peaked at 0.39. EKG revealed no acute ST changes or bundle-branch blocks Continue amlodipine 10 mg daily/home medication for hypertension Limited 2D echocardiogram. : (2) Respiratory failure Code(s): J96.90 - Respiratory failure, unspecified, unspecified whether with hypoxia or hypercapnia Status: Acute (3) Altered mental status Code(s): R41.82 - Altered mental status, unspecified Status: Acute
[2018-01-01] MEDS: Mirtazapine 15 MG Tablet PO SCH (21:35)
[2018-01-01] MEDS: clonazePAM 0.5 MG Tablet PO SCH (21:36)
--- NOTE | 2018-01-02 03:48 | XR ---
EXAM DATE: 01/02/2018 3:43 AM EDT AGE/SEX: 67 years / Male INDICATIONS: Shortness of breath, possible pulmonary disease. CLINICAL DATA: This is the patient's subsequent encounter. Patient reports that signs and symptoms h ave been present for 3 weeks and indicates a pain score of 0/10. MEDICAL/SURGICAL HISTORY: Cardiovascular disease. Cerebrovascular disease. Hypertension. Thr oat and tongue ca. Coronary artery stent. Appendectomy. Gastric tube. COMPARISON: [facility] [place], CHEST 1V SINGLE AP, 12/27/2017. . FINDINGS: Single AP view of the chest. Scarring or atelectasis at the right lung base. The lungs are otherwise clear. Cardiomediastinal silhouette within normal limits. No evidence of pleural effusio n or pneumothorax. CONCLUSION: Scarring or atelectasis at the right lung base. No other acute cardiopulmonary disease i dentified. Electronically signed by: Denny Coyle MD 01/02/2018 3:47 AM EDT
[2018-01-02] MEDS: Oral Hygiene Kit OROPHARYNG SCH ×3 (04:12→19:05)
[2018-01-02] MEDS: Insulin NovoLOG Aspart Correctional Sugar Inj SQ SCH ×3 (06:02→19:02)
[2018-01-02] MEDS: Chlorhexidine 0.12% Oral Kit 15 ML UDC OROPHARYNG SCH ×2 (09:41→20:04)
[2018-01-02] MEDS: Pantoprazole Inj 40 MG Vial IV.PUSH SCH ×2 (09:49→20:06)
[2018-01-02] MEDS: amLODIPine 10 MG Tablet PO SCH (09:49)
[2018-01-02] MEDS: Aspirin 325 MG Tablet PO SCH (09:49)
[2018-01-02] MEDS: Mupirocin 2% Nasal Oint Topical Syringe EACH NARE SCH ×2 (09:49→20:04)
[2018-01-02] MEDS: Senna/Docusate Sodium 8.6/50 MG Tablet PO SCH ×2 (09:50→20:06)
--- NOTE | 2018-01-02 16:14 | P.DIET ---
Nutritional Evaluation Type of nutrition evaluation: follow-up Nutrition consult regarding: Tube Feeding Objective - Diagnosis Respiratory Failure, Aspiration - Objective [place] body weight: 76 kg % IBW: 110 (IBW - 166#) Body Weight Used for Calculations: Actual (82.9) Energy Needs - Lower Range (kCal/kg): 25 Energy Needs - Upper Range (kCal/kg): 30 Lower Limit kCal/kg (kCals): 2,073 Upper Limit kCal/kg (kCals): 2,487 Lower Limit Protein Factor (Grams per Kg): 1.2 Upper Limit Protein Factor (Grams per Kg): 1.5 Lower Protein Needs (Protein): 99 Upper Protein Needs (Protein): 124 Dietitian Reviewed in Medical Record: Curent medications, Intake & Output, Labs , Medical history, Tube feeding Diet Order: NPO Objective Comments: PMH: CAD, HTN, Throat/Tongue Cancer, Depression, PEG Tube Assessment Assessment: Pt. with noted decreased wt., CBW = 71 kg but I question the accuracy of wt of 81kg on 12/22-12/24. Pt. with +2BM 01/01 and +UOP. Pt is tolerating TFing at this time, goal rate is 60ml/hr. Recommend increasing TFing of Jevity 1.5 to goal rate of 65mls/hr. Will continue to monitor TF tolerance, clinical course, wt. and labs. Recommendations: 1. Recommend increasing TFing of Jevity 1.5 to goal rate of 65mls/hr. 2. Will continue to monitor TF tolerance, clinical course, wt. and labs. Dietitian to Monitor: Lab values, Intake & Output, Tube feeding tolerance, Weight change, Medical course
--- NOTE | 2018-01-02 17:06 | P.PNIM ---
Subjective Interval history: Pt with NO new clinical complaints. Pt is tolerating PO intake. Working with PT. Physical Exam Vital signs: 01/02/18 09:19 01/02/18 10:00 01/02/18 11:00 Temperature 98.4 F Pulse Rate 89 102 H 106 H Respiratory Rate 18 18 Blood Pressure 129/81 Pulse Oximetry 96 93 L Narrative: GENERAL: This is a well-nourished, well-developed patient, in no apparent distress. CARDIOVASCULAR: Regular rate and rhythm without murmurs, gallops, or rubs. RESPIRATORY: Clear to auscultation. Breath sounds equal bilaterally. No wheezes , rales, or rhonchi. GASTROINTESTINAL: Abdomen soft, non-tender, nondistended. Normal active bowel sounds MUSCULOSKELETAL: Extremities without clubbing, cyanosis, or edema. NEURO: Alert & Oriented x4 to person, place, time, situation. Moves all ext x4 - Urinary Catheter Management Indwelling Urethral Catheter Cath placed during this visit: yes, but has since been removed by the nurse Reason for continuing: Acute urinary retention Insertion date: 12/24/17 Insertion time: 15:45 Removal date: 12/22/17 Removal time: 17:30 Straight Cath placed during this visit: yes Reason for continuing: Acute urinary retention Insertion date: 12/24/17 Insertion time: 13:00 Results - Labs CBC & Chem 7: 12/30/17 07:37 01/05/18 10:30 - Imaging Chest CTA 12/21/17 00:00 1. Apparent right subclavian artery. 2. Mildly enlarged subcarinal and right hilar lymph nodes. adenopathy. 3. Scattered pulmonary infiltrates including right lower lobe consolidation with air bronchogram formation. 4. Atherosclerosis. 5. No evidence for pulmonary embolism. Liver Ultrasound 12/24/17 00:00 1. Negative ultrasound liver. Chest X-Ray 12/25/17 06:00 CONCLUSION: 1. Improved right lower lobe airspace disease. 2. Improved prominence of the right [place] which may reflect improving adenopathy. Chest X-Ray 01/02/18 00:00 CONCLUSION: Scarring or atelectasis at the right lung base. No other acute cardiopulmonary disease identified. Assessment and Plan - Assessment (1) Aspiration pneumonia Code(s): J69.0 - Pneumonitis due to inhalation of food and vomit Status: Acute Plan: 67-year-old male with past medical history of head and neck cancer presents from home after being found unresponsive. Patient was found by EMS to have spontaneous respirations palpable pulse and blood pressure but markedly decreased level of consciousness, hypotensive with large amount of tube feeding contents in the oral cavity. Patient has history of head neck cancer and takes no oral medications takes all medications and feedings through PEG tube. Patient was last seen normal approximately at breakfast time on Tuesday and then family members found him unresponsive. Unknown downtime. Upon EMS arrival patient was assessed and suctioned and initial O2 saturations were 60% patient was placed on supplemental oxygen with improved ventilations and then subsequently intubated with a 7.5 endotracheal tube. Per EMS copious amounts of suctioning was performed and large amounts of tube feeding were suctioned. Aspiration pneumonia Acute encephalopathy acute cva right frontal/occipital. 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 Chronic benzodiazepine use, Chronic opioid use Depression disorder urine retention melanotic stool. Precedex titrated off. on klononpin scheduled Fentanyl patch 25 mcg/h home dose. Seroquel 50 mg every 12 hourly as needed for agitation. stopped fentanyl due to sedation. ct head no acute cva initially....repeat CT brain shows concern for evolving cva in occipital/frontal areas. cta showed 80percent obstruction and areas of ulceration proximal to right carotid stent Unable to do MRI brain secondary to retained metal and I according to . Has bilateral internal carotid artery stents. CTA revealed right carotid artery stenosis proximal to internal carotid artery stent. Vascular surgery consult requested by neurology. On aspirin, Plavix on hold for possible gi procedures. . Vascular planning to reevaluate intervention when stable Extubated on 12/14. moved back to ICU for ongoing aspiration. mccray for urine retention. attempt removal when more active PT consultation prn oral suction. dvt prophylaxis. cont nebs. discussed abx with ID. stopped zosyn for pneumonia on 12/29 cont tube feeding support. cont reglan - hold lovenox - Case d/w with GI, EGD for 01/03 - Case d/w Vascular Surgery, Dr. Reese. He will reevaluate - continue to observe respiratory status - oxygen has been weaned from Bipap to 2L NC - anticipate d/c to SNF vs acute rehab in 2-3 days - Will discuss case with Pulmonary Medicine 01/03, possible repeat Bronchoscopy Elevated troponin Essential hypertension Coronary artery disease Bilateral carotid artery stents Troponin peaked at 0.39. EKG revealed no acute ST changes or bundle-branch blocks Continue amlodipine 10 mg daily/home medication for hypertension Limited 2D echocardiogram. : (2) Respiratory failure Code(s): J96.90 - Respiratory failure, unspecified, unspecified whether with hypoxia or hypercapnia Status: Resolved (3) Altered mental status Code(s): R41.82 - Altered mental status, unspecified Status: Acute (1) Aspiration pneumonia Qualifiers: Laterality: bilateral Lung location: unspecified part of lung (2) Respiratory failure Qualifiers: Chronicity: acute
--- NOTE | 2018-01-02 18:03 | P.PNGI ---
Subjective Interval history: Reconsulted for gi brown. Now stable for egd Physical Exam Vital signs: Vital Signs 01/01/18 19:00 01/01/18 20:00 01/01/18 20:44 Temperature 97.7 F Pulse Rate 97 H 96 H 94 H Respiratory Rate 18 16 Blood Pressure 115/68 Pulse Oximetry 93 L 92 L 01/01/18 21:00 01/01/18 22:00 01/01/18 23:00 Temperature Pulse Rate 98 H 98 H 95 H Respiratory Rate 16 Blood Pressure 125/74 Pulse Oximetry 93 L 01/02/18 00:00 01/02/18 01:00 01/02/18 02:00 Temperature Pulse Rate 100 H 96 H 90 Respiratory Rate Blood Pressure Pulse Oximetry 01/02/18 03:00 01/02/18 04:00 01/02/18 04:17 Temperature Pulse Rate 94 H 94 H 93 H Respiratory Rate 16 15 Blood Pressure 141/78 H Pulse Oximetry 93 L 01/02/18 05:00 01/02/18 06:00 01/02/18 07:00 Temperature 98.4 F Pulse Rate 94 H 98 H 105 H Respiratory Rate 18 Blood Pressure 144/75 H Pulse Oximetry 91 L 01/02/18 08:00 01/02/18 09:00 01/02/18 09:19 Temperature Pulse Rate 94 H 94 H 89 Respiratory Rate 18 Blood Pressure Pulse Oximetry 96 01/02/18 10:00 01/02/18 11:00 01/02/18 12:00 Temperature 98.4 F Pulse Rate 102 H 106 H 98 H Respiratory Rate 18 18 Blood Pressure 129/81 Pulse Oximetry 93 L 01/02/18 13:00 01/02/18 13:51 01/02/18 14:00 Temperature Pulse Rate 96 H 92 H Respiratory Rate 18 Blood Pressure Pulse Oximetry 01/02/18 16:32 01/02/18 17:00 Temperature 97.7 F Pulse Rate 91 H 97 H Respiratory Rate 16 18 Blood Pressure 127/60 Pulse Oximetry 98 Intake & Output 01/01/18 01/02/18 01/02/18 18:59 06:59 18:59 Intake Total 720 / 720 Output Total 700 / 700 Balance 20 / 20 Weight 71 kg Intake: Tube Feeding 720 / 720 Output: Urine 700 / 700 Other: Date of Last Bowel Movement 12/30/17 01/01/18 12/30/17 # Bowel Movements 2 0 - Constitutional no acute distress - Routine HEENT Exam Head: Present: normocephalic Eye: Present: EOMI - Routine Neck Exam Present: supple - Routine Respiratory Exam Present: CTA bilaterally - Routine Cardiovascular Exam Present: RRR - Routine Abdominal Exam Present: soft, normoactive bowel sounds - Urinary Catheter Management Indwelling Urethral Catheter Cath placed during this visit: yes, but has since been removed by the nurse Reason for continuing: Acute urinary retention Insertion date: 12/24/17 Insertion time: 15:45 Removal date: 12/22/17 Removal time: 17:30 Straight Cath placed during this visit: yes Reason for continuing: Acute urinary retention Insertion date: 12/24/17 Insertion time: 13:00 Results - Labs CBC & Chem 7: 12/30/17 07:37 12/31/17 04:35 Laboratory Results - last 24 hr 01/01/18 01/01/18 01/02/18 18:05 23:36 05:46 POC Glucose 143 H 146 H 129 H 01/02/18 12:29 POC Glucose 105 - Imaging Impressions Chest X-Ray 01/02/18 00:00 CONCLUSION: Scarring or atelectasis at the right lung base. No other acute cardiopulmonary disease identified. Assessment and Plan - Plan Seen and examined, in no distress. Tolerating TF. NPO including TF after midnight for egd . Discussed with pt. and nurse. Thank you
[2018-01-02] MEDS: clonazePAM 0.5 MG Tablet PO SCH (20:05)
[2018-01-02] MEDS: Mirtazapine 15 MG Tablet PO SCH (20:06)
[2018-01-03] MEDS: Insulin NovoLOG Aspart Correctional Sugar Inj SQ SCH ×3 (00:47→12:01)
[2018-01-03] MEDS: Oral Hygiene Kit OROPHARYNG SCH ×4 (00:47→15:19)
[2018-01-03] MEDS ORDERED: Phenylephrine/NS 1000 MCG/10ML Syringe IV.PUSH ONE (07:40)
[2018-01-03] MEDS: Senna/Docusate Sodium 8.6/50 MG Tablet PO SCH ×2 (08:29→20:37)
[2018-01-03] MEDS: amLODIPine 10 MG Tablet PO SCH (08:29)
[2018-01-03] MEDS: Pantoprazole Inj 40 MG Vial IV.PUSH SCH ×2 (08:30→20:36)
[2018-01-03] MEDS: Chlorhexidine 0.12% Oral Kit 15 ML UDC OROPHARYNG SCH ×2 (08:30→20:37)
[2018-01-03] MEDS: Mupirocin 2% Nasal Oint Topical Syringe EACH NARE SCH ×2 (08:40→20:37)
--- NOTE | 2018-01-03 10:54 | P.PN ---
Subjective Interval history: alert less sob Physical Exam Vital signs: Vital Signs 01/02/18 11:00 01/02/18 12:00 01/02/18 13:00 Temperature 98.4 F Pulse Rate 106 H 98 H 96 H Respiratory Rate 18 18 Blood Pressure 129/81 Pulse Oximetry 93 L 01/02/18 13:51 01/02/18 14:00 01/02/18 16:32 Temperature Pulse Rate 92 H 91 H Respiratory Rate 18 16 Blood Pressure Pulse Oximetry 01/02/18 17:00 01/02/18 19:51 01/02/18 20:00 Temperature 97.7 F 97.6 F Pulse Rate 97 H 95 H 93 H Respiratory Rate 18 18 Blood Pressure 127/60 160/60 H Pulse Oximetry 98 98 01/02/18 21:51 01/02/18 23:00 01/03/18 00:32 Temperature 97.7 F Pulse Rate 84 89 82 Respiratory Rate 14 18 Blood Pressure 149/77 H Pulse Oximetry 94 L 100 01/03/18 01:34 01/03/18 03:09 01/03/18 04:00 Temperature 97.5 F L Pulse Rate 77 91 H Respiratory Rate 14 18 Blood Pressure 124/59 L Pulse Oximetry 95 93 L 01/03/18 04:11 01/03/18 07:37 01/03/18 08:00 Temperature 97.5 F L Pulse Rate 82 81 93 H Respiratory Rate 18 17 Blood Pressure 132/75 Pulse Oximetry 94 L 96 Intake & Output 01/02/18 01/03/18 01/03/18 18:59 06:59 18:59 Other: Date of Last Bowel Movement 12/30/17 12/30/17 Narrative: GENERAL: This is a well-nourished, well-developed patient, in no apparent distress. CARDIOVASCULAR: Regular rate and rhythm without murmurs, gallops, or rubs. RESPIRATORY: Clear to auscultation. Breath sounds equal bilaterally. No wheezes , rales, or rhonchi. GASTROINTESTINAL: Abdomen soft, non-tender, nondistended. Normal active bowel sounds MUSCULOSKELETAL: Extremities without clubbing, cyanosis, or edema. NEURO: Alert & Oriented x4 to person, place, time, situation. Moves all ext x4 - Urinary Catheter Management Indwelling Urethral Catheter Cath placed during this visit: yes, but has since been removed by the nurse Reason for continuing: Acute urinary retention Insertion date: 12/24/17 Insertion time: 15:45 Removal date: 12/22/17 Removal time: 17:30 Straight Cath placed during this visit: yes Reason for continuing: Acute urinary retention Insertion date: 12/24/17 Insertion time: 13:00 Results - Labs CBC & Chem 7: 12/30/17 07:37 12/31/17 04:35 Laboratory Results - last 24 hr 01/02/18 12:29 POC Glucose 105 Assessment and Plan - Plan IMPRESSION RESPIRATORY FAILURE PNA HILAR ADENOPATHY HEAD AND NECK CA PLAN O2 ANTIBX PULM TOILET BRONCHOSCPY WHEN ON FLOOR
--- NOTE | 2018-01-03 12:39 | P.PNIM ---
Subjective Interval history: Follow up: Aspiration pneumonia, Acute encephalopathy, acute cva right frontal/ occipital and right carotid obstruction 80% proximal to stent. Patient reports feeling weak denies SOB Physical Exam Vital signs: Vital Signs 01/02/18 13:00 01/02/18 13:51 01/02/18 14:00 Temperature Pulse Rate 96 H 92 H Respiratory Rate 18 Blood Pressure Pulse Oximetry 01/02/18 16:32 01/02/18 17:00 01/02/18 19:51 Temperature 97.7 F Pulse Rate 91 H 97 H 95 H Respiratory Rate 16 18 Blood Pressure 127/60 Pulse Oximetry 98 01/02/18 20:00 01/02/18 21:51 01/02/18 23:00 Temperature 97.6 F 97.7 F Pulse Rate 93 H 84 89 Respiratory Rate 18 14 18 Blood Pressure 160/60 H 149/77 H Pulse Oximetry 98 94 L 100 01/03/18 00:32 01/03/18 01:34 01/03/18 03:09 Temperature Pulse Rate 82 77 Respiratory Rate 14 Blood Pressure Pulse Oximetry 95 01/03/18 04:00 01/03/18 04:11 01/03/18 07:37 Temperature 97.5 F L Pulse Rate 91 H 82 81 Respiratory Rate 18 18 Blood Pressure 124/59 L Pulse Oximetry 93 L 94 L 01/03/18 08:00 01/03/18 12:00 Temperature 97.5 F L 98.1 F Pulse Rate 93 H 79 Respiratory Rate 17 17 Blood Pressure 132/75 141/70 H Pulse Oximetry 96 Intake & Output 01/02/18 01/03/18 01/03/18 18:59 06:59 18:59 Other: Date of Last Bowel Movement 12/30/17 12/30/17 Narrative: GENERAL: This is a well-nourished, well-developed patient, in no apparent distress. CARDIOVASCULAR: Regular rate and rhythm RESPIRATORY: Clear to auscultation. Breath sounds equal bilaterally. No wheezes , rales, or rhonchi. GASTROINTESTINAL: Abdomen soft, non-tender, nondistended. Normal active bowel sounds MUSCULOSKELETAL: Extremities without clubbing, cyanosis, or edema. NEURO: Alert & Oriented. Moves all ext x4 - Urinary Catheter Management Indwelling Urethral Catheter Cath placed during this visit: yes, but has since been removed by the nurse Reason for continuing: Acute urinary retention Insertion date: 12/24/17 Insertion time: 15:45 Removal date: 12/22/17 Removal time: 17:30 Straight Cath placed during this visit: yes Reason for continuing: Acute urinary retention Insertion date: 12/24/17 Insertion time: 13:00 Results - Labs CBC & Chem 7: 12/30/17 07:37 01/05/18 10:30 Assessment and Plan - Assessment (1) Aspiration pneumonia Code(s): J69.0 - Pneumonitis due to inhalation of food and vomit Status: Acute Plan: 67-year-old male with past medical history of head and neck cancer presents from home after being found unresponsive. Patient was found by EMS to have spontaneous respirations palpable pulse and blood pressure but markedly decreased level of consciousness, hypotensive with large amount of tube feeding contents in the oral cavity. Patient has history of head neck cancer and takes no oral medications takes all medications and feedings through PEG tube. Patient was last seen normal approximately at breakfast time on Tuesday and then family members found him unresponsive. Unknown downtime. Upon EMS arrival patient was assessed and suctioned and initial O2 saturations were 60% patient was placed on supplemental oxygen with improved ventilations and then subsequently intubated with a 7.5 endotracheal tube. Per EMS copious amounts of suctioning was performed and large amounts of tube feeding were suctioned. Aspiration pneumonia Acute encephalopathy acute cva right frontal/occipital. 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 Chronic benzodiazepine use, Chronic opioid use Depression disorder urine retention melanotic stool. Precedex titrated off. on klononpin scheduled Fentanyl patch 25 mcg/h home dose. Seroquel 50 mg every 12 hourly as needed for agitation. stopped fentanyl due to sedation. ct head no acute cva initially....repeat CT brain shows concern for evolving cva in occipital/frontal areas. cta showed 80percent obstruction and areas of ulceration proximal to right carotid stent Unable to do MRI brain secondary to retained metal and I according to . Has bilateral internal carotid artery stents. CTA revealed right carotid artery stenosis proximal to internal carotid artery stent. Vascular surgery consult requested by neurology. On aspirin, Plavix on hold for possible gi procedures. . Vascular planning to reevaluate intervention when stable Extubated on 12/14. moved back to ICU for ongoing aspiration. mccray for urine retention. attempt removal when more active PT consultation prn oral suction. dvt prophylaxis. cont nebs. discussed abx with ID. stopped zosyn for pneumonia on 12/29 cont tube feeding support. cont reglan - hold lovenox - Case d/w with GI, plan for EGD today 01/03 - Case d/w Vascular Surgery, Dr. Reese. He will reevaluate - continue to observe respiratory status - oxygen has been weaned from Bipap to 2L NC - anticipate d/c to SNF vs acute rehab in 1-2 days - Dr. Muñoz will discuss case with Pulmonary Medicine 01/03, possible repeat Bronchoscopy - repeat CBC and BMP in AM Elevated troponin Essential hypertension Coronary artery disease Bilateral carotid artery stents Troponin peaked at 0.39. EKG revealed no acute ST changes or bundle-branch blocks Continue amlodipine 10 mg daily/home medication for hypertension Limited 2D echocardiogram. : (2) Altered mental status Code(s): R41.82 - Altered mental status, unspecified Status: Acute - Attending Attestation Patient examined. Assessment and plan formulated with Trudi Solorzano PA-C. I agree with the above. (1) Aspiration pneumonia Qualifiers: Laterality: bilateral Lung location: unspecified part of lung
--- NOTE | 2018-01-03 13:30 | GIPROC ---
[facility] [address] [facility]. [facility], [address] EGD PROCEDURE REPORT EXAM DATE: 01/03/2018 PATIENT NAME: Simeon Mendoza MR #: [id number] BIRTHDATE: 1950 ATTENDING: Yovana Lau MD ORDER #: [id number] ADVANCE SCOUT: Noah Miranda Stienbarger, Terrie, and Crystal Melissa STATUS: inpatient INDICATIONS: The patient is a 67 yr old male here for an EGD due to acute post hemorrhagic anemia and dysphagia PROCEDURE PERFORMED: EGD w/ percutaneous gastrostomy tube placement MEDICATIONS: None and Per Anesthesia. TOPICAL ANESTHETIC: CONSENT: The patient understands the risks and benefits of the procedure and understands that these risks include, but are not limited to: sedation, allergic reaction, infection, perforation and/or bleeding. Alternative means of evaluation and treatment include, among others: physical exam, x-rays, and/or surgical intervention. The patient elects to proceed with this endoscopic procedure. medical equipment was checked for proper function. Hand hygiene and appropriate measures for infection prevention was taken. After the risks, benefits and alternatives of the procedure were thoroughly explained, Informed consent was verified, confirmed and timeout was successfully executed by the treatment team. The patient was anesthetized with topical anesthesia and the Pentax EG-[id number] endoscope was introduced through the mouth and advanced to the second portion of the duodenum. Retroflexed views revealed no abnormalities The gastroscope was then slowly withdrawn and removed. 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 The stricture was traversable with resistance. STOMACH: G Tube balloon corroded. Old G tube removed. New 20 Fr G tube replaced under direct vision. DUODENUM: The duodenal mucosa appeared normal in the bulb and second portion of the duodenum. ADVERSE EVENTS: There were no complications. IMPRESSIONS: 1. 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 G Tube balloon corroded. Old G tube removed. New 20 Fr G tube replaced under direct vision 3. Normal duodenal mucosa in the bulb and second portion of the duodenum 4. Retroflexed views revealed no abnormalities RECOMMENDATIONS: 1. Anti-reflux regimen 2. Continue PPI 3. PEG recomendations: 1- NPO for 6 hours except for meds 2- Flush PEG tube every 6 hours with water and after each PEG feeding 3- May resume regular diet in the morning 4- May use Ensure or Boost etc. for PEG tube feeding PATIENT CONDITION: stable DISPOSITION: Inpatient REPEAT EXAM: Return as needed for EGD Yovana Lau MD eSigned: Yovana Lau MD 01/03/2018 1:29 PM cc: PATIENT NAME: Simeon Mendoza MR#: [id number]
[2018-01-03] MEDS: Aspirin 325 MG Tablet PO SCH (15:16)
[2018-01-03] MEDS: clonazePAM 0.5 MG Tablet PO SCH (20:37)
[2018-01-03] MEDS: Mirtazapine 15 MG Tablet PO SCH (20:37)
[2018-01-04] MEDS: Oral Hygiene Kit OROPHARYNG SCH ×4 (00:24→17:28)
[2018-01-04] MEDS: Mupirocin 2% Nasal Oint Topical Syringe EACH NARE SCH ×2 (08:06→22:05)
[2018-01-04] MEDS: Chlorhexidine 0.12% Oral Kit 15 ML UDC OROPHARYNG SCH ×2 (08:07→22:04)
[2018-01-04] MEDS: amLODIPine 10 MG Tablet PO SCH (08:07)
[2018-01-04] MEDS: Senna/Docusate Sodium 8.6/50 MG Tablet PO SCH ×2 (08:07→22:04)
[2018-01-04] MEDS: Pantoprazole Inj 40 MG Vial IV.PUSH SCH ×2 (08:07→22:03)
[2018-01-04] MEDS: Aspirin 325 MG Tablet PO SCH (08:07)
--- NOTE | 2018-01-04 08:28 | P.PN ---
Subjective Interval history: ALERT NO SOB AT REST Physical Exam Vital signs: Vital Signs 01/03/18 12:00 01/03/18 13:50 01/03/18 16:00 Temperature 98.1 F 98.2 F 97.4 F L Pulse Rate 93 H 78 88 Respiratory Rate 17 14 20 Blood Pressure 141/70 H 102/58 L 141/73 H Pulse Oximetry 96 98 01/03/18 20:00 01/04/18 00:00 01/04/18 00:30 Temperature 98.1 F 97.5 F L Pulse Rate 93 H 82 Respiratory Rate 18 18 Blood Pressure 147/87 H 131/74 Pulse Oximetry 96 90 L 95 01/04/18 04:00 Temperature 98 F Pulse Rate 77 Respiratory Rate 18 Blood Pressure 138/80 Pulse Oximetry 95 Intake & Output 01/03/18 01/04/18 01/04/18 18:59 06:59 18:59 Intake Total 200 / 200 760 / 760 Output Total 600 / 600 1150 / 1150 Balance -400 / -400 -390 / -390 Weight 71 kg Intake: Oral 0 / 0 Tube Feeding 360 / 360 Water Bolus Amount 400 / 400 Anesthesia Amount 200 / 200 Output: Urine 600 / 600 1150 / 1150 Other: # Incontinent Voids 1 Date of Last Bowel Movement 01/03/18 # Bowel Movements 1 Narrative: GENERAL: This is a well-nourished, well-developed patient, in no apparent distress. CARDIOVASCULAR: Regular rate and rhythm RESPIRATORY: Clear to auscultation. Breath sounds equal bilaterally. No wheezes , rales, or rhonchi. GASTROINTESTINAL: Abdomen soft, non-tender, nondistended. Normal active bowel sounds MUSCULOSKELETAL: Extremities without clubbing, cyanosis, or edema. NEURO: Alert & Oriented. Moves all ext x4 - Urinary Catheter Management Indwelling Urethral Catheter Cath placed during this visit: yes, but has since been removed by the nurse Reason for continuing: Acute urinary retention Insertion date: 12/24/17 Insertion time: 15:45 Removal date: 12/22/17 Removal time: 17:30 Straight Cath placed during this visit: yes Reason for continuing: Acute urinary retention Insertion date: 12/24/17 Insertion time: 13:00 Results - Labs CBC & Chem 7: 12/30/17 07:37 12/31/17 04:35 Assessment and Plan - Plan IMPRESSION RESPIRATORY FAILURE PNA HILAR ADENOPATHY HEAD AND NECK CA PLAN O2 ANTIBX PULM TOILET BRONCHOSCPY WHEN ON FLOOR
--- NOTE | 2018-01-04 10:58 | P.PNVS ---
Subjective Subjective/Hospital Course: 12/18/2017 Patient with multiple medical problems now in respiratory distress in the ICU. I reviewed the laboratory and diagnostic procedures. This gentleman indeed has a right hemispheric stroke by the clinical findings. The initial head CT on 12/11/2017 does not show a stroke; however, repeat CT scan on 12/12/2017 reveals a right frontal occipital ischemic infarction, which is consistent with the patient's findings. The CTA of the neck, on the other hand, reveals bilateral carotid stents which were passed at some point in the past, and about 80% stenosis on the right. This is quite the problem at this time. There is an ulcerated plaque present in the area. Removing the stents is almost impossible,and doing the surgery on top of the stents with the radiated neck would be unwise. Therefore at some point if patient improves we can always place another right carotid stent below the first one, which clearly did not encompass the area of stenosis in the first place. At this point however patient has multiple other medical issues and if and when he improves we will readdress the right carotid stenosis but at this time patient is not a candidate for any semielective procedure. 01/04/2018 Patient with previous carotid stents and now CTA finding of 80% stenosis of the right internal carotid artery below the level of the stent Patient underwent formal angiogram today and this reveals normal flow with minimal stenosis and therefore no intervention is necessary at this time We will sign off from vascular point Thanks J Objective Vital Signs / I&O: Vital Signs 01/03/18 12:00 01/03/18 13:50 01/03/18 16:00 Temperature 98.1 F 98.2 F 97.4 F L Pulse Rate 93 H 78 88 Respiratory Rate 17 14 20 Blood Pressure 141/70 H 102/58 L 141/73 H Pulse Oximetry 96 98 01/03/18 20:00 01/04/18 00:00 01/04/18 00:30 Temperature 98.1 F 97.5 F L Pulse Rate 93 H 82 Respiratory Rate 18 18 Blood Pressure 147/87 H 131/74 Pulse Oximetry 96 90 L 95 01/04/18 04:00 01/04/18 08:00 01/04/18 08:32 Temperature 98 F 97.9 F Pulse Rate 77 82 Respiratory Rate 18 16 Blood Pressure 138/80 131/75 Pulse Oximetry 95 95 95 Intake & Output 01/03/18 01/04/18 01/04/18 18:59 06:59 18:59 Intake Total 200 / 200 760 / 760 Output Total 600 / 600 1150 / 1150 Balance -400 / -400 -390 / -390 Weight 71 kg Intake: Oral 0 / 0 Tube Feeding 360 / 360 Water Bolus Amount 400 / 400 Anesthesia Amount 200 / 200 Output: Urine 600 / 600 1150 / 1150 Other: # Incontinent Voids 1 Date of Last Bowel Movement 01/03/18 # Bowel Movements 1 Impressions Neck CTA 12/12/17 00:00 CONCLUSION: 1. Atelectatic calcifications and areas of ulceration involving the origin of the right internal carotid artery with approximate 70-80% stenosis right at the takeoff of the right ICA prior to the start of the patient's internal coronary stent.
--- NOTE | 2018-01-04 13:54 | P.PNIM ---
Subjective Interval history: Follow up: Aspiration pneumonia, Acute encephalopathy, acute cva right frontal/ occipital denies SOB Physical Exam Vital signs: Vital Signs 01/03/18 16:00 01/03/18 20:00 01/04/18 00:00 Temperature 97.4 F L 98.1 F 97.5 F L Pulse Rate 88 93 H 82 Respiratory Rate 20 18 18 Blood Pressure 141/73 H 147/87 H 131/74 Pulse Oximetry 98 96 90 L 01/04/18 00:30 01/04/18 04:00 01/04/18 08:00 Temperature 98 F 97.9 F Pulse Rate 77 82 Respiratory Rate 18 16 Blood Pressure 138/80 131/75 Pulse Oximetry 95 95 95 01/04/18 08:32 01/04/18 12:00 Temperature 97.4 F L Pulse Rate 81 Respiratory Rate 17 Blood Pressure 122/71 Pulse Oximetry 95 98 Intake & Output 01/03/18 01/04/18 01/04/18 18:59 06:59 18:59 Intake Total 200 / 200 760 / 760 Output Total 600 / 600 1150 / 1150 Balance -400 / -400 -390 / -390 Weight 71 kg Intake: Oral 0 / 0 Tube Feeding 360 / 360 Water Bolus Amount 400 / 400 Anesthesia Amount 200 / 200 Output: Urine 600 / 600 1150 / 1150 Other: # Incontinent Voids 1 Date of Last Bowel Movement 01/03/18 # Bowel Movements 1 - Urinary Catheter Management Indwelling Urethral Catheter Cath placed during this visit: yes, but has since been removed by the nurse Reason for continuing: Acute urinary retention Insertion date: 12/24/17 Insertion time: 15:45 Removal date: 12/22/17 Removal time: 17:30 Straight Cath placed during this visit: yes Reason for continuing: Acute urinary retention Insertion date: 12/24/17 Insertion time: 13:00 Results - Labs CBC & Chem 7: 12/30/17 07:37 01/05/18 10:30 - Imaging Impressions Neck CTA 12/12/17 00:00 CONCLUSION: 1. Atelectatic calcifications and areas of ulceration involving the origin of the right internal carotid artery with approximate 70-80% stenosis right at the takeoff of the right ICA prior to the start of the patient's internal coronary stent. Assessment and Plan - Assessment (1) Aspiration pneumonia Code(s): J69.0 - Pneumonitis due to inhalation of food and vomit Status: Acute Plan: 67-year-old male with past medical history of head and neck cancer presents from home after being found unresponsive. Patient was found by EMS to have spontaneous respirations palpable pulse and blood pressure but markedly decreased level of consciousness, hypotensive with large amount of tube feeding contents in the oral cavity. Patient has history of head neck cancer and takes no oral medications takes all medications and feedings through PEG tube. Patient was last seen normal approximately at breakfast time on Tuesday and then family members found him unresponsive. Unknown downtime. Upon EMS arrival patient was assessed and suctioned and initial O2 saturations were 60% patient was placed on supplemental oxygen with improved ventilations and then subsequently intubated with a 7.5 endotracheal tube. Per EMS copious amounts of suctioning was performed and large amounts of tube feeding were suctioned. Aspiration pneumonia Acute encephalopathy acute cva right frontal/occipital. 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 Chronic benzodiazepine use, Chronic opioid use Depression disorder urine retention melanotic stool. Precedex titrated off. on klononpin scheduled Fentanyl patch 25 mcg/h home dose. Seroquel 50 mg every 12 hourly as needed for agitation. stopped fentanyl due to sedation. ct head no acute cva initially....repeat CT brain shows concern for evolving cva in occipital/frontal areas. cta showed 80percent obstruction and areas of ulceration proximal to right carotid stent Unable to do MRI brain secondary to retained metal and I according to . Has bilateral internal carotid artery stents. CTA revealed right carotid artery stenosis proximal to internal carotid artery stent. Vascular surgery consult requested by neurology. On aspirin, Plavix on hold for possible gi procedures. . Vascular planning to reevaluate intervention when stable Extubated on 12/14. moved back to ICU for ongoing aspiration. mccray for urine retention. attempt removal when more active PT consultation prn oral suction. dvt prophylaxis. cont nebs. discussed abx with ID. stopped zosyn for pneumonia on 12/29 cont tube feeding support. cont reglan - hold lovenox - Case d/w with GI, plan for EGD today 01/03 - Dr. Acevedo discussed the case with radiology and Dr. Reese 01/04/18. Dr. Wright and Dr. Reese reevaluated the CTA study and they do not feel that the patient requires intervention. - oxygen has been weaned 2L NC - patient NPO after midnight for possible bronchoscopy with Dr. Starr 01/05 - anticipate d/c to acute rehab in 1- 2 days - repeat CBC and BMP in AM Elevated troponin Essential hypertension Coronary artery disease Bilateral carotid artery stents Troponin peaked at 0.39. EKG revealed no acute ST changes or bundle-branch blocks Continue amlodipine 10 mg daily/home medication for hypertension Limited 2D echocardiogram. : (2) Altered mental status Code(s): R41.82 - Altered mental status, unspecified Status: Acute - Attending Attestation Patient examined. Assessment and plan formulated with Trudi Solorzano PA-C. I agree with the above. (1) Aspiration pneumonia Qualifiers: Laterality: bilateral Lung location: unspecified part of lung
[2018-01-04] MEDS: Mirtazapine 15 MG Tablet PO SCH (22:03)
[2018-01-04] MEDS: clonazePAM 0.5 MG Tablet PO SCH (22:04)
[2018-01-05] MEDS: Oral Hygiene Kit OROPHARYNG SCH ×4 (00:20→16:28)
--- NOTE | 2018-01-05 08:43 | MR ---
cc: Ro Starr MD DATE: 01/05/2018 PROCEDURE: Fiberoptic bronchoscopy, flexible. REASON FOR BRONCHOSCOPY: Hilar adenopathy, rule out underlying malignancy. PROCEDURE: Fiberoptic bronchoscopy performed via LMA. Significant distortion of the upper airway above the vocal cords noted. The vocal cords themselves seem intact. The trachea is mildly hyperemic. Mariann sharp. Right main stem bronchus, right upper, middle, lower lobe left main bronchus, left upper and lower lobe, all inspected. No obstructive pathology or mass lesion seen. Mild hyperemia throughout noted. Washings obtained from both sides of the tracheobronchial tree for routine TB, fungal cultures, cytological exam. Cytologic brush biopsy, right lower lobe obtained for cytological exam. Procedure well tolerated. The patient was transferred to the recovery room in stable condition. IMPRESSION: 1. Mild tracheobronchitis. 2. No obstruction, no mass lesion. 3. Three samples obtained as above. 4. Procedure was terminated. 5. The patient was transferred to recovery in stable condition. Ro Starr MD WWW/dontrell , 08:11 AM , 08:17 AM TATA
[2018-01-05 08:59] VITALS: RESP 16
--- NOTE | 2018-01-05 09:05 | XR ---
EXAM DATE: 01/05/2018 8:11 AM EDT AGE/SEX: 67 years / Male INDICATIONS: Evaluate for pneumothorax. CLINICAL DATA: This is the patient's subsequent encounter. Patient reports that signs and symptoms h ave been present for 2 days and indicates a pain score of 0/10. MEDICAL/SURGICAL HISTORY: Cerebrovascular disease. Cardiovascular disease. Hypertension. . Th roat and tongue ca. Coronary artery stent. COMPARISON: C, CHEST 1V SINGLE AP, 01/02/2018. . FINDINGS: Improved aeration at the right lung base. No evidence for pneumothorax. The cardiomediastinal contour s are unremarkable. Osseous structures are intact. CONCLUSION: 1. No pneumothorax. Electronically signed by: Alex Hall MD 01/05/2018 9:04 AM EDT
--- NOTE | 2018-01-05 09:32 | P.DS ---
<Trudi Solorzano W - Last Filed: 01/05/18 15:09> Date of admission: 12/11/17 23:07 Primary care physician: Ondina Boyer MD Attending physician on discharge: Jasen Muñoz Anticipated date of discharge: 01/05/18 Brief History from admission: 67-year-old male with past medical history of head and neck cancer presents from home after being found unresponsive. Patient was found by EMS to have spontaneous respirations palpable pulse and blood pressure but markedly decreased level of consciousness, hypotensive with large amount of tube feeding contents in the oral cavity. Patient has history of head neck cancer and takes no oral medications takes all medications and feedings through PEG tube. Patient was last seen normal approximately at breakfast time on Tuesday and then family members found him unresponsive. Unknown downtime. Upon EMS arrival patient was assessed and suctioned and initial O2 saturations were 60% patient was placed on supplemental oxygen with improved ventilations and then subsequently intubated with a 7.5 endotracheal tube. Per EMS copious amounts of suctioning was performed and large amounts of tube feeding were suctioned. Patient presents now with endotracheal tube in place bilateral breath sounds to auscultation with bag valve ventilation and normotensive upon EMS presentation however initial blood pressure here mildly hypotensive with systolic pressure of 90 mmHg. Patient remains unresponsive. Family members not available. Patient with known allergies to narcotics. No other medical history is available. Patient update on day of discharge: Patient S/P Bronchoscopy today looking forward to starting rehab DS: Diagnosis - Discharge Diagnosis (1) Aspiration pneumonia Status: Acute (2) Respiratory failure Status: Acute (3) Altered mental status Status: Acute DS: Summary Hospital Course: 67-year-old male with past medical history of head and neck cancer presents from home after being found unresponsive. Patient was found by EMS to have spontaneous respirations palpable pulse and blood pressure but markedly decreased level of consciousness, hypotensive with large amount of tube feeding contents in the oral cavity. Patient has history of head neck cancer and takes no oral medications takes all medications and feedings through PEG tube. Patient was last seen normal approximately at breakfast time on Tuesday and then family members found him unresponsive. Unknown downtime. Upon EMS arrival patient was assessed and suctioned and initial O2 saturations were 60% patient was placed on supplemental oxygen with improved ventilations and then subsequently intubated with a 7.5 endotracheal tube. Per EMS copious amounts of suctioning was performed and large amounts of tube feeding were suctioned. Aspiration pneumonia Acute encephalopathy acute cva right frontal/occipital Chronic benzodiazepine use, Chronic opioid use Depression disorder urine retention melanotic stool. Precedex titrated off. on klononpin scheduled Fentanyl patch 25 mcg/h home dose. Seroquel 50 mg every 12 hourly as needed for agitation. stopped fentanyl due to sedation. ct head no acute cva initially....repeat CT brain shows concern for evolving cva in occipital/frontal areas. also believe that poly pharmacy contributed to patient's status. He was found with three fentanyl patches on,. Did not continue fentanyl patch during hospitalization or at time of DC initially cta showed 80percent obstruction and areas of ulceration proximal to right carotid stent Unable to do MRI brain secondary to retained metal and I according to . Has bilateral internal carotid artery stents. CTA revealed right carotid artery stenosis proximal to internal carotid artery stent. Vascular surgery consult requested by neurology. On aspirin, Plavix on hold for possible gi procedures. . Vascular planning to reevaluate intervention when stable Extubated on 12/14. moved back to ICU for ongoing aspiration. mccray for urine retention. attempt removal when more active PT consultation prn oral suction. dvt prophylaxis. cont nebs. discussed abx with ID. stopped zosyn for pneumonia on 12/29 cont tube feeding support. cont reglan - hold lovenox - Case d/w with GI, plan for EGD today 01/03 - Dr. Acevedo discussed the case with radiology and Dr. Reese 01/04/18. Dr. Wright and Dr. Reese reevaluated the CTA study and they do not feel that the patient requires intervention. - oxygen has been weaned 2L NC - S/P bronchoscopy with Dr. Starr 01/05 Elevated troponin Essential hypertension Coronary artery disease Bilateral carotid artery stents Troponin peaked at 0.39. EKG revealed no acute ST changes or bundle-branch blocks Continue amlodipine 10 mg daily/home medication for hypertension Limited 2D echocardiogram. - Time Spent with Patient Total time spent providing and/or coordinating discharge services: Greater than 30 minutes Exam Vital signs: Vital Signs 01/04/18 12:00 01/04/18 16:00 01/04/18 20:00 Temperature 97.4 F L 98.1 F 95.6 F L Pulse Rate 83 84 71 Respiratory Rate 17 17 20 Blood Pressure 122/71 136/68 132/71 Pulse Oximetry 98 93 L 95 01/04/18 20:04 01/04/18 20:16 01/05/18 00:00 Temperature 97.8 F Pulse Rate 80 Respiratory Rate 16 Blood Pressure 115/68 Pulse Oximetry 98 99 94 L 01/05/18 04:00 01/05/18 06:51 01/05/18 08:13 Temperature 97.3 F L 97.9 F 97.9 F Pulse Rate 75 81 83 Respiratory Rate 18 18 20 Blood Pressure 131/83 112/75 117/70 Pulse Oximetry 99 97 91 L 01/05/18 08:15 01/05/18 08:30 01/05/18 08:45 Temperature 97.9 F Pulse Rate 83 86 85 Respiratory Rate 16 16 16 Blood Pressure 120/68 121/59 L 125/61 Pulse Oximetry 90 L 92 L 93 L Intake & Output 01/04/18 01/05/18 01/05/18 18:59 06:59 18:59 Intake Total 700 / 700 Output Total 50 / 50 300 / 300 Balance -50 / -50 400 / 400 Intake: Tube Feeding 700 / 700 Output: Urine 50 / 50 300 / 300 Other: Date of Last Bowel Movement 01/04/18 # Bowel Movements 0 Narrative: GENERAL: This is a well-nourished, well-developed patient, in no apparent distress. CARDIOVASCULAR: Regular rate and rhythm RESPIRATORY: Clear to auscultation. Breath sounds equal bilaterally. No wheezes , rales, or rhonchi. GASTROINTESTINAL: Abdomen soft, non-tender, nondistended. Normal active bowel sounds. feeding tube in place MUSCULOSKELETAL: Extremities without clubbing, cyanosis, or edema. NEURO: Alert & Oriented. Moves all ext x4 Results Procedures completed during hospitalization: EGD today 01/[address] Starr 01/05 Pending studies at discharge: Pending at discharge 01/05/18 07:57 Cytology [PTH] Routine 01/05/18 08:01 Cytology [PTH] Routine - Impressions ITS Impressions Cervical Spine CT 12/12/17 00:00 CONCLUSION: No acute cervical spine abnormality is identified. Head CTA 12/12/17 00:00 CONCLUSION: 1. Negative CTA Head. Neck CTA 12/12/17 00:00 CONCLUSION: 1. Atelectatic calcifications and areas of ulceration involving the origin of the right internal carotid artery with approximate 70-80% stenosis right at the takeoff of the right ICA prior to the start of the patient's internal coronary stent. Head CT 12/12/17 12:29 CONCLUSION: 1. Subtle areas of low attenuation are now seen in the right frontal and occipital regions of concern for areas of evolving infarction. There is no hemorrhage or mass effect. . Chest CTA 12/21/17 00:00 CONCLUSION: 1. Apparent right subclavian artery. 2. Mildly enlarged subcarinal and right hilar lymph nodes. adenopathy. 3. Scattered pulmonary infiltrates including right lower lobe consolidation with air bronchogram formation. 4. Atherosclerosis. 5. No evidence for pulmonary embolism. Liver Ultrasound 12/24/17 00:00 CONCLUSION: 1. Negative ultrasound liver. Chest X-Ray 01/05/18 08:11 CONCLUSION: 1. No pneumothorax. <Jasen Muñoz - Last Filed: 01/14/18 20:22> Date of admission: 12/11/17 23:07 Primary care physician: Ondina Boyer MD DS: Diagnosis - Discharge Diagnosis (1) Aspiration pneumonia Status: Acute (2) Altered mental status Status: Acute DS: Summary Hospital Course: Patient examined. Assessment and plan formulated with Trudi Solorzano PA-C. I agree with the above. - Time Spent with Patient Total time spent providing and/or coordinating discharge services: Results Labs on day of discharge: Preliminary micro results at discharge 01/05/18 07:46 Fungal Culture - Preliminary Bronchial Washings - Bronchial No growth in 1 week 01/05/18 07:46 Mycobacterial Culture - Preliminary Bronchial Washings - Bronchial No growth in 1 week - Impressions ITS Impressions Cervical Spine CT 12/12/17 00:00 CONCLUSION: No acute cervical spine abnormality is identified. Head CTA 12/12/17 00:00 CONCLUSION: 1. Negative CTA Head. Neck CTA 12/12/17 00:00 CONCLUSION: 1. Atelectatic calcifications and areas of ulceration involving the origin of the right internal carotid artery with approximate 70-80% stenosis right at the takeoff of the right ICA prior to the start of the patient's internal coronary stent. Head CT 12/12/17 12:29 CONCLUSION: 1. Subtle areas of low attenuation are now seen in the right frontal and occipital regions of concern for areas of evolving infarction. There is no hemorrhage or mass effect. . Chest CTA 12/21/17 00:00 CONCLUSION: 1. Apparent right subclavian artery. 2. Mildly enlarged subcarinal and right hilar lymph nodes. adenopathy. 3. Scattered pulmonary infiltrates including right lower lobe consolidation with air bronchogram formation. 4. Atherosclerosis. 5. No evidence for pulmonary embolism. Liver Ultrasound 12/24/17 00:00 CONCLUSION: 1. Negative ultrasound liver. Chest X-Ray 01/05/18 08:11 CONCLUSION: 1. No pneumothorax. Discharge Plan - Discharge Order Discharge Orders: Discharge Order (Routine); Ordered 01/05/18 Ordered By: Trudi Solorzano - Discharge Details Anticipated Discharge Date: 01/05/18 - Physicians Team Primary Care Provider: Ondina Boyer Attending Provider: Jasen Muñoz Other Providers: Danile Lopez MD ; Aris Link MD, PhD ; [facility] ; Garth Reese MD ; Chintan Wei MD ; Erika Ridley MD ; Ming Ni MD ; Jaja Wong MD ; Jasen Muñoz, DO ; [facility] ; Fahad Muñoz MD
[2018-01-05] MEDS: Chlorhexidine 0.12% Oral Kit 15 ML UDC OROPHARYNG SCH (10:37)
[2018-01-05] MEDS: Aspirin 325 MG Tablet PO SCH (10:38)
[2018-01-05] MEDS: Senna/Docusate Sodium 8.6/50 MG Tablet PO SCH (10:39)
[2018-01-05] MEDS: Mupirocin 2% Nasal Oint Topical Syringe EACH NARE SCH (10:40)
[2018-01-05] MEDS: Pantoprazole Inj 40 MG Vial IV.PUSH SCH (10:42)
[2018-01-05] MEDS: amLODIPine 10 MG Tablet PO SCH (10:45)
[2018-01-05 11:10] LABS: Anion Gap 7 meq/L (5-15); Blood Urea Nitrogen 21 mg/dL (7-18); Calcium 8.6 mg/dL (8.5-10.1); Carbon Dioxide 28.4 meq/L (21.0-32.0); Chloride 106 meq/L (98-107); Glomerular Filtration Rate Greater Than 89 mL/min (>89); Glucose,Random 97 mg/dL (74-106); Potassium 3.4 meq/L (3.5-5.1); Sodium 141 meq/L (136-145)
[2018-01-05 12:35] VITALS: BP 139/78; TEMP 98.3; O2SAT 97
[2018-01-05] MEDS ORDERED: Potassium Chloride 25 MEQ Effervescent Tablet PO ONE (12:45)
[2018-01-05 14:51] VITALS: PULSE 75
--- NOTE | 2018-01-05 15:40 | P.PNPAL ---
Reason for Visit Reason for visit: a. To assist with evaluation and management of symptoms including: Pain, dyspnea b. To assist medical decision maker(s) with: better understanding of current medical conditions; weighing benefits/burdens of medical treatment options; making medical treatment decisions. Subjective Subjective/Interval History: Follow up medically necessary for symptom management of dyspnea, pain and goals of medical treatment. He is status post bronchoscopy today by Dr. Starr. His dyspnea continues to improve. He did require BiPAP overnight, however is on 2 L nasal cannula saturating adequately today. He states he feels slightly dyspneic, mild in intensity, with increased sputum production status post bronchoscopy and mild cough. The dyspnea is constant, moderate in intensity exacerbated by activity, relieved by rest. He is receiving 3-5 doses of Valrico 5/325 mg daily. His most recent pain measurement was 8/10 described as a generalized aching, moderately severe, intermittent without exacerbating factors, relieved by narcotics. . Family/Friend Interactions: Spoke with his and patient at bedside. Reviewed patient's condition after bronchoscopy. Discussed rehab at [facility] and plan for discharge today or tomorrow. Family questioned follow-through on bronchoscopy cultures and advised them that [facility] would be able to follow the culture results. Reviewed symptom management, patient comfort, exacerbating and relieving factors. Family expressed appreciation for palliative care services and support. They were advised that because he is being discharged from [facility], palliative care will not see him in [facility], however if they feel the need for palliative care services, they can request a consultation. . Advance Directives Living Will: Copy in medical record Health Care Surrogate: Copy in medical record Durable Power of Line Supply: Never completed Advance Directives Date on File: 06/18/13 Health Care Surrogate Name and Number: Reji Rivas [phone] Alt: Howard Leonardo [phone] Objective Vital Signs: Vital Signs 01/04/18 16:00 01/04/18 20:00 01/04/18 20:04 Temperature 98.1 F 95.6 F L Pulse Rate 84 71 Respiratory Rate 17 20 Blood Pressure 136/68 132/71 Pulse Oximetry 93 L 95 98 01/04/18 20:16 01/05/18 00:00 01/05/18 04:00 Temperature 97.8 F 97.3 F L Pulse Rate 80 75 Respiratory Rate 16 18 Blood Pressure 115/68 131/83 Pulse Oximetry 99 94 L 99 01/05/18 06:51 01/05/18 08:13 01/05/18 08:15 Temperature 97.9 F 97.9 F Pulse Rate 81 83 83 Respiratory Rate 18 20 16 Blood Pressure 112/75 117/70 120/68 Pulse Oximetry 97 91 L 90 L 01/05/18 08:30 01/05/18 08:45 01/05/18 09:09 Temperature 97.9 F Pulse Rate 86 85 83 Respiratory Rate 16 16 Blood Pressure 121/59 L 125/61 Pulse Oximetry 92 L 93 L 01/05/18 09:59 01/05/18 10:54 01/05/18 12:00 Temperature 98.2 F 98.3 F Pulse Rate 84 75 Respiratory Rate 16 16 Blood Pressure 116/71 139/78 Pulse Oximetry 98 95 97 Intake & Output 01/04/18 01/05/18 01/05/18 18:59 06:59 18:59 Intake Total 700 / 700 Output Total 50 / 50 300 / 300 Balance -50 / -50 400 / 400 Intake: Tube Feeding 700 / 700 Output: Urine 50 / 50 300 / 300 Other: Date of Last Bowel Movement 01/04/18 # Bowel Movements 0 Physical Exam: CONSTITUTIONAL/GENERAL: This is an adequately nourished patient, alert, conversant, in no acute distress. TUBES/LINES/DRAINS:PIV, PEG tube, PIV. Salas catheter, SCDs NECK: Trachea midline. Supple, nontender. CARDIOVASCULAR: S1, S2 normal,no murmurs, gallops, or rubs. No JVD. Peripheral pulses symmetric. RESPIRATORY/CHEST: Symmetric, unlabored respirations. Breath sounds equal bilaterally. Occasional rhonchi, diminished in the bases. On nasal cannula O2. GASTROINTESTINAL: Abdomen soft, non-tender, nondistended. No guarding.Hypoactive sounds present. PEG tube intact GENITOURINARY: Without palpable bladder distension. Voiding. MUSCULOSKELETAL: Extremities without clubbing or cyanosis, trace generalized edema. No joint tenderness or effusion noted. No calf tenderness. No mottling or clubbing. LUE weakness. NEUROLOGICAL: Awake, alert, answers appropriately, smiling, conversant, interactive, moving all extremities to command. PSYCHIATRIC: Calm, appropriate. . Diagnostic Tests Laboratory: Laboratory Results - last 72 hr 01/05/18 10:30 Sodium 141 Potassium 3.4 L Chloride 106 Carbon Dioxide 28.4 Anion Gap 7 BUN 21 H Creatinine 0.64 Estimated GFR Greater than 89 Random Glucose 97 Calcium 8.6 Result Diagrams: 12/30/17 07:37 01/05/18 10:30 Microbiology: Microbiology 01/05/18 07:46 Gram Stain - Final Bronchial - Bronchial 01/05/18 07:46 Fungal Smear - Final Bronchial Washings - Bronchial No fungal elements seen Imaging: Chest X-Ray 12/11/17 22:21 CONCLUSION: 1. Underinflation with perihilar interstitial prominence which could be related to the underinflation or could represent pulmonary edema. No airspace consolidation is identified. 2. Endotracheal tube tip measures 2.7 cm from the rosette. Cervical Spine CT 12/12/17 00:00 CONCLUSION: No acute cervical spine abnormality is identified. Head CT 12/12/17 00:00 CONCLUSION: No acute intracranial abnormality is identified. . Head CTA 12/12/17 00:00 CONCLUSION: 1. Negative CTA Head. Neck CTA 12/12/17 00:00 CONCLUSION: 1. Atelectatic calcifications and areas of ulceration involving the origin of the right internal carotid artery with approximate 70-80% stenosis right at the takeoff of the right ICA prior to the start of the patient's internal coronary stent. Head CT 12/12/17 12:29 CONCLUSION: 1. Subtle areas of low attenuation are now seen in the right frontal and occipital regions of concern for areas of evolving infarction. There is no hemorrhage or mass effect. . Chest X-Ray 12/13/17 06:00 CONCLUSION: Mildly increased perihilar interstitial and airspace opacities. Although nonspecific the appearance could be related to pulmonary edema in the appropriate clinical setting. Chest X-Ray 12/17/17 11:50 CONCLUSION: Interval extubation with improved lung exam. Chest X-Ray 12/20/17 00:00 CONCLUSION: Continued prominence of the right bethel with continued infiltrate predominantly within the right lung. Changes are stable compared to previous. At some point, CT imaging would be of benefit to exclude right hilar mass if this has not already been performed. Chest CTA 12/21/17 00:00 CONCLUSION: 1. Apparent right subclavian artery. 2. Mildly enlarged subcarinal and right hilar lymph nodes. adenopathy. 3. Scattered pulmonary infiltrates including right lower lobe consolidation with air bronchogram formation. 4. Atherosclerosis. 5. No evidence for pulmonary embolism. Liver Ultrasound 12/24/17 00:00 CONCLUSION: 1. Negative ultrasound liver. Chest X-Ray 12/25/17 06:00 CONCLUSION: 1. Improved right lower lobe airspace disease. 2. Improved prominence of the right bethel which may reflect improving adenopathy. Chest X-Ray 12/27/17 00:00 CONCLUSION: No significant change. Chest X-Ray 01/02/18 00:00 CONCLUSION: Scarring or atelectasis at the right lung base. No other acute cardiopulmonary disease identified. Chest X-Ray 01/05/18 08:11 CONCLUSION: 1. No pneumothorax. Procedures: 12/11/2017-Intubation- in the field Assessment and Plan Pertinent Non-Medical Issues: Psychosocial: Patient was born in [place], [place]. He moved to [place] where he lived for approximately 20 years and then moved to [place] with for another approximate 20 years. Patient recently moved to [place] 5 years ago. Patient is been to his current for 48 years. They have 2 adult daughters, 8 grandchildren and great-grandchildren. 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 Spiritual: No oriental orthodox affiliation. Legal: Patient has completed healthcare surrogate and living will. (Spouse and daughter provided with copies from last hospital hospitalization) Ethical issues impacting care: None identified at this time. Important Contacts: Spouse- Evelyn Mendoza S- [phone] Daughter- Malissa Lockhart- [phone] Prognosis: Mr. 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 Patient was brought to the emergency room by EMS on was found unresponsive at home with copious oral secretions identified as tube feeding. When EMS arrived patient was found to have spontaneous respirations, palpable pulse and was hypotensive with SBP in the 90s, and decreased level of consciousness. Patient`s O2 saturation was 60% at scene, was intubated and suctioned. Clinical course complicated with acute respiratory failure. 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 . Code Status: Full Code Plan: PLAN: Legal decision maker: Patient is currently awake and interactive. Due to intermittent confusion previously seen, he may benefit from shared decision making with his . It is unknown at this time whether the patient will be able to fully regain previous capacity. Patient's healthcare surrogate is his Evelyn Mendoza and his alternate healthcare surrogate is his daughter Malissa Lawrence. Goals: Aggressive. Family is hopeful at this time that patient will recover. Family at this point wants patient to be a full code though patient`s stated that if patient would require tracheostomy placement, she is unsure if she will proceed with that. CODE STATUS: Full Code SYMPTOMS: * Shortness of breath: Likely chronic, multifactorial related to previous extensive head and neck cancer with surgery, chemotherapy and radiation, recent aspiration and continued daily cigarette use. Improving after bronchoscopy, but required BiPAP overnight. Remains on O2 at 2 L nasal cannula today. Cytology pending. * Pain: Chronic, multifactorial to include low back pain, chronic right neck pain after radiation, chemo, surgery and cellulitis. Controlled on Valrico 5/325 mg every 4 hours PRN. Will need follow-up with outpatient pain management on discharge. Previously followed with Dr. Blair. Palliative care will continue to follow the patient during hospital course as condition evolves, to assist patient/decision-maker with understanding of their medical conditions, weighing benefits/burdens of treatment options, for clarification of goals of treatment. Additionally will assist with any symptoms of palliative concern Attestation Attestation: To help prompt me to consider important information that might be impacting today's encounter and assessment, information from prior notes written by myself or my colleagues may have been "brought forward" into today's note. My signature on this note, however, is an attestation that I personally performed the exam, history, and/or decision-making noted today, and, unless otherwise indicated, the interactions with patient, family, and staff as well as the review of records all occurred today. I also attest that the listed assessment and stated plan reflect my best clinical judgment today based on the combination of historical information, prior notes, and today's exam/ interactions. When time spent is documented, it refers only to time spent today by the signer, or if indicated, combined time spent today by collaborating physician/nurse practitioner. .
== END 2018-01-05 17:45 ==
LOC: NEPC 22:15 → NEDA 23:07 → N03 12-12 01:36 → N05 12-16 10:10 → HIMC 12-17 10:55 → HCIS 12-29 15:07 → N04 01-02 17:38
PROVIDERS: ADMIT Hospitalist; ATTEND Hospitalist
PROC: PANENDO (2018-01-03 12:56)